=== PATIENT | female | born 1985 | race Caucasian/White ===

== ENCOUNTER 2023-03-10 07:18 | Emergency (ER) | payer SELFPAY ==
[2023-03-10 07:24] VITALS: BP 109/59; PULSE 81; RESP 18; TEMP 37.2; O2SAT 99; BMI 39.5
--- NOTE | 2023-03-10 07:32 | ED_ITS ---
HPI - Back Pain/Injury General Chief Complaint: Back Pain/Injury Stated Complaint: LOWER BACK PAIN Time Seen by Provider: 03/10/23 07:32 Source: patient and family Mode of arrival: walk-in Limitations: no limitations History of Present Illness HPI Narrative: Patient presents to emergency department complaining of low back pain. Patient states 3 days ago she woke up with lumbar Sacral pain. She denies any trauma. She states the pain radiates to bilateral hips. She denies any paresthesias.She denies any urinary, bowel incontinence, retention. He denies any lower extremity weakness. She has taken bmru-fhd-[id number] medications without any relief. She denies any fever, chills.She states she had imaging done years ago. Patient denies any flank pain, hematuria, dysuria. She denies any abdominal pain. She denies any lower extremity edema. She denies any chest pain, shortness of breath. Pain is worse when she tries to move, get off the commode could out of bed and even when she coughs. Pertinent past history: Denies IV drug use or incontinence Related Data Previous Rx's Medication Instructions Recorded hydrocodone 5 mg-acetaminophen 325 1 tab PO Q8H PRN pain 5 days #14 03/10/23 mg tablet tabs methylprednisolone 4 mg tablets in 4 mg PO DAILY #21 ea 03/10/23 a dose pack (Medrol (Tanner)) Allergies Allergy/AdvReac Type Severity Reaction Status Date / Time buspirone [From BuSpar] Allergy Severe Migraine Verified 03/10/23 07:23 sulfamethoxazole Allergy Severe Anaphylaxis Verified 03/10/23 07:23 [From Bactrim] trimethoprim [From Bactrim] Allergy Severe Anaphylaxis Verified 03/10/23 07:23 venlafaxine [From Effexor] Allergy Severe syncope Verified 03/10/23 07:23 acetaminophen [From Percocet] AdvReac Severe Anxiety Verified 03/10/23 07:23 oxycodone [From Percocet] AdvReac Severe Anxiety Verified 03/10/23 07:23 Review of Systems ROS Status of ROS 10 or more systems reviewed and unremarkable except as noted in history and below PFSH PFSH Social History Smoking status: Current every day smoker Exam Narrative Exam Narrative: Nurses notes and vital signs reviewed and patient is not hypoxic. General: Nontoxic, Well-appearing and in no apparent distress. Skin: Warm, dry, no pallor noted. No Rash Head: Normocephalic, atraumatic. Neck: Supple, non-tender. Eye: Pupils are equal, round and EOMI. No scleral icterus. Ears, Nose, Mouth, and Throat: TM clear, no posterior oropharynx erythema or nasal mucosal hypertrophy, uvula is mid-line Oral mucosa is moist Cardiovascular: Regular Rate and Rhythm without murmur, gallop or rub. Respiratory: No accessory muscle use or respiratory distress. Lungs are clear to auscultation, no wheezing, rales or rhonchi Chest Wall: no tenderness Back: No midline thoracic. Tenderness to palpation to the lumbosacral. No CVA tenderness Musculoskeletal: normal ROM, no calf or popliteal tenderness, no lower extremity edema/swelling GI: Abdomen is soft, non-distended. Normal bowel sounds. No masses appreciated. No tenderness to palpation. No rebound, guarding, or rigidity noted. Neurological: A&O x4. No cranial nerve dysfunction observed. No truncal ataxia. Moves all extremities. Sensation intact. Psychiatric: Cooperative and interactive. Normal mood and affect. Constitutional Vital Signs, click to edit/add: Last Vital Signs Temp 99.0 F 03/10/23 07:24 Pulse 81 03/10/23 07:24 Resp 18 03/10/23 07:24 BP 109/59 L 03/10/23 07:24 Pulse Ox 99 03/10/23 07:24 O2 Del Method Room Air 03/10/23 07:24 Course Vital Signs Vital signs: Vital Signs Temperature 99.0 F 03/10/23 07:24 Pulse Rate 81 03/10/23 07:24 Respiratory Rate 18 03/10/23 07:24 Blood Pressure 109/59 L 03/10/23 07:24 Pulse Oximetry 99 03/10/23 07:24 Oxygen Delivery Method Room Air 03/10/23 07:24 Temperature 99.0 F 03/10/23 07:24 Pulse Rate 81 03/10/23 07:24 Respiratory Rate 18 03/10/23 07:24 Blood Pressure 109/59 L 03/10/23 07:24 Pulse Oximetry 99 03/10/23 07:24 Oxygen Delivery Method Room Air 03/10/23 07:24 MDM - Back Pain/Injury MDM Narrative Medical decision making narrative: Patient given An injection of Toradol and Norflex. Helped her symptoms a little bit when she is still in significant amount of pain. CT scan results were discussed with the patient. Patient will be given a prescription for a steroid and [place]. She was given an injection of morphine prior to leaving the emergency department which helped her pain completely. At this time the patient is without objective evidence of an acute process requiring hospitalization or inpatient management. The patient has remained hemodynamically stable. No additional indication for emergent studies at this time. I answered all questions. Discussed discharge instructions including standard anticipatory guidance and what should prompt a return to the emergency department, including if they get worse are not getting better or develops any new or concerning symptoms. I've given them specific time frame in which to follow-up, and who to follow-up with. The patient demonstrates understanding. Patient is nontoxic and stable for discharge with outpatient follow-up. This note was created with the assistance of a speech recognition program. Although the intention is to generate documents that actually reflects the content of the visit, no guarantees can be provided that every mistake has been identified and corrected by editing. Medical Records Attestation: I reviewed the patient's medical records. Lab Data Attestation: I reviewed the patient's lab results. Discharge Plan Discharge Chief Complaint: Back Pain/Injury Clinical Impression: Lumbar radiculopathy Patient Disposition: Home, Self-Care Time of Disposition Decision: 09:12 Condition: Good Mode of Transportation: Private Vehicle Prescriptions / Home Meds: New hydrocodone-acetaminophen 5-325 mg tablet 1 tab PO Q8H PRN (Reason: pain) 5 Days Qty: 14 0RF methylprednisolone [Medrol (Tanner)] 4 mg tablets,dose pack 4 mg PO DAILY Qty: 21 0RF Instructions: Lumbar Radiculopathy (ED) Stand Alone Forms: Portal Instructions Referrals: LEN RAMIREZ APRN [Physician] - 1 week MARIE HENRY [Primary Care Provider] - 1 week Discharge Date/Time: 03/10/23 09:30
--- NOTE | 2023-03-10 07:57 | CT_ITS ---
The [address] [address] Patient Name: SILVER ANDUJAR MRN: [id number] date: 1985 Sex: F Assigned Patient Location: ER Current Patient Location: ER Accession/Order Number: [id number] Exam Date: 03/10/2023 08:13 Report Date: 03/10/2023 08:45 At the request of: JOSHUA BAILEY Procedure: CT lumbar spine wo con EXAM: CT lumbar spine wo con HISTORY: pain COMPARISON: None. TECHNIQUE: Axial CT images were obtained of the lumbar spine without intravenous contrast. Multiplanar reconstructions were performed. FINDINGS: No acute fracture or malalignment. A left paracentral broad-based disc bulge is present at the L4-L5 level causing moderate to severe stenosis on the left lateral recess. There is a central disc protrusion at the L5-S1 level causing mild to moderate stenosis of the spinal canal. Otherwise multilevel mild degenerative changes are present in the visualized spine. Unremarkable appearance of the paraspinal soft tissues. CT/CT lumbar spine wo con IMPRESSION: 1. No acute fracture. 2. Disc bulge and protrusion at the L4-L5 and L5-S1 levels respectively which have the potential to be contributing to radicular pain. An MRI of the lumbar spine is more sensitive for characterization of soft tissue abnormalities of the spine. Electronically authenticated by: YUE TRAYLOR Date: 03/10/2023 08:45
[2023-03-10] MEDS: ORPHENADRINE 60 MG/ 2 ML VIAL IM (08:22)
[2023-03-10] MEDS: KETOROLAC TROMETHAMINE 60 MG/2 ML VIAL IM (08:23)
[2023-03-10] MEDS: HYDROCODONE/ACETAMINOPHEN 5-325 MG TABLET 1 TAB PO (09:23)
== END 2023-03-10 09:30 | disposition home or self-care (01) ==
PROVIDERS: Emergency Provider Emergency Medicine; PCP Nurse Practitioner Family
DX: M54.16 Radiculopathy, lumbar region (principal); F17.210 Nicotine dependence, cigarettes, uncomplicated
CPT/HCPCS: 72131; 96372; 99285

== ENCOUNTER 2023-06-16 12:39 | Outpatient (OUT) | payer OTHER, SELFPAY ==
[2023-06-16 13:27] LABS: Bilirubin Urine NEGATIVE (NEGATIVE); Blood Urine NEGATIVE (NEGATIVE); Clarity Urine CLEAR (CLEAR); Color Urine YELLOW (YELLOW); Glucose Urine UA NEGATIVE (NEGATIVE); Ketones Urine TRACE mg/dL (NEGATIVE); Leukocyte Esterase Urine NEGATIVE (NEGATIVE); Nitrite Urine NEGATIVE (NEGATIVE); Protein Urine NEGATIVE (NEG/TRACE); Specific Gravity Urine >=1.030 (1.005-1.025); Urobilinogen Urine 0.2 EU/dL (0.2-1.0); pH Urine 5.5 (5.0-9.0)
[2023-06-16 13:47] LABS: WBC Urine 0-2 #/HPF (NONE SEEN)
[2023-06-16 13:48] LABS: Bacteria Urine TRACE #/HPF (NONE SEEN); Calcium Oxalate Crystals Urine RARE; Crystals Seen? Seen #/HPF (None Seen); Mucus Urine TRACE (NONE SEEN); Squamous Epithelial Cell Urine FEW #/LPF (NONE/RARE)
[2023-06-16 13:49] LABS: Cast Seen? NONE SEEN #/LPF (NONE SEEN); Urine Culture Indicated ALREADY ORDERED
== END 2023-06-16 12:40 | disposition home or self-care (01) ==
LOC: LAB 12:42
PROVIDERS: PCP Nurse Practitioner Family; Visit Provider Nurse Practitioner Family
DX: R30.0 Dysuria (principal)
CPT/HCPCS: 81001; 87086

== ENCOUNTER 2023-06-16 21:18 | Emergency (ER) | payer OTHER, SELFPAY ==
[2023-06-16 21:21] VITALS: BP 160/87; PULSE 73; RESP 18; TEMP 36.6; O2SAT 99; BMI 35.0
--- NOTE | 2023-06-16 21:30 | ED_ITS ---
HPI - Female Genitourinary General Chief complaint: Urogenital-Female Stated complaint: UTI Time Seen by Provider: 06/16/23 21:26 Source: patient Mode of arrival: walk-in Limitations: no limitations History of Present Illness HPI Narrative: presents complaining of recurrent UTI for past couple of months. States she was prescribed 2 separate courses of Cipro and it help but symptoms returned last week. Was prescribed Macrobid but symptoms continue. Today Cefdinir was prescribed. She now presents with suprapubic pain and hematuria. No fever , chills or nausea Related Data Home Medications Medication Instructions Recorded Confirmed alprazolam 0.5 mg tablet mg 06/16/23 cariprazine 1.5 mg capsule mg 06/16/23 (Vraylar) citalopram 40 mg tablet mg 06/16/23 gabapentin 300 mg capsule mg 06/16/23 hydrochlorothiazide 25 mg tablet mg 06/16/23 lisinopril 20 mg tablet mg 06/16/23 metoprolol succinate 25 mg mg PO 06/16/23 tablet,extended release 24 hr omeprazole 40 mg capsule,delayed mg 06/16/23 release tizanidine 4 mg tablet mg 06/16/23 Previous Rx's Medication Instructions Recorded hydrocodone 5 mg-acetaminophen 325 1 tab PO Q8H PRN pain 5 days #14 03/10/23 mg tablet tabs methylprednisolone 4 mg tablets in 4 mg PO DAILY #21 ea 03/10/23 a dose pack (Medrol (Tanner)) Allergies Allergy/AdvReac Type Severity Reaction Status Date / Time buspirone [From BuSpar] Allergy Severe Migraine Verified 03/10/23 07:23 sulfamethoxazole Allergy Severe Anaphylaxis Verified 03/10/23 07:23 [From Bactrim] trimethoprim [From Bactrim] Allergy Severe Anaphylaxis Verified 03/10/23 07:23 venlafaxine [From Effexor] Allergy Severe syncope Verified 03/10/23 07:23 oxycodone [From Percocet] AdvReac Severe Anxiety Verified 03/10/23 07:23 Review of Systems ROS Status of ROS 10 or more systems reviewed and unremarkable except as noted in history and below PFSH PFSH Social History Smoking status: Current every day smoker Exam Constitutional Vital Signs, click to edit/add: Last Vital Signs Temp 98 F 06/16/23 21:21 Pulse 73 06/16/23 21:21 Resp 18 06/16/23 21:21 BP 160/87 H 06/16/23 21:21 Pulse Ox 99 06/16/23 21:21 O2 Del Method Room Air 06/16/23 21:21 Common normals: no apparent distress, oriented x3, healthy appearing, alert and well nourished [facility] Common normals: normocephalic Eye Common normals: PERRL and EOMs intact bilaterally Respiratory Common normals: normal respiratory effort, no retractions, no use of accessory muscles and clear to auscultation bilaterally Cardio Common normals: regular rate, regular rhythm, S1 normal heart sound and S2 normal heart sound GI Other: mild suprapubic tenderness Extremity Common normals: normal to inspection and full ROM Neuro Common normals: oriented x3, CN's II-XII intact bilaterally, moves all extremities, no focal motor deficits and no sensory deficits noted Psych Appearance: grossly normal Course Vital Signs Vital signs: Vital Signs Temperature 98 F 06/16/23 21:21 Pulse Rate 73 06/16/23 21:21 Respiratory Rate 18 06/16/23 21:21 Blood Pressure 160/87 H 06/16/23 21:21 Pulse Oximetry 99 06/16/23 21:21 Oxygen Delivery Method Room Air 06/16/23 21:21 Temperature 98 F 06/16/23 21:21 Pulse Rate 73 06/16/23 21:21 Respiratory Rate 18 06/16/23 21:21 Blood Pressure 160/87 H 06/16/23 21:21 Pulse Oximetry 99 06/16/23 21:21 Oxygen Delivery Method Room Air 06/16/23 21:21 MDM - Female Genitourinary MDM Narrative Medical decision making narrative: patient presents with history of recurrent UTI. complains of hematuria and increased pain tonight. CT with evidence of cystitis and also rupture adnexa cyst with free fluid that is most likely the cause of the increased pain. Patient is resting comfortably at this time. Patient given dose of Rocephin and discharged to continue antibiotics prescribed by her PCP Lab Data Labs: Lab Results 06/16/23 Range/Units 21:52 WBC 9.6 (4.0-11.0) 10^3/uL RBC 4.20 (4.20-5.40) 10^6/uL Hgb 13.1 (12.0-16.0) g/dL Hct 39.3 (36.0-48.0) % MCV 93.6 (81.0-99.0) fL MCH 31.2 (26.7-34.0) pg MCHC 33.3 (29.9-35.2) g/dL RDW 12.9 (11.0-15.0) % Plt Count 189 (150-450) 10^3/uL MPV 10.7 (9.5-13.5) fL Neut % (Auto) 57.5 (43.0-75.0) % Lymph % (Auto) 29.8 (20.5-60.0) % [place] % (Auto) 8.4 (1.7-12.0) % Eos % (Auto) 3.6 (0.9-7.0) % Baso % (Auto) 0.4 (0.2-2.0) % Neut # (Auto) 5.5 (1.4-6.5) 10^3/uL Lymph # (Auto) 2.9 (1.2-3.8) 10^3/uL [place] # (Auto) 0.8 (0.3-0.8) 10^3/uL Eos # (Auto) 0.4 (0.0-0.7) 10^3/uL Baso # (Auto) 0.0 (0.0-0.1) 10^3/uL Abs Immat Gran (auto) 0.03 (0.00-0.03) 10^3/uL Imm/Tot Granulo (auto) 0.3 (0.0-0.5) % Sodium 135 L (136-145) mmol/L Potassium 3.4 L (3.5-5.1) mmol/L Chloride 101 (98-107) mmol/L Carbon Dioxide 27.7 (21.0-32.0) mmol/L Anion Gap 9.7 BUN 18.0 (7.0-18.0) mg/dL Creatinine 1.00 (0.55-1.02) mg/dL Est GFR ( Amer) >60 (>=60) Est GFR (Non-Af Amer) >60 (>=60) BUN/Creatinine Ratio 18.0 Glucose 97 (74-106) mg/dL Lactate 0.9 (0.4-2.0) mmol/L Calcium 8.6 (8.5-10.1) mg/dL Discharge Plan Discharge Chief Complaint: Urogenital-Female Clinical Impression: Ruptured ovarian cyst, Cystitis Patient Disposition: Home, Self-Care Prescriptions / Home Meds: No Action hydrocodone-acetaminophen 5-325 mg tablet 1 tab PO Q8H PRN (Reason: pain) 5 Days Qty: 14 0RF methylprednisolone [Medrol (Tanner)] 4 mg tablets,dose pack 4 mg PO DAILY Qty: 21 0RF citalopram 40 mg tablet tizanidine 4 mg tablet lisinopril 20 mg tablet omeprazole 40 mg capsule,delayed release(DR/EC) alprazolam 0.5 mg tablet gabapentin 300 mg capsule hydrochlorothiazide 25 mg tablet metoprolol succinate 25 mg tablet extended release 24 hr PO Vraylar 1.5 mg capsule Instructions: Ovarian Cyst (ED), Acute Urinary Retention in Women (ED) Stand Alone Forms: Portal Instructions Referrals: MARIE HENRY [Primary Care Provider] - 1 week Discharge Date/Time: 06/17/23 00:20
--- NOTE | 2023-06-16 21:34 | CT_ITS ---
The [address] [address] Patient Name: SILVER ANDUJAR MRN: [id number] date: 1985 Sex: F Assigned Patient Location: ER Current Patient Location: ER Accession/Order Number: [id number] Exam Date: 06/16/2023 22:20 Report Date: 06/16/2023 22:57 At the request of: DC HATFIELD Procedure: CT abdomen pelvis w con EXAMINATION: CT abdomen pelvis w con, 06/16/2023 7:20 PM PDT HISTORY: cystitis COMPARISON: CT lumbar spine 09/27/2021. CT abdomen and pelvis 02/07/2021. TECHNIQUE: CT scan of the abdomen and pelvis was performed with IV contrast. CT dose reduction technique was used, including Automated Exposure Control. FINDINGS: Lung: No significant finding. Liver: No significant finding. Gallbladder: Absent. Spleen: No significant finding. Pancreas: No significant finding. Adrenal glands: No significant finding. Kidneys, ureters and bladder: Mild circumferential bladder wall thickening. Delayed urographic imaging performed, no suspicious urothelial filling defect. No renal/urinary tract calculi are identified. No hydronephrosis. Bowel: Normal appendix. No evidence of bowel obstruction. Peritoneum/retroperitoneum: No significant finding. Lymph nodes: No significant finding. Vessels: No significant finding. Body wall: No significant finding. Reproductive: 5.5 cm right adnexal cyst with evidence of adjacent rupture/free fluid in the pelvis. Bones: L4-L5 disc extrusion. L5-S1 disc protrusion. L2-L3 disc extrusion. Grossly similar prior exam. CT/CT abdomen pelvis w con IMPRESSION: Mild bladder wall thickening, likely cystitis. No renal/urinary tract calculi. No hydronephrosis. No suspicious urothelial filling defect. 5.5 cm right adnexal cyst with evidence of rupture/trace free fluid. Follow-up pelvic ultrasound in 6 weeks recommended. Electronically authenticated by: BRIAN CARMICHAEL Date: 06/16/2023 22:57
--- NOTE | 2023-06-16 21:43 | PC.NURSE ---
Pt presents to ER for a UTI that she has been battling for approximately 2 months Pt has been on numerous different antibiotics for this infection and has worked closely with her PCP Pt came in today to give a new urine sample but had not heard from her PCP Bassem pt began experiencing pain into her lower back Pt is currently on Cefdinir, she began that one today and stopped the Macrobid
[2023-06-16 21:59] LABS: Basophils Percent Auto 0.4 % (0.2-2.0); Eosinophils Absolute Auto 0.4 10^3/uL (0.0-0.7); Eosinophils Percent Auto 3.6 % (0.9-7.0); Hematocrit 39.3 % (36.0-48.0); Hemoglobin 13.1 g/dL (12.0-16.0); Immature Granulocytes Abs Auto 0.03 10^3/uL (0.00-0.03); Immature Granulocytes Pct Auto 0.3 % (0.0-0.5); Lymphocytes Absolute Auto 2.9 10^3/uL (1.2-3.8); Lymphocytes Percent Auto 29.8 % (20.5-60.0); Mean Corpuscular HGB Conc 33.3 g/dL (29.9-35.2); Mean Corpuscular Hemoglobin 31.2 pg (26.7-34.0); Mean Corpuscular Volume 93.6 fL (81.0-99.0); Mean Platelet Volume 10.7 fL (9.5-13.5); Monocytes Absolute Auto 0.8 10^3/uL (0.3-0.8); Monocytes Percent Auto 8.4 % (1.7-12.0); Neutrophils Absolute Auto 5.5 10^3/uL (1.4-6.5); Neutrophils Percent Auto 57.5 % (43.0-75.0); Platelet Count 189 10^3/uL (150-450); Red Cell Distribution Width 12.9 % (11.0-15.0); White Blood Count 9.6 10^3/uL (4.0-11.0)
[2023-06-16 22:11] LABS: Anion Gap 9.7; Calcium 8.6 mg/dL (8.5-10.1); Carbon Dioxide 27.7 mmol/L (21.0-32.0); Chloride 101 mmol/L (98-107); Estimated GFR (African America >60 (>=60); Estimated GFR (Non-African Ame >60 (>=60); Glucose 97 mg/dL (74-106); Potassium 3.4 mmol/L (3.5-5.1); Sodium 135 mmol/L (136-145)
[2023-06-16 22:20] LABS: Lactate/Lactic Acid 0.9 mmol/L (0.4-2.0)
[2023-06-16] MEDS: 0.9 % SODIUM CHLORIDE 1,000 ML 999 ML IV (22:38)
[2023-06-16] MEDS: CEFTRIAXONE 1,000 MG in 0.9 % SODIUM CHLORIDE 50 ML 100 MG IV (23:44)
== END 2023-06-17 00:20 | disposition home or self-care (01) ==
PROVIDERS: Emergency Provider Internal Medicine; PCP Nurse Practitioner Family
DX: N30.91 Cystitis, unspecified with hematuria (principal); N83.201 Unspecified ovarian cyst, right side; R30.0 Dysuria; Z79.899 Other long term (current) drug therapy; F17.210 Nicotine dependence, cigarettes, uncomplicated
CPT/HCPCS: 36415; 74177; 80048; 81001; 83605; 85025; 87086; 96365; 99285; Q9967

== ENCOUNTER 2023-07-18 13:39 | Outpatient (OUT) | payer BC, SELFPAY ==
--- NOTE | 2023-07-18 15:39 | PM.CN ---
Consult Note: HPI Data of Consult Patient: new to practice Consult date: 07/18/23 Requesting Physician: Rony Daniels MD Primary Care Provider: MARIE HENRY Consult Narrative Reason for consult: Low back pain, bilateral lower extremity pain Narrative: 37yof who presents for evaluation. worsening low back pain with radiation into lower extremities. continues in provider directed home exercise program >6 weeks >3x/week, has engaged in chiropractice therapy. no relief. imaging reviewed, which shows disc bulging with resultant stenosis at l4-5, l5-s1. has trialed gabapentin, mobic, robaxin, with limited benefit. denies adverse med side effects. cc:: CC: Rony Daniels MD Review of Systems ROS Status of ROS 10 or more systems reviewed and unremarkable except as noted in history and below PFSH PFSH Social History Smoking status: Current every day smoker Meds Home Medications and Allergies Home Medications Medication Instructions Recorded Confirmed Type alprazolam 0.5 mg tablet 0.5 mg PO DAILY PRN sleep 06/16/23 07/18/23 History cariprazine 1.5 mg capsule 1.5 mg PO Q24H 06/16/23 07/18/23 History (Vraylar) citalopram 40 mg tablet 40 mg PO DAILY 06/16/23 07/18/23 History gabapentin 300 mg capsule 300 mg PO DAILY 06/16/23 07/18/23 History hydrochlorothiazide 25 mg tablet 25 mg PO DAILY 06/16/23 07/18/23 History lisinopril 20 mg tablet 20 mg PO DAILY 06/16/23 07/18/23 History metoprolol succinate 25 mg 25 mg PO DAILY 06/16/23 07/18/23 History tablet,extended release 24 hr acetaminophen 500 mg tablet 1,000 mg PO DAILY PRN pain 07/18/23 07/18/23 History (Acetaminophen Pain Relief) biotin 10,000 mcg capsule 10,000 mcg PO DAILY 07/18/23 07/18/23 History meloxicam 15 mg tablet 15 mg PO DAILY 07/18/23 07/18/23 History Allergies Allergy/AdvReac Type Severity Reaction Status Date / Time buspirone [From BuSpar] Allergy Severe Migraine Verified 03/10/23 07:23 sulfamethoxazole Allergy Severe Anaphylaxis Verified 03/10/23 07:23 [From Bactrim] trimethoprim [From Bactrim] Allergy Severe Anaphylaxis Verified 03/10/23 07:23 venlafaxine [From Effexor] Allergy Severe syncope Verified 03/10/23 07:23 oxycodone [From Percocet] AdvReac Severe Anxiety Verified 03/10/23 07:23 Exam Narrative Exam Narrative: Psych-alert and oriented x 3. Attentive and appropriate, constitutionally normal, displays normal mood and affect per situation. There are no obvious deficits in memory, reasoning, or intellect.? Skin-no obvious rashes, bruising, erythema noted to the patient's area of pain.? Extremities- extremities are warm with minimal edema and palpable pulses. Lumbar-tenderness to palpation noted in the lumbar spine and paraspinal musculature. Pain is elicited with flexion, extension, and lateral rotation of the lumbar spine. Range of motion is diminished with these motions. Facet loading maneuvers are positive.? Strength-noted to be unremarkable with the exception of decreased strength rated at 4 out of 5 in bilateral quadriceps femoris, anterior tibialis. Sensory-no notable sensory deficits in the bilateral lower extremities to touch or pinprick in all dermatomal distributions with the exception to decreased sensation to the bilateral L4, 5 dermatomal distribution Coordination remains intact.? Gait remains non-antalgic. Assessment and Plan Assessment and Plan (1) Lumbar radiculopathy: (2) Lumbar disc displacement without myelopathy: (3) Lumbar stenosis with neurogenic claudication: Plan 37yof who presents for evaluation. failed conservative measures, as noted. imaging reviewed, as noted. given symptoms and imaging, prudent to attempt bilateral l4-5 tfesi under fluoroscopic guidance. depending on response, she may also benefit from bilateral l5-s1 tfesi. she is in agreement. medications and PDMP reviewed. UDS obtained. will trial T#3 bid prn. follow up after procedure.
== END 2023-07-18 13:40 | disposition home or self-care (01) ==
PROVIDERS: PCP Nurse Practitioner Family; Visit Provider Anesthesiology
DX: M54.16 Radiculopathy, lumbar region (principal); M51.26 Other intervertebral disc displacement, lumbar region; M48.062 Spinal stenosis, lumbar region with neurogenic claudication
CPT/HCPCS: G0463

== ENCOUNTER 2023-08-01 10:36 | Day surgery (SDC) | payer BC, SELFPAY ==
[2023-08-01 11:04] VITALS: BP 117/76; PULSE 76; RESP 16; TEMP 36.3; O2SAT 98
[2023-08-01 11:39] VITALS: BP 125/64; PULSE 66; RESP 18; O2SAT 99
[2023-08-01 11:43] VITALS: BP 123/71; PULSE 68; RESP 18; O2SAT 98
[2023-08-01] MEDS: 0.9 % SODIUM CHLORIDE 10 ML INJ (11:48)
[2023-08-01] MEDS: IOHEXOL 240 MG/ML - 10 ML VIAL 24 MG INJ (11:49)
[2023-08-01] MEDS: BUPIVACAINE HCL 0.25% PF 25 MG/10 ML VIAL INJ (11:49)
[2023-08-01] MEDS: LIDOCAINE HCL 2% PF 100 MG/5 ML VIAL 3 ML INJ (11:49)
[2023-08-01] MEDS: TRIAMCINOLONE ACETONIDE 40 MG/ML VIAL 80 MG INJ (11:50)
--- NOTE | 2023-08-22 07:49 | W.PM.PROCNOT ---
Date of procedure: 08/01/23 Pre-op diagnosis: Lumbar stenosis with neurogenic claudication Post-op diagnosis: same as pre-op Procedure: Procedure: Bilateral L4-5 transforaminal epidural steroid injection Medications: Bupivacaine 0.25% 3cc, kenalog 80mg The patient was seen and examined in the preoperative holding area.? Informed consent was obtained and placed on the chart.? Patient was brought to the medical procedure unit and placed in the prone position where a timeout was completed verifying the correct patient, procedure site, position, and planned special equipment using sterile aseptic technique.? Under direct fluoroscopic visualization a 25-gauge Quincke tipped spinal needle was advanced at level left L4-5 to the designated neural foramen where contrast dye was injected to show adequate spread.? There was no evidence of vascular or adverse uptake.? Epidural spread was appreciated.? The above-mentioned injectate was then placed in a 1.5 mL aliquot preceded by negative aspiration.? The needle was removed. The same procedure, at the same level, was completed on the opposite side. ? Patient was taken to the postprocedural recovery area and monitored for an appropriate length of time before found suitable for discharge in the accompaniment of a responsible adult. Anesthesia: Local Surgeon: Rony Daniels Pathology: none sent Condition: stable Disposition: no change
== END 2023-08-01 11:46 | disposition home or self-care (01) ==
PROVIDERS: PCP Nurse Practitioner Family; Visit Provider Anesthesiology
DX: M48.062 Spinal stenosis, lumbar region with neurogenic claudication (principal)
CPT/HCPCS: 64483; Q9966

== ENCOUNTER 2023-08-22 08:55 | Day surgery (SDC) | payer BC, SELFPAY ==
--- OUTSIDE RECORDS SUMMARY | 2023-08-22 08:59 | XMS_ITS | CCD ---
Author Name Unknown Address [address] [place] [address] Organization [facility] Care Team Providers Care Candle Making Supervisor Name Role Phone Unavailable Primary Care Provider UnavailRAHEEL Yadav Attending Unavailable BESSIE MOSES Referring Unavailable Kera, Physician Primary Care Provider UnavailMARIE Jorge Admitting Unavailable MARIE HENRY Attending Unavailable MARIE HENRY Primary Care Unavailable JOSHUA BAILEY Admitting Unavailable JOSHUA BAILEY Attending Unavailable MARIE HENRY Primary Care Unavailable JON, DR RICARDO Mcdermott Consulting Unavailable JOSHUA BAILEY Consulting Unavailable MARIE HENRY Primary Care Unavailable CATHERINE BAEZ Consulting Unavailable JOSHUA BAILEY Admitting Unavailable JOSHUA BAILEY Attending Unavailable UMBERTO SO Consulting Unavailable MARIE HENRY Primary Care Unavailable KEEGAN, DR TERRANCE Workman Admitting Unavailgianna ALLISON, DR TERRANCE Workman Attending UnavailDR RICARDO Abdi V Consulting Unavailable CATHERINE CARUSO Consulting Unavailable DR MARJAN HAILE Primary Care Unavailable DEAN LOBO Consulting Unavailable DEAN LOBO Admitting Unavailable DEAN LOBO Attending Unavailable CARISSA BRADFORD Attending Unavailable Henrry Vargas DO Primary Care Provider HENRRY VARGAS Primary Care Unavailab Laurel Dixon Attending Unavailable Frances BARROW, Rony Clifford Attending Unavailable Frances BARROW, Rony Clifford Attending Unavailable Allergies Allergy Classification Reported Allergen(s) Allergy Type Date of Onset Reaction(s) Facility (3 sources) Acetaminophen / oxyCODONE Drug Allergy 04-21-20 18 Itching [facility]- [place], [place] (3 sources) busPIRone Drug Allergy 04-21-20 18 Other: See Comments [place], [place] (3 sources) Sulfamethoxazole / Trimethoprim Drug Allergy 04-21-20 18 Anaphylaxis [place], [place] (2 sources) Acetaminophen / oxyCODONE; 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: [Percocet] Drug Allergy 08-15-19 15 [facility] (2 sources) Adhesive agent Drug allergy (disorder) 11-28-19 15 [facility] (3 sources) busPIRone; 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: [BuSpar] Drug Allergy 08-07-20 16 [facility] (2 sources) Latex; 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: [Latex] Drug allergy (disorder) [facility] (1 source) Sulfamethoxazole / Trimethoprim Drug Allergy [facility] (1 source) venlafaxine Drug Allergy [facility] (1 source) Adhesive bandage; 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: [Adhesive Bandage] Propensity to adverse reactions (disorder) [facility] Repository (1 source) Sulfamethoxazole / Trimethoprim; 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: [Bactrim] Drug Allergy [facility] Repository Medications Current Medications Medication Drug Class(es) Dates Sig (Normalized) Sig (Original) citalopram 40 mg oral tablet (2 sources) Serotonin Reuptake Inhibitor citalopram (CELEXA) 40 MG tablet Take 60 mg by mouth daily 0 Active Completed/Discontinued Medications Medication Drug Class(es) Dates Sig (Normalized) Sig (Original) hydroCHLOROthiazide 25 mg oral tablet (3 sources) Thiazide Diuretic take 1 tablet by mouth once daily hydroCHLOROthiazide 25 mg tablet Take 25 mg by mouth once daily. 0 Active Comment on above: Take 25 mg by mouth once daily. lisinopril 20 mg oral tablet (3 sources) Angiotensin Converting Enzyme Inhibitor take 1 tablet by mouth once daily lisinopril (ZESTRIL) 20 mg tablet Take 20 mg by mouth once daily. 0 Active Comment on above: Take 20 mg by mouth once daily. 24 hr metoprolol succinate 25 mg extended release oral tablet (3 sources) beta-Adrenergic Margo take 1 tablet by mouth once daily metoprolol succinate ER (TOPROL XL) 25 mg 24 hr tablet Take 25 mg by mouth once daily. 0 Active take 1 tablet by mouth once blanca y metoprolol succinate (TOPROL XL) 50 MG extended release tablet Take 50 mg by mouth daily 0 Active Comment on above: Take 25 mg by mouth once daily. Problems Active Problems Problem Classification Problem Date Documented Date Episodic/Chronic Anxiety disorders (1 source) Anxiety disorder, unspecified; 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: [ANXIETY DISORDER UNSPECIFIED] Onset: 06-30-2022 Chronic Essential hypertension (1 source) Essential hypertension; 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: [Essential (primary) hypertension] 07-15-2023 Chronic External cause codes: Natural/environment (1 source) Exposure to other specified factors, initial encounter; 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: [Exposure to needle, initial encounter] Headache; including migraine (5 sources) Headache; including migraine; 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: [HEADACHE UNSPECIFIED] Onset: 08-11-2021 Osteoarthritis (1 source) Unspecified osteoarthritis, unspecified site; 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: [UNSPECIFIED OSTEOARTHRITIS UNS SITE] Onset: 06-30-2022 Chronic Other aftercare (1 source) Other alf (current) drug therapy; 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: [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] Onset: 06-30-2022 Episodic Other connective tissue disease (1 source) Synovial cyst of popliteal space [[place]der], right knee; 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: [Synovial cyst of popliteal space ([place]), right knee] Onset: 08-26-2022 Episodic Other connective tissue disease (1 source) Pain in right lower leg; 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: [Pain in right lower leg] Onset: 08-26-2022 Episodic Other nervous system disorders (1 source) Other chronic pain; 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: [OTHER CHRONIC PAIN] Onset: 06-30-2022 Chronic Residual codes; unclassified (1 source) Acquired absence of other specified parts of digestive tract; 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: [ACQ ABSENCE OTH PART DIGESTV TRACT] Onset: 06-30-2022 Episodic Residual codes; unclassified (1 source) Acquired absence of both cervix and uterus; 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: [ACQUIRED ABSENCE BOTH CERVIX AND UTERUS] Onset: 06-30-2022 Episodic Spondylosis; intervertebral disc disorders; other back problems (1 source) Other intervertebral disc displacement, lumbar region; 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: [OTH IV DISC DISPLACEMENT LUMBAR RGN] Onset: 10-02-2021 Chronic Substance-related disorders (1 source) Nicotine dependence, cigarettes, uncomplicated; 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: [NICOTINE DEPEND CIGARETTES UNCOMP] Onset: 06-30-2022 Chronic Unclassified (4 sources) LOW BACK PAIN, UNSPECIFIED; 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: [LOW BACK PAIN, UNSPECIFIED] Onset: 10-02-2021 Past or Other Problems Problem Classification Problem Date Documented Da te Episodic/Chronic Conditions associated with dizziness or vertigo (3 sources) Dizziness and giddiness; 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: [DIZZINESS AND GIDDINESS] Onset: 12-21-2021 Episodic Other injuries and conditions due to external causes (1 source) History of falling; 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: [HISTORY OF FALLING] Onset: 10-02-2021 Episodic Syncope (1 source) Syncope and collapse; 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: [SYNCOPE AND COLLAPSE] Onset: 12-23-2021 Episodic Unclassified (1 source) LOW BACK PAIN, UNSPECIFIED; 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: [LOW BACK PAIN, UNSPECIFIED] Onset: 06-28-2022 Results Test Name Value Interpretation Reference Range Facility [facility] 07-21-2023 Consent [id number] [facility] In office Testingon 07-21-20 23 In office Testing [id number] FF [facility] Registrationon 07-21-2023 Registration [id number] F [facility] CNOVon 07-15-2023 CNOV Office Visit (WALKMN ) -------- SILVER ANDUJAR ([id number]) 1985 F Date Time Provider Department 07/15/23 1:45 PM PRISCILLA ALBERT During your visit today, we recorded the following information about you: Temperature Pulse Blood pressure 98 degrees 89/minute 131/81 Priscilla Albert APRN.[facility] 07/15/2023 4:34 PM Signed CC: Headache and high BP HPI: Silver Andujar is a 37 year old female who presents to the [facility] walk in clinic for the above chief complaint. Lives over an hr away, drove to work this AM and realized she forgot to take BP meds 0900 headache started - BP on floor 144/80, HR 89 Usual SBP 110s-120s, HR 50s After headache, then noted blurry vision, feels like objects are not in focus At 1000 took Tylenol 1000mg - no relief Coughing can make pain worse Mild shortness of breath, notices this when HR is higher than her normal Mild lightheadedness/dizzines s with position changes, not worse than her usual States she rarely misses taking her BP meds 2018 - dx with HTN Daily meds - 25mg HCTZ, 25mg Metoprolol Succinate, 20mg Lisinopril Denies changes in strength, chest pain, palpitations, numbness/tingling Past Medical History: No past medical history on file. There is no problem list on file for this patient. Past Surgical History: No past surgical history on file. Medications: No current outpatient medications on file prior to visit. No current facility-administered medications on file prior to visit. PE: BP 131/81 Pulse 89 Temp 36.7 ?C (98 ?F) (Oral) General: Alert, calm, cooperative, pleasant. Speech clear and coherent Eyes: Conjunctiva clear without injection or drainage Ears: External ear normal. Heart: Regular rate and rhythm. No murmurs, gallops, or rubs Lungs: Breathing unlabored. Clear to auscultation bilaterally without wheezes, rales or rhonchi Neuro: CN III-XII grossly intact. PERRL, EOMI. motor 5+ and equal bilateral upper/lower extremity. Gait steady. Assessment and Plan 1. Primary hypertension - ICD9: 401.9, ICD10: I10 - Symptoms likely related to missing medications this morning - Continue current medications, will take as soon as get home - Will have her spouse come pick her up instead of driving home - Recommend home blood pressure monitoring - Discussed red flag symptoms and when to seek emergency care Gayatri Tony, MSN, RN-BC WHEEL INSPECTOR Student Gayatri Toyn, student nurse practitioner, and myself have interviewed the patient. I re-performed the HPI and physical exam. Assessment and plan was developed together. I spent a total of 30 minutes on the date of the service which included preparing to see the patient, [id number] patient care, completing clinical documentation, obtaining and/or reviewing separately obtained history, performing a medically appropriate examination, counseling and educating the patient/family/caregiver , and ordering medications, tests, or procedures. Priscilla Albert APRN.MOBILITY ENGINEER Referring Provider: SELF [200] Allergies As of Date: 07/15/2023 Noted Allergy Reaction BUSPIRONE 04/21/2018 14 - Other: See Comments OXYCODONE-ACETAMINOPHEN 04/21/2018 9 - Itching SULFAMETHOXAZOLE-TRIMETH OPRIM 04/21/2018 10 - Anaphylaxis Date Reviewed: 07/15/2023 Reviewed by: Priscilla Albert APRN.MOBILITY ENGINEER - Fully Assessed Reason for Visit: Headache [52] Cmt: Pt is here for a headache and high blood pressure that started a couple days ago Primary Visit Diagnosis:Primary hypertension [I10] Prescriptions as of 07/15/2023 - metoprolol succinate ER (TOPROL XL) 25 mg 24 hr tablet Take 25 mg by mouth once daily. - lisinopril (ZESTRIL) 20 mg tablet Take 20 mg by mouth once daily. - hydroCHLOROthiazide 25 mg tablet Take 25 mg by mouth once daily. Problem List As Of Date: 07/15/2023 (None) Letter Text Encounter Status:Closed by PRISCILLA ALBERT on 07/15/23 Normal [facility] US DUP LOWER EXTREMITY RIGHT VENon 08-26-2022 DUP LOWER EXTREMITY RIGHT SUNNY EXAMINATION: DUPLEX VENOUS ULTRASOUND OF THE RIGHT LOWER EXTREMITY 08/26/2022 8:17 am TECHNIQUE: Duplex ultrasound using B-mode/gustafson scaled imaging and Doppler spectral analysis and color flow was obtained of the deep venous structures of the right lower extremity. COMPARISON: None. HISTORY: ORDERING SYSTEM PROVIDED HISTORY: pain TECHNOLOGIST PROVIDED HISTORY: Reason for exam:->pain What reading provider will be dictating this exam?->CRC FINDINGS: The visualized veins of the right lower extremity are patent and free of echogenic thrombus. The veins demonstrate good compressibility with normal color flow study and spectral analysis. Incidental note is made of a 2.7 x 0.7 x 1.2 cm popliteal cyst. IMPRESSION: No evidence of DVT in the right lower extremity. Small popliteal cyst. Interpreted by: Henrry Sweeney MD Signed by: Henrry Sweeney MD 08/26/22 Final result Normal [facility] Comment on above: Order Comment: Reaso n for exam:->pain What reading provider will be dictating this exam?->CRC XR KNEE RIGHT (3 VIEWS)on XR KNEE RIGHT (3 VIEWS) EXAMINATION: THREE XRAY VIEWS OF THE RIGHT KNEE 08/26/2022 8:35 am COMPARISON: None. HISTORY: ORDERING SYSTEM PROVIDED HISTORY: pain TECHNOLOGIST PROVIDED HISTORY: Reason for exam:->pain FINDINGS: No acute fracture or dislocation is identified. Mild degenerative changes are seen, greatest in the lateral femorotibial compartment. There is no suprapatellar effusion. IMPRESSION: Mild degenerative changes. No acute bony abnormality or effusion. Interpreted by: Henrry Sweeney MD Signed by: Henrry Sweeney MD 08/26/22 Final result Normal [facility] Comment on above: Order Comment: Reaso n for exam:->pain XR LSPINE 2_3 VIEWSon 2021 XR LSPINE 2_3 VIEWS EXAMINATION: XR LSPI NE 2_3 VIEWS HISTORY: Low back pain COMPARISON: No relevant comparison available. FINDINGS: BONES: No acute fracture or dislocation. Mild degenerative spondylosis and facet osteoarthropathy DISC SPACES: Normal. No significant disc height narrowing, subluxation, or endplate abnormality. PARASPINOUS: Negative. No paraspinous abnormality is seen. OTHER: Negative. IMPRESSION: Mild degenerative changes Electronically authenticated by: RICARDO WEBB Date: 2022-06-28 14:32 Normal [facility] CULTURE URINEon 12-22-2021 CULTURE URINE Culture Observations : MODERATE GROWTH OF MIXED SKIN CHARLY. NO POTENTIAL PATHOGENS SEEN. Normal [facility] Comment on above: Performed By: #### U RCX #### [facility] [address] [address] [address] Reba Swain CBC W MANUAL DIFFon 12-22-19 22 ATYPICAL LYMPH # Normal [facility] Comment on above: Performed By: #### C BCMAN #### [facility] [address] [address] [address] Reba Swain ATYPICAL LYMPH % Normal [facility] Comment on above: Performed By: #### C BCMAN #### [facility] [address] [address] [address] Reba Swain BAND # Normal 0.0-0.3 [facility] Comment on above: Performed By: #### C BCMAN #### [facility] [address] [place] [address] Dr. Reba Swain BAND % Normal 0-5 [facility] Comment on above: Performed By: #### C BCMAN #### [facility] [address] [place] [address] Dr. Reba Swain BASOM # 0.08 103/ul Normal 0.00-0.10 [facility] Comment on above: Performed By: #### C BCMAN #### [facility] [address] [place] [address] Dr. Reba Swain BASOM % 1.0 % Normal 0.2-2.0 [facility] Comment on above: Performed By: #### C BCMAN #### [facility] [address] [place] [address] Dr. Reba Swain BLAST # Normal [facility] Comment on above: Performed By: #### C BCNIKI #### [facility] [address] [place] [address] Dr. Reba Swain BLAST % Normal [facility] Comment on above: Performed By: #### C BCNIKI #### [facility] [address] [place] [address] Dr. Reba Swain CORRECTED WBC Normal 4.0-11.0 [facility] Comment on above: Performed By: #### C BCNIKI #### [facility] [address] [place] [address] Dr. Reba Swain EOS # 0.08 103/ul Normal 0.00-0.70 [facility] Comment on above: Performed By: #### C BCMAN #### [facility] [address] [place] [address] Dr. Reba Swain EOS% 1.0 % Normal 0.9-7.0 [facility] Comment on above: Performed By: #### C BCNIKI #### [facility] [address] [place] [address] Dr. Reba Swain HCT 42.3 % Normal 36.0-48.0 [facility] Comment on above: Performed By: #### C TRAMAINE #### [facility] [address] [address] [address] Reba Swain HGB 14.0 g/dl Normal 12.0-16.0 [facility] Comment on above: Performed By: #### C TRAMAINE #### [facility] [address] [address] [address] Reba Swain LYMPHM # 0.83 103/ul Critically low 1.20-3.80 [facility] Comment on above: Performed By: #### C TRAMAINE #### [facility] [address] [address] [address] Reba Swain LYMPHM% 10.0 % Critically low 20.5-60.0 [facility] Comment on above: Performed By: #### C TRAMAINE #### [facility] [address] [place] [address] Dr. Reba Swain MCH 30.6 pg Normal 26.7-34.0 [facility] Comment on above: Performed By: #### C TRAMAINE #### [facility] [address] [place] [address] Dr. Reba Swain MCHC 33.1 g/dl Normal 29.9-35.2 [facility] Comment on above: Performed By: #### C TRAMAINE #### [facility] [address] [address] [address] Reba Swain MCV 92.4 fL Normal 81.0-99.0 [facility] Comment on above: Performed By: #### C TRAMAINE #### [facility] [address] [place] [address] Dr. Reba Swain METAMYELOCYTE # Normal [facility] Comment on above: Performed By: #### C TRAMAINE #### [facility] [address] [place] [address] Dr. Reba Swain METAMYELOCYTE % Normal [facility] Comment on above: Performed By: #### C TRAMAINE #### [facility] [address] [address] [address] Reba Swain MONOM# 0.25 103/ul Critically low 0.30-0.80 [facility] Comment on above: Performed By: #### C TRAMAINE #### [facility] [address] [place] [address] Dr. Reba Swain MONOM% 3.0 % Normal 1.7-12.0 [facility] Comment on above: Performed By: #### C TRAMAINE #### [facility] [address] [place] [address] Dr. Reba Swain MPV 10.3 fL Normal 9.5-13.5 [facility] Comment on above: Performed By: #### C BCMAN #### [facility] [address] [place] [address] Dr. Reba Swain MYELOCYTE # Normal [facility] Comment on above: Performed By: #### C TRAMAINE #### [facility] [address] [place] [address] Dr. Reba Swain MYELOCYTE % Normal [facility] Comment on above: Performed By: #### C TRAMAINE #### [facility] [address] [place] [address] Dr. Reba Swain NRBC Normal [facility] Comment on above: Performed By: #### C TRAMAINE #### [facility] [address] [place] [address] Dr. Reba Swain PLT 190 103/ul Normal 150-450 [facility] Comment on above: Performed By: #### C TRAMAINE #### [facility] [address] [place] [address] Dr. Reba Swain RBC 4.58 106/ul Normal 4.20-5.40 [facility] Comment on above: Performed By: #### C TRAMAINE #### [facility] [address] [place] [address] Dr. Reba Swain RDW 13.3 % Normal 11.0-15.0 [facility] Comment on above: Performed By: #### C TRAMAINE #### [facility] [address] [place] [address] Dr. Reba Swain SEG # 7.06 103/ul Critically high 1.40-6.50 [facility] Comment on above: Performed By: #### C TRAMAINE #### [facility] [address] [address] [address] Reba Swain SEG % 85.0 % Critically high 43.0-75.0 [facility] Comment on above: Performed By: #### C TRAMAINE #### [facility] [address] [address] [address] Reba Swain WBC 8.3 103/ul Normal 4.0-11.0 [facility] Comment on above: Performed By: #### C TRAMAINE #### [facility] [address] [address] [address] HEAD WO CONon 12-21-2021 CT HEAD WO CON HEAD CT WITHOUT CONTRAST, 12/21/2021 6:23 PM EDT: COMPARISON: CT scan of the head, 09/10/2017 CLINICAL HISTORY: HEADACHE acute for a week and not getting better. History of hypertension. TECHNIQUE: 3 mm axial images performed through the head without contrast. 3 mm sagittal and coronal MPR reconstructions performed. Dose reduction techniques were achieved by using automated exposure control and/or adjustment of mA and/or kV according to patient size and/or use of iterative reconstruction technique. FINDINGS: No acute hemorrhage, mass effect, or midline shift. The ventricles are normal in size, shape, and position. Visualized paranasal sinuses, mastoid air cells and bony structures are unremarkable. IMPRESSION: No acute intracranial abnormality identified. Electronically authenticated by: Joe SO Date: 2021-12-21 19:59 Normal [facility] ER URINE PROFILEon 2 Bilirubin Ql (U) Negative Normal NEGATIVE [facility] Comment on above: Performed By: #### ESTEPHANIA HUTCHISON #### [facility] [address] [place] [address] Dr. Reba Swain Clarity (U) CLEAR Normal CLEAR [facility] Comment on above: Performed By: #### ESTEPHANIA HUTCHISON #### [facility] [address] [id number] [address] Reba Swain Color (U) YELLOW Normal YELLOW [facility] Comment on above: Performed By: #### Amy CONTRERAS UMICRO #### [facility] [address] [address] [address] Reba CHAUDHRY A micrscopic examina tion will be performed if indicated. Normal [facility] Comment on above: Performed By: #### Amy CONTRERAS UMICRO #### [facility] [address] [address] [address] Reba Swain Glucose Ql (U) Negative Normal NEGATIVE [facility] Comment on above: Performed By: #### Amy CONTRERAS UMICRO #### [facility] [address] [place] [address] Dr. Reba Swain Hemoglobin Ql (U) Negative Normal NEGATIVE [facility] Comment on above: Performed By: #### Amy CONTRERAS UMICRO #### [facility] [address] [place] [address] Dr. Reba Swain Ketones Ql (U) Negative Normal NEGATIVE [facility] Comment on above: Performed By: #### Amy CONTRERAS UMICRO #### [facility] [address] [place] [address] Dr. Reba Swain LEUKOCYTES Negative Normal NEGATIVE [facility] Comment on above: Performed By: #### Amy CONTRERAS UMICRO #### [facility] [address] [place] [address] Dr. Reba Swain Nitrite Ql (U) Negative Normal NEGATIVE [facility] Comment on above: Performed By: #### Amy CONTRERAS UMICRO #### [facility] [address] [place] [address] Dr. Reba Swain pH (U) 7.0 [pH] Normal 5-9 [facility] Comment on above: Performed By: #### Amy CONTRERAS UMICRO #### [facility] [address] [place] [address] Dr. Reba Swain Protein (U) [Mass/Vol] 100 mg/dL Abnormal NEGATIVE/ TRACE [facility] Comment on above: Performed By: #### Amy CONTRERAS UMICRO #### [facility] [address] [place] [address] Dr. Reba Swain SPEC GRAVITY 1.025 Normal 1.005-<=1.025 [facility] Comment on above: Performed By: #### ESTEPHANIA HUTCHISON #### [facility] [address] [place] [address] Dr. Reba Swain UR MICRO IND INDICATED Normal [facility] Comment on above: Performed By: #### ESTEPHANIA HUTCHISON #### [facility] [address] [place] [address] Dr. Reba Swain Urobilinogen Qn (U) 0.2 {Tamia'U}/dL Normal 0.2 - 1. 0 [facility] Comment on above: Performed By: #### ESTEPHANIA HUTCHISON #### [facility] [address] [place] [address] Dr. Reba Swain PROF CHEM 8 (BAS METB)on Anion gap [Moles/Vol] 14.8 mmol/L Normal [facility] Comment on above: Performed By: #### B MP #### [facility] [address] [place] [address] Dr. Reba Swain Calcium [Mass/Vol] 8.5 mg/dL Normal 8.5-10.1 [facility] Comment on above: Performed By: #### B MP #### [facility] [address] [place] [address] Dr. Reba Swain Chloride [Moles/Vol] 100 mmol/L Normal 98-107 [facility] Comment on above: Performed By: #### B MP #### [facility] [address] [place] [address] Dr. Reba Swain CO2 [Moles/Vol] 23.7 mmol/L Normal 21.0-32.0 [facility] Comment on above: Performed By: #### B MP #### [facility] [address] [place] [address] Dr. Reba Swain Creatinine [Mass/Vol] 0.79 mg/dL Normal 0.55-1.02 [facility] Comment on above: Performed By: #### B MP #### [facility] [address] [address] [address] Reba Swain EGFR-AF WELSH >60 Normal >=60 [facility] Comment on above: Performed By: #### B MP #### [facility] [address] [address] [address] Reba Swain EGFR-NON AF WELSH >60 Normal >=60 [facility] Comment on above: Performed By: #### B MP #### [facility] [address] [address] [address] Reba Swain Glucose [Mass/Vol] 107 mg/dL Critically high 74-106 T [facility] Comment on above: Performed By: #### B MP #### [facility] [address] [address] [address] Reba Swain Potassium [Moles/Vol] 3.5 mmol/L Normal 3.5-5.1 [facility] Comment on above: Performed By: #### B MP #### [facility] [address] [address] [address] Reba Swain Sodium [Moles/Vol] 135 mmol/L Critically low 136-145 Th [place] Comment on above: Performed By: #### B MP #### [facility] [address] [address] [address] Reba Swain Urea nitrogen [Mass/Vol] 9.0 mg/dL Normal 7.0-18.0 [facility] Comment on above: Performed By: #### B MP #### [facility] [address] [address] [address] Reba Swain Urea nitrogen/Creatinine [Mass ratio] 11.4 mg/mg Normal [facility] Comment on above: Performed By: #### B MP #### [facility] [address] [place] [address] Dr. Reba Swain TROPONIN, HIGH SENSITIVITYon 12-21-2021 HSTROP 4.3 pg/mL Normal 4.0-51.3 [facility] Comment on above: Result Comment: CUT- OFF POINTS HAVE BEEN ESTABLISHED BASED ON THE FOURTH UNIVERSAL DEFINITIONS OF MYOCARDIAL INFARCTION. THE UPPER REFERENCE LIMIT (URL) OF TROPONIN, DEFINED THE 99TH PERCENTILE OF cTnI DISTRIBUTION IN A REFERENCE POPULATION, HAS BEEN CONFIRMED THE DECISION THRESHOLD FOR NH DIAGNOSIS. Performed By: #### H STROPN #### [facility] [address] [place] [address] Dr. Reba Swain URINE MICROSCOPIC ONLYon BACTERIA SMALL Abnormal NONE SEEN [facility] Comment on above: Performed By: #### E RUR UMICRO #### [facility] [address] [place] [address] Dr. Reba Swain Bacteria identified Cx Nom (U) INDICATED Normal [facility] Comment on above: Performed By: #### E RUR UMICRO #### [facility] [address] [place] [address] Dr. Reba Swain CAST SEEN Abnormal NONE SEEN [facility] Comment on above: Performed By: #### E DIANE UMICRO #### [facility] [address] [place] [address] Dr. Reba Swain Crystals LM Nom (Urine sed) NONE SEEN Normal NONE SEEN [facility] Comment on above: Performed By: #### E RUR UMICRO #### [facility] [address] [place] [address] Dr. Reba Swain Epithelial cells LM Ql (Urine sed) FEW Abnormal NONE SEEN /RARE [facility] Comment on above: Performed By: #### E DIANE UMICRO #### [facility] [address] [place] [address] Dr. Reba Swain MUCOUS TRACE Abnormal NONE SEEN [facility] Comment on above: Performed By: #### E RUR, UMICRO #### [facility] [address] [place] [address] Dr. Reba Swain RBC 0-2 Normal 0-2 [facility] Comment on above: Performed By: #### E RUR, UMICRO #### [facility] [address] [place] [address] Dr. Reba Swain WBC 2-5 Abnormal NONE SEEN [facility] Comment on above: Performed By: #### E RUR, UMICRO #### [facility] [address] [address] [address] Reba Swain XR lumbar spine min 4V*on XR lumbar spine min 4V* [facility] [place] [address] [place] [id number] XRay Report Signed Patient: Silver Andujar MR#: [id number] : 1985 Acct:[id number] Age/Sex: 35 / F ADM Date: 01/14/21 Loc: [place] Room: Type: [facility] CLI Attending Dr: Madonna Torrez NP Ordering Provider: Madonna Torrez NP Date of Service: 01/14/21 XR/XR lumbar spine min 4V*: Acute bilateral low back pain with left-sided sciatica Copies to: Madonna Torrez NP Lumbar spine 01/14/2021. CLINICAL DATA: Low back pain after lifting injury. FINDINGS: 6 views of the lumbar spine were obtained and are compared with a prior study 09/23/2016. Vertebral alignment is normal. There is mild disc space narrowing at L3-L4 and L4-L5. Mild discovertebral degenerative changes are also noted at L3-L4. There is early facet arthritis in the lower lumbar spine. No acute vertebral fracture is identified. No spondylolysis is seen on the right or left. The sacroiliac joints are intact. XR/XR lumbar spine min 4V* IMPRESSION: Mild disc space narrowing and degenerative changes. No acute bony abnormality. Impression dictated by: Henrry Sweeney Jr., M.D.01/14/2021 6:46 PM Dictation Location: [place] [address] Transcribed By: [facility] 01/14/211845 Dictated By: Henrry Sweeney Jr, MD 01/14/211840 Signed By: 01/14/211845 Normal [facility] [id number] 02-16-2020 SARS-CoV-2 Not Detected Normal Not Detected [facility] Comment on above: Result Comment: (NOT E) Testing was performed using the Aptima SARS-CoV-2 assay. This test was developed and its performance characteristics determined by [employer]. This test has not been FDA cleared or approved. This test has been authorized by FDA under an Emergency Use Authorization (EUA). This test is only authorized for the duration of time the declaration that circumstances exist justifying the authorization of the emergency use of in vitro diagnostic tests for detection of SARS-CoV-2 virus and/or diagnosis of COVID-19 infection under section 564(b)(1) of the Act, 21 U.S.C. 360bbb-3(b)(1), unless the authorization is terminated or revoked sooner. When diagnostic testing is negative, the possibility of a false negative result should be considered in the context of a patient's recent exposures and the presence of clinical signs and symptoms consistent with COVID-19. An individual without symptoms of COVID-19 and who is not shedding SARS-CoV-2 virus would expect to have a negative (not detected) result in this assay. Performed At: = [facility] [id number] Macy Ortega MD Ph:[phone] Performed By: #### A COV #### [facility] [address] [place] [address] Meeting Manager: Bronson Webster MD Vital Signs Date Time Vital Sign Value Performing Clinician Facility 07-15-2023 13:44-0500 Body temperature 98.01 [degF] Priscilla Albert APRN.CNP Work Phone: [facility] 07-15-2023 13:44-0500 Diastolic blood pressure 81 mm[Hg] Priscilla Albert APRN.MOBILITY ENGINEER Work Phone: [facility] 07-15-2023 13:44-0500 Heart rate 89 /min Priscilla Albert APRN.MOBILITY ENGINEER Work Phone: [facility] 07-15-2023 13:44-0500 Systolic blood pressure 131 mm[Hg] Priscilla Albert APRN.MOBILITY ENGINEER Work Phone: [facility] 12-29-2019 05:16-0400 BMI (Body Mass Index) 37.24 kg/m2 Raheel Kaminski [facility] [place] [place] 12-29-2019 05:16-0400 Body Temperature 97.3 [degF] [facility] [place] 12-29-2019 05:16-0400 Body weight 121.11 kg Raheel [place], [place] 12-29-2019 05:16-0400 BP Diastolic 65 mm[Hg] Raheel Ruchi [place], [place] 12-29-2019 05:16-0400 BP Systolic 114 mm[Hg] Raheel Ruchi [place], [place] 12-29-2019 05:16-0400 Height 180.3 cm Raheel [place] 12-29-2019 05:16-0400 Pulse (Heart Rate) 60 /min Raheel Jackson [place], [place] 12-29-2019 05:16-0400 Pulse Oximetry 97 % Raheel Ruchi [place], [place] 12-29-2019 05:16-0400 Respiratory Rate 18 /min [facility] [place] Encounters Encounter Date Encounter Type Care Provider Facility Start: 08-01-2023 End: 08-02-2023 ambulatory Rony Daniels MD Facility:[facility] Start: 07-21-2023 End: 07-22-2023 ambulatory Laurel Parrish CATHERINE Facility:[facility] Start: 07-18-2023 End: 07-19-2023 ambulatory Rony Daniels MD Facility:[facility] Start: 07-15-2023 End: 07-15-2023 ambulatory HENRRY VARGAS Facility:[facility] Start: 07-15-2023 End: 07-15-2023 Patient encounter procedure Priscilla Albert APRN.MOBILITY ENGINEER Work Phone: [facility] Comment on above: Primary hypertension (Primary Dx) Start: 08-26-2022 End: 08-26-2022 Emergency department patient visit CARISSA Crespo [facility] Start: 06-28-2022 End: 06-28-2022 ambulatory MARIE HENRY Facility:[facility] Start: 12-21-2021 End: 12-21-2021 ambulatory MARIE HNERY Facility:[facility] Start: 12-11-2021 ambulatory MARIE HENRY Facility: [facility] Start: 09-27-2021 End: 09-27-2021 ambulatory JOSHUA BAILEY Facility:[facility] Start: 08-11-2021 End: 08-11-[address] MARJAN HAILE Facility: Start: 09-22-2020 End: 09-22-2020 Patient encounter procedure Jaz Iglesias Work Phone: [facility] Start: 08-25-2020 End: 08-25-2020 Patient encounter procedure Jean-Claude Redmond [facility] Start: 02-12-2020 End: 02-13-2020 Patient encounter procedure BESSIE MOSES [facility] Start: 02-12-2020 End: 02-12-2020 Subsequent hospital visit by physician [facility] Start: 12-29-2019 End: 12-29-2019 Emergency department patient visit RAHEEL JACKSON [facility] Start: 12-29-2019 End: 12-29-2019 Emergency department patient visit Raheel Boss Phone: [facility] ED Comment on above: Exposure to needle, initial encounter (Primary Dx) Procedures Date Procedure Procedure Detail Performing Clinician Start: [facility] CARISSA BRADFORD Start: 08-26-2022 APPLY DEAN WRAP CARISSA LIZ Start: 08-26-2022 Radiologic examinati on knee 3 views CARISSA BRADFORD Start: 08-26-2022 Dup-scan xtr veins unilateral/limited study CARISSA BRADFORD Start: 02-12-2020 COVID-19 AMBULATORY JAMES JACKSON Plan of Treatment Date Care Activity Detail Author Start: 08-17-2026 Tetanus vaccination Tetanus: Every 1 0yrs [facility] Start: 08-17-2026 Urine microalbumin profile DTaP,Tdap,Td Vaccine (2 - Td or Tdap) [facility] Start: 04-15-2023 Covid-19 Vaccine ( season) Covid-19 Vaccine ( season) [facility] Start: 04-15-2023 Influenza vaccination Influenza Vacc ine (#1) [facility] Start: 08-15-2022 Depression Assessment Depression Ass essment [facility] Start: 09-22-2020 COVID-19 Vaccine (Moderna) (#2) COVID-19 Vaccine (Moderna) (#2) [facility] Start: 09-22-2020 End: 09-22-2020 Immunization 09/22/2020 Immunization Primary Care Jaz Iglesias MD [address] [facility] [address] [place] [address] [phone] [facility] [employer] [facility] Start: 04-15-2020 Influenza vaccination M [facility] [place] Start: 04-15-2020 Influenza vaccinatio n given Sequential Influenza Vaccine (#1) [facility] Start: 2013 HPV Testing HPV Testing [facility] Start: 2004 Pap Testing Pap Testing [facility] Start: 2001 Hepatitis C antibody , confirmatory test Hepatitis C Screening [facility] Start: 2001 Hepatitis C Screening Hepatitis C Sc reening [facility] Start: 2001 HIV Screening [facility] Screening [facility] Start: 1998 HIV screening HIV Screening [facility] Start: 1995 Adolescent depressio n screening assessment Depression Screening (PHQ9) [facility] Start: 1989 Pneumococcal vaccination Pneumococcal Vaccine (1 - PCV) [facility] Start: 1986 History and physical examination, annual for health maintenance Wellness Visit [facility] Start: 1983 Creatinine measurement Creatinine mo nitoring [place], [place] Start: 1983 Hepatitis B Vaccine (1 of 3 - 3-dose series) Hepatitis B Vaccine (1 of 3 - 3-dose series) [facility] Start: 1983 Potassium monitoring Potassium monit oring [place], [place] Start: 1983 Screening for malign ant neoplasm of cervix Pap Smear [facility] Start: 1983 Tetanus vaccination Tetanus: Every 1 0yrs [facility] End: 02-12-2020 Covid-19 Ambulatory Covid-19 Ambulatory Lab Routine Once for 1 Occurrences starting 02/12/2020 until 02/12/2020 [place], [place] Comment on above: Once for 1 Occurrenc es starting 02/12/2020 until 02/12/2020 Covid-19 Ambulatory Covid-19 Amb ulatory Lab Routine 02/12/2020 7:08 AM EDT [place] Immunizations Immunization Date Immunization Notes Care Provider Fa cility 06-04-2022 influenza virus vacc ine, unspecified formulation Priscilla Albert SULEMA.MOBILITY ENGINEER Work Phone: [facility] 09-22-2020 Moderna SARS-CoV-2 Vaccination Lizbeth Mcclendon [facility] 08-25-2020 Moderna SARS-CoV-2 Vaccination Jean-Claude Redmond [facility] Payers Date Payer Category Payer Unknown [id number] 2019 Unknown 1985 Unknown [id number] [id number] 1985 Unknown [id number] 2.16.84 [id number] 1985 Unknown [id number] 2.16.84 [id number] 1985 Unknown [id number] 2.16.84 [id number] 1985 Unknown [id number] 2.16.84 [id number] 1983 Unknown [id number] 2.16.84 [id number] 1985 Unknown [id number] [id number]. [id number] 1985 Unknown [id number] [id number]. [id number] 1961 Self-pay [id number] Social History Date Type Detail Facility Start: 12-29-2019 End: 07-15-2023 Tobacco smoking status NHIS Current every day smoker [facility] Start: 12-29-2019 End: 07-15-2023 Cigarettes smoked current (pack per day) - Reported [place], [place] Start: 12-29-2019 Alcohol intake Lifetime non-d giovanny (finding) [place] Start: 12-29-2019 History SDOH Alcohol Frequency 1 [place], [place] Start: 1985 Sex Assigned At Not on file M [place], [place] Exposure to SARS-CoV -2 (event) Unable to assess [place], [place] Exposure to SARS-CoV -2 (event) Not sure [facility] History of tobacco use Cigarette Smoker C [facility] Start: 07-15-2023 Tobacco use and exposure User of smokeless tobacco [facility] Start: 07-15-2023 Tobacco use panel [facility] Progress note 07-15-2023 Note Date & Type Note Facility 07-15-2023 Note HNO ID: [id number] Author: Priscilla Albert APRN.MOBILITY ENGINEER Service: ? Author Type: Nurse Practitioner Type: Progress Notes Filed: 07/15/2023 4:34 PM Note Text: CC: Headache and high BP HPI: Silver Andujar is a 37 year old female who presents to the 8 walk in clinic for the above chief complaint. Lives over [place] hr away, drove to work this AM and realized she forgot to take BP meds 0900 headache started - BP on floor 144/80, HR 89 Usual SBP 110s-120s, HR 50s After headache, then noted blurry vision, feels like objects are not in focus At 1000 took Tylenol 1000mg - no relief Coughing can make pain worse Mild shortness of breath, notices this when HR is higher than her normal Mild lightheadedness/dizziness with position changes, not worse than her usual States she rarely misses taking her BP meds 2018 - dx with HTN Daily meds - 25mg HCTZ, 25mg Metoprolol Succinate, 20mg Lisinopril Denies changes in strength, chest pain, palpitations, numbness/tingling Past Medical History: No past medical history on file. There is no problem list on file for this patient. Past Surgical History: No past surgical history on file. Medications: No current outpatient medications on file prior to visit. No current facility-administered medications on file prior to visit. PE: BP 131/81 Pulse 89 Temp 36.7 ?C (98 ?F) (Oral) General: Alert, calm, cooperative, pleasant. Speech clear and coherent Eyes: Conjunctiva clear without injection or drainage Ears: External ear normal. Heart: Regular rate and rhythm. No murmurs, gallops, or rubs Lungs: Breathing unlabored. Clear to auscultation bilaterally without wheezes, rales or rhonchi Neuro: CN III-XII grossly intact. PERRL, EOMI. motor 5+ and equal bilateral upper/lower extremity. Gait steady. Assessment and Plan 1. Primary hypertension - ICD9: 401.9, ICD10: I10 - Symptoms likely related to missing medications this morning - Continue current medications, will take as soon as get home - Will have her spouse come pick her up instead of driving home - Recommend home blood pressure monitoring - Discussed red flag symptoms and when to seek emergency care Gayatri Tony, MSN, RN- WHEEL INSPECTOR Student Gayatri Tony, student nurse practitioner, and myself have interviewed the patient. I re-performed the HPI and physical exam. Assessment and plan was developed together. I spent a total of 30 minutes on the date of the service which included preparing to see the patient, [id number] patient care, completing clinical documentation, obtaining and/or reviewing separately obtained history, performing a medically appropriate examination, counseling and educating the patient/family/caregiver, and ordering medications, tests, or procedures. Priscilla Albert APRN.[facility] History of Present illness Narrative 07-15-2023 Priscilla Albert APRN.[facility] - 07/15/2023 1:49 PM EST Note Date & Type Note Facility 07-15-2023 History of Presen t illness Narrative CC: Headache and high BP HPI: Silver Andujar is a 37 year old female who presents to the 8 walk in clinic for the above chief complaint. Lives over [place] away, drove to work this AM and realized she forgot to take BP meds 0900 headache started - BP on floor 144/80, HR 89 Usual SBP 110s-120s, HR 50s After headache, then noted blurry vision, feels like objects are not in focus At 1000 took Tylenol 1000mg - no relief Coughing can make pain worse Mild shortness of breath, notices this when HR is higher than her normal Mild lightheadedness/dizziness with position changes, not worse than her usual States she rarely misses taking her BP meds 2018 - dx with HTN Daily meds - 25mg HCTZ, 25mg Metoprolol Succinate, 20mg Lisinopril Denies changes in strength, chest pain, palpitations, numbness/tingling Past Medical History: No past medical history on file. There is no problem list on file for this patient. Past Surgical History: No past surgical history on file. Medications: No current outpatient medications on file prior to visit. No current facility-administered medications on file prior to visit. PE: BP 131/81 Pulse 89 Temp 36.7 C (98 F) (Oral) General: Alert, calm, cooperative, pleasant. Speech clear and coherent Eyes: Conjunctiva clear without injection or drainage Ears: External ear normal. Heart: Regular rate and rhythm. No murmurs, gallops, or rubs Lungs: Breathing unlabored. Clear to auscultation bilaterally without wheezes, rales or rhonchi Neuro: CN III-XII grossly intact. PERRL, EOMI. motor 5+ and equal bilateral upper/lower extremity. Gait steady. Assessment and Plan 1. Primary hypertension - ICD9: 401.9, ICD10: I10 - Symptoms likely related to missing medications this morning - Continue current medications, will take as soon as get home - Will have her spouse come pick her up instead of driving home - Recommend home blood pressure monitoring - Discussed red flag symptoms and when to seek emergency care Gayatri Tony, MSN, RN-BC WHEEL INSPECTOR Student Gayatri Tony, student nurse practitioner, and myself have interviewed the patient. I re-performed the HPI and physical exam. Assessment and plan was developed together. I spent a total of 30 minutes on the date of the service which included preparing to see the patient, [id number] patient care, completing clinical documentation, obtaining and/or reviewing separately obtained history, performing a medically appropriate examination, counseling and educating the patient/family/caregiver, and ordering medications, tests, or procedures. Priscilla Albert APRN.MOBILITY ENGINEER documented in this encounter [facility] Clinical Note 09-27-2021 Note Date & Type Note Facility 09-27-2021 Note PROCEDURE: CT LSPINE WO CON COMPARISON: None. HISTORY: DORSALGIA, UNSPECIFIED TECHNIQUE: Axial, Coronal, and Sagittal CT images obtained without IV contrast. Dose reduction techniques were achieved by using automated exposure control and/or adjustment of mA and/or kV according to patient size and/or use of iterative reconstruction technique. FINDINGS: PARASPINAL AREA: Normal with no visible mass. DISCS: L4-L5: Moderate disc space narrowing. Suspected posterior disc herniation of the protrusion type best seen on sagittal image #19, axial image 62. extends posteriorly up to 8.5 mm on axial image. No definite foraminal stenosis. L5-S1: Posterior central broad-based disc herniation the protrusion type best seen on axial image 71 extending posteriorly 4 mm. BONES: Normal alignment with no acute fracture or spondylolisthesis. Mild degenerative spondylosis OTHER: Negative. IMPRESSION: Likely disc herniations at L4-L5 and L5-S1 as detailed above. MRI recommended for further evaluation Electronically authenticated by: RICARDO WEBB Date: 2021-09-27 13:13 [facility] Evaluation note Note Date & Type Note Facility Evaluation note Diagnosis Primary hypertension- Primary Unspecified essential hypertension documented in this encounter [facility] Discharge Instructions * Instructions* Crystal Little MD - 12/29/2019 Thank you for visiting [facility] Emergency Department. You need to call No primary care provider on file. to make an appointment as directed for follow up. Should you have any questions regarding your care or further treatment, please call [facility] Emergency Department at [phone]. Take any medications as prescribed, if given any, otherwise for pain Use ibuprofen or Tylenol (unless prescribed medications that have Tylenol in it). You can take over the counter Ibuprofen (advil) tablets (4 tablets every 8 hours or 3 tablets every 6 hours or 2 tablets every 4 hours) If given narcotics during this ED visit, please do not drive or operate heavy machinery for at least 4-6 hours. PLEASE RETURN TO THE ED IMMEDIATELY for worsening symptoms, or if you develop any concerning symptoms such as: high fever not relieved by tylenol and/or motrin, chills, shortness of breath, chest pain, persistent nausea and/or vomiting, numbness, weakness or tingling in the arms or legs or change in color of the extremities, changes in mental status, persistent headache, blurry vision, inability to urinate, unable to follow up with your physician, or other any other Care or concern. documented in this encounter Assessments Diagnosis Exposure to needle, initial encounter Advance Directives No Advanced Directives Records FoundDocuments on File Type Date Recorded Patient Janitor Supervisor Expl anation Advance Directives and Living Will Power of Apparatus Lineman Documents on File Type Date Recorded Patient Janitor Supervisor Expl anation Advance Directives and Living Will Summary Purpose Family History No Family History Records FoundNo Family History Records FoundNo Family History Records FoundNo Family History Records FoundNo Family History Records FoundNo Family History Records FoundNo Family History Records Found Additional Source Comments Reason for Visit (unrecogniz ed section and content) Reason Comments Body Fluid Exposure Reason Comments Headache Pt is here for a hea dache and high blood pressure that started a couple days ago INFORMATION SOURCE (unrecogn ized section and content) DATE CREATED AUTHOR 03/06/[address] [facility] DATE CREATED AUTHOR AUTHOR'S ORGANIZ ATION 01/30/2021 [facility] DATE CREATED AUTHOR AUTHOR'S ORGANIZ ATION 06/30/2022 [facility] DATE CREATED AUTHOR AUTHOR'S ORGANIZ ATION 08/26/2022 [facility] DATE CREATED AUTHOR AUTHOR'S ORGANIZ ATION 07/18/2023 [facility] DATE CREATED AUTHOR AUTHOR'S ORGANIZ ATION 07/23/2023 [facility] DATE CREATED AUTHOR AUTHOR'S ORGANIZ ATION 08/05/2023 [facility] Source Comments (unrecognize d section and content) In the event this informatio n is protected by the Federal Confidentiality of Alcohol and Drug Abuse Patient Records regulations: The Federal rules restrict any use of the information to criminally investigate or prosecute any alcohol or drug abuse patient.[facility] Care Teams (unrecognized sec tion and content) Candle Making Supervisor Relationship Specialty Start Date End Date Henrry Vargas DO PCP - General Family Medicine 10/21/16 FOR RECORDS PERTAINING TO PATIENTS WHO ARE OR HAVE BEEN ENROLLED IN A CHEMICAL DEPENDENCY/SUBSTANCEABUSE PROGRAM, SOME INFORMATION MAY BE OMITTED. This clinical summary was aggregated from multiple sources. Caution should be exercised in using it in the provision of clinical care. This summary normalizes information from multiple sources, and as a consequence, information in this document may materially change the coding, format and clinical context of patient data. In addition, data may be omitted in some cases. CLINICAL DECISIONS SHOULD BE BASED ON THE PRIMARY CLINICAL RECORDS. [facility]. provides no warranty or guarantee of the accuracy or completeness of information in this document.
[2023-08-22 09:04] VITALS: BP 120/76; PULSE 69; RESP 16; TEMP 36.3; O2SAT 100
[2023-08-22 09:33] VITALS: BP 118/69; PULSE 68; RESP 18; O2SAT 97
[2023-08-22] MEDS: 0.9 % SODIUM CHLORIDE 10 ML 100 ML INJ (09:34)
[2023-08-22] MEDS: BUPIVACAINE HCL 0.25% PF 25 MG/10 ML VIAL INJ (09:34)
[2023-08-22 09:37] VITALS: BP 125/76; PULSE 70; RESP 18; O2SAT 96
--- NOTE | 2023-08-22 09:38 | W.PM.PROCNOT ---
Date of procedure: 08/22/23 Pre-op diagnosis: Lumbar stenosis with neurogenic claudication Post-op diagnosis: same as pre-op Procedure: Procedure: Bilateral L5-S1 transforaminal epidural steroid injection Medications: Bupivacaine 0.25% 2cc, kenalog 80mg The patient was seen and examined in the preoperative holding area.? Informed consent was obtained and placed on the chart.? Patient was brought to the medical procedure unit and placed in the prone position where a timeout was completed verifying the correct patient, procedure site, position, and planned special equipment using sterile aseptic technique.? Under direct fluoroscopic visualization a 25-gauge Quincke tipped spinal needle was advanced at level left L5-S1 to the designated neural foramen where contrast dye was injected to show adequate spread.? There was no evidence of vascular or adverse uptake.? Epidural spread was appreciated.? The above-mentioned injectate was then placed in a 1.5 mL aliquot preceded by negative aspiration.? The needle was removed. The same procedure, at the same level, was completed on the opposite side. ? Patient was taken to the postprocedural recovery area and monitored for an appropriate length of time before found suitable for discharge in the accompaniment of a responsible adult. Anesthesia: Local Surgeon: Rony Daniels Pathology: none sent Condition: stable Disposition: no change
[2023-08-22] MEDS: IOHEXOL 240 MG/ML - 10 ML VIAL INJ (09:44)
[2023-08-22] MEDS: TRIAMCINOLONE ACETONIDE 40 MG/ML VIAL INJ (09:44)
[2023-08-22] MEDS: LIDOCAINE HCL 2% PF 100 MG/5 ML VIAL INJ (09:44)
== END 2023-08-22 09:43 | disposition home or self-care (01) ==
LOC: SURGOUT 08:56
PROVIDERS: PCP Nurse Practitioner Family; Visit Provider Anesthesiology
DX: M48.062 Spinal stenosis, lumbar region with neurogenic claudication (principal)
CPT/HCPCS: 64483; J0665; J3301; Q9966

== ENCOUNTER 2023-09-01 13:07 | Outpatient (OUT) | payer BC, SELFPAY ==
--- OUTSIDE RECORDS SUMMARY | 2023-09-01 13:10 | XMS_ITS | CCD ---
Author Name Unknown Address [address] [place] [address] Organization [facility] Care Team Providers Care Chassis Inspector Name Role Phone Unavailable Primary Care Provider [...] / oxyCODONE Drug Allergy 04-21-20 18 Itching [facility] [place] [place] (3 sources) busPIRone Drug Allergy 04-21-20 18 Other: See Comments [place], [place] (3 sources) Sulfamethoxazole / Trimethoprim Drug Allergy 04-21-20 18 Anaphylaxis [place], [place] (2 sources) Acetaminophen / oxyCODONE; 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: [Percocet] Drug Allergy 08-15-19 15 [facility] Repository (2 sources) Adhesive agent Drug allergy (disorder) 11-28-19 15 [facility] Repository (3 sources) busPIRone; 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: [BuSpar] Drug Allergy 08-07-20 16 [facility] Repository (2 sources) Latex; 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: [Latex] Drug allergy (disorder) [facility] Repository (1 source) Sulfamethoxazole / Trimethoprim Drug Allergy [facility] Repository (1 source) venlafaxine Drug Allergy [facility] Rep[facility] (1 source) Adhesive bandage; 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: [Adhesive Bandage] Propensity to adverse reactions (disorder) [facility] Repository (1 source) Sulfamethoxazole / Trimethoprim; 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: [Bactrim] Drug Allergy [facility] Repository Medications Current Medications Medication Drug Class(es) [...] 06-30-2022 Chronic Other aftercare (1 source) Other intermediate (current) drug therapy; 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: [OTH BATCH OPERATOR CURRENT DRUG THERAPY] Onset: 06-30-2022 Episodic [...] Interpretation Reference Range Facility [facility] 07-21-2023 Consent [id number] [facility] In office Testingon 07-21-20 23 In office Testing [id number] FF [facility] Registrationon 07-21-2023 Registration [id number] F [facility] CNOVon 07-15-2023 CNOV Office Visit (WALKMN ) -------- SILVER ANDUJAR ([id number]) 1985 F Date Time Provider Department 07/15/23 1:45 PM PRISCILLA ALBERT During your visit today, we recorded the following information about you: Temperature Pulse Blood pressure 98 degrees 89/minute 131/81 Priscilla Albert APRN.[facility] 07/15/2023 4:34 PM Signed CC: Headache and high BP HPI: Silver Andujar is a 37 year old female who presents to the [facility] walk in clinic for the above chief [...] seek emergency care Gayatri Tony, MSN, RN-BC POWDER ROOM ATTENDANT Student Gayatri Tony, student nurse practitioner, and myself have interviewed the patient. I re-performed the HPI and physical exam. Assessment and plan was developed together. I spent a total of 30 minutes on the date of the service which included preparing to see the patient, jiky-pl-eexp patient care, completing clinical documentation, obtaining and/or reviewing separately obtained history, performing a medically appropriate examination, counseling and educating the patient/family/caregiver , and ordering medications, tests, or procedures. Priscilla Albert APRN.FOLDER STITCHER OPERATOR Referring Provider: SELF [[id number]] Allergies As of Date: 07/15/2023 Noted Allergy Reaction BUSPIRONE 04/21/2018 14 - Other: See Comments OXYCODONE-ACETAMINOPHEN 04/21/2018 9 - Itching SULFAMETHOXAZOLE-TRIMETH OPRIM 04/21/2018 10 - Anaphylaxis Date Reviewed: 07/15/2023 Reviewed by: Priscilla Ablert APRN.FOLDER STITCHER OPERATOR - Fully Assessed Reason for Visit: Headache [...] Status:Closed by PRISCILLA ALBERT on 07/15/23 Normal [facility] US DUP LOWER EXTREMITY RIGHT VENon 08-26-2022 [...] Henrry Sweeney MD 08/26/22 Final result Normal [facility] Comment on above: Order Comment: Reaso n [...] by: Henrry Sweeney MD Signed by: Henrry Seweney MD 08/26/22 Final result Normal [facility] Comment on above: Order Comment: Reaso n [...] RICARDO WEBB Date: 2022-06-28 14:32 Normal [facility] CULTURE URINEon 12-22-2021 CULTURE URINE Culture Observations : MODERATE GROWTH OF MIXED SKIN CHARLY. NO POTENTIAL PATHOGENS SEEN. Normal [facility] Comment on above: Performed By: #### U RCX #### [facility] [address] [address] [address] Reba Swain CBC W MANUAL DIFFon 12-22-19 22 ATYPICAL LYMPH # Normal [facility] Comment on above: Performed By: #### C BCMAN #### [facility] [address] [address] [address] Reba Swain ATYPICAL LYMPH % Normal [facility] Comment on above: Performed By: #### C BCMAN #### [facility] [address] [address] [address] Reba Swain BAND # Normal 0.0-0.3 [facility] Comment on above: Performed By: #### C BCMAN #### [facility] [address] [place] [address] Dr. Reba Swain BAND % Normal 0-5 [facility] Comment on above: Performed By: #### C BCMAN #### [facility] [address] [place] [address] Dr. Reba Swain BASOM # 0.08 103/ul Normal 0.00-0.10 [facility] Comment on above: Performed By: #### C BCMAN #### [facility] [address] [place] [address] Dr. Reba Swain BASOM % 1.0 % Normal 0.2-2.0 [facility] Comment on above: Performed By: #### C BCMAN #### [facility] [address] [place] [address] Dr. Reba Swain BLAST # Normal [facility] Comment on above: Performed By: #### C BCNIKI #### [facility] [address] [place] [address] Dr. Reba Swain BLAST % Normal [facility] Comment on above: Performed By: #### C BCNIKI #### [facility] [address] [place] [address] Dr. Reba Swain CORRECTED WBC Normal 4.0-11.0 [facility] Comment on above: Performed By: #### C BCNIKI #### [facility] [address] [place] [address] Dr. Reba Swain EOS # 0.08 103/ul Normal 0.00-0.70 [facility] Comment on above: Performed By: #### C BCMAN #### [facility] [address] [place] [address] Dr. Reba Swain EOS% 1.0 % Normal 0.9-7.0 [facility] Comment on above: Performed By: #### C BCNIKI #### [facility] [address] [place] [address] Dr. Reba Swain HCT 42.3 % Normal 36.0-48.0 [facility] Comment on above: Performed By: #### C TRAMAINE #### [facility] [address] [address] [address] Reba Swain HGB 14.0 g/dl Normal 12.0-16.0 [facility] Comment on above: Performed By: #### C TRAMAINE #### [facility] [address] [address] [address] Reba Swain LYMPHM # 0.83 103/ul Critically low 1.20-3.80 [facility] Comment on above: Performed By: #### C TRAMAINE #### [facility] [address] [address] [address] Reba Swain LYMPHM% 10.0 % Critically low 20.5-60.0 [facility] Comment on above: Performed By: #### C TRAMAINE #### [facility] [address] [place] [address] Dr. Reba Swain MCH 30.6 pg Normal 26.7-34.0 [facility] Comment on above: Performed By: #### C TRAMAINE #### [facility] [address] [place] [address] Dr. Reba Swain MCHC 33.1 g/dl Normal 29.9-35.2 [facility] Comment on above: Performed By: #### C TRAMAINE #### [facility] [address] [address] [address] Reba Swain MCV 92.4 fL Normal 81.0-99.0 [facility] Comment on above: Performed By: #### C TRAAMINE #### [facility] [address] [place] [address] Dr. Reba Swain METAMYELOCYTE # Normal [facility] Comment on above: Performed By: #### C TRAMAINE #### [facility] [address] [place] [address] Dr. Reba Swain METAMYELOCYTE % Normal [facility] Comment on above: Performed By: #### C TRAMAINE #### [facility] [address] [address] [address] Reba Swain MONOM# 0.25 103/ul Critically low 0.30-0.80 [facility] Comment on above: Performed By: #### C TRAMAINE #### [facility] [address] [place] [address] Dr. Reba Swain MONOM% 3.0 % Normal 1.7-12.0 [facility] Comment on above: Performed By: #### C TRAMAINE #### [facility] [address] [place] [address] Dr. Reba Swain MPV 10.3 fL Normal 9.5-13.5 [facility] Comment on above: Performed By: #### C BCMAN #### [facility] [address] [place] [address] Dr. Reba Swain MYELOCYTE # Normal [facility] Comment on above: Performed By: #### C TRAMAINE #### [facility] [address] [place] [address] Dr. Reba Swain MYELOCYTE % Normal [facility] Comment on above: Performed By: #### C TRAMAINE #### [facility] [address] [place] [address] Dr. Reba Swain NRBC Normal [facility] Comment on above: Performed By: #### C TRAMAINE #### [facility] [address] [place] [address] Dr. Reba Swain PLT 190 103/ul Normal 150-450 [facility] Comment on above: Performed By: #### C TRAMAINE #### [facility] [address] [place] [address] Dr. Reba Swain RBC 4.58 106/ul Normal 4.20-5.40 [facility] Comment on above: Performed By: #### C TRAMAINE #### [facility] [address] [place] [address] Dr. Reba Swain RDW 13.3 % Normal 11.0-15.0 [facility] Comment on above: Performed By: #### C TRAMAINE #### [facility] [address] [place] [address] Dr. Reba Swain SEG # 7.06 103/ul Critically high 1.40-6.50 [facility] Comment on above: Performed By: #### C TRAMAINE #### [facility] [address] [address] [address] Reba Swain SEG % 85.0 % Critically high 43.0-75.0 [facility] Comment on above: Performed By: #### C TRAMAINE #### [facility] [address] [address] [address] Reba Swain WBC 8.3 103/ul Normal 4.0-11.0 [facility] Comment on above: Performed By: #### C TRAMAINE #### [facility] [address] [address] [address] HEAD WO CONon [...] Joe SO Date: 2021-12-21 19:59 Normal [facility] ER URINE PROFILEon 2 Bilirubin Ql (U) Negative Normal NEGATIVE [facility] Comment on above: Performed By: #### ESTEPHANIA HUTCHISON #### [facility] [address] [place] [address] Dr. Reba Swain Clarity (U) CLEAR Normal CLEAR [facility] Comment on above: Performed By: #### ESTEPHANIA HUTCHISON #### [facility] [id number] Reba Swain Color (U) YELLOW Normal YELLOW [facility] Comment on above: Performed By: #### Amy CONTRERAS UMICRO #### [facility] [address] [address] [address] Reba CHAUDHRY A micrscopic examina tion will be performed if indicated. Normal [facility] Comment on above: Performed By: #### Amy CONTRERAS UMICRO #### [facility] [address] [address] [address] Reba Swain Glucose Ql (U) Negative Normal NEGATIVE [facility] Comment on above: Performed By: #### Amy CONTRERAS UMICRO #### [facility] [address] [place] [address] Dr. Reba Swain Hemoglobin Ql (U) Negative Normal NEGATIVE [facility] Comment on above: Performed By: #### Amy CONTRERAS UMICRO #### [facility] [address] [place] [address] Dr. Reba Swain Ketones Ql (U) Negative Normal NEGATIVE [facility] Comment on above: Performed By: #### Amy CONTRERAS UMICRO #### [facility] [address] [place] [address] Dr. Reba Swain LEUKOCYTES Negative Normal NEGATIVE [facility] Comment on above: Performed By: #### Amy CONTRERAS UMICRO #### [facility] [address] [place] [address] Dr. Reba Swain Nitrite Ql (U) Negative Normal NEGATIVE [facility] Comment on above: Performed By: #### Amy CONTRERAS UMICRO #### [facility] [address] [place] [address] Dr. Reba Swain pH (U) 7.0 [pH] Normal 5-9 [facility] Comment on above: Performed By: #### Amy CONTRERAS UMICRO #### [facility] [address] [place] [address] Dr. Reba Swain Protein (U) [Mass/Vol] 100 mg/dL Abnormal NEGATIVE/ TRACE [facility] Comment on above: Performed By: #### Amy CONTRERAS UMICRO #### [facility] [address] [place] [address] Dr. Reba Swain SPEC GRAVITY 1.025 Normal 1.005-<=1.025 [facility] Comment on above: Performed By: #### ESTEPHANIA HUTCHISON #### [facility] [address] [place] [address] Dr. Reba Swain UR MICRO IND INDICATED Normal [facility] Comment on above: Performed By: #### ESTEPHANIA HUTCHISON #### [facility] [address] [place] [address] Dr. Reba Swain Urobilinogen Qn (U) 0.2 {Tamia'U}/dL Normal 0.2 - 1. 0 [facility] Comment on above: Performed By: #### ESTEPHANIA HUTCHISON #### [facility] [address] [place] [address] Dr. Reba Swain PROF CHEM 8 (BAS METB)on Anion gap [Moles/Vol] 14.8 mmol/L Normal [facility] Comment on above: Performed By: #### B MP #### [facility] [address] [place] [address] Dr. Reba Swain Calcium [Mass/Vol] 8.5 mg/dL Normal 8.5-10.1 [facility] Comment on above: Performed By: #### B MP #### [facility] [address] [place] [address] Dr. Reba Swain Chloride [Moles/Vol] 100 mmol/L Normal 98-107 [facility] Comment on above: Performed By: #### B MP #### [facility] [address] [place] [address] Dr. Reba Swain CO2 [Moles/Vol] 23.7 mmol/L Normal 21.0-32.0 [facility] Comment on above: Performed By: #### B MP #### [facility] [address] [place] [address] Dr. Reba Swain Creatinine [Mass/Vol] 0.79 mg/dL Normal 0.55-1.02 [facility] Comment on above: Performed By: #### B MP #### [facility] [address] [address] [address] Reba Swain EGFR-AF UGANDAN >60 Normal >=60 [facility] Comment on above: Performed By: #### B MP #### [facility] [address] [address] [address] Reba Swain EGFR-NON AF UGANDAN >60 Normal >=60 [facility] Comment on above: Performed By: #### B MP #### [facility] [address] [address] [address] Reba Swain Glucose [Mass/Vol] 107 mg/dL Critically high 74-106 [facility] Comment on above: Performed By: #### B MP #### [facility] [address] [address] [address] Reba Swain Potassium [Moles/Vol] 3.5 mmol/L Normal 3.5-5.1 [facility] Comment on above: Performed By: #### B MP #### [facility] [address] [address] [address] Reba Swain Sodium [Moles/Vol] 135 mmol/L Critically low 136-145 [facility] Comment on above: Performed By: #### B MP #### [facility] [address] [address] [address] Reba Swain Urea nitrogen [Mass/Vol] 9.0 mg/dL Normal 7.0-18.0 [facility] Comment on above: Performed By: #### B MP #### [facility] [address] [address] [address] Reba Swain Urea nitrogen/Creatinine [Mass ratio] 11.4 mg/mg Normal [facility] Comment on above: Performed By: #### B MP #### [facility] [address] [place] [address] Dr. Reba Swain TROPONIN, HIGH SENSITIVITYon 12-21-2021 HSTROP 4.3 pg/mL Normal 4.0-51.3 [facility] Comment on above: Result Comment: CUT- OFF POINTS HAVE BEEN ESTABLISHED BASED ON THE FOURTH UNIVERSAL DEFINITIONS OF MYOCARDIAL INFARCTION. THE UPPER REFERENCE LIMIT (URL) OF TROPONIN, DEFINED THE 99TH PERCENTILE OF cTnI DISTRIBUTION IN A REFERENCE POPULATION, HAS BEEN CONFIRMED THE DECISION THRESHOLD FOR SC DIAGNOSIS. Performed By: #### H STROPN #### [facility] [address] [place] [address] Dr. Reba Swain URINE MICROSCOPIC ONLYon BACTERIA SMALL Abnormal NONE SEEN [facility] Comment on above: Performed By: #### E RUR UMICRO #### [facility] [address] [place] [address] Dr. Reba Swain Bacteria identified Cx Nom (U) INDICATED Normal [facility] Comment on above: Performed By: #### E RUR UMICRO #### [facility] [address] [place] [address] Dr. Reba Swain CAST SEEN Abnormal NONE SEEN [facility] Comment on above: Performed By: #### E DIANE UMICRO #### [facility] [address] [place] [address] Dr. Reba Swain Crystals LM Nom (Urine sed) NONE SEEN Normal NONE SEEN [facility] Comment on above: Performed By: #### E RUR UMICRO #### [facility] [address] [place] [address] Dr. Reba Swain Epithelial cells LM Ql (Urine sed) FEW Abnormal NONE SEEN /RARE [facility] Comment on above: Performed By: #### E DIANE UMICRO #### [facility] [address] [place] [address] Dr. Reba Swain MUCOUS TRACE Abnormal NONE SEEN [facility] Comment on above: Performed By: #### E RUR, UMICRO #### [facility] [address] [place] [address] Dr. Reba Swain RBC 0-2 Normal 0-2 [facility] Comment on above: Performed By: #### E RUR, UMICRO #### [facility] [address] [place] [address] Dr. Reba Swain WBC 2-5 Abnormal NONE SEEN [facility] Comment on above: Performed By: #### E RUR, UMICRO #### [facility] [address] [address] [address] Reba Swain XR lumbar spine min 4V*on XR lumbar spine min 4V* [facility] Main [place] [address] [place] [id number] XRay Report Signed Patient: Silver Andujar MR#: [id number] : 1985 Acct:[id number] Age/Sex: 35 / F ADM Date: 01/14/21 Loc: [place] Room: Type: [facility] CLI Attending Dr: Madonna Torrez NP Ordering [...] Sweeney Jr., M.D.01/14/2021 6:46 PM Dictation Location: [place] [address] Transcribed By: [facility] 01/14/211845 Dictated By: Henrry Sweeney Jr, MD 01/14/211840 Signed By: 01/14/211845 Normal [facility] AVWG-CeU-0gr 02-16-2020 SARS-CoV-2 Not Detected Normal Not Detected [facility] Comment on above: Result Comment: (NOT E) Testing was performed using the Aptima SARS-CoV-2 assay. This test was developed and its performance characteristics determined by [employer]. This test has not been FDA cleared [...] result in this assay. Performed At: = [facility] [id number] Macy Ortega MD Ph:[phone] Performed By: #### A COV #### [facility] [address] [place] [address] Rocket Motor Tester: Bronson Webster MD Vital Signs Date Time Vital Sign Value Performing Clinician Facility 07-15-2023 13:44-0500 Body temperature 98.01 [degF] Priscilla Albert APRN.CNP Work Phone: [facility] 07-15-2023 13:44-0500 Diastolic blood pressure 81 mm[Hg] Priscilla Albert APRN.FOLDER STITCHER OPERATOR Work Phone: [facility] 07-15-2023 13:44-0500 Heart rate 89 /min Priscilla Albert APRN.FOLDER STITCHER OPERATOR Work Phone: [facility] 07-15-2023 13:44-0500 Systolic blood pressure 131 mm[Hg] Priscilla Albert APRN.FOLDER STITCHER OPERATOR Work Phone: [facility] 12-29-2019 05:16-0400 BMI (Body Mass Index) 37.24 kg/m2 Raheel Kaminski [facility] [place], [place] 12-29-2019 05:16-0400 Body Temperature 97.3 [degF] [facility] [place] 12-29-2019 05:16-0400 Body weight 121.11 kg Raheel Jackson [place], [place] 12-29-2019 05:16-0400 BP Diastolic 65 mm[Hg] Raheel Ruchi [place] 12-29-2019 05:16-0400 BP Systolic 114 mm[Hg] Raheel Ruchi [place] 12-29-2019 05:16-0400 Height 180.3 cm Raheel [place], [place] 12-29-2019 05:16-0400 Pulse (Heart Rate) 60 /min Raheel Jackson [place], [place] 12-29-2019 05:16-0400 Pulse Oximetry 97 % Raheel Ruchi [place] 12-29-2019 05:16-0400 Respiratory Rate 18 /min Ra[facility]el [facility]LEY Encounters Encounter Date Encounter Type Care Provider Facility Start: 08-01-2023 End: 08-02-2023 ambulatory Rony Daniels MD Facility:[facility] Start: 07-21-2023 End: 07-22-2023 ambulatory Laurel Parrish CATHERINE Facility:[facility] Start: 07-18-2023 End: 07-19-2023 ambulatory Rony Daniels MD Facility:[facility] Start: 07-15-2023 End: 07-15-2023 ambulatory HENRRY VARGAS Facility:[facility] Start: 07-15-2023 End: 07-15-2023 Patient encounter procedure Priscilla Albert APRN.FOLDER STITCHER OPERATOR Work Phone: [facility] Comment on above: Primary hypertension (Primary Dx) Start: 08-26-2022 End: 08-26-2022 Emergency department patient visit CARISSA Crespo [facility] Start: 06-28-2022 End: 06-28-2022 ambulatory MARIE HENRY Facility:[facility] Start: 12-21-2021 End: 12-21-2021 ambulatory MARIE HENRY Facility:[facility] Start: 12-11-2021 ambulatory MARIE HENRY Facility: [facility] Start: 09-27-2021 End: 09-27-2021 ambulatory JOSHUA BAILEY Facility:[facility] Start: 08-11-2021 End: 08-11-[address] MARJAN HAILE Facility: Start: 09-22-2020 End: 09-22-2020 Patient encounter procedure Jaz Iglesias Work Phone: [facility] Start: 08-25-2020 End: 08-25-2020 Patient encounter procedure Jean-Claude Redmond [facility] Start: 02-12-2020 End: 02-13-2020 Patient encounter procedure BESSIE MOSES [facility] Start: 02-12-2020 End: 02-12-2020 Subsequent hospital visit by physician [facility] Start: 12-29-2019 End: 12-29-2019 Emergency department patient visit RAHEEL JACKSON [facility] Start: 12-29-2019 End: 12-29-2019 Emergency department patient visit Raheel Boss Phone: [facility] ED Comment on above: Exposure to needle, initial encounter (Primary Dx) Procedures Date Procedure Procedure Detail Performing Clinician Start: [facility] CARISSA BRADFORD Start: 08-26-2022 APPLY DEAN WRAP CARISSA LIZ Start: 08-26-2022 Radiologic examinati on knee 3 views CARISSA BRADFORD Start: 08-26-2022 Dup-scan xtr veins unilateral/limited study CARISSA BRADFORD Start: 02-12-2020 COVID-19 AMBULATORY JAMES JACKSON Plan of Treatment Date Care Activity Detail Author Start: 08-17-2026 Tetanus vaccination Tetanus: Every 1 0yrs [facility] Start: 08-17-2026 Urine microalbumin profile DTaP,Tdap,Td Vaccine (2 - Td or Tdap) [facility] Start: 04-15-2023 Covid-19 Vaccine ( season) Covid-19 Vaccine ( season) [facility] Start: 04-15-2023 Influenza vaccination Influenza Vacc ine (#1) [facility] Start: 08-15-2022 Depression Assessment Depression Ass essment [facility] Start: 09-22-2020 COVID-19 Vaccine (Moderna) (#2) COVID-19 Vaccine (Moderna) (#2) [facility] Start: 09-22-2020 End: 09-22-2020 Immunization 09/22/2020 Immunization Primary Care Jaz Iglesias MD [address] [facility] [address] [place] [address] [phone] [facility] [employer] [facility] Start: 04-15-2020 Influenza vaccination M [facility] [place] Start: 04-15-2020 Influenza vaccinatio n given Sequential Influenza Vaccine (#1) [facility] Start: 2013 HPV Testing HPV Testing [facility] Start: 2004 Pap Testing Pap Testing [facility] Start: 2001 Hepatitis C antibody , confirmatory test Hepatitis C Screening [facility] Start: 2001 Hepatitis C Screening Hepatitis C Sc reening [facility] Start: 2001 HIV Screening HIV Screening [facility] Start: 1998 HIV screening HIV Screening [facility] Start: 1995 Adolescent depressio n screening assessment Depression Screening (PHQ9) [facility] Start: 1989 Pneumococcal vaccination Pneumococcal Vaccine (1 - PCV) [facility] Start: 1986 History and physical examination, annual for health maintenance Wellness Visit [facility] Start: 1983 Creatinine measurement Creatinine mo nitoring [place], [place] Start: 1983 Hepatitis B Vaccine (1 of 3 - 3-dose series) Hepatitis B Vaccine (1 of 3 - 3-dose series) [facility] Start: 1983 Potassium monitoring Potassium monit oring [place], [place] Start: 1983 Screening for malign ant neoplasm of cervix Pap Smear [facility] Start: 1983 Tetanus vaccination Tetanus: Every 1 0yrs [facility] End: 02-12-2020 Covid-19 Ambulatory Covid-19 Ambulatory Lab Routine Once for 1 Occurrences starting 02/12/2020 until 02/12/2020 [place], [place] Comment on above: Once for 1 Occurrenc es starting 02/12/2020 until 02/12/2020 Covid-19 Ambulatory Covid-19 Amb ulatory Lab Routine 02/12/2020 7:08 AM EDT [place], [place] Immunizations Immunization Date Immunization Notes Care Provider Fa cility 06-04-2022 influenza virus vacc ine, unspecified formulation Priscilla Albert SULEMA.FOLDER STITCHER OPERATOR Work Phone: [facility] 09-22-2020 Moderna SARS-CoV-2 Vaccination Lizbeth Mcclendon [facility] 08-25-2020 Moderna SARS-CoV-2 Vaccination Jean-Claude Redmond [facility] Payers Date Payer Category Payer Unknown [id number] 2019 Unknown 1985 Unknown [id number] 1983 Unknown [id number] 2.16.84 [id number] 1983 Unknown [id number] 2.16.84 [id number] 1983 Unknown [id number] 2.16.84 [id number] 1983 Unknown [id number] 2.16.84 [id number] 1983 Unknown [id number] 2.16.84 [id number] 1983 Unknown [id number] [id number]. [id number] 1983 Unknown [id number] [id number] 1961 Self-pay [id number] Social History Date Type Detail Facility Start: 12-29-2019 End: 07-15-2023 Tobacco smoking status NHIS Current every day smoker [facility] Start: 12-29-2019 End: 07-15-2023 Cigarettes smoked current (pack per day) - Reported [place], [place] Start: 12-29-2019 Alcohol intake Lifetime non-d giovanny (finding) [place] Start: 12-29-2019 History SDOH Alcohol Frequency 1 [place], [place] Start: 1985 Sex Assigned At Not on file [place] Exposure to SARS-CoV -2 (event) Unable to assess [place] Exposure to SARS-CoV -2 (event) Not sure [facility] History of tobacco use Cigarette Smoker [facility] Start: 07-15-2023 Tobacco use and exposure User of smokeless tobacco [facility] Start: 07-15-2023 Tobacco use panel [facility] Progress note 07-15-2023 Note Date & Type Note Facility 07-15-2023 Note HNO ID: [id number] Author: Priscilla Albert APRN.FOLDER STITCHER OPERATOR Service: ? Author Type: Nurse Practitioner Type: [...] seek emergency care Gayatri Tony, MSN, RN- POWDER ROOM ATTENDANT Student Gayatri Tony, student nurse practitioner, and myself have interviewed the patient. I re-performed the HPI and physical exam. Assessment and plan was developed together. I spent a total of 30 minutes on the date of the service which included preparing to see the patient, [id number] patient care, completing clinical documentation, obtaining and/or reviewing separately obtained history, performing a medically appropriate examination, counseling and educating the patient/family/caregiver, and ordering medications, tests, or procedures. Priscilla Albert APRN.[facility] History of Present illness Narrative 07-15-2023 Priscilla Albert APRN.[facility] - 07/15/2023 1:49 PM EST Note [...] seek emergency care Gayatri Tony, MSN, RN-BC POWDER ROOM ATTENDANT Student Gayatri Tony, student nurse practitioner, and myself have interviewed the patient. I re-performed the HPI and physical exam. Assessment and plan was developed together. I spent a total of 30 minutes on the date of the service which included preparing to see the patient, [id number] patient care, completing clinical documentation, obtaining and/or reviewing separately obtained history, performing a medically appropriate examination, counseling and educating the patient/family/caregiver, and ordering medications, tests, or procedures. 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 You need to call No primary care provider on file. to make an appointment as directed for follow up. Should you have any questions regarding your care or further treatment, please call [facility] Emergency Department at [phone]. 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 Advance Directives and Living Will [...] section and content) DATE CREATED AUTHOR 03/06/2020 [facility] DATE CREATED AUTHOR AUTHOR'S ORGANIZ ATION 01/30/2021 [facility] DATE CREATED AUTHOR AUTHOR'S ORGANIZ ATION 06/30/2022 [facility] DATE CREATED AUTHOR AUTHOR'S ORGANIZ ATION 08/26/2022 [facility] DATE CREATED AUTHOR AUTHOR'S ORGANIZ ATION 07/18/2023 [facility] DATE CREATED AUTHOR AUTHOR'S ORGANIZ ATION 07/23/2023 [facility] DATE CREATED AUTHOR AUTHOR'S ORGANIZ ATION 08/05/2023 [facility] Source Comments (unrecognize d section and content) In the event this informatio n is protected by the Federal Confidentiality of Alcohol and Drug Abuse Patient Records regulations: The Federal rules restrict any use of the information to criminally investigate or prosecute any alcohol or drug abuse patient.[facility] Care Teams (unrecognized sec tion and content) 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 [employer] [facility]. provides no warranty or guarantee of the accuracy or completeness of information in this document.
--- NOTE | 2023-09-01 13:36 | P.CN_ITS ---
Consult Note: HPI Data of Consult Patient: new to practice Consult date: 07/18/23 Requesting Physician: Lorna Herring NP Primary Care Provider: MARIE HENRY Consult Narrative Reason for consult: Low back pain, bilateral lower extremity pain Narrative: 37yof who presents for evaluation. worsening low back pain with radiation into lower extremities. continues in provider directed home exercise program >6 weeks >3x/week, has engaged in chiropractice therapy. no relief. imaging reviewed, which shows disc bulging with resultant stenosis at l4-5, l5-s1. has trialed gabapentin, mobic, robaxin, with limited benefit. denies adverse med side effects. Patient has reported improvement in pain and functional ability with tylenol #3 BID PRN, without side effects. Patient continues to take gapabentin 300mg BID, mobic 15mg daily. Patient reporting 75% improvement in pain since bilateral L4 TFESI and bilateral L5 TFESI. Pain today 5/10 sharp constant pain, worse with sitting and activity. cc:: CC: Lorna Herring NP Review of Systems ROS Status of ROS 10 or more systems reviewed and unremark able except as noted in history and below PFSH PFSH Social History Smoking status: Current every day smoker Meds Home Medications and Allergies Home Medications Medication Instructions Recorded Confirmed Type alprazolam 0.5 mg tablet 0.5 mg PO DAILY PRN sleep 06/16/23 08/22/23 History cariprazine 1.5 mg capsule 1.5 mg PO Q24H 06/16/23 08/22/23 History (Sofiya) citalopram 40 mg tablet 40 mg PO DAILY 06/16/23 08/22/23 History gabapentin 300 mg capsule 300 mg PO DAILY 06/16/23 08/22/23 History hydrochlorothiazide 25 mg tablet 25 mg PO DAILY 06/16/23 08/22/23 History lisinopril 20 mg tablet 20 mg PO DAILY 06/16/23 08/22/23 History metoprolol succinate 25 mg 25 mg PO DAILY 06/16/23 08/22/23 History tablet,extended release 24 hr acetaminophen 500 mg tablet 1,000 mg PO DAILY PRN pain 07/18/23 08/22/23 History (Acetaminophen Pain Relief) biotin 10,000 mcg capsule 10,000 mcg PO DAILY 07/18/23 08/22/23 History meloxicam 15 mg tablet 15 mg PO DAILY 07/18/23 08/22/23 History topiramate 50 mg tablet (Topamax) 50 mg PO BID 08/22/23 08/22/23 History Allergies Allergy/AdvReac Type Severity Reaction Status Date / Time buspirone [From BuSpar] Allergy Severe Migraine Verified 08/22/23 09:02 sulfamethoxazole Allergy Severe Anaphylaxis Verified 08/22/23 09:02 [From Bactrim] trimethoprim [From Bactrim] Allergy Severe Anaphylaxis Verified 08/22/23 09:02 venlafaxine [From Effexor] Allergy Severe syncope Verified 08/22/23 09:02 oxycodone [From Percocet] AdvReac Severe Anxiety Verified 08/22/23 09:02 Exam Narrative Exam Narrative: Psych-alert and oriented x 3. Attentive and appropriate, constitutionally normal, displays normal mood and affect per situation. There are no obvious deficits in memory, reasoning, or intellect.? Skin-no obvious rashes, bruising, erythema noted to the patient's area of pain.? Extremities- extremities are warm with minimal edema and palpable pulses. Lumbar-tenderness to palpation noted in the lumbar spine and paraspinal musculature. Pain is elicited with flexion, extension, and lateral rotation of the lumbar spine. Range of motion is diminished with these motions. Facet loading maneuvers are positive.? Strength-noted to be unremarkable with the exception of decreased strength rated at 5 out of 5 in bilateral quadriceps femoris, anterior tibialis. Sensory-no notable sensory deficits in the bilateral lower extremities to touch or pinprick in all dermatomal distributions with the exception to decreased sensation to the left L4, 5 dermatomal distribution Coordination remains intact.? Gait remains non-antalgic. Back & Pelvis Sacroiliac joints: SI joint(s) abnormal Other: pain over left PSIS, pain with FABIRS/FADIRS/ thigh thrust and gaenslens. Assessment and Plan Assessment and Plan (1) Lumbar stenosis with neurogenic claudication: (2) Lumbar disc displacement without myelopathy: (3) Bilateral sacroiliitis: Plan continue current medications, discussed decreasing mobic to 7.5mg daily patient will trial this. Hx of heartburn and on prilosec. continue tylenol #3 BID PRN #45 tablets per month for moderate to severe pain pain in left SIJ, consider left nerve block of nerve innervating SIJ in the future f/u 10 weeks, sooner if needed
== END 2023-09-01 13:08 | disposition home or self-care (01) ==
PROVIDERS: PCP Nurse Practitioner Family; Visit Provider Nurse Practitioner
DX: M48.062 Spinal stenosis, lumbar region with neurogenic claudication (principal); M51.26 Other intervertebral disc displacement, lumbar region; M46.1 Sacroiliitis, not elsewhere classified
CPT/HCPCS: G0463

== ENCOUNTER 2023-10-13 03:20 | Emergency (ER) | payer SELFPAY ==
[2023-10-13] VITALS (11 sets, daily range): BP systolic 109–136; BP diastolic 51–74; PULSE 68–80; RESP 9–25; TEMP 36.6; O2SAT 95–99; BMI 34.9
--- OUTSIDE RECORDS SUMMARY | 2023-10-13 03:26 | XMS_ITS | CCD ---
Author Name Unknown Address [address] [place] [address] Organization [facility] Care Team Providers Care External Grinder Tool Name Role Phone Unavailable Primary Care Provider UnavailRAHEEL Yadav Attending Unavailable BESSIE MOSES Referring Unavailable No, Physician Primary Care Provider UnavailMARIE Jorge Admitting Unavailable MARIE HENRY Attending Unavailable MARIE HENRY Primary Care Unavailable JOSHUA BAILEY Admitting Unavailable JOSHUA BAILEY Attending Unavailable MARIE HENRY Primary Care Unavailable DR RICARDO WEBB V Consulting Unavailable JOSHUA BAILEY Consulting Unavailable MARIE HENRY Primary Care Unavailable CATHERINE BAEZ Consulting Unavailable JOSHUA BAILEY Admitting Unavailable JOSHUA BAILEY Attending Unavailable UMBERTO SO Consulting Unavailable MARIE HENRY Primary Care Unavailable DR TERRANCE ALLISON Admitting UnavailDR TERRANCE Foster Attending UnavailDR RICARDO Abdi V Consulting Unavailable [...] / oxyCODONE Drug Allergy 04-21-20 18 Itching [place], [place] (3 sources) busPIRone Drug Allergy 04-21-20 18 Other: See Comments [place] (3 sources) Sulfamethoxazole / Trimethoprim Drug Allergy 04-21-20 18 Anaphylaxis [place] (2 sources) Acetaminophen / oxyCODONE; 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: [Percocet] Drug Allergy 08-15-19 15 [facility] Repository (2 sources) Adhesive agent Drug allergy (disorder) 11-28-19 15 [facility] (3 sources) busPIRone; 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: [BuSpar] Drug Allergy 08-07-20 16 [facility] (2 sources) Latex; 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: [Latex] Drug allergy (disorder) [facility] (1 source) Sulfamethoxazole / Trimethoprim Drug Allergy [facility] (1 source) venlafaxine Drug Allergy [facility] (1 source) Adhesive bandage; 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: [Adhesive Bandage] Propensity to adverse reactions (disorder) [facility] Repository (1 source) Sulfamethoxazole / Trimethoprim; 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: [Bactrim] Drug Allergy [facility] Medications Current Medications Medication Drug [...] 06-30-2022 Chronic Other aftercare (1 source) 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; 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] Onset: 06-30-2022 Episodic Other [...] Interpretation Reference Range Facility [facility] 07-21-2023 Consent [id number] In office Testingon 07-21-20 In office Testing [id number] [facility] Registrationon 07-21-2023 Registration [id number] [facility] CNOVon 07-15-2023 CNOV Office Visit (RUFINA ) -------- SILVER ANDUJAR ([id number]) 1985 F Date Time Provider Department 07/15/23 1:45 PM PRISCILLA ALBERT During your visit today, we recorded the following information about you: Temperature Pulse Blood pressure 98 degrees 89/minute 131/81 Priscilla Albert APRN.ALARM SERVICE TECHNICIAN 07/15/2023 4:34 PM Signed CC: Headache and high BP HPI: Silver Andujar is a 37 year old female who presents to the [facility] walk [facility] clinic for the above [...] seek emergency care Gayatri Tony, MSN, RN-BC ELECTRONICS ASSEMBLER AND TESTER Student Gayatri Tony, student nurse practitioner, and myself have interviewed the patient. I re-performed the HPI and physical exam. Assessment and plan was developed together. I spent a total of 30 minutes on the date of the service which included preparing to see the patient, [id number] patient care, completing clinical documentation, obtaining and/or reviewing separately obtained history, performing a medically appropriate examination, counseling and educating the patient/family/caregiver , and ordering medications, tests, or procedures. Priscilla Albert APRN.ALARM SERVICE TECHNICIAN Referring Provider: SELF [[id number]] Allergies As of Date: 07/15/2023 Noted Allergy Reaction BUSPIRONE 04/21/2018 14 - Other: See Comments OXYCODONE-ACETAMINOPHEN 04/21/2018 9 - Itching SULFAMETHOXAZOLE-TRIMETH OPRIM 04/21/2018 10 - Anaphylaxis Date Reviewed: 07/15/2023 Reviewed by: Priscilla Albert APRN.ALARM SERVICE TECHNICIAN - Fully Assessed Reason for Visit: Headache [...] Status:Closed by PRISCILLA ALBERT on 07/15/23 Normal [facility] US DUP LOWER EXTREMITY RIGHT VENon 08-26-2022 [...] Henrry Sweeney MD 08/26/22 Final result Normal [facility] Comment on above: Order Comment: Reaso n [...] Henrry Sweeney MD 08/26/22 Final result Normal [facility] Comment on above: Order Comment: Reaso n [...] RICARDO WEBB Date: 2022-06-28 14:32 Normal [facility] CULTURE URINEon 12-22-2021 CULTURE URINE Culture Observations : MODERATE GROWTH OF MIXED SKIN CHARLY. NO POTENTIAL PATHOGENS SEEN. Normal [facility] Comment on above: Performed By: #### U RCX #### [facility] [address] [address] [address] Reba Swain CBC W MANUAL DIFFon 12-22-19 22 ATYPICAL LYMPH # Normal [facility] Comment on above: Performed By: #### C BCMAN #### [facility] [address] [place], [place] [address] Dr. Reba Swain ATYPICAL LYMPH % Normal [facility] Comment on above: Performed By: #### C BCMAN #### [facility] [address] [place] [address] Dr. Reba Swain BAND # Normal 0.0-0.3 [facility] Comment on above: Performed By: #### C BCMAN #### [facility] [address] [place] [address] Dr. Reba Swain BAND % Normal 0-5 [facility] Comment on above: Performed By: #### C BCMAN #### [facility] [address] [place] [address] Dr. Reba Swain BASOM # 0.08 103/ul Normal 0.00-0.10 [facility] Comment on above: Performed By: #### C BCNIKI #### [facility] [address] [place] [address] Dr. Reba Swain BASOM % 1.0 % Normal 0.2-2.0 [facility] Comment on above: Performed By: #### C TRAMAINE #### [facility] [address] [place] [address] Dr. Reba Swain BLAST # Normal [facility] Comment on above: Performed By: #### C TRAMAINE #### [facility] [address] [place] [address] Dr. Reba Swain BLAST % Normal [facility] Comment on above: Performed By: #### C BCNIKI #### [facility] [address] [place] [address] Dr. Reba Swain CORRECTED WBC Normal 4.0-11.0 [facility] Comment on above: Performed By: #### C BCNIKI #### [facility] [address] [place] [address] Dr. Reba Swain EOS # 0.08 103/ul Normal 0.00-0.70 [facility] Comment on above: Performed By: #### C BCMAN #### [facility] [address] [place] [address] Dr. Reba Swain EOS% 1.0 % Normal 0.9-7.0 [facility] Comment on above: Performed By: #### C TRAMAINE #### [facility] [address] [place] [address] Dr. Reba Swain HCT 42.3 % Normal 36.0-48.0 [facility] Comment on above: Performed By: #### C TRAMAINE #### [facility] [address] [place] [address] Dr. Reba Swain HGB 14.0 g/dl Normal 12.0-16.0 [facility] Comment on above: Performed By: #### C TRAMAINE #### [facility] [address] [place] [address] Dr. Reba Swain LYMPHM # 0.83 103/ul Critically low 1.20-3.80 [facility] Comment on above: Performed By: #### C TRAMAINE #### [facility] [address] [place] [address] Dr. Reba Swain LYMPHM% 10.0 % Critically low 20.5-60.0 [facility] Comment on above: Performed By: #### C TRAMAINE #### [facility] [address] [place] [address] Dr. Reba Swain MCH 30.6 pg Normal 26.7-34.0 [facility] Comment on above: Performed By: #### C TRAMAINE #### [facility] [address] [place] [address] Dr. Reba Swain MCHC 33.1 g/dl Normal 29.9-35.2 [facility] Comment on above: Performed By: #### C TRAMAINE #### [facility] [address] [place] [address] Dr. Reba Swain MCV 92.4 fL Normal 81.0-99.0 [facility] Comment on above: Performed By: #### C TRAMAINE #### [facility] [address] [place] [address] Dr. Reba Swain METAMYELOCYTE # Normal [facility] Comment on above: Performed By: #### C TRAMAINE #### [facility] [address] [place] [address] Dr. Reba Swain METAMYELOCYTE % Normal [facility] Comment on above: Performed By: #### C TRAMAINE #### [facility] [id number] Reba Swain MONOM# 0.25 103/ul Critically low 0.30-0.80 [facility] Comment on above: Performed By: #### C TRAMAINE #### [facility] [address] [address] [address] Reba Swain MONOM% 3.0 % Normal 1.7-12.0 [facility] Comment on above: Performed By: #### C TRAMAINE #### [facility] [address] [place] [address] Dr. Reba Swain MPV 10.3 fL Normal 9.5-13.5 [facility] Comment on above: Performed By: #### C TRAMAINE #### [facility] [address] [place] [address] Dr. Reba Swain MYELOCYTE # Normal [facility] Comment on above: Performed By: #### C TRAMAINE #### [facility] [address] [address] [address] Reba Swain MYELOCYTE % Normal [facility] Comment on above: Performed By: #### C TRAMAINE #### [facility] [address] [place] [address] Dr. Reba Swain NRBC Normal [facility] Comment on above: Performed By: #### C TRAMAINE #### [facility] [address] [place] [address] Dr. Reba Swain PLT 190 103/ul Normal 150-450 [facility] Comment on above: Performed By: #### C TRAMAINE #### [facility] [address] [place] [address] Dr. Reba Swain RBC 4.58 106/ul Normal 4.20-5.40 [facility] Comment on above: Performed By: #### C TRAMAINE #### [facility] [address] [place] [address] Dr. Reba Swain RDW 13.3 % Normal 11.0-15.0 [facility] Comment on above: Performed By: #### C TRAMAINE #### [facility] [address] [address] [address] Reba Swain SEG # 7.06 103/ul Critically high 1.40-6.[address] [facility] Comment on above: Performed By: #### Lexie REDD #### [facility] [address] [address] [address] Reba Swain SEG % 85.0 % Critically high 43.0-75.0 [facility] Comment on above: Performed By: #### Lexie REDD #### [facility] [address] [address] [address] Reba Swain WBC 8.3 103/ul Normal 4.0-11.0 [facility] Comment on above: Performed By: #### Lexie REDD #### [facility] [address] [place] [address] HEAD WO CONon [...] Joe SO Date: 2021-12-21 19:59 Normal [facility] ER URINE PROFILEon 2 Bilirubin Ql (U) Negative Normal NEGATIVE [facility] Comment on above: Performed By: #### ESTEPHANIA HUTCHISON #### [facility] [address] [place] [address] Dr. Reba Swain Clarity (U) CLEAR Normal CLEAR [facility] Comment on above: Performed By: #### ESTEPHANIA HUTCHISON #### [facility] [address] [place] [address] Dr. Reba Swain Color (U) YELLOW Normal YELLOW [facility] Comment on above: Performed By: #### Amy CONTRERAS UMICRO #### [facility] [address] [place] [address] Dr. Reba CHAUDHRY A micrscopic examina tion will be performed if indicated. Normal [facility] Comment on above: Performed By: #### Amy CONTRERAS UMICRO #### [facility] [address] [place] [address] Dr. Reba Swain Glucose Ql (U) Negative Normal NEGATIVE [facility] Comment on above: Performed By: #### Amy CONTRERAS UMICRO #### [facility] [address] [place] [address] Dr. Reba Swain Hemoglobin Ql (U) Negative Normal NEGATIVE [facility] Comment on above: Performed By: #### Amy CONTRERAS UMICRO #### [facility] [address] [place] [address] Dr. Reba Swain Ketones Ql (U) Negative Normal NEGATIVE [facility] Comment on above: Performed By: #### Amy CONTRERAS UMICRO #### [facility] [address] [place] [address] Dr. Reba Swain LEUKOCYTES Negative Normal NEGATIVE [facility] Comment on above: Performed By: #### Amy CONTRERAS UMICRO #### [facility] [address] [place] [address] Dr. Reba Swain Nitrite Ql (U) Negative Normal NEGATIVE [facility] Comment on above: Performed By: #### Amy CONTRERAS UMICRO #### [facility] [address] [place] [address] Dr. Reba Swain pH (U) 7.0 [pH] Normal 5-9 [facility] Comment on above: Performed By: #### Amy CONTRERAS UMICRO #### [facility] [address] [place] [address] Dr. Reba Swain Protein (U) [Mass/Vol] 100 mg/dL Abnormal NEGATIVE/ TRACE [facility] Comment on above: Performed By: #### Amy CONTRERAS, WESLEYRO #### [facility] [address] [place] [address] Dr. Reba Swain SPEC GRAVITY 1.025 Normal 1.005-<=1.025 [facility] Comment on above: Performed By: #### Amy CONTRERAS, WESLEYRO #### [facility] [address] [place] [address] Dr. Reba Swain UR MICRO IND INDICATED Normal [facility] Comment on above: Performed By: #### Amy CONTRERAS, WESLEYRO #### [facility] [address] [place] [address] Dr. Reba Swain Urobilinogen Qn (U) 0.2 {Tamia'U}/dL Normal 0.2 - 1. 0 [facility] Comment on above: Performed By: #### WESLEY HUTCHISONRO #### [facility] [address] [place] [address] Dr. Reba Swain PROF CHEM 8 (BAS METB)on Anion gap [Moles/Vol] 14.8 mmol/L Normal [facility] Comment on above: Performed By: #### B MP #### [facility] [address] [place] [address] Dr. Reba Swain Calcium [Mass/Vol] 8.5 mg/dL Normal 8.5-10.1 [facility] Comment on above: Performed By: #### B MP #### [facility] [address] [place] [address] Dr. Reba Swain Chloride [Moles/Vol] 100 mmol/L Normal 98-107 [facility] Comment on above: Performed By: #### B MP #### [facility] [address] [place] [address] Dr. Reba Swain CO2 [Moles/Vol] 23.7 mmol/L Normal 21.0-32.[address] [facility] Comment on above: Performed By: #### B MP #### [facility] [address] [place] [address] Dr. Reba Swain Creatinine [Mass/Vol] 0.79 mg/dL Normal 0.55-1.02 [facility] Comment on above: Performed By: #### B MP #### [facility] [address] [address] [address] Reba Swain EGFR-AF FILIPINO >60 Normal >=60 [facility] Comment on above: Performed By: #### B MP #### [facility] [address] [address] [address] Reba Swain EGFR-NON AF FILIPINO >60 Normal >=60 [facility] Comment on above: Performed By: #### B MP #### [facility] [address] [address] [address] Reba Swain Glucose [Mass/Vol] 107 mg/dL Critically high 74-[address] [facility] Comment on above: Performed By: #### B MP #### [facility] [address] [place] [address] Dr. Reba Swain Potassium [Moles/Vol] 3.5 mmol/L Normal 3.5-5.1 [facility] Comment on above: Performed By: #### B MP #### [facility] [address] [address] [address] Reba Swain Sodium [Moles/Vol] 135 mmol/L Critically low 136-[address] [facility] Comment on above: Performed By: #### B MP #### [facility] [address] [address] [address] Reba Swain Urea nitrogen [Mass/Vol] 9.0 mg/dL Normal 7.0-18.0 [facility] Comment on above: Performed By: #### B MP #### [facility] [address] [address] [address] Reba Swain Urea nitrogen/Creatinine [Mass ratio] 11.4 mg/mg Normal [facility] Comment on above: Performed By: #### B MP #### [facility] [address] [address] [address] Reba Swain TROPONIN, HIGH SENSITIVITYon 12-21-2021 HSTROP 4.3 pg/mL Normal 4.0-51.3 [facility] Comment on above: Result Comment: CUT- OFF POINTS HAVE BEEN ESTABLISHED BASED ON THE FOURTH UNIVERSAL DEFINITIONS OF MYOCARDIAL INFARCTION. THE UPPER REFERENCE LIMIT (URL) OF TROPONIN, DEFINED THE 99TH PERCENTILE OF cTnI DISTRIBUTION IN A REFERENCE POPULATION, HAS BEEN CONFIRMED THE DECISION THRESHOLD FOR CT DIAGNOSIS. Performed By: #### H STROPN #### [facility] [address] [place] [address] Dr. Reba Swain URINE MICROSCOPIC ONLYon BACTERIA SMALL Abnormal NONE SEEN [facility] Comment on above: Performed By: #### E RUR, UMICRO #### [facility] [address] [place] [address] Dr. Reba Swain Bacteria identified Cx Nom (U) INDICATED Normal [facility] Comment on above: Performed By: #### E BESTR, UMICRO #### [facility] [address] [place] [address] Dr. Reba Swain CAST SEEN Abnormal NONE SEEN [facility] Comment on above: Performed By: #### E DIANE UMICRO #### [facility] [address] [place] [address] Dr. Reba Swain Crystals LM Nom (Urine sed) NONE SEEN Normal NONE SEEN [facility] Comment on above: Performed By: #### E DIANE UMICRO #### [facility] [address] [place] [address] Dr. Reba Swain Epithelial cells LM Ql (Urine sed) FEW Abnormal NONE SEEN /RARE [facility] Comment on above: Performed By: #### E DIANE, UMICRO #### [facility] [address] [place] [address] Dr. Reba Swain MUCOUS TRACE Abnormal NONE SEEN [facility] Comment on above: Performed By: #### E DIANE UMICRO #### [facility] [address] [place] [address] Dr. Reba Swain RBC 0-2 Normal 0-2 [facility] Comment on above: Performed By: #### E RUR, UMICRO #### [facility] [address] [place] [address] Dr. Reba Swain WBC 2-5 Abnormal NONE SEEN [facility] Comment on above: Performed By: #### E LEANNA CONTRERASPINE [facility] #### [facility] [address] [address] [address] Reba Swain XR lumbar spine min 4V*on XR lumbar spine min 4V* [facility] [employer] [address] [place] [address] XRay Report Signed Patient: Silver Andujar MR#: [id number] : 1985 Acct:[id number] Age/Sex: 35 / F ADM Date: 01/14/21 Loc: [place] Room: Type: [facility] CLI Attending Dr: Madonna Torrez NP [...] Sweeney Jr., M.D.01/14/2021 6:46 PM Dictation Location: [place] [address] Transcribed By: [facility] 01/14/211845 Dictated By: Henrry Sweeney Jr, MD 01/14/211840 Signed By: 01/14/211845 Normal [facility] [id number] 02-16-2020 SARS-CoV-2 Not Detected Normal Not Detected [facility] Comment on above: Result Comment: (NOT E) Testing was performed using the Aptima SARS-CoV-2 assay. This test was developed and its performance characteristics determined by [facility]. This test has not been FDA cleared [...] result in this assay. Performed At: = [facility] [address] [id number] Macy Ortega MD Ph:[phone] Performed By: #### A COV #### [facility] [address] [place] [address] Pricing Analyst: Bronson Webster MD Vital Signs Date Time Vital Sign Value Performing Clinician Facility 07-15-2023 13:44-0500 Body temperature 98.01 [degF] Priscilla Albret APRN.ALARM SERVICE TECHNICIAN Work Phone: [facility] 07-15-2023 13:44-0500 Diastolic blood pressure 81 mm[Hg] Priscilla Albert APRN.ALARM SERVICE TECHNICIAN Work Phone: [facility] 07-15-2023 13:44-0500 Heart rate 89 /min Priscilla Albert APRN.ALARM SERVICE TECHNICIAN Work Phone: [facility] 07-15-2023 13:44-0500 Systolic blood pressure 131 mm[Hg] Priscilla Albert APRN.ALARM SERVICE TECHNICIAN Work Phone: [facility] 12-29-2019 05:16-0400 BMI (Body Mass Index) 37.24 kg/m2 Raheel Ruchi [place]uf[place] 12-29-2019 05:16-0400 Body Temperature 97.3 [degF] [facility]heel [place] [facility] 12-29-2019 05:16-0400 Body weight 121.11 kg Raheel [place] [employer] [facility] [place] 12-29-2019 05:16-0400 BP Diastolic 65 mm[Hg] Raheel [place] [employer] [place], [place] 12-29-2019 05:16-0400 BP Systolic 114 mm[Hg] Raheel [place] [employer] [facility] [place] 12-29-2019 05:16-0400 Height 180.3 cm Raheel [place] [employer] [place] 12-29-2019 05:16-0400 Pulse (Heart Rate) 60 /min Raheel [place] [employer] [facility] [place] 12-29-2019 05:16-0400 Pulse Oximetry 97 % [facility] [place] 12-29-2019 05:16-0400 Respiratory Rate 18 /min Raheel [place] [facility] Encounters Encounter Date Encounter Type Care Provider Facility Start: 08-22-2023 End: 08-23-2023 ambulatory Rony Daniels MD Facility: [facility] Start: 08-01-2023 End: 08-02-2023 ambulatory Rony Daniels MD Facility: [facility] Start: 07-21-2023 End: 07-22-2023 ambulatory Laurel ALEXANDER Facility:[facility] Start: 07-18-2023 End: 07-19-2023 ambulatory Rony Daniels MD Facility: [facility] Start: 07-15-2023 End: 07-15-2023 ambulatory HENRRY VARGAS Facility:[facility] Start: 07-15-2023 End: 07-15-2023 Patient encounter procedure Priscilla Albert APRN.ALARM SERVICE TECHNICIAN Work Phone: [facility] Comment on above: Primary hypertension (Primary Dx) Start: 08-26-2022 End: 08-26-2022 Emergency department patient visit CARISSA Crespo [facility] Start: 06-28-2022 End: 06-28-2022 ambulatory MARIE HENRY Facility: Start: 12-21-2021 End: 12-21-2021 ambulatory MARIE HENRY Facility:[facility] Start: 12-11-2021 ambulatory MARIE HENRY Facility: [facility] Start: 09-27-2021 End: 09-27-2021 ambulatory JOSHUA BAILEY Facility:[facility] Start: 08-11-2021 End: 08-11-[address] MARJAN HAILE Facility:[facility] Start: 09-22-2020 End: 09-22-2020 Patient encounter procedure Jaz Iglesias Work Phone: [facility] Start: 08-25-2020 End: 08-25-2020 Patient encounter procedure Jean-Claude Redmond [facility] Start: 02-12-2020 End: 02-13-2020 Patient encounter procedure DUKECherie AURELIA [facility] Start: 02-12-2020 End: 02-12-2020 Subsequent hospital visit by physician [facility] Start: 12-29-2019 End: 12-29-2019 Emergency department patient visit RAHEEL JACKSON [facility] Start: 12-29-2019 End: 12-29-2019 Emergency department patient visit Raheel Jackson Work Phone: [facility] ED Comment on above: Exposure to needle, initial encounter (Primary Dx) Procedures Date Procedure Procedure Detail Performing Clinician Start: 08-26-2022 [facility] SUPPLIES CARISSA BRADFORD Start: 08-26-2022 APPLY DEAN WRAP CARISSA LIZ Start: 08-26-2022 Radiologic examinati on knee 3 views CARISSA BRADFORD Start: 08-26-2022 Dup-scan xtr veins unilateral/limited study CARISSA BRADFORD Start: 02-12-2020 COVID-19 AMBULATORY JAMES JACKSON Plan of Treatment Date Care Activity Detail Author Start: 08-17-2026 Tetanus vaccination Tetanus: Every 1 0yrs [facility] Start: 08-17-2026 Urine microalbumin profile DTaP,Tdap,Td Vaccine (2 - Td or Tdap) [facility] Start: 04-15-2023 Covid-19 Vaccine ( season) Covid-19 Vaccine () [facility] Start: 04-15-2023 Influenza vaccination Influenza Vacc ine (#1) [facility] Start: 08-15-2022 Depression Assessment Depression Ass essment [facility] Start: 09-22-2020 COVID-19 Vaccine (Moderna) (#2) COVID-19 Vaccine (Moderna) (#2) [facility] Start: 09-22-2020 End: 09-22-2020 Immunization 09/22/2020 Immunization Primary Care Jaz Iglesias MD [address] [facility] [address] [place], [place] [id number] [facility] [employer] [facility] Start: 04-15-2020 Influenza vaccination M [facility] [place] Start: 04-15-2020 Influenza vaccinatio n given Sequential Influenza Vaccine (#1) [facility] Start: 2013 HPV Testing HPV Testing [facility] Start: 2004 Pap Testing Pap Testing [facility] Start: 2001 Hepatitis C antibody , confirmatory test Hepatitis C Screening [facility] Start: 2001 Hepatitis C Screening Hepatitis C Sc reening [facility] Start: 2001 HIV Screening HIV Screening [facility] Start: 1998 HIV screening HIV Screening [facility] Start: 1995 Adolescent depressio n screening assessment Depression Screening (PHQ9) [facility] Start: 1989 Pneumococcal vaccination Pneumococcal Vaccine (1 - PCV) [facility] Start: 1986 History and physical examination, annual for health maintenance Wellness Visit [facility] Start: 1983 Creatinine measurement Creatinine mo nitoring [facility] [place] Start: 1983 Hepatitis B Vaccine (1 of 3 - 3-dose series) Hepatitis B Vaccine (1 of 3 - 3-dose series) [facility] Start: 1983 Potassium monitoring Potassium monit oring [place], [place] Start: 1983 Screening for malign ant neoplasm of cervix Pap Smear [facility] Start: 1983 Tetanus vaccination Tetanus: Every 1 0yrs [facility] End: 02-12-2020 Covid-19 Ambulatory Covid-19 Ambulatory Lab Routine Once for 1 Occurrences starting 02/12/2020 until 02/12/2020 [place], [place] Comment on above: Once for 1 Occurrenc es starting 02/12/2020 until 02/12/2020 Covid-19 Ambulatory Covid-19 Amb ulatory Lab Routine 02/12/2020 7:08 AM EDT [facility], [place] Immunizations Immunization Date Immunization Notes Care Provider Olamide chapa 06-04-2022 influenza virus vacc ine, unspecified formulation Priscilla Albert APRN.ALARM SERVICE TECHNICIAN Work Phone: [facility] 09-22-2020 Moderna SARS-CoV-2 Vaccination Lizbeth Mcclendon [facility] 08-25-2020 Moderna SARS-CoV-2 Vaccination Jean-Claude Redmond [facility] Payers Date Payer Category Payer Unknown [id number] 2019 Unknown 1985 Unknown [id number] 1985 Unknown [id number] 2.16.84 [id number] 1985 Unknown [id number] 2.16.84 [id number] 1983 Unknown [id number] 2.16.84 [id number] 1983 Unknown [id number] 2.16.84 [id number] 1983 Unknown [id number] 2.16.84 [id number] 1983 Unknown [id number] 2.16. [id number] 1983 Unknown [id number] 2.16. [id number] 1985 Unknown [id number] [id number]. [id number] 1961 Self-pay [id number] Social History Date Type Detail Facility Start: 12-29-2019 End: 07-15-2023 Tobacco smoking status NHIS Current every day smoker [facility] Start: 12-29-2019 End: 07-15-2023 Cigarettes smoked current (pack per day) - [facility] Start: 12-29-2019 Alcohol intake Lifetime non-d giovanny (finding) [facility] Start: 12-29-2019 History SDOH Alcohol Frequency 1 [facility] Start: 1985 Sex Assigned At [facility] on file [facility] Exposure to SARS-CoV -2 (event) [facility] Exposure to SARS-CoV -2 (event) Not sure [facility] History of tobacco use Cigarette Smoker [facility] Start: 07-15-2023 Tobacco use and exposure User of smokeless tobacco [facility] Start: 07-15-2023 Tobacco use panel [facility] Progress note 07-15-2023 Note Date & Type Note Facility 07-15-2023 Note HNO ID: [id number] Author: Priscilla Albert APRN.ALARM SERVICE TECHNICIAN Service: ? Author Type: Nurse Practitioner Type: [...] seek emergency care Gayatri Tony, MSN, RN-BC [employer] Student Gayatri Tony, student nurse practitioner, and myself have interviewed the patient. I re-performed the HPI and physical exam. Assessment and plan was developed together. I spent a total of 30 minutes on the date of the service which included preparing to see the patient, [id number] patient care, completing clinical documentation, obtaining and/or reviewing separately obtained history, performing a medically appropriate examination, counseling and educating the patient/family/caregiver, and ordering medications, tests, or procedures. Priscilla Albert APRN.[facility] History of Present illness Narrative 07-15-2023 Priscilla Albert APRN.ALARM SERVICE TECHNICIAN - 07/15/2023 1:49 PM EST Note Date [...] seek emergency care Gayatri Tony, MSN, RN- [employer] Student Gayatri Tony, student nurse practitioner, and myself have interviewed the patient. I re-performed the HPI and physical exam. Assessment and plan was developed together. I spent a total of 30 minutes on the date of the service which included preparing to see the patient, [id number] patient care, completing clinical documentation, obtaining and/or reviewing separately obtained history, performing a medically appropriate examination, counseling and educating the patient/family/caregiver, and ordering medications, tests, or procedures. Priscilla Albert APRN.ALARM SERVICE TECHNICIAN documented in this encounter [facility] Clinical Note 09-27-2021 Note Date & [...] authenticated by: RICARDO WEBB Date: 2021-09-27 13:13 [facility] Evaluation note Note Date & Type Note Facility Evaluation note Diagnosis Primary hypertension- Primary Unspecified essential hypertension documented in this encounter [facility] Discharge Instructions * Instructions* Crystal Little MD - 12/29/2019 Thank you for visiting [facility] Emergency Department. You need to call No primary care provider on file. to make an appointment as directed for follow up. Should you have any questions regarding your care or further treatment, please call [facility] Emergency Department at [phone]. Take any medications as prescribed, if given [...] FoundDocuments on File Type Date Recorded Patient Report Clerk Expl anation Advance Directives and Living Will Power of Camp Director Documents on File Type Date Recorded Patient Report Clerk Expl anation Advance Directives and Living Will [...] section and content) DATE CREATED AUTHOR 03/06/2020 [facility] DATE CREATED AUTHOR AUTHOR'S ORGANIZ ATION 01/30/2021 [facility] DATE CREATED AUTHOR AUTHOR'S ORGANIZ ATION 06/30/2022 [facility] DATE CREATED AUTHOR AUTHOR'S ORGANIZ ATION 08/26/2022 [facility] DATE CREATED AUTHOR AUTHOR'S ORGANIZ ATION 07/18/2023 [facility] DATE CREATED AUTHOR AUTHOR'S ORGANIZ ATION 07/23/2023 [facility] DATE CREATED AUTHOR AUTHOR'S ORGANIZ ATION 09/06/2023 [facility] Source Comments (unrecognize d section and content) In the event this informatio n is protected by the Federal Confidentiality of Alcohol and Drug Abuse Patient Records regulations: The Federal rules restrict any use of the information to criminally investigate or prosecute any alcohol or drug abuse patient.[facility] Care Teams (unrecognized sec tion and content) External Grinder Tool Relationship Specialty Start Date End Date Henrry Vargas PCP - General Family Medicine 10/21/16 FOR [...] BE BASED ON THE PRIMARY CLINICAL RECORDS. [employer] [facility]. provides no warranty or guarantee of the accuracy or completeness of information in this document.
--- NOTE | 2023-10-13 03:35 | CT_ITS ---
The [address] [address] Patient Name: SILVER ANDUJAR MRN: [id number] date: 1985 Sex: F Assigned Patient Location: ER Current Patient Location: ER Accession/Order Number: [id number] Exam Date: 10/13/2023 03:45 Report Date: 10/13/2023 04:22 At the request of: MARIO ALBERTO RAE Procedure: CT abdomen pelvis wo con EXAM: CT abdomen pelvis wo con HISTORY: Left lower abdominal pain. COMPARISON: CT abdomen/pelvis dated 06/16/2023. TECHNIQUE: Routine CT abdomen/pelvis without intravenous contrast. FINDINGS: Lower chest: Unremarkable. Liver: The liver is unremarkable. Gallbladder/biliary tree: Cholecystectomy without biliary dilatation. Pancreas: Unremarkable. Spleen: Unremarkable. Adrenal glands: Stable mild bilateral adrenal hypertrophy. Kidneys: Both kidneys and both ureters are unremarkable. Bowel: Nonobstructive bowel gas pattern with a large amount of stool within the colon. Sigmoid diverticula without diverticulitis. The appendix, distal esophagus, stomach and small bowel are unremarkable. Vasculature: Atheromatous calcification at the aortic bifurcation and at the origin of both common iliac arteries. The IVC is unremarkable. Inflammation: There is no free air, free fluid or inflammatory reaction. Lymphadenopathy: There are no pathologically enlarged lymph nodes within the abdomen/pelvis. Pelvis: Stable mild circumferential thickening of the wall the urinary bladder. The patient has had a prior hysterectomy. There is a 3.2 cm follicular cyst within the right ovary measuring 9 Hounsfield units and a 3.4 cm follicular cyst within the left ovary measuring 19 Hounsfield units. There are a few pelvic phleboliths. Osseous: Mild discogenic degenerative changes at T10-11 and L4-5. CT/CT abdomen pelvis wo con IMPRESSION: Both kidneys and both ureters are unremarkable. Stable mild circumferential thickening of the wall the urinary bladder. Nonobstructive bowel gas pattern with a large amount of stool within the colon. Sigmoid diverticula without diverticulitis. Follicular cysts within both ovaries measuring 3.2 cm on the right and 3.4 cm on the left. Electronically authenticated by: ILANA CHICAS Date: 10/13/2023 04:22
--- NOTE | 2023-10-13 03:41 | ED.ABDPAIN1 ---
HPI - Abdominal Pain General Chief Complaint: Abdominal Pain Stated Complaint: LOWER ABD PAIN Time Seen by Provider: 10/13/23 03:25 History of Present Illness HPI narrative: Left lower abdominal pain - began 2 days ago. Patient previously diagnosed with ovarian cyst and also with kidney stone. She admits to some nausea and vomiting but no diarrhea. Last night around 2am a bath made the pain go away. Pain returned a few hours later. Nimesh said that this morning the pain returned and the bath did not help, so she decided to come to the ED for evaluation. No relief with OTC meds including tylenol and NSAID. Related Data Home Medications Medication Instructions Recorded Confirmed alprazolam 0.5 mg tablet 0.5 mg PO DAILY PRN sleep 06/16/23 08/22/23 cariprazine 1.5 mg capsule 1.5 mg PO Q24H 06/16/23 08/22/23 (Vraylar) citalopram 40 mg tablet 40 mg PO DAILY 06/16/23 08/22/23 gabapentin 300 mg capsule 300 mg PO DAILY 06/16/23 08/22/23 hydrochlorothiazide 25 mg tablet 25 mg PO DAILY 06/16/23 08/22/23 lisinopril 20 mg tablet 20 mg PO DAILY 06/16/23 08/22/23 metoprolol succinate 25 mg 25 mg PO DAILY 06/16/23 08/22/23 tablet,extended release 24 hr acetaminophen 500 mg tablet 1,000 mg PO DAILY PRN pain 07/18/23 08/22/23 (Acetaminophen Pain Relief) biotin 10,000 mcg capsule 10,000 mcg PO DAILY 07/18/23 08/22/23 meloxicam 15 mg tablet 15 mg PO DAILY 07/18/23 08/22/23 topiramate 50 mg tablet (Topamax) 50 mg PO BID 08/22/23 08/22/23 Previous Rx's Medication Instructions Recorded acetaminophen 300 mg-codeine 30 mg 1 tab PO BID PRN pain #45 tabs 09/27/23 tablet acetaminophen 300 mg-codeine 30 mg 1 tab PO BID PRN pain #45 tabs 09/28/23 tablet nabumetone 750 mg tablet 750 mg PO BID PRN pain #14 tabs 10/13/23 polyethylene glycol 3350 17 17 g PO DAILY 4 days #68 grams 10/13/23 gram/dose oral powder (Miralax) Allergies Allergy/AdvReac Type Severity Reaction Status Date / Time buspirone [From BuSpar] Allergy Severe Migraine Verified 10/13/23 03:28 sulfamethoxazole Allergy Severe Anaphylaxis Verified 10/13/23 03:28 [From Bactrim] trimethoprim [From Bactrim] Allergy Severe Anaphylaxis Verified 10/13/23 03:28 venlafaxine [From Effexor] Allergy Severe syncope Verified 10/13/23 03:28 oxycodone [From Percocet] AdvReac Severe Anxiety Verified 10/13/23 03:28 [facility] Social History Smoking status: Current every day smoker Exam Narrative Exam Narrative: Nurses notes and vital signs reviewed and patient is not hypoxic. afebrile General: Well-appearing and in no apparent distress. Skin: Warm, dry, no pallor noted. No rash. Eye: Pupils are equal, round and EOMI. No scleral icterus. Ears, Nose, Mouth, and Throat: Oral mucosa is moist Cardiovascular: Regular Rate and Rhythm without murmur, gallop or rub. Respiratory: No accessory muscle use or respiratory distress. Lungs are clear to auscultation, no wheezing, rales or rhonchi Back: No CVA tenderness Musculoskeletal: normal ROM, no lower extremity edema/swelling GI: Abdomen is soft, non-distended. Normal bowel sounds. No masses appreciated. LLQ tenderness to palpation. No rebound, guarding, or rigidity noted. Neurological: A&O x4. No cranial nerve dysfunction observed. No truncal ataxia. Moves all extremities. Sensation intact. Psychiatric: Cooperative and interactive. Normal mood and affect. Constitutional Vital Signs, click to edit/add: Last Vital Signs Temp 97.9 F 10/13/23 03:23 Pulse 68 10/13/23 04:51 Resp 18 10/13/23 04:51 BP 114/55 10/13/23 04:30 Pulse Ox 96 10/13/23 04:51 O2 Del Method Room Air 10/13/23 03:23 Course Vital Signs Vital signs: Vital Signs Temperature 97.9 F 10/13/23 03:23 Pulse Rate 76 10/13/23 03:23 Respiratory Rate 16 10/13/23 03:23 Blood Pressure 136/74 10/13/23 03:23 Pulse Oximetry 98 10/13/23 03:23 Oxygen Delivery Method Room Air 10/13/23 03:23 Temperature 97.9 F 10/13/23 03:23 Pulse Rate 68 10/13/23 04:51 Respiratory Rate 18 10/13/23 04:51 Blood Pressure 114/55 10/13/23 04:30 Pulse Oximetry 96 10/13/23 04:51 Oxygen Delivery Method Room Air 10/13/23 03:23 MDM - Abdominal Pain MDM Narrative Medical decision making narrative: Peripheral IV established blood drawn and sent for testing. Urine also was ordered to be obtained and sent for testing. The patient was ordered to receive normal saline IV fluid, IV Zofran and IV Toradol for symptoms. Additionally she was ordered to undergo CT scanning of the abdomen and pelvis without contrast. WBC minimally elevated at 12.2k, no left shift. Unremarkable CMP. Negative lipase. Negative UA. CT did not identify any ureteral stones. Bilateral follicular cysts measuring around 3.2cm identified by the radiologist. Large stool burden without obstruction. Patient informed of results. Discharged home with prescription for Miralax and Nabumeton. Lab Data Attestation: I reviewed the patient's lab results. Labs: Lab Results 10/13/23 10/13/23 Range/Units 03:30 05:00 WBC 12.2 H (4.0-11.0) 10^3/uL RBC 4.72 (4.20-5.40) 10^6/uL Hgb 14.6 (12.0-16.0) g/dL Hct 45.1 (36.0-48.0) % MCV 95.6 (81.0-99.0) fL MCH 30.9 (26.7-34.0) pg MCHC 32.4 (29.9-35.2) g/dL RDW 14.1 (11.0-15.0) % Plt Count 207 (150-450) 10^3/uL MPV 10.7 (9.5-13.5) fL Neut % (Auto) 66.1 (43.0-75.0) % Lymph % (Auto) 21.1 (20.5-60.0) % Pope % (Auto) 7.8 (1.7-12.0) % Eos % (Auto) 2.7 (0.9-7.0) % Baso % (Auto) 0.4 (0.2-2.0) % Neut # (Auto) 8.1 H (1.4-6.5) 10^3/uL Lymph # (Auto) 2.6 (1.2-3.8) 10^3/uL Pope # (Auto) 1.0 H (0.3-0.8) 10^3/uL Eos # (Auto) 0.3 (0.0-0.7) 10^3/uL Baso # (Auto) 0.1 (0.0-0.1) 10^3/uL Abs Immat Gran (auto) 0.23 H (0.00-0.03) 10^3/uL Imm/Tot Granulo (auto) 1.9 H (0.0-0.5) % Sodium 139 (136-145) mmol/L Potassium 3.3 L (3.5-5.1) mmol/L Chloride 105 (98-107) mmol/L Carbon Dioxide 27.5 (21.0-32.0) mmol/L Anion Gap 9.8 BUN 18.0 (7.0-18.0) mg/dL Creatinine 0.94 (0.55-1.02) mg/dL Est GFR ( Amer) >60 (>=60) Est GFR (Non-Af Amer) >60 (>=60) BUN/Creatinine Ratio 19.1 Glucose 112 H (74-106) mg/dL Calcium 8.7 (8.5-10.1) mg/dL Total Bilirubin 0.3 (0.2-1.0) mg/dL AST 11 L (15-37) U/L ALT 22 (14-59) U/L Alkaline Phosphatase 60 (46-116) U/L Total Protein 7.5 (6.4-8.2) g/dL Albumin 3.3 L (3.4-5.0) g/dL Globulin 4.2 g/dL Albumin/Globulin Ratio 0.8 Lipase 36.0 (16.0-77.0) U/L Urine Color Yellow (YELLOW) Urine Clarity Clear (CLEAR) Urine pH 7.0 (5.0-9.0) Ur Specific [place] 1.020 (1.005-1.025) Urine Protein Negative (NEG/TRACE) mg/dL Urine Glucose (UA) Negative (NEGATIVE) mg/dL Urine Ketones Negative (NEGATIVE) mg/dL Urine Occult Blood Negative (NEGATIVE) Urine Nitrite Negative (NEGATIVE) Urine Bilirubin Negative (NEGATIVE) Urine Urobilinogen 0.2 (0.2-1.0) EU/dL Ur Leukocyte Esterase Negative (NEGATIVE) Imaging Data CT scan - abdomen: Radiologist's impression: ITS Impressions Abdomen/Pelvis CT 10/13/23 03:35 IMPRESSION: Both kidneys and both ureters are unremarkable. Stable mild circumferential thickening of the wall the urinary bladder. Nonobstructive bowel gas pattern with a large amount of stool within the colon. Sigmoid diverticula without diverticulitis. Follicular cysts within both ovaries measuring 3.2 cm on the right and 3.4 cm on the left. Electronically authenticated by: ILANA CHICAS Date: 10/13/2023 04:22 Discharge Plan Discharge Chief Complaint: Abdominal Pain Clinical Impression: Abdominal pain, Constipation, Bilateral ovarian cysts Patient Disposition: Home, Self-Care Time of Disposition Decision: 05:42 Prescriptions / Home Meds: New nabumetone 750 mg tablet 750 mg PO BID PRN (Reason: pain) Qty: 14 0RF polyethylene glycol 3350 [Miralax] 17 gram/dose powder 17 g PO DAILY 4 Days Qty: 68 0RF No Action citalopram 40 mg tablet 40 mg PO DAILY lisinopril 20 mg tablet 20 mg PO DAILY alprazolam 0.5 mg tablet 0.5 mg PO DAILY PRN (Reason: sleep) gabapentin 300 mg capsule 300 mg PO DAILY hydrochlorothiazide 25 mg tablet 25 mg PO DAILY metoprolol succinate 25 mg tablet extended release 24 hr 25 mg PO DAILY Vraylar 1.5 mg capsule 1.5 mg PO Q24H topiramate [Topamax] 50 mg tablet 50 mg PO BID meloxicam 15 mg tablet 15 mg PO DAILY biotin 10,000 mcg capsule 10,000 mcg PO DAILY acetaminophen [Acetaminophen Pain Relief] 500 mg tablet 1,000 mg PO DAILY PRN (Reason: pain) acetaminophen-codeine 300-30 mg tablet 1 tab PO BID PRN (Reason: pain) Qty: 45 0RF acetaminophen-codeine 300-30 mg tablet 1 tab PO BID PRN (Reason: pain) Qty: 45 0RF Instructions: Ovarian Cyst (ED), Constipation (ED), Abdominal Pain (ED) Stand Alone Forms: Portal Instructions Referrals: MARIE HENRY [Primary Care Provider] - 1 week
[2023-10-13] MEDS: KETOROLAC TROMETHAMINE 30 MG/ML VIAL IVP (03:48)
[2023-10-13] MEDS: ONDANSETRON PF 4 MG/2 ML VIAL IV (03:48)
[2023-10-13] MEDS: 0.9 % SODIUM CHLORIDE 1,000 ML 999 ML IV (03:48)
[2023-10-13 04:03] LABS: Basophils Absolute Auto 0.1 10^3/uL (0.0-0.1); Basophils Percent Auto 0.4 % (0.2-2.0); Eosinophils Absolute Auto 0.3 10^3/uL (0.0-0.7); Eosinophils Percent Auto 2.7 % (0.9-7.0); Hematocrit 45.1 % (36.0-48.0); Hemoglobin 14.6 g/dL (12.0-16.0); Immature Granulocytes Abs Auto 0.23 10^3/uL (0.00-0.03); Immature Granulocytes Pct Auto 1.9 % (0.0-0.5); Lymphocytes Absolute Auto 2.6 10^3/uL (1.2-3.8); Lymphocytes Percent Auto 21.1 % (20.5-60.0); Mean Corpuscular HGB Conc 32.4 g/dL (29.9-35.2); Mean Corpuscular Hemoglobin 30.9 pg (26.7-34.0); Mean Corpuscular Volume 95.6 fL (81.0-99.0); Mean Platelet Volume 10.7 fL (9.5-13.5); Monocytes Percent Auto 7.8 % (1.7-12.0); Neutrophils Absolute Auto 8.1 10^3/uL (1.4-6.5); Neutrophils Percent Auto 66.1 % (43.0-75.0); Platelet Count 207 10^3/uL (150-450); Red Blood Count 4.72 10^6/uL (4.20-5.40); Red Cell Distribution Width 14.1 % (11.0-15.0); White Blood Count 12.2 10^3/uL (4.0-11.0)
[2023-10-13 04:06] LABS: Alanine Aminotransferase 22 U/L (14-59); Albumin Globulin Ratio 0.8; Albumin Level 3.3 g/dL (3.4-5.0); Alkaline Phosphatase 60 U/L (46-116); Anion Gap 9.8; Aspartate Amino Transferase 11 U/L (15-37); BUN Creatinine Ratio 19.1; Bilirubin Total 0.3 mg/dL (0.2-1.0); Calcium 8.7 mg/dL (8.5-10.1); Carbon Dioxide 27.5 mmol/L (21.0-32.0); Chloride 105 mmol/L (98-107); Estimated GFR (African America >60 (>=60); Estimated GFR (Non-African Ame >60 (>=60); Globulin 4.2 g/dL; Glucose 112 mg/dL (74-106); Potassium 3.3 mmol/L (3.5-5.1); Sodium 139 mmol/L (136-145); Total Protein 7.5 g/dL (6.4-8.2)
[2023-10-13 05:13] LABS: Bilirubin Urine NEGATIVE (NEGATIVE); Blood Urine NEGATIVE (NEGATIVE); Clarity Urine CLEAR (CLEAR); Color Urine YELLOW (YELLOW); Glucose Urine UA NEGATIVE (NEGATIVE); Ketones Urine NEGATIVE (NEGATIVE); Leukocyte Esterase Urine NEGATIVE (NEGATIVE); Nitrite Urine NEGATIVE (NEGATIVE); Protein Urine NEGATIVE (NEG/TRACE); Urobilinogen Urine 0.2 EU/dL (0.2-1.0)
[2023-10-13 05:14] LABS: Urine Microscopic Indicated NO
== END 2023-10-13 05:55 | disposition home or self-care (01) ==
PROVIDERS: Emergency Provider Emergency Medicine; PCP Nurse Practitioner Family
DX: N83.202 Unspecified ovarian cyst, left side (principal); N83.201 Unspecified ovarian cyst, right side; R10.9 Unspecified abdominal pain; K59.00 Constipation, unspecified; Z87.442 Personal history of urinary calculi; Z79.899 Other long term (current) drug therapy; F17.210 Nicotine dependence, cigarettes, uncomplicated
CPT/HCPCS: 36415; 74176; 80053; 81003; 83690; 85025; 96361; 96374; 96375; 99284

== ENCOUNTER 2023-12-01 13:08 | Outpatient (OUT) | payer BC, SELFPAY ==
--- OUTSIDE RECORDS SUMMARY | 2023-12-01 13:19 | XMS_ITS | CCD ---
Author Organization [facility] Care Team Providers Care Merchandising Specialist Name Role Phone Unavailable Primary Care Provider [...] Primary Care Unavailable DR TERRANCE ALLISON Admitting Unavailgianna ALLISON, DR TERRANCE Workman Attending UnavailDR RICARDO Abdi V Consulting Unavailable CATHERINE CARUSO Consulting Unavailable DR MARJAN HAILE Primary Care Unavailable DEAN LOOB Consulting Unavailable DEAN LOBO Admitting Unavailable DEAN [...] / oxyCODONE Drug Allergy 04-21-20 18 Itching [facility]- [place], [place] (3 sources) busPIRone Drug Allergy 04-21-20 18 Other: See Comments [place], [place] (3 sources) Sulfamethoxazole / Trimethoprim Drug Allergy 04-21-20 18 Anaphylaxis [place], [place] (2 sources) Acetaminophen / oxyCODONE; 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: [Percocet] Drug Allergy 08-15-19 15 [facility] Repository (2 sources) Adhesive agent Drug allergy (disorder) 11-28-19 15 [facility] (3 sources) busPIRone; 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: [BuSpar] Drug Allergy 08-07-20 16 [facility] Rep[facility] (2 sources) Latex; 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: [Latex] Drug allergy (disorder) [facility] Rep[facility] (1 source) Sulfamethoxazole / Trimethoprim Drug Allergy [facility] (1 source) venlafaxine Drug Allergy [facility] (1 source) Adhesive bandage; 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: [Adhesive Bandage] Propensity to adverse reactions (disorder) [facility] Repository (1 source) Sulfamethoxazole / Trimethoprim; 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: [Bactrim] Drug Allergy [facility] Repository Medications Current Medications Medication Drug Class(es) [...] 06-30-2022 Chronic Other aftercare (1 source) Other assisted (current) drug therapy; 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: [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 THERAPY] Onset: 06-30-2022 Episodic Other [...] Interpretation Reference Range Facility [facility] 07-21-2023 Consent [id number] F [facility] In office Testingon 07-21-20 23 In office Testing [id number] FF [facility] Registrationon 07-21-2023 Registration [id number] F [facility] CNOVon 07-15-2023 CNOV Office Visit (WALKMN ) -------- SILVER ANDUJAR ([id number]) 1985 F Date Time Provider Department 07/15/23 1:45 PM PRISCILLA ALBERT During your visit today, we recorded the following information about you: Temperature Pulse Blood pressure 98 degrees 89/minute 131/81 Priscilla Albert APRN.[facility] 07/15/2023 4:34 PM Signed CC: Headache and high BP HPI: Silver Andujar is a 37 year old female who presents to the [facility] walk in clinic for the above [...] seek emergency care Gayatri Tony, MSN, RN-BC AUTOMOTIVE SERVICE PROFESSIONAL Student Gayatri Tony, student nurse practitioner, and myself have interviewed the patient. I re-performed the HPI and physical exam. Assessment and plan was developed together. I spent a total of 30 minutes on the date of the service which included preparing to see the patient, [id number] patient care, completing clinical documentation, obtaining and/or reviewing separately obtained history, performing a medically appropriate examination, counseling and educating the patient/family/caregiver , and ordering medications, tests, or procedures. Priscilla Albert APRN.DATA ANALYTICS ANALYST Referring Provider: SELF [[id number]] Allergies As of Date: 07/15/2023 Noted Allergy Reaction BUSPIRONE 04/21/2018 14 - Other: See Comments OXYCODONE-ACETAMINOPHEN 04/21/2018 9 - Itching SULFAMETHOXAZOLE-TRIMETH OPRIM 04/21/2018 10 - Anaphylaxis Date Reviewed: 07/15/2023 Reviewed by: Priscilla Albert APRN.DATA ANALYTICS ANALYST - Fully Assessed Reason for Visit: Headache [...] Status:Closed by PRISCILLA ALBERT on 07/15/23 Normal [facility] US DUP LOWER EXTREMITY RIGHT VENon [...] Henrry Sweeney MD 08/26/22 Final result Normal [facility] Comment on above: Order Comment: Reaso [...] Henrry Sweeney MD 08/26/22 Final result Normal [facility] Comment on above: Order Comment: Reaso [...] RICARDO WEBB Date: 2022-06-28 14:32 Normal [facility] CULTURE URINEon 12-22-2021 CULTURE URINE Culture Observations : MODERATE GROWTH OF MIXED SKIN CHARLY. NO POTENTIAL PATHOGENS SEEN. Normal [facility] Comment on above: Performed By: #### U RCX #### [facility] [address] [address] [address] Reba Swain CBC W MANUAL DIFFon 12-22-19 22 ATYPICAL LYMPH # Normal [facility] Comment on above: Performed By: #### C BCMAN #### [facility] [address] [address] [address] Reba Swain ATYPICAL LYMPH % Normal [facility] Comment on above: Performed By: #### C BCMAN #### [facility] [address] [address] [address] Reba Swain BAND # Normal 0.0-0.3 [facility] Comment on above: Performed By: #### C BCMAN #### [facility] [address] [place] [address] Dr. Reba Swain BAND % Normal 0-5 [facility] Comment on above: Performed By: #### C BCMAN #### [facility] [address] [place] [address] Dr. Reba Swain BASOM # 0.08 103/ul Normal 0.00-0.10 [facility] Comment on above: Performed By: #### C BCMAN #### [facility] [address] [place] [address] Dr. Reba Swain BASOM % 1.0 % Normal 0.2-2.0 [facility] Comment on above: Performed By: #### C BCMAN #### [facility] [address] [place] [address] Dr. Reba Swain BLAST # Normal [facility] Comment on above: Performed By: #### C BCNIKI #### [facility] [address] [place] [address] Dr. Reba Swain BLAST % Normal [facility] Comment on above: Performed By: #### C BCNIKI #### [facility] [address] [place] [address] Dr. Reba Swain CORRECTED WBC Normal 4.0-11.0 [facility] Comment on above: Performed By: #### C BCNIKI #### [facility] [address] [place] [address] Dr. Reba Swain EOS # 0.08 103/ul Normal 0.00-0.70 [facility] Comment on above: Performed By: #### C BCMAN #### [facility] [address] [place] [address] Dr. Reba Swain EOS% 1.0 % Normal 0.9-7.0 [facility] Comment on above: Performed By: #### C BCNIKI #### [facility] [address] [place] [address] Dr. Reba Swain HCT 42.3 % Normal 36.0-48.0 [facility] Comment on above: Performed By: #### C TRAMAINE #### [facility] [address] [address] [address] Reba Swain HGB 14.0 g/dl Normal 12.0-16.0 [facility] Comment on above: Performed By: #### C TRAMAINE #### [facility] [address] [address] [address] Reba Swain LYMPHM # 0.83 103/ul Critically low 1.20-3.80 [facility] Comment on above: Performed By: #### C TRAMAINE #### [facility] [address] [address] [address] Reba Swain LYMPHM% 10.0 % Critically low 20.5-60.0 [facility] Comment on above: Performed By: #### C TRAMAINE #### [facility] [address] [place] [address] Dr. Reba Swain MCH 30.6 pg Normal 26.7-34.0 [facility] Comment on above: Performed By: #### C TRAMAINE #### [facility] [address] [place] [address] Dr. Reba Swain MCHC 33.1 g/dl Normal 29.9-35.2 [facility] Comment on above: Performed By: #### C TRAMAINE #### [facility] [address] [address] [address] Reba Swain MCV 92.4 fL Normal 81.0-99.0 [facility] Comment on above: Performed By: #### C TRAMAINE #### [facility] [address] [place] [address] Dr. Reba Swain METAMYELOCYTE # Normal [facility] Comment on above: Performed By: #### C TRAMAINE #### [facility] [address] [place] [address] Dr. Reba Swain METAMYELOCYTE % Normal [facility] Comment on above: Performed By: #### C TRAMAINE #### [facility] [address] [address] [address] Reba Swain MONOM# 0.25 103/ul Critically low 0.30-0.80 [facility] Comment on above: Performed By: #### C TRAMAINE #### [facility] [address] [place] [address] Dr. Reba Swain MONOM% 3.0 % Normal 1.7-12.0 [facility] Comment on above: Performed By: #### C TRAMAINE #### [facility] [address] [place] [address] Dr. Reba Swain MPV 10.3 fL Normal 9.5-13.5 [facility] Comment on above: Performed By: #### C BCMAN #### [facility] [address] [place] [address] Dr. Reba Swain MYELOCYTE # Normal [facility] Comment on above: Performed By: #### C TRAMAINE #### [facility] [address] [place] [address] Dr. Reba Swain MYELOCYTE % Normal [facility] Comment on above: Performed By: #### C TRAMAINE #### [facility] [address] [place] [address] Dr. Reba Swain NRBC Normal [facility] Comment on above: Performed By: #### C TRAMAINE #### [facility] [address] [place] [address] Dr. Reba Swain PLT 190 103/ul Normal 150-450 [facility] Comment on above: Performed By: #### C TRAMAINE #### [facility] [address] [place] [address] Dr. Reba Swain RBC 4.58 106/ul Normal 4.20-5.40 [facility] Comment on above: Performed By: #### C TRAMAINE #### [facility] [address] [place] [address] Dr. Reba Swain RDW 13.3 % Normal 11.0-15.0 [facility] Comment on above: Performed By: #### C TRAMAINE #### [facility] [address] [place] [address] Dr. Reba Swain SEG # 7.06 103/ul Critically high 1.40-6.50 [facility] Comment on above: Performed By: #### C TRAMAINE #### [facility] [address] [address] [address] Reba Swain SEG % 85.0 % Critically high 43.0-75.0 [facility] Comment on above: Performed By: #### C TRAMAINE #### [facility] [address] [address] [address] Reba Swain WBC 8.3 103/ul Normal 4.0-11.0 [facility] Comment on above: Performed By: #### C TRAMAINE #### [facility] [address] [address] [address] HEAD WO CONon [...] Joe SO Date: 2021-12-21 19:59 Normal [facility] ER URINE PROFILEon 2 Bilirubin Ql (U) Negative Normal NEGATIVE [facility] Comment on above: Performed By: #### ESTEPHANIA HUTCHISON #### [facility] [address] [place] [address] Dr. Reba Swain Clarity (U) CLEAR Normal CLEAR [facility] Comment on above: Performed By: #### ESTEPHANIA HUTCHISON #### [facility] [id number] Reba Swain Color (U) YELLOW Normal YELLOW [facility] Comment on above: Performed By: #### Amy CONTRERAS UMICRO #### [facility] [address] [address] [address] Reba CHAUDHRY A micrscopic examina tion will be performed if indicated. Normal [facility] Comment on above: Performed By: #### Amy CONTRERAS UMICRO #### [facility] [address] [address] [address] Reba Swain Glucose Ql (U) Negative Normal NEGATIVE [facility] Comment on above: Performed By: #### Amy CONTRERAS UMICRO #### [facility] [address] [place] [address] Dr. Reba Swain Hemoglobin Ql (U) Negative Normal NEGATIVE [facility] Comment on above: Performed By: #### Amy CONTRERAS UMICRO #### [facility] [address] [place] [address] Dr. Reba Swain Ketones Ql (U) Negative Normal NEGATIVE [facility] Comment on above: Performed By: #### Amy CONTRERAS UMICRO #### [facility] [address] [place] [address] Dr. Reba Swain LEUKOCYTES Negative Normal NEGATIVE [facility] Comment on above: Performed By: #### Amy CONTRERAS UMICRO #### [facility] [address] [place] [address] Dr. Reba Swain Nitrite Ql (U) Negative Normal NEGATIVE [facility] Comment on above: Performed By: #### Amy CONTRERAS UMICRO #### [facility] [address] [place] [address] Dr. Reba Swain pH (U) 7.0 [pH] Normal 5-9 [facility] Comment on above: Performed By: #### Amy CONTRERAS UMICRO #### [facility] [address] [place] [address] Dr. Reba Swain Protein (U) [Mass/Vol] 100 mg/dL Abnormal NEGATIVE/ TRACE [facility] Comment on above: Performed By: #### Amy CONTRERAS UMICRO #### [facility] [address] [place] [address] Dr. Reba Swain SPEC GRAVITY 1.025 Normal 1.005-<=1.025 [facility] Comment on above: Performed By: #### ESTEPHANIA HUTCHISON #### [facility] [address] [place] [address] Dr. Reba Swain UR MICRO IND INDICATED Normal [facility] Comment on above: Performed By: #### ESTEPHANIA HUTCHISON #### [facility] [address] [place] [address] Dr. Reba Swain Urobilinogen Qn (U) 0.2 {Tamia'U}/dL Normal 0.2 - 1. 0 [facility] Comment on above: Performed By: #### ESTEPHANIA HUTCHISON #### [facility] [address] [place] [address] Dr. Reba Swain PROF CHEM 8 (BAS METB)on Anion gap [Moles/Vol] 14.8 mmol/L Normal [facility] Comment on above: Performed By: #### B MP #### [facility] [address] [place] [address] Dr. Reba Swain Calcium [Mass/Vol] 8.5 mg/dL Normal 8.5-10.1 [facility] Comment on above: Performed By: #### B MP #### [facility] [address] [place] [address] Dr. Reba Swain Chloride [Moles/Vol] 100 mmol/L Normal 98-107 [facility] Comment on above: Performed By: #### B MP #### [facility] [address] [place] [address] Dr. Reba Swain CO2 [Moles/Vol] 23.7 mmol/L Normal 21.0-32.0 [facility] Comment on above: Performed By: #### B MP #### [facility] [address] [place] [address] Dr. Reba Swain Creatinine [Mass/Vol] 0.79 mg/dL Normal 0.55-1.02 [facility] Comment on above: Performed By: #### B MP #### [facility] [address] [address] [address] Reba Swain EGFR-AF KAZAKH >60 Normal >=60 [facility] Comment on above: Performed By: #### B MP #### [facility] [address] [address] [address] Reba Swain EGFR-NON AF KAZAKH >60 Normal >=60 [facility] Comment on above: Performed By: #### B MP #### [facility] [address] [address] [address] Reba Swain Glucose [Mass/Vol] 107 mg/dL Critically high 74-106 [facility] Comment on above: Performed By: #### B MP #### [facility] [address] [address] [address] Reba Swain Potassium [Moles/Vol] 3.5 mmol/L Normal 3.5-5.1 [facility] Comment on above: Performed By: #### B MP #### [facility] [address] [address] [address] Reba Swain Sodium [Moles/Vol] 135 mmol/L Critically low 136-[address] [facility] Comment on above: Performed By: #### B MP #### [facility] [address] [address] [address] Reba Swain Urea nitrogen [Mass/Vol] 9.0 mg/dL Normal 7.0-18.0 [facility] Comment on above: Performed By: #### B MP #### [facility] [address] [address] [address] Reba Swain Urea nitrogen/Creatinine [Mass ratio] 11.4 mg/mg Normal [facility] Comment on above: Performed By: #### B MP #### [facility] [address] [place] [address] Dr. Reba Swain TROPONIN, HIGH SENSITIVITYon 12-21-2021 HSTROP 4.3 pg/mL Normal 4.0-51.3 [facility] Comment on above: Result Comment: CUT- OFF POINTS HAVE BEEN ESTABLISHED BASED ON THE FOURTH UNIVERSAL DEFINITIONS OF MYOCARDIAL INFARCTION. THE UPPER REFERENCE LIMIT (URL) OF TROPONIN, DEFINED THE 99TH PERCENTILE OF cTnI DISTRIBUTION IN A REFERENCE POPULATION, HAS BEEN CONFIRMED THE DECISION THRESHOLD FOR NC DIAGNOSIS. Performed By: #### H STROPN #### [facility] [address] [place] [address] Dr. Reba Swain URINE MICROSCOPIC ONLYon BACTERIA SMALL Abnormal NONE SEEN [facility] Comment on above: Performed By: #### E RUR UMICRO #### [facility] [address] [place] [address] Dr. Reba Swain Bacteria identified Cx Nom (U) INDICATED Normal [facility] Comment on above: Performed By: #### E RUR UMICRO #### [facility] [address] [place] [address] Dr. Reba Swain CAST SEEN Abnormal NONE SEEN [facility] Comment on above: Performed By: #### E DIANE UMICRO #### [facility] [address] [place] [address] Dr. Reba Swain Crystals LM Nom (Urine sed) NONE SEEN Normal NONE SEEN [facility] Comment on above: Performed By: #### E RUR UMICRO #### [facility] [address] [place] [address] Dr. Reba Swain Epithelial cells LM Ql (Urine sed) FEW Abnormal NONE SEEN /RARE [facility] Comment on above: Performed By: #### E DIANE UMICRO #### [facility] [address] [place] [address] Dr. Reba Swain MUCOUS TRACE Abnormal NONE SEEN [facility] Comment on above: Performed By: #### E RUR, UMICRO #### [facility] [address] [place] [address] Dr. Reba Swain RBC 0-2 Normal 0-2 [facility] Comment on above: Performed By: #### E RUR, UMICRO #### [facility] [address] [place] [address] Dr. Reba Swain WBC 2-5 Abnormal NONE SEEN [facility] Comment on above: Performed By: #### E RUR, UMICRO #### [facility] [address] [address] [address] Reba Swain XR lumbar spine min 4V*on XR lumbar spine min 4V* [facility] Main [place] [address] [place] [id number] XRay Report Signed Patient: Silver Andujar MR#: [id number] : 1985 Acct:[id number] Age/Sex: 35 / F ADM Date: 01/14/21 Loc: [place] Room: Type: [facility] CLI Attending Dr: Madonna Torrez [...] Sweeney Jr., M.D.01/14/2021 6:46 PM Dictation Location: [address] [address] Transcribed By: [facility] 01/14/211845 Dictated By: Henrry Sweeney Jr, MD 01/14/211840 Signed By: 01/14/211845 Normal [facility] [id number] 02-16-2020 SARS-CoV-2 Not Detected Normal Not Detected [facility] Comment on above: Result Comment: (NOT E) Testing was performed using the Aptima SARS-CoV-2 assay. This test was developed and its performance characteristics determined by [employer]. This test has not been FDA cleared [...] result in this assay. Performed At: = [facility] [id number] Macy Ortega MD Ph:[phone] Performed By: #### A COV #### [facility] [address] [place] [address] Cash Register Balancer: Bronson Webster MD Vital Signs Date Time Vital Sign Value Performing Clinician Facility 07-15-2023 13:44-0500 Body temperature 98.01 [degF] Priscilla Albert APRN.CNP Work Phone: [facility] 07-15-2023 13:44-0500 Diastolic blood pressure 81 mm[Hg] Priscilla Albert APRN.DATA ANALYTICS ANALYST Work Phone: [facility] 07-15-2023 13:44-0500 Heart rate 89 /min Priscilla Albert APRN.DATA ANALYTICS ANALYST Work Phone: [facility] 07-15-2023 13:44-0500 Systolic blood pressure 131 mm[Hg] Priscilla Albert APRN.DATA ANALYTICS ANALYST Work Phone: [facility] 12-29-2019 05:16-0400 BMI (Body Mass Index) 37.24 kg/m2 Raheel Kaminski [facility] [place], [place] 12-29-2019 05:16-0400 Body Temperature 97.3 [degF] [facility] [place] 12-29-2019 05:16-0400 Body weight 121.11 kg Raheel Jackson [facility] [place] 12-29-2019 05:16-0400 BP Diastolic 65 mm[Hg] Raheel Jackson [place], [place] 12-29-2019 05:16-0400 BP Systolic 114 mm[Hg] Raheel Ruchi [place] 12-29-2019 05:16-0400 Height 180.3 cm Raheel Ruchi [place], [place] 12-29-2019 05:16-0400 Pulse (Heart Rate) 60 /min Raheel Jackson [place] 12-29-2019 05:16-0400 Pulse Oximetry 97 % Raheel Jackson [place] 12-29-2019 05:16-0400 Respiratory Rate 18 /min [facility] [place] [facility] Encounters Encounter Date Encounter Type Care Provider Facility Start: 08-22-2023 End: 08-23-2023 ambulatory Rony Daniels MD Facility: [place] Start: 08-01-2023 End: 08-02-2023 ambulatory Rony Daniels MD Facility: [place] Start: 07-21-2023 End: 07-22-2023 ambulatory Laurel ALEXANDER Facility:[facility] Start: 07-18-2023 End: 07-19-2023 ambulatory Rony Daniels MD Facility: [place] Start: 07-15-2023 End: 07-15-2023 ambulatory HENRRY VARGAS Facility:[facility] Start: 07-15-2023 End: 07-15-2023 Patient encounter procedure Priscilla Albert APRN.DATA ANALYTICS ANALYST Work Phone: [facility] Comment on above: Primary hypertension (Primary Dx) Start: 08-26-2022 End: 08-26-2022 Emergency department patient visit CARISSA Crespo [facility] Start: 06-28-2022 End: 06-28-2022 ambulatory MARIE HENRY Facility:[facility] Start: 12-21-2021 End: 12-21-2021 ambulatory MARIE HENRY Facility:[facility] Start: 12-11-2021 ambulatory MARIE HENRY Facility: [facility] Start: 09-27-2021 End: 09-27-2021 ambulatory JOSHUA BAILEY Facility:[facility] Start: 08-11-2021 End: 08-11-[address] MARJAN HAILE Facility:[facility] Start: 09-22-2020 End: 09-22-2020 Patient encounter procedure Jaz Iglesias Work Phone: [facility] Start: 08-25-2020 End: 08-25-2020 Patient encounter procedure Jean-Claude Redmond [facility] Start: 02-12-2020 End: 02-13-2020 Patient encounter procedure BESSIE MOSES [facility] Start: 02-12-2020 End: 02-12-2020 Subsequent hospital visit by physician ARIADNA Kerr Start: 12-29-2019 End: 12-29-2019 Emergency department patient visit RAHEEL JACKSON [facility] Start: 12-29-2019 End: 12-29-2019 Emergency department patient visit Raheel Jackson Work Phone: [facility] Comment on above: Exposure to needle, [...] 08-17-2026 Tetanus vaccination Tetanus: Every 1 0yrs [facility] Start: 08-17-2026 Urine microalbumin profile DTaP,Tdap,Td Vaccine (2 - Td or Tdap) [facility] Start: 04-15-2023 Covid-19 Vaccine ( season) Covid-19 Vaccine ( season) [facility] Start: 04-15-2023 Influenza vaccination Influenza Vacc ine (#1) [facility] Start: 08-15-2022 Depression Assessment Depression Ass essment [facility] Start: 09-22-2020 COVID-19 Vaccine (Moderna) (#2) COVID-19 Vaccine (Moderna) (#2) [facility] Start: 09-22-2020 End: 09-22-2020 Immunization 09/22/2020 Immunization Primary Care Jaz Iglesias MD [address] [facility] [address] [place] [address] [phone] [facility] [employer] [facility] Start: 04-15-2020 Influenza vaccination M [place], [place] Start: 04-15-2020 Influenza vaccinatio n given Sequential Influenza Vaccine (#1) [facility] Start: 2013 HPV Testing HPV Testing [facility] Start: 2004 Pap Testing Pap Testing [facility] Start: 2001 Hepatitis C antibody , confirmatory test Hepatitis C Screening [facility] Start: 2001 Hepatitis C Screening Hepatitis C Sc reening [facility] Start: 2001 HIV Screening HIV Screening [facility] Start: 1998 HIV screening HIV Screening [facility] Start: 1995 Adolescent depressio n screening assessment Depression Screening (PHQ9) [facility] Start: 1989 Pneumococcal vaccination Pneumococcal Vaccine (1 - PCV) [facility] Start: 1986 History and physical examination, annual for health maintenance Wellness Visit [facility] Start: 1983 Creatinine measurement Creatinine mo nitoring [place], [place] Start: 1983 Hepatitis B Vaccine (1 of 3 - 3-dose series) Hepatitis B Vaccine (1 of 3 - 3-dose series) [facility] Start: 1983 Potassium monitoring Potassium monit oring [place], [place] Start: 1983 Screening for malign ant neoplasm of cervix Pap Smear [facility] Start: 1983 Tetanus vaccination Tetanus: Every 1 0yrs [facility] End: 02-12-2020 Covid-19 Ambulatory Covid-19 Ambulatory Lab Routine Once for 1 Occurrences starting 02/12/2020 until 02/12/2020 [place], [place] Comment on above: Once for 1 Occurrenc es starting 02/12/2020 until 02/12/2020 Covid-19 Ambulatory Covid-19 Amb ulatory Lab Routine 02/12/2020 7:08 AM EDT [place], [place] Immunizations Immunization Date Immunization Notes Care Provider Olamide chapa 06-04-2022 influenza virus vacc ine, unspecified formulation Priscilla Albert APRN.DATA ANALYTICS ANALYST Work Phone: [facility] 09-22-2020 Moderna SARS-CoV-2 Vaccination Lizbeth Mcclendon [facility] 08-25-2020 Moderna SARS-CoV-2 Vaccination Jean-Claude Redmond [facility] Payers Date Payer Category Payer Unknown [id number] 2019 Unknown 1985 Unknown [id number] [id number] 1983 Unknown [id number] 2.16.84 [id number] 1983 Unknown [id number] 2.16.84 [id number] 1983 Unknown [id number] 2.16.84 [id number] 1983 Unknown [id number] 2.16.84 [id number] 1983 Unknown [id number] 2.16.84 [id number] 1983 Unknown [id number] 2.16. [id number] 1983 Unknown [id number] 2.16. [id number] 1983 Unknown [id number] [id number]. [id number] 1961 Self-pay [id number] Social History Date Type Detail Facility Start: 12-29-2019 End: 07-15-2023 Tobacco smoking status NHIS Current every day smoker [facility] Start: 12-29-2019 End: 07-15-2023 Cigarettes smoked current (pack per day) - Reported [place], [place] Start: 12-29-2019 Alcohol intake Lifetime [facility]-d giovanny (finding[facility] Start: 12-29-2019 History SDOH Alcohol Frequency 1 [facility] Start: 1985 Sex Assigned At Not on file M [facility]ela [facility] Exposure to SARS-CoV -2 (event) Unable to assess [facility] Exposure to SARS-CoV -2 (event) Not sure [facility] History of tobacco use Cigarette Smoker [facility] Start: 07-15-2023 Tobacco use and exposure User of smokeless tobacco [facility] Start: 07-15-2023 Tobacco use panel [facility] Progress note 07-15-2023 Note Date & Type Note Facility 07-15-2023 Note HNO ID: [id number] Author: Priscilla Albert APRN.DATA ANALYTICS ANALYST Service: ? Author Type: Nurse Practitioner Type: [...] seek emergency care Gayatri Tony, MSN, RN- AUTOMOTIVE SERVICE PROFESSIONAL Student Gayatri Tony, student nurse practitioner, and myself have interviewed the patient. I re-performed the HPI and physical exam. Assessment and plan was developed together. I spent a total of 30 minutes on the date of the service which included preparing to see the patient, [id number] patient care, completing clinical documentation, obtaining and/or reviewing separately obtained history, performing a medically appropriate examination, counseling and educating the patient/family/caregiver, and ordering medications, tests, or procedures. Priscilla Albert APRN.[facility] History of Present illness Narrative 07-15-2023 Priscilla Albert APRN.DATA ANALYTICS ANALYST - 07/15/2023 1:49 PM EST Note Date [...] seek emergency care Gayatri Tony, MSN, RN-BC AUTOMOTIVE SERVICE PROFESSIONAL Student Gayatri Tony, student nurse practitioner, and myself have interviewed the patient. I re-performed the HPI and physical exam. Assessment and plan was developed together. I spent a total of 30 minutes on the date of the service which included preparing to see the patient, [id number] patient care, completing clinical documentation, obtaining and/or reviewing separately obtained history, performing a medically appropriate examination, counseling and educating the patient/family/caregiver, and ordering medications, tests, or procedures. Priscilla Albert APRN.DATA ANALYTICS ANALYST documented in this encounter [facility] Clinical Note 09-27-2021 Note Date & [...] by: RICARDO WEBB Date: 2021-09-27 13:13 [facility] Evaluation note Note Date & Type Note Facility Evaluation note Diagnosis Primary hypertension- Primary Unspecified essential hypertension documented in this encounter [facility] Discharge Instructions * Instructions* Crystal Little MD - 12/29/2019 Thank you for visiting [facility] Emergency Department. You need to call No primary care provider on file. to make an appointment as directed for follow up. Should you have any questions regarding your care or further treatment, please call [facility] Emergency Department at [phone]. 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 Advance Directives and Living Will [...] section and content) DATE CREATED AUTHOR 03/06/2020 [facility] DATE CREATED AUTHOR AUTHOR'S ORGANIZ ATION 01/30/2021 [facility] DATE CREATED AUTHOR AUTHOR'S ORGANIZ ATION 06/30/2022 [facility] DATE CREATED AUTHOR AUTHOR'S ORGANIZ ATION 08/26/2022 [facility] DATE CREATED AUTHOR AUTHOR'S ORGANIZ ATION 07/18/2023 [facility] DATE CREATED AUTHOR AUTHOR'S ORGANIZ ATION 07/23/2023 [facility] DATE CREATED AUTHOR AUTHOR'S ORGANIZ ATION 09/06/2023 [facility] Source Comments (unrecognize d section and content) In the event this informatio n is protected by the Federal Confidentiality of Alcohol and Drug Abuse Patient Records regulations: The Federal rules restrict any use of the information to criminally investigate or prosecute any alcohol or drug abuse patient.[facility] Care Teams (unrecognized sec tion and content) Merchandising Specialist 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 [facility]. provides no warranty or guarantee of the accuracy or completeness of information in this document.
--- NOTE | 2023-12-01 13:46 | PM.CN ---
Consult Note: HPI Data of Consult Patient: new to practice Consult date: 07/18/23 Requesting Physician: Lorna Herring NP Primary Care Provider: MARIE HENRY Consult Narrative Reason for consult: Low back pain, bilateral lower extremity pain Narrative: 38yof who presents for evaluation. worsening low back pain with radiation into lower extremities. continues in provider directed home exercise program >6 weeks >3x/week, has engaged in chiropractice therapy. no relief. imaging reviewed, which shows disc bulging with resultant stenosis at l4-5, l5-s1. has trialed gabapentin, mobic, robaxin, with limited benefit. denies adverse med side effects. Patient has reported improvement in pain and functional ability with tylenol #3 BID PRN, without side effects. Patient continues to take gabapentin 300mg BID, mobic 15mg daily. Patient reporting 50% improvement in pain since bilateral L4 TFESI and bilateral L5 TFESI. Pain today 4/10 aching constant pain, worse with sitting and activity. cc:: CC: Lorna Herring NP Review of Systems ROS Status of ROS 10 or more systems reviewed and unremarkable except as noted in history and below Musculoskeletal Reports: back pain and joint pain PFSH PFSH Social History Smoking status: Current every day smoker Meds Home Medications and Allergies Home Medications ?Medication ?Instructions ?Recorded ?Confirmed ?Type alprazolam 0.5 mg tablet 0.5 mg PO DAILY PRN sleep 06/16/23 08/22/23 History cariprazine 1.5 mg capsule 1.5 mg PO Q24H 06/16/23 08/22/23 History (Vraylar) citalopram 40 mg tablet 40 mg PO DAILY 06/16/23 08/22/23 History gabapentin 300 mg capsule 300 mg PO DAILY 06/16/23 08/22/23 History hydrochlorothiazide 25 mg tablet 25 mg PO DAILY 06/16/23 08/22/23 History lisinopril 20 mg tablet 20 mg PO DAILY 06/16/23 08/22/23 History metoprolol succinate 25 mg 25 mg PO DAILY 06/16/23 08/22/23 History tablet,extended release 24 hr acetaminophen 500 mg tablet 1,000 mg PO DAILY PRN pain 07/18/23 08/22/23 History (Acetaminophen Pain Relief) biotin 10,000 mcg capsule 10,000 mcg PO DAILY 07/18/23 08/22/23 History meloxicam 15 mg tablet 15 mg PO DAILY 07/18/23 08/22/23 History topiramate 50 mg tablet (Topamax) 50 mg PO BID 08/22/23 08/22/23 History acetaminophen 300 mg-codeine 30 mg 1 tab PO BID PRN pain #45 tabs 09/27/23 Rx tablet acetaminophen 300 mg-codeine 30 mg 1 tab PO BID PRN pain #45 tabs 09/28/23 Rx tablet nabumetone 750 mg tablet 750 mg PO BID PRN pain #14 tabs 10/13/23 Rx polyethylene glycol 3350 17 17 g PO DAILY 4 days #68 grams 10/13/23 Rx gram/dose oral powder (Miralax) acetaminophen 300 mg-codeine 30 mg 1 tab PO BID PRN pain #45 tabs 11/03/23 Rx tablet Allergies Allergy/AdvReac Type Severity Reaction Status Date / Time buspirone [From BuSpar] Allergy Severe Migraine Verified 10/13/23 03:28 sulfamethoxazole Allergy Severe Anaphylaxis Verified 10/13/23 03:28 [From Bactrim] trimethoprim [From Bactrim] Allergy Severe Anaphylaxis Verified 10/13/23 03:28 venlafaxine [From Effexor] Allergy Severe syncope Verified 10/13/23 03:28 oxycodone [From Percocet] AdvReac Severe Anxiety Verified 10/13/23 03:28 Exam Narrative Exam Narrative: Psych-alert and oriented x 3. Attentive and appropriate, constitutionally normal, displays normal mood and affect per situation. There are no obvious deficits in memory, reasoning, or intellect.? Skin-no obvious rashes, bruising, erythema noted to the patient's area of pain.? Extremities- extremities are warm with minimal edema and palpable pulses. Lumbar-tenderness to palpation noted in the lumbar spine and paraspinal musculature. Pain is elicited with flexion, extension, and lateral rotation of the lumbar spine. Range of motion is diminished with these motions. Facet loading maneuvers are positive.? Strength-noted to be unremarkable with the exception of decreased strength rated at 5 out of 5 in bilateral quadriceps femoris, anterior tibialis. Sensory-no notable sensory deficits in the bilateral lower extremities to touch or pinprick in all dermatomal distributions with the exception to decreased sensation to the left L4, 5 dermatomal distribution Coordination remains intact.? Gait remains non-antalgic. Back & Pelvis Sacroiliac joints: SI joint(s) abnormal Other: pain over left PSIS, pain with FABIRS/FADIRS/ thigh thrust and gaenslens. Assessment and Plan Assessment and Plan (1) Sacroiliitis: (2) Lumbar stenosis with neurogenic claudication: (3) Lumbar disc displacement without myelopathy: (4) Chronic prescription opiate use: Assessment and Plan: I feel these medications are improving the patient's quality of life and allow them to tolerate activities of daily living as well as participate in recreational activity.? The patient does not report intolerable side effects. The patient is NOT opioid naive and non-pharmacologic and non-opioid treatment has failed to significantly relieve the patient's pain and improve functionality. The patient has a diagnosis that is related to a somatic or visceral pain etiology. ? ?? I reviewed with the patient the potential risks and side effects with the use of? opioid medications including but not limited to respiratory depression,? sedation, and even . I verified the patient has access to naloxone should? these effects occur. I advised the patient to avoid the use of any other? sedation substances including alcohol, THC, and benzodiazepines while? taking opioid medications due to the risk of compounding side effects and? detrimental outcomes. I reviewed the CHIEF PORT DIRECTOR, pain treatment agreement, urine? drug screen, and opioid start talking forms. The patient was advised to let? their family know they had Naloxone in case they would need to administer? the medication.? ?? A drug screen was completed within the last year, and no aberrancies were noted regarding their use of controlled substances. The patient understands they are subject to the terms and conditions of the pain contract that they have signed. ? ?? I have checked an [place] report on this patient today and there are no aberrancies noted in the prescribing history.? Plan left SIJ injection under fluoroscopy, pt to call to schedule discussed xanax, patient agreeable to stopping xanax and continuing tylenol #3 BID PRN moderate to severe pain 45 tabs/month f/u after SIJ injection or 3 months for medication management
== END 2023-12-01 13:09 | disposition home or self-care (01) ==
LOC: PM 13:09
PROVIDERS: PCP Nurse Practitioner Family; Visit Provider Nurse Practitioner
DX: M46.1 Sacroiliitis, not elsewhere classified (principal); Z79.899 Other long term (current) drug therapy; M51.26 Other intervertebral disc displacement, lumbar region; M48.062 Spinal stenosis, lumbar region with neurogenic claudication
CPT/HCPCS: G0463

== ENCOUNTER 2024-02-23 13:20 | Outpatient (OUT) | payer OTHER, SELFPAY ==
--- NOTE | 2024-02-23 14:06 | P.CN_ITS ---
Consult Note: HPI Data of Consult Patient: known to practice within the last 3 years Consult date: 07/18/23 Requesting Physician: Lorna Herring NP Primary Care Provider: MARIE HENRY Consult Narrative Reason for consult: Low back pain, bilateral lower extremity pain Narrative: 38yof who presents for evaluation. worsening low back pain with radiation into lower extremities. continues in provider directed home exercise program >6 weeks >3x/week, has engaged in chiropractice therapy. no relief. imaging reviewed, [facility] shows disc bulging with resultant stenosis at l4-5, l5-s1. has trialed gabapentin, mobic, robaxin, gabapentin, tylenol with limited benefit. denies adverse med side effects. Patient has reported improvement in pain and functional ability with tylenol #3 BID PRN, without side effects. Patient reporting >50% improvement in pain since bilateral L4 TFESI and bilateral L5 TFESI greater than 3 months but has since worn off. Patient rating pain 10/10 in low back radiating down bilateral legs, left greater than right. Reports heaviness/weakness in BLE. Pain increased with all activity and improved with lying down and heat. cc:: CC: Lorna Herring NP Review of Systems ROS Status of ROS 10 or more systems reviewed and unremark able except as noted in history and below Musculoskeletal Reports: back pain and extremity pain PFSH PFSH Social History Smoking status: Current every day smoker Meds Home Medications and Allergies Home Medications ?Medication ?Instructions ?Recorded ?Confirmed ?Type alprazolam 0.5 mg tablet 0.5 mg PO DAILY PRN sleep 06/16/23 08/22/23 History cariprazine 1.5 mg capsule 1.5 mg PO Q24H 06/16/23 08/22/23 History (Vraylar) citalopram 40 mg tablet 40 mg PO DAILY 06/16/23 08/22/23 History gabapentin 300 mg capsule 300 mg PO DAILY 06/16/23 08/22/23 History hydrochlorothiazide 25 mg tablet 25 mg PO DAILY 06/16/23 08/22/23 History lisinopril 20 mg tablet 20 mg PO DAILY 06/16/23 08/22/23 History metoprolol succinate 25 mg 25 mg PO DAILY 06/16/23 08/22/23 History tablet,extended release 24 hr acetaminophen 500 mg tablet 1,000 mg PO DAILY PRN pain 07/18/23 08/22/23 History (Acetaminophen Pain Relief) biotin 10,000 mcg capsule 10,000 mcg PO DAILY 07/18/23 08/22/23 History meloxicam 15 mg tablet 15 mg PO DAILY 07/18/23 08/22/23 History topiramate 50 mg tablet (Topamax) 50 mg PO BID 08/22/23 08/22/23 History acetaminophen 300 mg-codeine 30 mg 1 tab PO BID PRN pain #45 tabs 09/27/23 Rx tablet acetaminophen 300 mg-codeine 30 mg 1 tab PO BID PRN pain #45 tabs 09/28/23 Rx tablet nabumetone 750 mg tablet 750 mg PO BID PRN pain #14 tabs 10/13/23 Rx polyethylene glycol 3350 17 17 g PO DAILY 4 days #68 grams 10/13/23 Rx gram/dose oral powder (Miralax) acetaminophen 300 mg-codeine 30 mg 1 tab PO BID PRN pain #45 tabs 11/03/23 Rx tablet acetaminophen 300 mg-codeine 30 mg 1 tab PO BID PRN pain #45 tabs 01/06/24 Rx tablet acetaminophen 300 mg-codeine 30 mg 1 tab PO BID PRN pain #45 tabs 02/10/24 Rx tablet Allergies Allergy/AdvReac Type Severity Reaction Status Date / Time buspirone [From BuSpar] Allergy Severe Migraine Verified 10/13/23 03:28 sulfamethoxazole Allergy Severe Anaphylaxis Verified 10/13/23 03:28 [From Bactrim] trimethoprim [From Bactrim] Allergy Severe Anaphylaxis Verified 10/13/23 03:28 venlafaxine [From Effexor] Allergy Severe syncope Verified 10/13/23 03:28 oxycodone [From Percocet] AdvReac Severe Anxiety Verified 10/13/23 03:28 Exam Narrative Exam Narrative: Psych-alert and oriented x 3. Attentive and appropriate, constitutionally normal, displays normal mood and affect per situation. There are no obvious deficits in memory, reasoning, or intellect.? Skin-no obvious rashes, bruising, erythema noted to the patient's area of pain.? Extremities- extremities are warm with minimal edema and palpable pulses. Lumbar-tenderness to palpation noted in the lumbar spine and paraspinal musculature. Pain is elicited with flexion, extension, and lateral rotation of the lumbar spine. Range of motion is diminished with these motions. Facet loading maneuvers are positive.? Sacroiliac- bialteral positive klaus(patricks), gaenslens, thigh thrust, compression test Strength-noted to be unremarkable with the exception of decreased strength rated at 5 out of 5 in bilateral quadriceps femoris, anterior tibialis. Sensory-no notable sensory deficits in the bilateral lower extremities to touch or pinprick in all dermatomal distributions with the exception to decreased sensation to the left and right L4, 5 dermatomal distribution Coordination remains intact.? Gait remains non-antalgic. Constitutional Documenting provider has reviewed patient's vital signs: yes Common normals: no apparent distress, oriented x3, healthy appearing, alert and well nourished General appearance: cooperative HENMT Common normals: normocephalic, hearing grossly normal bilaterally and moist oral mucous membranes Head and scalp: normocephalic Eye Common normals: PERRL Pupil: PERRL Neck & C-Spine Common normals: full ROM General: normal visual inspection Chest Common normals: inspection of chest normal Respiratory Common normals: normal respiratory effort, no retractions and no use of accessory muscles Back & Pelvis Sacroiliac joints: SI joint(s) abnormal Other: pain over left PSIS, pain with FABIRS/FADIRS/ thigh thrust and gaenslens. Neuro Common normals: oriented x3, CN's II-XII intact bilaterally, moves all extremities, no focal motor deficits, no sensory deficits noted and deep tendon reflexes 2+ bilaterally Sensorium/orientation: alert Motor exam: strength 5/5 throughout and no movement abnormalities noted Psych Common normals: mental status grossly normal, thought process normal, cooperative, affect normal, speech normal and activity/motor behavior normal Speech: normal speech Thought process: normal thought process Results Additional Findings Additional findings: If on a controlled substance or opioids, I have checked an [place] report on this patient and there are no aberrancies noted in the prescribing history.??If on a controlled substance or opioid a drug screen was completed and reviewed within the last year, and if there has not been a drug screen completed we ordered one today to monitor higher risk, state monitored pain medication use. As part of providing excellent, safe, comprehensive care, the following was completed at our patient's visit: 1. A medication reconciliation and review to ensure accurate knowledge of current/active medications, including asking our patients to inform us about any [id number] medications or herbal remedies/nutritional supplements/alternative remedies. 2. A review to specifically ensure our patients have had annual screening for screening for depression, screening for tobacco use, and screening for unhealthy alcohol use. For concerning screenings had a discussion with the patient, provided patient education, and recommended follow-up with primary care provider when appropriate. If patient noted with a risk of falling, they received education on strength, gait, and balance training to prevent future risk of falling. Assessment and Plan Assessment and Plan (1) Lumbar stenosis with neurogenic claudication: (2) Lumbar disc displacement without myelopathy: (3) Chronic prescription opiate use: Assessment and Plan: I feel these medications are improving the patient's quality of life and allow them to tolerate activities of daily living as well as participate in recreational activity.? The patient does not report intolerable side effects. The patient is NOT opioid naive and non-pharmacologic and non-opioid treatment has failed to significantly relieve the patient's pain and improve functionality. The patient has a diagnosis that is related to a somatic or visceral pain etiology. ? ?? I reviewed with the patient the potential risks and side effects with the use of? opioid medications including but not limited to respiratory depression,? sedation, and even . I verified the patient has access to naloxone should? these effects occur. I advised the patient to avoid the use of any other? sedation substances including alcohol, THC, and benzodiazepines while? taking opioid medications due to the risk of compounding side effects and? detrimental outcomes. I reviewed the [employer], pain treatment agreement, urine? drug screen, and opioid start talking forms. The patient was advised to let? their family know they had Naloxone in case they would need to administer? the medication.? ?? A drug screen was completed within the last year, and no aberrancies were noted regarding their use of controlled substances. The patient understands they are subject to the terms and conditions of the pain contract that they have signed. ? ?? I have checked an [place] report on this patient today and there are no aberrancies noted in the prescribing history.? (4) Sacroiliitis: Plan repeat bilateral L4-5 TFESI under fluoroscopy followed by bilateral L5-S1 TFESI under fluoroscopy. risks vs benefits reviewed. pt notes >50% improvement in pain and functional ability for 3 months from prior injections increase gabapentin 600mg BID continue tylenol #3 BID PRN moderate to severe pain #45 tabs/month continue mobic/tylenol PRN f/u after procedures complete
== END 2024-02-23 13:21 | disposition home or self-care (01) ==
LOC: PM 13:22
PROVIDERS: PCP Nurse Practitioner Family; Visit Provider Nurse Practitioner
DX: M48.062 Spinal stenosis, lumbar region with neurogenic claudication (principal); M51.26 Other intervertebral disc displacement, lumbar region; Z79.899 Other long term (current) drug therapy
CPT/HCPCS: G0463

== ENCOUNTER 2024-03-01 11:00 | Outpatient (OUT) | payer OTHER, SELFPAY ==
--- OUTSIDE RECORDS SUMMARY | 2024-03-01 10:07 | XMS_ITS | CCD ---
Author Organization [facility] Care Team Providers Care Supervisor Mechanic Boilermaking Name Role Phone Unavailable Primary Care Provider [...] / oxyCODONE Drug Allergy 04-21-20 18 Itching [place], [place] (3 sources) busPIRone Drug Allergy 04-21-20 18 Other: See Comments [place], [place] (3 sources) Sulfamethoxazole / Trimethoprim Drug Allergy 04-21-20 18 Anaphylaxis [place] (2 sources) Acetaminophen / oxyCODONE; 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: [Percocet] Drug Allergy 08-15-[address] [facility] (2 sources) Adhesive agent Drug allergy (disorder) 11-28-[address] [facility] (3 sources) busPIRone; 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: [BuSpar] Drug Allergy 08-07-[address] [facility] (2 sources) Latex; 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: [Latex] Drug allergy (disorder) [facility] (1 source) Sulfamethoxazole / Trimethoprim Drug Allergy [facility] (1 source) venlafaxine Drug Allergy 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] Onset: 06-30-2022 Episodic [...] Interpretation Reference Range Facility [facility] 07-21-2023 Consent [id number] F [facility] In office Testingon 07-21-20 In office Testing [id number] FF [facility] Registrationon 07-21-2023 Registration [id number] F [facility] CNOVon 07-15-2023 CNOV Office Visit (WALKMN ) -------- SILVER ANDUJAR ([id number]) 1985 F Date Time Provider Department 07/15/23 1:45 PM PRISCILLA ALBERT WALKMD During your visit today, we recorded the following information about you: Temperature Pulse Blood pressure 98 degrees 89/minute 131/81 Priscilla Albert APRN.PREPLEATER 07/15/2023 4:34 PM Signed CC: Headache and high BP HPI: Silver Andujar is a 37 year old female who presents to the [facility] walk in clinic for the above chief [...] seek emergency care Gayatri Tony, MSN, RN- COMBINATION OPERATOR Student Gayatri Tony, student nurse practitioner, and myself have interviewed the patient. I re-performed the HPI and physical exam. Assessment and plan was developed together. I spent a total of 30 minutes on the date of the service which included preparing to see the patient, [id number] patient care, completing clinical documentation, obtaining and/or reviewing separately obtained history, performing a medically appropriate examination, counseling and educating the patient/family/caregiver , and ordering medications, tests, or procedures. Priscilla Albert APRN.PREPLEATER Referring Provider: SELF [[id number]] Allergies As of Date: 07/15/2023 Noted Allergy Reaction BUSPIRONE 04/21/2018 14 - Other: See Comments OXYCODONE-ACETAMINOPHEN 04/21/2018 9 - Itching SULFAMETHOXAZOLE-TRIMETH OPRIM 04/21/2018 10 - Anaphylaxis Date Reviewed: 07/15/2023 Reviewed by: Prisiclla Albert APRN.PREPLEATER - Fully Assessed Reason for Visit: Headache [...] Status:Closed by PRISCILLA ALBERT on 07/15/23 Normal [facility] DUP LOWER EXTREMITY RIGHT VENon 08-26-2022 DUP [...] Henrry Sweeney MD 08/26/[address] [facility] Comment on above: Order Comment: Reaso [...] Henrry Sweeney MD 08/26/[address] [facility] Comment on above: Order Comment: Reaso [...] RICARDO WEBB Date: 2022-06-28 14:[address] [facility] CULTURE URINEon 12-22-2021 CULTURE URINE Culture Observations : MODERATE GROWTH OF MIXED SKIN CHARLY. NO POTENTIAL PATHOGENS SEEN. Normal [facility] Comment on above: Performed By: #### U RCX #### [facility] [address] [place] [address] Dr. Reba Swain CBC W MANUAL DIFFon 12-22-19 22 ATYPICAL LYMPH # Normal [facility] Comment on above: Performed By: #### C BCMAN #### [facility] [address] [address] [address] Reba Swain ATYPICAL LYMPH % Normal [facility] Comment on above: Performed By: #### C BCMAN #### [facility] [address] [address] [address] Reba Swain BAND # Normal 0.0-0.3 [facility] Comment on above: Performed By: #### C BCMAN #### [facility] [address] [place] [address] Dr. Reba Swain BAND % Normal 0-5 [facility] Comment on above: Performed By: #### C BCNIKI #### [facility] [address] [place] [address] Dr. Reba Swain BASOM # 0.08 103/ul Normal 0.00-0.10 [facility] Comment on above: Performed By: #### C BCNIKI #### [facility] [address] [place] [address] Dr. Reba Swain BASOM % 1.0 % Normal 0.2-2.0 [facility] Comment on above: Performed By: #### C TRAMAINE #### [facility] [address] [place] [address] Dr. Reba Swain BLAST # Normal [facility] Comment on above: Performed By: #### C TRAMAINE #### [facility] [address] [place] [address] Dr. Reba Swain BLAST % Normal [facility] Comment on above: Performed By: #### C TRAMAINE #### [facility] [address] [place] [address] Dr. Reba Swain CORRECTED WBC Normal 4.0-11.0 The [facility] Comment on above: Performed By: #### C TRAMAINE #### [facility] [address] [place] [address] Dr. Reba Swain EOS # 0.08 103/ul Normal 0.00-0.70 [facility] Comment on above: Performed By: #### C BCNIKI #### [facility] [address] [place] [address] Dr. Reba Swain EOS% 1.0 % Normal 0.9-7.0 [facility] Comment on above: Performed By: #### C TRAMAINE #### [facility] [address] [place] [address] Dr. eRba Swain HCT 42.3 % Normal 36.0-48.[address] [facility] Comment on above: Performed By: #### C BCNIKI #### [facility] [address] [address] [address] Reba Swain HGB 14.0 g/dl Normal 12.0-16.0 [facility] Comment on above: Performed By: #### C TRAMAINE #### [facility] [address] [address] [address] Reba Swain LYMPHM # 0.83 103/ul Critically low 1.20-3.80 [facility] Comment on above: Performed By: #### C TRAMAINE #### [facility] [address] [address] [address] Reba Swain LYMPHM% 10.0 % Critically low 20.5-60.0 [facility] Comment on above: Performed By: #### C TRAMAINE #### [facility] [address] [place] [address] Dr. Reba Swain MCH 30.6 pg Normal 26.7-34.0 [facility] Comment on above: Performed By: #### C TRAMAINE #### [facility] [address] [place] [address] Dr. Reba Swain MCHC 33.1 g/dl Normal 29.9-35.2 [facility] Comment on above: Performed By: #### C TRAMAINE #### [facility] [address] [place] [address] Dr. Reba Swain MCV 92.4 fL Normal 81.0-99.0 [facility] Comment on above: Performed By: #### C BCNIKI #### [facility] [address] [place] [address] Dr. Reba Swain METAMYELOCYTE # Normal [facility] Comment on above: Performed By: #### C BCNIKI #### [facility] [address] [place] [address] Dr. Reba Swain METAMYELOCYTE % Normal [facility] Comment on above: Performed By: #### C TRAMAINE #### [facility] [address] [place] [address] Dr. Reba Swain MONOM# 0.25 103/ul Critically low 0.30-0.80 [facility] Comment on above: Performed By: #### C TRAMAINE #### [facility] [address] [place] [address] Dr. Reba Swain MONOM% 3.0 % Normal 1.7-12.0 [facility] Comment on above: Performed By: #### C TRAMAINE #### [facility] [address] [place] [address] Dr. Reba Swain MPV 10.3 fL Normal 9.5-13.5 [facility] Comment on above: Performed By: #### C TRAMAINE #### [facility] [address] [place] [address] Dr. Reba Swain MYELOCYTE # Normal [facility] Comment on above: Performed By: #### C TRAMAINE #### [facility] [address] [place] [address] Dr. Reba Swain MYELOCYTE % Normal [facility] Comment on above: Performed By: #### C TRAMAINE #### [facility] [address] [place] [address] Dr. Reba Swain NRBC Normal [facility] Comment on above: Performed By: #### C TRAMAINE #### [facility] [address] [place] [address] Dr. Reba Swain PLT 190 103/ul Normal 150-450 [facility] Comment on above: Performed By: #### C TRAMAINE #### [facility] [address] [place] [address] Dr. Reba Swain RBC 4.58 106/ul Normal 4.20-5.40 [facility] Comment on above: Performed By: #### C TRAMAINE #### [facility] [address] [place] [address] Dr. Reba Swain RDW 13.3 % Normal 11.0-15.0 [facility] Comment on above: Performed By: #### C TRAMAINE #### [facility] [address] [place] [address] Dr. Reba Swain SEG # 7.06 103/ul Critically high 1.40-6.50 [facility] Comment on above: Performed By: #### Lexie REDD #### [facility] [address] [place] [address] Dr. Reba Swain SEG % 85.0 % Critically high 43.0-75.0 [facility] Comment on above: Performed By: #### Lexie REDD #### [facility] [address] [place] [address] Dr. Reba Swain WBC 8.3 103/ul Normal 4.0-11.0 [facility] Comment on above: Performed By: #### Lexie REDD #### [facility] [address] [place] [address] HEAD WO CONon [...] Joe SO Date: 2021-12-21 19:[address] [facility] ER URINE PROFILEon 2 Bilirubin Ql (U) Negative Normal NEGATIVE [facility] Comment on above: Performed By: #### ESTEPHANIA HUTCHISON #### [facility] [address] [place] [address] Dr. Reba Swain Clarity (U) CLEAR Normal CLEAR [facility] Comment on above: Performed By: #### ESTEPHANIA HUTCHISON #### [facility] [address] [place], [place] [id number] Dr. Reba Swain Color (U) YELLOW Normal YELLOW [facility] Comment on above: Performed By: #### Amy CONTRERAS UMICRO #### [facility] [address] [address] [address] Reba CHAUDHRY A micrscopic examina tion will be performed if indicated. Normal [facility] Comment on above: Performed By: #### Amy CONTRERAS UMICRO #### [facility] [address] [address] [address] Reba Swain Glucose Ql (U) Negative Normal NEGATIVE [facility] Comment on above: Performed By: #### Amy CONTRERAS UMICRO #### [facility] [address] [address] [address] Reba Swain Hemoglobin Ql (U) Negative Normal NEGATIVE [facility] Comment on above: Performed By: #### Amy CONTRERAS UMICRO #### [facility] [address] [place] [address] Dr. Reba Swain Ketones Ql (U) Negative Normal NEGATIVE [facility] Comment on above: Performed By: #### Amy CONTRERAS UMICRO #### [facility] [address] [place] [address] Dr. Reba Swain LEUKOCYTES Negative Normal NEGATIVE [facility] Comment on above: Performed By: #### Amy CONTRERAS UMICRO #### [facility] [address] [place] [address] Dr. Reba Swain Nitrite Ql (U) Negative Normal NEGATIVE [facility] Comment on above: Performed By: #### Amy CONTRERAS UMICRO #### [facility] [address] [place] [address] Dr. Reba Swain pH (U) 7.0 [pH] Normal 5-[address] [facility] Comment on above: Performed By: #### Amy CONTRERAS UMICRO #### [facility] [address] [place] [address] Dr. Reba Swain Protein (U) [Mass/Vol] 100 mg/dL Abnormal NEGATIVE/ TRACE [facility] Comment on above: Performed By: #### Amy CONTRERAS UMICRO #### [facility] [address] [place] [address] Dr. Reba Swain SPEC GRAVITY 1.025 Normal 1.005-<=1.025 [facility] Comment on above: Performed By: #### ESTEPHANIA HUTCHISON #### [facility] [address] [place] [address] Dr. Reba Swain UR MICRO IND INDICATED Normal [facility] Comment on above: Performed By: #### ESTEPHANIA HUTCHISON #### [facility] [address] [place] [address] Dr. Reba Swain Urobilinogen Qn (U) 0.2 {Tamia'U}/dL Normal 0.2 - 1. [address] [facility] Comment on above: Performed By: #### ESTEPHANIA HUTCHISON #### [facility] [address] [place] [address] Dr. Reba Swain PROF CHEM 8 (BAS METB)on Anion gap [Moles/Vol] 14.8 mmol/L Normal [facility] Comment on above: Performed By: #### B MP #### [facility] [address] [place] [address] Dr. Reba Swain Calcium [Mass/Vol] 8.5 mg/dL Normal 8.5-10.1 [facility] Comment on above: Performed By: #### B MP #### [facility] [address] [place] [address] Dr. Reba Swain Chloride [Moles/Vol] 100 mmol/L Normal 98-[address] [facility] Comment on above: Performed By: #### B MP #### [facility] [address] [place] [address] Dr. Reba Swain CO2 [Moles/Vol] 23.7 mmol/L Normal 21.0-32.0 [facility] Comment on above: Performed By: #### B MP #### [facility] [address] [place] [address] Dr. Reba Swain Creatinine [Mass/Vol] 0.79 mg/dL Normal 0.55-1.02 [facility] Comment on above: Performed By: #### B MP #### [facility] [address] [address] [address] Reba Swain EGFR-AF NIGERIAN >60 Normal >=60 [facility] Comment on above: Performed By: #### B MP #### [facility] [address] [address] [address] Reba Swain EGFR-NON AF NIGERIAN >60 Normal >=60 [facility] Comment on above: Performed By: #### B MP #### [facility] [address] [address] [address] Reba Swain Glucose [Mass/Vol] 107 mg/dL Critically high 74-106 [facility] Comment on above: Performed By: #### B MP #### [facility] [address] [address] [address] Reba Swain Potassium [Moles/Vol] 3.5 mmol/L Normal 3.5-5.1 [facility] Comment on above: Performed By: #### B MP #### [facility] [address] [address] [address] Reba Swain Sodium [Moles/Vol] 135 mmol/L Critically low 136-145 Th [facility] Comment on above: Performed By: #### B MP #### [facility] [address] [address] [address] Reba Swain Urea nitrogen [Mass/Vol] 9.0 mg/dL Normal 7.0-18.0 [facility] Comment on above: Performed By: #### B MP #### [facility] [address] [address] [address] Reba Swain Urea nitrogen/Creatinine [Mass ratio] 11.4 mg/mg Normal [facility] Comment on above: Performed By: #### B MP #### [facility] [address] [address] [address] Reba Swain TROPONIN, HIGH SENSITIVITYon 12-21-2021 HSTROP 4.3 pg/mL Normal 4.0-51.3 [facility] Comment on above: Result Comment: CUT- OFF POINTS HAVE BEEN ESTABLISHED BASED ON THE FOURTH UNIVERSAL DEFINITIONS OF MYOCARDIAL INFARCTION. THE UPPER REFERENCE LIMIT (URL) OF TROPONIN, DEFINED THE 99TH PERCENTILE OF cTnI DISTRIBUTION IN A REFERENCE POPULATION, HAS BEEN CONFIRMED THE DECISION THRESHOLD FOR LA DIAGNOSIS. Performed By: #### H STROPN #### [facility] [address] [place] [address] Dr. Reba Swain URINE MICROSCOPIC ONLYon BACTERIA SMALL Abnormal NONE SEEN [facility] Comment on above: Performed By: #### E RUR, UMICRO #### [facility] [address] [place] [address] Dr. Reba Swain Bacteria identified Cx Nom (U) INDICATED Normal [facility] Comment on above: Performed By: #### E BESTR, UMICRO #### [facility] [address] [place] [address] Dr. Reba Swain CAST SEEN Abnormal NONE SEEN [facility] Comment on above: Performed By: #### E DIANE UMICRO #### [facility] [address] [place] [address] Dr. Reba Swain Crystals LM Nom (Urine sed) NONE SEEN Normal NONE SEEN [facility] Comment on above: Performed By: #### Amy CONTRERAS UMICRO #### [facility] [address] [place] [address] Dr. Reba Swain Epithelial cells LM Ql (Urine sed) FEW Abnormal NONE SEEN /RARE [facility] Comment on above: Performed By: #### Amy CONTRERAS UMICRO #### [facility] [address] [place] [address] Dr. Reba Swain MUCOUS TRACE Abnormal NONE SEEN [facility] Comment on above: Performed By: #### E RUR, UMICRO #### [facility] [address] [place] [address] Dr. Reba Swain RBC 0-2 Normal 0-[address] [facility] Comment on above: Performed By: #### E RUR, UMICRO #### [facility] [address] [place] [address] Dr. Reba Swain WBC 2-5 Abnormal NONE SEEN [facility] Comment on above: Performed By: #### E RUR, UMANANDABELARDO #### [facility] [address] [address] [address] Reba Swain XR lumbar spine min 4V*on XR lumbar spine min 4V* [facility] [place] [address] [place] [id number] XRay Report Signed Patient: Silver Andujar MR#: [id number] : 1985 Acct:[id number] Age/Sex: 35 / F ADM Date: 01/14/21 Loc: [place] Room: Type: REG CLI Attending Dr: Madonna Torrez NP Ordering [...] Sweeney Jr., M.D.01/14/2021 6:46 PM Dictation Location: [place] [address] Transcribed By: [place] 01/14/211845 Dictated By: Henrry Sweeney Jr, MD 01/14/211840 Signed By: 01/14/211845 Normal [facility] [id number] 02-16-2020 SARS-CoV-2 Not Detected Normal Not Detected [facility] Comment on above: Result Comment: (NOT E) Testing was performed using the Aptima SARS-CoV-2 assay. This test was developed and its performance characteristics determined by [facility]. This test has not been FDA cleared [...] result in this assay. Performed At: = [facility] [id number] Macy Ortega MD Ph:[phone] Performed By: #### A COV #### [facility] [address] [place] [id number] Mathematical Engineer: Bronson Webster MD Vital Signs Date Time Vital Sign Value Performing Clinician Facility 07-15-2023 13:44-0500 Body temperature 98.01 [degF] Priscilla Albert APRN.CNP Work Phone: [facility] 07-15-2023 13:44-0500 Diastolic blood pressure 81 mm[Hg] Priscilla Albert APRN.PREPLEATER Work Phone: [facility] 07-15-2023 13:44-0500 Heart rate 89 /min Priscilla Albert APRN.PREPLEATER Work Phone: [facility] 07-15-2023 13:44-0500 Systolic blood pressure 131 mm[Hg] Priscilla Albert APRN.PREPLEATER Work Phone: [facility] 12-29-2019 05:16-0400 BMI (Body Mass Index) 37.24 kg/m2 Raheel Ruchi [facility] [place], [place] 12-29-2019 05:16-0400 Body Temperature 97.3 [degF] [facility] [place] 12-29-2019 05:16-0400 Body weight 121.11 kg Raheel Jackson [employer] [place], [place] 12-29-2019 05:16-0400 BP Diastolic 65 mm[Hg] [facility] [place] [place] 12-29-2019 05:16-0400 BP Systolic 114 mm[Hg] Raheel Jackson [employer] [place] 12-29-2019 05:16-0400 Height 180.3 cm [facility] [place] 12-29-2019 05:16-0400 Pulse (Heart Rate) 60 /min [facility] [place] 12-29-2019 05:16-0400 Pulse Oximetry 97 % [facility] [place] 12-29-2019 05:16-0400 Respiratory Rate 18 /min [facility] [place] Encounters Encounter Date Encounter Type Care Provider Facility Start: 08-22-2023 End: 08-23-2023 ambulatory Rony Daniels MD Facility: [place] Start: 08-01-2023 End: 08-02-2023 ambulatory Rony Daniels MD Facility: [place] Start: 07-21-2023 End: 07-22-2023 ambulatory Laurel ALEXANDER Facility:[facility] Start: 07-18-2023 End: 07-19-2023 ambulatory Rony Daniels MD Facility: [place] Start: 07-15-2023 End: 07-15-2023 ambulatory HENRRY VARGAS Facility:[facility] Start: 07-15-2023 End: 07-15-2023 Patient encounter procedure Priscilla Albert APRN.PREPLEATER Work Phone: [facility] Comment on above: Primary hypertension (Primary Dx) Start: 08-26-2022 End: 08-26-2022 [facility]: 06-28-2022 End: 06-28-2022 ambulatory MARIE HENRY Facility: Start: 12-21-2021 End: 12-21-2021 ambulatory MARIE HENRY Facility: Start: 12-11-2021 ambulatory MARIE HENRY Facility: [facility] Start: 09-27-2021 End: 09-27-2021 ambulatory JOSHUA BAILEY Facility:[facility] Start: 08-11-2021 End: 08-11-[address] MARJAN HAILE Facility:[facility] Start: 09-22-2020 End: 09-22-2020 Patient encounter procedure Jaz Iglesias Work Phone: [facility] Start: 08-25-2020 End: 08-25-2020 Patient encounter procedure Jean-Claude Redmond [facility] Start: 02-12-2020 End: 02-13-2020 Patient encounter procedure DUKECherie AURELIA [facility] Start: 02-12-2020 End: 02-12-2020 Subsequent hospital visit by physician ARIADNA Kerr Start: 12-29-2019 End: 12-29-2019 Emergency department patient visit RAHEEL JACKSON [facility] Start: 12-29-2019 End: 12-29-2019 Emergency department patient visit Raheel Jackson Work Phone: [facility] Comment on above: Exposure to needle, [...] 08-17-2026 Tetanus vaccination Tetanus: Every 1 0yrs [facility] Start: 08-17-2026 Urine microalbumin profile DTaP,Tdap,Td Vaccine (2 - Td or Tdap) [facility] Start: 04-15-2023 Covid-19 Vaccine (2022- season) Covid-19 Vaccine ( season) [facility] Start: 04-15-2023 Influenza vaccination Influenza Vacc ine (#1) [facility] Start: 01-01-2023 Depression Assessment Depression Ass essment [facility] Start: 09-22-2020 COVID-19 Vaccine (Moderna) (#2) COVID-19 Vaccine (Moderna) (#2) [facility] Start: 09-22-2020 End: 09-22-2020 Immunization 09/22/2020 Immunization Primary Care Jaz Iglesias MD [address] [facility] [address] [place] [address] [phone] [facility] [employer] [facility] Start: 04-15-2020 Influenza vaccination [place] Start: 04-15-2020 Influenza vaccinatio n given Sequential Influenza Vaccine (#1) [facility] Start: 2013 HPV Testing HPV Testing [facility] Start: 2004 Pap Testing Pap Testing [facility] Start: 2001 Hepatitis C antibody , confirmatory test Hepatitis C Screening [facility] Start: 2001 Hepatitis C Screening Hepatitis C Sc reening [facility] Start: 2001 HIV Screening HIV Screening [facility] Start: 1998 HIV screening HIV Screening [facility] Start: 1995 Adolescent depressio n screening assessment Depression Screening (PHQ9) [facility] Start: 1989 Pneumococcal vaccination Pneumococcal Vaccine (1 - PCV) [facility] Start: 1986 History and physical examination, annual for health maintenance Wellness Visit [facility] Start: 1983 Creatinine measurement Creatinine mo nitoring [place], [place] Start: 1983 Hepatitis B Vaccine (1 of 3 - 3-dose series) Hepatitis B Vaccine (1 of 3 - 3-dose series) [facility] Start: 1983 Potassium monitoring Potassium monit oring [place], [place] Start: 1983 Screening for malign ant neoplasm of cervix Pap Smear [facility] Start: 1983 Tetanus vaccination Tetanus: Every 1 0yrs [facility] End: 02-12-2020 Covid-19 Ambulatory Covid-19 Ambulatory Lab Routine Once for 1 Occurrences starting 02/12/2020 until 02/12/2020 [place], [place] Comment on above: Once for 1 Occurrenc es starting 02/12/2020 until 02/12/2020 Covid-19 Ambulatory Covid-19 Amb ulatory Lab Routine 02/12/2020 7:08 AM EDT [place], [place] Immunizations Immunization Date Immunization Notes Care Provider Olamide chapa 06-04-2022 influenza virus vacc ine, unspecified formulation Priscilla Albert APRN.PREPLEATER Work Phone: [facility] 09-22-2020 Moderna SARS-CoV-2 Vaccination Lizbeth Mcclendon [facility] 08-25-2020 Moderna SARS-CoV-2 Vaccination Jean-Claude Redmond [facility] Payers Date Payer Category Payer Unknown [id number] 2019 Unknown 1985 Unknown [id number] 2.16.8 [id number] 1983 Unknown [id number] 2.16.84 [id number] 1983 Unknown [id number] 2.16.84 [id number] 1983 Unknown [id number] 2.16.84 [id number] 1983 Unknown [id number] 2.16.84 [id number] 1983 Unknown [id number] 2.16.84 [id number] 1983 Unknown [id number] 2.16. [id number] 1983 Unknown [id number] 2.16. [id number] 1983 Unknown [id number] 2.16. [id number] 1961 Self-pay [id number] Social History Date Type Detail Facility Start: 12-29-2019 End: 07-15-2023 Tobacco smoking status NHIS Current every day smoker [facility] Start: 12-29-2019 End: 07-15-2023 Cigarettes smoked current (pack per day) - [facility] Start: 12-29-2019 Alcohol intake Lifetime [facility]-d giovanny (finding[facility]: 12-29[facility]2019 History SDOH Alcohol Frequency 1 [facility] Start: 1983 [facility] Exposure to SARS-CoV -2 (event) [facility] Exposure to SARS-CoV -2 (event) Not sure [facility] History of tobacco use Cigarette Smoker [facility] Start: 07-15-2023 Tobacco use and exposure User of smokeless tobacco [facility] Start: 07-15-2023 Tobacco use panel [facility] Progress note 07-15-2023 Note Date & Type Note Facility 07-15-2023 Note HNO ID: [id number] Author: Priscilla Albert APRN.PREPLEATER Service: ? Author Type: Nurse Practitioner Type: [...] seek emergency care Gayatri Tony, MSN, RN- COMBINATION OPERATOR Student Gayatri Tony, student nurse practitioner, and myself have interviewed the patient. I re-performed the HPI and physical exam. Assessment and plan was developed together. I spent a total of 30 minutes on the date of the service which included preparing to see the patient, [id number] patient care, completing clinical documentation, obtaining and/or reviewing separately obtained history, performing a medically appropriate examination, counseling and educating the patient/family/caregiver, and ordering medications, tests, or procedures. Priscilla Albert APRN.[facility] History of Present illness Narrative 07-15-2023 Priscilla Albert APRN.PREPLEATER - 07/15/2023 1:49 PM EST Note Date [...] seek emergency care Gayatri Tony, MSN, RN- COMBINATION OPERATOR Student Gayatri Tony, student nurse practitioner, and myself have interviewed the patient. I re-performed the HPI and physical exam. Assessment and plan was developed together. I spent a total of 30 minutes on the date of the service which included preparing to see the patient, [id number] patient care, completing clinical documentation, obtaining and/or reviewing separately obtained history, performing a medically appropriate examination, counseling and educating the patient/family/caregiver, and ordering medications, tests, or procedures. Priscilla Albert APRN.PREPLEATER documented in this encounter [facility] Clinical Note 09-27-2021 Note Date & [...] authenticated by: RICARDO WEBB Date: 2021-09-27 13:13 [facility] Evaluation note Note Date & Type Note Facility Evaluation note Diagnosis Primary hypertension- Primary Unspecified essential hypertension documented in this encounter [facility] Discharge Instructions * Instructions* Crystal Little MD - 12/29/2019 Thank you for visiting [facility] Emergency Department. You need to call No primary care provider on file. to make an appointment as directed for follow up. Should you have any questions regarding your care or further treatment, please call [facility] Emergency Department at [phone]. 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 Documents on File Type Date Recorded Patient Clinical Counselor Expl anation Advance Directives and Living Will [...] section and content) DATE CREATED AUTHOR 03/06/2020 [facility] DATE CREATED AUTHOR AUTHOR'S ORGANIZ ATION 01/30/2021 [facility] DATE CREATED AUTHOR AUTHOR'S ORGANIZ ATION 06/30/2022 [facility] DATE CREATED AUTHOR AUTHOR'S ORGANIZ ATION 08/26/2022 [facility] DATE CREATED AUTHOR AUTHOR'S ORGANIZ ATION 07/18/2023 [facility] DATE CREATED AUTHOR AUTHOR'S ORGANIZ ATION 07/23/2023 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 [facility] Social [employer] [facility]. provides no warranty or guarantee of the accuracy or completeness of information in this document.
--- OUTSIDE RECORDS SUMMARY | 2024-03-01 11:18 | XMS_ITS | CCD ---
Author Organization [place] [facility] Care Team Providers Care Building Dismantler Name Role Phone Unavailable Primary Care Provider [...] / oxyCODONE Drug Allergy 04-21-20 18 Itching [place], [place] (3 sources) busPIRone Drug Allergy 04-21-20 18 Other: See Comments [place] (3 sources) Sulfamethoxazole / Trimethoprim Drug Allergy 04-21-20 18 Anaphylaxis [place] (2 sources) Acetaminophen / oxyCODONE; 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: [Percocet] Drug Allergy 08-15-19 15 [facility] Repository (2 sources) Adhesive agent Drug allergy (disorder) 11-28-19 15 [facility] Repository (3 sources) busPIRone; 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: [BuSpar] Drug Allergy 08-07-20 16 [facility] Repository (2 sources) Latex; 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: [Latex] Drug allergy (disorder) [facility] Repository (1 source) Sulfamethoxazole / Trimethoprim Drug Allergy [facility] Repository (1 source) venlafaxine Drug Allergy [facility] Repository (1 source) Adhesive bandage; 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: [Adhesive Bandage] Propensity to adverse reactions (disorder) [facility] Repository (1 source) Sulfamethoxazole / Trimethoprim; 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: [Bactrim] Drug Allergy [facility] Repository Medications Current Medications Medication Drug Class(es) [...] 06-30-2022 Chronic Other aftercare (1 source) Other half-way (current) drug therapy; 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: [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 CURRENT DRUG THERAPY] Onset: 06-30-2022 Episodic Other [...] Interpretation Reference Range Facility [facility] 07-21-2023 Consent [id number] F [facility] In office Testingon 07-21-20 In office Testing [id number]#[id number] FF [facility] Registrationon 07-21-2023 Registration [id number]#[id number] F [facility] CNOVon 07-15-2023 CNOV Office Visit (WALKMN ) -------- SILVER ANDUJAR ([id number]) 1985 F Date Time Provider Department 07/15/23 1:45 PM PRISCILLA ALBERT WALKNV During your visit today, we recorded the following information about you: Temperature Pulse Blood pressure 98 degrees 89/minute 131/81 Priscilla Albert APRN.ROOFING APPLICATOR 07/15/2023 4:34 PM Signed CC: Headache and high BP HPI: Silver Andujar is a 37 year old female who presents to the [facility] walk in clinic for the [...] seek emergency care Gayatri Tony, MSN, RN- DIRECTOR EXPORT Student Gayatri Tony, student nurse practitioner, and myself have interviewed the patient. I re-performed the HPI and physical exam. Assessment and plan was developed together. I spent a total of 30 minutes on the date of the service which included preparing to see the patient, [id number] patient care, completing clinical documentation, obtaining and/or reviewing separately obtained history, performing a medically appropriate examination, counseling and educating the patient/family/caregiver , and ordering medications, tests, or procedures. Priscilla Albert APRN.ROOFING APPLICATOR Referring Provider: SELF [[id number]] Allergies As of Date: 07/15/2023 Noted Allergy Reaction BUSPIRONE 04/21/2018 14 - Other: See Comments OXYCODONE-ACETAMINOPHEN 04/21/2018 9 - Itching SULFAMETHOXAZOLE-TRIMETH OPRIM 04/21/2018 10 - Anaphylaxis Date Reviewed: 07/15/2023 Reviewed by: Priscilla Albert APRN.ROOFING APPLICATOR - Fully Assessed Reason for Visit: Headache [...] Status:Closed by PRISCILLA ALBERT on 07/15/23 Normal [facility] DUP LOWER EXTREMITY RIGHT VENon 08-26-2022 DUP [...] Henrry Sweeney MD 08/26/22 Final result Normal [facility] Comment on above: Order Comment: Reaso n [...] Henrry Sweeney MD 08/26/22 Final result Normal [facility] Comment on above: Order Comment: Reaso n [...] RICARDO WEBB Date: 2022-06-28 14:32 Normal [facility] CULTURE URINEon 12-22-2021 CULTURE URINE Culture Observations : MODERATE GROWTH OF MIXED SKIN CHARLY. NO POTENTIAL PATHOGENS SEEN. Normal [facility] Comment on above: Performed By: #### U RCX #### [facility] [address] [place] [address] Dr. Reba Swain CBC W MANUAL DIFFon 12-22-19 22 ATYPICAL LYMPH # Normal [facility] Comment on above: Performed By: #### C BCMAN #### [facility] [address] [address] [address] Reba Swain ATYPICAL LYMPH % Normal [facility] Comment on above: Performed By: #### C BCMAN #### [facility] [address] [address] [address] Reba Swain BAND # Normal 0.0-0.3 [facility] Comment on above: Performed By: #### C BCMAN #### [facility] [address] [place] [address] Dr. Reba Swain BAND % Normal 0-5 [facility] Comment on above: Performed By: #### C BCNIKI #### [facility] [address] [place] [address] Dr. Reba Swain BASOM # 0.08 103/ul Normal 0.00-0.10 [facility] Comment on above: Performed By: #### C BCNIKI #### [facility] [address] [place] [address] Dr. Reba Swain BASOM % 1.0 % Normal 0.2-2.0 [facility] Comment on above: Performed By: #### C TRAMAINE #### [facility] [address] [place] [address] Dr. Reba Swain BLAST # Normal [facility] Comment on above: Performed By: #### C TRAMAINE #### [facility] [address] [place] [address] Dr. Reba Swain BLAST % Normal [facility] Comment on above: Performed By: #### C TRAMAINE #### [facility] [address] [place] [address] Dr. Reba Swain CORRECTED WBC Normal 4.0-11.0 [facility] Comment on above: Performed By: #### C TRAMAINE #### [facility] [address] [place] [address] Dr. Reba Swain EOS # 0.08 103/ul Normal 0.00-0.70 [facility] Comment on above: Performed By: #### C BCNIKI #### [facility] [address] [place] [address] Dr. Reba Swain EOS% 1.0 % Normal 0.9-7.0 [facility] Comment on above: Performed By: #### C TRAMAINE #### [facility] [address] [place] [address] Dr. Reba Swain HCT 42.3 % Normal 36.0-48.0 [facility] Comment on above: Performed By: #### C BCNIKI #### [facility] [address] [address] [address] Reba Swain HGB 14.0 g/dl Normal 12.0-16.0 [facility] Comment on above: Performed By: #### C TRAMAINE #### [facility] [address] [address] [address] Reba Swain LYMPHM # 0.83 103/ul Critically low 1.20-3.80 [facility] Comment on above: Performed By: #### C TRAMAINE #### [facility] [address] [address] [address] Reba Swain LYMPHM% 10.0 % Critically low 20.5-60.0 [facility] Comment on above: Performed By: #### C TRAMAINE #### [facility] [address] [place] [address] Dr. Reba Swain MCH 30.6 pg Normal 26.7-34.0 [facility] Comment on above: Performed By: #### C TRAMAINE #### [facility] [address] [place] [address] Dr. Reba Swain MCHC 33.1 g/dl Normal 29.9-35.2 [facility] Comment on above: Performed By: #### C TRAMAINE #### [facility] [address] [place] [address] Dr. Reba Swain MCV 92.4 fL Normal 81.0-99.0 [facility] Comment on above: Performed By: #### C BCNIKI #### [facility] [address] [place] [address] Dr. Reba Swain METAMYELOCYTE # Normal [facility] Comment on above: Performed By: #### C BCNIKI #### [facility] [address] [place] [address] Dr. Reba Swain METAMYELOCYTE % Normal [facility] Comment on above: Performed By: #### C TRAMAINE #### [facility] [address] [place] [address] Dr. Reba Swain MONOM# 0.25 103/ul Critically low 0.30-0.80 [facility] Comment on above: Performed By: #### C TRAMAINE #### [facility] [address] [place] [address] Dr. Reba Swain MONOM% 3.0 % Normal 1.7-12.0 [facility] Comment on above: Performed By: #### C TRAMAINE #### [facility] [address] [place] [address] Dr. Reba Swain MPV 10.3 fL Normal 9.5-13.5 [facility] Comment on above: Performed By: #### C TRAMAINE #### [facility] [address] [place] [address] Dr. Reba Swain MYELOCYTE # Normal [facility] Comment on above: Performed By: #### C TRAMAINE #### [facility] [address] [place] [address] Dr. Reba Swain MYELOCYTE % Normal [facility] Comment on above: Performed By: #### C TRAMAINE #### [facility] [address] [place] [address] Dr. Reba Swain NRBC Normal [facility] Comment on above: Performed By: #### C TRAMAINE #### [facility] [address] [place] [address] Dr. Reba Swain PLT 190 103/ul Normal 150-450 [facility] Comment on above: Performed By: #### C TRAMAINE #### [facility] [address] [place] [address] Dr. Reba Swain RBC 4.58 106/ul Normal 4.20-5.40 [facility] Comment on above: Performed By: #### C TRAMAINE #### [facility] [address] [place] [address] Dr. Reba Swain RDW 13.3 % Normal 11.0-15.0 [facility] Comment on above: Performed By: #### C TRAMAINE #### [facility] [address] [place] [address] Dr. Reba Swain SEG # 7.06 103/ul Critically high 1.40-6.50 [facility] Comment on above: Performed By: #### Lexie REDD #### [facility] [address] [place] [address] Dr. Reba Swain SEG % 85.0 % Critically high 43.0-75.0 [facility] Comment on above: Performed By: #### Lexie REDD #### [facility] [address] [place] [address] Dr. Reba Swain WBC 8.3 103/ul Normal 4.0-11.0 [facility] Comment on above: Performed By: #### Lexie REDD #### [facility] [address] [place] [address] HEAD WO CONon [...] Joe SO Date: 2021-12-21 19:59 Normal [facility] ER URINE PROFILEon 2 Bilirubin Ql (U) Negative Normal NEGATIVE [facility] Comment on above: Performed By: #### ESTEPHANIA HUTCHISON #### [facility] [address] [place] [address] Dr. Reba Swain Clarity (U) CLEAR Normal CLEAR [facility] Comment on above: Performed By: #### ESTEPHANIA HUTCHISON #### [facility] [address] [place], [place] [id number] Dr. Reba Swain Color (U) YELLOW Normal YELLOW [facility] Comment on above: Performed By: #### Amy CONTRERAS UMICRO #### [facility] [address] [address] [address] Reba CHAUDHRY A micrscopic examina tion will be performed if indicated. Normal [facility] Comment on above: Performed By: #### Amy CONTRERAS UMICRO #### [facility] [address] [address] [address] Reba Swain Glucose Ql (U) Negative Normal NEGATIVE [facility] Comment on above: Performed By: #### Amy CONTRERAS UMICRO #### [facility] [address] [address] [address] Reba Swain Hemoglobin Ql (U) Negative Normal NEGATIVE [facility] Comment on above: Performed By: #### Amy CONTRERAS UMICRO #### [facility] [address] [place] [address] Dr. Reba Swain Ketones Ql (U) Negative Normal NEGATIVE [facility] Comment on above: Performed By: #### Amy CONTRERAS UMICRO #### [facility] [address] [place] [address] Dr. Reba Swain LEUKOCYTES Negative Normal NEGATIVE [facility] Comment on above: Performed By: #### Amy CONTRERAS UMICRO #### [facility] [address] [place] [address] Dr. Reba Swain Nitrite Ql (U) Negative Normal NEGATIVE [facility] Comment on above: Performed By: #### Amy CONTRERAS UMICRO #### [facility] [address] [place] [address] Dr. Reba Swain pH (U) 7.0 [pH] Normal 5-9 [facility] Comment on above: Performed By: #### Amy CONTRERAS UMICRO #### [facility] [address] [place] [address] Dr. Reba Swain Protein (U) [Mass/Vol] 100 mg/dL Abnormal NEGATIVE/ TRACE [facility] Comment on above: Performed By: #### Amy CONTRERAS UMICRO #### [facility] [address] [place] [address] Dr. Reba Swain SPEC GRAVITY 1.025 Normal 1.005-<=1.025 [facility] Comment on above: Performed By: #### ESTEPHANIA HUTCHISON #### [facility] [address] [place] [address] Dr. Reba Swain UR MICRO IND INDICATED Normal [facility] Comment on above: Performed By: #### ESTEPHANIA HUTCHISON #### [facility] [address] [place] [address] Dr. Reba Swain Urobilinogen Qn (U) 0.2 {Tamia'U}/dL Normal 0.2 - 1. 0 [facility] Comment on above: Performed By: #### ESTEPHANIA HUTCHISON #### [facility] [address] [place] [address] Dr. Reba Swain PROF CHEM 8 (BAS METB)on Anion gap [Moles/Vol] 14.8 mmol/L Normal [facility] Comment on above: Performed By: #### B MP #### [facility] [address] [place] [address] Dr. Reba Swain Calcium [Mass/Vol] 8.5 mg/dL Normal 8.5-10.1 [facility] Comment on above: Performed By: #### B MP #### [facility] [address] [place] [address] Dr. Reba Swain Chloride [Moles/Vol] 100 mmol/L Normal 98-107 [facility] Comment on above: Performed By: #### B MP #### [facility] [address] [place] [address] Dr. Reba Swain CO2 [Moles/Vol] 23.7 mmol/L Normal 21.0-32.0 [facility] Comment on above: Performed By: #### B MP #### [facility] [address] [place] [address] Dr. Reba Swain Creatinine [Mass/Vol] 0.79 mg/dL Normal 0.55-1.02 [facility] Comment on above: Performed By: #### B MP #### [facility] [address] [address] [address] Reba Swain EGFR-AF MARSHALLESE >60 Normal >=60 [facility] Comment on above: Performed By: #### B MP #### [facility] [address] [address] [address] Reba Swain EGFR-NON AF MARSHALLESE >60 Normal >=60 [facility] Comment on above: Performed By: #### B MP #### [facility] [address] [address] [address] Reba Swain Glucose [Mass/Vol] 107 mg/dL Critically high 74-106 [facility] Comment on above: Performed By: #### B MP #### [facility] [address] [address] [address] Reba Swain Potassium [Moles/Vol] 3.5 mmol/L Normal 3.5-5.1 [facility] Comment on above: Performed By: #### B MP #### [facility] [address] [address] [address] Reba Swain Sodium [Moles/Vol] 135 mmol/L Critically low 136-145 [facility] Comment on above: Performed By: #### B MP #### [facility] [address] [address] [address] Reba Swain Urea nitrogen [Mass/Vol] 9.0 mg/dL Normal 7.0-18.0 [facility] Comment on above: Performed By: #### B MP #### [facility] [address] [address] [address] Reba Swain Urea nitrogen/Creatinine [Mass ratio] 11.4 mg/mg Normal [facility] Comment on above: Performed By: #### B MP #### [facility] [address] [address] [address] Reba Swain TROPONIN, HIGH SENSITIVITYon 12-21-2021 HSTROP 4.3 pg/mL Normal 4.0-51.3 [facility] Comment on above: Result Comment: CUT- OFF POINTS HAVE BEEN ESTABLISHED BASED ON THE FOURTH UNIVERSAL DEFINITIONS OF MYOCARDIAL INFARCTION. THE UPPER REFERENCE LIMIT (URL) OF TROPONIN, DEFINED THE 99TH PERCENTILE OF cTnI DISTRIBUTION IN A REFERENCE POPULATION, HAS BEEN CONFIRMED THE DECISION THRESHOLD FOR LA DIAGNOSIS. Performed By: #### H STROPN #### [facility] [address] [place] [address] Dr. Reba Swain URINE MICROSCOPIC ONLYon BACTERIA SMALL Abnormal NONE SEEN [facility] Comment on above: Performed By: #### E RUR, UMICRO #### [facility] [address] [place] [address] Dr. Reba Swain Bacteria identified Cx Nom (U) INDICATED Normal [facility] Comment on above: Performed By: #### E BESTR, UMICRO #### [facility] [address] [place] [address] Dr. Reba Swain CAST SEEN Abnormal NONE SEEN [facility] Comment on above: Performed By: #### E DIANE UMICRO #### [facility] [address] [place] [address] Dr. Reba Swain Crystals LM Nom (Urine sed) NONE SEEN Normal NONE SEEN [facility] Comment on above: Performed By: #### Amy CONTRERAS UMICRO #### [facility] [address] [place] [address] Dr. Reba Swain Epithelial cells LM Ql (Urine sed) FEW Abnormal NONE SEEN /RARE [facility] Comment on above: Performed By: #### Amy CONTRERAS UMICRO #### [facility] [address] [place] [address] Dr. Reba Swain MUCOUS TRACE Abnormal NONE SEEN [facility] Comment on above: Performed By: #### E RUR, UMICRO #### [facility] [address] [place] [address] Dr. Reba Swain RBC 0-2 Normal 0-2 [facility] Comment on above: Performed By: #### E RUR, UMICRO #### [facility] [address] [place] [address] Dr. Reba Swain WBC 2-5 Abnormal NONE SEEN [facility] Comment on above: Performed By: #### E RUR, UMANANDABELARDO #### [facility] [address] [address] [address] Reba Swain XR lumbar spine min 4V*on XR lumbar spine min 4V* [facility] [address] [place] [id number] XRay Report Signed Patient: Silver Andujar MR#: [id number] : 1985 Acct:[id number] Age/Sex: 35 / F ADM Date: 01/14/21 [...] Sweeney Jr., M.D.01/14/2021 6:46 PM Dictation Location: [place] [address] Transcribed By: [facility] 01/14/211845 Dictated By: Henrry Sweeney Jr, MD 01/14/211840 Signed By: 01/14/211845 Normal [facility] [id number] 02-16-2020 SARS-CoV-2 Not Detected Normal Not Detected [facility] Comment on above: Result Comment: (NOT E) Testing was performed using the Aptima SARS-CoV-2 assay. This test was developed and its performance characteristics determined by [employer]. This test has not been FDA cleared [...] result in this assay. Performed At: = [facility] [id number] Macy Ortega MD Ph:[phone] Performed By: #### A COV #### [facility] [address] [place] [id number] Hat Sprayer: Bronson Webster MD Vital Signs Date Time Vital Sign Value Performing Clinician Facility 07-15-2023 13:44-0500 Body temperature 98.01 [degF] Priscilla Albert APRN.CNP Work Phone: [facility] 07-15-2023 13:44-0500 Diastolic blood pressure 81 mm[Hg] Priscilla Albert APRN.ROOFING APPLICATOR Work Phone: [facility] 07-15-2023 13:44-0500 Heart rate 89 /min Priscilla Albert APRN.ROOFING APPLICATOR Work Phone: [facility] 07-15-2023 13:44-0500 Systolic blood pressure 131 mm[Hg] Priscilla Albert APRN.ROOFING APPLICATOR Work Phone: [facility] 12-29-2019 05:16-0400 BMI (Body Mass Index) 37.24 kg/m2 Raheel Ruchi [facility] [place] [place] 12-29-2019 05:16-0400 Body Temperature 97.3 [degF] [facility] [place] 12-29-2019 05:16-0400 Body weight 121.11 kg Raheel Jackson [facility] [place] 12-29-2019 05:16-0400 BP Diastolic 65 mm[Hg] [facility] [place] [place] 12-29-2019 05:16-0400 BP Systolic 114 mm[Hg] Raheel Jackson [facility] [place] 12-29-2019 05:16-0400 Height 180.3 cm [facility] [place] 12-29-2019 05:16-0400 Pulse (Heart Rate) 60 /min [facility] [place] 12-29-2019 05:16-0400 Pulse Oximetry 97 % [facility] [place] 12-29-2019 05:16-0400 Respiratory Rate 18 /min [facility] [place] Encounters Encounter Date Encounter Type Care Provider Facility Start: 08-22-2023 End: 08-23-2023 ambulatory Rony Dainels MD Facility: [facility] Start: 08-01-2023 End: 08-02-2023 ambulatory Rony Daniels MD Facility: [facility] Start: 07-21-2023 End: 07-22-2023 ambulatory Laurel ALEXANDER Facility:[facility] Start: 07-18-2023 End: 07-19-2023 ambulatory Rony Daniels MD Facility: [facility] Start: 07-15-2023 End: 07-15-2023 ambulatory HENRRY VARGAS Facility:[facility] Start: 07-15-2023 End: 07-15-2023 Patient encounter procedure Priscilla Albert APRN.ROOFING APPLICATOR Work Phone: [facility] Comment on above: Primary hypertension (Primary Dx) Start: 08-26-2022 End: 08-26-2022 [facility]: 06-28-[facility]22 End: 06-28-2022 ambulatory MARIE HENRY Facility: Start: 12-21-2021 End: 12-21-2021 ambulatory MARIE HENRY Facility: Start: 12-11-2021 ambulatory MARIE HENRY Facility: [facility] Start: 09-27-2021 End: 09-27-2021 ambulatory JOSHUA BAILEY Facility:[facility] Start: 08-11-2021 End: 08-11-[address] MARJAN HAILE Facility:[facility] Start: 09-22-2020 End: 09-22-2020 Patient encounter procedure Jaz Iglesias Work Phone: [facility] Start: 08-25-2020 End: 08-25-2020 Patient encounter procedure Jean-Claude Redmond [facility] Start: 02-12-2020 End: 02-13-2020 Patient encounter procedure DUKECherie AURELIA [facility] Start: 02-12-2020 End: 02-12-2020 Subsequent hospital visit by physician ARIADNA Kerr Start: 12-29-2019 End: 12-29-2019 Emergency department patient visit RAHEEL JACKSON [facility] Start: 12-29-2019 End: 12-29-2019 Emergency department patient visit Raheel Jackson Work Phone: [facility] Comment on above: [...] 08-17-2026 Tetanus vaccination Tetanus: Every 1 0yrs [facility] Start: 08-17-2026 Urine microalbumin profile DTaP,Tdap,Td Vaccine (2 - Td or Tdap) [facility] Start: 04-15-2023 Covid-19 Vaccine (2022- season) Covid-19 Vaccine ( season) [facility] Start: 04-15-2023 Influenza vaccination Influenza Vacc ine (#1) [facility] Start: 01-01-2023 Depression Assessment Depression Ass essment [facility] Start: 09-22-2020 COVID-19 Vaccine (Moderna) (#2) COVID-19 Vaccine (Moderna) (#2) [facility] Start: 09-22-2020 End: 09-22-2020 Immunization 09/22/2020 Immunization Primary Care Jaz Iglesias MD [address] [facility] [address] [place] [address] [phone] [facility] [employer] [facility] Start: 04-15-2020 Influenza vaccination [place] Start: 04-15-2020 Influenza vaccinatio n given Sequential Influenza Vaccine (#1) [facility] Start: 2013 HPV Testing HPV Testing [facility] Start: 2004 Pap Testing Pap Testing [facility] Start: 2001 Hepatitis C antibody , confirmatory test Hepatitis C Screening [facility] Start: 2001 Hepatitis C Screening Hepatitis C Sc reening [facility] Start: 2001 HIV Screening HIV Screening [facility] Start: 1998 HIV screening HIV Screening [facility] Start: 1995 Adolescent depressio n screening assessment Depression Screening (PHQ9) [facility] Start: 1989 Pneumococcal vaccination Pneumococcal Vaccine (1 - PCV) [facility] Start: 1986 History and physical examination, annual for health maintenance Wellness Visit [facility] Start: 1983 Creatinine measurement Creatinine mo nitoring [place], [place] Start: 1983 Hepatitis B Vaccine (1 of 3 - 3-dose series) Hepatitis B Vaccine (1 of 3 - 3-dose series) [facility] Start: 1983 Potassium monitoring Potassium monit oring [place], [place] Start: 1983 Screening for malign ant neoplasm of cervix Pap Smear [facility] Start: 1983 Tetanus vaccination Tetanus: Every 1 0yrs [facility] End: 02-12-2020 Covid-19 Ambulatory Covid-19 Ambulatory Lab Routine Once for 1 Occurrences starting 02/12/2020 until 02/12/2020 [place], [place] Comment on above: Once for 1 Occurrenc es starting 02/12/2020 until 02/12/2020 Covid-19 Ambulatory Covid-19 Amb ulatory Lab Routine 02/12/2020 7:08 AM EDT [place], [place] Immunizations Immunization Date Immunization Notes Care Provider Olamide chapa 06-04-2022 influenza virus vacc ine, unspecified formulation Priscilla Albert APRN.ROOFING APPLICATOR Work Phone: [facility] 09-22-2020 Moderna SARS-CoV-2 Vaccination Lizbeth Mcclendon [facility] 08-25-2020 Moderna SARS-CoV-2 Vaccination Jean-Claude Redmond [facility] Payers Date Payer Category Payer Unknown [id number] 2019 Unknown 1985 Unknown [id number] [id number] 1983 Unknown [id number] 2.16.84 [id number] 1983 Unknown [id number] 2.16.84 [id number] 1983 Unknown [id number] 2.16.84 [id number] 1983 Unknown [id number] 2.16.84 [id number] 1983 Unknown [id number] 2.16.84 [id number] 1983 Unknown [id number] 2.16. [id number] 1983 Unknown [id number] 2.16. [id number] 1983 Unknown [id number] 2.16. [id number] 1961 Self-pay [id number] Social History Date Type Detail Facility Start: 12-29-2019 End: 07-15-2023 Tobacco smoking status NHIS Current every day smoker [facility] Start: 12-29-2019 End: 07-15-2023 Cigarettes smoked current (pack per day) [facility]: 12-[facility]2019 Alcohol intake Lifetime non-d giovanny (finding) [facility] Start: 12-29-2019 History SDOH Alcohol Frequency 1 [facility] Start: 1985 [facility] Exposure to SARS-CoV -2 (event) [facility] Exposure to SARS-CoV -2 (event) Not sure [facility] History of tobacco use Cigarette Smoker [facility] Start: 07-15-2023 Tobacco use and exposure User of smokeless tobacco [facility] Start: 07-15-2023 Tobacco use panel [facility] Progress note 07-15-2023 Note Date & Type Note Facility 07-15-2023 Note HNO ID: [id number] Author: Priscilla Albert APRN.ROOFING APPLICATOR Service: ? Author Type: Nurse Practitioner Type: [...] seek emergency care Gayatri Tony, MSN, RN- DIRECTOR EXPORT Student Gayatri Tony, student nurse practitioner, and myself have interviewed the patient. I re-performed the HPI and physical exam. Assessment and plan was developed together. I spent a total of 30 minutes on the date of the service which included preparing to see the patient, [id number] patient care, completing clinical documentation, obtaining and/or reviewing separately obtained history, performing a medically appropriate examination, counseling and educating the patient/family/caregiver, and ordering medications, tests, or procedures. Priscilla Albert APRN.[facility] History of Present illness Narrative 07-15-2023 Priscilla Albert APRN.ROOFING APPLICATOR - 07/15/2023 1:49 PM EST Note Date [...] seek emergency care Gayatri Tony, MSN, RN- DIRECTOR EXPORT Student Gayatri Tony, student nurse practitioner, and myself have interviewed the patient. I re-performed the HPI and physical exam. Assessment and plan was developed together. I spent a total of 30 minutes on the date of the service which included preparing to see the patient, [id number] patient care, completing clinical documentation, obtaining and/or reviewing separately obtained history, performing a medically appropriate examination, counseling and educating the patient/family/caregiver, and ordering medications, tests, or procedures. Priscilla Albert APRN.ROOFING APPLICATOR documented in this encounter [facility] Clinical Note 09-27-2021 Note Date & [...] authenticated by: RICARDO WEBB Date: 2021-09-27 13:13 [facility] Evaluation note Note Date & Type Note Facility Evaluation note Diagnosis Primary hypertension- Primary Unspecified essential hypertension documented in this encounter [facility] Discharge Instructions * Instructions* Crystal Little MD - 12/29/2019 Thank you for visiting [facility] Emergency Department. You need to call No primary care provider on file. to make an appointment as directed for follow up. Should you have any questions regarding your care or further treatment, please call [facility] Emergency Department at [phone]. 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 DATE CREATED AUTHOR AUTHOR'S ORGANIZ ATION 07/23/2023 [facility] DATE CREATED AUTHOR AUTHOR'S ORGANIZ ATION 09/06/2023 [facility] Source Comments (unrecognize d section and content) In the event this informatio n is protected by the Federal Confidentiality of Alcohol and Drug Abuse Patient Records regulations: The Federal rules restrict any use of the information to criminally investigate or prosecute any alcohol or drug abuse patient.[facility] Care Teams (unrecognized sec tion and content) Building Dismantler 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 [facility] [employer] [facility]. provides no warranty or guarantee of the accuracy or completeness of information in this document.
[2024-03-01 14:13] LABS: C. Difficile PCR NEGATIVE (NEGATIVE)
== END 2024-03-01 11:01 | disposition home or self-care (01) ==
PROVIDERS: PCP Nurse Practitioner Family; Visit Provider Nurse Practitioner Family
DX: R19.7 Diarrhea, unspecified (principal)
CPT/HCPCS: 87045; 87046; 87427; 87493

== ENCOUNTER 2024-03-12 09:43 | Day surgery (SDC) | payer OTHER, SELFPAY ==
--- OUTSIDE RECORDS SUMMARY | 2024-03-12 09:49 | XMS_ITS | CCD ---
Author Organization [place] [email or web address] Care Team Providers Care [employer] Name Role Phone Unavailable Primary Care Provider [...] ALLISON, DR TERRANCE Workman Attending UnavailDR RICARDO bAdi V Consulting Unavailable CATHERINE CARUSO Consulting Unavailable [...] / oxyCODONE Drug Allergy 04-21-20 18 Itching [place], [place] (3 sources) busPIRone Drug Allergy 04-21-20 18 Other: See Comments [place], [place] (3 sources) Sulfamethoxazole / Trimethoprim Drug Allergy 04-21-20 18 Anaphylaxis [place] (2 sources) Acetaminophen / oxyCODONE; 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: [Percocet] Drug Allergy 08-15-19 15 [facility] Repository (2 sources) Adhesive agent Drug allergy (disorder) 11-28-19 15 [facility] (3 sources) busPIRone; 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: [BuSpar] Drug Allergy 08-07-20 16 [facility] (2 sources) Latex; 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: [Latex] Drug allergy (disorder) [facility] (1 source) Sulfamethoxazole / Trimethoprim Drug Allergy [facility] (1 source) venlafaxine Drug Allergy [facility] (1 source) Adhesive bandage; 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: [Adhesive Bandage] Propensity to adverse reactions (disorder) [facility] Repository (1 source) Sulfamethoxazole / Trimethoprim; 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: [Bactrim] Drug Allergy [facility] Repository Medications Current Medications Medication Drug [...] Active take 1 tablet by mouth once blnaca y metoprolol succinate (TOPROL XL) 50 MG [...] 06-30-2022 Chronic Other aftercare (1 source) Other skilled nursing (current) drug therapy; 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: [OTH HAIR DRYER CURRENT DRUG THERAPY] Onset: 06-30-2022 Episodic Other [...] Interpretation Reference Range Facility [facility] 07-21-2023 Consent [id number]#[id number] F [facility] In office Testingon 07-21-20 In office Testing [id number]#[id number] FF [facility] Registrationon 07-21-2023 Registration [id number]#[id number] F [facility] CNOVon 07-15-2023 CNOV Office Visit (WALKMN ) -------- SILVER ANDUJAR ([id number]) 1985 F Date Time Provider Department 07/15/23 1:45 PM PRISCILLA ALBERT WALKVA During your visit today, we recorded the following information about you: Temperature Pulse Blood pressure 98 degrees 89/minute 131/81 Priscilla Albert APRN.SENIOR SUSTAINABILITY CONSULTANT 07/15/2023 4:34 PM Signed CC: Headache and high BP HPI: Silver Andujar is a 37 year old female who presents to the [facility] walk in clinic for the above chief [...] seek emergency care Gayatri Tony, MSN, RN- PRESS OFFICER Student Gayatri Tony, student nurse practitioner, and myself have interviewed the patient. I re-performed the HPI and physical exam. Assessment and plan was developed together. I spent a total of 30 minutes on the date of the service which included preparing to see the patient, [id number] patient care, completing clinical documentation, obtaining and/or reviewing separately obtained history, performing a medically appropriate examination, counseling and educating the patient/family/caregiver , and ordering medications, tests, or procedures. Priscilla Albert APRN.SENIOR SUSTAINABILITY CONSULTANT Referring Provider: SELF [[id number]] Allergies As of Date: 07/15/2023 Noted Allergy Reaction BUSPIRONE 04/21/2018 14 - Other: See Comments OXYCODONE-ACETAMINOPHEN 04/21/2018 9 - Itching SULFAMETHOXAZOLE-TRIMETH OPRIM 04/21/2018 10 - Anaphylaxis Date Reviewed: 07/15/2023 Reviewed by: Priscilla Albert APRN.SENIOR SUSTAINABILITY CONSULTANT - Fully Assessed Reason for Visit: Headache [...] Status:Closed by PRISCILLA ALBERT on 07/15/[address] [facility] DUP LOWER EXTREMITY RIGHT VENon 08-26-2022 [...] Henrry Sweeney MD 08/26/22 Final result Normal [facility] Comment on above: Order Comment: Reaso n [...] Henrry Sweeney MD 08/26/22 Final result Normal [facility] Comment on above: Order Comment: Reaso n [...] RICARDO WEBB Date: 2022-06-28 14:32 Normal [facility] CULTURE URINEon 12-22-2021 CULTURE URINE Culture Observations : MODERATE GROWTH OF MIXED SKIN CHARLY. NO POTENTIAL PATHOGENS SEEN. Normal [facility] Comment on above: Performed By: #### U RCX #### [facility] [address] [place] [address] Dr. Reba Swain CBC W MANUAL DIFFon 12-22-19 22 ATYPICAL LYMPH # Normal [facility] Comment on above: Performed By: #### C BCMAN #### [facility] [address] [address] [address] Reba Swain ATYPICAL LYMPH % Normal [facility] Comment on above: Performed By: #### C BCMAN #### [facility] [address] [address] [address] Reba Swain BAND # Normal 0.0-0.3 [facility] Comment on above: Performed By: #### C BCMAN #### [facility] [address] [place] [address] Dr. Reba Swain BAND % Normal 0-5 [facility] Comment on above: Performed By: #### C BCNIKI #### [facility] [address] [place] [address] Dr. Reba Swain BASOM # 0.08 103/ul Normal 0.00-0.10 [facility] Comment on above: Performed By: #### C BCNIKI #### [facility] [address] [place] [address] Dr. Reba Swain BASOM % 1.0 % Normal 0.2-2.0 [facility] Comment on above: Performed By: #### C TRAMAINE #### [facility] [address] [place] [address] Dr. Reba Swain BLAST # Normal [facility] Comment on above: Performed By: #### C TRAMAINE #### [facility] [address] [place] [address] Dr. Reba Swain BLAST % Normal [facility] Comment on above: Performed By: #### C TRAMAINE #### [facility] [address] [place] [address] Dr. Reba Swain CORRECTED WBC Normal 4.0-11.[address] [facility] Comment on above: Performed By: #### C TRAMAINE #### [facility] [address] [place] [address] Dr. Reba Swain EOS # 0.08 103/ul Normal 0.00-0.70 [facility] Comment on above: Performed By: #### C BCNIKI #### [facility] [address] [place] [address] Dr. Reba Swain EOS% 1.0 % Normal 0.9-7.0 [facility] Comment on above: Performed By: #### C TRAMAINE #### [facility] [address] [place] [address] Dr. Reba Swain HCT 42.3 % Normal 36.0-48.0 [facility] Comment on above: Performed By: #### C BCNIKI #### [facility] [address] [address] [address] Reba Swain HGB 14.0 g/dl Normal 12.0-16.0 [facility] Comment on above: Performed By: #### C TRAMAINE #### [facility] [address] [address] [address] Reba Swain LYMPHM # 0.83 103/ul Critically low 1.20-3.80 [facility] Comment on above: Performed By: #### C TRAMAINE #### [facility] [address] [address] [address] Reba Swain LYMPHM% 10.0 % Critically low 20.5-60.0 [facility] Comment on above: Performed By: #### C TRAMAINE #### [facility] [address] [place] [address] Dr. Reba Swain MCH 30.6 pg Normal 26.7-34.0 [facility] Comment on above: Performed By: #### C TRAMAINE #### [facility] [address] [place] [address] Dr. Reba Swain MCHC 33.1 g/dl Normal 29.9-35.2 [facility] Comment on above: Performed By: #### C TRAMAINE #### [facility] [address] [place] [address] Dr. Reba Swain MCV 92.4 fL Normal 81.0-99.0 [facility] Comment on above: Performed By: #### C BCNIKI #### [facility] [address] [place] [address] Dr. Reba Swain METAMYELOCYTE # Normal [facility] Comment on above: Performed By: #### C BCNIKI #### [facility] [address] [place] [address] Dr. Reba Swain METAMYELOCYTE % Normal [facility] Comment on above: Performed By: #### C TRAMAINE #### [facility] [address] [place] [address] Dr. Reba Swain MONOM# 0.25 103/ul Critically low 0.30-0.80 [facility] Comment on above: Performed By: #### C TRAMAINE #### [facility] [address] [place] [address] Dr. Reba Swain MONOM% 3.0 % Normal 1.7-12.0 [facility] Comment on above: Performed By: #### C TRAMAINE #### [facility] [address] [place] [address] Dr. Reba Swain MPV 10.3 fL Normal 9.5-13.5 [facility] Comment on above: Performed By: #### C TRAMAINE #### [facility] [address] [place] [address] Dr. Reba Swain MYELOCYTE # Normal [facility] Comment on above: Performed By: #### C TRAMAINE #### [facility] [address] [place] [address] Dr. Reba Swain MYELOCYTE % Normal [facility] Comment on above: Performed By: #### C TRAMAINE #### [facility] [address] [place] [address] Dr. Reba Swain NRBC Normal [facility] Comment on above: Performed By: #### C TRAMAINE #### [facility] [address] [place] [address] Dr. Reba Swain PLT 190 103/ul Normal 150-450 [facility] Comment on above: Performed By: #### C TRAMAINE #### [facility] [address] [place] [address] Dr. Reba Swain RBC 4.58 106/ul Normal 4.20-5.40 [facility] Comment on above: Performed By: #### C TRAMAINE #### [facility] [address] [place] [address] Dr. Reba Swain RDW 13.3 % Normal 11.0-15.0 [facility] Comment on above: Performed By: #### C TRAMAINE #### [facility] [address] [place] [address] Dr. Reba Swain SEG # 7.06 103/ul Critically high 1.40-6.50 [facility] Comment on above: Performed By: #### Lexie REDD #### [facility] [address] [place] [address] Dr. Reba Swain SEG % 85.0 % Critically high 43.0-75.0 [facility] Comment on above: Performed By: #### Lexie REDD #### [facility] [address] [place] [address] Dr. Reba Swain WBC 8.3 103/ul Normal 4.0-11.0 [facility] Comment on above: Performed By: #### Lexie REDD #### [facility] [address] [place] [address] HEAD WO CONon [...] Joe SO Date: 2021-12-21 19:59 Normal [facility] ER URINE PROFILEon 2 Bilirubin Ql (U) Negative Normal NEGATIVE [facility] Comment on above: Performed By: #### ESTEPHANIA HUTCHISON #### [facility] [address] [place] [address] Dr. Reba Swain Clarity (U) CLEAR Normal CLEAR [facility] Comment on above: Performed By: #### ESTEPHANIA HUTCHISON #### [facility] [address] [place], [place] [id number] Dr. Reba Swain Color (U) YELLOW Normal YELLOW [facility] Comment on above: Performed By: #### Amy CONTRERAS UMICRO #### [facility] [address] [address] [address] Reba CHAUDHRY A micrscopic examina tion will be performed if indicated. Normal [facility] Comment on above: Performed By: #### Amy CONTRERAS UMICRO #### [facility] [address] [address] [address] Reba Swain Glucose Ql (U) Negative Normal NEGATIVE [facility] Comment on above: Performed By: #### Amy CONTRERAS UMICRO #### [facility] [address] [address] [address] Reba Swain Hemoglobin Ql (U) Negative Normal NEGATIVE [facility] Comment on above: Performed By: #### Amy CONTRERAS UMICRO #### [facility] [address] [place] [address] Dr. Reba Swain Ketones Ql (U) Negative Normal NEGATIVE [facility] Comment on above: Performed By: #### Amy CONTRERAS UMICRO #### [facility] [address] [place] [address] Dr. Reba Swain LEUKOCYTES Negative Normal NEGATIVE [facility] Comment on above: Performed By: #### Amy CONTRERAS UMICRO #### [facility] [address] [place] [address] Dr. Reba Swain Nitrite Ql (U) Negative Normal NEGATIVE [facility] Comment on above: Performed By: #### Amy CONTRERAS UMICRO #### [facility] [address] [place] [address] Dr. Reba Swain pH (U) 7.0 [pH] Normal 5-9 [facility] Comment on above: Performed By: #### Amy CONTRERAS UMICRO #### [facility] [address] [place] [address] Dr. Reba Swain Protein (U) [Mass/Vol] 100 mg/dL Abnormal NEGATIVE/ TRACE [facility] Comment on above: Performed By: #### Amy CONTRERAS UMICRO #### [facility] [address] [place] [address] Dr. Reba Swain SPEC GRAVITY 1.025 Normal 1.005-<=1.025 [facility] Comment on above: Performed By: #### ESTEPHANIA HUTCHISON #### [facility] [address] [place] [address] Dr. Reba Swain UR MICRO IND INDICATED Normal [facility] Comment on above: Performed By: #### ESTEPHANIA HUTCHISON #### [facility] [address] [place] [address] Dr. Reba Swain Urobilinogen Qn (U) 0.2 {Tamia'U}/dL Normal 0.2 - 1. 0 [facility] Comment on above: Performed By: #### ESTEPHANIA HUTCHISON #### [facility] [address] [place] [address] Dr. Reba Swain PROF CHEM 8 (BAS METB)on Anion gap [Moles/Vol] 14.8 mmol/L Normal [facility] Comment on above: Performed By: #### B MP #### [facility] [address] [place] [address] Dr. Reba Swain Calcium [Mass/Vol] 8.5 mg/dL Normal 8.5-10.1 [facility] Comment on above: Performed By: #### B MP #### [facility] [address] [place] [address] Dr. Reba Swain Chloride [Moles/Vol] 100 mmol/L Normal 98-107 [facility] Comment on above: Performed By: #### B MP #### [facility] [address] [place] [address] Dr. Reba Swain CO2 [Moles/Vol] 23.7 mmol/L Normal 21.0-32.0 [facility] Comment on above: Performed By: #### B MP #### [facility] [address] [place] [address] Dr. Reba Swain Creatinine [Mass/Vol] 0.79 mg/dL Normal 0.55-1.02 [facility] Comment on above: Performed By: #### B MP #### [facility] [address] [address] [address] Reba Swain EGFR-AF MICRONESIAN >60 Normal >=60 [facility] Comment on above: Performed By: #### B MP #### [facility] [address] [address] [address] Reba Swain EGFR-NON AF MICRONESIAN >60 Normal >=60 [facility] Comment on above: Performed By: #### B MP #### [facility] [address] [address] [address] Reba Swain Glucose [Mass/Vol] 107 mg/dL Critically high 74-106 [facility] Comment on above: Performed By: #### B MP #### [facility] [address] [address] [address] Reba Swain Potassium [Moles/Vol] 3.5 mmol/L Normal 3.5-5.1 [facility] Comment on above: Performed By: #### B MP #### [facility] [address] [address] [address] Reba Swain Sodium [Moles/Vol] 135 mmol/L Critically low 136-145 [facility] Comment on above: Performed By: #### B MP #### [facility] [address] [address] [address] Reba Swain Urea nitrogen [Mass/Vol] 9.0 mg/dL Normal 7.0-18.0 [facility] Comment on above: Performed By: #### B MP #### [facility] [address] [address] [address] Reba Swain Urea nitrogen/Creatinine [Mass ratio] 11.4 mg/mg Normal [facility] Comment on above: Performed By: #### B MP #### [facility] [address] [address] [address] Reba Swain TROPONIN, HIGH SENSITIVITYon 12-21-2021 HSTROP 4.3 pg/mL Normal 4.0-51.3 [facility] Comment on above: Result Comment: CUT- OFF POINTS HAVE BEEN ESTABLISHED BASED ON THE FOURTH UNIVERSAL DEFINITIONS OF MYOCARDIAL INFARCTION. THE UPPER REFERENCE LIMIT (URL) OF TROPONIN, DEFINED THE 99TH PERCENTILE OF cTnI DISTRIBUTION IN A REFERENCE POPULATION, HAS BEEN CONFIRMED THE DECISION THRESHOLD FOR PR DIAGNOSIS. Performed By: #### H STROPN #### [facility] [address] [place] [address] Dr. Reba Swain URINE MICROSCOPIC ONLYon BACTERIA SMALL Abnormal NONE SEEN [facility] Comment on above: Performed By: #### E RUR, UMICRO #### [facility] [address] [place] [address] Dr. Reba Swain Bacteria identified Cx Nom (U) INDICATED Normal [facility] Comment on above: Performed By: #### E BESTR, UMICRO #### [facility] [address] [place] [address] Dr. Reba Swain CAST SEEN Abnormal NONE SEEN [facility] Comment on above: Performed By: #### E DIANE UMICRO #### [facility] [address] [place] [address] Dr. Reba Swain Crystals LM Nom (Urine sed) NONE SEEN Normal NONE SEEN [facility] Comment on above: Performed By: #### Amy CONTRERAS UMICRO #### [facility] [address] [place] [address] Dr. Reba Swain Epithelial cells LM Ql (Urine sed) FEW Abnormal NONE SEEN /RARE [facility] Comment on above: Performed By: #### Amy CONTRERAS UMICRO #### [facility] [address] [place] [address] Dr. Reba Swain MUCOUS TRACE Abnormal NONE SEEN [facility] Comment on above: Performed By: #### E RUR, UMICRO #### [facility] [address] [place] [address] Dr. Reba Swain RBC 0-2 Normal 0-2 [facility] Comment on above: Performed By: #### E RUR, UMICRO #### [facility] [address] [place] [address] Dr. Reba Swain WBC 2-5 Abnormal NONE SEEN [facility] Comment on above: Performed By: #### E RUR, UMANANDABELARDO #### [facility] [address] [address] [address] Reba Swain XR lumbar spine min 4V*on XR lumbar spine min 4V* [facility] [employer] [address] [place] [id number] XRay Report Signed Patient: Silver Andujar MR#: [id number] : 1985 Acct:[id number] Age/Sex: 35 / F ADM Date: 01/14/21 [...] Sweeney Jr., M.D.01/14/2021 6:46 PM Dictation Location: [place] [address] Transcribed By: [facility] 01/14/211845 Dictated By: Henrry Sweeney Jr, MD 01/14/211840 Signed By: 01/14/211845 Normal [facility] [id number] 02-16-2020 SARS-CoV-2 Not Detected Normal Not Detected [facility] [place] [facility] Comment on above: Result Comment: (NOT E) Testing was performed using the Aptima SARS-CoV-2 assay. This test was developed and its performance characteristics determined by [employer]. This test has not been FDA cleared [...] result in this assay. Performed At: = [facility] [id number] Macy Ortega MD Ph:[phone] Performed By: #### A COV #### [facility] [address] [place] [id number] Manager Of Selection And Assessment: Bronson Webster MD Vital Signs Date Time Vital Sign Value Performing Clinician Facility 07-15-2023 13:44-0500 Body temperature 98.01 [degF] Priscilla Albert APRN.CNP Work Phone: [facility] [place] [facility] 07-15-2023 13:44-0500 Diastolic blood pressure 81 mm[Hg] Priscilla Albert APRN.SENIOR SUSTAINABILITY CONSULTANT Work Phone: [facility] [place] [facility] 07-15-2023 13:44-0500 Heart rate 89 /min Priscilla Albert APRN.SENIOR SUSTAINABILITY CONSULTANT Work Phone: [facility] [place] [facility] 07-15-2023 13:44-0500 Systolic blood pressure 131 mm[Hg] Priscilla Albert APRN.SENIOR SUSTAINABILITY CONSULTANT Work Phone: [facility] [place] [facility] 12-29-2019 05:16-0400 BMI (Body Mass Index) 37.24 kg/m2 Raheel Ruchi [facility] [place], [place] 12-29-2019 05:16-0400 Body Temperature 97.3 [degF] [facility] [place] 12-29-2019 05:16-0400 Body weight 121.11 kg Raheel Jackson [employer] [place], [place] 12-29-2019 05:16-0400 BP Diastolic 65 mm[Hg] [facility] [place] 12-29-2019 05:16-0400 BP Systolic 114 mm[Hg] Raheel Jackson [employer] [place] 12-29-2019 05:16-0400 Height 180.3 cm [facility] [place] 12-29-2019 05:16-0400 Pulse (Heart Rate) 60 /min [facility] [place] 12-29-2019 05:16-0400 Pulse Oximetry 97 % [facility] [place] 12-29-2019 05:16-0400 Respiratory Rate 18 /min [facility]el [facility] [place] Encounters Encounter Date Encounter Type Care Provider Facility Start: 08-22-2023 End: 08-23-2023 ambulatory Rony Daniels MD Facility: [place] Start: 08-01-2023 End: 08-02-2023 ambulatory Rony Daniels MD Facility: [place] Start: 07-21-2023 End: 07-22-2023 ambulatory [place] ALEXANDER Facility:[facility] Start: 07-18-2023 End: 07-19-2023 ambulatory Rony Daniels MD Facility: [place] Start: 07-15-2023 End: 07-15-2023 ambulatory HENRRY VARGAS Facility:[facility] Start: 07-15-2023 End: 07-15-2023 Patient encounter procedure Priscilla Albert APRN.SENIOR SUSTAINABILITY CONSULTANT Work Phone: [facility] Comment on above: Primary hypertension (Primary Dx) Start: 08-26-2022 End: 08-26-2022 [facility] Start: 06-28-2022 End: 06-28-2022 ambulatory MARIE HENRY Facility: Start: 12-21-2021 End: 12-21-2021 ambulatory MARIE HENRY Facility: Start: 12-11-2021 ambulatory MARIE HENRY Facility: [facility] Start: 09-27-2021 End: 09-27-2021 ambulatory JOSHUA BAILEY Facility:[facility] Start: 08-11-2021 End: 08-11-[address] MARJAN HAILE Facility:[facility] Start: 09-22-2020 End: 09-22-2020 Patient encounter procedure Jaz Iglesias Work Phone: [facility] Start: 08-25-2020 End: 08-25-2020 Patient encounter procedure Jean-Claude Redmond [facility] Start: 02-12-2020 End: 02-13-2020 Patient encounter procedure DUKECherie AURELIA [facility] [place] [facility] Start: 02-12-2020 End: 02-12-2020 Subsequent hospital visit by physician ARIADNA Kerr Start: 12-29-2019 End: 12-29-2019 Emergency department patient visit RAHEEL JACKSON [facility] Start: 12-29-2019 End: 12-29-2019 Emergency department patient visit Raheel Jackson Work Phone: [facility] ED Comment on above: Exposure to needle, [...] 08-17-2026 Tetanus vaccination Tetanus: Every 1 0yrs [facility] Start: 08-17-2026 Urine microalbumin profile DTaP,Tdap,Td Vaccine (2 - Td or Tdap) [facility] Start: 04-15-2023 Covid-19 Vaccine (2022- season) Covid-19 Vaccine ( season) [facility] Start: 04-15-2023 Influenza vaccination Influenza Vacc ine (#1) [facility] Start: 01-01-2023 Depression Assessment Depression Ass essment [facility] Start: 09-22-2020 COVID-19 Vaccine (Moderna) (#2) COVID-19 Vaccine (Moderna) (#2) [facility] Start: 09-22-2020 End: 09-22-2020 Immunization 09/22/2020 Immunization Primary Care Jaz Iglesias MD [address] [facility] [address] [place] [address] [phone] [facility] [employer] [facility] Start: 04-15-2020 Influenza vaccination [place] Start: 04-15-2020 Influenza vaccinatio n given Sequential Influenza Vaccine (#1) [facility] Start: 2013 HPV Testing HPV Testing [facility] Start: 2004 Pap Testing Pap Testing [facility] Start: 2001 Hepatitis C antibody , confirmatory test Hepatitis C Screening [facility] Start: 2001 Hepatitis C Screening Hepatitis C Sc reening [facility] Start: 2001 HIV Screening HIV Screening [facility] Start: 1998 HIV screening HIV Screening [facility] Start: 1995 Adolescent depressio n screening assessment Depression Screening (PHQ9) [facility] Start: 1989 Pneumococcal vaccination Pneumococcal Vaccine (1 - PCV) [facility] Start: 1986 History and physical examination, annual for health maintenance Wellness Visit [facility] Start: 1983 Creatinine measurement Creatinine mo nitoring [place], [place] Start: 1983 Hepatitis B Vaccine (1 of 3 - 3-dose series) Hepatitis B Vaccine (1 of 3 - 3-dose series) [facility] Start: 1983 Potassium monitoring Potassium monit oring [place], [place] Start: 1983 Screening for malign ant neoplasm of cervix Pap Smear [facility] Start: 1983 Tetanus vaccination Tetanus: Every 1 0yrs [facility] End: 02-12-2020 Covid-19 Ambulatory Covid-19 Ambulatory Lab Routine Once for 1 Occurrences starting 02/12/2020 until 02/12/2020 [place], [place] Comment on above: Once for 1 Occurrenc es starting 02/12/2020 until 02/12/2020 Covid-19 Ambulatory Covid-19 Amb ulatory Lab Routine 02/12/2020 7:08 AM EDT [place], [place] Immunizations Immunization Date Immunization Notes Care Provider Olamide chapa 06-04-2022 influenza virus vacc ine, unspecified formulation Priscilla Albert APRN.SENIOR SUSTAINABILITY CONSULTANT Work Phone: [facility] 09-22-2020 Moderna SARS-CoV-2 Vaccination Lizbeth Mcclendon [facility] 08-25-2020 Moderna SARS-CoV-2 Vaccination Jean-Claude Redmond [facility] Payers Date Payer Category Payer Unknown [id number] 2019 Unknown 1985 Unknown [id number] [id number] 1983 Unknown [id number] 2.16.84 [id number] 1983 Unknown [id number] 2.16.84 [id number] 1983 Unknown [id number] 2.16.84 [id number] 1983 Unknown [id number] 2.16.84 [id number] 1983 Unknown [id number] 2.16.84 [id number] 1983 Unknown [id number] 2.16. [id number] 1983 Unknown [id number] 2.16. [id number] 1983 Unknown [id number] 2.16. [id number] 1961 Self-pay [id number] Social History Date Type Detail Facility Start: 12-29-2019 End: 07-15-2023 Tobacco smoking status NHIS Current every day smoker [facility] Start: 12-29-2019 End: 07-15-2023 Cigarettes smoked current (pack per day) [facility]: 12-29-2019 Alcohol intake Lifetime non-d giovanny (finding) [facility] Start: 12-29-2019 History SDOH Alcohol Frequency 1 [facility] Start: 1985 Sex Assigned At [facility] to SARS-CoV -2 (event) [facility] Exposure to SARS-CoV -2 (event) Not sure [facility] History of tobacco use Cigarette Smoker [facility] Start: 07-15-2023 Tobacco use and exposure User of smokeless tobacco [facility] Start: 07-15-2023 Tobacco use panel [facility] Progress note 07-15-2023 Note Date & Type Note Facility 07-15-2023 Note HNO ID: [id number] Author: Priscilla Albert APRN.SENIOR SUSTAINABILITY CONSULTANT Service: ? Author Type: Nurse Practitioner Type: [...] seek emergency care Gayatri Tony, MSN, RN- PRESS OFFICER Student Gayatri Tony, student nurse practitioner, and myself have interviewed the patient. I re-performed the HPI and physical exam. Assessment and plan was developed together. I spent a total of 30 minutes on the date of the service which included preparing to see the patient, [id number] patient care, completing clinical documentation, obtaining and/or reviewing separately obtained history, performing a medically appropriate examination, counseling and educating the patient/family/caregiver, and ordering medications, tests, or procedures. Priscilla lAbert APRN.[facility] History of Present illness Narrative 07-15-2023 Priscilla Albert APRN.SENIOR SUSTAINABILITY CONSULTANT - 07/15/2023 1:49 PM EST Note Date [...] seek emergency care Gayatri Tony, MSN, RN- PRESS OFFICER Student Gayatri Tony, student nurse practitioner, and myself have interviewed the patient. I re-performed the HPI and physical exam. Assessment and plan was developed together. I spent a total of 30 minutes on the date of the service which included preparing to see the patient, [id number] patient care, completing clinical documentation, obtaining and/or reviewing separately obtained history, performing a medically appropriate examination, counseling and educating the patient/family/caregiver, and ordering medications, tests, or procedures. Priscilla Albert APRN.SENIOR SUSTAINABILITY CONSULTANT documented in this encounter [facility] Clinical Note 09-27-2021 Note Date & Type [...] authenticated by: RICARDO WEBB Date: 2021-09-27 13:13 [facility] Evaluation note Note Date & Type Note Facility Evaluation note Diagnosis Primary hypertension- Primary Unspecified essential hypertension documented in this encounter [facility] Discharge Instructions * Instructions* Crystal Little MD - 12/29/2019 Thank you for visiting [facility] Emergency Department. You need to call No primary care provider on file. to make an appointment as directed for follow up. Should you have any questions regarding your care or further treatment, please call [facility] Emergency Department at [phone]. 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 and Living Will [...] section and content) DATE CREATED AUTHOR 03/06/2020 [facility] DATE CREATED AUTHOR AUTHOR'S ORGANIZ ATION 01/30/2021 [facility] DATE CREATED AUTHOR AUTHOR'S ORGANIZ ATION 06/30/2022 [facility] DATE CREATED AUTHOR AUTHOR'S ORGANIZ ATION 08/26/2022 [facility] DATE CREATED AUTHOR AUTHOR'S ORGANIZ ATION 07/18/2023 [facility] DATE CREATED AUTHOR AUTHOR'S ORGANIZ ATION 07/23/2023 [facility] DATE CREATED AUTHOR AUTHOR'S ORGANIZ ATION 09/06/2023 [facility] Source Comments (unrecognize d section and content) In the event this informatio n is protected by the Federal Confidentiality of Alcohol and Drug Abuse Patient Records regulations: The Federal rules restrict any use of the information to criminally investigate or prosecute any alcohol or drug abuse patient.[facility] Care Teams (unrecognized sec tion and content) 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 [facility]. provides no warranty or guarantee of the accuracy or completeness of information in this document.
[2024-03-12 09:56] VITALS: BP 119/79; PULSE 85; TEMP 36.2; O2SAT 95
[2024-03-12 10:53] VITALS: PULSE 67; O2SAT 97
[2024-03-12 10:55] VITALS: BP 129/67
[2024-03-12] MEDS: 0.9 % SODIUM CHLORIDE 10 ML SYRINGE - SALINE FLUSH INJ (10:55)
[2024-03-12] MEDS: BUPIVACAINE HCL 0.25% PF 25 MG/10 ML VIAL INJ (10:56)
[2024-03-12] MEDS: IOHEXOL 240 MG/ML - 10 ML VIAL 24 MG INJ (10:56)
[2024-03-12] MEDS: LIDOCAINE HCL 2% 400 MG/20 ML MDV 4 ML INJ (10:56)
[2024-03-12] MEDS: TRIAMCINOLONE ACETONIDE 40 MG/ML VIAL 80 MG INJ (10:57)
[2024-03-12 10:58] VITALS: BP 120/64; PULSE 65; O2SAT 97
--- NOTE | 2024-03-12 10:58 | W.PM.PROCNOT ---
Date of procedure: 03/12/24 Pre-op diagnosis: Pain due to lumbar stenosis with neurogenic claudication Post-op diagnosis: same as pre-op Procedure: Procedure: Bilateral L4-5 transforaminal epidural steroid injection Medications: Bupivacaine 0.25% 2cc, lidocaine 2% 1cc, kenalog 80mg The patient was seen and examined in the preoperative holding area.? Informed consent was obtained and placed on the chart.? Patient was brought to the medical procedure unit and placed in the prone position where a timeout was completed verifying the correct patient, procedure site, position, and planned special equipment using sterile aseptic technique.? Under direct fluoroscopic visualization a 25-gauge Quincke tipped spinal needle was advanced at level left L4-5 to the designated neural foramen where contrast dye was injected to show adequate spread.? There was no evidence of vascular or adverse uptake.? Epidural spread was appreciated.? The above-mentioned injectate was then placed in a 1.5 mL aliquot preceded by negative aspiration.? The needle was removed. The same procedure, at the same level, was completed on the opposite side. ? Patient was taken to the postprocedural recovery area and monitored for an appropriate length of time before found suitable for discharge in the accompaniment of a responsible adult. Anesthesia: Local Surgeon: Rony Daniels Pathology: none sent Condition: stable Disposition: no change
== END 2024-03-12 11:04 | disposition home or self-care (01) ==
LOC: SURGOUT 09:43
PROVIDERS: PCP Nurse Practitioner Family; Visit Provider Anesthesiology
DX: M48.062 Spinal stenosis, lumbar region with neurogenic claudication (principal)
CPT/HCPCS: 64483; J0665; J3301; Q9966

== ENCOUNTER 2024-03-26 09:26 | Day surgery (SDC) | payer OTHER, SELFPAY ==
[2024-03-26 10:00] VITALS: BP 115/75; PULSE 79; TEMP 36.3; O2SAT 97
[2024-03-26 10:32] VITALS: BP 117/74; PULSE 67; O2SAT 99
[2024-03-26] MEDS: 0.9 % SODIUM CHLORIDE 10 ML SYRINGE - SALINE FLUSH INJ (10:33)
[2024-03-26] MEDS: BUPIVACAINE HCL 0.25% PF 25 MG/10 ML VIAL INJ (10:33)
[2024-03-26] MEDS: IOHEXOL 240 MG/ML - 10 ML VIAL INJ (10:33)
[2024-03-26] MEDS: TRIAMCINOLONE ACETONIDE 40 MG/ML VIAL 80 MG INJ (10:34)
[2024-03-26] MEDS: LIDOCAINE HCL 2% 400 MG/20 ML MDV 5 ML INJ (10:34)
[2024-03-26 10:35] VITALS: BP 118/74; PULSE 70; O2SAT 99
--- NOTE | 2024-03-26 10:37 | W.PM.PROCNOT ---
Date of procedure: 03/26/24 Pre-op diagnosis: Pain due to lumbar stenosis with neurogenic claudication Post-op diagnosis: same as pre-op Procedure: Procedure: Bilateral L5-S1 transforaminal epidural steroid injection Medications: Bupivacaine 0.25% 2cc, lidocaine 2% 1cc, kenalog 80mg The patient was seen and examined in the preoperative holding area.? Informed consent was obtained and placed on the chart.? Patient was brought to the medical procedure unit and placed in the prone position where a timeout was completed verifying the correct patient, procedure site, position, and planned special equipment using sterile aseptic technique.? Under direct fluoroscopic visualization a 25-gauge Quincke tipped spinal needle was advanced at level left L5-S1 to the designated neural foramen where contrast dye was injected to show adequate spread.? There was no evidence of vascular or adverse uptake.? Epidural spread was appreciated.? The above-mentioned injectate was then placed in a 1.5 mL aliquot preceded by negative aspiration.? The needle was removed. The same procedure, at the same level, was completed on the opposite side. ? Patient was taken to the postprocedural recovery area and monitored for an appropriate length of time before found suitable for discharge in the accompaniment of a responsible adult. Anesthesia: Local Surgeon: Rony Daniels Pathology: none sent Condition: stable Disposition: no change
== END 2024-03-26 10:47 | disposition home or self-care (01) ==
LOC: SURGOUT 09:26
PROVIDERS: PCP Nurse Practitioner Family; Visit Provider Anesthesiology
DX: M48.062 Spinal stenosis, lumbar region with neurogenic claudication (principal)
CPT/HCPCS: 64483; J0665; J3301; Q9966

== ENCOUNTER 2024-04-04 09:30 | Outpatient (OUT) | payer OTHER, SELFPAY ==
--- OUTSIDE RECORDS SUMMARY | 2024-04-04 09:44 | XMS_ITS | CCD ---
Author Organization [facility] Care Team Providers Care Net Sql Developer Name Role Phone Unavailable Primary Care Provider [...] Unavailable Frances BARROW, Rony Clifford Attending Unavailable Fracnes BARROW, Rony Clifford Attending Unavailable Frances BARROW, Rony Clifford Attending Unavailable Frances BARROW, Rony Clifford Attending Unavailable Allergies Allergy Classification Reported Allergen(s) Allergy Type Date of Onset Reaction(s) Facility (3 sources) Acetaminophen / oxyCODONE Drug Allergy 04-21-20 18 Itching [place], [place] (3 sources) busPIRone Drug Allergy 04-21-20 18 Other: See Comments [place] (3 sources) Sulfamethoxazole / Trimethoprim Drug Allergy 04-21-20 18 Anaphylaxis [place] (2 sources) Acetaminophen / oxyCODONE; 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: [Percocet] Drug Allergy 08-15-19 15 [facility] (2 sources) Adhesive agent Drug allergy (disorder) 11-28-19 15 [facility] (3 sources) busPIRone; 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: [BuSpar] Drug Allergy 08-07-20 16 [facility] (2 sources) Latex; 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: [Latex] Drug allergy (disorder) [facility] (1 source) Sulfamethoxazole / Trimethoprim Drug Allergy [facility] (1 source) venlafaxine Drug Allergy [facility] (1 source) Adhesive bandage; 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: [Adhesive Bandage] Propensity to adverse reactions (disorder) [facility] Repository (1 source) Sulfamethoxazole / Trimethoprim; 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: [Bactrim] Drug Allergy [facility] Medications Current Medications Medication Drug [...] 06-30-2022 Chronic Other aftercare (1 source) Other pulley worker (current) drug therapy; 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: [OTH DETENTION CURRENT DRUG THERAPY] Onset: 06-30-2022 Episodic Other [...] Interpretation Reference Range Facility [facility] 07-21-2023 Consent [id number] F [facility] In office Testingon 07-21-20 In office Testing [id number] FF [facility] Registrationon 07-21-2023 Registration [id number] F [facility] CNOVon 07-15-2023 CNOV Office Visit (WALKMN ) -------- SILVER ANDUJAR ([id number]) 1985 F Date Time Provider Department 07/15/23 1:45 PM PRISCILLA ALBERT During your visit today, we recorded the following information about you: Temperature Pulse Blood pressure 98 degrees 89/minute 131/81 Priscilla Albert APRN.INSULATION POWER UNIT TENDER 07/15/2023 4:34 PM Signed CC: Headache and high BP HPI: Silver Andujar is a 37 year old female who presents to the [facility] walk in clinic for the above [...] seek emergency care Gayatri Tony, MSN, RN-BC MANAGER RETENTION Student Gayatri Tony, student nurse practitioner, and myself have interviewed the patient. I re-performed the HPI and physical exam. Assessment and plan was developed together. I spent a total of 30 minutes on the date of the service which included preparing to see the patient, [id number] patient care, completing clinical documentation, obtaining and/or reviewing separately obtained history, performing a medically appropriate examination, counseling and educating the patient/family/caregiver , and ordering medications, tests, or procedures. Priscilla Albert APRN.INSULATION POWER UNIT TENDER Referring Provider: SELF [[id number]] Allergies As of Date: 07/15/2023 Noted Allergy Reaction BUSPIRONE 04/21/2018 14 - Other: See Comments OXYCODONE-ACETAMINOPHEN 04/21/2018 9 - Itching SULFAMETHOXAZOLE-TRIMETH OPRIM 04/21/2018 10 - Anaphylaxis Date Reviewed: 07/15/2023 Reviewed by: Priscilla Albert APRN.INSULATION POWER UNIT TENDER - Fully Assessed Reason for Visit: Headache [...] Status:Closed by PRISCILLA ALBERT on 07/15/23 Normal [facility] US DUP LOWER EXTREMITY RIGHT VENon 08-26-2022 [...] Sweeney MD 08/26/22 Final result Normal [facility] Comment on above: Order Comment: Reaso [...] Sweeney MD 08/26/22 Final result Normal [facility] Comment on above: Order Comment: Reaso [...] RICARDO WEBB Date: 2022-06-28 14:32 Normal [facility] CULTURE URINEon 12-22-2021 CULTURE URINE Culture Observations : MODERATE GROWTH OF MIXED SKIN CHARLY. NO POTENTIAL PATHOGENS SEEN. Normal [facility] Comment on above: Performed By: #### U RCX #### [facility] [address] [address] [address] Reba Swain CBC W MANUAL DIFFon 12-22-19 22 ATYPICAL LYMPH # Normal [facility] Comment on above: Performed By: #### C BCMAN #### [facility] [address] [address] [address] Reba Swain ATYPICAL LYMPH % Normal [facility] Comment on above: Performed By: #### C BCMAN #### [facility] [address] [address] [address] Reba Swain BAND # Normal 0.0-0.3 [facility] Comment on above: Performed By: #### C BCMAN #### [facility] [address] [place] [address] Dr. Reba Swain BAND % Normal 0-5 [facility] Comment on above: Performed By: #### C BCMAN #### [facility] [address] [place] [address] Dr. Reba Swain BASOM # 0.08 103/ul Normal 0.00-0.10 [facility] Comment on above: Performed By: #### C BCMAN #### [facility] [address] [place] [address] Dr. Reba Swain BASOM % 1.0 % Normal 0.2-2.0 [facility] Comment on above: Performed By: #### C BCNIKI #### [facility] [address] [place] [address] Dr. Reba Swain BLAST # Normal [facility] Comment on above: Performed By: #### C TRAMAINE #### [facility] [address] [place] [address] Dr. Reba Swain BLAST % Normal [facility] Comment on above: Performed By: #### C BCNIKI #### [facility] [address] [place] [address] Dr. Reba Swain CORRECTED WBC Normal 4.0-11.0 [facility] Comment on above: Performed By: #### C BCNIKI #### [facility] [address] [place] [address] Dr. Reba Swain EOS # 0.08 103/ul Normal 0.00-0.70 [facility] Comment on above: Performed By: #### C BCMAN #### [facility] [address] [place] [address] Dr. Reba Swain EOS% 1.0 % Normal 0.9-7.0 [facility] Comment on above: Performed By: #### C TRAMAINE #### [facility] [address] [place] [address] Dr. Reba Swain HCT 42.3 % Normal 36.0-48.0 [facility] Comment on above: Performed By: #### C TRAMAINE #### [facility] [address] [place] [address] Dr. Reba Swain HGB 14.0 g/dl Normal 12.0-16.0 [facility] Comment on above: Performed By: #### C TRAMAINE #### [facility] [address] [place] [address] Dr. Reba Swain LYMPHM # 0.83 103/ul Critically low 1.20-3.80 [facility] Comment on above: Performed By: #### C TRAMAINE #### [facility] [address] [place] [address] Dr. Reba Swain LYMPHM% 10.0 % Critically low 20.5-60.0 [facility] Comment on above: Performed By: #### C TRAMAINE #### [facility] [address] [place] [address] Dr. Reba Swain MCH 30.6 pg Normal 26.7-34.0 [facility] Comment on above: Performed By: #### C TRAMAINE #### [facility] [address] [place] [address] Dr. Reba Swain MCHC 33.1 g/dl Normal 29.9-35.2 [facility] Comment on above: Performed By: #### C TRAMAINE #### [facility] [address] [place] [address] Dr. Reba Swain MCV 92.4 fL Normal 81.0-99.0 [facility] Comment on above: Performed By: #### C TRAMAINE #### [facility] [address] [place] [address] Dr. Reba Swain METAMYELOCYTE # Normal [facility] Comment on above: Performed By: #### C TRAMAINE #### [facility] [address] [place] [address] Dr. Reba Swain METAMYELOCYTE % Normal [facility] Comment on above: Performed By: #### C TRAMAINE #### [facility] [address] [address] [address] Reba Swain MONOM# 0.25 103/ul Critically low 0.30-0.80 [facility] Comment on above: Performed By: #### C TRAMAINE #### [facility] [address] [place] [address] Dr. Reba Swain MONOM% 3.0 % Normal 1.7-12.0 [facility] Comment on above: Performed By: #### C TRAMAINE #### [facility] [address] [place] [address] Dr. Reba Swain MPV 10.3 fL Normal 9.5-13.5 [facility] Comment on above: Performed By: #### C TRAMAINE #### [facility] [address] [place] [address] Dr. Reba Swain MYELOCYTE # Normal [facility] Comment on above: Performed By: #### C TRAMAINE #### [facility] [address] [place] [address] Dr. Reba Swain MYELOCYTE % Normal [facility] Comment on above: Performed By: #### C TRAMAINE #### [facility] [address] [place] [address] Dr. Reba Swain NRBC Normal [facility] Comment on above: Performed By: #### C TRAMAINE #### [facility] [address] [place] [address] Dr. Reba Swain PLT 190 103/ul Normal 150-450 [facility] Comment on above: Performed By: #### C TRAMAINE #### [facility] [address] [place] [address] Dr. Reba Swain RBC 4.58 106/ul Normal 4.20-5.40 [facility] Comment on above: Performed By: #### C TRAMAINE #### [facility] [address] [place] [address] Dr. Reba Swain RDW 13.3 % Normal 11.0-15.0 [facility] Comment on above: Performed By: #### C TRAMAINE #### [facility] [address] [place] [address] Dr. Reba Swain SEG # 7.06 103/ul Critically high 1.40-6.50 [facility] Comment on above: Performed By: #### Lexie REDD #### [facility] [address] [address] [address] Reba Swain SEG % 85.0 % Critically high 43.0-75.0 [facility] Comment on above: Performed By: #### Lexie REDD #### [facility] [address] [address] [address] Reba Swain WBC 8.3 103/ul Normal 4.0-11.0 [facility] Comment on above: Performed By: #### Lexie REDD #### [facility] [address] [place] [address] HEAD WO CONon [...] Joe SO Date: 2021-12-21 19:59 Normal [facility] ER URINE PROFILEon 2 Bilirubin Ql (U) Negative Normal NEGATIVE [facility] Comment on above: Performed By: #### ESTEPHANIA HUTCHISON #### [facility] [address] [place] [address] Dr. Reba Swain Clarity (U) CLEAR Normal CLEAR [facility] Comment on above: Performed By: #### ESTEPHANIA HUTCHISON #### [facility] [address] [place] [address] Dr. Reba Swain Color (U) YELLOW Normal YELLOW [facility] Comment on above: Performed By: #### E DIANE UMICRO #### [facility] [address] [place] [address] Dr. Reba CHAUDHRY A micrscopic examina tion will be performed if indicated. Normal [facility] Comment on above: Performed By: #### E RUR, UMICRO #### [facility] [address] [place] [address] Dr. Reba Swain Glucose Ql (U) Negative Normal NEGATIVE [facility] Comment on above: Performed By: #### E RUR UMICRO #### [facility] [address] [place] [address] Dr. Reba Swain Hemoglobin Ql (U) Negative Normal NEGATIVE [facility] Comment on above: Performed By: #### E RUR UMICRO #### [facility] [address] [place] [address] Dr. Reba Swain Ketones Ql (U) Negative Normal NEGATIVE [facility] Comment on above: Performed By: #### E RUR UMICRO #### [facility] [address] [place] [address] Dr. Reba Swain LEUKOCYTES Negative Normal NEGATIVE [facility] Comment on above: Performed By: #### E RUR UMICRO #### [facility] [address] [place] [address] Dr. Reba Swain Nitrite Ql (U) Negative Normal NEGATIVE [facility] Comment on above: Performed By: #### E RUR, UMICRO #### [facility] [address] [place] [address] Dr. Reba Swain pH (U) 7.0 [pH] Normal 5-9 [facility] Comment on above: Performed By: #### E RUR, UMICRO #### [facility] [address] [place] [address] Dr. Reba Swain Protein (U) [Mass/Vol] 100 mg/dL Abnormal NEGATIVE/ TRACE [facility] Comment on above: Performed By: #### E RUR, UMICRO #### [facility] [address] [place] [address] Dr. Reba Swain SPEC GRAVITY 1.025 Normal 1.005-<=1.025 [facility] Comment on above: Performed By: #### WESLEY HUTCHISONRO #### [facility] [address] [place] [address] Dr. Reba Swain UR MICRO IND INDICATED Normal [facility] Comment on above: Performed By: #### WESLEY HUTCHISONRO #### [facility] [address] [place] [address] Dr. Reba Swain Urobilinogen Qn (U) 0.2 {Tamia'U}/dL Normal 0.2 - 1. 0 [facility] Comment on above: Performed By: #### ESTEPHANIA HUTCHISON #### [facility] [address] [place] [address] Dr. Reba Swain PROF CHEM 8 (BAS METB)on Anion gap [Moles/Vol] 14.8 mmol/L Normal [facility] Comment on above: Performed By: #### B MP #### [facility] [address] [place] [address] Dr. Reba Swain Calcium [Mass/Vol] 8.5 mg/dL Normal 8.5-10.1 [facility] Comment on above: Performed By: #### B MP #### [facility] [address] [place] [address] Dr. Reba Swain Chloride [Moles/Vol] 100 mmol/L Normal 98-107 [facility] Comment on above: Performed By: #### B MP #### [facility] [address] [place] [address] Dr. Reba Swain CO2 [Moles/Vol] 23.7 mmol/L Normal 21.0-32.0 [facility] Comment on above: Performed By: #### B MP #### [facility] [address] [place] [address] Dr. Reba Swain Creatinine [Mass/Vol] 0.79 mg/dL Normal 0.55-1.02 [facility] Comment on above: Performed By: #### B MP #### [facility] [address] [address] [address] Reba Swain EGFR-AF UZBEK >60 Normal >=60 [facility] Comment on above: Performed By: #### B MP #### [facility] [address] [address] [address] Reba Swain EGFR-NON AF UZBEK >60 Normal >=60 [facility] Comment on above: Performed By: #### B MP #### [facility] [address] [address] [address] Reba Swain Glucose [Mass/Vol] 107 mg/dL Critically high 74-106 [facility] Comment on above: Performed By: #### B MP #### [facility] [address] [place] [address] Dr. Reba Swain Potassium [Moles/Vol] 3.5 mmol/L Normal 3.5-5.1 [facility] Comment on above: Performed By: #### B MP #### [facility] [address] [address] [address] Reba Swain Sodium [Moles/Vol] 135 mmol/L Critically low 136-145 [facility] Comment on above: Performed By: #### B MP #### [facility] [address] [place] [address] Dr. Reba Swain Urea nitrogen [Mass/Vol] 9.0 mg/dL Normal 7.0-18.0 [facility] Comment on above: Performed By: #### B MP #### [facility] [address] [address] [address] Reba Swain Urea nitrogen/Creatinine [Mass ratio] 11.4 mg/mg Normal [facility] Comment on above: Performed By: #### B MP #### [facility] [address] [place] [address] Dr. Reba Swain TROPONIN, HIGH SENSITIVITYon 12-21-2021 HSTROP 4.3 pg/mL Normal 4.0-51.3 [facility] Comment on above: Result Comment: CUT- OFF POINTS HAVE BEEN ESTABLISHED BASED ON THE FOURTH UNIVERSAL DEFINITIONS OF MYOCARDIAL INFARCTION. THE UPPER REFERENCE LIMIT (URL) OF TROPONIN, DEFINED THE 99TH PERCENTILE OF cTnI DISTRIBUTION IN A REFERENCE POPULATION, HAS BEEN CONFIRMED THE DECISION THRESHOLD FOR [place] DIAGNOSIS. Performed By: #### H STROPN #### [facility] [address] [place] [address] Dr. Reba Swain URINE MICROSCOPIC ONLYon BACTERIA SMALL Abnormal NONE SEEN [facility] Comment on above: Performed By: #### E BESTR, UMICRO #### [facility] [address] [place] [address] Dr. Reba Swain Bacteria identified Cx Nom (U) INDICATED Normal [facility] Comment on above: Performed By: #### E DIANE, UMICRO #### [facility] [address] [place] [address] Dr. Reba Swain CAST SEEN Abnormal NONE SEEN [facility] Comment on above: Performed By: #### E DIANE UMICRO #### [facility] [address] [place] [address] Dr. Reba Swain Crystals LM Nom (Urine sed) NONE SEEN Normal NONE SEEN [facility] Comment on above: Performed By: #### Amy CONTRERAS UMICRO #### [facility] [address] [place] [address] Dr. Reba Swain Epithelial cells LM Ql (Urine sed) FEW Abnormal NONE SEEN /RARE [facility] Comment on above: Performed By: #### Amy CONTRERAS UMICRO #### [facility] [address] [place] [address] Dr. Reba Swain MUCOUS TRACE Abnormal NONE SEEN [facility] Comment on above: Performed By: #### E DIANE UMICRO #### [facility] [address] [place] [address] Dr. Reba Swain RBC 0-2 Normal 0-2 [facility] Comment on above: Performed By: #### Amy CONTRERAS, UMICRO #### [facility] [address] [place] [address] Dr. Reba Swain WBC 2-5 Abnormal NONE SEEN [facility] Comment on above: Performed By: #### E ESTEPHANIA CONTRERAS #### [facility] [address] [address] [address] Reba Swain XR lumbar spine min 4V*on XR lumbar spine min 4V* [facility] Main [place] [address] [place] [id number] XRay Report Signed Patient: Silver Andujar MR#: [id number] : 1985 Acct:[id number] Age/Sex: 35 / F ADM Date: 01/14/21 Loc: [place] Room: Type: [facility] CLI Attending Dr: Madonna Torrez [...] Sweeney Jr., M.D.01/14/2021 6:46 PM Dictation Location: [place] [address] Transcribed By: [facility] 01/14/211845 Dictated By: Henrry Sweeney Jr, MD 01/14/211840 Signed By: 01/14/211845 Normal [facility] [id number] 02-16-2020 SARS-CoV-2 Not Detected Normal Not Detected [facility] Comment on above: Result Comment: (NOT E) Testing was performed using the Aptima SARS-CoV-2 assay. This test was developed and its performance characteristics determined by [employer]. This test has not been FDA cleared [...] result in this assay. Performed At: = [facility] [id number] Macy Ortega MD Ph:[phone] Performed By: #### A COV #### [facility] [address] [place] [address] [employer] Supervisor: Bronson Webster MD Vital Signs Date Time Vital Sign Value Performing Clinician Facility 07-15-2023 13:44-0500 Body temperature 98.01 [degF] Priscilla Albert APRN.INSULATION POWER UNIT TENDER Work Phone: [facility] 07-15-2023 13:44-0500 Diastolic blood pressure 81 mm[Hg] Priscilla Albert APRN.INSULATION POWER UNIT TENDER Work Phone: [facility] 07-15-2023 13:44-0500 Heart rate 89 /min Priscilla Albert APRN.INSULATION POWER UNIT TENDER Work Phone: [facility] 07-15-2023 13:44-0500 Systolic blood pressure 131 mm[Hg] Priscilla Albert APRN.INSULATION POWER UNIT TENDER Work Phone: [facility] 12-29-2019 05:16-0400 BMI (Body Mass Index) 37.24 kg/m2 Raheel Ruchi [place], [place] 12-29-2019 05:16-0400 Body Temperature 97.3 [degF] [facility] 12-29-2019 05:16-0400 Body weight 121.11 kg [facility] [place] [place] 12-29-2019 05:16-0400 BP Diastolic 65 mm[Hg] [facility] [place] 12-29-2019 05:16-0400 BP Systolic 114 mm[Hg] [facility] [place] 12-29-2019 05:16-0400 Height 180.3 cm [facility] [place] 12-29-2019 05:16-0400 Pulse (Heart Rate) 60 /min [facility] [place] 12-29-2019 05:16-0400 Pulse Oximetry 97 % [facility] [place] 12-29-2019 05:16-0400 Respiratory Rate 18 /min [facility] Encounters Encounter Date Encounter Type Care Provider Facility Start: 03-12-2024 End: 03-12-2024 ambulatory Rony Daniels MD Facility: [facility] Start: 08-22-2023 End: 08-22-2023 ambulatory Rony Daniels MD Facility: [facility] Start: 08-01-2023 End: 08-01-2023 ambulatory Rony Daniels MD Facility: [facility] Start: 07-21-2023 End: 07-22-2023 ambulatory Laurel ALEXANDER Facility:[facility] Start: 07-18-2023 End: 07-18-2023 ambulatory Rony Daniels MD Facility: [facility] Start: 07-15-2023 End: 07-15-2023 ambulatory HENRRY VARGAS Facility:[facility] Start: 07-15-2023 End: 07-15-2023 Patient encounter procedure Priscilla Albert APRN.INSULATION POWER UNIT TENDER Work Phone: [facility] Comment on above: Primary hypertension (Primary Dx) Start: 08-26-2022 End: 08-26-2022 Emergency department patient visit CARISSA Crespo [facility] Start: 06-28-2022 End: 06-28-2022 ambulatory MARIE HENRY Facility:[facility] Start: 12-21-2021 End: 12-21-2021 ambulatory MARIE HENRY Facility:[facility] Start: 12-11-2021 ambulatory MARIE HENRY Facility: [facility] Start: 09-27-2021 End: 09-27-2021 ambulatory JOSHUA LEO Facility:[facility] Start: 08-11-2021 End: 08-11-[address] MARJAN HAILE Facility:[facility] Start: 09-22-2020 End: 09-22-2020 Patient encounter procedure Jaz Iglesias Work Phone: [facility] Start: 08-25-2020 End: 08-25-2020 Patient encounter procedure Jean-Claude Kendrickjenni [facility] Start: 02-12-2020 End: 02-13-2020 Patient encounter procedure BESSIE MOSES [facility] Start: 02-12-2020 End: 02-12-2020 Subsequent hospital visit by physician [facility] Start: 12-29-2019 End: 12-29-2019 Emergency department patient visit RAHEEL JACKSON [facility] Start: 12-29-2019 End: 12-29-2019 Emergency department patient visit Raheel Jackson Work Phone: [facility] Comment on above: Exposure [...] 08-17-2026 Tetanus vaccination Tetanus: Every 1 0yrs [facility] Start: 08-17-2026 Urine microalbumin profile DTaP,Tdap,Td Vaccine (2 - Td or Tdap) [facility] Start: 04-15-2023 Covid-19 Vaccine (2022- season) Covid-19 Vaccine ( - season) [facility] Start: 04-15-2023 Influenza vaccination Influenza Vacc ine (#1) [facility] Start: 08-15-2022 Depression Assessment Depression Ass essment [facility] Start: 09-22-2020 COVID-19 Vaccine (Moderna) (#2) COVID-19 Vaccine (Moderna) (#2) [facility] Start: 09-22-2020 End: 09-22-2020 Immunization 09/22/2020 Immunization Primary Care Jaz Iglesias MD [address] [facility] [address] [place] [address] [phone] [facility] Start: 04-15-2020 Influenza vaccination [place], [place] Start: 04-15-2020 Influenza vaccinatio n given Sequential Influenza Vaccine (#1) [facility] Start: 2013 HPV Testing HPV Testing [facility] Start: 2004 Pap Testing Pap Testing [facility] Start: 2001 Hepatitis C antibody , confirmatory test Hepatitis C Screening [facility] Start: 2001 Hepatitis C Screening Hepatitis C Sc reening [facility] Start: 2001 HIV Screening HIV Screening [facility] Start: 1998 HIV screening HIV Screening [facility] Start: 1995 Adolescent depressio n screening assessment Depression Screening (PHQ9) [facility] Start: 1989 Pneumococcal vaccination Pneumococcal Vaccine (1 - PCV) [facility] Start: 1986 History and physical examination, annual for health maintenance Wellness Visit [facility] Start: 1983 [place] Hepatitis B Vaccine (1 of 3 - 3-dose series) Hepatitis B Vaccine (1 of 3 - 3-dose series) [facility] Start: 1983 Potassium monitoring Potassium monit [place], [place] Start: 1983 Screening for malign ant neoplasm of cervix Pap Smear [facility] Start: 1983 Tetanus vaccination Tetanus: Every 1 0yrs [facility] End: 02-12-2020 Covid-19 Ambulatory Covid-19 Ambulatory Lab Routine Once for 1 Occurrences starting 02/12/2020 until 02/12/2020 [place], [place] Comment on above: Once for 1 Occurrenc es starting 02/12/2020 until 02/12/2020 Covid-19 Ambulatory Covid-19 Amb ulatory Lab Routine 02/12/2020 7:08 AM EDT [place], [place] Immunizations Immunization Date Immunization Notes Care Provider Fa carmen 06-04-2022 influenza virus vacc ine, unspecified formulation Priscilla Albert APRN.INSULATION POWER UNIT TENDER Work Phone: [facility] 09-22-2020 Moderna SARS-CoV-2 Vaccination [facility] 08-25-2020 Moderna SARS-CoV-2 Vaccination Jean-Claudelucretia Kendrickjenni [facility] Payers Date Payer Category Payer Unknown [id number] 2019 Unknown 1985 Unknown [id number] [id number] 1985 Unknown [id number] 2.16.84 [id number] 1983 Unknown [id number] 2.16.84 [id number] 1983 Unknown [id number] 2.16.84 [id number] 1983 Unknown [id number] 2.16.84 [id number] 1983 Unknown [id number] 2.16.84 [id number] 1983 Unknown [id number] 2.16. [id number] 1983 Unknown [id number] 2.16. [id number] 1983 Unknown [id number] 2.16. [id number] 1983 Unknown [id number] 2.16. [id number] 1961 Self-pay [id number] Self-pay Social History Date Type Detail Facility Start: 12-29-2019 End: 07-15-2023 Tobacco smoking status NHIS Current every day smoker [facility] Start: 12-29-2019 End: 07-15-2023 Cigarettes smoked current (pack per day) - Reported [place] [facility] Start: 12-29-2019 Alcohol intake Lifetime non-d giovanny (finding) [place], [place] Start: 12-29-2019 History SDOH Alcohol Frequency 1 [place], [place] Start: 1985 Sex Assigned At Not on file [place] Exposure to SARS-CoV -2 (event) Unable to assess [place], [place] Exposure to SARS-CoV -2 (event) Not sure [facility] History of tobacco use Cigarette Smoker [facility] Start: 07-15-2023 Tobacco use and exposure User of smokeless tobacco [facility] Start: 07-15-2023 Tobacco use panel [facility] Progress note 07-15-2023 Note Date & Type Note Facility 07-15-2023 Note HNO ID: [id number] Author: Priscilla Albert APRN.INSULATION POWER UNIT TENDER Service: ? Author Type: Nurse Practitioner Type: Progress Notes Filed: 07/15/2023 4:34 PM Note Text: CC: Headache and high BP HPI: Silver Andujar is a 37 year old female who presents to the [facility] walk in clinic for the above [...] seek emergency care Gayatri Tony, MSN, RN-BC MANAGER RETENTION Student Gayatri Tony, student nurse practitioner, and myself have interviewed the patient. I re-performed the HPI and physical exam. Assessment and plan was developed together. I spent a total of 30 minutes on the date of the service which included preparing to see the patient, [id number] patient care, completing clinical documentation, obtaining and/or reviewing separately obtained history, performing a medically appropriate examination, counseling and educating the patient/family/caregiver, and ordering medications, tests, or procedures. Priscilla Albert APRN.INSULATION POWER UNIT TENDER [facility] History of Present illness Narrative 07-15-2023 Priscilla Albert APRN.PABLO - 07/15/2023 1:49 PM EST Note Date & Type Note Facility 07-15-2023 History of Presen t illness Narrative CC: Headache and high BP HPI: Silver Andujar is a 37 year old female who presents to the [facility] walk in clinic for the above [...] seek emergency care Gayatri Tony, MSN, RN-BC MANAGER RETENTION Student Gayatri Tony, student nurse practitioner, and myself have interviewed the patient. I re-performed the HPI and physical exam. Assessment and plan was developed together. I spent a total of 30 minutes on the date of the service which included preparing to see the patient, [id number] patient care, completing clinical documentation, obtaining and/or reviewing separately obtained history, performing a medically appropriate examination, counseling and educating the patient/family/caregiver, and ordering medications, tests, or procedures. Priscilla Albert APRN.INSULATION POWER UNIT TENDER documented in this encounter [facility] Clinical Note 09-27-2021 Note Date & Type [...] authenticated by: RICARDO WEBB Date: 2021-09-27 13:13 [facility] Evaluation note Note Date & Type Note Facility Evaluation note Diagnosis Primary hypertension- Primary Unspecified essential hypertension documented in this encounter [facility] Discharge Instructions * Instructions* Crystal Little MD - 12/29/2019 Thank you for visiting [facility] Emergency Department. You need to call No primary care provider on file. to make an appointment as directed for follow up. Should you have any questions regarding your care or further treatment, please call [facility] Emergency Department at [phone]. 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 Living Will [...] section and content) DATE CREATED AUTHOR 03/06/2020 [facility] DATE CREATED AUTHOR AUTHOR'S ORGANIZ ATION 01/30/2021 [facility] DATE CREATED AUTHOR AUTHOR'S ORGANIZ ATION 06/30/2022 [facility] DATE CREATED AUTHOR AUTHOR'S ORGANIZ ATION 08/26/2022 [facility] DATE CREATED AUTHOR AUTHOR'S ORGANIZ ATION 07/18/2023 [facility] DATE CREATED AUTHOR AUTHOR'S ORGANIZ ATION 07/23/2023 [facility] DATE CREATED AUTHOR AUTHOR'S ORGANIZ ATION 04/03/2024 [facility] Source Comments (unrecognize d section and content) In the event this informatio n is protected by the Federal Confidentiality of Alcohol and Drug Abuse Patient Records regulations: The Federal rules restrict any use of the information to criminally investigate or prosecute any alcohol or drug abuse patient.[facility] Care Teams (unrecognized sec tion and content) Net Sql Developer Relationship Specialty Start Date End Date ZiaHenrry DO PCP - General Family Medicine 10/21/16 [...] BE BASED ON THE PRIMARY CLINICAL RECORDS. [facility]. provides no warranty or guarantee of the accuracy or completeness of information in this document.
--- NOTE | 2024-04-04 09:53 | P.CN_ITS ---
Consult Note: HPI Data of Consult Patient: known to practice within the last 3 years Consult date: 07/18/23 Requesting Physician: Lorna Herring NP Primary Care Provider: MARIE HENRY Consult Narrative Reason for consult: Low back pain, bilateral lower extremity pain Narrative: 38yof who presents for evaluation. worsening low back pain with radiation into lower extremities. continues in provider directed home exercise program >6 weeks >3x/week, has engaged in chiropractice therapy. no relief. imaging reviewed, [facility] shows disc bulging with resultant stenosis at l4-5, l5-s1. has trialed gabapentin, mobic, robaxin, gabapentin, tylenol with limited benefit. denies adverse med side effects. Patient has reported improvement in pain and functional ability with tylenol #3 BID PRN, without side effects. Patient reporting >50% improvement in pain since bilateral L4 TFESI and bilateral L5 TFESI. Patient rating pain 4/10 in low back increasing to 8/10 at its worst. Reports heaviness/weakness in BLE. Pain increased with all activity and improved with lying down and heat. Continues to have moderate to severe axial low back pain with standing, activity, twisting, bending. cc:: CC: Lorna Herring NP Review of Systems ROS Status of ROS 10 or more systems reviewed and unremark able except as noted in history and below Musculoskeletal Reports: back pain and extremity pain PFSH PFSH Social History Smoking status: Current every day smoker Meds Home Medications and Allergies Home Medications ?Medication ?Instructions ?Recorded ?Confirmed ?Type citalopram 40 mg tablet 40 mg PO DAILY 06/16/23 03/26/24 History hydrochlorothiazide 25 mg tablet 25 mg PO DAILY 06/16/23 03/26/24 History lisinopril 20 mg tablet 20 mg PO DAILY 06/16/23 03/26/24 History metoprolol succinate 25 mg 25 mg PO DAILY 06/16/23 03/26/24 History tablet,extended release 24 hr acetaminophen 500 mg tablet 1,000 mg PO DAILY PRN pain 07/18/23 03/26/24 History (Acetaminophen Pain Relief) biotin 10,000 mcg capsule 10,000 mcg PO DAILY 07/18/23 03/26/24 History meloxicam 15 mg tablet 15 mg PO DAILY 07/18/23 03/26/24 History topiramate 50 mg tablet (Topamax) 50 mg PO BID 08/22/23 03/12/24 History acetaminophen 300 mg-codeine 30 mg 1 tab PO BID PRN pain #45 tabs 11/03/2303/15 Rx tablet doxepin 10 mg capsule mg 03/26/24 History acetaminophen 300 mg-codeine 30 mg 1 tab PO BID PRN pain #45 tabs 03/28/24 Rx tablet gabapentin 600 mg tablet 600 mg PO BID 04/04/24 04/04/24 History gabapentin 600 mg tablet 600 mg PO BID #60 tabs 04/04/24 Rx hydroxyzine HCl 25 mg tablet 25 mg PO TID PRN anxiety 04/04/24 04/04/24 History Allergies Allergy/AdvReac Type Severity Reaction Status Date / Time buspirone [From BuSpar] Allergy Severe Migraine Verified 03/26/24 10:02 sulfamethoxazole Allergy Severe Anaphylaxis Verified 03/26/24 10:02 [From Bactrim] trimethoprim [From Bactrim] Allergy Severe Anaphylaxis Verified 03/26/24 10:02 venlafaxine [From Effexor] Allergy Severe syncope Verified 03/26/24 10:02 oxycodone [From Percocet] AdvReac Severe Anxiety Verified 03/26/24 10:02 Exam Constitutional Documenting provider has reviewed patient's vital signs: yes Common normals: no apparent distress, oriented x3, healthy appearing, alert and well nourished General appearance: cooperative [facility] Common normals: normocephalic, hearing grossly normal bilaterally and moist oral mucous membranes Head and scalp: normocephalic Eye Common normals: PERRL Pupil: PERRL Neck & C-Spine Common normals: full ROM General: normal visual inspection Chest Common normals: inspection of chest normal Respiratory Common normals: normal respiratory effort, no retractions and no use of accessory muscles Back & Pelvis Lumbar spine/lower back: ROM limited, pain with ROM and straight leg raise positive left Sacroiliac joints: SI joint(s) abnormal Other: bilateral sij positive klaus(patricks), gaenslens, thigh thrust, compression test bilateral facet loading positive tenderness over L3-S1 facets improved radicular symptoms on exam, sensation intact BLE strength 5/5 in BLE Extremity Common normals: normal to inspection and full ROM Neuro Common normals: oriented x3, CN's II-XII intact bilaterally, moves all extremities, no focal motor deficits, no sensory deficits noted, deep tendon reflexes 2+ bilaterally and gait normal Sensorium/orientation: alert Motor exam: strength 5/5 throughout and no movement abnormalities noted Psych Common normals: mental status grossly normal, thought process normal, cooperative, affect normal, speech normal and activity/motor behavior normal Speech: normal speech Thought process: normal thought process Results Additional Findings Additional findings: If on a controlled substance or opioids, I have checked an [place] report on this patient and there are no aberrancies noted in the prescribing history.??If on a controlled substance or opioid a drug screen was completed and reviewed within t he last year, and if there has not been a drug screen completed we ordered one today to monitor higher risk, state monitored pain medication use. As part of providing excellent, safe, comprehensive care, the following was completed at our patient's visit: 1. A medication reconciliation and review to ensure accurate knowledge of current/active medications, including asking our patients to inform us about any [id number]-[id number] medications or herbal remedies/nutritional supplements/alternative remedies. 2. A review to specifically ensure our patients have had annual screening for screening for depression, screening for tobacco use, and screening for unhealthy alcohol use. For concerning screenings had a discussion with the patient, provided patient education, and recommended follow-up with primary care provider when appropriate. If patient noted with a risk of falling, they received education on strength, gait, and balance training to prevent future risk of falling. Assessment and Plan Assessment and Plan (1) Lumbar stenosis with neurogenic claudication: (2) Lumbar spondylosis: Assessment and Plan: The patient has had over 3 months of moderate to severe low back pain with functional impairment and inadequate response to conservative care including NSAIDS (unless there are contraindication such as concurrent blood thinners), multiple oral or topical pain medications, and home exercise program/physical therapy.? Patient has completed >6 weeks of guided home exercise program and/or formal physical therapy program without relief of their symptoms.? We discussed the risks and benefits of the procedure with the patient, and we are NOT planning on using sedation as outlined in the guidelines from Medicare unless there is a documented reason that sedation would be strongly recommended.?? ?The procedure will be completed with fluoroscopic guidance.? (3) Chronic prescription opiate use: Assessment and Plan: I feel these medications are improving the patient's quality of life and allow them to tolerate activities of daily living as well as participate in recreational activity.? The patient does not report intolerable side effects. The patient is NOT opioid naive and non-pharmacologic and non-opioid treatment has failed to significantly relieve the patient's pain and improve functionality. The patient has a diagnosis that is related to a somatic or visceral pain etiology. ? ?? I reviewed with the patient the potential risks and side effects with the use of? opioid medications including but not limited to respiratory depression,? sedation, and even . I verified the patient has access to naloxone should? these effects occur. I advised the patient to avoid the use of any other? sedation substances including alcohol, THC, and benzodiazepines while? taking opioid medications due to the risk of compounding side effects and? detrimental outcomes. I reviewed the [employer], pain treatment agreement, urine? drug screen, and opioid start talking forms. The patient was advised to let? their family know they had Naloxone in case they would need to administer? the medication.? ?? A drug screen was completed within the last year, and no aberrancies were noted regarding their use of controlled substances. The patient understands they are subject to the terms and conditions of the pain contract that they have signed. ? ?? I have checked an [place]AR[place] report on this patient today and there are no aberrancies noted in the prescribing history.? (4) Sacroiliitis: Plan bilateral L4-5 L5-S1 MBB X2 working towards RFA for chronic axial low back pain unresponsive to above listed medications, HEP greater than 6 weeks, NSAIDs, heat/ice continue current medications, tolerating well without side effects. noticing functional improvement for 6 hours after each dose update lumbar xray with flexion f/u after each injection
== END 2024-04-04 09:31 | disposition home or self-care (01) ==
PROVIDERS: PCP Nurse Practitioner Family; Visit Provider Nurse Practitioner
DX: M48.062 Spinal stenosis, lumbar region with neurogenic claudication (principal); M47.816 Spondylosis without myelopathy or radiculopathy, lumbar region; Z79.891 Long term (current) use of opiate analgesic
CPT/HCPCS: G0463

== ENCOUNTER 2024-04-04 09:59 | Outpatient (OUT) | payer OTHER, SELFPAY ==
--- NOTE | 2024-04-04 10:09 | XR_ITS ---
The [address] [address] Patient Name: SILVER ANDUJAR MRN: [id number] date: 1985 Sex: F Assigned Patient Location: [facility] Current Patient Location: Accession/Order Number: [id number] Exam Date: 04/04/2024 10:15 Report Date: 04/05/2024 06:41 At the request of: ADAN VALDEZ Procedure: XR lumbar spine 6V w bending EXAMINATION: XR lumbar spine 6V w bending HISTORY: Lumbar Stenosis ; chronic left leg numbness COMPARISON: CT abdomen pelvis 10/13/2023 FINDINGS: BONES: No significant spondylosis, scoliosis, fracture, or visible bony lesion. No change in alignment during flexion and extension. DISC SPACES: Mild narrowing L3-L4, L5-S1. Moderate to marked narrowing L4-L5. PARASPINOUS: Negative. No paraspinous abnormality is seen. OTHER: Negative. XR/XR lumbar spine 6V w bending IMPRESSION: 1. Stable degenerative disc disease of lower lumbar spine, greatest at L4-L5. Consider MRI for further evaluation if symptoms persist. Electronically authenticated by: ISABELLE BLANKENSHIP Date: 04/05/2024 06:41
--- OUTSIDE RECORDS SUMMARY | 2024-04-04 10:16 | XMS_ITS | CCD ---
Author Organization [facility] Care Team Providers Care Pole Framer Name Role Phone Unavailable Primary Care Provider [...] Attending Unavailable UMBERTO SO Consulting Unavailable MARIE HERNY Primary Care Unavailable DR TERRANCE ALLISON Admitting [...] / oxyCODONE Drug Allergy 04-21-20 18 Itching [place], [place] (3 sources) busPIRone Drug Allergy 04-21-20 18 Other: See Comments [place], [place] (3 sources) Sulfamethoxazole / Trimethoprim Drug Allergy 04-21-20 18 Anaphylaxis [place], [place] (2 sources) Acetaminophen / oxyCODONE; 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: [Percocet] Drug Allergy 08-15-19 15 [facility] Repository (2 sources) Adhesive agent Drug allergy (disorder) 11-28-19 15 [facility] Rep[facility] (3 sources) busPIRone; 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: [BuSpar] Drug Allergy 08-07-20 16 [facility] Rep[facility] (2 sources) Latex; 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: [Latex] Drug allergy (disorder) [facility] Rep[facility] (1 source) Sulfamethoxazole / Trimethoprim Drug Allergy [facility] Rep[facility] (1 source) venlafaxine Drug Allergy [facility] (1 source) Adhesive bandage; 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: [Adhesive Bandage] Propensity to adverse reactions (disorder) [facility] Repository (1 source) Sulfamethoxazole / Trimethoprim; 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: [Bactrim] Drug Allergy [facility] Repository Medications Current Medications Medication Drug Class(es) [...] 06-30-2022 Chronic Other aftercare (1 source) Other remote computer terminal operator (current) drug therapy; 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: [OTH SENIOR CARE CURRENT DRUG THERAPY] Onset: 06-30-2022 Episodic Other [...] Interpretation Reference Range Facility [facility] 07-21-2023 Consent [id number] F [facility] In office Testingon 07-21-20 In office Testing [id number] FF [facility] Registrationon 07-21-2023 Registration [id number] F [facility] CNOVon 07-15-2023 CNOV Office Visit (WALKMN ) -------- SILVER ANDUJAR ([id number]) 1985 F Date Time Provider Department 07/15/23 1:45 PM PRISCILLA ALBERT During your visit today, we recorded the following information about you: Temperature Pulse Blood pressure 98 degrees 89/minute 131/81 Priscilla Albert APRN.GAS LOAD DISPATCHER 07/15/2023 4:34 PM Signed CC: Headache and high BP HPI: Silver Andujar is a 37 year old female who presents to the [facility] walk in clinic for the above [...] seek emergency care Gayatri Tony, MSN, RN-BC LAND COMMISSIONER Student Gayatri Tony, student nurse practitioner, and myself have interviewed the patient. I re-performed the HPI and physical exam. Assessment and plan was developed together. I spent a total of 30 minutes on the date of the service which included preparing to see the patient, [id number] patient care, completing clinical documentation, obtaining and/or reviewing separately obtained history, performing a medically appropriate examination, counseling and educating the patient/family/caregiver , and ordering medications, tests, or procedures. Priscilla Albert APRN.GAS LOAD DISPATCHER Referring Provider: SELF [[id number]] Allergies As of Date: 07/15/2023 Noted Allergy Reaction BUSPIRONE 04/21/2018 14 - Other: See Comments OXYCODONE-ACETAMINOPHEN 04/21/2018 9 - Itching SULFAMETHOXAZOLE-TRIMETH OPRIM 04/21/2018 10 - Anaphylaxis Date Reviewed: 07/15/2023 Reviewed by: Priscilla Albert APRN.GAS LOAD DISPATCHER - Fully Assessed Reason for Visit: Headache [...] by PRISCILLA ALBERT on 07/15/23 Normal [facility] US DUP LOWER EXTREMITY RIGHT VENon [...] RICARDO WEBB Date: 2022-06-28 14:32 Normal [facility] CULTURE URINEon 12-22-2021 CULTURE URINE Culture Observations : MODERATE GROWTH OF MIXED SKIN CHARLY. NO POTENTIAL PATHOGENS SEEN. Normal [facility] Comment on above: Performed By: #### U RCX #### [facility] [address] [address] [address] Reba Swain CBC W MANUAL DIFFon 12-22-19 22 ATYPICAL LYMPH # Normal [facility] Comment on above: Performed By: #### C BCMAN #### [facility] [address] [address] [address] Reba Swain ATYPICAL LYMPH % Normal [facility] Comment on above: Performed By: #### C BCMAN #### [facility] [address] [address] [address] Reba Swain BAND # Normal 0.0-0.3 [facility] Comment on above: Performed By: #### C BCMAN #### [facility] [address] [place] [address] Dr. Reba Swain BAND % Normal 0-5 [facility] Comment on above: Performed By: #### C BCMAN #### [facility] [address] [place] [address] Dr. Reba Swain BASOM # 0.08 103/ul Normal 0.00-0.10 [facility] Comment on above: Performed By: #### C BCMAN #### [facility] [address] [place] [address] Dr. Reba Swain BASOM % 1.0 % Normal 0.2-2.0 [facility] Comment on above: Performed By: #### C BCNIKI #### [facility] [address] [place] [address] Dr. Reba Swain BLAST # Normal [facility] Comment on above: Performed By: #### C TRAMAINE #### [facility] [address] [place] [address] Dr. Reba Swain BLAST % Normal [facility] Comment on above: Performed By: #### C BCNIKI #### [facility] [address] [place] [address] Dr. Reba Swain CORRECTED WBC Normal 4.0-11.0 [facility] Comment on above: Performed By: #### C BCNIKI #### [facility] [address] [place] [address] Dr. Reba Swain EOS # 0.08 103/ul Normal 0.00-0.70 [facility] Comment on above: Performed By: #### C BCMAN #### [facility] [address] [place] [address] Dr. Reba Swain EOS% 1.0 % Normal 0.9-7.0 [facility] Comment on above: Performed By: #### C TRAMAINE #### [facility] [address] [place] [address] Dr. Reba Swain HCT 42.3 % Normal 36.0-48.0 [facility] Comment on above: Performed By: #### C TRAMAINE #### [facility] [address] [place] [address] Dr. Reba Swain HGB 14.0 g/dl Normal 12.0-16.0 [facility] Comment on above: Performed By: #### C TRAMAINE #### [facility] [address] [place] [address] Dr. Reba Swain LYMPHM # 0.83 103/ul Critically low 1.20-3.80 [facility] Comment on above: Performed By: #### C TRAMAINE #### [facility] [address] [place] [address] Dr. Reba Swain LYMPHM% 10.0 % Critically low 20.5-60.0 [facility] Comment on above: Performed By: #### C TRAMAINE #### [facility] [address] [place] [address] Dr. Reba Swain MCH 30.6 pg Normal 26.7-34.0 [facility] Comment on above: Performed By: #### C TRAMAINE #### [facility] [address] [place] [address] Dr. Reba Swain MCHC 33.1 g/dl Normal 29.9-35.2 [facility] Comment on above: Performed By: #### C TRAMAINE #### [facility] [address] [place] [address] Dr. Reba Swain MCV 92.4 fL Normal 81.0-99.0 [facility] Comment on above: Performed By: #### C TRAMAINE #### [facility] [address] [place] [address] Dr. Reba Swain METAMYELOCYTE # Normal [facility] Comment on above: Performed By: #### C TRAMAINE #### [facility] [address] [place] [address] Dr. Reba Swain METAMYELOCYTE % Normal [facility] Comment on above: Performed By: #### C TRAMAINE #### [facility] [address] [address] [address] Reba Swain MONOM# 0.25 103/ul Critically low 0.30-0.80 [facility] Comment on above: Performed By: #### C TRAMAINE #### [facility] [address] [place] [address] Dr. Reba Swain MONOM% 3.0 % Normal 1.7-12.0 [facility] Comment on above: Performed By: #### C TRAMAINE #### [facility] [address] [place] [address] Dr. Reba Swain MPV 10.3 fL Normal 9.5-13.5 [facility] Comment on above: Performed By: #### C TRAMAINE #### [facility] [address] [place] [address] Dr. Reba Swain MYELOCYTE # Normal [facility] Comment on above: Performed By: #### C TRAMAINE #### [facility] [address] [place] [address] Dr. Reba Swain MYELOCYTE % Normal [facility] Comment on above: Performed By: #### C TRAMAINE #### [facility] [address] [place] [address] Dr. Reba Swain NRBC Normal [facility] Comment on above: Performed By: #### C TRAMAINE #### [facility] [address] [place] [address] Dr. Reba Swain PLT 190 103/ul Normal 150-450 [facility] Comment on above: Performed By: #### C TRAMAINE #### [facility] [address] [place] [address] Dr. Reba Swain RBC 4.58 106/ul Normal 4.20-5.40 [facility] Comment on above: Performed By: #### C TRAMAINE #### [facility] [address] [place] [address] Dr. Reba Swain RDW 13.3 % Normal 11.0-15.0 [facility] Comment on above: Performed By: #### C TRAMAINE #### [facility] [address] [place] [address] Dr. Reba Swain SEG # 7.06 103/ul Critically high 1.40-6.50 [facility] Comment on above: Performed By: #### Lexie REDD #### [facility] [address] [address] [address] Reba Swain SEG % 85.0 % Critically high 43.0-75.0 [facility] Comment on above: Performed By: #### Lexie REDD #### [facility] [address] [address] [address] Reba Swain WBC 8.3 103/ul Normal 4.0-11.0 [facility] Comment on above: Performed By: #### Lexie REDD #### [facility] [address] [place] [address] HEAD WO CONon [...] Joe SO Date: 2021-12-21 19:59 Normal [facility] ER URINE PROFILEon 2 Bilirubin Ql (U) Negative Normal NEGATIVE [facility] Comment on above: Performed By: #### ESTEPHANIA HUTCHISON #### [facility] [address] [place] [address] Dr. Reba Swain Clarity (U) CLEAR Normal CLEAR [facility] Comment on above: Performed By: #### ESTEPHANIA HUTCHISON #### [facility] [address] [place] [address] Dr. Reba Swain Color (U) YELLOW Normal YELLOW [facility] Comment on above: Performed By: #### E DIANE UMICRO #### [facility] [address] [place] [address] Dr. Reba CHAUDHRY A micrscopic examina tion will be performed if indicated. Normal [facility] Comment on above: Performed By: #### E RUR, UMICRO #### [facility] [address] [place] [address] Dr. Reba Swain Glucose Ql (U) Negative Normal NEGATIVE [facility] Comment on above: Performed By: #### E RUR UMICRO #### [facility] [address] [place] [address] Dr. Reba Swain Hemoglobin Ql (U) Negative Normal NEGATIVE [facility] Comment on above: Performed By: #### E RUR UMICRO #### [facility] [address] [place] [address] Dr. Reba Swain Ketones Ql (U) Negative Normal NEGATIVE [facility] Comment on above: Performed By: #### E RUR UMICRO #### [facility] [address] [place] [address] Dr. Reba Swain LEUKOCYTES Negative Normal NEGATIVE [facility] Comment on above: Performed By: #### E RUR UMICRO #### [facility] [address] [place] [address] Dr. Reba Swain Nitrite Ql (U) Negative Normal NEGATIVE [facility] Comment on above: Performed By: #### E RUR, UMICRO #### [facility] [address] [place] [address] Dr. Reba Swain pH (U) 7.0 [pH] Normal 5-9 [facility] Comment on above: Performed By: #### E RUR, UMICRO #### [facility] [address] [place] [address] Dr. Reba Swain Protein (U) [Mass/Vol] 100 mg/dL Abnormal NEGATIVE/ TRACE [facility] Comment on above: Performed By: #### E RUR, UMICRO #### [facility] [address] [place] [address] Dr. Reba Swain SPEC GRAVITY 1.025 Normal 1.005-<=1.025 [facility] Comment on above: Performed By: #### WESLEY HUTCHISONRO #### [facility] [address] [place] [address] Dr. Reba Swain UR MICRO IND INDICATED Normal [facility] Comment on above: Performed By: #### WESLEY HUTCHISONRO #### [facility] [address] [place] [address] Dr. Reba Swain Urobilinogen Qn (U) 0.2 {Tamia'U}/dL Normal 0.2 - 1. 0 [facility] Comment on above: Performed By: #### ESTEPHANIA HUTCHISON #### [facility] [address] [place] [address] Dr. Reba Swain PROF CHEM 8 (BAS METB)on Anion gap [Moles/Vol] 14.8 mmol/L Normal [facility] Comment on above: Performed By: #### B MP #### [facility] [address] [place] [address] Dr. Reba Swain Calcium [Mass/Vol] 8.5 mg/dL Normal 8.5-10.1 [facility] Comment on above: Performed By: #### B MP #### [facility] [address] [place] [address] Dr. Reba Swain Chloride [Moles/Vol] 100 mmol/L Normal 98-107 [facility] Comment on above: Performed By: #### B MP #### [facility] [address] [place] [address] Dr. Reba Swain CO2 [Moles/Vol] 23.7 mmol/L Normal 21.0-32.0 [facility] Comment on above: Performed By: #### B MP #### [facility] [address] [place] [address] Dr. Reba Swain Creatinine [Mass/Vol] 0.79 mg/dL Normal 0.55-1.02 [facility] Comment on above: Performed By: #### B MP #### [facility] [address] [address] [address] Reba Swain EGFR-AF MOROCCAN >60 Normal >=60 [facility] Comment on above: Performed By: #### B MP #### [facility] [address] [address] [address] Reba Swain EGFR-NON AF MOROCCAN >60 Normal >=60 [facility] Comment on above: Performed By: #### B MP #### [facility] [address] [address] [address] Reba Swain Glucose [Mass/Vol] 107 mg/dL Critically high 74-106 [facility] Comment on above: Performed By: #### B MP #### [facility] [address] [place] [address] Dr. Reba Swain Potassium [Moles/Vol] 3.5 mmol/L Normal 3.5-5.1 [facility] Comment on above: Performed By: #### B MP #### [facility] [address] [address] [address] Reba Swain Sodium [Moles/Vol] 135 mmol/L Critically low 136-145 [facility] Comment on above: Performed By: #### B MP #### [facility] [address] [place] [address] Dr. Reba Swain Urea nitrogen [Mass/Vol] 9.0 mg/dL Normal 7.0-18.0 [facility] Comment on above: Performed By: #### B MP #### [facility] [address] [address] [address] Reba Swain Urea nitrogen/Creatinine [Mass ratio] 11.4 mg/mg Normal [facility] Comment on above: Performed By: #### B MP #### [facility] [address] [place] [address] Dr. Reba Swain TROPONIN, HIGH SENSITIVITYon 12-21-2021 HSTROP 4.3 pg/mL Normal 4.0-51.3 [facility] Comment on above: Result Comment: CUT- OFF POINTS HAVE BEEN ESTABLISHED BASED ON THE FOURTH UNIVERSAL DEFINITIONS OF MYOCARDIAL INFARCTION. THE UPPER REFERENCE LIMIT (URL) OF TROPONIN, DEFINED THE 99TH PERCENTILE OF cTnI DISTRIBUTION IN A REFERENCE POPULATION, HAS BEEN CONFIRMED THE DECISION THRESHOLD FOR DC DIAGNOSIS. Performed By: #### H STROPN #### [facility] [address] [place] [address] Dr. Reba Swain URINE MICROSCOPIC ONLYon BACTERIA SMALL Abnormal NONE SEEN [facility] Comment on above: Performed By: #### E BESTR, UMICRO #### [facility] [address] [place] [address] Dr. Reba Swain Bacteria identified Cx Nom (U) INDICATED Normal [facility] Comment on above: Performed By: #### E DIANE, UMICRO #### [facility] [address] [place] [address] Dr. Reba Swain CAST SEEN Abnormal NONE SEEN [facility] Comment on above: Performed By: #### E DIANE UMICRO #### [facility] [address] [place] [address] Dr. Reba Swain Crystals LM Nom (Urine sed) NONE SEEN Normal NONE SEEN [facility] Comment on above: Performed By: #### Amy CONTRERAS UMICRO #### [facility] [address] [place] [address] Dr. Reba Swain Epithelial cells LM Ql (Urine sed) FEW Abnormal NONE SEEN /RARE [facility] Comment on above: Performed By: #### Amy CONTRERAS UMICRO #### [facility] [address] [place] [address] Dr. Reba Swain MUCOUS TRACE Abnormal NONE SEEN [facility] Comment on above: Performed By: #### E DIANE UMICRO #### [facility] [address] [place] [address] Dr. Reba Swain RBC 0-2 Normal 0-2 [facility] Comment on above: Performed By: #### Amy CONTRERAS, UMICRO #### [facility] [address] [place] [address] Dr. Reba Swain WBC 2-5 Abnormal NONE SEEN [facility] Comment on above: Performed By: #### E ESTEPHANIA CONTRERAS #### [facility] [address] [address] [address] Reba Swain XR lumbar spine min 4V*on XR lumbar spine min 4V* [facility] [address] [place] [id number] XRay Report Signed Patient: Silver Andujar MR#: [id number] : 1985 Acct:[id number] Age/Sex: 35 / F ADM Date: 01/14/21 Loc: [place] Room: Type: [facility] CLI Attending Dr: Madonna Torrez NP [...] Sweeney Jr., M.D.01/14/2021 6:46 PM Dictation Location: [address] [address] Transcribed By: [facility] 01/14/211845 Dictated By: Henrry Sweeney Jr, MD 01/14/211840 Signed By: 01/14/211845 Normal [facility] [id number] 02-16-2020 SARS-CoV-2 Not Detected Normal Not Detected [facility] Comment on above: Result Comment: (NOT E) Testing was performed using the Aptima SARS-CoV-2 assay. This test was developed and its performance characteristics determined by [employer]. This test has not been FDA cleared [...] result in this assay. Performed At: = [address] [id number] Macy Ortega MD Ph:[phone] Performed By: #### A COV #### [facility] [address] [place] [address] Registered Nurse Step Down: Bronson Webster MD Vital Signs Date Time Vital Sign Value Performing Clinician Facility 07-15-2023 13:44-0500 Body temperature 98.01 [degF] Priscilla Albert APRN.GAS LOAD DISPATCHER Work Phone: [facility] 07-15-2023 13:44-0500 Diastolic blood pressure 81 mm[Hg] Priscilla Albert APRN.GAS LOAD DISPATCHER Work Phone: [facility] 07-15-2023 13:44-0500 Heart rate 89 /min Priscilla Albert APRN.GAS LOAD DISPATCHER Work Phone: [facility] 07-15-2023 13:44-0500 Systolic blood pressure 131 mm[Hg] Priscilla Albert APRN.GAS LOAD DISPATCHER Work Phone: [facility] 12-29-2019 05:16-0400 BMI (Body Mass Index) 37.24 kg/m2 Raheel Ruchi [place] 12-29-2019 05:16-0400 Body Temperature 97.3 [degF] Raheel Jackson [facility] 12-29-2019 05:16-0400 Body weight 121.11 kg [facility] [place] [place] 12-29-2019 05:16-0400 BP Diastolic 65 mm[Hg] [facility] [place] 12-29-2019 05:16-0400 BP Systolic 114 mm[Hg] [facility] [place] 12-29-2019 05:16-0400 Height 180.3 cm [facility] [place] 12-29-2019 05:16-0400 Pulse (Heart Rate) 60 /min [facility] [place] 12-29-2019 05:16-0400 Pulse Oximetry 97 % [facility] [place] 12-29-2019 05:16-0400 Respiratory Rate 18 /min [facility] Encounters Encounter Date Encounter Type Care Provider Facility Start: 03-12-2024 End: 03-12-2024 ambulatory Rony Daniels MD Facility: [facility] Start: 08-22-2023 End: 08-22-2023 ambulatory Rony Daniels MD Facility: [facility] Start: 08-01-2023 End: 08-01-2023 ambulatory Rony Daniels MD Facility: [facility] Start: 07-21-2023 End: 07-22-2023 ambulatory Laurel ALEXANDER Facility:[facility] Start: 07-18-2023 End: 07-18-2023 ambulatory Rony Daniels MD Facility: [facility] Start: 07-15-2023 End: 07-15-2023 ambulatory HENRRY VARGAS Facility:[facility] Start: 07-15-2023 End: 07-15-2023 Patient encounter procedure Priscilla Albert APRN.GAS LOAD DISPATCHER Work Phone: [facility] Comment on above: Primary hypertension (Primary Dx) Start: 08-26-2022 End: 08-26-2022 Emergency department patient visit CARISSA Crespo [facility] Start: 06-28-2022 End: 06-28-2022 ambulatory MARIE HENRY Facility:[facility] Start: 12-21-2021 End: 12-21-2021 ambulatory MARIE HENRY Facility:[facility] Start: 12-11-2021 ambulatory MARIE HENRY Facility: [facility] Start: 09-27-2021 End: 09-27-2021 ambulatory JOSHUA LEO Facility:[facility] Start: 08-11-2021 End: 08-11-[address] MARJAN HAILE Facility:[facility] Start: 09-22-2020 End: 09-22-2020 Patient encounter procedure Jaz Iglesias Work Phone: [facility] Start: 08-25-2020 End: 08-25-2020 Patient encounter procedure Jean-Claude Kendrickjenni [facility] Start: 02-12-2020 End: 02-13-2020 Patient encounter procedure [facility]IE [facility] Start: 02-12-2020 End: 02-12-2020 Subsequent hospital visit by physician [facility] Start: 12-29-2019 End: 12-29-2019 Emergency department patient visit [facility]EL [facility] Start: 12-29-2019 End: 12-29-2019 Emergency department patient visit Raheel Jackson Work Phone: [facility] ED Comment on above: Exposure to [...] 08-17-2026 Tetanus vaccination Tetanus: Every 1 0yrs [facility] Start: 08-17-2026 Urine microalbumin profile DTaP,Tdap,Td Vaccine (2 - Td or Tdap) [facility] Start: 04-15-2023 Covid-19 Vaccine (2022- season) Covid-19 Vaccine ( - season) [facility] Start: 04-15-2023 Influenza vaccination Influenza Vacc ine (#1) [facility] Start: 08-15-2022 Depression Assessment Depression Ass essment [facility] Start: 09-22-2020 COVID-19 Vaccine (Moderna) (#2) COVID-19 Vaccine (Moderna) (#2) [facility] Start: 09-22-2020 End: 09-22-2020 Immunization 09/22/2020 Immunization Primary Care Jaz Iglesias MD [address] [facility] [address] [place] [address] [phone] [facility] Start: 04-15-2020 Influenza vaccination [place], [place] Start: 04-15-2020 Influenza vaccinatio n given Sequential Influenza Vaccine (#1) [facility] Start: 2013 HPV Testing HPV Testing [facility] Start: 2004 Pap Testing Pap Testing [facility] Start: 2001 Hepatitis C antibody , confirmatory test Hepatitis C Screening [facility] Start: 2001 Hepatitis C Screening Hepatitis C Sc reening [facility] Start: 2001 HIV Screening HIV Screening [facility] Start: 1998 HIV screening HIV Screening [facility] Start: 1995 Adolescent depressio n screening assessment Depression Screening (PHQ9) [facility] Start: 1989 Pneumococcal vaccination Pneumococcal Vaccine (1 - PCV) [facility] Start: 1986 History and physical examination, annual for health maintenance Wellness Visit [facility] Start: 1983 [place] Hepatitis B Vaccine (1 of 3 - 3-dose series) Hepatitis B Vaccine (1 of 3 - 3-dose series) [facility] Start: 1983 Potassium monitoring Potassium monit [place], [place] Start: 1983 Screening for malign ant neoplasm of cervix Pap Smear [facility] Start: 1983 Tetanus vaccination Tetanus: Every 1 0yrs [facility] End: 02-12-2020 Covid-19 Ambulatory Covid-19 Ambulatory Lab Routine Once for 1 Occurrences starting 02/12/2020 until 02/12/2020 [place], [place] Comment on above: Once for 1 Occurrenc es starting 02/12/2020 until 02/12/2020 Covid-19 Ambulatory Covid-19 Amb ulatory Lab Routine 02/12/2020 7:08 AM EDT [place] Immunizations Immunization Date Immunization Notes Care Provider Fa carmen 06-04-2022 influenza virus vacc ine, unspecified formulation Priscilla Albert APRN.GAS LOAD DISPATCHER Work Phone: [facility] 09-22-2020 Moderna SARS-CoV-2 Vaccination [facility] 08-25-2020 Moderna SARS-CoV-2 Vaccination Jean-Claudelucretia Kendrickjenni [facility] Payers Date Payer Category Payer Unknown [id number] 2019 Unknown 1985 Unknown [id number] 2.16.8 [id number] 1983 Unknown [id number] 2.16.84 [id number] 1983 Unknown [id number] 2.16.84 [id number] 1983 Unknown [id number] 2.16.84 [id number] 1983 Unknown [id number] 2.16.84 [id number] 1983 Unknown [id number] 2.16.84 [id number] 1983 Unknown [id number] 2.16. [id number] 1983 Unknown [id number] 2.16. [id number] 1983 Unknown [id number] 2.16. [id number] 1983 Unknown [id number] 2.16. [id number] 1961 Self-pay [id number] Self-pay Social History Date Type Detail Facility Start: 12-29-2019 End: 07-15-2023 Tobacco smoking status NHIS Current every day smoker [facility] Start: 12-29-2019 End: 07-15-2023 Cigarettes smoked current (pack per day) - Reported [facility] Start: 12-29-2019 Alcohol intake Lifetime non-d giovanny (finding) [place], [place] Start: 12-29-2019 History SDOH Alcohol Frequency 1 [place], [place] Start: 1985 Sex Assigned At Not on file M [place], [place] Exposure to SARS-CoV -2 (event) Unable to assess [place], [place] Exposure to SARS-CoV -2 (event) Not sure [facility] History of tobacco use Cigarette Smoker [facility] Start: 07-15-2023 Tobacco use and exposure User of smokeless tobacco [facility] Start: 07-15-2023 Tobacco use panel [facility] Progress note 07-15-2023 Note Date & Type Note Facility 07-15-2023 Note HNO ID: [id number] Author: Priscilla Albert APRN.GAS LOAD DISPATCHER Service: ? Author Type: Nurse Practitioner Type: Progress Notes Filed: 07/15/2023 4:34 PM Note Text: CC: Headache and high BP HPI: Silver Andujar is a 37 year old female who presents to the [facility] walk in clinic for the above [...] seek emergency care Gayatri Tony, MSN, RN-BC [employer] Student Gayatri Tony, student nurse practitioner, and myself have interviewed the patient. I re-performed the HPI and physical exam. Assessment and plan was developed together. I spent a total of 30 minutes on the date of the service which included preparing to see the patient, [id number] patient care, completing clinical documentation, obtaining and/or reviewing separately obtained history, performing a medically appropriate examination, counseling and educating the patient/family/caregiver, and ordering medications, tests, or procedures. Priscilla Albert APRN.GAS LOAD DISPATCHER [facility] History of Present illness Narrative 07-15-2023 Priscilla Albert APRN.PABLO - 07/15/2023 1:49 PM EST Note Date & Type Note Facility 07-15-2023 History of Presen t illness Narrative CC: Headache and high BP HPI: Silver Andujar is a 37 year old female who presents to the [facility] walk in clinic for the above [...] seek emergency care Gayatri Tony, MSN, RN-BC [employer] Student Gayatri Tony, student nurse practitioner, and myself have interviewed the patient. I re-performed the HPI and physical exam. Assessment and plan was developed together. I spent a total of 30 minutes on the date of the service which included preparing to see the patient, [id number] patient care, completing clinical documentation, obtaining and/or reviewing separately obtained history, performing a medically appropriate examination, counseling and educating the patient/family/caregiver, and ordering medications, tests, or procedures. Priscilla Albert APRN.GAS LOAD DISPATCHER documented in this encounter [facility] Clinical Note 09-27-2021 Note Date & [...] RICARDO WEBB Date: 2021-09-27 13:13 [facility] Evaluation note Note Date & Type Note Facility Evaluation note Diagnosis Primary hypertension- Primary Unspecified essential hypertension documented in this encounter [facility] Discharge Instructions * Instructions* Crystal Little MD - 12/29/2019 Thank you for visiting [facility] Emergency Department. You need to call No primary care provider on file. to make an appointment as directed for follow up. Should you have any questions regarding your care or further treatment, please call [facility] Emergency Department at [phone]. 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 Advance Directives and Living Will [...] section and content) DATE CREATED AUTHOR 03/06/2020 [facility] DATE CREATED AUTHOR AUTHOR'S ORGANIZ ATION 01/30/2021 [facility] DATE CREATED AUTHOR AUTHOR'S ORGANIZ ATION 06/30/2022 [facility] DATE CREATED AUTHOR AUTHOR'S ORGANIZ ATION 08/26/2022 [facility] DATE CREATED AUTHOR AUTHOR'S ORGANIZ ATION 07/18/2023 [facility] DATE CREATED AUTHOR AUTHOR'S ORGANIZ ATION 07/23/2023 [facility] DATE CREATED AUTHOR AUTHOR'S ORGANIZ ATION 04/03/2024 [facility] Source Comments (unrecognize d section and content) In the event this informatio n is protected by the Federal Confidentiality of Alcohol and Drug Abuse Patient Records regulations: The Federal rules restrict any use of the information to criminally investigate or prosecute any alcohol or drug abuse patient.[facility] Care Teams (unrecognized sec tion and content) Pole Framer Relationship Specialty Start Date End Date ZiaHenrry [...] BE BASED ON THE PRIMARY CLINICAL RECORDS. [facility] [employer] [facility]. provides no warranty or guarantee of the accuracy or completeness of information in this document.
== END 2024-04-04 10:00 | disposition home or self-care (01) ==
PROVIDERS: PCP Nurse Practitioner Family; Visit Provider Nurse Practitioner
DX: M48.061 Spinal stenosis, lumbar region without neurogenic claudication (principal)
CPT/HCPCS: 72114

== ENCOUNTER 2024-04-30 07:55 | Day surgery (SDC) | payer OTHER, SELFPAY ==
--- OUTSIDE RECORDS SUMMARY | 2024-04-30 08:01 | XMS_ITS | CCD ---
Author Organization [facility] RVE[employer]SOL [facility] [employer] [facility] Care Team Providers Care Mining Analyst Name Role Phone Unavailable Primary Care Provider UnavailRAHEEL Yadav Attending Unavailable BESSEI MOSES Referring Unavailable Kera, Physician Primary Care [...] Admitting Unavailable DEAN LOBO Attending Unavailable CARISSA BRAFDORD Attending Unavailable Henrry Vargas DO Primary Care [...] / oxyCODONE Drug Allergy 04-21-20 18 Itching [place] (3 sources) busPIRone Drug Allergy 04-21-20 18 Other: See Comments [place] (3 sources) Sulfamethoxazole / Trimethoprim Drug Allergy 04-21-20 18 Anaphylaxis [place] (2 sources) Acetaminophen / oxyCODONE; 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: [Percocet] Drug Allergy 08-15-19 15 [facility] (2 sources) Adhesive agent Drug allergy (disorder) 11-28-19 15 [facility] (3 sources) busPIRone; 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: [BuSpar] Drug Allergy 08-07-20 16 [facility] (2 sources) Latex; 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: [Latex] Drug allergy (disorder) [facility] (1 source) Sulfamethoxazole / Trimethoprim Drug Allergy [facility] (1 source) venlafaxine Drug Allergy [facility] (1 source) Adhesive bandage; 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: [Adhesive Bandage] Propensity to adverse reactions (disorder) [facility] Rep[facility] (1 source) Sulfamethoxazole / Trimethoprim; 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: [Bactrim] Drug Allergy [facility] Medications Current Medications Medication Drug [...] 06-30-2022 Chronic Other aftercare (1 source) Other jail (current) drug therapy; 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: [OTH [facility] CURRENT DRUG THERAPY] Onset: 06-30-2022 Episodic Other [...] Interpretation Reference Range Facility [place] 07-21-2023 Consent [id number]#[id number] F [facility] In office Testingon 07-21-20 In office Testing [id number]#[id number] FF [facility] Registrationon 07-21-2023 Registration [id number]#[id number] F [facility] CNOVon 07-15-2023 CNOV Office Visit (WALKMN ) -------- SILVER ANDUJAR ([id number]) 1985 F Date Time Provider Department 07/15/23 1:45 PM PRISCILLA ALBERT During your visit today, we recorded the following information about you: Temperature Pulse Blood pressure 98 degrees 89/minute 131/81 Priscilla Albert APRN.[facility] 07/15/2023 4:34 PM Signed CC: Headache [...] seek emergency care Gayatri Tony, MSN, RN-BC TOWER DIRECTOR Student Gayatri Tony, student nurse practitioner, and myself have interviewed the patient. I re-performed the HPI and physical exam. Assessment and plan was developed together. I spent a total of 30 minutes on the date of the service which included preparing to see the patient, [id number] patient care, completing clinical documentation, obtaining and/or reviewing separately obtained history, performing a medically appropriate examination, counseling and educating the patient/family/caregiver , and ordering medications, tests, or procedures. Priscilla Albert APRN.MOTOR TRANSPORT INSPECTOR Referring Provider: SELF [200] Allergies As of Date: 07/15/2023 Noted Allergy Reaction BUSPIRONE 04/21/2018 14 - Other: See Comments OXYCODONE-ACETAMINOPHEN 04/21/2018 9 - Itching SULFAMETHOXAZOLE-TRIMETH OPRIM 04/21/2018 10 - Anaphylaxis Date Reviewed: 07/15/2023 Reviewed by: Priscilla Albert APRN.MOTOR TRANSPORT INSPECTOR - Fully Assessed Reason for Visit: Headache [...] Status:Closed by PRISCILLA ALBERT on 07/15/23 Normal [facility] DUP LOWER EXTREMITY RIGHT VENon 08-26-2022 DUP [...] Henrry Sweeney MD 08/26/22 Final result Normal [facility] Comment on above: Order Comment: Reaso n [...] Henrry Sweeney MD 08/26/22 Final result Normal [facility] Comment on above: Order Comment: Reaso n [...] RICARDO WEBB Date: 2022-06-28 14:32 Normal [facility] CULTURE URINEon 12-22-2021 CULTURE URINE Culture Observations : MODERATE GROWTH OF MIXED SKIN CHARLY. NO POTENTIAL PATHOGENS SEEN. Normal [facility] Comment on above: Performed By: #### U RCX #### [facility] [address] [place], [place] [address] Dr. Reba Swain CBC W MANUAL DIFFon 12-22-19 22 ATYPICAL LYMPH # Normal [facility] Comment on above: Performed By: #### C BCNIKI #### [facility] [address] [place], [place] [address] Dr. Reba Swain ATYPICAL LYMPH % Normal [facility] Comment on above: Performed By: #### C BCMAN #### [facility] [address] [place] [address] Dr. Reba Swain BAND # Normal 0.0-0.3 [facility] Comment on above: Performed By: #### C TRAMAINE #### [facility] [address] [place] [address] Dr. Reba Swain BAND % Normal 0-5 [facility] Comment on above: Performed By: #### C TRAMAINE #### [facility] [address] [place] [address] Dr. Reba Swain BASOM # 0.08 103/ul Normal 0.00-0.10 [facility] Comment on above: Performed By: #### C TRAMAINE #### [facility] [address] [place] [address] Dr. Reba Swain BASOM % 1.0 % Normal 0.2-2.0 [facility] Comment on above: Performed By: #### C TRAMAINE #### [facility] [address] [place] [address] Dr. Reba Swain BLAST # Normal [facility] Comment on above: Performed By: #### C TRAMAINE #### [facility] [address] [place] [address] Dr. Reba Swain BLAST % Normal [facility] Comment on above: Performed By: #### C TRAMAINE #### [facility] [address] [place] [address] Dr. Reba Swain CORRECTED WBC Normal 4.0-11.0 [facility] Comment on above: Performed By: #### C TRAMAINE #### [facility] [address] [place] [address] Dr. Reba Swain EOS # 0.08 103/ul Normal 0.00-0.70 [facility] Comment on above: Performed By: #### C TRAMAINE #### [facility] [address] [place] [address] Dr. Reba Swain EOS% 1.0 % Normal 0.9-7.0 [facility] Comment on above: Performed By: #### C TRAMAINE #### [facility] [address] [place] [address] Dr. Reba Swain HCT 42.3 % Normal 36.0-48.0 [facility] Comment on above: Performed By: #### C TRAMAINE #### [facility] [address] [place] [address] Dr. Reba Swain HGB 14.0 g/dl Normal 12.0-16.0 [facility] Comment on above: Performed By: #### C TRAMAINE #### [facility] [address] [place] [address] Dr. Reba Swain LYMPHM # 0.83 103/ul Critically low 1.20-3.80 [facility] Comment on above: Performed By: #### C TRAMAINE #### [facility] [address] [place] [address] Dr. Reba Swain LYMPHM% 10.0 % Critically low 20.5-60.0 [facility] Comment on above: Performed By: #### C TRAMAINE #### [facility] [address] [place] [address] Dr. Reba Swain MCH 30.6 pg Normal 26.7-34.0 [facility] Comment on above: Performed By: #### C TRAMAINE #### [facility] [address] [place] [address] Dr. Reba Swain MCHC 33.1 g/dl Normal 29.9-35.2 [facility] Comment on above: Performed By: #### C TRAMAINE #### [facility] [address] [place] [address] Dr. Reba Swain MCV 92.4 fL Normal 81.0-99.0 [facility] Comment on above: Performed By: #### C TRAMAINE #### [facility] [address] [place] [address] Dr. Reba Swain METAMYELOCYTE # Normal [facility] Comment on above: Performed By: #### Lexie REDD #### [facility] [address] [place] [address] Dr. Reba Swain METAMYELOCYTE % Normal [facility] Comment on above: Performed By: #### C TRAMAINE #### [facility] [address] [place] [address] [address] Reba Swain MONOM# 0.25 103/ul Critically low 0.30-0.80 [facility] Comment on above: Performed By: #### C TRAMAINE #### [facility] [address] [place] [address] [address] Reba Swain MONOM% 3.0 % Normal 1.7-12.0 [facility] Comment on above: Performed By: #### C TRAMAINE #### [facility] [address] [place] [address] [address] Reba Swain MPV 10.3 fL Normal 9.5-13.5 [facility] Comment on above: Performed By: #### C TRAMAINE #### [facility] [address] [place] [address] Dr. Reba Swain MYELOCYTE # Normal [facility] Comment on above: Performed By: #### Lexie REDD #### [facility] [address] [place] [address] Dr. Reba Swain MYELOCYTE % Normal [facility] Comment on above: Performed By: #### Lexie REDD #### [facility] [address] [place] [address] Dr. Reba Swain NRBC Normal [facility] Comment on above: Performed By: #### C TRAMAINE #### [facility] [address] [place] [address] Dr. Reba Swain PLT 190 103/ul Normal 150-450 [facility] Comment on above: Performed By: #### C TRAMAINE #### [facility] [address] [place] [address] Dr. Reba Swain RBC 4.58 106/ul Normal 4.20-5.40 [facility] Comment on above: Performed By: #### C TRAMAINE #### [facility] [address] [place] [address] Dr. Reba Swain RDW 13.3 % Normal 11.0-15.0 [facility] Comment on above: Performed By: #### C TRAMAINE #### [facility] [address] [place] [address] [address] Reba Swain SEG # 7.06 103/ul Critically high 1.40-6.50 [facility] Comment on above: Performed By: #### Lexie REDD #### [facility] [address] [place], [place] [address] Dr. Reba Swain SEG % 85.0 % Critically high 43.0-75.0 [facility] Comment on above: Performed By: #### Lexie REDD #### [facility] [address] [place], [place] [address] Dr. Reba Swain WBC 8.3 103/ul Normal 4.0-11.0 [facility] Comment on above: Performed By: #### Lexie REDD #### [facility] [address] [place] [id number] Reba Swain CT HEAD WO CONon [...] Joe SO Date: 2021-12-21 19:59 Normal [facility] ER URINE PROFILEon 2 Bilirubin Ql (U) Negative Normal NEGATIVE [facility] Comment on above: Performed By: #### ESTEPHANIA HUTCHISON #### [facility] [address] [place] [id number] Reba Swain Clarity (U) CLEAR Normal CLEAR [facility] Comment on above: Performed By: #### ESTEPHANIA HUTCHISON #### [facility] [address] [place] [address] Dr. Reba Swain Color (U) YELLOW Normal YELLOW [facility] Comment on above: Performed By: #### WESLEY HUTCHISONRO #### [facility] [address] [place] [address] Dr. Reba CHAUDHRY A micrscopic examina tion will be performed if indicated. Normal [facility] Comment on above: Performed By: #### WESLEY HUTCHISONRO #### [facility] [address] [place] [address] Dr. Reba Swain Glucose Ql (U) Negative Normal NEGATIVE [facility] Comment on above: Performed By: #### WESLEY HUTCHISONRO #### [facility] [address] [place] [address] Dr. Reba Swain Hemoglobin Ql (U) Negative Normal NEGATIVE [facility] Comment on above: Performed By: #### LEANNA HUTCHISONICRO #### [facility] [address] [place] [address] Dr. Reba Swain Ketones Ql (U) Negative Normal NEGATIVE [facility] Comment on above: Performed By: #### WESLEY HUTCHISONRO #### [facility] [address] [place] [address] Dr. Reba Swain LEUKOCYTES Negative Normal NEGATIVE [facility] Comment on above: Performed By: #### LEANNA HUTCHISONICRO #### [facility] [address] [place] [address] Dr. Reba Swain Nitrite Ql (U) Negative Normal NEGATIVE [facility] Comment on above: Performed By: #### Tyra CONTRERAS UMICRO #### [facility] [address] [place] [address] Dr. Reba Swain pH (U) 7.0 [pH] Normal 5-9 [facility] Comment on above: Performed By: #### Tyra CONTRERAS UMICRO #### [facility] [address] [place] [address] Dr. Reba Swain Protein (U) [Mass/Vol] 100 mg/dL Abnormal NEGATIVE/ TRACE [facility] Comment on above: Performed By: #### E WESLEY CONTRERASRO #### [facility] [address] [place] [address] Dr. Reba Swain SPEC GRAVITY 1.025 Normal 1.005-<=1.025 [facility] Comment on above: Performed By: #### LEANNA HUTCHISONICRO #### [facility] [address] [place] [address] Dr. Reba Swain UR MICRO IND INDICATED Normal [facility] Comment on above: Performed By: #### E WESLEY CONTRERASRO #### [facility] [address] [place] [address] Dr. Reba Swain Urobilinogen Qn (U) 0.2 {Tamia'U}/dL Normal 0.2 - 1. 0 [facility] Comment on above: Performed By: #### WESLEY HUTCHISONRO #### [facility] [address] [place] [address] Dr. Reba Swain PROF CHEM 8 (BAS METB)on Anion gap [Moles/Vol] 14.8 mmol/L Normal [facility] Comment on above: Performed By: #### B MP #### [facility] [address] [place] [address] Dr. Reba Swain Calcium [Mass/Vol] 8.5 mg/dL Normal 8.5-10.1 [facility] Comment on above: Performed By: #### B MP #### [facility] [address] [place] [address] Dr. Reba Swain Chloride [Moles/Vol] 100 mmol/L Normal 98-107 [facility] Comment on above: Performed By: #### B MP #### [facility] [address] [place] [address] Dr. Reba Swain CO2 [Moles/Vol] 23.7 mmol/L Normal 21.0-32.0 [facility] Comment on above: Performed By: #### B MP #### [facility] [address] [place] [address] Dr. Reba Swain Creatinine [Mass/Vol] 0.79 mg/dL Normal 0.55-1.02 [facility] Comment on above: Performed By: #### B MP #### [facility] [address] [place] [address] [address] Reba wSain EGFR-AF AFGHAN >60 Normal >=60 [facility] Comment on above: Performed By: #### B MP #### [facility] [address] [place] [address] [address] Reba Swain EGFR-NON AF AFGHAN >60 Normal >=60 [facility] Comment on above: Performed By: #### B MP #### [facility] [address] [place] [place] [address] [address] Reba Swain Glucose [Mass/Vol] 107 mg/dL Critically high 74-106 [facility] Comment on above: Performed By: #### B MP #### [facility] [address] [place] [address] [address] Reba Swain Potassium [Moles/Vol] 3.5 mmol/L Normal 3.5-5.1 [facility] Comment on above: Performed By: #### B MP #### [facility] [address] [place] [address] [address] Reba Swain Sodium [Moles/Vol] 135 mmol/L Critically low 136-145 [facility] Comment on above: Performed By: #### B MP #### [facility] [address] [place] [address] [address] Reba Swain Urea nitrogen [Mass/Vol] 9.0 mg/dL Normal 7.0-18.0 [facility] Comment on above: Performed By: #### B MP #### [facility] [address] [place] [address] [address] Reba Swain Urea nitrogen/Creatinine [Mass ratio] 11.4 mg/mg Normal [facility] Comment on above: Performed By: #### B MP #### [facility] [address] [place] [address] Dr. Reba Swain TROPONIN, HIGH SENSITIVITYon 12-21-2021 HSTROP 4.3 pg/mL Normal 4.0-51.3 [facility] Comment on above: Result Comment: CUT- OFF POINTS HAVE BEEN ESTABLISHED BASED ON THE FOURTH UNIVERSAL DEFINITIONS OF MYOCARDIAL INFARCTION. THE UPPER REFERENCE LIMIT (URL) OF TROPONIN, DEFINED THE 99TH PERCENTILE OF cTnI DISTRIBUTION IN A REFERENCE POPULATION, HAS BEEN CONFIRMED THE DECISION THRESHOLD FOR SD DIAGNOSIS. Performed By: #### H STROPN #### [facility] [address] [place] [address] Dr. Reba Swain URINE MICROSCOPIC ONLYon BACTERIA SMALL Abnormal NONE SEEN [facility] Comment on above: Performed By: #### E RUR, UMICRO #### [facility] [address] [place] [address] Dr. Reba Swain Bacteria identified Cx Nom (U) INDICATED Normal [facility] Comment on above: Performed By: #### E RUR, UMICRO #### [facility] [address] [place] [address] Dr. Reba Swain CAST SEEN Abnormal NONE SEEN [facility] Comment on above: Performed By: #### E RUR, UMICRO #### [facility] [address] [place] [address] Dr. Reba Swain Crystals LM Nom (Urine sed) NONE SEEN Normal NONE SEEN [facility] Comment on above: Performed By: #### E RUR, UMICRO #### [facility] [address] [place] [address] Dr. Reba Swain Epithelial cells LM Ql (Urine sed) FEW Abnormal NONE SEEN /RARE [facility] Comment on above: Performed By: #### E RUR, UMICRO #### [facility] [address] [place] [address] Dr. Reba Swain MUCOUS TRACE Abnormal NONE SEEN [facility] Comment on above: Performed By: #### E RUR, UMICRO #### [facility] [address] [place] [address] Dr. Reba Swain RBC 0-2 Normal 0-2 [facility] Comment on above: Performed By: #### E RUR, UMICRO #### [facility] [address] [place] [address] Dr. Reba Swain WBC 2-5 Abnormal NONE SEEN [facility] Comment on above: Performed By: #### E ESTEPHANIA CONTRERAS #### [facility] [address] [place] [address] [address] Reba Swain XR lumbar spine min 4V*on XR lumbar spine min 4V* [facility] [place] [address] [place] [address] XRay Report Signed Patient: Silver Andujar MR#: [id number] : 1985 Acct:[id number] Age/Sex: 35 / F ADM Date: 01/14/21 Loc: [place] Room: Type: [facility] Attending Dr: Madonna Torrez NP Ordering Provider: [...] Sweeney Jr., M.D.01/14/2021 6:46 PM Dictation Location: [place] [address] Transcribed By: [facility] 01/14/211845 Dictated By: Henrry Sweeney Jr, MD 01/14/211840 Signed By: 01/14/211845 Normal [facility] [id number] 02-16-2020 SARS-CoV-2 Not Detected Normal Not Detected [facility] Comment on above: Result Comment: (NOT E) Testing was performed using the Aptima SARS-CoV-2 assay. This test was developed and its performance characteristics determined by [employer]. This test has not been FDA cleared [...] result in this assay. Performed At: = [employer] [place]wina [place] [id number] Macy Ortega MD Ph:[phone] Performed By: #### A COV #### [facility] [address] [place] [address] Budget Clerk: Bronson Webster MD Vital Signs Date Time Vital Sign Value Performing Clinician Facility 07-15-2023 13:44-0500 Body temperature 98.01 [degF] Priscilla Albert APRN.MOTOR TRANSPORT INSPECTOR Work Phone: [facility] 07-15-2023 13:44-0500 Diastolic blood pressure 81 mm[Hg] Priscilla Albert APRN.MOTOR TRANSPORT INSPECTOR Work Phone: [facility] 07-15-2023 13:44-0500 Heart rate 89 /min Priscilla Albert APRN.MOTOR TRANSPORT INSPECTOR Work Phone: [facility] 07-15-2023 13:44-0500 Systolic blood pressure 131 mm[Hg] Priscilla Albert APRN.MOTOR TRANSPORT INSPECTOR Work Phone: [facility] 12-29-2019 05:16-0400 BMI (Body Mass Index) 37.24 kg/m2 Raheel Kaminski [facility] [place] 12-29-2019 05:16-0400 Body Temperature 97.3 [degF] [facility] [place] [place] 12-29-2019 05:16-0400 Body weight 121.11 kg [facility]el [facility] [place], [place] 12-29-2019 05:16-0400 BP Diastolic 65 mm[Hg] [place] 12-29-2019 05:16-0400 BP Systolic 114 mm[Hg] [place] 12-29-2019 05:16-0400 Height 180.3 cm [place] 12-29-2019 05:16-0400 Pulse (Heart Rate) 60 /min Raheel [place] 12-29-2019 05:16-0400 Pulse Oximetry 97 % Raheel Jackson [place], [place] 12-29-2019 05:16-0400 Respiratory Rate 18 /min Raheel Jackson [place], [place] Encounters Encounter Date Encounter Type Care Provider Facility Start: 03-26-2024 End: 03-26-2024 ambulatory Rony Daniels MD Facility: [place] Start: 03-12-2024 End: 03-12-2024 ambulatory [facility] Start: 08-22-2023 End: 08-22-2023 ambulatory Rony Daniels MD Facility: [place] Start: 08-01-2023 End: 08-01-2023 ambulatory Rony Daniels MD Facility: [place] Start: 07-21-2023 End: 07-22-2023 ambulatory Laurel Parrish CATHERINE Facility:[facility] Start: 07-18-2023 End: 07-18-2023 ambulatory [facility] Start: 07-15-2023 End: 07-15-2023 ambulatory HENRRY VARGAS Facility:[facility] Start: 07-15-2023 End: 07-15-2023 Patient encounter procedure Priscilla Albert APRN.MOTOR TRANSPORT INSPECTOR Work Phone: [facility] Comment on above: Primary hypertension (Primary Dx) Start: 08-26-2022 End: 08-26-2022 Emergency department patient visit CARISSA BRADFORD [facility] Start: 06-28-2022 End: 06-28-2022 ambulatory MARIE HENRY Facility:[facility] Start: 12-21-2021 End: 12-21-2021 ambulatory MARIE CARL Facility:[facility] Start: 12-11-2021 ambulatory MARIE HENRY Facility: [facility] Start: 09-27-2021 End: 09-27-2021 ambulatory JOSHUA BAILEY Facility:[facility] Start: 08-11-2021 End: 08-11-[address] MARJAN HAILE Facility:[facility] Start: 09-22-2020 End: 09-22-2020 Patient encounter procedure Jaz Adrityra Iglesias Work Phone: [facility] Start: 08-25-2020 End: 08-25-2020 Patient encounter procedure Jean-Claude Redmond [facility] Start: 02-12-2020 End: 02-13-2020 Patient encounter procedure BESSIE MOSES [facility] Start: 02-12-2020 End: 02-12-2020 Subsequent hospital visit by physician ARIADNA Kerr Start: 12-29-2019 End: 12-29-2019 Emergency department patient visit RAHEEL JACKSON [facility] Start: 12-29-2019 End: 12-29-2019 Emergency department patient visit Raheel Ruchimaxime Boss Phone: [facility] ED Comment on above: Exposure to [...] 08-17-2026 Tetanus vaccination Tetanus: Every 1 0yrs [facility] Start: 08-17-2026 Urine microalbumin profile DTaP,Tdap,Td Vaccine (2 - Td or Tdap) [facility] Start: 04-15-2023 Covid-19 Vaccine ( season) Covid-19 Vaccine ( season) [facility] Start: 04-15-2023 Influenza vaccination Influenza Vacc ine (#1) [facility] Start: 08-15-2022 Depression Assessment Depression Ass essment [facility] Start: 09-22-2020 COVID-19 Vaccine (Moderna) (#2) COVID-19 Vaccine (Moderna) (#2) [facility] Start: 09-22-2020 End: 09-22-2020 Immunization 09/22/2020 Immunization Primary Care Jaz Iglesias MD [address] [facility] [address] [place], [place] [id number] [facility] [employer] [facility] Start: 04-15-2020 Influenza vaccination [place] Start: 04-15-2020 Influenza vaccinatio n given Sequential Influenza Vaccine (#1) [facility] Start: 2013 HPV Testing HPV Testing [facility] Start: 2004 Pap Testing Pap Testing [facility] Start: 2001 Hepatitis C antibody , confirmatory test Hepatitis C Screening [facility] Start: 2001 Hepatitis C Screening Hepatitis C Sc reening [facility] Start: 2001 HIV Screening [facility] Screening [facility] Start: 1998 HIV screening HIV Screening [facility] Start: 1995 Adolescent depressio n screening assessment Depression Screening (PHQ9) [facility] Start: 1989 Pneumococcal vaccination Pneumococcal Vaccine (1 - PCV) [facility] Start: 1986 History and physical examination, annual for health maintenance Wellness Visit [facility] Start: 1983 Creatinine measurement Creatinine mo [place], [place] Start: 1983 Hepatitis B Vaccine (1 of 3 - 3-dose series) Hepatitis B Vaccine (1 of 3 - 3-dose series) [facility] Start: 1983 Potassium monitoring Potassium monit [place], [place] Start: 1983 Screening for malign ant neoplasm of cervix Pap Smear [facility] Start: 1983 Tetanus vaccination Tetanus: Every 1 0yrs [facility] End: 02-12-2020 Covid-19 Ambulatory Covid-19 Ambulatory Lab Routine Once for 1 Occurrences starting 02/12/2020 until 02/12/2020 [place] Comment on above: Once for 1 Occurrenc es starting 02/12/2020 until 02/12/2020 Covid-19 Ambulatory Covid-19 Amb ulatory Lab Routine 02/12/2020 7:08 AM EDT [place] Immunizations Immunization Date Immunization Notes Care Provider Fa carmen 06-04-2022 influenza virus vacc ine, unspecified formulation Priscilla Albert APRN.MOTOR TRANSPORT INSPECTOR Work Phone: [facility] 09-22-2020 Moderna SARS-CoV-2 Vaccination Lizbeth Mcclendon [facility] 08-25-2020 Moderna SARS-CoV-2 Vaccination Jean-Claude Nyla [facility] Payers Date Payer Category Payer Unknown [id number] 2019 Unknown 1985 Unknown [id number] [id number] 1983 Unknown [id number] 2.16.84 [id number] 1983 Unknown [id number] 2.16.84 [id number] 1983 Unknown [id number] 2.16.84 [id number] 1983 Unknown [id number] 2.16.84 [id number] 1983 Unknown [id number] 2.16.84 [id number] 1983 Unknown [id number] 2.16. [id number] 1983 Unknown [id number] 2.16. [id number] 1983 Unknown [id number] 2.16. [id number] 1983 Unknown [id number] 2.16. [id number] 1983 Unknown [id number] 2.16. [id number] 1961 Self-pay [id number] Self-pay Social History Date Type Detail Facility Start: 12-29-2019 End: 07-15-2023 Tobacco smoking status NHIS Current every day smoker [facility] Start: 12-29-2019 End: 07-15-2023 Cigarettes smoked current (pack per day) - Reported [place], [place] Start: 12-29-2019 Alcohol intake Lifetime non-d giovanny (finding) [place] Start: 12-29-2019 History SDOH Alcohol Frequency 1 [place], [place] Start: 1985 Sex Assigned At Not on file M [place], [place] Exposure to SARS-CoV -2 (event) Unable to assess [place] Exposure to SARS-CoV -2 (event) Not sure [facility] History of tobacco use Cigarette Smoker C [facility] Start: 07-15-2023 Tobacco use and exposure User of smokeless tobacco [facility] Start: 07-15-2023 Tobacco use panel [facility] Progress note 07-15-2023 Note Date & Type Note Facility 07-15-2023 Note HNO ID: [id number] Author: Priscilla Albert APRN.MOTOR TRANSPORT INSPECTOR Service: ? Author Type: Nurse Practitioner Type: Progress Notes Filed: 07/15/2023 4:34 PM Note Text: CC: Headache and high BP HPI: Silver Andujar is a 37 year old female who presents to the [facility] walk in clinic for the [...] seek emergency care Gayatri Tony, MSN, RN-BC TOWER DIRECTOR Student Gayatri Tony, student nurse practitioner, and myself have interviewed the patient. I re-performed the HPI and physical exam. Assessment and plan was developed together. I spent a total of 30 minutes on the date of the service which included preparing to see the patient, [id number] patient care, completing clinical documentation, obtaining and/or reviewing separately obtained history, performing a medically appropriate examination, counseling and educating the patient/family/caregiver, and ordering medications, tests, or procedures. Priscilla Albert APRN.PABLO [facility] History of Present illness Narrative 07-15-2023 Priscilla [...] seek emergency care Gayatri Tony, MSN, RN-BC TOWER DIRECTOR Student Gayatri Tony, student nurse practitioner, and myself have interviewed the patient. I re-performed the HPI and physical exam. Assessment and plan was developed together. I spent a total of 30 minutes on the date of the service which included preparing to see the patient, [id number] patient care, completing clinical documentation, obtaining and/or reviewing separately obtained history, performing a medically appropriate examination, counseling and educating the patient/family/caregiver, and ordering medications, tests, or procedures. Priscilla Albert APRN.MOTOR TRANSPORT INSPECTOR documented in this encounter [facility] Clinical Note 09-27-2021 Note Date & Type [...] by: RICARDO WEBB Date: 2021-09-27 13:13 [facility] Evaluation note Note Date & Type Note Facility Evaluation note Diagnosis Primary hypertension- Primary Unspecified essential hypertension documented in this encounter [facility] Discharge Instructions * Instructions* Crystal Little MD - 12/29/2019 Thank you for visiting [facility] Emergency Department. You need to call No primary care provider on file. to make an appointment as directed for follow up. Should you have any questions regarding your care or further treatment, please call [facility] Emergency Department at [phone]. 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 Advance Directives and Living Will [...] section and content) DATE CREATED AUTHOR 03/06/2020 [facility] DATE CREATED AUTHOR AUTHOR'S ORGANIZ ATION 01/30/2021 [facility] DATE CREATED AUTHOR AUTHOR'S ORGANIZ ATION 06/30/2022 [facility] DATE CREATED AUTHOR AUTHOR'S ORGANIZ ATION 08/26/2022 [facility] DATE CREATED AUTHOR AUTHOR'S ORGANIZ ATION 07/18/2023 [facility] DATE CREATED AUTHOR AUTHOR'S ORGANIZ ATION 07/23/2023 [facility] DATE CREATED AUTHOR AUTHOR'S ORGANIZ ATION 04/11/2024 [facility] Source Comments (unrecognize d section and content) In the event this informatio n is protected by the Federal Confidentiality of Alcohol and Drug Abuse Patient Records regulations: The Federal rules restrict any use of the information to criminally investigate or prosecute any alcohol or drug abuse patient.[facility] Care Teams (unrecognized sec tion and content) Mining Analyst 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 [employer] [facility]. provides no warranty or guarantee of the accuracy or completeness of information in this document.
[2024-04-30 08:14] VITALS: BP 138/86; PULSE 71; TEMP 36.3; O2SAT 98
[2024-04-30 09:09] VITALS: BP 141/69; PULSE 71; O2SAT 97
[2024-04-30 09:11] VITALS: BP 135/69; PULSE 66; O2SAT 97
[2024-04-30] MEDS: BUPIVACAINE HCL 0.25% PF 25 MG/10 ML VIAL INJ (09:11)
--- NOTE | 2024-04-30 09:11 | W.PM.PROCNOT ---
Date of procedure: 04/30/24 Pre-op diagnosis: Pain due to lumbar spondylosis without myelopathy Post-op diagnosis: same as pre-op Procedure: Procedure: Bilateral L4-5, L5-S1 medial branch block Medications: Bupivacaine 0.25% 6cc The patient was seen and examined in the preoperative holding area.? An informed consent was obtained and placed on the chart.? The patient was brought to the medical procedure unit and placed in the prone position.? A timeout was completed verifying correct patient, procedure site, positioning, plan, and special equipment.? Using aseptic technique, the needle was placed at left L4. Under direct fluoroscopic visualization a Quincke-tipped spinal needle was advanced to the junction of the superior articulating process with the transverse process at the designated medial branch segment.? Preceded by negative aspiration, the above-mentioned injectate was placed in 1 mL aliquots.? The procedure was repeated at left L5, S1.? The needle was removed and insertion site was covered. The same procedure, at the same levels, was completed on the right side. The patient was taken to the postprocedural recovery area and monitored for an appropriate length of time before found suitable for discharge in the company of a responsible adult. Anesthesia: Local Surgeon: Rony Daniels Pathology: none sent Condition: stable Disposition: no change
[2024-04-30] MEDS: LIDOCAINE HCL 2% 400 MG/20 ML MDV 15 ML INJ (09:12)
== END 2024-04-30 09:15 | disposition home or self-care (01) ==
LOC: SURGOUT 07:55
PROVIDERS: PCP Nurse Practitioner Family; Visit Provider Anesthesiology
DX: M47.816 Spondylosis without myelopathy or radiculopathy, lumbar region (principal)
CPT/HCPCS: 64493; 64494; J0665

== ENCOUNTER 2024-05-09 15:28 | Outpatient (OUT) | payer OTHER, SELFPAY ==
--- NOTE | 2024-05-09 15:37 | P.CN_ITS ---
Consult Note: HPI Data of Consult Patient: known to practice within the last 3 years Consult date: 07/18/23 Requesting Physician: Lorna Herring NP Primary Care Provider: MARIE HENRY Consult Narrative Reason for consult: Low back pain, bilateral lower extremity pain Narrative: 38yof who presents for evaluation. worsening low back pain with radiation into lower extremities. continues in provider directed home exercise program >6 weeks >3x/week, has engaged in chiropractice therapy. no relief. imaging reviewed, [facility] shows disc bulging with resultant stenosis at l4-5, l5-s1. has trialed gabapentin, mobic, robaxin, gabapentin, tylenol with limited benefit. denies adverse med side effects. Patient has reported improvement in pain and functional ability with tylenol #3 BID PRN, without side effects. Patient reporting >50% improvement in pain since bilateral L4 TFESI and bilateral L5 TFESI. Patient rating pain 4/10 in low back increasing to 8/10 at its worst. Reports heaviness/weakness in BLE. Pain increased with all activity and improved with lying down and heat. Continues to have moderate to severe axial low back pain with standing, activity, twisting, bending. recently underwent bilateral L4-5 L5-S1 MBB #1 with 100% improvement in pain and functional ability immediately following and 1 day following. patient has not felt that good in years. cc:: CC: Lorna Herring NP Review of Systems ROS Status of ROS 10 or more systems reviewed and unremark able except as noted in history and below Musculoskeletal Reports: back pain PFSH PFSH Social History Smoking status: Current every day smoker Meds Home Medications and Allergies Home Medications ?Medication ?Instructions ?Recorded ?Confirmed ?Type citalopram 40 mg tablet 40 mg PO DAILY 06/16/23 04/30/24 History hydrochlorothiazide 25 mg tablet 25 mg PO DAILY 06/16/23 04/30/24 History lisinopril 20 mg tablet 20 mg PO DAILY 06/16/23 04/30/24 History metoprolol succinate 25 mg 25 mg PO DAILY 06/16/23 04/30/24 History tablet,extended release 24 hr acetaminophen 500 mg tablet 1,000 mg PO DAILY PRN pain 07/18/23 04/30/24 History (Acetaminophen Pain Relief) biotin 10,000 mcg capsule 10,000 mcg PO DAILY 07/18/23 04/30/24 History meloxicam 15 mg tablet 15 mg PO DAILY 07/18/23 04/30/24 History topiramate 50 mg tablet (Topamax) 50 mg PO BID 08/22/23 04/30/24 History doxepin 10 mg capsule mg 03/26/24 History acetaminophen 300 mg-codeine 30 mg 1 tab PO BID PRN pain #45 tabs 03/28/24 04/30/24 Rx tablet gabapentin 600 mg tablet 600 mg PO BID 04/04/24 04/30/24 History gabapentin 600 mg tablet 600 mg PO BID #60 tabs 04/04/24 04/30/24 Rx hydroxyzine HCl 25 mg tablet 25 mg PO TID PRN anxiety 04/04/24 04/30/24 History Allergies Allergy/AdvReac Type Severity Reaction Status Date / Time buspirone [From BuSpar] Allergy Severe Migraine Verified 03/26/24 10:02 sulfamethoxazole Allergy Severe Anaphylaxis Verified 03/26/24 10:02 [From Bactrim] trimethoprim [From Bactrim] Allergy Severe Anaphylaxis Verified 03/26/24 10:02 venlafaxine [From Effexor] Allergy Severe syncope Verified 03/26/24 10:02 oxycodone [From Percocet] AdvReac Severe Anxiety Verified 03/26/24 10:02 Exam Constitutional Documenting provider has reviewed patient's vital signs: yes Common normals: no apparent distress, oriented x3, healthy appearing, alert and well nourished General appearance: cooperative [facility] Common normals: normocephalic, hearing grossly normal bilaterally and moist oral mucous membranes Head and scalp: normocephalic Eye Common normals: PERRL Pupil: PERRL Neck & C-Spine Common normals: full ROM General: normal visual inspection Chest Common normals: inspection of chest normal Respiratory Common normals: normal respiratory effort, no retractions and no use of accessory muscles Back & Pelvis Lumbar spine/lower back: ROM limited, pain with ROM and straight leg raise positive left Sacroiliac joints: SI joint(s) abnormal Other: bilateral sij positive klaus(patricks), gaenslens, thigh thrust, compression test bilateral facet loading positive tenderness over L3-S1 facets improved radicular symptoms on exam, sensation intact BLE strength 5/5 in BLE Extremity Common normals: normal to inspection and full ROM Neuro Common normals: oriented x3, CN's II-XII intact bilaterally, moves all extremities, no focal motor deficits, no sensory deficits noted and deep tendon reflexes 2+ bilaterally Sensorium/orientation: alert Motor exam: strength 5/5 throughout and no movement abnormalities noted Psych Common normals: mental status grossly normal, thought process normal, cooperative, affect normal, speech normal and activity/motor behavior normal Speech: normal speech Thought process: normal thought process Results Additional Findings Additional findings: If on a controlled substance or opioids, I have checked an [place]AR[place] report on this patient and there are no aberrancies noted in the prescribing history.??If on a controlled substance or opioid a drug screen was completed and reviewed within the last year, and if there has not been a drug screen completed we ordered one today to monitor higher risk, state monitored pain medication use. As part of providing excellent, safe, comprehensive care, the following was completed at our patient's visit: 1. A medication reconciliation and review to ensure accurate knowledge of c urrent/active medications, including asking our patients to inform us about any [id number] medications or herbal remedies/nutritional supplements/alternative remedies. 2. A review to specifically ensure our patients have had annual screening for screening for depression, screening for tobacco use, and screening for unhealthy alcohol use. For concerning screenings had a discussion with the patient, provided patient education, and recommended follow-up with primary care provider when appropriate. If patient noted with a risk of falling, they received education on strength, gait, and balance training to prevent future risk of falling. Assessment and Plan Assessment and Plan (1) Lumbar spondylosis: Assessment and Plan: The patient has had over 3 months of moderate to severe low back pain with functional impairment and inadequate response to conservative care including NSAIDS (unless there are contraindication such as concurrent blood thinners), multiple oral or topical pain medications, and home exercise program/physical therapy.? Patient has completed >6 weeks of guided home exercise program and/or formal physical therapy program without relief of their symptoms.? We discussed the risks and benefits of the procedure with the patient, and we are NOT planning on using sedation as outlined in the guidelines from Medicare unless there is a documented reason that sedation would be strongly recommended.?? ?The procedure will be completed with fluoroscopic guidance.? (2) Lumbar stenosis with neurogenic claudication: (3) Chronic prescription opiate use: Assessment and Plan: I feel these medications are improving the patient's quality of life and allow them to tolerate activities of daily living as well as participate in recreational activity.? The patient does not report intolerable side effects. The patient is NOT opioid naive and non-pharmacologic and non-opioid treatment has failed to significantly relieve the patient's pain and improve functionality. The patient has a diagnosis that is related to a somatic or visceral pain etiology. ? ?? I reviewed with the patient the potential risks and side effects with the use of? opioid medications including but not limited to respiratory depression,? sedation, and even . I verified the patient has access to naloxone should? these effects occur. I advised the patient to avoid the use of any other? sedation substances including alcohol, THC, and benzodiazepines while? taking opioid medications due to the risk of compounding side effects and? detrimental outcomes. I reviewed the LOTUS NOTES DEVELOPER, pain treatment agreement, urine? drug screen, and opioid start talking forms. The patient was advised to let? their family know they had Naloxone in case they would need to administer? the medication.? ?? A drug screen was completed within the last year, and no aberrancies were noted regarding their use of controlled substances. The patient understands they are subject to the terms and conditions of the pain contract that they have signed. ? ?? I have checked an OARRS report on this patient today and there are no aberrancies noted in the prescribing history.? (4) Sacroiliitis: Plan bilateral L4-5 L5-S1 MBB X2 working towards RFA for chronic axial low back pain unresponsive to above listed medications, HEP greater than 6 weeks, NSAIDs, heat/ice continue current medications, tolerating well without side effects. noticing functional improvement for 6 hours after each dose f/u after each injection
--- OUTSIDE RECORDS SUMMARY | 2024-05-09 15:37 | XMS_ITS | CCD ---
Author Organization [facility] Care Team Providers Care Analysis Manager Name Role Phone Unavailable Primary Care Provider [...] / oxyCODONE Drug Allergy 04-21-20 18 Itching [place], [place] (3 sources) busPIRone Drug Allergy 04-21-20 18 Other: See Comments [place], [place] (3 sources) Sulfamethoxazole / Trimethoprim Drug Allergy 04-21-20 18 Anaphylaxis [place] (2 sources) Acetaminophen / oxyCODONE; 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: [Percocet] Drug Allergy 08-15-19 15 [facility] (2 sources) Adhesive agent Drug allergy (disorder) 11-28-19 15 [facility] (3 sources) busPIRone; 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: [BuSpar] Drug Allergy 08-07-20 16 [facility] (2 sources) Latex; 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: [Latex] Drug allergy (disorder) [facility] (1 source) Sulfamethoxazole / Trimethoprim Drug Allergy [facility] (1 source) venlafaxine Drug Allergy [facility] (1 source) Adhesive bandage; 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: [Adhesive Bandage] Propensity to adverse reactions (disorder) [facility] Repository (1 source) Sulfamethoxazole / Trimethoprim; 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: [Bactrim] Drug Allergy [facility] Medications Current Medications Medication Drug [...] Other intermediate (current) drug therapy; 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: [OTH GROUP HOME CURRENT DRUG THERAPY] Onset: 06-30-2022 Episodic Other [...] Interpretation Reference Range Facility [facility] 07-21-2023 Consent [id number] F [facility] In office Testingon 07-21-20 In office Testing [id number] FF [facility] Registrationon 07-21-2023 Registration [id number] F [facility] CNOVon 07-15-2023 CNOV Office Visit (WALKMN ) -------- SILVER ANDUJAR ([id number]) 1985 F Date Time Provider Department 07/15/23 1:45 PM PRISCILLA ALBERT During your visit today, we recorded the following information about you: Temperature Pulse Blood pressure 98 degrees 89/minute 131/81 Priscilla Albert APRN.[facility] 07/15/2023 4:34 PM Signed CC: Headache [...] seek emergency care Gayatri Tony, MSN, RN-BC [employer] OPERATOR Student Gayatri Tony, student nurse practitioner, and myself have interviewed the patient. I re-performed the HPI and physical exam. Assessment and plan was developed together. I spent a total of 30 minutes on the date of the service which included preparing to see the patient, [id number] patient care, completing clinical documentation, obtaining and/or reviewing separately obtained history, performing a medically appropriate examination, counseling and educating the patient/family/caregiver , and ordering medications, tests, or procedures. Priscilla Albert APRN.INDUSTRIAL ECONOMICS PROFESSOR Referring Provider: SELF [[id number]] Allergies As of Date: 07/15/2023 Noted Allergy Reaction BUSPIRONE 04/21/2018 14 - Other: See Comments OXYCODONE-ACETAMINOPHEN 04/21/2018 9 - Itching SULFAMETHOXAZOLE-TRIMETH OPRIM 04/21/2018 10 - Anaphylaxis Date Reviewed: 07/15/2023 Reviewed by: Priscilla Albert APRN.INDUSTRIAL ECONOMICS PROFESSOR - Fully Assessed Reason for Visit: Headache [...] Status:Closed by PRISCILLA ALBERT on 07/15/23 Normal [facility] DUP LOWER EXTREMITY RIGHT VENon 08-26-2022 [...] Henrry Sweeney MD 08/26/22 Final result Normal [facility] Comment on above: Order Comment: [...] Henrry Sweeney MD 08/26/22 Final result Normal [facility] Comment on above: Order Comment: [...] RICARDO WEBB Date: 2022-06-28 14:32 Normal [facility] CULTURE URINEon 12-22-2021 CULTURE URINE Culture Observations : MODERATE GROWTH OF MIXED SKIN CHARLY. NO POTENTIAL PATHOGENS SEEN. Normal [facility] Comment on above: Performed By: #### U RCX #### [facility] [address], [place] [address] Dr. Reba wSain CBC W MANUAL DIFFon 12-22-19 22 ATYPICAL LYMPH # Normal [facility] Comment on above: Performed By: #### C BCNIKI #### [facility] [address], [place] [address] Dr. Reba Swain ATYPICAL LYMPH % Normal [facility] Comment on above: Performed By: #### C BCMAN #### [facility] [address] [place] [address] Dr. Reba Swain BAND # Normal 0.0-0.3 [facility] Comment on above: Performed By: #### C TRAMAINE #### [facility] [address] [place] [address] Dr. Reba Swain BAND % Normal 0-5 [facility] Comment on above: Performed By: #### C TRAMAINE #### [facility] [address] [place] [address] Dr. Reba Swain BASOM # 0.08 103/ul Normal 0.00-0.10 [facility] Comment on above: Performed By: #### C TRAMAINE #### [facility] [address] [place] [address] Dr. Reba Swain BASOM % 1.0 % Normal 0.2-2.0 [facility] Comment on above: Performed By: #### C TRAMAINE #### [facility] [address] [place] [address] Dr. Reba Swain BLAST # Normal [facility] Comment on above: Performed By: #### C TRAMAINE #### [facility] [address] [place] [address] Dr. Reba Swain BLAST % Normal [facility] Comment on above: Performed By: #### C TRAMAINE #### [facility] [address] [place] [address] Dr. Reba Swain CORRECTED WBC Normal 4.0-11.0 [facility] Comment on above: Performed By: #### C TRAMAINE #### [facility] [address] [place] [address] Dr. Reba Swain EOS # 0.08 103/ul Normal 0.00-0.70 [facility] Comment on above: Performed By: #### C TRAMAINE #### [facility] [address] [place] [address] Dr. Reba Swain EOS% 1.0 % Normal 0.9-7.0 [facility] Comment on above: Performed By: #### C TRAMAINE #### [facility] [address] [place] [address] Dr. Reba Swain HCT 42.3 % Normal 36.0-48.0 [facility] Comment on above: Performed By: #### C TRAMAINE #### [facility] [address] [place] [address] Dr. Reba Swain HGB 14.0 g/dl Normal 12.0-16.0 [facility] Comment on above: Performed By: #### C TRAMAINE #### [facility] [address] [place] [address] Dr. Reba Swain LYMPHM # 0.83 103/ul Critically low 1.20-3.80 [facility] Comment on above: Performed By: #### C TRAMAINE #### [facility] [address] [place] [address] Dr. Reba Swain LYMPHM% 10.0 % Critically low 20.5-60.0 [facility] Comment on above: Performed By: #### C TRAMAINE #### [facility] [address] [place] [address] Dr. Reba Swain MCH 30.6 pg Normal 26.7-34.0 [facility] Comment on above: Performed By: #### C TRAMAINE #### [facility] [address] [place] [address] Dr. Reba Swain MCHC 33.1 g/dl Normal 29.9-35.2 [facility] Comment on above: Performed By: #### C TRAMAINE #### [facility] [address] [place] [address] Dr. Reba Swain MCV 92.4 fL Normal 81.0-99.0 [facility] Comment on above: Performed By: #### C TRAMAINE #### [facility] [address] [place] [address] Dr. Reba Swain METAMYELOCYTE # Normal [facility] Comment on above: Performed By: #### Lexie REDD #### [facility] [address] [place] [address] Dr. Reba Swain METAMYELOCYTE % Normal [facility] Comment on above: Performed By: #### C TRAMAINE #### [facility] [address] [place] [address] [address] Reba Swain MONOM# 0.25 103/ul Critically low 0.30-0.80 [facility] Comment on above: Performed By: #### C TRAMAINE #### [facility] [address] [address] [address] Reba Swain MONOM% 3.0 % Normal 1.7-12.0 [facility] Comment on above: Performed By: #### C TRAMAINE #### [facility] [address] [address] [address] Reba Swain MPV 10.3 fL Normal 9.5-13.5 [facility] Comment on above: Performed By: #### C TRAMAINE #### [facility] [address] [place] [address] Dr. Reba Swain MYELOCYTE # Normal [facility] Comment on above: Performed By: #### Lexie REDD #### [facility] [address] [place] [address] Dr. Reba Swain MYELOCYTE % Normal [facility] Comment on above: Performed By: #### Lexie REDD #### [facility] [address] [place] [address] Dr. Reba Swain NRBC Normal [facility] Comment on above: Performed By: #### C TRAMAINE #### [facility] [address] [place] [address] Dr. Reba Swain PLT 190 103/ul Normal 150-450 [facility] Comment on above: Performed By: #### C TRAMAINE #### [facility] [address] [place] [address] Dr. Reba Swain RBC 4.58 106/ul Normal 4.20-5.40 [facility] Comment on above: Performed By: #### C TRAMAINE #### [facility] [address] [place] [address] Dr. Reba Swain RDW 13.3 % Normal 11.0-15.0 [facility] Comment on above: Performed By: #### C TRAMAINE #### [facility] [address] [address] [address] Reba Swain SEG # 7.06 103/ul Critically high 1.40-6.50 [facility] Comment on above: Performed By: #### Lexie REDD #### [facility] [address], [place] [address] Dr. Reba Swain SEG % 85.0 % Critically high 43.0-75.0 [facility] Comment on above: Performed By: #### Lexei REDD #### [facility] [address], [place] [address] Dr. Reba Swain WBC 8.3 103/ul Normal 4.0-11.0 [facility] Comment on above: Performed By: #### Lexie REDD #### [facility] [id number] Reba Swain CT HEAD WO CONon [...] Joe SO Date: 2021-12-21 19:59 Normal [facility] ER URINE PROFILEon 2 Bilirubin Ql (U) Negative Normal NEGATIVE [facility] Comment on above: Performed By: #### ESTEPHANIA HUTCHISON #### [facility] [address] [id number] [address] Reba Swain Clarity (U) CLEAR Normal CLEAR [facility] Comment on above: Performed By: #### ESTEPHANIA HUTCHISON #### [facility] [address] [place] [address] Dr. Reba Swain Color (U) YELLOW Normal YELLOW [facility] Comment on above: Performed By: #### WESLEY HUTCHISONRO #### [facility] [address] [place] [address] Dr. Reba CHAUDHRY A micrscopic examina tion will be performed if indicated. Normal [facility] Comment on above: Performed By: #### WESLEY HUTCHISONRO #### [facility] [address] [place] [address] Dr. Reba Swain Glucose Ql (U) Negative Normal NEGATIVE [facility] Comment on above: Performed By: #### WESLEY HUTCHISONRO #### [facility] [address] [place] [address] Dr. Reba Swain Hemoglobin Ql (U) Negative Normal NEGATIVE [facility] Comment on above: Performed By: #### LEANNA HUTCHISONICRO #### [facility] [address] [place] [address] Dr. Reba Swain Ketones Ql (U) Negative Normal NEGATIVE [facility] Comment on above: Performed By: #### WESLEY HUTCHISONRO #### [facility] [address] [place] [address] Dr. Reba Swain LEUKOCYTES Negative Normal NEGATIVE [facility] Comment on above: Performed By: #### LEANNA HUTCHISONICRO #### [facility] [address] [place] [address] Dr. Reba Swain Nitrite Ql (U) Negative Normal NEGATIVE [facility] Comment on above: Performed By: #### Tyra CONTRERAS UMICRO #### [facility] [address] [place] [address] Dr. Reba Swain pH (U) 7.0 [pH] Normal 5-9 [facility] Comment on above: Performed By: #### Tyra CONTRERAS UMICRO #### [facility] [address] [place] [address] Dr. Reba Swain Protein (U) [Mass/Vol] 100 mg/dL Abnormal NEGATIVE/ TRACE [facility] Comment on above: Performed By: #### E WESLEY CONTRERASRO #### [facility] [address] [place] [address] Dr. Reba Swain SPEC GRAVITY 1.025 Normal 1.005-<=1.025 [facility] Comment on above: Performed By: #### LEANNA HUTCHISONICRO #### [facility] [address] [place] [address] Dr. Reba Swain UR MICRO IND INDICATED Normal [facility] Comment on above: Performed By: #### E WESLEY CONTRERASRO #### [facility] [address] [place] [address] Dr. Reba Swain Urobilinogen Qn (U) 0.2 {Tamia'U}/dL Normal 0.2 - 1. 0 [facility] Comment on above: Performed By: #### WESLEY HUTCHISONRO #### [facility] [address] [place] [address] Dr. Reba Swain PROF CHEM 8 (BAS METB)on Anion gap [Moles/Vol] 14.8 mmol/L Normal [facility] Comment on above: Performed By: #### B MP #### [facility] [address] [place] [address] Dr. Reba Swain Calcium [Mass/Vol] 8.5 mg/dL Normal 8.5-10.1 [facility] Comment on above: Performed By: #### B MP #### [facility] [address] [place] [address] Dr. Reba Swain Chloride [Moles/Vol] 100 mmol/L Normal 98-107 [facility] Comment on above: Performed By: #### B MP #### [facility] [address] [place] [address] Dr. Reba Swain CO2 [Moles/Vol] 23.7 mmol/L Normal 21.0-32.0 [facility] Comment on above: Performed By: #### B MP #### [facility] [address] [place] [address] Dr. Reba Swain Creatinine [Mass/Vol] 0.79 mg/dL Normal 0.55-1.02 [facility] Comment on above: Performed By: #### B MP #### [facility] [address] [place] [address] [address] Reba Swain EGFR-AF FAROESE >60 Normal >=60 [facility] Comment on above: Performed By: #### B MP #### [facility] [address] [address] [address] Reba Swain EGFR-NON AF FAROESE >60 Normal >=60 [facility] Comment on above: Performed By: #### B MP #### [facility] [address] [address] [address] Reba Swain Glucose [Mass/Vol] 107 mg/dL Critically high 74-106 [facility] Comment on above: Performed By: #### B MP #### [facility] [address] [address] [address] Reba Swain Potassium [Moles/Vol] 3.5 mmol/L Normal 3.5-5.1 [facility] Comment on above: Performed By: #### B MP #### [facility] [address] [address] [address] Reba Swain Sodium [Moles/Vol] 135 mmol/L Critically low 136-145 [facility] Comment on above: Performed By: #### B MP #### [facility] [address] [address] [address] Reba Swain Urea nitrogen [Mass/Vol] 9.0 mg/dL Normal 7.0-18.0 [facility] Comment on above: Performed By: #### B MP #### [facility] [address] [address] [address] Reba Swain Urea nitrogen/Creatinine [Mass ratio] 11.4 mg/mg Normal [facility] Comment on above: Performed By: #### B MP #### [facility] [address] [place] [address] Dr. Reba Swain TROPONIN, HIGH SENSITIVITYon 12-21-2021 HSTROP 4.3 pg/mL Normal 4.0-51.3 [facility] Comment on above: Result Comment: CUT- OFF POINTS HAVE BEEN ESTABLISHED BASED ON THE FOURTH UNIVERSAL DEFINITIONS OF MYOCARDIAL INFARCTION. THE UPPER REFERENCE LIMIT (URL) OF TROPONIN, DEFINED THE 99TH PERCENTILE OF cTnI DISTRIBUTION IN A REFERENCE POPULATION, HAS BEEN CONFIRMED THE DECISION THRESHOLD FOR NM DIAGNOSIS. Performed By: #### H STROPN #### [facility] [address] [place] [address] Dr. Reba Swain URINE MICROSCOPIC ONLYon BACTERIA SMALL Abnormal NONE SEEN [facility] Comment on above: Performed By: #### E RUR, UMICRO #### [facility] [address] [place] [address] Dr. Reba Swain Bacteria identified Cx Nom (U) INDICATED Normal [facility] Comment on above: Performed By: #### E RUR, UMICRO #### [facility] [address] [place] [address] Dr. Reba Swain CAST SEEN Abnormal NONE SEEN [facility] Comment on above: Performed By: #### E RUR, UMICRO #### [facility] [address] [place] [address] Dr. Reba Swain Crystals LM Nom (Urine sed) NONE SEEN Normal NONE SEEN [facility] Comment on above: Performed By: #### E RUR, UMICRO #### [facility] [address] [place] [address] Dr. Reba Swain Epithelial cells LM Ql (Urine sed) FEW Abnormal NONE SEEN /RARE [facility] Comment on above: Performed By: #### E RUR, UMICRO #### [facility] [address] [place] [address] Dr. Reba Swain MUCOUS TRACE Abnormal NONE SEEN [facility] Comment on above: Performed By: #### E RUR, UMICRO #### [facility] [address] [place] [address] Dr. Reba Swain RBC 0-2 Normal 0-2 [facility] Comment on above: Performed By: #### E RUR, UMICRO #### [facility] [address] [place] [address] Dr. Reba Swain WBC 2-5 Abnormal NONE SEEN [facility] Comment on above: Performed By: #### E ESTEPHANIA CONTRERAS #### [facility] [address] [address] [address] Reba Swain XR lumbar spine min 4V*on XR lumbar spine min 4V* [facility] [place] [address] [place] [address] XRay Report Signed Patient: Silver Andujar MR#: [id number] : 1985 Acct:[id number] Age/Sex: 35 / F ADM Date: 01/14/21 Loc: [place] Room: Type: [facility] Attending Dr: Madonna Torrez NP Ordering [...] Sweeney Jr., M.D.01/14/2021 6:46 PM Dictation Location: [place] [address] Transcribed By: [facility] 01/14/211845 Dictated By: Henrry Sweeney Jr, MD 01/14/211840 Signed By: 01/14/211845 Normal [facility] [id number] 02-16-2020 SARS-CoV-2 Not Detected Normal Not Detected [facility] Comment on above: Result Comment: (NOT E) Testing was performed using the Aptima SARS-CoV-2 assay. This test was developed and its performance characteristics determined by [employer]. This test has not been FDA cleared [...] result in this assay. Performed At: = [facility] [address] Edwina Lutz [id number] Macy Ortega MD Ph:[phone] Performed By: #### A COV #### [facility] [address] [place] [address] Senior Engineering Technician: Bronson Webster MD Vital Signs Date Time Vital Sign Value Performing Clinician Facility 07-15-2023 13:44-0500 Body temperature 98.01 [degF] Priscilla Albert APRN.INDUSTRIAL ECONOMICS PROFESSOR Work Phone: [facility] 07-15-2023 13:44-0500 Diastolic blood pressure 81 mm[Hg] Priscilla Albert APRN.INDUSTRIAL ECONOMICS PROFESSOR Work Phone: [facility] 07-15-2023 13:44-0500 Heart rate 89 /min Priscilla Ablert APRN.INDUSTRIAL ECONOMICS PROFESSOR Work Phone: [facility] 07-15-2023 13:44-0500 Systolic blood pressure 131 mm[Hg] Priscilla Albert APRN.INDUSTRIAL ECONOMICS PROFESSOR Work Phone: [facility] 12-29-2019 05:16-0400 BMI (Body Mass Index) 37.24 kg/m2 Raheel Kaminski [facility], [place] 12-29-2019 05:16-0400 Body Temperature 97.3 [degF] [facility] [place] [place] 12-29-2019 05:16-0400 Body weight 121.11 kg [facility] [place], [place] 12-29-2019 05:16-0400 BP Diastolic 65 mm[Hg] Raheel [place], [place] 12-29-2019 05:16-0400 BP Systolic 114 mm[Hg] Raheel [place], [place] 12-29-2019 05:16-0400 Height 180.3 cm Raheel [place] 12-29-2019 05:16-0400 Pulse (Heart Rate) 60 /min Raheel Ruchi [place], [place] 12-29-2019 05:16-0400 Pulse Oximetry 97 % Raehel Jackson [place], [place] 12-29-2019 05:16-0400 Respiratory Rate 18 /min Raheel Jackson [place], [place] Encounters Encounter Date Encounter Type Care Provider Facility Start: 03-26-2024 End: 03-26-2024 ambulatory Rony Daniels MD [facility] Start: 03-12-2024 End: 03-12-2024 ambulatory [facility] Start: 08-22-2023 End: 08-22-2023 ambulatory Rony Daniels MD [facility] Start: 08-01-2023 End: 08-01-2023 ambulatory Rony Daniels MD [facility] Start: 07-21-2023 End: 07-22-2023 ambulatory Laurel Parrish CATHERINE Facility:[facility] Start: 07-18-2023 End: 07-18-2023 ambulatory [facility] Start: 07-15-2023 End: 07-15-2023 ambulatory HENRRY VARGAS Facility:[facility] Start: 07-15-2023 End: 07-15-2023 Patient encounter procedure Priscilla Albert APRN.INDUSTRIAL ECONOMICS PROFESSOR Work Phone: [facility] Comment on above: Primary hypertension (Primary Dx) Start: 08-26-2022 End: 08-26-2022 Emergency department patient visit CARISSA BRADFORD [facility] Start: 06-28-2022 End: 06-28-2022 ambulatory MARIE HENRY Facility:[facility] Start: 12-21-2021 End: 12-21-2021 ambulatory MARIE CARL Facility:[facility] Start: 12-11-2021 ambulatory MARIE HENRY Facility: [facility] Start: 09-27-2021 End: 09-27-2021 ambulatory JOSHUA BAILEY Facility:[facility] Start: 08-11-2021 End: 08-11-[address] MARJAN HAILE Facility:[facility] Start: 09-22-2020 End: 09-22-2020 Patient encounter procedure Jaz Adrityra Iglesias Work Phone: [facility] Start: 08-25-2020 End: 08-25-2020 Patient encounter procedure Jean-Claude Redmond [facility] Start: 02-12-2020 End: 02-13-2020 Patient encounter procedure BESSIE MOSES [facility] Start: 02-12-2020 End: 02-12-2020 Subsequent hospital visit by physician ARIADNA Kerr Start: 12-29-2019 End: 12-29-2019 Emergency department patient visit RAHEEL JACKSON [facility] Start: 12-29-2019 End: 12-29-2019 Emergency department patient visit Raheel Ruchimaxime Boss Phone: [facility] ED Comment on above: Exposure [...] 08-17-2026 Tetanus vaccination Tetanus: Every 1 0yrs [facility] Start: 08-17-2026 Urine microalbumin profile DTaP,Tdap,Td Vaccine (2 - Td or Tdap) [facility] Start: 04-15-2023 Covid-19 Vaccine ( season) Covid-19 Vaccine ( season) [facility] Start: 04-15-2023 Influenza vaccination Influenza Vacc ine (#1) [facility] Start: 08-15-2022 Depression Assessment Depression Ass essment [facility] Start: 09-22-2020 COVID-19 Vaccine (Moderna) (#2) COVID-19 Vaccine (Moderna) (#2) [facility] Start: 09-22-2020 End: 09-22-2020 Immunization 09/22/2020 Immunization Primary Care Jaz Iglesias MD [id number] [facility] [address] [place], [place] [id number] [facility] [employer] [facility] Start: 04-15-2020 Influenza vaccination [place] Start: 04-15-2020 Influenza vaccinatio n given Sequential Influenza Vaccine (#1) [facility] Start: 2013 HPV Testing HPV Testing [facility] Start: 2004 Pap Testing Pap Testing [facility] Start: 2001 Hepatitis C antibody , confirmatory test Hepatitis C Screening [facility] Start: 2001 Hepatitis C Screening Hepatitis C Sc reening [facility] Start: 2001 HIV Screening HIV Screening [facility] Start: 1998 HIV screening HIV Screening [facility] Start: 1995 Adolescent depressio n screening assessment Depression Screening (PHQ9) [facility] Start: 1989 Pneumococcal vaccination Pneumococcal Vaccine (1 - PCV) [facility] Start: 1986 History and physical examination, annual for health maintenance Wellness Visit [facility] Start: 1983 Creatinine measurement Creatinine mo [place], [place] Start: 1983 Hepatitis B Vaccine (1 of 3 - 3-dose series) Hepatitis B Vaccine (1 of 3 - 3-dose series) [facility] Start: 1983 Potassium monitoring Potassium monit [place], [place] Start: 1983 Screening for malign ant neoplasm of cervix Pap Smear [facility] Start: 1983 Tetanus vaccination Tetanus: Every 1 0yrs [facility] End: 02-12-2020 Covid-19 Ambulatory Covid-19 Ambulatory Lab Routine Once for 1 Occurrences starting 02/12/2020 until 02/12/2020 [place], [place] Comment on above: Once for 1 Occurrenc es starting 02/12/2020 until 02/12/2020 Covid-19 Ambulatory Covid-19 Amb ulatory Lab Routine 02/12/2020 7:08 AM EDT [place], [place] Immunizations Immunization Date Immunization Notes Care Provider Fa carmen 06-04-2022 influenza virus vacc ine, unspecified formulation Priscilla Albert APRN.INDUSTRIAL ECONOMICS PROFESSOR Work Phone: [facility] 09-22-2020 Moderna SARS-CoV-2 Vaccination Lizbeth Mcclendon [facility] 08-25-2020 Moderna SARS-CoV-2 Vaccination Jean-Claude Nyla [facility] Payers Date Payer Category Payer Unknown [id number] 2019 Unknown 1985 Unknown [id number] 2.16.8 [id number] 1983 Unknown [id number] 2.16.84 [id number] 1983 Unknown [id number] 2.16.84 [id number] 1983 Unknown [id number] 2.16.84 [id number] 1983 Unknown [id number] 2.16.84 [id number] 1983 Unknown [id number] 2.16.84 [id number] 1983 Unknown [id number] 2.16. [id number] 1983 Unknown [id number] 2.16. [id number] 1983 Unknown [id number] 2.16. [id number] 1983 Unknown [id number] 2.16. [id number] 1983 Unknown [id number] 2.16. [id number] 1961 Self-pay [id number] Self-pay Social History Date Type Detail Facility Start: 12-29-2019 End: 07-15-2023 Tobacco smoking status NHIS Current every day smoker [facility] Start: 12-29-2019 End: 07-15-2023 Cigarettes smoked current (pack per day) - Reported [place], [place] Start: 12-29-2019 Alcohol intake Lifetime non-d giovanny (finding) [place], [place] Start: 12-29-2019 History SDOH Alcohol Frequency 1 [place], [place] Start: 1985 Sex Assigned At Not on file [place] Exposure to SARS-CoV -2 (event) Unable to assess [place], [place] Exposure to SARS-CoV -2 (event) Not sure [facility] History of tobacco use Cigarette Smoker [facility] Start: 07-15-2023 Tobacco use and exposure User of smokeless tobacco [facility] Start: 07-15-2023 Tobacco use panel [facility] Progress note 07-15-2023 Note Date & Type Note Facility 07-15-2023 Note HNO ID: [id number] Author: Priscilla Albert APRN.INDUSTRIAL ECONOMICS PROFESSOR Service: ? Author Type: Nurse Practitioner Type: Progress Notes Filed: 07/15/2023 4:34 PM Note Text: CC: Headache and high BP HPI: Silver Andujar is a 37 year old female who presents to the [facility] walk in clinic for the above [...] seek emergency care Gayatri Tony, MSN, RN-BC [employer] OPERATOR Student Gayatri Tony, student nurse practitioner, and myself have interviewed the patient. I re-performed the HPI and physical exam. Assessment and plan was developed together. I spent a total of 30 minutes on the date of the service which included preparing to see the patient, [id number] patient care, completing clinical documentation, obtaining and/or reviewing separately obtained history, performing a medically appropriate examination, counseling and educating the patient/family/caregiver, and ordering medications, tests, or procedures. Priscilla Albert APRN.PABLO [facility] History of Present illness Narrative [...] seek emergency care Gayatri Tony, MSN, RN-BC [employer] OPERATOR Student Gayatri Tony, student nurse practitioner, and myself have interviewed the patient. I re-performed the HPI and physical exam. Assessment and plan was developed together. I spent a total of 30 minutes on the date of the service which included preparing to see the patient, [id number] patient care, completing clinical documentation, obtaining and/or reviewing separately obtained history, performing a medically appropriate examination, counseling and educating the patient/family/caregiver, and ordering medications, tests, or procedures. Priscilla Albert APRN.INDUSTRIAL ECONOMICS PROFESSOR documented in this encounter [facility] Clinical Note 09-27-2021 Note Date & [...] by: RICARDO WEBB Date: 2021-09-27 13:13 [facility] Evaluation note Note Date & Type Note Facility Evaluation note Diagnosis Primary hypertension- Primary Unspecified essential hypertension documented in this encounter [facility] Discharge Instructions * Instructions* Crystal Little MD - 12/29/2019 Thank you for visiting [facility] Emergency Department. You need to call No primary care provider on file. to make an appointment as directed for follow up. Should you have any questions regarding your care or further treatment, please call [facility] Emergency Department at [phone]. Take any medications as prescribed, if given [...] FoundDocuments on File Type Date Recorded Patient Donor Relations Associate Expl anation Advance Directives and Living Will Power of Commercial Lines Underwriter Documents on File Type Date Recorded Patient Donor Relations Associate Expl anation Advance Directives and Living Will [...] section and content) DATE CREATED AUTHOR 03/06/2020 [facility] DATE CREATED AUTHOR AUTHOR'S ORGANIZ ATION 01/30/2021 [facility] DATE CREATED AUTHOR AUTHOR'S ORGANIZ ATION 06/30/2022 [facility] DATE CREATED AUTHOR AUTHOR'S ORGANIZ ATION 08/26/2022 [facility] DATE CREATED AUTHOR AUTHOR'S ORGANIZ ATION 07/18/2023 [facility] DATE CREATED AUTHOR AUTHOR'S ORGANIZ ATION 07/23/2023 [facility] DATE CREATED AUTHOR AUTHOR'S ORGANIZ ATION 04/11/2024 [facility] Source Comments (unrecognize d section and content) In the event this informatio n is protected by the Federal Confidentiality of Alcohol and Drug Abuse Patient Records regulations: The Federal rules restrict any use of the information to criminally investigate or prosecute any alcohol or drug abuse patient.[facility] Care Teams (unrecognized sec tion and content) Analysis Manager 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 [employer] [facility]. provides no warranty or guarantee of the accuracy or completeness of information in this document.
== END 2024-05-09 15:29 | disposition home or self-care (01) ==
LOC: PM 15:31
PROVIDERS: PCP Nurse Practitioner Family; Visit Provider Nurse Practitioner
DX: M47.816 Spondylosis without myelopathy or radiculopathy, lumbar region (principal); M48.062 Spinal stenosis, lumbar region with neurogenic claudication; Z79.891 Long term (current) use of opiate analgesic; M46.1 Sacroiliitis, not elsewhere classified
CPT/HCPCS: G0463

== ENCOUNTER 2024-05-28 08:25 | Day surgery (SDC) | payer OTHER, SELFPAY ==
--- OUTSIDE RECORDS SUMMARY | 2024-05-28 08:31 | XMS_ITS | CCD ---
Author Organization [facility] Care Team Providers Care Traffic Director Name Role Phone Unavailable Primary Care Provider [...] Primary Care Unavailab Laurel Dixon Attending Unavailable Giashleyitis , Rony Clifford Attending Unavailable Giashleyitis , Rony Clifford Attending Unavailable Frances BARROW, Rony Clifford Attending Unavailable Frances BARROW, Andrius Clifford Attending Unavailable Frances BARROW, Andrius Venessa Attending Unavailable Gironal BARROW, Rony Clifford Attending Unavailable Allergies Allergy Classification Reported Allergen(s) Allergy Type Date of Onset Reaction(s) Facility (3 sources) Acetaminophen / oxyCODONE Drug Allergy 04-21-20 18 Itching [place], [place] (3 sources) busPIRone Drug Allergy 04-21-20 18 Other: See Comments [place], [place] (3 sources) Sulfamethoxazole / Trimethoprim Drug Allergy 04-21-20 18 Anaphylaxis [place], [place] (2 sources) Acetaminophen / oxyCODONE; 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: [Percocet] Drug Allergy 08-15-19 15 [facility] Repository (2 sources) Adhesive agent Drug allergy (disorder) 11-28-19 15 [facility] Repository (3 sources) busPIRone; 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: [BuSpar] Drug Allergy 08-07-20 16 [facility] Repository (2 sources) Latex; 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: [Latex] Drug allergy (disorder) [facility] Repository (1 source) Sulfamethoxazole / Trimethoprim Drug Allergy [facility] Repository (1 source) venlafaxine Drug Allergy [facility] Repository (1 source) Adhesive bandage; 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: [Adhesive Bandage] Propensity to adverse reactions (disorder) [facility] Repository (1 source) Sulfamethoxazole / Trimethoprim; 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: [Bactrim] Drug Allergy [facility] Repository Medications Current Medications Medication [...] 06-30-2022 Chronic Other aftercare (1 source) Other usp (current) drug therapy; 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: [OTH JAIL CURRENT DRUG THERAPY] Onset: 06-30-2022 Episodic Other [...] Interpretation Reference Range Facility [place] 07-21-2023 Consent [id number] [facility] [id number]#[id number] F [facility] In office Testingon 07-21-20 23 In office Testing [id number] FF [facility] Registrationon 07-21-2023 Registration [id number] F [facility] CNOVon 07-15-2023 CNOV Office Visit (RUFINA ) -------- SILVER ANDUJAR ([id number]) 1985 F Date Time Provider Department 07/15/23 1:45 PM PRISCILLA ALBERT During your visit today, we recorded the following information about you: Temperature Pulse Blood pressure 98 degrees 89/minute 131/81 Priscilla Albert APRN.SUMMER CLERK 07/15/2023 4:34 PM Signed CC: Headache and [...] seek emergency care Gayatri Tony, MSN, RN-BC PATTERN MECHANIC Student Gayatri Tony, student nurse practitioner, and myself have interviewed the patient. I re-performed the HPI and physical exam. Assessment and plan was developed together. I spent a total of 30 minutes on the date of the service which included preparing to see the patient, [id number] patient care, completing clinical documentation, obtaining and/or reviewing separately obtained history, performing a medically appropriate examination, counseling and educating the patient/family/caregiver , and ordering medications, tests, or procedures. Priscilla Albert APRN.SUMMER CLERK Referring Provider: SELF [[id number]] Allergies As of Date: 07/15/2023 Noted Allergy Reaction BUSPIRONE 04/21/2018 14 - Other: See Comments OXYCODONE-ACETAMINOPHEN 04/21/2018 9 - Itching SULFAMETHOXAZOLE-TRIMETH OPRIM 04/21/2018 10 - Anaphylaxis Date Reviewed: 07/15/2023 Reviewed by: Priscilla Albert APRN.SUMMER CLERK - Fully Assessed Reason for Visit: Headache [...] Sweeney MD 08/26/22 Final result Normal [facility] Comment on above: Order Comment: Reaso n [...] Sweeney MD 08/26/22 Final result Normal [facility] Comment on above: Order Comment: Reaso n [...] RICARDO WEBB Date: 2022-06-28 14:32 Normal [facility] CULTURE URINEon 12-22-2021 CULTURE URINE Culture Observations : MODERATE GROWTH OF MIXED SKIN CHARLY. NO POTENTIAL PATHOGENS SEEN. Normal [facility] Comment on above: Performed By: #### U RCX #### [facility] [address] [address] [address] Reba Swain CBC W MANUAL DIFFon 12-22-19 22 ATYPICAL LYMPH # Normal [facility] Comment on above: Performed By: #### C BCMAN #### [facility] [address] [address] [address] Reba Swain ATYPICAL LYMPH % Normal [facility] Comment on above: Performed By: #### C TRAMAINE #### [facility] [address] [place] [address] Dr. Reba Swain BAND # Normal 0.0-0.3 [facility] Comment on above: Performed By: #### C TRAMAINE #### [facility] [address] [place] [address] Dr. Reba Swain BAND % Normal 0-5 [facility] Comment on above: Performed By: #### C TRAMAINE #### [facility] [address] [place] [address] Dr. Reba Swain BASOM # 0.08 103/ul Normal 0.00-0.10 [facility] Comment on above: Performed By: #### C TRAMAINE #### [facility] [address] [place] [address] Dr. Reba Swain BASOM % 1.0 % Normal 0.2-2.0 [facility] Comment on above: Performed By: #### C TRAMAINE #### [facility] [address] [place] [address] Dr. Reba Swain BLAST # Normal [facility] Comment on above: Performed By: #### C TRAMAINE #### [facility] [address] [place] [address] Dr. Reba Swain BLAST % Normal [facility] Comment on above: Performed By: #### C TRMAAINE #### [facility] [address] [place] [address] Dr. Reba Swain CORRECTED WBC Normal 4.0-11.0 [facility] Comment on above: Performed By: #### C TRAMAINE #### [facility] [address] [place] [address] Dr. Reba Swain EOS # 0.08 103/ul Normal 0.00-0.70 [facility] Comment on above: Performed By: #### C TRAMAINE #### [facility] [address] [place] [address] Dr. Reba Swain EOS% 1.0 % Normal 0.9-7.0 [facility] Comment on above: Performed By: #### C TRAMAINE #### [facility] [address] [place] [address] Dr. Reba Swain HCT 42.3 % Normal 36.0-48.0 [facility] Comment on above: Performed By: #### C TRAMAINE #### [facility] [address] [address] [address] Reba Swain HGB 14.0 g/dl Normal 12.0-16.0 [facility] Comment on above: Performed By: #### C TRAMAINE #### [facility] [address] [place] [address] Dr. Reba Swain LYMPHM # 0.83 103/ul Critically low 1.20-3.80 [facility] Comment on above: Performed By: #### C TRAMAINE #### [facility] [address] [place] [address] Dr. Reba Swain LYMPHM% 10.0 % Critically low 20.5-60.[address] [facility] Comment on above: Performed By: #### C TRAMAINE #### [facility] [address] [place] [address] Dr. Reba Swain MCH 30.6 pg Normal 26.7-34.0 [facility] Comment on above: Performed By: #### C TRAMAINE #### [facility] [address] [place] [address] Dr. Reba Swain MCHC 33.1 g/dl Normal 29.9-35.2 [facility] Comment on above: Performed By: #### C TRAMAINE #### [facility] [address] [place] [address] Dr. Reba Swain MCV 92.4 fL Normal 81.0-99.0 [facility] Comment on above: Performed By: #### C TRAMAINE #### [facility] [address] [place] [address] Dr. Reba Swain METAMYELOCYTE # Normal [facility] Comment on above: Performed By: #### C TRAMAINE #### [facility] [address] [place] [address] Dr. Reba Swain METAMYELOCYTE % Normal [facility] Comment on above: Performed By: #### C BCMAN #### [facility] [address] [address] [address] Reba Swain MONOM# 0.25 103/ul Critically low 0.30-0.80 [facility] Comment on above: Performed By: #### C BCMAN #### [facility] [address] [address] [address] Reba Swain MONOM% 3.0 % Normal 1.7-12.0 [facility] Comment on above: Performed By: #### C BCMAN #### [facility] [address] [address] [address] Reba Swain MPV 10.3 fL Normal 9.5-13.5 [facility] Comment on above: Performed By: #### C BCNIKI #### [facility] [address] [place] [address] Dr. Reba Swain MYELOCYTE # Normal [facility] Comment on above: Performed By: #### C BCNIKI #### [facility] [address] [place] [address] Dr. Reba Swain MYELOCYTE % Normal [facility] Comment on above: Performed By: #### C BCNIKI #### [facility] [address] [place] [address] Dr. Reba Swain NRBC Normal [facility] Comment on above: Performed By: #### C TRAMAINE #### [facility] [address] [place] [address] Dr. Reba Swain PLT 190 103/ul Normal 150-450 [facility] Comment on above: Performed By: #### C BCMAN #### [facility] [address] [place] [address] Dr. Reba Swain RBC 4.58 106/ul Normal 4.20-5.40 [facility] Comment on above: Performed By: #### C BCNIKI #### [facility] [address] [place] [address] Dr. Reba Swain RDW 13.3 % Normal 11.0-15.0 [facility] Comment on above: Performed By: #### Lexie REDD #### [facility] [address] [place], [place] [address] Dr. Reba Swain SEG # 7.06 103/ul Critically high 1.40-6.50 [facility] Comment on above: Performed By: #### Lexie REDD #### [facility] [address] [place], [place] [address] Dr. Reba Swain SEG % 85.0 % Critically high 43.0-75.0 [facility] Comment on above: Performed By: #### Lexie REDD #### [facility] [address] [place], [place] [address] Dr. Reba Swain WBC 8.3 103/ul Normal 4.0-11.0 [facility] Comment on above: Performed By: #### Lexie REDD #### [facility] [address] [address] HEAD WO CONon 12-21-2021 CT HEAD WO [facility] HEAD CT WITHOUT CONTRAST, 12/21/2021 6:23 PM [...] Joe SO Date: 2021-12-21 19:59 Normal [facility] ER URINE PROFILEon 2 Bilirubin Ql (U) Negative Normal NEGATIVE [facility] Comment on above: Performed By: #### E ESTEPHANIA CONTRERAS #### [facility] [address] [address] [address] Reba Swain Clarity (U) CLEAR Normal CLEAR [facility] Comment on above: Performed By: #### E RUR, UMICRO #### [facility] [address] [place] [address] Dr. Reba Swain Color (U) YELLOW Normal YELLOW [facility] Comment on above: Performed By: #### Amy CONTRERAS UMICRO #### [facility] [address] [place] [address] Dr. Reba Swain ERUAHD A micrscopic examina tion will be performed if indicated. Normal [facility] Comment on above: Performed By: #### Amy CONTRERAS UMICRO #### [facility] [address] [place] [address] Dr. Reba wSain Glucose Ql (U) Negative Normal NEGATIVE [facility] Comment on above: Performed By: #### Amy CONTRERAS UMICRO #### [facility] [address] [place] [address] Dr. Reba Swain Hemoglobin Ql (U) Negative Normal NEGATIVE [facility] Comment on above: Performed By: #### Amy CONTRERAS UMICRO #### [facility] [address] [place] [address] Dr. Reba Swain Ketones Ql (U) Negative Normal NEGATIVE [facility] Comment on above: Performed By: #### Amy CONTRERAS UMICRO #### [facility] [address] [place] [address] Dr. Reba Swain LEUKOCYTES Negative Normal NEGATIVE [facility] Comment on above: Performed By: #### Aym CONTRERAS UMICRO #### [facility] [address] [place] [address] Dr. Reba Swain Nitrite Ql (U) Negative Normal NEGATIVE [facility] Comment on above: Performed By: #### Amy CONTRERAS UMICRO #### [facility] [address] [place] [address] Dr. Reba Swain pH (U) 7.0 [pH] Normal 5-9 [facility] Comment on above: Performed By: #### Amy CONTRERAS UMICRO #### [facility] [address] [place] [address] Dr. Reba Swain Protein (U) [Mass/Vol] 100 mg/dL Abnormal NEGATIVE/ TRACE [facility] Comment on above: Performed By: #### ESTEPHANIA HUTCHISON #### [facility] [address] [place] [address] Dr. Reba Swain SPEC GRAVITY 1.025 Normal 1.005-<=1.025 [facility] Comment on above: Performed By: #### ESTEPHANIA HUTCHISON #### [facility] [address] [place] [address] Dr. Reba Swain UR MICRO IND INDICATED Normal [facility] Comment on above: Performed By: #### ESTEPHANIA HUTCHISON #### [facility] [address] [place] [address] Dr. Reba Swain Urobilinogen Qn (U) 0.2 {Tamia'U}/dL Normal 0.2 - 1. 0 [facility] Comment on above: Performed By: #### ESTEPHANIA HUTCHISON #### [facility] [address] [place] [address] Dr. Reba Swain PROF CHEM 8 (BAS METB)on Anion gap [Moles/Vol] 14.8 mmol/L Normal [facility] Comment on above: Performed By: #### B MP #### [facility] [address] [place] [address] Dr. Reba Swain Calcium [Mass/Vol] 8.5 mg/dL Normal 8.5-10.1 [facility] Comment on above: Performed By: #### B MP #### [facility] [address] [place] [address] Dr. Reba Swain Chloride [Moles/Vol] 100 mmol/L Normal 98-107 [facility] Comment on above: Performed By: #### B MP #### [facility] [address] [place] [address] Dr. Reba Swain CO2 [Moles/Vol] 23.7 mmol/L Normal 21.0-32.0 [facility] Comment on above: Performed By: #### B MP #### [facility] [address] [place] [address] Dr. Reba Swain Creatinine [Mass/Vol] 0.79 mg/dL Normal 0.55-1.02 [facility] Comment on above: Performed By: #### B MP #### [facility] [address] [address] [address] Reba Swain EGFR-AF EQUATORIAL GUINEAN >60 Normal >=60 [facility] Comment on above: Performed By: #### B MP #### [facility] [address] [address] [address] Reba Swain EGFR-NON AF EQUATORIAL GUINEAN >60 Normal >=60 [facility] Comment on above: Performed By: #### B MP #### [facility] [address] [place] [address] Dr. Reba Swain Glucose [Mass/Vol] 107 mg/dL Critically high 74-106 [facility] Comment on above: Performed By: #### B MP #### [facility] [address] [address] [address] Reba Swain Potassium [Moles/Vol] 3.5 mmol/L Normal 3.5-5.1 [facility] Comment on above: Performed By: #### B MP #### [facility] [address] [place] [address] Dr. Reba Swain Sodium [Moles/Vol] 135 mmol/L Critically low 136-145 [facility] Comment on above: Performed By: #### B MP #### [facility] [address] [place] [address] Dr. Reba Swain Urea nitrogen [Mass/Vol] 9.0 mg/dL Normal 7.0-18.0 [facility] Comment on above: Performed By: #### B MP #### [facility] [address] [place] [address] Dr. Reba Swain Urea nitrogen/Creatinine [Mass ratio] 11.4 mg/mg Normal [facility] Comment on above: Performed By: #### B MP #### [facility] [address] [place] [address] Dr. Reba Swain TROPONIN, HIGH SENSITIVITYon 12-21-2021 HSTROP 4.3 pg/mL Normal 4.0-51.3 [facility] Comment on above: Result Comment: CUT- OFF POINTS HAVE BEEN ESTABLISHED BASED ON THE FOURTH UNIVERSAL DEFINITIONS OF MYOCARDIAL INFARCTION. THE UPPER REFERENCE LIMIT (URL) OF TROPONIN, DEFINED THE 99TH PERCENTILE OF cTnI DISTRIBUTION IN A REFERENCE POPULATION, HAS BEEN CONFIRMED THE DECISION THRESHOLD FOR PR DIAGNOSIS. Performed By: #### H STROPN #### [facility] [address] [place] [address] Dr. Reba Swain URINE MICROSCOPIC ONLYon BACTERIA SMALL Abnormal NONE SEEN [facility] Comment on above: Performed By: #### E RUR, UMICRO #### [facility] [address] [place] [address] Dr. Reba Swain Bacteria identified Cx Nom (U) INDICATED Normal [facility] Comment on above: Performed By: #### E RUR, UMICRO #### [facility] [address] [place] [address] Dr. Reba Swain CAST SEEN Abnormal NONE SEEN [facility] Comment on above: Performed By: #### E RUR, UMICRO #### [facility] [address] [place] [address] Dr. Reba Swain Crystals LM Nom (Urine sed) NONE SEEN Normal NONE SEEN [facility] Comment on above: Performed By: #### E RUR, UMICRO #### [facility] [address] [place] [address] Dr. Reba Swain Epithelial cells LM Ql (Urine sed) FEW Abnormal NONE SEEN /RARE [facility] Comment on above: Performed By: #### E RUR, UMICRO #### [facility] [address] [place] [address] Dr. Reba Swain MUCOUS TRACE Abnormal NONE SEEN [facility] Comment on above: Performed By: #### E RUR, UMICRO #### [facility] [address] [place] [address] Dr. Reba Swain RBC 0-2 Normal 0-2 [facility] Comment on above: Performed By: #### E RUR, UMICRO #### [facility] [address] [address] [address] Reba Swain WBC 2-5 Abnormal NONE SEEN [facility] Comment on above: Performed By: #### ESTEPHANIA HUTCHISON #### [facility] [id number] Reba Swain XR lumbar spine min 4V*on XR lumbar spine min 4V* [facility] [place] [address] [place] [address] XRay Report Signed Patient: Silver Andujar MR#: [id number] : 1985 Acct:[id number] Age/Sex: 35 / F ADM Date: 01/14/21 Loc: [place] Room: Type: [facility] Attending Dr: Madonna Torrez NP Ordering [...] Sweeney Jr., M.D.01/14/2021 6:46 PM Dictation Location: [place] [address] Transcribed By: [facility] 01/14/211845 Dictated By: Henrry Sweeney Jr, MD 01/14/211840 Signed By: 01/14/211845 Normal [facility] [id number] 02-16-2020 SARS-CoV-2 Not Detected Normal Not Detected [facility] Comment on above: Result Comment: (NOT E) Testing was performed using the Aptima SARS-CoV-2 assay. This test was developed and its performance characteristics determined by [employer]. This test has not been FDA cleared [...] detected) result in this assay. Performed At: [employer] [facility] [id number] Macy Ortega MD Ph:[phone] Performed By: #### A COV #### [facility] [address] [place] [address] Seed Specialist: Bronson Webster MD Vital Signs Date Time Vital Sign Value Performing Clinician Facility 07-15-2023 13:44-0500 Body temperature 98.01 [degF] Priscilla Albert APRN.SUMMER CLERK Work Phone: [facility] 07-15-2023 13:44-0500 Diastolic blood pressure 81 mm[Hg] Priscilla Albert APRN.SUMMER CLERK Work Phone: [facility] 07-15-2023 13:44-0500 Heart rate 89 /min Priscilla Albert APRN.SUMMER CLERK Work Phone: [facility] 07-15-2023 13:44-0500 Systolic blood pressure 131 mm[Hg] Priscilla Albert APRN.SUMMER CLERK Work Phone: [facility] 12-29-2019 05:16-0400 BMI (Body Mass Index) 37.24 kg/m2 Raheel Kaminski [place], [place] 12-29-2019 05:16-0400 Body Temperature 97.3 [degF] Raheel Jackson [place], [place] 12-29-2019 05:16-0400 Body weight 121.11 kg Raheel Jackson [place], [place] 12-29-2019 05:16-0400 BP Diastolic 65 mm[Hg] Raheel [place], [place] 12-29-2019 05:16-0400 BP Systolic 114 mm[Hg] Raheel [place] 12-29-2019 05:160400 Height 180.3 cm Raheel [place] 12-29-2019 05:16-0400 Pulse (Heart Rate) 60 /min Raheel Jackson [place], [place] 12-29-2019 05:16-0400 Pulse Oximetry 97 % Raheel [place], [place] 12-29-2019 05:16-0400 Respiratory Rate 18 /min [place] Encounters Encounter Date Encounter Type Care Provider Facility Start: 04-30-2024 End: 04-30-2024 ambulatory Rony Daniels MD Facility: [place] Start: 03-26-2024 End: 03-26-2024 ambulatory Rony Daniels MD Facility: [place] Start: 03-12-2024 End: 03-12-2024 ambulatory Rony Daniels MD Facility: [place] Start: 08-22-2023 End: 08-22-2023 ambulatory Rony Daniels MD Facility: [place] Start: 08-01-2023 End: 08-01-2023 ambulatory Rony Daniels MD Facility: [place] Start: 07-21-2023 End: 07-22-2023 ambulatory Laurel ALEXANDER Facility:[facility] Start: 07-18-2023 End: 07-18-2023 ambulatory Rony Daniels MD Facility: [place] Start: 07-15-2023 End: 07-15-2023 ambulatory HENRRY RAYEY Facility:[facility] Start: 07-15-2023 End: 07-15-2023 Patient encounter procedure Priscilla Albert APRFosterSUMMER CLERK Work Phone: [facility] Comment on above: Primary hypertension (Primary Dx) Start: 08-26-2022 End: 08-26-2022 Emergency department patient visit CARISSA Crespo [facility] Start: 06-28-2022 End: 06-28-2022 ambulatory MARIE HENRY Facility:[facility] Start: 12-21-2021 End: 12-21-2021 ambulatory MARIE HENRY Facility:[facility] Start: 12-11-2021 ambulatory MARIE HENRY Facility: [facility] Start: 09-27-2021 End: 09-27-2021 ambulatory JOSHUA BAILEY Facility:[facility] Start: 08-11-2021 End: 08-11-[address] MARJAN HAILE Facility:[facility] Start: 09-22-2020 End: 09-22-2020 Patient encounter procedure Jaz Adri Iglesias Work Phone: [facility] Start: 08-25-2020 End: 08-25-2020 Patient encounter procedure Jean-Claude Redmond [facility] Start: 02-12-2020 End: 02-13-2020 Patient encounter procedure BESSIE MOSES [facility] Start: 02-12-2020 End: 02-12-2020 Subsequent hospital visit by physician [facility] Start: 12-29-2019 End: 12-29-2019 Emergency department patient visit RAHEEL JACKSON [facility] Start: 12-29-2019 End: 12-29-2019 Emergency department patient visit Raheel Jackson Work Phone: [facility] Comment on above: Exposure to needle, initial encounter (Primary Dx) Procedures Date Procedure Procedure Detail Performing Clinician Start: 08-26-2022 [facility] IC SUPPLIES CARISSA BRADFORD Start: 08-26-2022 APPLY DEAN WRAP CARISSA LIZ Start: 08-26-2022 Radiologic examinati on knee 3 views CARISSA BRADFORD Start: 08-26-2022 Dup-scan xtr veins unilateral/limited study CARISSA BRADFORD Start: 02-12-2020 COVID-19 AMBULATORY KARENA HALEY JACKSON Plan of Treatment Date Care Activity Detail Author Start: 08-17-2026 Tetanus vaccination Tetanus: Every 1 0yrs [facility] Start: 08-17-2026 Urine microalbumin profile DTaP,Tdap,Td Vaccine (2 - Td or Tdap) [facility] Start: 04-15-2023 Covid-19 Vaccine ( season) Covid-19 Vaccine () [facility] Start: 04-15-2023 Influenza vaccination Influenza Vacc ine (#1) [facility] Start: 08-15-2022 Depression Assessment Depression Ass essment [facility] Start: 09-22-2020 COVID-19 Vaccine (Moderna) (#2) COVID-19 Vaccine (Moderna) (#2) [facility] Start: 09-22-2020 End: 09-22-2020 Immunization 09/22/2020 Immunization Primary Care Jaz Iglesias MD [address] [facility] [address] [place] [address] [phone] [facility] Employer [facility] Start: 04-15-2020 Influenza vaccination [facility] [place] Start: 04-15-2020 Influenza vaccinatio n given Sequential Influenza Vaccine (#1) [facility] Start: 2013 HPV Testing HPV Testing [facility] Start: 2004 Pap Testing Pap Testing [facility] Start: 2001 Hepatitis C antibody , confirmatory test Hepatitis C Screening [facility] Start: 2001 Hepatitis C Screening Hepatitis C Sc dedra [facility] Start: 2001 HIV Screening HIV Screening [facility] Start: 1998 HIV screening HIV Screening [facility] Start: 1995 Adolescent depressio n screening assessment Depression Screening (PHQ9) [facility] Start: 1989 Pneumococcal vaccination Pneumococcal Vaccine (1 - PCV) [facility] Start: 1986 History and physical examination, annual for health maintenance Wellness Visit [facility] Start: 1983 Creatinine measurement Creatinine mo nitsamara [place], [place] Start: 1983 Hepatitis B Vaccine (1 of 3 - 3-dose series) Hepatitis B Vaccine (1 of 3 - 3-dose series) [facility] Start: 1983 Potassium monitoring Potassium monit oring [place], [place] Start: 1983 Screening for malign ant neoplasm of cervix Pap Smear [facility] Start: 1983 Tetanus vaccination Tetanus: Every 1 0yrs [facility] End: 02-12-2020 Covid-19 Ambulatory Covid-19 Ambulatory Lab Routine Once for 1 Occurrences starting 02/12/2020 until 02/12/2020 [place], [place] Comment on above: Once for 1 Occurrenc es starting 02/12/2020 until 02/12/2020 Covid-19 Ambulatory Covid-19 Amb ulatory Lab Routine 02/12/2020 7:08 AM EDT [place], [place] Immunizations Immunization Date Immunization Notes Care Provider Olamide chapa 06-04-2022 influenza virus vacc ine, unspecified formulation Priscilla Albert APRN.SUMMER CLERK Work Phone: [facility] 09-22-2020 Moderna SARS-CoV-2 Vaccination Lizbeth Mcclendon [facility] 08-25-2020 Moderna SARS-CoV-2 Vaccination Jean-Claude Redmond [facility] Payers Date Payer Category Payer Unknown [id number] 2019 Unknown 1985 Unknown [id number] 2.16.8 [id number] 1983 Unknown [id number] 2.16.84 [id number] 1983 Unknown [id number] 2.16.84 [id number] 1983 Unknown [id number] 2.16.84 [id number] 1983 Unknown [id number] 2.16.84 [id number] 1983 Unknown [id number] 2.16.84 [id number] 1983 Unknown [id number] 2.16. [id number] 1983 Unknown [id number] 2.16. [id number] 1983 Unknown [id number] 2.16. [id number] 1983 Unknown [id number] 2.16. [id number] 1983 Unknown [id number] 2.16. [id number] 1983 Unknown [id number] 2.16. [id number] 1961 Self-pay [id number] Self-pay Social History Date Type Detail Facility Start: 12-29-2019 End: 07-15-2023 Tobacco smoking status NHIS Current every day smoker [facility] Start: 12-29-2019 End: 07-15-2023 Cigarettes smoked current (pack per day) - Reported [place], [place] Start: 12-29-2019 Alcohol intake Lifetime non-d giovanny (finding) [place], [place] Start: 12-29-2019 History SDOH Alcohol Frequency 1 [place], [place] Start: 1985 Sex Assigned At Not on file [place] Exposure to SARS-CoV -2 (event) Unable to assess [place], [place] Exposure to SARS-CoV -2 (event) Not sure [facility] History of tobacco use [facility] Start: 07-15-2023 Tobacco use and exposure User of smokeless tobacco [facility] Start: 07-15-2023 Tobacco use panel [facility] Progress note 07-15-2023 Note Date & Type Note Facility 07-15-2023 Note HNO ID: [id number] Author: Priscilla Albert APRN.SUMMER CLERK Service: ? Author Type: Nurse Practitioner Type: Progress Notes Filed: 07/15/2023 4:34 PM Note Text: CC: Headache and high BP HPI: Silver Andujar is a 37 year old female who presents to the [facility] walk in clinic for the above chief [...] seek emergency care Gayatri Tony, MSN, RN-BC PATTERN MECHANIC Student Gayatri Tony, student nurse practitioner, and myself have interviewed the patient. I re-performed the HPI and physical exam. Assessment and plan was developed together. I spent a total of 30 minutes on the date of the service which included preparing to see the patient, [id number] patient care, completing clinical documentation, obtaining and/or reviewing separately obtained history, performing a medically appropriate examination, counseling and educating the patient/family/caregiver, and ordering medications, tests, or procedures. Priscilla Albert APRN.PABLO [facility] History of Present illness Narrative [...] seek emergency care Gayatri Tony, MSN, RN- PATTERN MECHANIC Student Gayatri Tony, student nurse practitioner, and myself have interviewed the patient. I re-performed the HPI and physical exam. Assessment and plan was developed together. I spent a total of 30 minutes on the date of the service which included preparing to see the patient, [id number] patient care, completing clinical documentation, obtaining and/or reviewing separately obtained history, performing a medically appropriate examination, counseling and educating the patient/family/caregiver, and ordering medications, tests, or procedures. Priscilla Albert APRN.SUMMER CLERK documented in this encounter [facility] Clinical Note 09-27-2021 Note Date [...] by: RICARDO WEBB Date: 2021-09-27 13:13 [facility] Evaluation note Note Date & Type Note Facility Evaluation note Diagnosis Primary hypertension- Primary Unspecified essential hypertension documented in this encounter [facility] Discharge Instructions * Instructions* Crystal Little MD - 12/29/2019 Thank you for visiting [facility] Emergency Department. You need to call No primary care provider on file. to make an appointment as directed for follow up. Should you have any questions regarding your care or further treatment, please call [facility] Emergency Department at [phone]. 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 Advance Directives and Living Will [...] section and content) DATE CREATED AUTHOR 03/06/2020 [facility] DATE CREATED AUTHOR AUTHOR'S ORGANIZ ATION 01/30/2021 [facility] DATE CREATED AUTHOR AUTHOR'S ORGANIZ ATION 06/30/2022 [facility] DATE CREATED AUTHOR AUTHOR'S ORGANIZ ATION 08/26/2022 [facility] DATE CREATED AUTHOR AUTHOR'S ORGANIZ ATION 07/18/2023 [facility] DATE CREATED AUTHOR AUTHOR'S ORGANIZ ATION 07/23/2023 [facility] DATE CREATED AUTHOR AUTHOR'S ORGANIZ ATION 05/20/2024 [facility] Source Comments (unrecognize d section and content) In the event this informatio n is protected by the Federal Confidentiality of Alcohol and Drug Abuse Patient Records regulations: The Federal rules restrict any use of the information to criminally investigate or prosecute any alcohol or drug abuse patient.[facility] Care Teams (unrecognized sec tion and content) Traffic Director 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 [employer] [facility]. provides no warranty or guarantee of the accuracy or completeness of information in this document.
[2024-05-28 08:40] VITALS: BP 144/87; PULSE 71; TEMP 36.2; O2SAT 97
[2024-05-28 09:35] VITALS: BP 135/90; BP 145/89; PULSE 68; PULSE 78; O2SAT 97; O2SAT 98
[2024-05-28] MEDS: BUPIVACAINE HCL 0.25% PF 25 MG/10 ML VIAL 8 ML INJ (09:37)
[2024-05-28] MEDS: LIDOCAINE HCL 2% 400 MG/20 ML MDV INJ (09:38)
--- NOTE | 2024-05-28 09:42 | W.PM.PROCNOT ---
Date of procedure: 05/28/24 Pre-op diagnosis: Pain due to lumbar spondylosis without myelopathy Post-op diagnosis: same as pre-op Procedure: Procedure: Bilateral L4-5, L5-S1 medial branch block Medications: Bupivacaine 0.25% 6cc The patient was seen and examined in the preoperative holding area.? An informed consent was obtained and placed on the chart.? The patient was brought to the medical procedure unit and placed in the prone position.? A timeout was completed verifying correct patient, procedure site, positioning, plan, and special equipment.? Using aseptic technique, the needle was placed at left L4. Under direct fluoroscopic visualization a Quincke-tipped spinal needle was advanced to the junction of the superior articulating process with the transverse process at the designated medial branch segment.? Preceded by negative aspiration, the above-mentioned injectate was placed in 1 mL aliquots.? The procedure was repeated at left L5, S1.? The needle was removed and insertion site was covered. The same procedure, at the same levels, was completed on the right side. The patient was taken to the postprocedural recovery area and monitored for an appropriate length of time before found suitable for discharge in the company of a responsible adult. Anesthesia: Local Surgeon: Rony Daniels Pathology: none sent Condition: stable Disposition: no change
== END 2024-05-28 09:45 | disposition home or self-care (01) ==
LOC: SURGOUT 08:26
PROVIDERS: PCP Nurse Practitioner Family; Visit Provider Anesthesiology
DX: M47.816 Spondylosis without myelopathy or radiculopathy, lumbar region (principal)
CPT/HCPCS: 64493; 64494; J0665

== ENCOUNTER 2024-06-05 14:15 | Outpatient (OUT) | payer OTHER, SELFPAY ==
--- NOTE | 2024-06-05 | CONS_ITS ---
CONSULTATION DATE: 06/05/2024 TO: Milana Tripp CNP CHIEF COMPLAINT: Includes bilateral lower back pain. HISTORY: She reports being in 6-7/10 pain, sharp in character, increased with activities such as standing, walking and performing transitioning maneuvers. Flexion is also quite painful for the patient. She denies any change in bowel and bladder habits or new sensorimotor changes in the lower extremities. CURRENT MEDICATION: Includes Tylenol #3 one pill daily p.r.n., gabapentin 600 b.i.d. EXAMINATION: Notable for patient having no clinical radiculopathy or myelopathy involving the lower extremities. Patient did have severe pain with lumbar facet joint loading maneuvers occurring bilaterally at L4-5, L5-S1 with associated myofascial spasm and myalgia of the lumbar paravertebral muscles, worse on the right than the left side. IMPRESSION: 1. Our impression is patient appears to have chronic pain secondary to lumbosacral spondylosis. 2. Myalgia with myofascial spasm of the erector spinae muscles occurring bilaterally, worse on the right side. She has undergone two diagnostic medial branch blocks at L4-5, L5-S1 and patient received at least 80% reduction in pain symptoms starting in the immediate post procedural period, lasting for several hours, with recurrence of pain back to her baseline. RECOMMENDATIONS: I have recommended she proceed with a rhizotomy using radiofrequency ablation, denervating the L4-5 and the L5-S1 facet joint bilaterally under anesthesia per patient request. I have also restarted her Mobic 15 mg daily in attempts to reduce her use of Tylenol #3. I have also added baclofen to her regimen, 10 mg pills, 1-2 at h.s. as tolerated. Lastly, I have given her a script for aquatic therapy and Narcan. As part of providing excellent, safe, comprehensive care, the following was completed at our patient's visit: 1. A medication reconciliation and review to ensure accurate knowledge of current/active medications, including asking our patients to inform us about any [id number] medications or herbal remedies/nutritional supplements/alternative remedies. 2. A review to specifically ensure our patients have had annual screening for: elevated body mass index (BMI, see intake chart for exact total), tobacco use, screening for depression, and screening for unhealthy alcohol use. When screening is concerning, patients are provided with education and the specific recommendation to discuss the concerning health issue and treatment options with their primary care provider. INOCENCIO
== END 2024-06-05 14:16 | disposition home or self-care (01) ==
PROVIDERS: PCP Nurse Practitioner Family; Visit Provider Anesthesiology Pain Medicine
DX: M47.816 Spondylosis without myelopathy or radiculopathy, lumbar region (principal); M62.838 Other muscle spasm
CPT/HCPCS: G0463

== ENCOUNTER 2024-06-25 07:53 | Day surgery (SDC) | payer OTHER, SELFPAY ==
[2024-06-25 08:05] VITALS: BP 136/83; PULSE 83; TEMP 36.1; O2SAT 100
[2024-06-25] MEDS: 0.9 % SODIUM CHLORIDE 500 ML IV (08:12)
--- OUTSIDE RECORDS SUMMARY | 2024-06-25 08:15 | XMS_ITS | CCD ---
Author Organization [facility] Care Team Providers Care Manager Java Name Role Phone Unavailable Primary Care Provider [...] Consulting Unavailable DEAN LOBO Admitting Unavailable DEAN LOOB Attending Unavailable CARISSA BRADFORD Attending Unavailable Henrry Vargas DO Primary Care Provider HENRRY VARGAS Primary Care Unavailab Laurel Dixon Attending Unavailable Gieditis , Rony Clifford Attending Unavailable Giedraitis , Rony Clifford Attending Unavailable Gieditis , Rony Clifford Attending Unavailable Giashleyitis , Andemely Clifford Attending Unavailable Giedraitis , Andrius Clifford Attending Unavailable Giedraitis , Andrius Clifford Attending Unavailable Giedraitis , Rony Clifford Attending Unavailable Giedraitis MD, Rony Clifford Attending Unavailable Allergies Allergy Classification Reported Allergen(s) Allergy Type Date of Onset Reaction(s) Facility (3 sources) Acetaminophen / oxyCODONE Drug Allergy 04-21-20 18 Itching [place] (3 sources) busPIRone Drug Allergy 04-21-20 18 Other: See Comments [place] (3 sources) Sulfamethoxazole / Trimethoprim Drug Allergy 04-21-20 18 Anaphylaxis [place] (2 sources) Acetaminophen / oxyCODONE; 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: [...] [Adhesive Bandage] Propensity to adverse reactions (disorder) [facility] (1 source) Sulfamethoxazole / Trimethoprim; 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: [Bactrim] Drug Allergy [facility] Medications Current Medications Medication Drug [...] 06-30-2022 Chronic Other aftercare (1 source) Other residential (current) drug therapy; 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: [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 THERAPY] Onset: 06-30-2022 Episodic [...] Interpretation Reference Range Facility [facility] 07-21-2023 Consent [id number] F [facility] In office Testingon 07-21-20 In office Testing [id number] FF [facility] Registrationon 07-21-2023 Registration [id number] F [facility] CNOVon 07-15-2023 CNOV Office Visit (WALKMN ) -------- SILVER ANDUJAR ([id number]) 1985 F Date Time Provider Department 07/15/23 1:45 PM PRISCILLA ALBERT During your visit today, we recorded the following information about you: Temperature Pulse Blood pressure 98 degrees 89/minute 131/81 Priscilla Albert APRN.TURKEY ROLL MAKER 07/15/2023 4:34 PM Signed CC: Headache and [...] seek emergency care Gayatri Tony, MSN, RN-BC CONCRETE RUBBER Student Gayatri Tony, student nurse practitioner, and myself have interviewed the patient. I re-performed the HPI and physical exam. Assessment and plan was developed together. I spent a total of 30 minutes on the date of the service which included preparing to see the patient, [id number] patient care, completing clinical documentation, obtaining and/or reviewing separately obtained history, performing a medically appropriate examination, counseling and educating the patient/family/caregiver , and ordering medications, tests, or procedures. Priscilla Albert APRN.TURKEY ROLL MAKER Referring Provider: SELF [[id number]] Allergies As of Date: 07/15/2023 Noted Allergy Reaction BUSPIRONE 04/21/2018 14 - Other: See Comments OXYCODONE-ACETAMINOPHEN 04/21/2018 9 - Itching SULFAMETHOXAZOLE-TRIMETH OPRIM 04/21/2018 10 - Anaphylaxis Date Reviewed: 07/15/2023 Reviewed by: Priscilla Albert APRN.TURKEY ROLL MAKER - Fully Assessed Reason for Visit: Headache [...] by PRISCILLA ALBERT on 07/15/23 Normal [facility] DUP LOWER EXTREMITY RIGHT VENon 08-26-2022 US DUP LOWER EXTREMITY RIGHT SUNNY EXAMINATION: DUPLEX [...] RCX #### [facility] [address] [place], [place] [address] Dr. Reba Swain CBC W MANUAL DIFFon 12-22-19 22 ATYPICAL LYMPH # Normal [facility] Comment on above: Performed By: #### C BCMAN #### [facility] [address] [place] [address] Dr. Reba Swain ATYPICAL LYMPH % Normal [facility] Comment on above: Performed By: #### C BCMAN #### [facility] [address] [place] [address] Dr. Reba Swain BAND # Normal 0.0-0.3 [facility] Comment on above: Performed By: #### C BCMAN #### [facility] [address] [place] [address] Dr. Reba Swain BAND % Normal 0-5 [facility] Comment on above: Performed By: #### C BCMAN #### [facility] [address] [place] [address] Dr. Reba Swain BASOM # 0.08 103/ul Normal 0.00-0.10 [facility] Comment on above: Performed By: #### C BCMAN #### [facility] [address] [place] [address] Dr. Reba Swain BASOM % 1.0 % Normal 0.2-2.0 [facility] Comment on above: Performed By: #### C BCNIKI #### [facility] [address] [place] [address] Dr. Reba Swain BLAST # Normal [facility] Comment on above: Performed By: #### C TRAMAINE #### [facility] [address] [place] [address] Dr. Reba Swain BLAST % Normal [facility] Comment on above: Performed By: #### C BCNIKI #### [facility] [address] [place] [address] Dr. Reba Swain CORRECTED WBC Normal 4.0-11.0 [facility] Comment on above: Performed By: #### C BCMAN #### [facility] [address] [place] [address] Dr. Reba Swain EOS # 0.08 103/ul Normal 0.00-0.70 [facility] Comment on above: Performed By: #### C TRAMAINE #### [facility] [address] [place] [address] Dr. Reba Swain EOS% 1.0 % Normal 0.9-7.0 [facility] Comment on above: Performed By: #### C TRAMAINE #### [facility] [address] [place] [address] Dr. Reba Swain HCT 42.3 % Normal 36.0-48.0 [facility] Comment on above: Performed By: #### C TRAMAINE #### [facility] [address] [place] [address] Dr. Reba Swain HGB 14.0 g/dl Normal 12.0-16.0 [facility] Comment on above: Performed By: #### C TRAMAINE #### [facility] [address] [place] [address] Dr. Reba Swain LYMPHM # 0.83 103/ul Critically low 1.20-3.80 [facility] Comment on above: Performed By: #### C TRAMAINE #### [facility] [address] [place] [address] Dr. Reba Swain LYMPHM% 10.0 % Critically low 20.5-60.0 [facility] Comment on above: Performed By: #### C TRAMAINE #### [facility] [address] [place] [address] Dr. Reba Swain MCH 30.6 pg Normal 26.7-34.0 [facility] Comment on above: Performed By: #### C TRAMAINE #### [facility] [address] [place] [address] Dr. Reba Swain MCHC 33.1 g/dl Normal 29.9-35.2 [facility] Comment on above: Performed By: #### C TRAMAINE #### [facility] [address] [place] [address] Dr. Reba Swain MCV 92.4 fL Normal 81.0-99.0 [facility] Comment on above: Performed By: #### C TRAMAINE #### [facility] [address] [place] [address] Dr. Reba Swain METAMYELOCYTE # Normal [facility] Comment on above: Performed By: #### C TRAMAINE #### [facility] [address] [place] [address] Dr. Reba Swain METAMYELOCYTE % Normal [facility] Comment on above: Performed By: #### C TRAMAINE #### [facility] [address] [place] [address] Dr. Reba Swain MONOM# 0.25 103/ul Critically low 0.30-0.80 [facility] Comment on above: Performed By: #### C TRAMAINE #### [facility] [address] [place] [address] Dr. Reba Swain MONOM% 3.0 % Normal 1.7-12.0 [facility] Comment on above: Performed By: #### C TRAMAINE #### [facility] [address] [place] [address] Dr. Reba Swain MPV 10.3 fL Normal 9.5-13.5 [facility] Comment on above: Performed By: #### C TRAMAINE #### [facility] [address] [place] [address] Dr. Reba Swain MYELOCYTE # Normal [facility] Comment on above: Performed By: #### Lexie REDD #### [facility] [address] [place] [address] Dr. Reba Swain MYELOCYTE % Normal [facility] Comment on above: Performed By: #### C TRAMAINE #### [facility] [address] [place] [address] Dr. Reba Swain NRBC Normal [facility] Comment on above: Performed By: #### C TRAMAINE #### [facility] [address] [place] [address] Dr. Reba Swain PLT 190 103/ul Normal 150-450 [facility] Comment on above: Performed By: #### C TRAMAINE #### [facility] [address] [place] [address] Dr. Reba Swain RBC 4.58 106/ul Normal 4.20-5.40 [facility] Comment on above: Performed By: #### Lexie REDD #### [facility] [address] [place], [place] [id number] Dr. Reba Swain RDW 13.3 % Normal 11.0-15.0 [facility] Comment on above: Performed By: #### Lexie REDD #### [facility] [address] [place] [address] [address] eRba Swain SEG # 7.06 103/ul Critically high 1.40-6.50 [facility] Comment on above: Performed By: #### Lexie REDD #### [facility] [address] [place] [address] [address] Reba Swain SEG % 85.0 % Critically high 43.0-75.0 [facility] Comment on above: Performed By: #### Lexie REDD #### [facility] [address] [place] [address] [address] Reba Swain WBC 8.3 103/ul Normal 4.0-11.0 [facility] Comment on above: Performed By: #### Lexie REDD #### [facility] [address] [place] [address] HEAD WO CONon [...] Bilirubin Ql (U) Negative Normal NEGATIVE [facility] Comment on above: Performed By: #### ESTEPHANIA HUTCHISON #### [facility] [address] [place] [address] [address] Reba Swain Clarity (U) CLEAR Normal CLEAR [facility] Comment on above: Performed By: #### Amy CONTRERAS UMICRO #### [facility] [address] [place] [address] Dr. Reba Swain Color (U) YELLOW Normal YELLOW [facility] Comment on above: Performed By: #### Amy CONTRERAS UMICRO #### [facility] [address] [place] [address] Dr. Reba Swain ERUAHD A micrscopic examina tion will be performed if indicated. Normal [facility] Comment on above: Performed By: #### Amy CONTRERAS UMICRO #### [facility] [address] [place] [address] Dr. Reba Swain Glucose Ql (U) Negative Normal NEGATIVE [facility] Comment on above: Performed By: #### Amy CONTRERAS UMICRO #### [facility] [address] [place] [address] Dr. Reba Swain Hemoglobin Ql (U) Negative Normal NEGATIVE [facility] Comment on above: Performed By: #### Amy CONTRERAS UMICRO #### [facility] [address] [place] [address] Dr. Reba Swain Ketones Ql (U) Negative Normal NEGATIVE [facility] Comment on above: Performed By: #### Amy CONTRERAS UMICRO #### [facility] [address] [place] [address] Dr. Reba Swain LEUKOCYTES Negative Normal NEGATIVE [facility] Comment on above: Performed By: #### Amy CONTRERAS UMICRO #### [facility] [address] [place] [address] Dr. Reba Swain Nitrite Ql (U) Negative Normal NEGATIVE [facility] Comment on above: Performed By: #### Amy CONTRERAS UMICRO #### [facility] [address] [place] [address] Dr. Reba Swain pH (U) 7.0 [pH] Normal 5-9 [facility] Comment on above: Performed By: #### E RUR, UMICRO #### [facility] [address] [place] [address] Dr. Reba Swain Protein (U) [Mass/Vol] 100 mg/dL Abnormal NEGATIVE/ TRACE [facility] Comment on above: Performed By: #### Amy CONTRERAS, UMICRO #### [facility] [address] [place] [address] Dr. Reba Swain SPEC GRAVITY 1.025 Normal 1.005-<=1.025 [facility] Comment on above: Performed By: #### Amy CONTRERAS, UMICRO #### [facility] [address] [place] [address] Dr. Reba Swain UR MICRO IND INDICATED Normal [facility] Comment on above: Performed By: #### Amy CONTRERAS UMICRO #### [facility] [address] [place] [address] Dr. Reba Swain Urobilinogen Qn (U) 0.2 {Tamia'U}/dL Normal 0.2 - 1. 0 [facility] Comment on above: Performed By: #### mAy CONTRERAS ICRO #### [facility] [address] [place] [address] Dr. Reba Swain PROF CHEM 8 (BAS METB)on Anion gap [Moles/Vol] 14.8 mmol/L Normal [facility] Comment on above: Performed By: #### B MP #### [facility] [address] [place] [address] Dr. Reba Swain Calcium [Mass/Vol] 8.5 mg/dL Normal 8.5-10.1 [facility] Comment on above: Performed By: #### B MP #### [facility] [address] [place] [address] Dr. Reba Swain Chloride [Moles/Vol] 100 mmol/L Normal 98-107 [facility] Comment on above: Performed By: #### B MP #### [facility] [address] [place] [address] Dr. Reba Swain CO2 [Moles/Vol] 23.7 mmol/L Normal 21.0-32.0 [facility] Comment on above: Performed By: #### B MP #### [facility] [address] [place] [address] [address] Reba Swain Creatinine [Mass/Vol] 0.79 mg/dL Normal 0.55-1.02 [facility] Comment on above: Performed By: #### B MP #### [facility] [address] [place] [address] [address] Reba Swain EGFR-AF GUINEAN >60 Normal >=60 [facility] Comment on above: Performed By: #### B MP #### [facility] [address] [place] [address] [address] Reba Swain EGFR-NON AF GUINEAN >60 Normal >=60 [facility] Comment on above: Performed By: #### B MP #### [facility] [address] [place] [address] [address] Reba Swain Glucose [Mass/Vol] 107 mg/dL Critically high 74-106 [facility] Comment on above: Performed By: #### B MP #### [facility] [address] [place] [address] [address] Reba Swain Potassium [Moles/Vol] 3.5 mmol/L Normal 3.5-5.1 [facility] Comment on above: Performed By: #### B MP #### [facility] [address] [place] [address] Dr. Reba Swain Sodium [Moles/Vol] 135 mmol/L Critically low 136-[address] [facility] Comment on above: Performed By: #### B MP #### [facility] [address] [place] [address] Dr. Reba Swain Urea nitrogen [Mass/Vol] 9.0 mg/dL Normal 7.0-18.0 [facility] Comment on above: Performed By: #### B MP #### [facility] [address] [place] [address] Dr. Reba Swain Urea nitrogen/Creatinine [Mass ratio] 11.4 mg/mg Normal [facility] Comment on above: Performed By: #### B MP #### [facility] [address] [place] [address] Dr. Reba Swain TROPONIN, HIGH SENSITIVITYon 12-21-2021 HSTROP 4.3 pg/mL Normal 4.0-51.3 [facility] Comment on above: Result Comment: CUT- OFF POINTS HAVE BEEN ESTABLISHED BASED ON THE FOURTH UNIVERSAL DEFINITIONS OF MYOCARDIAL INFARCTION. THE UPPER REFERENCE LIMIT (URL) OF TROPONIN, DEFINED THE 99TH PERCENTILE OF cTnI DISTRIBUTION IN A REFERENCE POPULATION, HAS BEEN CONFIRMED THE DECISION THRESHOLD FOR OK DIAGNOSIS. Performed By: #### H STROPN #### [facility] [address] [place] [address] Dr. Reba Swain URINE MICROSCOPIC ONLYon BACTERIA SMALL Abnormal NONE SEEN [facility] Comment on above: Performed By: #### Amy CONTRERAS UMICRO #### [facility] [address] [place] [address] Dr. Reba Swain Bacteria identified Cx Nom (U) INDICATED Normal [facility] Comment on above: Performed By: #### Amy CONTRERAS UMICRO #### [facility] [address] [place] [address] Dr. Reba Swain CAST SEEN Abnormal NONE SEEN [facility] Comment on above: Performed By: #### Amy CONTRERAS UMICRO #### [facility] [address] [place] [address] Dr. Reba Swain Crystals LM Nom (Urine sed) NONE SEEN Normal NONE SEEN [facility] Comment on above: Performed By: #### Amy CONTRERAS UMICRO #### [facility] [address] [place] [address] Dr. Reba Swain Epithelial cells LM Ql (Urine sed) FEW Abnormal NONE SEEN /RARE [facility] Comment on above: Performed By: #### Amy CONTRERAS UMICRO #### [facility] [address] [place] [address] Dr. Reba Swain MUCOUS TRACE Abnormal NONE SEEN [facility] Comment on above: Performed By: #### E DIANE UMICRO #### [facility] [address] [place] [address] Dr. Reba Swain RBC 0-2 Normal 0-2 [facility] Comment on above: Performed By: #### E ESTEPHANIA CONTRERAS #### [facility] [address] [place] [address] [address] Reba Swain WBC 2-5 Abnormal NONE SEEN [facility] Comment on above: Performed By: #### E ESTEPHANIA CONTRERAS #### [facility] [address] [place], [place] [address] Dr. Reba Swain XR lumbar spine min 4V*on XR lumbar spine min 4V* [facility] [place] [address] [place] [address] XRay Report Signed Patient: Silver Andujar MR#: [id number] : 1985 Acct:[id number] Age/Sex: 35 / F ADM Date: 01/14/21 Loc: [place] Room: Type: [facility] Attending Dr: Madonna Torrez NP Ordering Provider: [...] Sweeney Jr., M.D.01/14/2021 6:46 PM Dictation Location: [place] [address] Transcribed By: [facility] 01/14/211845 Dictated By: Henrry Sweeney Jr, MD 01/14/211840 Signed By: 01/14/211845 [facility] [id number] 02-16-2020 SARS-CoV-2 Not Detected Normal Not Detected [facility] Comment on above: Result Comment: (NOT E) Testing was performed using the Aptima SARS-CoV-2 assay. This test was developed and its performance characteristics determined by [employer]. This test has not been FDA cleared [...] result in this assay. Performed At: = [employer] [id number] Macy Ortega MD Ph:[phone] Performed By: #### A COV #### [facility] [address] [place] [address] Instructor Weaving: Bronson Webster MD Vital Signs Date Time Vital Sign Value Performing Clinician Facility 07-15-2023 13:44-0500 Body temperature 98.01 [degF] Priscilla Albert APRN.CNP Work Phone: [facility] 07-15-2023 13:44-0500 Diastolic blood pressure 81 mm[Hg] Priscilla Albert APRN.CNP Work Phone: [facility] 07-15-2023 13:44-0500 Heart rate 89 /min Priscilla Albert APRN.CNP Work Phone: [facility] 07-15-2023 13:44-0500 Systolic blood pressure 131 mm[Hg] Priscilla Albert APRN.CNP Work Phone: [facility] 12-29-2019 05:16-0400 BMI (Body Mass Index) 37.24 kg/m2 Raheel Kaminski [place], [place] 12-29-2019 05:16-0400 Body Temperature 97.3 [degF] [facility] [place] [place] 12-29-2019 05:16-0400 Body weight 121.11 kg Raheel [place], [place] 12-29-2019 05:16-0400 BP Diastolic 65 mm[Hg] [place], [place] 12-29-2019 05:16-0400 BP Systolic 114 mm[Hg] [place] 12-29-2019 05:16-0400 Height 180.3 cm [place] 12-29-2019 05:16-0400 Pulse (Heart Rate) 60 /min Raheel [place], [place] 12-29-2019 05:16-0400 Pulse Oximetry 97 % [place], [place] 12-29-2019 05:16-0400 Respiratory Rate 18 /min Raheel [place], [place] Encounters Encounter Date Encounter Type Care Provider Facility Start: 05-28-2024 End: 05-28-2024 ambulatory Rony Daniels MD Facility: [place] Start: 04-30-2024 End: 04-30-2024 ambulatory Rony Daniels MD Facility: [place] Start: 03-26-2024 End: 03-26-2024 ambulatory Rony Daniels MD Facility: [place] Start: 03-12-2024 End: 03-12-2024 ambulatory Rony Daniels MD Facility: [place] Start: 08-22-2023 End: 08-22-2023 ambulatory Rony Daniels MD Facility: [place] Start: 08-01-2023 End: 08-01-2023 ambulatory Rony Daniels MD Facility: [place] Start: 07-21-2023 End: 07-22-2023 ambulatory Laurel ALEXANDER Facility:[facility] Start: 07-18-2023 End: 07-18-2023 ambulatory Rony Daniels MD Facility:[facility] Start: 07-15-2023 End: 07-15-2023 ambulatory HENRRY RAYEY Facility:[facility] Start: 07-15-2023 End: 07-15-2023 Patient encounter procedure Priscilla Albert APRN.CNP Work Phone: [facility] Comment on above: Primary hypertension (Primary Dx) Start: 08-26-2022 End: 08-26-2022 Emergency department patient visit CARISSA Cherie [facility] Start: 06-28-2022 End: 06-28-2022 ambulatory MARIE HENRY Facility:[facility] Start: 12-21-2021 End: 12-21-2021 ambulatory MARIE HENRY Facility:[facility] Start: 12-11-2021 ambulatory MARIE HENRY Facility: [facility] Start: 09-27-2021 End: 09-27-2021 ambulatory JOSHUA BAILEY Facility:[facility] Start: 08-11-2021 End: 08-11-[address] MARJAN HAILE Facility:[facility] Start: 09-22-2020 End: 09-22-2020 Patient encounter procedure Jaz Adri Iglesias Work Phone: [facility] Start: 08-25-2020 End: 08-25-2020 Patient encounter procedure Jean-Claude Redmond [facility] Start: 02-12-2020 End: 02-13-2020 Patient encounter procedure BESSIE MOSES [facility] Start: 02-12-2020 End: 02-12-2020 Subsequent hospital visit by physician [facility] Start: 12-29-2019 End: 12-29-2019 Emergency department patient visit RAHEEL JACKSON [facility] Start: 12-29-2019 End: 12-29-2019 Emergency department patient visit Raheel Jackson Work Phone: [facility] Comment on above: Exposure to needle, initial encounter (Primary Dx) Procedures Date Procedure Procedure Detail Performing Clinician Start: 08-26-2022 [facility] CARISSA BRADFORD Start: 08-26-2022 APPLY DEAN WRAP CARISSA LIZ Start: 08-26-2022 Radiologic examinati on knee 3 views CARISSA BRADFORD Start: 08-26-2022 Dup-scan xtr veins unilateral/limited study CARISSA BRADFORD Start: 02-12-2020 COVID-19 AMBULATORY KARENA JACKSON Plan of Treatment Date Care Activity Detail Author Start: 08-17-2026 Tetanus vaccination Tetanus: Every [address] [facility] Start: 08-17-2026 Urine microalbumin profile DTaP,Tdap,Td Vaccine (2 - Td or Tdap) [facility] Start: 04-15-2023 Covid-19 Vaccine () Covid-19 Vaccine () [facility] Start: 04-15-2023 Influenza vaccination Influenza Vacc ine (#1) [facility] Start: 08-15-2022 Depression Assessment Depression Ass essment [facility] Start: 09-22-2020 COVID-19 Vaccine (Moderna) (#2) COVID-19 Vaccine (Moderna) (#2) [facility] Start: 09-22-2020 End: 09-22-2020 Immunization 09/22/2020 Immunization Primary Care Jaz Iglesias MD [address] [facility] [address] [place] [address] [phone] [facility] Employ[employer] [facility] Start: 04-15-2020 Influenza vaccination [facility], [place] Start: 04-15-2020 Influenza vaccinatio n given Sequential Influenza Vaccine (#1) [facility] Start: 2013 HPV Testing HPV Testing [facility] Start: 2004 Pap Testing Pap Testing [facility] Start: 2001 Hepatitis C antibody , confirmatory test Hepatitis C Screening [facility] Start: 2001 Hepatitis C Screening Hepatitis C Sc dedra [facility] Start: 2001 HIV Screening HIV Screening [facility] Start: 1998 HIV screening HIV Screening [facility] Start: 1995 Adolescent depressio n screening assessment Depression Screening (PHQ9) [facility] Start: 1989 Pneumococcal vaccination Pneumococcal Vaccine (1 - PCV) [facility] Start: 1986 History and physical examination, annual for health maintenance Wellness Visit [facility] Start: 1983 Creatinine measurement Creatinine mo nitoring [place] Start: 1983 Hepatitis B Vaccine (1 of 3 - 3-dose series) Hepatitis B Vaccine (1 of 3 - 3-dose series) [facility] Start: 1983 Potassium monitoring Potassium monit oring [place] Start: 1983 Screening for malign ant neoplasm of cervix Pap Smear [facility] Start: 1983 Tetanus vaccination Tetanus: Every [address] [facility] End: 02-12-2020 Covid-19 Ambulatory Covid-19 Ambulatory Lab Routine Once for 1 Occurrences starting 02/12/2020 until 02/12/2020 [place] Comment on above: Once for 1 Occurrenc es starting 02/12/2020 until 02/12/2020 Covid-19 Ambulatory Covid-19 Amb ulatory Lab Routine 02/12/2020 7:08 AM EDT [place] Immunizations Immunization Date Immunization Notes Care Provider [facility] 06-04-2022 influenza virus vacc ine, unspecified formulation Priscilla Albert APRN.[employer] Work Phone: [facility] 09-22-2020 Moderna SARS-CoV-2 Vaccination Lizbeth Mcclendon [facility] 08-25-2020 Moderna SARS-CoV-2 Vaccination Jean-Claude Nyla [facility] Payers Date Payer Category Payer Unknown [id number] 2019 Unknown 1985 Unknown [id number] 2.16.8 [id number] 1983 Unknown [id number] 2.16.84 [id number] 1983 Unknown [id number] 2.16.84 [id number] 1983 Unknown [id number] 2.16.84 [id number] 1983 Unknown [id number] 2.16.84 [id number] 1983 Unknown [id number] 2.16.84 [id number] 1983 Unknown [id number] 2.16. [id number] 1983 Unknown [id number] 2.16. [id number] 1983 Unknown [id number] 2.16. [id number] 1983 Unknown [id number] 2.16. [id number] 1983 Unknown [id number] 2.16. [id number] 1983 Unknown [id number] 2.16. [id number] 1983 Unknown [id number] 2.16. [id number] 1983 Unknown [id number] 2.16. [id number] 1961 Self-pay [id number] Self-pay Social History Date Type Detail Facility Start: 12-29-2019 End: 07-15-2023 Tobacco smoking status NHIS Current every day smoker [facility] Start: 12-29-2019 End: 07-15-2023 Cigarettes smoked current (pack per day) - Reported [place] Start: 12-29-2019 Alcohol intake Lifetime non-d giovanny (finding) [place] Start: 12-29-2019 History SDOH Alcohol Frequency 1 [place] Start: 1983 Sex Assigned At Not on file M [place], [place] Exposure to SARS-CoV -2 (event) Unable to assess [place] Exposure to SARS-CoV -2 (event) Not sure [facility] History of tobacco use Cigarette Smoker C [facility] Start: 07-15-2023 Tobacco use and exposure User of smokeless tobacco [facility] Start: 07-15-2023 Tobacco use panel [facility] Progress note 07-15-2023 Note Date & Type Note Facility 07-15-2023 Note HNO ID: [id number] Author: Priscilla Albert APRN.[employer] Service: ? Author Type: Nurse Practitioner Type: [...] seek emergency care Gayatri Tony, MSN, RN- CONCRETE RUBBER Student Gayatri Tony, student nurse practitioner, and myself have interviewed the patient. I re-performed the HPI and physical exam. Assessment and plan was developed together. I spent a total of 30 minutes on the date of the service which included preparing to see the patient, [id number] patient care, completing clinical documentation, obtaining and/or reviewing separately obtained history, performing a medically appropriate examination, counseling and educating the patient/family/caregiver, and ordering medications, tests, or procedures. Priscilla Albert APRN.[employer] [facility] History of Present illness Narrative 07-15-2023 [...] seek emergency care Gayatri Tony, MSN, RN-BC [employer]ER Student Gayatri Tony, student nurse practitioner, and myself have interviewed the patient. I re-performed the HPI and physical exam. Assessment and plan was developed together. I spent a total of 30 minutes on the date of the service which included preparing to see the patient, [id number] patient care, completing clinical documentation, obtaining and/or reviewing separately obtained history, performing a medically appropriate examination, counseling and educating the patient/family/caregiver, and ordering medications, tests, or procedures. Priscilla Albert APRN.[employer] documented in this encounter [facility] Clinical Note 09-27-2021 Note Date & [...] Unspecified essential hypertension documented in this encounter [facility] Discharge Instructions * Instructions* Crystal Little MD - 12/29/2019 Thank you for visiting [facility] Emergency Department. You need to call No primary care provider on file. to make an appointment as directed for follow up. Should you have any questions regarding your care or further treatment, please call [facility] Emergency Department at [phone]. 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 DATE CREATED AUTHOR AUTHOR'S ORGANIZ ATION 08/26/2022 [facility] DATE CREATED AUTHOR AUTHOR'S ORGANIZ ATION 07/18/2023 [facility] DATE CREATED AUTHOR AUTHOR'S ORGANIZ ATION 07/23/2023 [facility] DATE CREATED AUTHOR AUTHOR'S ORGANIZ ATION 06/13/2024 [facility] Source Comments (unrecognize d section and content) In the event this informatio n is protected by the Federal Confidentiality of Alcohol and Drug Abuse Patient Records regulations: The Federal rules restrict any use of the information to criminally investigate or prosecute any alcohol or drug abuse patient.[facility] Care Teams (unrecognized sec tion and content) Manager Java 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 [facility], [facility]. provides no warranty or guarantee of the accuracy or completeness of information in this document.
[2024-06-25] MEDS: TRIAMCINOLONE ACETONIDE 40 MG/ML VIAL 80 MG INJ (08:54)
[2024-06-25] MEDS: LIDOCAINE HCL 2% 400 MG/20 ML MDV INJ (08:54)
--- NOTE | 2024-06-25 09:04 | P.ON_ITS ---
Date of procedure: 06/25/24 Pre-op diagnosis: Pain due to lumbar spondylosis without myelopathy Post-op diagnosis: same as pre-op Procedure: Procedure: Bilateral L4-5, l5-S1 radiofrequency ablation Medications: Bupivacaine 0.25% 6cc, lidocaine 2% 6cc, kenalog 80mg The patient was seen and examined in the preoperative holding area.? The site was marked.? Written informed consent was obtained and placed on the chart.? The patient was brought to the medical procedure unit and placed in the prone position.? A timeout was completed verifying correct patient, procedure, positioning, and special requirements.? The skin overlying the target points, the designated medial branch, were prepped and draped in the usual sterile fashion.? The target point was achieved with a 20-gauge 15 cm with a 10 mm curved active tip radiofrequency cannula under direct fluoroscopic visualization.? The needle was inserted at level L4 on the right side. Needle tip position was confirmed with lateral fluoroscopic position.? Motor stimulation was carried out at 2 Hz up to 5 volts with the absence of extremity activity.? This was repeated at level L5, S1 on right side.?? Sensory stimulation was carried out.? Concordant pain was realized at the above- mentioned sites.? Then radiofrequency lesioning was carried out times 90 seconds at 80 degrees times 2 lesions at each level.? The radiofrequency probe was removed prior to cannula removal.? The above-mentioned injectate was placed in 1 mL increments.? The needle was removed. The same procedure, with the same steps, was then completed on the left side at the same levels. Insertion sites were covered.? The patient was taken to the postoperative recovery area and monitored for an appropriate length of time before being found suitable for discharge in the company of a responsible adult. Anesthesia: MAC Surgeon: Rony Daniels Pathology: none sent Condition: stable Disposition: no change
[2024-06-25 09:07] VITALS: BP 132/80; PULSE 67; TEMP 36.6; O2SAT 99
[2024-06-25 09:10] VITALS: BP 130/76; PULSE 76; TEMP 36.7; O2SAT 97
[2024-06-25] MEDS: BUPIVACAINE HCL 0.25% PF 25 MG/10 ML VIAL 4 ML INJ (09:10)
== END 2024-06-25 09:33 | disposition home or self-care (01) ==
LOC: SURGOUT 07:54
PROVIDERS: PCP Nurse Practitioner Family; Visit Provider Anesthesiology
DX: M47.816 Spondylosis without myelopathy or radiculopathy, lumbar region (principal)
CPT/HCPCS: 64635; 64636; J0665; J2704; J3301

== ENCOUNTER 2024-07-26 14:43 | Outpatient (OUT) | payer OTHER, SELFPAY ==
--- NOTE | 2024-07-26 15:11 | P.CN_ITS ---
Consult Note: HPI Data of Consult Patient: known to practice within the last 3 years Consult date: 07/18/23 Requesting Physician: Lorna Herring NP Primary Care Provider: MARIE HENRY Consult Narrative Reason for consult: Low back pain, bilateral lower extremity pain Narrative: 38yof who presents for evaluation. worsening low back pain with radiation into lower extremities. continues in provider directed home exercise program >6 weeks >3x/week, has engaged in chiropractice therapy. no relief. imaging reviewed, [facility] shows disc bulging with resultant stenosis at l4-5, l5-s1. has trialed mobic, robaxin, gabapentin, tylenol with limited benefit. denies adverse med side effects. Patient has reported improvement in pain and functional ability with tylenol #3 BID PRN, without side effects. Patient reporting >50% improvement in pain since bilateral L4 TFESI and bilateral L5 TFESI. Patient rating pain 4/10 in low back increasing to 8/10 at its worst. Reports heaviness/weakness in BLE. Pain increased with all activity and improved with lying down and heat. bilateral L4/5 L5/S1 facet RFA providing 75% improvement axial low back pain. cc:: CC: Lorna Herring NP Review of Systems ROS0 Status of ROS 10 or more systems reviewed and unremark able except as noted in history and below Musculoskeletal Reports: back pain PFSH PFSH Medical History (Updated 06/15/24 @ 10:33 by Faina Mcgill RN) Osteoarthritis ?M19.90 - Unspecified osteoarthritis, unspecified site (ICD-10) Acid reflux ?K21.9 - Gastro-esophageal reflux disease without esophagitis (ICD-10) Sleep apnea ?G47.30 - Sleep apnea, unspecified (ICD-10) HTN (hypertension) ?I10 - Essential (primary) hypertension (ICD-10) Surgical History Hx of cholecystectomy ?Z90.49 - Acquired absence of other specified parts of digestive tract (ICD- 10) H/O section ?Z98.891 - History of uterine scar from previous surgery (ICD-10) History of hysterectomy ?Z90.710 - Acquired absence of both cervix and uterus (ICD-10) Social History Smoking status: Current every day smoker Meds Home Medications and Allergies Home Medications ?Medication ?Instructions ?Recorded ?Confirmed ?Type hydrochlorothiazide 25 mg tablet 25 mg PO DAILY 06/16/23 06/25/24 History lisinopril 20 mg tablet 20 mg PO DAILY 06/16/23 06/25/24 History metoprolol succinate 25 mg 25 mg PO DAILY 06/16/23 06/25/24 History tablet,extended release 24 hr acetaminophen 500 mg tablet 1,000 mg PO DAILY PRN pain 07/18/23 06/25/24 History (Acetaminophen Pain Relief) biotin 10,000 mcg capsule 10,000 mcg PO DAILY 07/18/23 06/25/24 History topiramate 50 mg tablet (Topamax) 50 mg PO BID 08/22/23 06/25/24 History acetaminophen 300 mg-codeine 30 mg 1 tab PO BID PRN pain #45 tabs 03/28/24 06/25/24 Rx tablet gabapentin 600 mg tablet 600 mg PO BID #60 tabs 04/04/24 06/25/24 Rx hydroxyzine HCl 25 mg tablet 25 mg PO TID PRN anxiety 04/04/24 06/25/24 History phentermine 37.5 mg tablet 37.5 mg PO DAILY 05/28/24 06/25/24 History (Adipex-P) baclofen 10 mg tablet See Rx Instructions .Route 06/05/24 06/25/24 Rx .COMPLEX #60 tabs meloxicam 15 mg tablet 15 mg PO DAILY #30 tabs 06/05/24 06/25/24 Rx bupropion HCl 150 mg 24 hr tablet, 150 mg PO DAILY 06/25/24 06/25/24 History extended release (Wellbutrin XL) escitalopram oxalate 10 mg tablet 10 mg PO DAILY 06/25/24 06/25/24 History (Lexapro) Allergies Allergy/AdvReac Type Severity Reaction Status Date / Time buspirone (From BuSpar) Allergy Severe Migraine Verified 06/25/24 08:09 sulfamethoxazole (From Allergy Severe Anaphylaxis Verified 06/25/24 08:09 Bactrim) trimethoprim (From Bactrim) Allergy Severe Anaphylaxis Verified 06/25/24 08:09 venlafaxine (From Effexor) Allergy Severe syncope Verified 06/25/24 08:09 oxycodone (From Percocet) AdvReac Severe Anxiety Verified 06/25/24 08:09 Exam Constitutional Documenting provider has reviewed patient's vital signs: yes Common normals: no apparent distress, oriented x3, healthy appearing, alert and well nourished General appearance: cooperative HENMT Common normals: normocephalic, hearing grossly normal bilaterally and moist oral mucous membranes Head and scalp: normocephalic Eye Common normals: PERRL Pupil: PERRL Neck & C-Spine Common normals: full ROM General: normal visual inspection Chest Common normals: inspection of chest normal Respiratory Common normals: normal respiratory effort, no retractions and no use of accessory muscles Back & Pelvis Lumbar spine/lower back: ROM limited, pain with ROM and straight leg raise positive left Sacroiliac joints: SI joint(s) abnormal Other: bilateral sij positive klaus(patricks), gaenslens, thigh thrust, compression test bilateral facet loading positive tenderness over L3-S1 facets improved radicular symptoms on exam, sensation intact BLE strength 5/5 in BLE Extremity Common normals: normal to inspection and full ROM Neuro Common normals: oriented x3, CN's II-XII intact bilaterally, moves all extremities, no focal motor deficits, no sensory deficits noted and deep tendon reflexes 2+ bilaterally Sensorium/orientation: alert Motor exam: strength 5/5 throughout and no movement abnormalities noted Psych Common normals: mental status grossly normal, thought process normal, cooperative, affect normal, speech normal and activity/motor behavior normal Speech: normal speech Thought process: normal thought process Results Additional Findings Additional findings: If on a controlled substance or opioids, I have checked an [place] report on this patient and there are no aberrancies noted in the prescribing history.??If on a controlled substance or opioid a drug screen was completed and reviewed within the last year, and if there has not been a drug screen completed we ordered one today to monitor higher risk, state monitored pain medication use. As part of providing excellent, safe, comprehensive care, the following was completed at our patient's visit: 1. A medication reconciliation and review to ensure accurate knowledge of current/active medications, including asking our patients to inform us about any [id number] medications or herbal remedies/nutritional supplements/alternative remedies. 2. A review to specifically ensure our patients have had annual screening for screening for depression, screening for tobacco use, and screening for unhealthy alcohol use. For concerning screenings had a discussion with the patient, provided patient education, and recommended follow-up with primary care provider when appropriate. If patient noted with a risk of falling, they received education on strength, gait, and balance training to prevent future risk of falling. Assessment and Plan Assessment and Plan (1) Lumbar spondylosis: Assessment and Plan: The patient has had over 3 months of moderate to severe low back pain with functional impairment and inadequate response to conservative care including NSAIDS (unless there are contraindication such as concurrent blood thinners), multiple oral or topical pain medications, and home exercise program/physical therapy.? Patient has completed >6 weeks of guided home exercise program and/or formal physical therapy program without relief of their symptoms.? We discussed the risks and benefits of the procedure with the patient, and we are NOT planning on using sedation as outlined in the guidelines from Medicare unless there is a documented reason that sedation would be strongly recommended.?? ?The procedure will be completed with fluoroscopic guidance.? (2) Bilateral sacroiliitis: (3) Lumbar stenosis with neurogenic claudication: (4) Chronic prescription opiate use: Assessment and Plan: I feel these medications are improving the patient's quality of life and allow them to tolerate activities of daily living as well as participate in recreational activity.? The patient does not report intolerable side effects. The patient is NOT opioid naive and non-pharmacologic and non-opioid treatment has failed to significantly relieve the patient's pain and improve functionality. The patient has a diagnosis that is related to a somatic or visceral pain etiology. ? ?? I reviewed with the patient the potential risks and side effects with the use of? opioid medications including but not limited to respiratory depression,? sedation, and even . I verified the patient has access to naloxone should? these effects occur. I advised the patient to avoid the use of any other? sedation substances including alcohol, THC, and benzodiazepines while? taking opioid medications due to the risk of compounding side effects and? detrimental outcomes. I reviewed the [employer]CHANDISING, pain treatment agreement, urine? drug screen, and opioid start talking forms. The patient was advised to let? their family know they had Naloxone in case they would need to administer? the medication.? ?? A drug screen was completed within the last year, and no aberrancies were noted regarding their use of controlled substances. The patient understands they are subject to the terms and conditions of the pain contract that they have signed. ? ?? I have checked an [place] report on this patient today and there are no aberrancies noted in the prescribing history.? (5) Sacroiliitis: Plan defer lumbar ESIs or SIJ injection at this time change gabapentin 300mg BID, pharmacy supplied pt with 100mg BID last fill. pt was previously on 600mg BID continue baclofen 10mg daily PRN pain/spasms decrease tylenol #3 once daily PRN moderate to severe pain 20 tabs/month risks vs benefits of current medication regimen reviewed f/u 3 months sooner if needed
== END 2024-07-26 14:44 | disposition home or self-care (01) ==
LOC: PM 14:43
PROVIDERS: PCP Nurse Practitioner Family; Visit Provider Nurse Practitioner
DX: M47.816 Spondylosis without myelopathy or radiculopathy, lumbar region (principal); M46.1 Sacroiliitis, not elsewhere classified; M48.062 Spinal stenosis, lumbar region with neurogenic claudication; Z79.891 Long term (current) use of opiate analgesic
CPT/HCPCS: G0463

== ENCOUNTER 2024-08-07 14:41 | Emergency (ER) | payer OTHER, SELFPAY ==
[2024-08-07 14:44] VITALS: BP 126/62; PULSE 81; TEMP 36.6; O2SAT 99; BMI 38.7
--- OUTSIDE RECORDS SUMMARY | 2024-08-07 14:46 | XMS_ITS | CCD ---
Author Organization [facility] Pic[facility]Formerly [facility] Care Team Providers Care Trapper Animal Name Role Phone Unavailable Primary Care Provider [...] Unavailable Gieditis , Rony Clifford Attending Unavailable Gironal BARROW, Andemely Clifford Attending Unavailable Giedraitis , Andrius Clifford Attending Unavailable Giedraitis , Andrius Clifford Attending Unavailable Giedraitis , Rony Clifford Attending Unavailable Giedraitis MD, Rony Clifford Attending Unavailable Frances BARROW, Rony Clifford Attending Unavailable Allergies Allergy Classification Reported Allergen(s) Allergy Type Date of Onset Reaction(s) Facility (3 sources) Acetaminophen / oxyCODONE Drug Allergy 04-21-20 18 Itching [place] (3 sources) busPIRone Drug Allergy 04-21-20 18 Other: See Comments [place] (3 sources) Sulfamethoxazole / Trimethoprim Drug Allergy 04-21-20 18 Anaphylaxis [place] (2 sources) Acetaminophen / oxyCODONE; 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: [Percocet] Drug Allergy 08-15-19 15 [facility] (2 sources) Adhesive agent Drug allergy (disorder) 11-28-19 15 [facility] (3 sources) busPIRone; 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: [BuSpar] Drug Allergy 08-07-20 16 [facility] (2 sources) Latex; 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: [Latex] Drug allergy (disorder) [facility] (1 source) Sulfamethoxazole / Trimethoprim Drug Allergy [facility] (1 source) venlafaxine Drug Allergy [facility] (1 source) Adhesive bandage; 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: [Adhesive Bandage] Propensity to adverse reactions (disorder) [facility] Repository (1 source) Sulfamethoxazole / Trimethoprim; 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: [Bactrim] Drug Allergy [facility] Medications Current Medications Medication [...] 06-30-2022 Chronic Other aftercare (1 source) Other snf (current) drug therapy; 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: [OTH GROUP HOME [...] Interpretation Reference Range Facility [place] 07-21-2023 Consent [id number] F [facility] In office Testingon 07-21-20 23 In office Testing [id number] FF [facility] Registrationon 07-21-2023 Registration [id number] F [facility] CNOVon 07-15-2023 CNOV Office Visit (WALKMN ) -------- SILVER ANDUJAR ([id number]) 1985 F Date Time Provider Department 12/1/23 1:45 PM PRISCILLA ALBERTMN During your visit today, we recorded the following information about you: Temperature Pulse Blood pressure 98 degrees 89/minute 131/81 SunithaPriscilla, PAROLE SUPERVISOR.SUPERVISOR HOME ENERGY CONSULTANT 07/15/2023 4:34 PM Signed CC: Headache [...] seek emergency care Gayatri Tony, MSN, RN- PAROLE SUPERVISOR Student Gayatri Tony, student nurse practitioner, and myself have interviewed the patient. I re-performed the HPI and physical exam. Assessment and plan was developed together. I spent a total of 30 minutes on the date of the service which included preparing to see the patient, [id number] patient care, completing clinical documentation, obtaining and/or reviewing separately obtained history, performing a medically appropriate examination, counseling and educating the patient/family/caregiver , and ordering medications, tests, or procedures. Priscilla Albert APRN.SUPERVISOR HOME ENERGY CONSULTANT Referring Provider: SELF [[id number]] Allergies As of Date: 07/15/2023 Noted Allergy Reaction BUSPIRONE 04/21/2018 14 - Other: See Comments OXYCODONE-ACETAMINOPHEN 04/21/2018 9 - Itching SULFAMETHOXAZOLE-TRIMETH OPRIM 04/21/2018 10 - Anaphylaxis Date Reviewed: 07/15/2023 Reviewed by: Priscilla Albert APRN.SUPERVISOR HOME ENERGY CONSULTANT - Fully Assessed Reason for Visit: [...] Status:Closed by PRISCILLA ALBERT on 07/15/23 Normal [facility] US DUP LOWER EXTREMITY RIGHT VENon 08-26-2022 US [...] Henrry Sweeney MD 08/26/22 Final result Normal [facility] Comment on above: Order Comment: Reaso [...] Henrry Sweeney MD 08/26/22 Final result Normal [facility] Comment on above: Order Comment: Reaso [...] Date: 2022-06-28 14:32 Normal [facility] CULTURE URINEon 12-22-2021 CULTURE URINE Culture Observations : MODERATE GROWTH OF MIXED SKIN CHARLY. NO POTENTIAL PATHOGENS SEEN. Normal [facility] Comment on above: Performed By: #### U RCX #### [facility] [address] [address] [address] Reba Swain CBC W MANUAL DIFFon 12-22-19 22 ATYPICAL LYMPH # Normal [facility] Comment on above: Performed By: #### C BCNIKI #### [facility] [address] [place] [address] Dr. Reba Swain ATYPICAL LYMPH % Normal [facility] Comment on above: Performed By: #### C BCNIKI #### [facility] [address] [place] [address] Dr. Reba Swain BAND # Normal 0.0-0.3 [facility] Comment on above: Performed By: #### C BCNIKI #### [facility] [address] [place] [address] Dr. Reba Swain BAND % Normal 0-5 [facility] Comment on above: Performed By: #### C TRAMAINE #### [facility] [address] [place] [address] Dr. Reba Swain BASOM # 0.08 103/ul Normal 0.00-0.10 [facility] Comment on above: Performed By: #### C TRAMAINE #### [facility] [address] [place] [address] Dr. Reba Swain BASOM % 1.0 % Normal 0.2-2.0 [facility] Comment on above: Performed By: #### C TRAMAINE #### [facility] [address] [place] [address] Dr. Reba Swain BLAST # Normal [facility] Comment on above: Performed By: #### C TRAMAINE #### [facility] [address] [place] [address] Dr. Reba Swain BLAST % Normal [facility] Comment on above: Performed By: #### C TRAMAINE #### [facility] [address] [place] [address] Dr. Reba Swain CORRECTED WBC Normal 4.0-11.[address] [facility] Comment on above: Performed By: #### C TRAMAINE #### [facility] [address] [place] [address] Dr. Reba Swain EOS # 0.08 103/ul Normal 0.00-0.70 [facility] Comment on above: Performed By: #### C TRAMAINE #### [facility] [address] [address] [address] Reba Swain EOS% 1.0 % Normal 0.9-7.0 [facility] Comment on above: Performed By: #### C TRAMAINE #### [facility] [address] [place] [address] Dr. Reba Swain HCT 42.3 % Normal 36.0-48.0 [facility] Comment on above: Performed By: #### C TRAMAINE #### [facility] [address] [place] [address] Dr. Reba Swain HGB 14.0 g/dl Normal 12.0-16.0 [facility] Comment on above: Performed By: #### C TRAMAINE #### [facility] [address] [place] [address] Dr. Reba Swain LYMPHM # 0.83 103/ul Critically low 1.20-3.80 [place] Comment on above: Performed By: #### C TRAMAINE #### [facility] [address] [place] [address] Dr. Reba Swain LYMPHM% 10.0 % Critically low 20.5-60.0 [facility] Comment on above: Performed By: #### C TRAMAINE #### [facility] [address] [place] [address] Dr. Reba Swain MCH 30.6 pg Normal 26.7-34.0 [facility] Comment on above: Performed By: #### C TRAMAINE #### [facility] [address] [place] [address] Dr. Reba Swain MCHC 33.1 g/dl Normal 29.9-35.2 [facility] Comment on above: Performed By: #### C TRAMAINE #### [facility] [address] [place] [address] Dr. Reba Swain MCV 92.4 fL Normal 81.0-99.0 [facility] Comment on above: Performed By: #### C TRAMAINE #### [facility] [address] [place] [address] Dr. Reba Swain METAMYELOCYTE # Normal [facility] Comment on above: Performed By: #### C TRAMAINE #### [facility] [address] [address] [address] Reba Swain METAMYELOCYTE % Normal [place] Comment on above: Performed By: #### C TRAMAINE #### [facility] [address] [address] [address] Reba Swain MONOM# 0.25 103/ul Critically low 0.30-0.80 [place] Comment on above: Performed By: #### C TRAMAINE #### [facility] [address] [address] [address] Reba Swain MONOM% 3.0 % Normal 1.7-12.0 [facility] Comment on above: Performed By: #### C TRAMAINE #### [facility] [address] [place] [address] Dr. Reba Swain MPV 10.3 fL Normal 9.5-13.5 [facility] Comment on above: Performed By: #### C TRAMAINE #### [facility] [address] [place] [address] Dr. Reba Swain MYELOCYTE # Normal [facility] Comment on above: Performed By: #### C TRAMAINE #### [facility] [address] [place] [address] Dr. Reba Swain MYELOCYTE % Normal [facility] Comment on above: Performed By: #### C TRAMIANE #### [facility] [address] [place] [address] Dr. Reba Swain NRBC Normal [facility] Comment on above: Performed By: #### C TRAMAINE #### [facility] [address] [address] [address] Reba Swain PLT 190 103/ul Normal 150-450 [facility] Comment on above: Performed By: #### C TRAMAINE #### [facility] [address] [address] [address] Reba Swain RBC 4.58 106/ul Normal 4.20-5.40 [facility] Comment on above: Performed By: #### C TRAMAINE #### [facility] [address] [place], [place] [address] Dr. Reba Swain RDW 13.3 % Normal 11.0-15.0 [facility] Comment on above: Performed By: #### C TRAMAINE #### [facility] [address] [place], [place] [address] Dr. Reba Swain SEG # 7.06 103/ul Critically high 1.40-6.50 [facility] Comment on above: Performed By: #### C TRAMAINE #### [facility] [address] [place], [place] [address] Dr[address] Reba Swain SEG % 85.0 % Critically high 43.0-75.0 [facility] [place] [facility] Comment on above: Performed By: #### C TRAMAINE #### [facility] [address] [place], [place] [address] Dr. Reba Swain WBC 8.3 103/ul Normal 4.0-11.0 [facility] Comment on above: Performed By: #### Lexie REDD #### [facility] [address] [place], [place] [address] HEAD WO CONon [...] Date: 2021-12-21 19:59 Normal [facility] ER URINE PROFILEon 2 Bilirubin Ql (U) Negative Normal NEGATIVE [facility] Comment on above: Performed By: #### ESTEPHANIA HUTCHISON #### [facility] [address] [address] [address] Reba Swain Clarity (U) CLEAR Normal CLEAR [facility] Comment on above: Performed By: #### WESLEY HUTCHISONRO #### [facility] [address] [address] [address] Reba Swain Color (U) YELLOW Normal YELLOW [facility] Comment on above: Performed By: #### WESLEY HUTCHISONRO #### [facility] [address] [place] [address] Dr. Reba Swain ERUAHCherie A micrscopic examina tion will be performed if indicated. Normal [facility] Comment on above: Performed By: #### WESLEY HUTCHISONRO #### [facility] [address] [place] [address] Dr. Reba Swain Glucose Ql (U) Negative Normal NEGATIVE [facility] Comment on above: Performed By: #### WESLEY HUTCHISONRO #### [facility] [address] [place] [address] Dr. Reba Swain Hemoglobin Ql (U) Negative Normal NEGATIVE [facility] Comment on above: Performed By: #### WESLEY HUTCHISONRO #### [facility] [address] [place] [address] Dr. Reba Swain Ketones Ql (U) Negative Normal NEGATIVE [facility] Comment on above: Performed By: #### WESLEY HUTCHISONRO #### [facility] [address] [address] [address] Reba Swain LEUKOCYTES Negative Normal NEGATIVE [facility] Comment on above: Performed By: #### WESLEY HUTCHISONRO #### [facility] [address] [place] [address] Dr. Reba Swain Nitrite Ql (U) Negative Normal NEGATIVE [facility] Comment on above: Performed By: #### WESLEY HUTCHISONRO #### [facility] [address] [place] [address] Dr. Reba Swain pH (U) 7.0 [pH] Normal 5-9 [facility] Comment on above: Performed By: #### WESLEY HUTCHISONRO #### [facility] [address] [place] [address] Dr. Reba Swain Protein (U) [Mass/Vol] 100 mg/dL Abnormal NEGATIVE/ TRACE [facility] Comment on above: Performed By: #### Amy CONTRERAS UMICRO #### [facility] [address] [place] [address] Dr. Reba Swain SPEC GRAVITY 1.025 Normal 1.005-<=1.025 [facility] [place] [facility] Comment on above: Performed By: #### WESLEY HUTCHISONRO #### [facility] [address] [place] [address] Dr. Reba Swain UR MICRO IND INDICATED Normal [facility] Comment on above: Performed By: #### WESLEY HUTCHISONRO #### [facility] [address] [place] [address] Dr. Reba Swain Urobilinogen Qn (U) 0.2 {Tamia'U}/dL Normal 0.2 - 1. 0 [facility] Comment on above: Performed By: #### WESLEY HUTCHISONRO #### [facility] [address] [place] [address] Dr. Reba Swain PROF CHEM 8 (BAS METB)on Anion gap [Moles/Vol] 14.8 mmol/L Normal [facility] Comment on above: Performed By: #### B MP #### [facility] [address] [place] [address] Dr. Reba Swain Calcium [Mass/Vol] 8.5 mg/dL Normal 8.5-10.1 [facility] Comment on above: Performed By: #### B MP #### [facility] [address] [place] [address] Dr. Reba Swain Chloride [Moles/Vol] 100 mmol/L Normal 98-107 [facility] Comment on above: Performed By: #### B MP #### [facility] [address] [place] [address] Dr. Reba Swain CO2 [Moles/Vol] 23.7 mmol/L Normal 21.0-32.0 [facility] Comment on above: Performed By: #### B MP #### [facility] [address] [address] [address] Reba Swain Creatinine [Mass/Vol] 0.79 mg/dL Normal 0.55-1.02 [facility] Comment on above: Performed By: #### B MP #### [facility] [address] [address] [address] Reba Swain EGFR-AF BRITISH >60 Normal >=60 [facility] Comment on above: Performed By: #### B MP #### [facility] [address] [address] [address] Reba Swain EGFR-NON AF BRITISH >60 Normal >=60 [facility] Comment on above: Performed By: #### B MP #### [facility] [address] [address] [address] Reba Swain Glucose [Mass/Vol] 107 mg/dL Critically high 74-[address] [facility] Comment on above: Performed By: #### B MP #### [facility] [address] [address] [address] Reba Swain Potassium [Moles/Vol] 3.5 mmol/L Normal 3.5-5.1 [facility] Comment on above: Performed By: #### B MP #### [facility] [address] [address] [address] Reba Swain Sodium [Moles/Vol] 135 mmol/L Critically low 136-145 Th [facility] Comment on above: Performed By: #### B MP #### [facility] [address] [address] [address] Reba Swain Urea nitrogen [Mass/Vol] 9.0 mg/dL Normal 7.0-18.0 [facility] Comment on above: Performed By: #### B MP #### [facility] [address] [place] [address] Dr. Reba Swain Urea nitrogen/Creatinine [Mass ratio] 11.4 mg/mg Normal [facility] Comment on above: Performed By: #### B MP #### [facility] [address] [place] [address] Dr. Reba Swain TROPONIN, HIGH SENSITIVITYon 12-21-2021 HSTROP 4.3 pg/mL Normal 4.0-51.3 [facility] Comment on above: Result Comment: CUT- OFF POINTS HAVE BEEN ESTABLISHED BASED ON THE FOURTH UNIVERSAL DEFINITIONS OF MYOCARDIAL INFARCTION. THE UPPER REFERENCE LIMIT (URL) OF TROPONIN, DEFINED THE 99TH PERCENTILE OF cTnI DISTRIBUTION IN A REFERENCE POPULATION, HAS BEEN CONFIRMED THE DECISION THRESHOLD FOR NE DIAGNOSIS. Performed By: #### H STROPN #### [facility] [address] [place] [address] Dr. Reba Swain URINE MICROSCOPIC ONLYon BACTERIA SMALL Abnormal NONE SEEN [facility] Comment on above: Performed By: #### E BESTR, UMICRO #### [facility] [address] [place] [address] Dr. Reba Swain Bacteria identified Cx Nom (U) INDICATED Normal [facility] Comment on above: Performed By: #### E RUR, UMICRO #### [facility] [address] [place] [address] Dr. Reba Swain CAST SEEN Abnormal NONE SEEN [facility] Comment on above: Performed By: #### E RUR, UMICRO #### [facility] [address] [place] [address] Dr. Reba Swain Crystals LM Nom (Urine sed) NONE SEEN Normal NONE SEEN [facility] Comment on above: Performed By: #### E RUR, UMICRO #### [facility] [address] [place] [address] Dr. Reba Swain Epithelial cells LM Ql (Urine sed) FEW Abnormal NONE SEEN /RARE [facility] Comment on above: Performed By: #### E RUR, UMICRO #### [facility] [address] [place] [address] Dr. Reba Swain MUCOUS TRACE Abnormal NONE SEEN [facility] Comment on above: Performed By: #### E RUR, UMICRO #### [facility] [address] [address] [address] Reba Swain RBC 0-2 Normal 0-2 [facility] Comment on above: Performed By: #### ESTEPHANIA HUTCHISON #### [facility] [address] [address] [address] Reba Swain WBC 2-5 Abnormal NONE SEEN [facility] Comment on above: Performed By: #### E ESTEPHANIA CONTRERAS #### [facility] [address] [address] [address] Reba Swain XR lumbar spine min 4V*on XR lumbar spine min 4V* [facility] [place] [address] [place] [address] XRay Report Signed Patient: Silver Andujar MR#: [id number] : 1985 Acct:[id number] Age/Sex: 35 / F ADM Date: 01/14/21 Loc: [place] Room: Type: [facility] Attending Dr: Madonna Torrez NP Ordering Provider: [...] Sweeney Jr., M.D.01/14/2021 6:46 PM Dictation Location: [address] [address] Transcribed By: [facility] 01/14/211845 Dictated By: Henrry Sweeney Jr, MD 01/14/211840 Signed By: 01/14/21 1846 [facility] [id number] 02-16-2020 SARS-CoV-2 Not Detected Normal Not Detected [facility] Comment on above: Result Comment: (NOT E) Testing was performed using the Aptima SARS-CoV-2 assay. This test was developed and its performance characteristics determined by [employer]. This test has not been FDA cleared [...] detected) result in this assay. Performed At: [address] [place] [id number] Macy Ortega MD Ph:[phone] Performed By: #### A COV #### [facility] [address] [place] [address] Human Projectile: Bronson Webster MD Vital Signs Date Time Vital Sign Value Performing Clinician Facility 07-15-2023 13:44-0500 Body temperature 98.01 [degF] Priscilla Albert APRN.CNP Work Phone: [facility] 07-15-2023 13:44-0500 Diastolic blood pressure 81 mm[Hg] Priscilla Albert APRN.CNP Work Phone: [facility] 07-15-2023 13:44-0500 Heart rate 89 /min Priscilla Albert APRN.CNP Work Phone: [facility] 07-15-2023 13:44-0500 Systolic blood pressure 131 mm[Hg] Priscilla Albert SUPERVISOR HOME ENERGY CONSULTANT Work Phone: [facility] 12-29-2019 05:16-0400 BMI (Body Mass Index) 37.24 kg/m2 Raheel Kaminski [place], [place] 12-29-2019 05:16-0400 Body Temperature 97.3 [degF] Raheel [place], [place] 12-29-2019 05:16-0400 Body weight 121.11 kg Raheel [place] 12-29-2019 05:16-0400 BP Diastolic 65 mm[Hg] [place], [place] 12-29-2019 05:16-0400 BP Systolic 114 mm[Hg] [place] 12-29-2019 05:16-0400 Height 180.3 cm [place], [place] 12-29-2019 05:16-0400 Pulse (Heart Rate) 60 /min [place]el [place] 12-29-2019 05:16-0400 Pulse Oximetry 97 % [place], [place] 12-29-2019 05:16-0400 Respiratory Rate 18 /min Raheel [place] Encounters Encounter Date Encounter Type Care Provider Facility Start: 06-25-2024 End: 06-25-2024 ambulatory Rony Daniels MD Facility: [place] Start: 05-28-2024 End: 05-28-2024 ambulatory Rony Daniels MD Facility: [place] Start: 04-30-2024 End: 04-30-2024 ambulatory Rony Daniels MD Facility: [place] Start: 03-26-2024 End: 03-26-2024 ambulatory Rony Daniels MD Facility: [place] Start: 03-12-2024 End: 03-12-2024 ambulatory Rony Daniels MD Facility: [place] Start: 08-22-2023 End: 08-22-2023 ambulatory Rony Daniels MD Facility:[facility] [place] Start: 08-01-2023 End: 08-01-2023 ambulatory Rony Daniles MD Facility:[facility] [place] Start: 07-21-2023 End: 07-22-2023 ambulatory Laurel ALEXANDER Facility:[facility] Start: 07-18-2023 End: 07-18-2023 ambulatory Rony Daniels MD Facility:[facility] [place] Start: 07-15-2023 End: 07-15-2023 ambulatory HENRRY VARGAS Facility:[facility] Start: 07-15-2023 End: 07-15-2023 Patient encounter procedure Priscilla Albert APRN.CNP Work Phone: [facility] Comment on above: Primary hypertension (Primary Dx) Start: 08-26-2022 End: 08-26-2022 Emergency department patient visit CARISSA Crespo [facility] Start: 06-28-2022 End: 06-28-2022 ambulatory MARIE HENRY Facility:[facility] Start: 12-21-2021 End: 12-21-2021 ambulatory MARIE HENRY Facility:[facility] Start: 12-11-2021 ambulatory MARIE HENRY Facility: [facility] Start: 09-27-2021 End: 09-27-2021 ambulatory JOSHUA BAILEY Facility:[facility] Start: 08-11-2021 End: 08-11-[address] MARJAN HAILE Facility:[facility] Start: 09-22-2020 End: 09-22-2020 Patient encounter procedure Jaz Iglesias Work Phone: [facility] Start: 08-25-2020 End: 08-25-2020 Patient encounter procedure Jean-Claude [facility] Start: 02-12-2020 End: 02-13-2020 Patient encounter procedure BESSIE MOSES [facility] Start: 02-12-2020 End: 02-12-2020 Subsequent hospital visit by physician ARIADNA Kerr Start: 12-29-2019 End: 12-29-2019 Emergency department patient visit RAHEEL JACKSON [facility] Start: 12-29-2019 End: 12-29-2019 Emergency department patient visit Raheel Jackson Work Phone: [facility] ED Comment on above: Exposure to needle, initial encounter (Primary Dx) Procedures Date Procedure Procedure Detail Performing Clinician Start: 08-26[facility]2022 [facility] CARISSA BRADFORD Start: 08-26-2022 APPLY DEAN WRAP CARISSA Ji SHALONDA Start: 08-26-2022 Radiologic examinati on knee 3 views CARISSA BRADFORD Start: 08-26-2022 Dup-scan xtr veins unilateral/limited study CARISSA BRADFORD Start: 02-12-2020 COVID-19 AMBULATORY KARENA JACKSON Plan of Treatment Date Care Activity Detail Author Start: 08-17-2026 Tetanus vaccination Tetanus: Every 1 0yrs [facility] Start: 08-17-2026 Urine microalbumin profile DTaP,Tdap,Td Vaccine (2 - Td or Tdap) [facility] Start: 04-15-2023 Covid-19 Vaccine ( season) Covid-19 Vaccine ( season) [facility] Start: 04-15-2023 Influenza vaccination Influenza Vacc ine (#1) [facility] Start: 08-15-2022 Depression Assessment Depression Ass essment [facility] Start: 09-22-2020 COVID-19 Vaccine (Moderna) (#2) COVID-19 Vaccine (Moderna) (#2) [facility] Start: 09-22-2020 End: 09-22-2020 Immunization 09/22/2020 Immunization Primary Care Jaz Iglesias MD [facility] [address] [place] [address] [phone] [facility] [employer] [facility] Start: 04-15-2020 Influenza vaccination [facility] [place] Start: 04-15-2020 Influenza vaccinatio n given Sequential Influenza Vaccine (#1) [facility] Start: 2013 HPV Testing HPV Testing [facility] Start: 2004 Pap Testing Pap Testing [facility] Start: 2001 Hepatitis C antibody , confirmatory test Hepatitis C Screening [facility] Start: 2001 Hepatitis C Screening Hepatitis C Sc dedra [facility] Start: 2001 HIV Screening HIV Screening [facility] Start: 1998 HIV screening HIV Screening [facility] Start: 1995 Adolescent depressio n screening assessment Depression Screening (PHQ9) [facility] Start: 1989 Pneumococcal vaccination Pneumococcal Vaccine (1 - PCV) [facility] Start: 1986 History and physical examination, annual for health maintenance Wellness Visit [facility] Start: 1983 Creatinine measurement Creatinine mo nitoring [place], [place] Start: 1983 Hepatitis B Vaccine (1 of 3 - 3-dose series) Hepatitis B Vaccine (1 of 3 - 3-dose series) [facility] Start: 1983 Potassium monitoring Potassium monit oring [place], [place] Start: 1983 Screening for malign ant neoplasm of cervix Pap Smear [facility] Start: 1983 Tetanus vaccination Tetanus: Every 1 0yrs [facility] End: 02-12-2020 Covid-19 Ambulatory Covid-19 Ambulatory Lab Routine Once for 1 Occurrences starting 02/12/2020 until 02/12/2020 [place] Comment on above: Once for 1 Occurrenc es starting 02/12/2020 until 02/12/2020 Covid-19 Ambulatory Covid-19 Amb ulatory Lab Routine 02/12/2020 7:08 AM EDT [place] Immunizations Immunization Date Immunization Notes Care Provider Olamide chapa 06-04-2022 influenza virus vacc ine, unspecified formulation Priscilla Albert APRN.SUPERVISOR HOME ENERGY CONSULTANT Work Phone: [facility] 09-22-2020 Moderna SARS-CoV-2 Vaccination Lizbeth Hakan [facility] 08-25-2020 Moderna SARS-CoV-2 Vaccination Jean-Claude Redmond [facility] Payers Date Payer Category Payer Unknown [id number] 2019 Unknown 1985 Unknown [id number] 2.16.8 [id number] 1985 Unknown [id number] 2.16.84 [id number] 1983 Unknown [id number] 2.16.84 0.1.785452.3.579.2.593 1983 Unknown [id number] 2.16.84 0.1.851325.3.579.2.593 1983 Unknown [id number] 2.16.84 0.1.102439.3.579.2.593 1983 Unknown [id number] 2.16.84 0.1.917433.3.579.2.593 1983 Unknown [id number] 2.16. 840.1.871677.3.579.2.196 1983 Unknown [id number] 2.16. 840.1.477723.3.579.2.196 1983 Unknown [id number] 2.16. 840.1.361289.3.579.2.196 1983 Unknown [id number] 2.16. 840.1.080282.3.579.2.196 1983 Unknown [id number] 2.16. 840.1.197721.3.579.2.196 1983 Unknown [id number] 2.16. 840.1.046001.3.579.2.196 1983 Unknown [id number] 2.16. 840.1.150320.3.579.2.196 1983 Unknown [id number] 2.16. 840.1.336262.3.579.2.196 1983 Unknown [id number] 2.16. 840.1.355631.3.579.2.196 1961 Self-pay [id number] Self-pay Social History Date Type Detail Facility Start: 12-29-2019 End: 07-15-2023 Tobacco smoking status CAIS Current every day smoker [facility] Start: 12-29-2019 End: 07-15-2023 Cigarettes smoked current (pack per day) - Reported [place], [place] Start: 12-29-2019 Alcohol intake Lifetime non-d giovanny (finding) [place] Start: 12-29-2019 History SDOH Alcohol Frequency 1 [place], [place] Start: 1985 Sex Assigned At Not on file Ara miller [place], [place] Exposure to SARS-CoV -2 (event) Unable to assess Yamilex [place] Exposure to SARS-CoV -2 (event) Not sure [facility] History of tobacco use Cigarette Smoker [facility] Start: 07-15-2023 Tobacco use and exposure User of smokeless tobacco [facility] Start: 07-15-2023 Tobacco use panel [facility] Progress note 07-15-2023 Note Date & Type Note Facility 07-15-2023 Note HNO ID: [id number] Author: Priscilla Albert APRN.SUPERVISOR HOME ENERGY CONSULTANT Service: ? Author Type: Nurse Practitioner Type: Progress Notes Filed: 07/15/2023 4:34 PM Note Text: CC: Headache and high BP HPI: Silver Andujar is a 37 year old female who presents to the [facility] walk in clinic for the above [...] seek emergency care Gayatri Tony, MSN, RN-BC PAROLE SUPERVISOR Student Gayatri Tony, student nurse practitioner, and myself have interviewed the patient. I re-performed the HPI and physical exam. Assessment and plan was developed together. I spent a total of 30 minutes on the date of the service which included preparing to see the patient, [id number] patient care, completing clinical documentation, obtaining and/or reviewing separately obtained history, performing a medically appropriate examination, counseling and educating the patient/family/caregiver, and ordering medications, tests, or procedures. Priscilla Albert APRN.[facility] History of Present illness Narrative 07-15-2023 Priscilla Albert APRN.SUPERVISOR HOME ENERGY CONSULTANT - 07/15/2023 1:49 PM EST Note [...] seek emergency care Gayatri Tony, MSN, RN-BC PAROLE SUPERVISOR Student Gayatri Tony, student nurse practitioner, and myself have interviewed the patient. I re-performed the HPI and physical exam. Assessment and plan was developed together. I spent a total of 30 minutes on the date of the service which included preparing to see the patient, [id number] patient care, completing clinical documentation, obtaining and/or reviewing separately obtained history, performing a medically appropriate examination, counseling and educating the patient/family/caregiver, and ordering medications, tests, or procedures. Priscilla Albert APRN.PABLO documented in this encounter [facility] Clinical Note 09-27-2021 Note Date [...] authenticated by: RICARDO WEBB Date: 2021-09-27 13:13 [facility] Evaluation note Note Date & Type Note Facility Evaluation note Diagnosis Primary hypertension- Primary Unspecified essential hypertension documented in this encounter [facility] Discharge Instructions * Instructions* Crystal Little MD - 12/29/2019 Thank you for visiting [facility] Emergency Department. You need to call No primary care provider on file. to make an appointment as directed for follow up. Should you have any questions regarding your care or further treatment, please call [facility] Emergency Department at [phone]. 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 Documents on File Type Date Recorded Patient Mustanger Expl anation Advance Directives and Living Will [...] section and content) DATE CREATED AUTHOR 03/06/2020 [facility] DATE CREATED AUTHOR AUTHOR'S ORGANIZ ATION 01/30/2021 [facility] DATE CREATED AUTHOR AUTHOR'S ORGANIZ ATION 06/30/2022 [facility] DATE CREATED AUTHOR AUTHOR'S ORGANIZ ATION 08/26/2022 [facility] DATE CREATED AUTHOR AUTHOR'S ORGANIZ ATION 07/18/2023 [facility] DATE CREATED AUTHOR AUTHOR'S ORGANIZ ATION 07/23/2023 [facility] DATE CREATED AUTHOR AUTHOR'S ORGANIZ ATION 07/03/2024 [facility] Source Comments (unrecognize d section and content) In the event this informatio n is protected by the Federal Confidentiality of Alcohol and Drug Abuse Patient Records regulations: The Federal rules restrict any use of the information to criminally investigate or prosecute any alcohol or drug abuse patient.[facility] Care Teams (unrecognized sec tion and content) Trapper Animal 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 [facility]. provides no warranty or guarantee of the accuracy or completeness of information in this document.
--- NOTE | 2024-08-07 14:53 | CT_ITS ---
The [address] [address] Patient Name: SILVER ANDUJAR MRN: [id number] date: 1985 Sex: F Assigned Patient Location: ER Current Patient Location: ER Accession/Order Number: [id number] Exam Date: 08/07/2024 11:51 Report Date: 08/07/2024 15:35 At the request of: ARMAND CARUSO Procedure: CT head/brain wo con EXAM: CT head/brain wo con HISTORY: Headache COMPARISON: 12/21/2021 TECHNIQUE: Multiple thin computed tomograms of the head were obtained, with sagittal and coronal reconstructions. Radiation reduction technique and algorithms were utilized during the study. FINDINGS: The ventricles are not enlarged, the lateral ventricles are mildly asymmetric but within normal variation, and the third ventricles in the midline. The sylvian fissures and cortical sulci are unremarkable. There is no evidence of an intracranial hemorrhage, mass lesion or apparent acute infarct. No focal abnormality is identified in the deep white matter. Frontal hyperostosis is noted with a small amount of calcification the falx. The cerebellum and visualized brainstem are intact. The visualized paranasal sinuses are clear. The middle ears are aerated. The mastoid sinuses are clear. There is no apparent acute skull fracture. CT/CT head/brain wo con IMPRESSION: There is no evidence of an intracranial hemorrhage, mass lesion or apparent acute infarct. The paranasal sinuses are clear as visualized. There is no apparent acute skull fracture. The overall appearance is essentially unchanged since 12/21/2021. Electronically authenticated by: ILANA RESENDIZ Date: 08/07/2024 15:35
--- NOTE | 2024-08-07 14:56 | ED_ITS ---
HPI HPI - General Adult General Chief complaint: Headache Stated complaint: MIGRAINE Time Seen by Provider: 08/07/24 14:42 Source: patient Mode of arrival: walk-in Limitations: no limitations History of Present Illness HPI narrative: Patient is a 38-year-old female with a history of chronic pain in the spine who presents to the ER for a migraine that began today. She states this headache is different from her typical migraines because it is located globally over the entire head where her typical migraines are typically localized to 1 side or the other. She states she gets several headaches a year that are more severe. She denies fevers, vomiting. She has had significant nausea today. She took her Topamax prophylactically and her triptan prior to arrival without improvement. She is not concerned for . She denies any falls or injuries. She has not had any peripheral paresthesias. Related Data Home Medications ?Medication ?Instructions ?Recorded ?Confirmed hydrochlorothiazide 25 mg tablet 25 mg PO DAILY 06/16/23 07/26/24 lisinopril 20 mg tablet 20 mg PO DAILY 06/16/23 07/26/24 metoprolol succinate 25 mg 25 mg PO DAILY 06/16/23 07/26/24 tablet,extended release 24 hr biotin 10,000 mcg capsule 10,000 mcg PO DAILY 07/18/23 07/26/24 topiramate 50 mg tablet (Topamax) 50 mg PO BID 08/22/23 07/26/24 hydroxyzine HCl 25 mg tablet 25 mg PO TID PRN anxiety 04/04/24 07/26/24 phentermine 37.5 mg tablet 37.5 mg PO DAILY 05/28/24 07/26/24 (Adipex-P) bupropion HCl 150 mg 24 hr tablet, 150 mg PO DAILY 06/25/24 07/26/24 extended release (Wellbutrin XL) escitalopram oxalate 10 mg tablet 10 mg PO DAILY 06/25/24 07/26/24 (Lexapro) gabapentin 600 mg tablet 300 mg PO BID 07/26/24 07/26/24 Previous Rx's ?Medication ?Instructions ?Recorded acetaminophen 300 mg-codeine 30 mg 1 tab PO BID PRN pain #45 tabs 03/28/24 tablet baclofen 10 mg tablet See Rx Instructions .Route 06/05/24 .COMPLEX #60 tabs meloxicam 15 mg tablet 15 mg PO DAILY #30 tabs 06/05/24 ondansetron 4 mg disintegrating 4 mg PO Q6H PRN nausea and 08/07/24 tablet vomiting #12 tabs Allergies Allergy/AdvReac Type Severity Reaction Status Date / Time buspirone (From BuSpar) Allergy Severe Migraine Verified 08/07/24 14:48 sulfamethoxazole (From Allergy Severe Anaphylaxis Verified 08/07/24 14:48 Bactrim) trimethoprim (From Bactrim) Allergy Severe Anaphylaxis Verified 08/07/24 14:48 venlafaxine (From Effexor) Allergy Severe syncope Verified 08/07/24 14:48 oxycodone (From Percocet) AdvReac Severe Anxiety Verified 08/07/24 14:48 Opioid HPI Opioid Management Most Recent Opioid Data: Last Pain Scale 10 08/07/24 16:39 08/07/24 Last MAR Pain Assessment 08/07/24 16:39 Review of Systems ROS Constitutional Denies: fever or chills Eyes Denies: change in vision Ears, nose, mouth, and throat Denies: throat pain Cardiovascular Denies: chest pain Respiratory Denies: shortness of breath or cough Gastrointestinal Reports: nausea; Denies: vomiting Musculoskeletal Denies: back pain or neck pain Integumentary/Breast Denies: rash Neurological Reports: headache; Denies: numbness in extremities or weakness in extremities Hematologic/Lymphatic Denies: easy bruising or easy bleeding PFSH PFSH Medical History (Updated 08/07/24 @ 17:07 by CATHREINE Chapa) Osteoarthritis ?M19.90 - Unspecified osteoarthritis, unspecified site (ICD-10) Acid reflux ?K21.9 - Gastro-esophageal reflux disease without esophagitis (ICD-10) Sleep apnea ?G47.30 - Sleep apnea, unspecified (ICD-10) HTN (hypertension) ?I10 - Essential (primary) hypertension (ICD-10) Surgical History Hx of cholecystectomy ?Z90.49 - Acquired absence of other specified parts of digestive tract (ICD- 10) H/O section ?Z98.891 - History of uterine scar from previous surgery (ICD-10) History of hysterectomy ?Z90.710 - Acquired absence of both cervix and uterus (ICD-10) Social History Smoking status: Current every day smoker Little interest or pleasure in doing things: not at all Feeling down, depressed, or hopeless: not at all Exam Narrative Exam Narrative: Gen.: Awake, alert, in no distress Head: Normocephalic, atraumatic ENT: Moist mucous membranes, photophobic, no nuchal rigidity or meningismus Respiratory: No respiratory distress Extremities: Moves extremities equally Psych: Normal mood and affect Neuro: No focal neuro deficit, clear speech, 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 No facial drooping Skin: Warm, dry, intact Constitutional Vital Signs, click to edit/add: Last Vital Signs Temp 97.9 F 08/07/24 14:44 Pulse 65 08/07/24 16:45 Resp 18 08/07/24 16:45 BP 109/54 08/07/24 16:45 Pulse Ox 98 08/07/24 16:45 O2 Del Method Room Air 08/07/24 14:44 Course Vital Signs Vital signs: Vital Signs Temperature 97.9 F 08/07/24 14:44 Pulse Rate 81 08/07/24 14:44 Respiratory Rate 16 08/07/24 14:44 Blood Pressure 126/62 08/07/24 14:44 Pulse Oximetry 99 08/07/24 14:44 Oxygen Delivery Method Room Air 08/07/24 14:44 Temperature 97.9 F 08/07/24 14:44 Pulse Rate 65 08/07/24 16:45 Respiratory Rate 18 08/07/24 16:45 Blood Pressure 109/54 08/07/24 16:45 Pulse Oximetry 98 08/07/24 16:45 Oxygen Delivery Method Room Air 08/07/24 14:44 Medical Decision Making MDM Narrative Medical decision making narrative: Patient initially medicated with IV fluids, Reglan, Benadryl, Decadron with improvement of nausea. CT of the brain is unremarkable and she was remedicated with Toradol and Norflex. Pain is 1/10 and patient is eager for discharge home. Follow-up with PCP and return to the ER if symptoms change or worsen SUPERVISED APC VISIT, PHYSICIAN ATTESTATION: Based on the medical record the care appears appropriate. ? Medical Records Medical records reviewed: Yes I reviewed the patient's medical records Imaging Data CT scan - head: Attestation: I have reviewed the pertinent imaging results. Radiologist's impression: ITS Impressions Head CT 08/07/24 14:53 IMPRESSION: There is no evidence of an intracranial hemorrhage, mass lesion or apparent acute infarct. The paranasal sinuses are clear as visualized. There is no apparent acute skull fracture. The overall appearance is essentially unchanged since 12/21/2021. Electronically authenticated by: ILANA RESENDIZ Date: 08/07/2024 15:35 Discharge Plan Discharge Chief Complaint: Headache Clinical Impression: Headache Patient Disposition: Home, Self-Care Time of Disposition Decision: 17:07 Condition: Good Prescriptions / Home Meds: New ondansetron 4 mg tablet,disintegrating 4 mg PO Q6H PRN (Reason: nausea and vomiting) Qty: 12 0RF No Action lisinopril 20 mg tablet 20 mg PO DAILY hydrochlorothiazide 25 mg tablet 25 mg PO DAILY metoprolol succinate 25 mg tablet extended release 24 hr 25 mg PO DAILY topiramate [Topamax] 50 mg tablet 50 mg PO BID hydroxyzine HCl 25 mg tablet 25 mg PO TID PRN (Reason: anxiety) baclofen 10 mg tablet See Rx Instructions .ROUTE .COMPLEX Qty: 60 2RF Rx Instructions: 1-2 tabs daily meloxicam 15 mg tablet 15 mg PO DAILY Qty: 30 2RF bupropion HCl [Wellbutrin XL] 150 mg tablet extended release 24 hr 150 mg PO DAILY escitalopram oxalate [Lexapro] 10 mg tablet 10 mg PO DAILY gabapentin 600 mg tablet 300 mg PO BID biotin 10,000 mcg capsule 10,000 mcg PO DAILY acetaminophen-codeine 300-30 mg tablet 1 tab PO BID PRN (Reason: pain) Qty: 45 0RF Rx Instructions: 1 tab po bid #45 phentermine [Adipex-P] 37.5 mg tablet 37.5 mg PO DAILY Rx Instructions: must administer 30 minutes before or 1-2 hours after breakfast Print Language: Macedonian Instructions: Acute Headache (ED) Referrals: MARIE HENRY [Primary Care Provider] - 1 week
[2024-08-07] MEDS: DIPHENHYDRAMINE HCL 50 MG/ML VIAL 25 MG IV (15:18)
[2024-08-07] MEDS: DEXAMETHASONE SOD PHOS 10 MG/ML VIAL IV (15:18)
[2024-08-07] MEDS: METOCLOPRAMIDE HCL 10 MG/2 ML VIAL IVP (15:18)
[2024-08-07] MEDS: ORPHENADRINE 60 MG/ 2 ML VIAL IV (16:39)
[2024-08-07] MEDS: KETOROLAC TROMETHAMINE 30 MG/ML VIAL IVP (16:39)
[2024-08-07 16:45] VITALS: BP 109/54; PULSE 65; O2SAT 98
== END 2024-08-07 17:16 | disposition home or self-care (01) ==
PROVIDERS: Emergency Provider Emergency Medicine Emergency Medical Services; PCP Nurse Practitioner Family
DX: R51.9 Headache, unspecified (principal); Z90.49 Acquired absence of other specified parts of digestive tract; Z90.710 Acquired absence of both cervix and uterus; F17.200 Nicotine dependence, unspecified, uncomplicated
CPT/HCPCS: 70450; 96374; 96375; 99285; J1100; J1200; J1885; J2360; J2765

== ENCOUNTER 2024-10-01 13:25 | Outpatient (OUT) | payer OTHER, SELFPAY ==
--- OUTSIDE RECORDS SUMMARY | 2024-10-01 13:42 | XMS_ITS | CCD ---
Author Organization [facility] Informat ion Partnership [facility] Care Team Providers Care Matrix Plater Name Role Phone Unavailable Primary Care Provider [...] Care Provider HENRRY VARGAS Primary Care Unavailab bobby Daniels MD, Andrius Clifford Attending Unavailable Giashleyitis , Andrius Venessa Attending Unavailable Frances BARROW, Andrius Venessa Attending Unavailable Frances BARROW, Andrius Venessa Attending Unavailable Frances BARROW, Andrius Vytsharda Attending Unavailable Frances BARROW, Andrius Vytsharda Attending Unavailable Frances BARROW, Andrius Vytsharda Attending Unavailable Gironal BARROW, Royn Clifford Attending Unavailable Frances BARROW, Rony Clifford Attending Unavailable Laurel ALEXANDER Attending Unavailable Allergies Allergy Classification Reported Allergen(s) Allergy Type Date of Onset Reaction(s) Facility (3 sources) Acetaminophen / oxyCODONE Drug Allergy 04-21-20 18 Itching [place], [place] (3 sources) busPIRone Drug Allergy 04-21-20 18 Other: See Comments [place] (3 sources) Sulfamethoxazole / Trimethoprim Drug Allergy 04-21-20 18 Anaphylaxis [place] (2 sources) Acetaminophen / oxyCODONE; 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: [Percocet] Drug Allergy 08-15-19 15 [facility] (2 sources) Adhesive agent Drug allergy (disorder) 11-28-19 15 [facility] (3 sources) busPIRone; 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: [BuSpar] Drug Allergy 08-07-20 16 [facility] (2 sources) Latex; 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: [Latex] Drug allergy (disorder) [facility] (1 source) Sulfamethoxazole / Trimethoprim Drug Allergy [facility] (1 source) venlafaxine Drug Allergy [facility] (1 source) Adhesive bandage; 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: [Adhesive Bandage] Propensity to adverse reactions (disorder) [facility] Repository (1 source) Sulfamethoxazole / Trimethoprim; 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: [Bactrim] Drug Allergy [facility] Repository Medications Current Medications Medication Drug Class(es) [...] 06-30-2022 Chronic Other aftercare (1 source) 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 07-15-2023 CNOV Office Visit (WALKMN ) -------- SLIVER ANDUJAR ([id number]) 1985 F Date Time Provider Department 07/15/23 1:45 PM PRISCILLA ALBERT WALKCT During your visit today, we recorded the following information about you: Temperature Pulse Blood pressure 98 degrees 89/minute 131/81 Priscilla Albert APRN.VICE PRESIDENT QUALITY 07/15/2023 4:34 PM Signed CC: Headache and [...] seek emergency care Gayatri Tony, MSN, RN-BC GLUE SIZE MACHINE OPERATOR Student Gayatri Tony, student nurse practitioner, and myself have interviewed the patient. I re-performed the HPI and physical exam. Assessment and plan was developed together. I spent a total of 30 minutes on the date of the service which included preparing to see the patient, [id number] patient care, completing clinical documentation, obtaining and/or reviewing separately obtained history, performing a medically appropriate examination, counseling and educating the patient/family/caregiver , and ordering medications, tests, or procedures. Priscilla Albert APRN.VICE PRESIDENT QUALITY Referring Provider: SELF [[id number]] Allergies As of Date: 07/15/2023 Noted Allergy Reaction BUSPIRONE 04/21/2018 14 - Other: See Comments OXYCODONE-ACETAMINOPHEN 04/21/2018 9 - Itching SULFAMETHOXAZOLE-TRIMETH OPRIM 04/21/2018 10 - Anaphylaxis Date Reviewed: 07/15/2023 Reviewed by: Priscilla Albert APRN.VICE PRESIDENT QUALITY - Fully Assessed Reason for Visit: Headache [...] Status:Closed by PRISCILLA ALBERT on 07/15/23 Normal [facility] US DUP LOWER EXTREMITY RIGHT VENon [...] Henrry Sweeney MD 08/26/22 Final result Normal [facility] Comment on above: Order Comment: Reaso [...] Henrry Sweeney MD 08/26/22 Final result Normal [facility] Comment on above: Order Comment: Reaso n for exam:->pain XR LSPINE 2_3 VIEWSon 2021 XR LSPINE 2_3 VIEWS EXAMINATION: XR LSPINE 2_3 VIEWS HISTORY: Low back pain COMPARISON: No relevant comparison available. FINDINGS: BONES: No acute fracture or dislocation. Mild degenerative spondylosis and facet osteoarthropathy DISC SPACES: Normal. No significant disc height narrowing, subluxation, or endplate abnormality. PARASPINOUS: Negative. No paraspinous abnormality is seen. OTHER: Negative. IMPRESSION: Mild degenerative changes Electronically authenticated by: RICARDO WEBB Date: 2022-06-28 14:32 Normal [facility] CULTURE URINEon 12-22-2021 CULTURE URINE Culture Observations : MODERATE GROWTH OF MIXED SKIN CHARLY. NO POTENTIAL PATHOGENS SEEN. Normal [facility] Comment on above: Performed By: #### U RCX #### [facility] [address] [place] [address] Dr. Reba Swain CBC W MANUAL DIFFon 12-22-19 22 ATYPICAL LYMPH # Normal [facility] Comment on above: Performed By: #### C BCMAN #### [facility] [address] [address] [address] Reba Swain ATYPICAL LYMPH % Normal [facility] Comment on above: Performed By: #### C BCMAN #### [facility] [address] [place] [address] Dr. Reba Swain BAND # Normal 0.0-0.3 [facility] Comment on above: Performed By: #### C BCMAN #### [facility] [address] [address] [address] Reba Swain BAND % Normal 0-5 [facility] Comment on above: Performed By: #### C BCMAN #### [facility] [address] [place] [address] Dr. Reba Swain BASOM # 0.08 103/ul Normal 0.00-0.10 [facility] Comment on above: Performed By: #### C BCMAN #### [facility] [address] [place] [address] Dr. Reba Swain BASOM % 1.0 % Normal 0.2-2.0 [facility] Comment on above: Performed By: #### C BCNIKI #### [facility] [address] [place] [address] Dr. Reba Swain BLAST # Normal [facility] Comment on above: Performed By: #### C TRAMAINE #### [facility] [address] [place] [address] Dr. Reba Swain BLAST % Normal [facility] Comment on above: Performed By: #### C BCNIKI #### [facility] [address] [place] [address] Dr. Reba Swain CORRECTED WBC Normal 4.0-11.0 The [facility] Comment on above: Performed By: #### C BCNIKI #### [facility] [address] [place] [address] Dr. Reba Swain EOS # 0.08 103/ul Normal 0.00-0.70 [facility] Comment on above: Performed By: #### C BCNIKI #### [facility] [address] [place] [address] Dr. Reba Swain EOS% 1.0 % Normal 0.9-7.0 [facility] Comment on above: Performed By: #### C BCMAN #### [facility] [address] [place] [address] Dr. Reba Swain HCT 42.3 % Normal 36.0-48.0 [facility] Comment on above: Performed By: #### C TRAMAINE #### [facility] [address] [place] [address] Dr. Reba Swain HGB 14.0 g/dl Normal 12.0-16.0 [facility] Comment on above: Performed By: #### C TRAMAINE #### [facility] [address] [place] [address] Dr. Reba Swain LYMPHM # 0.83 103/ul Critically low 1.20-3.80 [facility] Comment on above: Performed By: #### C TRAMAINE #### [facility] [address] [place] [address] Dr. Reba Swain LYMPHM% 10.0 % Critically low 20.5-60.0 [facility] Comment on above: Performed By: #### Lexie REDD #### [facility] [address] [place] [address] Dr. Reba Swain MCH 30.6 pg Normal 26.7-34.0 [facility] Comment on above: Performed By: #### Lexie REDD #### [facility] [address] [place] [address] Dr. Reba Swain MCHC 33.1 g/dl Normal 29.9-35.2 [facility] Comment on above: Performed By: #### Lexie REDD #### [facility] [address] [place] [address] Dr. Reba Swain MCV 92.4 fL Normal 81.0-99.0 [facility] Comment on above: Performed By: #### Lexie REDD #### [facility] [address] [place] [address] Dr. Reba Swain METAMYELOCYTE # Normal [facility] Comment on above: Performed By: #### Lexie REDD #### [facility] [address] [place] [address] Dr. Reba Swain METAMYELOCYTE % Normal [facility] Comment on above: Performed By: #### C TRAMAINE #### [facility] [address] [place] [address] Dr. Reba Swain MONOM# 0.25 103/ul Critically low 0.30-0.80 [facility] Comment on above: Performed By: #### C TRAMAINE #### [facility] [address] [address] [address] Reba Swain MONOM% 3.0 % Normal 1.7-12.0 [facility] Comment on above: Performed By: #### C TRAMAINE #### [facility] [address] [place] [address] Dr. Reba Swain MPV 10.3 fL Normal 9.5-13.5 [facility] Comment on above: Performed By: #### C TRAMAINE #### [facility] [address] [place] [address] Dr. Reba Swain MYELOCYTE # Normal [facility] Comment on above: Performed By: #### C TRAMAINE #### [facility] [address] [place] [address] Dr. Reba Swain MYELOCYTE % Normal [facility] Comment on above: Performed By: #### Lexie REDD #### [facility] [address] [place] [address] Dr. Reba Swain NRBC Normal [facility] Comment on above: Performed By: #### C TRAMAINE #### [facility] [address] [place] [address] Dr. Reba Swain PLT 190 103/ul Normal 150-450 [facility] Comment on above: Performed By: #### C TRAMAINE #### [facility] [address] [place] [address] Dr. Reba Swain RBC 4.58 106/ul Normal 4.20-5.40 [facility] Comment on above: Performed By: #### C TRAMAINE #### [facility] [address] [place] [address] Dr. Reba Swain RDW 13.3 % Normal 11.0-15.0 [facility] Comment on above: Performed By: #### C TRAMAINE #### [facility] [address] [place] [address] Dr. Reba Swain SEG # 7.06 103/ul Critically high 1.40-6.50 [facility] Comment on above: Performed By: #### C TRAMAINE #### [facility] [address] [place] [address] Dr. Reba Swain SEG % 85.0 % Critically high 43.0-75.0 [facility] Comment on above: Performed By: #### Lexie REDD #### [facility] [address] [place] [address] Dr. Reba Swain WBC 8.3 103/ul Normal 4.0-11.0 [facility] Comment on above: Performed By: #### Lexie REDD #### [facility] [address] [place] [address] HEAD WO CONon [...] Joe SO Date: 2021-12-21 19:59 Normal [facility] ER URINE PROFILEon 2 Bilirubin Ql (U) Negative Normal NEGATIVE [facility] Comment on above: Performed By: #### ESTEPHANIA HUTCHISON #### [facility] [address] [place] [address] Dr. Reba Swain Clarity (U) CLEAR Normal CLEAR [facility] Comment on above: Performed By: #### ESTEPHANIA HUTCHISON #### [facility] [address] [place] [address] Dr. Reba Swain Color (U) YELLOW Normal YELLOW [facility] Comment on above: Performed By: #### ESTEPHANIA HUTCHISON #### [facility] [address] [place] [address] Dr. Reba CHAUDHRY A micrscopic examina tion will be performed if indicated. Normal [facility] Comment on above: Performed By: #### Amy CONTRERAS UMICRO #### [facility] [address] [place] [address] Dr. Reba Swain Glucose Ql (U) Negative Normal NEGATIVE [facility] Comment on above: Performed By: #### Amy CONTRERAS UMICRO #### [facility] [address] [address] [address] Reba Swain Hemoglobin Ql (U) Negative Normal NEGATIVE [facility] Comment on above: Performed By: #### Amy CONTRERAS UMICRO #### [facility] [address] [place] [address] Dr. Reba Swain Ketones Ql (U) Negative Normal NEGATIVE [facility] Comment on above: Performed By: #### Amy CONTRERAS UMICRO #### [facility] [address] [place] [address] Dr. Reba Swain LEUKOCYTES Negative Normal NEGATIVE [facility] Comment on above: Performed By: #### Amy CONTRERAS UMICRO #### [facility] [address] [place] [address] Dr. Reba Swain Nitrite Ql (U) Negative Normal NEGATIVE [facility] Comment on above: Performed By: #### Amy CONTRERAS UMICRO #### [facility] [address] [place] [address] Dr. Reba Swain pH (U) 7.0 [pH] Normal 5-9 [facility] Comment on above: Performed By: #### Amy CONTRERAS UMICRO #### [facility] [address] [address] [address] Reba Swain Protein (U) [Mass/Vol] 100 mg/dL Abnormal NEGATIVE/ TRACE [facility] Comment on above: Performed By: #### Amy CONTRERAS UMICRO #### [facility] [address] [place] [address] Dr. Reba Swain SPEC GRAVITY 1.025 Normal 1.005-<=1.025 [facility] Comment on above: Performed By: #### ESTEPHANIA HUTCHISON #### [facility] [address] [address] [address] Reba Swain UR MICRO IND INDICATED Normal [facility] Comment on above: Performed By: #### E WESLEY CONTRERASRO #### [facility] [address] [place] [address] Dr. Reba Swain Urobilinogen Qn (U) 0.2 {Tamia'U}/dL Normal 0.2 - 1.0 [facility] Comment on above: Performed By: #### WESLEY HUTCHISONRO #### [facility] [address] [address] [address] Reba Swani PROF CHEM 8 (BAS METB)on Anion gap [Moles/Vol] 14.8 mmol/L Normal [facility] Comment on above: Performed By: #### B MP #### [facility] [address] [place] [address] Dr. Reba Swain Calcium [Mass/Vol] 8.5 mg/dL Normal 8.5-10.1 [facility] Comment on above: Performed By: #### B MP #### [facility] [address] [place] [address] Dr. Reba Swain Chloride [Moles/Vol] 100 mmol/L Normal 98-107 [facility] Comment on above: Performed By: #### B MP #### [facility] [address] [place] [address] Dr. Reba Swain CO2 [Moles/Vol] 23.7 mmol/L Normal 21.0-32.0 [facility] Comment on above: Performed By: #### B MP #### [facility] [address] [place] [address] Dr. Reba Swain Creatinine [Mass/Vol] 0.79 mg/dL Normal 0.55-1.02 [facility] Comment on above: Performed By: #### B MP #### [facility] [address] [place] [address] Dr. Reba Swain EGFR-AF TUNISIAN >60 Normal >=60 [facility] Comment on above: Performed By: #### B MP #### [facility] [address] [address] [address] Reba Swain EGFR-NON AF TUNISIAN >60 Normal >=60 [facility] Comment on above: Performed By: #### B MP #### [facility] [address] [address] [address] Reba Swain Glucose [Mass/Vol] 107 mg/dL Critically high 74-106 T [facility] Comment on above: Performed By: #### B MP #### [facility] [address] [address] [address] Reba Swain Potassium [Moles/Vol] 3.5 mmol/L Normal 3.5-5.1 [facility] Comment on above: Performed By: #### B MP #### [facility] [address] [address] [address] Reba Swain Sodium [Moles/Vol] 135 mmol/L Critically low 136-145 Th [facility] Comment on above: Performed By: #### B MP #### [facility] [address] [address] [address] Rbea Swain Urea nitrogen [Mass/Vol] 9.0 mg/dL Normal 7.0-18.0 [facility] Comment on above: Performed By: #### B MP #### [facility] [address] [address] [address] Reba Swain Urea nitrogen/Creatinin e [Mass ratio] 11.4 mg/mg Normal [facility] Comment on above: Performed By: #### B MP #### [facility] [address] [address] [address] Reba Swain TROPONIN, HIGH SENSITIVITYon 12-21-2021 HSTROP 4.3 pg/mL Normal 4.0-51.3 [facility] Comment on above: Result Comment: CUT- OFF POINTS HAVE BEEN ESTABLISHED BASED ON THE FOURTH UNIVERSAL DEFINITIONS OF MYOCARDIAL INFARCTION. THE UPPER REFERENCE LIMIT (URL) OF TROPONIN, DEFINED THE 99TH PERCENTILE OF cTnI DISTRIBUTION IN A REFERENCE POPULATION, HAS BEEN CONFIRMED THE DECISION THRESHOLD FOR UT DIAGNOSIS. Performed By: #### H STROPN #### [facility] [address] [place] [address] Dr. Reba Swain URINE MICROSCOPIC ONLYon BACTERIA SMALL Abnormal NONE SEEN [facility] Comment on above: Performed By: #### Amy CONTRERAS UMICRO #### [facility] [address] [place] [address] Dr. Reba Swain Bacteria identified Cx Nom (U) INDICATED Normal [facility] Comment on above: Performed By: #### Amy CONTRERAS, UMICRO #### [facility] [address] [place] [address] Dr. Reba Swain CAST SEEN Abnormal NONE SEEN [facility] Comment on above: Performed By: #### E DIANE UMICRO #### [facility] [address] [place] [address] Dr. Reba Swain Crystals LM Nom (Urine sed) NONE SEEN Normal NONE SEEN [facility] Comment on above: Performed By: #### Amy CONTRERAS UMICRO #### [facility] [address] [place] [address] Dr. Reba Swain Epithelial cells LM Ql (Urine sed) FEW Abnormal NONE SEEN /RARE [facility] Comment on above: Performed By: #### Amy CONTRERAS UMICRO #### [facility] [address] [place] [address] Dr. Reba Swain MUCOUS TRACE Abnormal NONE SEEN [facility] Comment on above: Performed By: #### Amy CONTRERAS UMICRO #### [facility] [address] [place] [address] Dr. Reba Swain RBC 0-2 Normal 0-2 [facility] Comment on above: Performed By: #### Amy CONTRERAS UMICRO #### [facility] [address] [place] [address] Dr. Reba Swain WBC 2-5 Abnormal NONE SEEN [facility] Comment on above: Performed By: #### Amy CONTRERAS UMICRO #### [facility] [address] [place] [address] Dr. Reba Swain XR lumbar spine min 4V*on XR lumbar spine min 4V* [facility] [place] [address] [place] [address] XRay Report Signed Patient: Silver Andujar MR#: [id number] : 1985 Acct:[id number] Age/Sex: 35 / F ADM Date: 01/14/21 Loc: [place] Room: Type: [facility] CLI Attending Dr: Madnona Torrez NP Ordering Provider: Madonna Torrez NP [...] Sweeney Jr., M.D.01/14/2021 6:46 PM Dictation Location: [place] [address] Transcribed By: [facility] 01/14/211845 Dictated By: Henrry Sweeney Jr, MD 01/14/211840 Signed By: 01/14/211845 Normal [facility] [id number] 02-16-2020 SARS-CoV-2 Not Detected Normal Not Detected [facility] Comment on above: Result Comment: (NOT E) Testing was performed using the Aptima SARS-CoV-2 assay. This test was developed and its performance characteristics determined by [employer]. This test has not been FDA cleared [...] result in this assay. Performed At: = [facility] [place] [id number] Macy Ortega MD Ph:[phone] Performed By: #### A COV #### [facility] [address] [place] [address] Salesperson Art Objects: Bronson Webster MD Vital Signs Date Time Vital Sign Value Performing Clinician Facility 07-15-2023 13:44-0500 Body temperature 98.01 [degF] Priscilla Albert APRN.VICE PRESIDENT QUALITY Work Phone: [facility] 07-15-2023 13:44-0500 Diastolic blood pressure 81 mm[Hg] Priscilla Albert APRN.VICE PRESIDENT QUALITY Work Phone: [facility] 07-15-2023 13:44-0500 Heart rate 89 /min Priscilla Albert APRN.VICE PRESIDENT QUALITY Work Phone: [facility] 07-15-2023 13:44-0500 Systolic blood pressure 131 mm[Hg] Priscilla Albert APRN.VICE PRESIDENT QUALITY Work Phone: [facility] 12-29-2019 05:16-0400 BMI (Body Mass Index) 37.24 kg/m2 Raheel Renetta Kam[place], [place] 12-29-2019 05:16-0400 Body Temperature 97.3 [degF] Raheel Renetta [facility] [place] 12-29-2019 05:16-0400 Body weight 121.11 kg [place], [place] 12-29-2019 05:16-0400 BP Diastolic 65 mm[Hg] Raheel Hopper [facility] , [place] 12-29-2019 05:16-0400 BP Systolic 114 mm[Hg] Raheel Hopper [facility] , [place] 12-29-2019 05:16-0400 Height 180.3 cm [facility] [place] [place] 12-29-2019 05:16-0400 Pulse (Heart Rate) 60 /min Raheel Hopper [facility] [place] 12-29-2019 05:16-0400 Pulse Oximetry 97 % Raheel [place], [place] 12-29-2019 05:16-0400 Respiratory Rate 18 /min Raheel [facility], [place] Encounters Encounter Date Encounter Type Care Provider Facility Start: 08-16-2024 End: 08-16-2024 ambulatory Laurel ALEXANDER Facility:[facility] Start: 06-25-2024 End: 06-25-2024 ambulatory Rony Daniels [...] ambulatory Rony Daniels MD Facility: [facility] Start: 07-18-2023 End: 07-18-2023 ambulatory Rony Daniels MD Facility: [facility] Start: 07-15-2023 End: 07-15-2023 ambulatory HENRRY VARGAS Facility:[facility] Start: 07-15-2023 End: 07-15-2023 Patient encounter procedure Priscilla Albert VICE PRESIDENT QUALITY Work Phone: [facility] Comment on above: Primary hypertension (Primary Dx) Start: 08-26-2022 End: 08-26-2022 Emergency department patient visit CARISSA BRADFORD [facility] Start: 06-28-2022 End: 06-28-2022 ambulatory MARIE HENRY Facility:[facility] Start: 12-21-2021 End: 12-21-2021 ambulatory MARIE HENRY Facility:[facility] Start: 12-11-2021 ambulatory MARIE HENRY Facility: [facility] Start: 09-27-2021 End: 09-27-2021 ambulatory JOSHUA BAILEY Facility:[facility] Start: 08-11-2021 End: 08-11-[address] MARJAN HAILE Facility:[facility] Start: 09-22-2020 End: 09-22-2020 Patient encounter procedure Jaz Adri Iglesias Work Phone: [facility] Start: 08-25-2020 End: 08-25-2020 Patient encounter procedure Jean-Claude Kendrickjenni [facility] Start: 02-12-2020 End: 02-13-2020 Patient encounter procedure BESSIE MOSES [facility] Start: 02-12-2020 End: 02-12-2020 Subsequent hospital visit by physician [facility] Start: 12-29-2019 End: 12-29-2019 Emergency department patient visit RAHEEL RENETTA [facility] Start: 12-29-2019 End: 12-29-2019 Emergency department patient visit Raheel Hopper Work Phone: [facility] Comment on above: Exposure to needle, initial encounter (Primary Dx) Procedures Date Procedure Procedure Detail Performing Clinician Start: 08-26-2022 [facility] CARISSA BRADFORD Start: 08-26-2022 APPLY DEAN WRAP CARISSA LIZ Start: 08-26-2022 Radiologic examinati on knee 3 views CARISSA BRADFORD Start: 08-26-2022 Dup-scan xtr veins unilateral/limited study CARISSA BRADFORD Start: 02-12-2020 COVID-19 AMBULATORY KARENA WART RENETTA Plan of Treatment Date Care Activity Detail Author Start: 08-17-2026 Tetanus vaccination Tetanus: Every 1 0yrs [facility] Start: 08-17-2026 Urine microalbumin profile DTaP,Tdap,Td Vaccine (2 - Td or Tdap) [facility] Start: 04-15-2023 Covid-19 Vaccine ( season) Covid-19 Vaccine ( season) [facility] Start: 04-15-2023 Influenza vaccination Influenza Vacc ine (#1) [facility] Start: 08-15-2022 Depression Assessment Depression Ass essment [facility] Start: 09-22-2020 COVID-19 Vaccine (Moderna) (#2) COVID-19 Vaccine (Moderna) (#2) [facility] Start: 09-22-2020 End: 09-22-2020 Immunization 09/22/2020 Immunization Primary Care Jaz Iglesias MD [address] [facility] [address] [place] [address] [facility] [employer] [facility] Start: 04-15-2020 Influenza vaccination [place], [place] Start: 04-15-2020 Influenza vaccinatio n given Sequential Influenza Vaccine (#1) [facility] Start: 2013 HPV Testing HPV Testing [facility] Start: 2004 Pap Testing Pap Testing [facility] Start: 2001 Hepatitis C antibody , confirmatory test Hepatitis C Screening [facility] Start: 2001 Hepatitis C Screening Hepatitis C Sc dedra [facility] Start: 2001 HIV Screening HIV Screening [facility] Start: 1998 HIV screening HIV Screening [facility] Start: 1995 Adolescent depressio n screening assessment Depression Screening (PHQ9) [facility] Start: 1989 Pneumococcal vaccination Pneumococcal Vaccine (1 - PCV) [facility] Start: 1986 History and physical examination, annual for health maintenance Wellness Visit [facility] Start: 1983 Creatinine measurement Creatinine mo [place], [place] Start: 1983 Hepatitis B Vaccine (1 of 3 - 3-dose series) Hepatitis B Vaccine (1 of 3 - 3-dose series) [facility] Start: 1983 Potassium monitoring Potassium monit oring [place], [place] Start: 1983 Screening for malign ant neoplasm of cervix Pap Smear [facility] Start: 1983 Tetanus vaccination Tetanus: Every 1 0yrs [facility] End: 02-12-2020 Covid-19 Ambulatory Covid-19 Ambulatory Lab Routine Once for 1 Occurrences starting 02/12/2020 until 02/12/2020 [place], [place] Comment on above: Once for 1 Occurrenc es starting 02/12/2020 until 02/12/2020 Covid-19 Ambulatory Covid-19 Amb ulatory Lab Routine 02/12/2020 7:08 AM EDT [place], [place] Immunizations Immunization Date Immunization Notes Care Provider Olamide chapa 06-04-2022 influenza virus vacc ine, unspecified formulation Priscilla Albert APRN.VICE PRESIDENT QUALITY Work Phone: [facility] 09-22-2020 Moderna SARS-CoV-2 Vaccination Lizbeth Mcclendon [facility] 08-25-2020 Moderna SARS-CoV-2 Vaccination Jean-Claude Kendrickjenni [facility] Payers Date Payer Category Payer Unknown [id number] 2019 Unknown 1985 Unknown [id number] 2.16.8 [id number] 1983 Unknown [id number] 2.16.84 [id number] 1983 Unknown [id number] 2.16.84 [id number] 1983 Unknown [id number] 2.16.84 [id number] 1983 Unknown [id number] 2.16.84 [id number] 1983 Unknown [id number] 2.16.84 [id number] 1983 Unknown [id number] 2.16. 840.1.800170.3.579.2.196 1983 Unknown [id number] 2.16. 840.1.293961.3.579.2.196 1983 Unknown [id number] 2.16. 840.1.196194.3.579.2.196 1983 Unknown [id number] 2.16. 840.1.345096.3.579.2.196 1983 Unknown [id number] 2.16. 840.1.446282.3.579.2.196 1983 Unknown [id number] 2.16. 840.1.428777.3.579.2.196 1983 Unknown [id number] 2.16. 840.1.537606.3.579.2.196 1983 Unknown [id number] 2.16. [id number] 1983 Unknown [id number] 2.16. [id number] 1961 Self-pay [id number] Self-pay Social History Date Type Detail Facility Start: 12-29-2019 End: 07-15-2023 Tobacco smoking status NHIS Current every day smoker [facility] Start: 12-29-2019 End: 07-15-2023 Cigarettes smoked current (pack per day) - Reported [place], [place] Start: 12-29-2019 Alcohol intake Lifetime non-d giovanny (finding) [place] Start: 12-29-2019 History SDOH Alcohol Frequency 1 [place], [place] Start: 1985 Sex Assigned At Not on file [place] Exposure to SARS-CoV -2 (event) Unable to assess [place] Exposure to SARS-CoV -2 (event) Not sure [facility] History of tobacco use Cigarette Smoker [facility] Start: 07-15-2023 Tobacco use and exposure User of smokeless tobacco [facility] Start: 07-15-2023 Tobacco use panel [facility] Progress note 07-15-2023 Note Date & Type Note Facility 07-15-2023 Note HNO ID: [id number] Author: Priscilla Albert APRN.VICE PRESIDENT QUALITY Service: ? Author Type: Nurse Practitioner Type: [...] seek emergency care Gayatri Tony, MSN, RN- GLUE SIZE MACHINE OPERATOR Student Gayatri Tony, student nurse practitioner, and myself have interviewed the patient. I re-performed the HPI and physical exam. Assessment and plan was developed together. I spent a total of 30 minutes on the date of the service which included preparing to see the patient, [id number] patient care, completing clinical documentation, obtaining and/or reviewing separately obtained history, performing a medically appropriate examination, counseling and educating the patient/family/caregiver, and ordering medications, tests, or procedures. Priscilla Albert APRN.PABLO [facility] History of Present illness Narrative 07-15-2023 Priscilla Albert APRN.VICE PRESIDENT QUALITY - 07/15/2023 1:49 PM EST Note Date [...] seek emergency care Gayatri Tony, MSN, RN-BC GLUE SIZE MACHINE OPERATOR Student Gayatri Tony, student nurse practitioner, and myself have interviewed the patient. I re-performed the HPI and physical exam. Assessment and plan was developed together. I spent a total of 30 minutes on the date of the service which included preparing to see the patient, [id number] patient care, completing clinical documentation, obtaining and/or reviewing separately obtained history, performing a medically appropriate examination, counseling and educating the patient/family/caregiver, and ordering medications, tests, or procedures. Priscilla Albert APRN.VICE PRESIDENT QUALITY documented in this encounter [facility] Clinical Note 09-27-2021 Note Date & [...] by: RICARDO WEBB Date: 2021-09-27 13:13 [facility] Evaluation note Note Date & Type Note Facility Evaluation note Diagnosis Primary hypertension- Primary Unspecified essential hypertension documented in this encounter [facility] Discharge Instructions * Instructions* Crystal Little MD - 12/29/[address] for visiting [facility] Emergency Department. You need to call No primary care provider on file. to make an appointment as directed for follow up. Should you have any questions regarding your care or further treatment, please call [facility] Emergency Department at [phone]. 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 Advance Directives and Living Will [...] section and content) DATE CREATED AUTHOR 03/06/2020 [facility] DATE CREATED AUTHOR AUTHOR'S ORGANIZ ATION 01/30/2021 [facility] DATE CREATED AUTHOR AUTHOR'S ORGANIZ ATION 06/30/2022 [facility] DATE CREATED AUTHOR AUTHOR'S ORGANIZ ATION 08/26/2022 [facility] DATE CREATED AUTHOR AUTHOR'S ORGANIZ ATION 07/18/2023 [facility] DATE CREATED AUTHOR AUTHOR'S ORGANIZ ATION 07/03/2024 [facility] DATE CREATED AUTHOR AUTHOR'S ORGANIZ ATION 08/17/2024 [facility] Source Comments (unrecognize d section and content) In the event this informatio n is protected by the Federal Confidentiality of Alcohol and Drug Abuse Patient Records regulations: The Federal rules restrict any use of the information to criminally investigate or prosecute any alcohol or drug abuse patient.[facility] Care Teams (unrecognized sec tion and content) Matrix Plater 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 [employer] [facility]. provides no warranty or guarantee of the accuracy or completeness of information in this document.
[2024-10-02 06:07] LABS: Hepatitis B Surf Ab Quant <3.5 mIU/mL (Immunity>10); Mumps Abs, IgG 78.3 AU/mL (Immune >10.9); Rubella Antibodies, IgG 6.57 index (Immune >0.99); Varicella-Zoster V Ab, IgG Reactive (Non Reactive)
[2024-10-03 06:08] LABS: QuantiFERON-TB Gold Plus Negative (Negative)
== END 2024-10-01 13:26 | disposition home or self-care (01) ==
LOC: LAB 13:26
PROVIDERS: PCP Nurse Practitioner Family; Visit Provider Nurse Practitioner Family
DX: Z00.00 Encounter for general adult medical examination without abnormal findings (principal)
CPT/HCPCS: 36415; 86317; 86480; 86735; 86762; 86765; 86787

== ENCOUNTER 2024-10-29 14:00 | Outpatient (OUT) | payer OTHER, SELFPAY ==
--- OUTSIDE RECORDS SUMMARY | 2024-10-29 14:16 | XMS_ITS | CCD ---
Author Organization [facility] In[facility] ion [facility] Care Team Providers Care Game Programmer Name Role Phone Unavailable Primary Care Provider [...] BARROW, Andrius Vytsharda Attending Unavailable Frances BARROW, Rony Clifford Attending Unavailable Frances BARROW, Rony Clifford Attending Unavailable Laurel ALEXANDER Attending Unavailable Allergies Allergy Classification Reported Allergen(s) Allergy Type Date of Onset Reaction(s) Facility (3 sources) Acetaminophen / oxyCODONE Drug Allergy 04-21-20 18 Itching [place], [place] (3 sources) busPIRone Drug Allergy 04-21-20 18 Other: See Comments [place] (3 sources) Sulfamethoxazole / Trimethoprim Drug Allergy 04-21-20 18 Anaphylaxis [place] (2 sources) Acetaminophen / oxyCODONE; 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: [...] Propensity to adverse reactions (disorder) [facility] Repository (1 source) Sulfamethoxazole / Trimethoprim; 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: [Bactrim] Drug Allergy [facility] Repository Medications Current Medications Medication Drug [...] 06-30-2022 Chronic Other aftercare (1 source) Other [facility] (current) drug therapy; 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: [OTH [facility] CURRENT [...] Test Name Value Interpretation Reference Range Facility [facility] 07-15-2023 CNOV Office Visit (WALKMN ) -------- SILVER ANDUJAR ([id number]) 1985 F Date Time Provider Department 07/15/23 1:45 PM PRISCILLA ALBERT WALKWY During your visit today, we recorded the following information about you: Temperature Pulse Blood pressure 98 degrees 89/minute 131/81 Priscilla Albert APRN.LANGUAGE INSTRUCTOR 07/15/2023 4:34 PM Signed CC: Headache and [...] seek emergency care Gayatri Tony, MSN, RN-BC TAMPING MACHINE OPERATOR Student Gayatri Tony, student nurse practitioner, and myself have interviewed the patient. I re-performed the HPI and physical exam. Assessment and plan was developed together. I spent a total of 30 minutes on the date of the service which included preparing to see the patient, wsim-[id number] patient care, completing clinical documentation, obtaining and/or reviewing separately obtained history, performing a medically appropriate examination, counseling and educating the patient/family/caregiver , and ordering medications, tests, or procedures. Priscilla Albert APRN.LANGUAGE INSTRUCTOR Referring Provider: SELF [[id number]] Allergies As of Date: 07/15/2023 Noted Allergy Reaction BUSPIRONE 04/21/2018 14 - Other: See Comments OXYCODONE-ACETAMINOPHEN 04/21/2018 9 - Itching SULFAMETHOXAZOLE-TRIMETH OPRIM 04/21/2018 10 - Anaphylaxis Date Reviewed: 07/15/2023 Reviewed by: Priscilla Albert APRN.LANGUAGE INSTRUCTOR - Fully Assessed Reason for Visit: Headache [...] Status:Closed by PRISCILLA ALBERT on 07/15/23 Normal [facility] US DUP LOWER EXTREMITY RIGHT [...] Henrry Sweeney MD 08/26/22 Final result Normal [facility] Comment on above: Order Comment: [...] Henrry Sweeney MD 08/26/22 Final result Normal [facility] Comment on above: Order Comment: [...] U RCX #### [facility] [address] [place] [address] Dr. Reba Swain CBC W MANUAL DIFFon 12-22-19 22 ATYPICAL LYMPH # Normal [facility] Comment on above: Performed By: #### C BCMAN #### [facility] [address] [address] [address] Reba Swain ATYPICAL LYMPH % Normal [facility] Comment on above: Performed By: #### C BCMAN #### [facility] [address] [place] [address] Dr. Reba Swain BAND # Normal 0.0-0.3 [facility] Comment on above: Performed By: #### C BCMAN #### [facility] [address] [address] [address] Reba Swain BAND % Normal 0-5 [facility] Comment on above: Performed By: #### C BCMAN #### [facility] [address] [place] [address] Dr. Reba Swain BASOM # 0.08 103/ul Normal 0.00-0.10 [facility] Comment on above: Performed By: #### C BCMAN #### [facility] [address] [place] [address] Dr. Reba Swain BASOM % 1.0 % Normal 0.2-2.0 [facility] Comment on above: Performed By: #### C BCNIKI #### [facility] [address] [place] [address] Dr. Reba Swain BLAST # Normal [facility] Comment on above: Performed By: #### C TRAMAINE #### [facility] [address] [place] [address] Dr. Reba Swain BLAST % Normal [facility] Comment on above: Performed By: #### C BCNIKI #### [facility] [address] [place] [address] Dr. Reba Swain CORRECTED WBC Normal 4.0-11.0 [facility] Comment on above: Performed By: #### C BCNIKI #### [facility] [address] [place] [address] Dr. Reba Swain EOS # 0.08 103/ul Normal 0.00-0.70 [facility] Comment on above: Performed By: #### C BCNIKI #### [facility] [address] [place] [address] Dr. Reba Swain EOS% 1.0 % Normal 0.9-7.0 [facility] Comment on above: Performed By: #### C BCMAN #### [facility] [address] [place] [address] Dr. Reba Swain HCT 42.3 % Normal 36.0-48.0 [facility] Comment on above: Performed By: #### C TRAMAINE #### [facility] [address] [place] [address] Dr. Reba Swain HGB 14.0 g/dl Normal 12.0-16.0 [facility] Comment on above: Performed By: #### C TRAMAINE #### [facility] [address] [place] [address] Dr. Reba Swain LYMPHM # 0.83 103/ul Critically low 1.20-3.80 [facility] Comment on above: Performed By: #### C TRAMAINE #### [facility] [address] [place] [address] Dr. Reba Swain LYMPHM% 10.0 % Critically low 20.5-60.0 [facility] Comment on above: Performed By: #### Lexie REDD #### [facility] [address] [place] [address] Dr. Reba Swain MCH 30.6 pg Normal 26.7-34.0 [facility] Comment on above: Performed By: #### Lexie REDD #### [facility] [address] [place] [address] Dr. Reba Swain MCHC 33.1 g/dl Normal 29.9-35.2 [facility] Comment on above: Performed By: #### Lexie REDD #### [facility] [address] [place] [address] Dr. Reba Swain MCV 92.4 fL Normal 81.0-99.0 [facility] Comment on above: Performed By: #### Lexie REDD #### [facility] [address] [place] [address] Dr. Reba Swain METAMYELOCYTE # Normal [facility] Comment on above: Performed By: #### Lexie REDD #### [facility] [address] [place] [address] Dr. Reba Swain METAMYELOCYTE % Normal [facility] Comment on above: Performed By: #### C TRAMAINE #### [facility] [address] [place] [address] Dr. Reba Swain MONOM# 0.25 103/ul Critically low 0.30-0.80 [facility] Comment on above: Performed By: #### C TRAMAINE #### [facility] [address] [address] [address] Reba Swain MONOM% 3.0 % Normal 1.7-12.0 [facility] Comment on above: Performed By: #### C TRAMAINE #### [facility] [address] [place] [address] Dr. Reba Swain MPV 10.3 fL Normal 9.5-13.5 [facility] Comment on above: Performed By: #### C TRAMAINE #### [facility] [address] [place] [address] Dr. Reba Swain MYELOCYTE # Normal [facility] Comment on above: Performed By: #### C TRAMAINE #### [facility] [address] [place] [address] Dr. Reba Swain MYELOCYTE % Normal [facility] Comment on above: Performed By: #### Lexie REDD #### [facility] [address] [place] [address] Dr. Reba Swain NRBC Normal [facility] Comment on above: Performed By: #### C TRAMAINE #### [facility] [address] [place] [address] Dr. Reba Swain PLT 190 103/ul Normal 150-450 [facility] Comment on above: Performed By: #### C TRAMAINE #### [facility] [address] [place] [address] Dr. Reba Swain RBC 4.58 106/ul Normal 4.20-5.40 [facility] Comment on above: Performed By: #### C TRAMAINE #### [facility] [address] [place] [address] Dr. Reba Swain RDW 13.3 % Normal 11.0-15.0 [facility] Comment on above: Performed By: #### C TRAMAINE #### [facility] [address] [place] [address] Dr. Reba Swain SEG # 7.06 103/ul Critically high 1.40-6.50 [facility] Comment on above: Performed By: #### C TRAMAINE #### [facility] [address] [place] [address] Dr. Reba Swain SEG % 85.0 % Critically high 43.0-75.0 [facility] Comment on above: Performed By: #### Lexie REDD #### [facility] [address] [place] [address] Dr. Reba Swain WBC 8.3 103/ul Normal 4.0-11.0 [facility] Comment on above: Performed By: #### Lexie REDD #### [facility] [address] [place] [address] HEAD WO CONon [...] (U) Negative Normal NEGATIVE [facility] Comment on above: Performed By: #### ESTEPHANIA HUTCHISON #### [facility] [address] [place] [address] Dr. Reba Swain Clarity (U) CLEAR Normal CLEAR [facility] Comment on above: Performed By: #### ESTEPHANIA HUTCHISON #### [facility] [address] [place] [address] Dr. Reba Swain Color (U) YELLOW Normal YELLOW [facility] Comment on above: Performed By: #### ESTEPHANIA HUTCHISON #### [facility] [address] [place] [address] Dr. Reba CHAUDHRY A micrscopic examina tion will be performed if indicated. Normal [facility] Comment on above: Performed By: #### Amy CONTRERAS UMICRO #### [facility] [address] [place] [address] Dr. Reba Swain Glucose Ql (U) Negative Normal NEGATIVE [facility] Comment on above: Performed By: #### Amy CONTRERAS UMICRO #### [facility] [address] [address] [address] Reba Swain Hemoglobin Ql (U) Negative Normal NEGATIVE [facility] Comment on above: Performed By: #### Amy CONTRERAS UMICRO #### [facility] [address] [place] [address] Dr. Reba Swain Ketones Ql (U) Negative Normal NEGATIVE [facility] Comment on above: Performed By: #### Amy CONTRERAS UMICRO #### [facility] [address] [place] [address] Dr. Reba Swain LEUKOCYTES Negative Normal NEGATIVE [facility] Comment on above: Performed By: #### Amy CONTRERAS UMICRO #### [facility] [address] [place] [address] Dr. Reba Swain Nitrite Ql (U) Negative Normal NEGATIVE [facility] Comment on above: Performed By: #### Amy CONTRERAS UMICRO #### [facility] [address] [place] [address] Dr. Reba Swain pH (U) 7.0 [pH] Normal 5-9 [facility] Comment on above: Performed By: #### Amy CONTRERAS UMICRO #### [facility] [address] [address] [address] Reba Swain Protein (U) [Mass/Vol] 100 mg/dL Abnormal NEGATIVE/ TRACE [facility] Comment on above: Performed By: #### Amy CONTRERAS UMICRO #### [facility] [address] [place] [address] Dr. Reba Swain SPEC GRAVITY 1.025 Normal 1.005-<=1.025 [facility] Comment on above: Performed By: #### ESTEPHANIA HUTCHISON #### [facility] [address] [address] [address] Reba Swain UR MICRO IND INDICATED Normal [facility] Comment on above: Performed By: #### E WESLEY CONTRERASRO #### [facility] [address] [place] [address] Dr. Reba Swain Urobilinogen Qn (U) 0.2 {Tamia'U}/dL Normal 0.2 - 1.0 [facility] Comment on above: Performed By: #### WESLEY HUTCHISONRO #### [facility] [address] [address] [address] Reba Swain PROF CHEM 8 (BAS METB)on Anion gap [Moles/Vol] 14.8 mmol/L Normal [facility] Comment on above: Performed By: #### B MP #### [facility] [address] [place] [address] Dr. Reba Swain Calcium [Mass/Vol] 8.5 mg/dL Normal 8.5-10.1 [facility] Comment on above: Performed By: #### B MP #### [facility] [address] [place] [address] Dr. Reba Swain Chloride [Moles/Vol] 100 mmol/L Normal 98-107 [facility] Comment on above: Performed By: #### B MP #### [facility] [address] [place] [address] Dr. Reba Swain CO2 [Moles/Vol] 23.7 mmol/L Normal 21.0-32.0 [facility] Comment on above: Performed By: #### B MP #### [facility] [address] [place] [address] Dr. Reba Swain Creatinine [Mass/Vol] 0.79 mg/dL Normal 0.55-1.02 [facility] Comment on above: Performed By: #### B MP #### [facility] [address] [place] [address] Dr. Reba Swain EGFR-AF LEBANESE >60 Normal >=60 [facility] Comment on above: Performed By: #### B MP #### [facility] [address] [address] [address] Reba Swain EGFR-NON AF LEBANESE >60 Normal >=60 [facility] Comment on above: Performed By: #### B MP #### [facility] [address] [address] [address] Reba Swain Glucose [Mass/Vol] 107 mg/dL Critically high 74-106 [facility] Comment on above: Performed By: #### B MP #### [facility] [address] [address] [address] Reba Swain Potassium [Moles/Vol] 3.5 mmol/L Normal 3.5-5.1 [facility] Comment on above: Performed By: #### B MP #### [facility] [address] [address] [address] Reba Swain Sodium [Moles/Vol] 135 mmol/L Critically low 136-145 Th [facility] Comment on above: Performed By: #### B MP #### [facility] [address] [address] [address] Reba Swain Urea nitrogen [Mass/Vol] 9.0 mg/dL Normal 7.0-18.0 [facility] Comment on above: Performed By: #### B MP #### [facility] [address] [address] [address] Reba Swain Urea nitrogen/Creatinin e [Mass ratio] 11.4 mg/mg Normal [facility] Comment on above: Performed By: #### B MP #### [facility] [address] [address] [address] Reba Swain TROPONIN, HIGH SENSITIVITYon 12-21-2021 HSTROP 4.3 pg/mL Normal 4.0-51.3 [facility] Comment on above: Result Comment: CUT- OFF POINTS HAVE BEEN ESTABLISHED BASED ON THE FOURTH UNIVERSAL DEFINITIONS OF MYOCARDIAL INFARCTION. THE UPPER REFERENCE LIMIT (URL) OF TROPONIN, DEFINED THE 99TH PERCENTILE OF cTnI DISTRIBUTION IN A REFERENCE POPULATION, HAS BEEN CONFIRMED THE DECISION THRESHOLD FOR ME DIAGNOSIS. Performed By: #### H STROPN #### [facility] [address] [place] [address] Dr. Reba Swain URINE MICROSCOPIC ONLYon BACTERIA SMALL Abnormal NONE SEEN The [facility] Comment on above: Performed By: #### Amy CONTRERAS UMICRO #### [facility] [address] [place] [address] Dr. Reba Swain Bacteria identified Cx Nom (U) INDICATED Normal [facility] Comment on above: Performed By: #### Amy CONTRERAS, UMICRO #### [facility] [address] [place] [address] Dr. Reba Swain CAST SEEN Abnormal NONE SEEN [facility] Comment on above: Performed By: #### E DIANE UMICRO #### [facility] [address] [place] [address] Dr. Reba Swain Crystals LM Nom (Urine sed) NONE SEEN Normal NONE SEEN [facility] Comment on above: Performed By: #### Amy CONTRERAS UMICRO #### [facility] [address] [place] [address] Dr. Reba Swain Epithelial cells LM Ql (Urine sed) FEW Abnormal NONE SEEN /RARE [facility] Comment on above: Performed By: #### Amy CONTRERAS UMICRO #### [facility] [address] [place] [address] Dr. Reba Swain MUCOUS TRACE Abnormal NONE SEEN [facility] Comment on above: Performed By: #### Amy CONTRERAS UMICRO #### [facility] [address] [place] [address] Dr. Reba Swain RBC 0-2 Normal 0-2 [facility] Comment on above: Performed By: #### Amy CONTRERAS UMICRO #### [facility] [address] [place] [address] Dr. Reba Swain WBC 2-5 Abnormal NONE SEEN [facility] Comment on above: Performed By: #### Amy CONTRERAS UMICRO #### [facility] [address] [place] [address] Dr. Reba Swain XR lumbar spine min 4V*on XR lumbar spine min 4V* [facility] [place] [address] [place] [address] XRay Report Signed Patient: Silver Andujar MR#: [id number] : 1985 Acct:[id number] Age/Sex: 35 / F ADM Date: 01/14/21 Loc: [place] Room: Type: [facility] CLI Attending Dr: Madonna Torrez NP [...] Sweeney Jr., M.D.01/14/2021 6:46 PM Dictation Location: [address] [address] Transcribed By: [facility] 01/14/211845 Dictated By: Henrry Sweeney Jr, MD 01/14/211840 Signed By: 01/14/211845 Normal [facility] [id number] 02-16-2020 SARS-CoV-2 Not Detected Normal Not Detected [facility] Comment on above: Result Comment: (NOT E) Testing was performed using the Aptima SARS-CoV-2 assay. This test was developed and its performance characteristics determined by [employer]. This test has not been FDA cleared [...] result in this assay. Performed At: = [facility] [place] [id number] Macy Ortega MD Ph:[phone] Performed By: #### A COV #### [facility] [address] [place] [address] Administrative Hearing Officer: Bronson Webster MD Vital Signs Date Time Vital Sign Value Performing Clinician Facility 07-15-2023 13:44-0500 Body temperature 98.01 [degF] Priscilla Albert APRN.LANGUAGE INSTRUCTOR Work Phone: [facility] 07-15-2023 13:44-0500 Diastolic blood pressure 81 mm[Hg] Priscilla Albert APRN.LANGUAGE INSTRUCTOR Work Phone: [facility] 07-15-2023 13:44-0500 Heart rate 89 /min Priscilla Albert APRN.LANGUAGE INSTRUCTOR Work Phone: [facility] 07-15-2023 13:44-0500 Systolic blood pressure 131 mm[Hg] Priscilla Albert APRN.LANGUAGE INSTRUCTOR Work Phone: [facility] 12-29-2019 05:16-0400 BMI (Body Mass Index) 37.24 kg/m2 Raheel Renetta Kaminski [place], [place] 12-29-2019 05:16-0400 Body Temperature 97.3 [degF] Raheel Renetta [facility], [place] 12-29-2019 05:16-0400 Body weight 121.11 kg [place], [place] 12-29-2019 05:16-0400 BP Diastolic 65 mm[Hg] Raheel Hopper [facility] , [place] 12-29-2019 05:16-0400 BP Systolic 114 mm[Hg] Raheel Hopper [facility] , [place] 12-29-2019 05:16-0400 Height 180.3 cm [facility] [place] [place] 12-29-2019 05:16-0400 Pulse (Heart Rate) 60 /min Raheel Hopper [facility] [place] 12-29-2019 05:16-0400 Pulse Oximetry 97 % Raheel [place], [place] 12-29-2019 05:16-0400 Respiratory Rate 18 /min Raheel [facility], [place] Encounters Encounter Date Encounter Type Care Provider Facility Start: 08-16-2024 End: 08-16-2024 ambulatory Laurel ALEXANDER Facility:[facility] Start: 06-25-2024 End: 06-25-2024 ambulatory Rony Daniels [...] 07-15-2023 End: 07-15-2023 ambulatory HENRRY VARGAS Facility:[facility] Start: 07-15-2023 End: 07-15-2023 Patient encounter procedure Priscilla Albert LANGUAGE INSTRUCTOR Work Phone: [facility] Comment on above: Primary hypertension (Primary Dx) Start: 08-26-2022 End: 08-26-2022 Emergency department patient visit CARISSA BRADFORD [facility] Start: 06-28-2022 End: 06-28-2022 ambulatory MARIE HENRY Facility:[facility] Start: 12-21-2021 End: 12-21-2021 ambulatory MARIE HENRY Facility:[facility] Start: 12-11-2021 ambulatory MARIE HENRY Facility: [facility] Start: 09-27-2021 End: 09-27-2021 ambulatory JOSHUA BAILEY Facility:[facility] Start: 08-11-2021 End: 08-11-[address] MARJAN HAILE Facility:[facility] Start: 09-22-2020 End: 09-22-2020 Patient encounter procedure Jaz Adri Iglesias Work Phone: [facility] Start: 08-25-2020 End: 08-25-2020 Patient encounter procedure Jean-Claude Kendrickjenni [facility] Start: 02-12-2020 End: 02-13-2020 Patient encounter procedure BESSIE MOSES [facility] Start: 02-12-2020 End: 02-12-2020 Subsequent hospital visit by physician [facility] Start: 12-29-2019 End: 12-29-2019 Emergency department patient visit RAHEEL RENETTA [facility] Start: 12-29-2019 End: 12-29-2019 Emergency department patient visit Raheel Hopper Work Phone: [facility] Comment on above: Exposure to [...] DTaP,Tdap,Td Vaccine (2 - Td or Tdap) [facility] Start: 04-15-2023 Covid-19 Vaccine ( season) Covid-19 Vaccine ( season) [facility] Start: 04-15-2023 Influenza vaccination Influenza Vacc ine (#1) [facility] Start: 08-15-2022 Depression Assessment Depression Ass essment [facility] Start: 09-22-2020 COVID-19 Vaccine (Moderna) (#2) COVID-19 Vaccine (Moderna) (#2) [facility] Start: 09-22-2020 End: 09-22-2020 Immunization 09/22/2020 Immunization Primary Care Jaz Iglesias MD [address] [facility] [address] [place] [address] [facility] [employer] [facility] Start: 04-15-2020 Influenza vaccination [place], [place] Start: 04-15-2020 Influenza vaccinatio n given Sequential Influenza Vaccine (#1) [facility] Start: 2013 HPV Testing HPV Testing [facility] Start: 2004 Pap Testing Pap Testing [facility] Start: 2001 Hepatitis C antibody , confirmatory test Hepatitis C Screening [facility] Start: 2001 Hepatitis C Screening Hepatitis C Sc dedra [facility] Start: 2001 HIV Screening HIV Screening [facility] Start: 1998 HIV screening HIV Screening [facility] Start: 1995 Adolescent depressio n screening assessment Depression Screening (PHQ9) [facility] Start: 1989 Pneumococcal vaccination Pneumococcal Vaccine (1 - PCV) [facility] Start: 1986 History and physical examination, annual for health maintenance Wellness Visit [facility] Start: 1983 Creatinine measurement Creatinine mo [place], [place] Start: 1983 Hepatitis B Vaccine (1 of 3 - 3-dose series) Hepatitis B Vaccine (1 of 3 - 3-dose series) [facility] Start: 1983 Potassium monitoring Potassium monit oring [place], [place] Start: 1983 Screening for malign ant neoplasm of cervix Pap Smear [facility] Start: 1983 Tetanus vaccination Tetanus: Every 1 0yrs [facility] End: 02-12-2020 Covid-19 Ambulatory Covid-19 Ambulatory Lab Routine Once for 1 Occurrences starting 02/12/2020 until 02/12/2020 [place] Comment on above: Once for 1 Occurrenc es starting 02/12/2020 until 02/12/2020 Covid-19 Ambulatory Covid-19 Amb ulatory Lab Routine 02/12/2020 7:08 AM EDT [place] Immunizations Immunization Date Immunization Notes Care Provider Olamide chapa 06-04-2022 influenza virus vacc ine, unspecified formulation Priscilla Albert APRN.LANGUAGE INSTRUCTOR Work Phone: [facility] 09-22-2020 Moderna SARS-CoV-2 Vaccination Lizbeth Mcclendon [facility] 08-25-2020 Moderna SARS-CoV-2 Vaccination Jean-Claude Kendrickjenni [facility] Payers Date Payer Category Payer Unknown [id number] 2019 Unknown 1983 Unknown [id number] 2.16.8 [id number] 1983 Unknown [id number] 2.16.84 [id number] 1983 Unknown [id number] 2.16.84 [id number] 1983 Unknown [id number] 2.16.84 0.1.200028.3.579.2.593 1983 Unknown [id number] 2.16.84 0.1.895471.3.579.2.593 1983 Unknown [id number] 2.16.84 0.1.833053.3.579.2.593 1983 Unknown [id number] 2.16. 840.1.678474.3.579.2.196 1983 Unknown [id number] 2.16. 840.1.733972.3.579.2.196 1983 Unknown [id number] 2.16. 840.1.168258.3.579.2.196 1983 Unknown [id number] 2.16. 840.1.376105.3.579.2.196 1983 Unknown [id number] 2.16. 840.1.696590.3.579.2.196 1983 Unknown [id number] 2.16. 840.1.853650.3.579.2.196 1983 Unknown [id number] 2.16. 840.1.298481.3.579.2.196 1983 Unknown [id number] 2.16. 840.1.734515.3.579.2.196 1983 Unknown [id number] 2.16. [id number] 1961 Self-pay [id number] Self-pay Social History Date Type Detail Facility Start: 12-29-2019 End: 07-15-2023 Tobacco smoking status NHIS Current every day smoker [facility] Start: 12-29-2019 End: 07-15-2023 Cigarettes smoked current (pack per day) - Reported [place] Start: 12-29-2019 Alcohol intake Lifetime non-d giovanny (finding) [place] Start: 12-29-2019 History SDOH Alcohol Frequency 1 [place] Start: 1985 Sex Assigned At Not on file M [place], [place] Exposure to SARS-CoV -2 (event) Unable to assess [place] Exposure to SARS-CoV -2 (event) Not sure [facility] History of tobacco use Cigarette Smoker [facility] Start: 07-15-2023 Tobacco use and exposure User of smokeless tobacco [facility] Start: 07-15-2023 Tobacco use panel [facility] Progress note 07-15-2023 Note Date & Type Note Facility 07-15-2023 Note HNO ID: [id number] Author: Priscilla Albert APRN.LANGUAGE INSTRUCTOR Service: ? Author Type: Nurse Practitioner Type: [...] seek emergency care Gayatri Tony, MSN, RN- TAMPING MACHINE OPERATOR Student Gayatri Tony, student nurse practitioner, and myself have interviewed the patient. I re-performed the HPI and physical exam. Assessment and plan was developed together. I spent a total of 30 minutes on the date of the service which included preparing to see the patient, [id number] patient care, completing clinical documentation, obtaining and/or reviewing separately obtained history, performing a medically appropriate examination, counseling and educating the patient/family/caregiver, and ordering medications, tests, or procedures. Priscilla Albert APRN.PABLO [facility] History of Present illness Narrative 07-15-2023 Priscilla Albert APRN.LANGUAGE INSTRUCTOR - 07/15/2023 1:49 PM EST Note Date [...] seek emergency care Gayatri Tony, MSN, RN-BC TAMPING MACHINE OPERATOR Student Gayatri Tony, student nurse practitioner, and myself have interviewed the patient. I re-performed the HPI and physical exam. Assessment and plan was developed together. I spent a total of 30 minutes on the date of the service which included preparing to see the patient, [id number] patient care, completing clinical documentation, obtaining and/or reviewing separately obtained history, performing a medically appropriate examination, counseling and educating the patient/family/caregiver, and ordering medications, tests, or procedures. Priscilla Albert APRN.LANGUAGE INSTRUCTOR documented in this encounter [facility] Clinical Note 09-27-2021 Note Date & [...] by: RICARDO WEBB Date: 2021-09-27 13:13 [facility] Evaluation note Note Date & Type Note Facility Evaluation note Diagnosis Primary hypertension- Primary Unspecified essential hypertension documented in this encounter [facility] Discharge Instructions * Instructions* Crystal Little MD - 12/29/2019 Thank you for visiting [facility]. You need to call No primary care provider on file. to make an appointment as directed for follow up. Should you have any questions regarding your care or further treatment, please call [facility] Emergency Department at [phone]. Take any medications as prescribed, if given [...] FoundDocuments on File Type Date Recorded Patient Staff Weapons Officer Expl anation Advance Directives and Living Will Power of Batcher Operator Documents on File Type Date Recorded Patient Staff Weapons Officer Expl anation Advance Directives and Living Will [...] section and content) DATE CREATED AUTHOR 03/06/2020 [facility] DATE CREATED AUTHOR AUTHOR'S ORGANIZ ATION 01/30/2021 [facility] DATE CREATED AUTHOR AUTHOR'S ORGANIZ ATION 06/30/2022 [facility] DATE CREATED AUTHOR AUTHOR'S ORGANIZ ATION 08/26/2022 [facility] DATE CREATED AUTHOR AUTHOR'S ORGANIZ ATION 07/18/2023 [facility] DATE CREATED AUTHOR AUTHOR'S ORGANIZ ATION 07/03/2024 [facility] DATE CREATED AUTHOR AUTHOR'S ORGANIZ ATION 08/17/2024 [facility] Source Comments (unrecognize d section and content) In the event this informatio n is protected by the Federal Confidentiality of Alcohol and Drug Abuse Patient Records regulations: The Federal rules restrict any use of the information to criminally investigate or prosecute any alcohol or drug abuse patient.[facility] Care Teams (unrecognized sec tion and content) Game 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 [facility]. provides no warranty or guarantee of the accuracy or completeness of information in this document.
[2024-10-29 14:38] LABS: Estimated Average Glucose 114 mg/dL; Glycohemoglobin A1C 5.6 % (4.5-6.2)
== END 2024-10-29 14:01 | disposition home or self-care (01) ==
LOC: LAB 14:01
PROVIDERS: PCP Nurse Practitioner Family; Visit Provider Nurse Practitioner Family
DX: Z00.00 Encounter for general adult medical examination without abnormal findings (principal)
CPT/HCPCS: 36415; 83036

== ENCOUNTER 2024-11-01 07:50 | Outpatient (OUT) | payer OTHER, SELFPAY ==
--- OUTSIDE RECORDS SUMMARY | 2024-11-01 08:02 | XMS_ITS | CCD ---
Author Organization [facility] Informat ion Partnership [facility] Care Team Providers Care Replenishment Buyer Name Role Phone Unavailable Primary Care Provider [...] BARROW, Andrius Vytsharda Attending Unavailable Gironal BARROW, Rony Clifford Attending Unavailable Frances BARROW, Rony Clifford Attending Unavailable Laurel ALEXANDER Attending Unavailable Allergies Allergy Classification Reported Allergen(s) Allergy Type Date of Onset Reaction(s) Facility (3 sources) Acetaminophen / oxyCODONE Drug Allergy 04-21-20 18 Itching [place] (3 sources) busPIRone Drug Allergy 04-21-20 18 Other: See Comments [place] (3 sources) Sulfamethoxazole / Trimethoprim Drug Allergy 04-21-20 18 Anaphylaxis [place] (2 sources) Acetaminophen / oxyCODONE; 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: [Percocet] Drug Allergy 08-15-19 15 [facility] (2 sources) Adhesive agent Drug allergy (disorder) 11-28-19 15 [facility] (3 sources) busPIRone; 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: [BuSpar] Drug Allergy 08-07-20 16 [facility] (2 sources) Latex; 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: [Latex] Drug allergy (disorder) [facility] (1 source) Sulfamethoxazole / Trimethoprim Drug Allergy [facility] (1 source) venlafaxine Drug Allergy [facility] (1 source) Adhesive bandage; 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: [Adhesive Bandage] Propensity to adverse reactions (disorder) [facility] (1 source) Sulfamethoxazole / Trimethoprim; 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: [Bactrim] Drug Allergy [facility] Medications Current Medications Medication Drug [...] Other alf (current) drug therapy; 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: [OTH INTERMEDIATE CURRENT DRUG THERAPY] Onset: 06-30-2022 Episodic Other [...] Test Name Value Interpretation Reference Range Facility [facility] 07-15-2023 CNOV Office Visit (WALKMN ) -------- SILVER ANDUJAR ([id number]) 1985 F Date Time Provider Department 07/15/23 1:45 PM PRISCILLA ALBERT WALKPA During your visit today, we recorded the following information about you: Temperature Pulse Blood pressure 98 degrees 89/minute 131/81 Priscilla Albert APRN.FOUNDER 07/15/2023 4:34 PM Signed CC: Headache and [...] seek emergency care Gayatri Tony, MSN, RN-BC INTERACTIVE VIDEO TECHNICIAN Student Gayatri Tony, student nurse practitioner, and myself have interviewed the patient. I re-performed the HPI and physical exam. Assessment and plan was developed together. I spent a total of 30 minutes on the date of the service which included preparing to see the patient, [id number] patient care, completing clinical documentation, obtaining and/or reviewing separately obtained history, performing a medically appropriate examination, counseling and educating the patient/family/caregiver , and ordering medications, tests, or procedures. Priscilla Albert APRN.FOUNDER Referring Provider: SELF [[id number]] Allergies As of Date: 07/15/2023 Noted Allergy Reaction BUSPIRONE 04/21/2018 14 - Other: See Comments OXYCODONE-ACETAMINOPHEN 04/21/2018 9 - Itching SULFAMETHOXAZOLE-TRIMETH OPRIM 04/21/2018 10 - Anaphylaxis Date Reviewed: 07/15/2023 Reviewed by: Priscilla Albert APRN.FOUNDER - Fully Assessed Reason for Visit: Headache [...] Status:Closed by PRISCILLA ALBERT on 07/15/23 Normal [facility] US DUP LOWER EXTREMITY RIGHT VENon 08-26-2022 [...] Henrry Sweeney MD 08/26/22 Final result Normal [facility] Comment on above: Order Comment: [...] Henrry Sweeney MD 08/26/22 Final result Normal [facility] Comment on above: Order Comment: [...] RICARDO WEBB Date: 2022-06-28 14:32 Normal [facility] CULTURE URINEon 12-22-2021 CULTURE URINE Culture Observations : MODERATE GROWTH OF MIXED SKIN CHARLY. NO POTENTIAL PATHOGENS SEEN. Normal [facility] Comment on above: Performed By: #### U RCX #### [facility] [address] [place] [address] Dr. Reba Swain CBC W MANUAL DIFFon 12-22-19 22 ATYPICAL LYMPH # Normal [facility] Comment on above: Performed By: #### C BCMAN #### [facility] [address] [address] [address] Reba Swain ATYPICAL LYMPH % Normal [facility] Comment on above: Performed By: #### C BCMAN #### [facility] [address] [place] [address] Dr. Reba Swain BAND # Normal 0.0-0.3 [facility] Comment on above: Performed By: #### C BCMAN #### [facility] [address] [address] [address] Reba Swain BAND % Normal 0-5 [facility] Comment on above: Performed By: #### C BCMAN #### [facility] [address] [place] [address] Dr. Reba Swain BASOM # 0.08 103/ul Normal 0.00-0.10 [facility] Comment on above: Performed By: #### C BCMAN #### [facility] [address] [place] [address] Dr. Reba Swain BASOM % 1.0 % Normal 0.2-2.0 [facility] Comment on above: Performed By: #### C BCNIKI #### [facility] [address] [place] [address] Dr. Reba Swain BLAST # Normal [facility] Comment on above: Performed By: #### C TRAMAINE #### [facility] [address] [place] [address] Dr. Reba Swain BLAST % Normal [facility] Comment on above: Performed By: #### C BCNIKI #### [facility] [address] [place] [address] Dr. Reba Swain CORRECTED WBC Normal 4.0-11.[address] [facility] Comment on above: Performed By: #### C BCNIKI #### [facility] [address] [place] [address] Dr. Reba Swain EOS # 0.08 103/ul Normal 0.00-0.70 [facility] Comment on above: Performed By: #### C BCNIKI #### [facility] [address] [place] [address] Dr. Reba Swain EOS% 1.0 % Normal 0.9-7.0 [facility] Comment on above: Performed By: #### C BCMAN #### [facility] [address] [place] [address] Dr. Reba Swain HCT 42.3 % Normal 36.0-48.0 [facility] Comment on above: Performed By: #### C TRAMAINE #### [facility] [address] [place] [address] Dr. Reba Swain HGB 14.0 g/dl Normal 12.0-16.0 [facility] Comment on above: Performed By: #### C TRAMAINE #### [facility] [address] [place] [address] Dr. Reba Swain LYMPHM # 0.83 103/ul Critically low 1.20-3.80 [facility] Comment on above: Performed By: #### C TRAMAINE #### [facility] [address] [place] [address] Dr. Reba Swain LYMPHM% 10.0 % Critically low 20.5-60.0 [facility] Comment on above: Performed By: #### Lexie REDD #### [facility] [address] [place] [address] Dr. Reba Swain MCH 30.6 pg Normal 26.7-34.0 [facility] Comment on above: Performed By: #### Lexie REDD #### [facility] [address] [place] [address] Dr. Reba Swain MCHC 33.1 g/dl Normal 29.9-35.2 [facility] Comment on above: Performed By: #### Lexie REDD #### [facility] [address] [place] [address] Dr. Reba Swain MCV 92.4 fL Normal 81.0-99.0 [facility] Comment on above: Performed By: #### Lexie REDD #### [facility] [address] [place] [address] Dr. Rbea Swain METAMYELOCYTE # Normal [facility] Comment on above: Performed By: #### Lexie REDD #### [facility] [address] [place] [address] Dr. Reba Swain METAMYELOCYTE % Normal [facility] Comment on above: Performed By: #### C TRAMAINE #### [facility] [address] [place] [address] Dr. Reba Swain MONOM# 0.25 103/ul Critically low 0.30-0.80 [facility] Comment on above: Performed By: #### C TRAMAINE #### [facility] [address] [address] [address] Reba Swain MONOM% 3.0 % Normal 1.7-12.0 [facility] Comment on above: Performed By: #### C TRAMAINE #### [facility] [address] [place] [address] Dr. Reba Swain MPV 10.3 fL Normal 9.5-13.5 [facility] Comment on above: Performed By: #### C TRAMAINE #### [facility] [address] [place] [address] Dr. Reba Swain MYELOCYTE # Normal [facility] Comment on above: Performed By: #### C TRAMAINE #### [facility] [address] [place] [address] Dr. Reba Swain MYELOCYTE % Normal [facility] Comment on above: Performed By: #### Lexie REDD #### [facility] [address] [place] [address] Dr. Reba Swain NRBC Normal [facility] Comment on above: Performed By: #### C TRAMAINE #### [facility] [address] [place] [address] Dr. Reba Swain PLT 190 103/ul Normal 150-450 [facility] Comment on above: Performed By: #### C TRAMAINE #### [facility] [address] [place] [address] Dr. Reba Swain RBC 4.58 106/ul Normal 4.20-5.40 [facility] Comment on above: Performed By: #### C TRAMAINE #### [facility] [address] [place] [address] Dr. Reba Swain RDW 13.3 % Normal 11.0-15.0 [facility] Comment on above: Performed By: #### C TRAMAINE #### [facility] [address] [place] [address] Dr. Reba Swain SEG # 7.06 103/ul Critically high 1.40-6.50 [facility] Comment on above: Performed By: #### C TRAMAINE #### [facility] [address] [place] [address] Dr. Reba Swain SEG % 85.0 % Critically high 43.0-75.0 [facility] Comment on above: Performed By: #### Lexie REDD #### [facility] [address] [place] [address] Dr. Reba Swain WBC 8.3 103/ul Normal 4.0-11.0 [facility] Comment on above: Performed By: #### Lexie REDD #### [facility] [address] [place] [address] HEAD WO CONon [...] Joe SO Date: 2021-12-21 19:59 Normal [facility] ER URINE PROFILEon 2 Bilirubin Ql (U) Negative Normal NEGATIVE [facility] Comment on above: Performed By: #### ESTEPHANIA HUTCHISON #### [facility] [address] [place] [address] Dr. Reba Swain Clarity (U) CLEAR Normal CLEAR [facility] Comment on above: Performed By: #### ESTEPHANIA HUTCHISON #### [facility] [address] [place] [address] Dr. Reba Swain Color (U) YELLOW Normal YELLOW [facility] Comment on above: Performed By: #### ESTEPHANIA HUTCHISON #### [facility] [address] [place] [address] Dr. Reba CHAUDHRY A micrscopic examina tion will be performed if indicated. Normal [facility] Comment on above: Performed By: #### Amy CONTRERAS UMICRO #### [facility] [address] [place] [address] Dr. Reba Swain Glucose Ql (U) Negative Normal NEGATIVE [facility] Comment on above: Performed By: #### Amy CONTRERAS UMICRO #### [facility] [address] [address] [address] Reba Swain Hemoglobin Ql (U) Negative Normal NEGATIVE [facility] Comment on above: Performed By: #### Amy CONTRERAS UMICRO #### [facility] [address] [place] [address] Dr. Reba Swain Ketones Ql (U) Negative Normal NEGATIVE [facility] Comment on above: Performed By: #### Amy CONTRERAS UMICRO #### [facility] [address] [place] [address] Dr. Reba Swain LEUKOCYTES Negative Normal NEGATIVE [facility] Comment on above: Performed By: #### Amy CONTRERAS UMICRO #### [facility] [address] [place] [address] Dr. Reba Swain Nitrite Ql (U) Negative Normal NEGATIVE [facility] Comment on above: Performed By: #### Amy CONTRERAS UMICRO #### [facility] [address] [place] [address] Dr. Reba Swain pH (U) 7.0 [pH] Normal 5-9 [facility] Comment on above: Performed By: #### Amy CONTRERAS UMICRO #### [facility] [address] [address] [address] Reba Swain Protein (U) [Mass/Vol] 100 mg/dL Abnormal NEGATIVE/ TRACE [facility] Comment on above: Performed By: #### Amy CONTRERAS UMICRO #### [facility] [address] [place] [address] Dr. Reba Swain SPEC GRAVITY 1.025 Normal 1.005-<=1.025 [facility] Comment on above: Performed By: #### ESTEPHANIA HUTCHISON #### [facility] [address] [address] [address] Reba Swain UR MICRO IND INDICATED Normal [facility] Comment on above: Performed By: #### E WESLEY CONTRERASRO #### [facility] [address] [place] [address] Dr. Reba Swain Urobilinogen Qn (U) 0.2 {Tamia'U}/dL Normal 0.2 - 1.0 [facility] Comment on above: Performed By: #### WESLEY HUTCHISONRO #### [facility] [address] [address] [address] Reba Swain PROF CHEM 8 (BAS METB)on Anion gap [Moles/Vol] 14.8 mmol/L Normal [facility] Comment on above: Performed By: #### B MP #### [facility] [address] [place] [address] Dr. Reba Swain Calcium [Mass/Vol] 8.5 mg/dL Normal 8.5-10.1 [facility] Comment on above: Performed By: #### B MP #### [facility] [address] [place] [address] Dr. Reba Swain Chloride [Moles/Vol] 100 mmol/L Normal 98-107 [facility] Comment on above: Performed By: #### B MP #### [facility] [address] [place] [address] Dr. Reba Swain CO2 [Moles/Vol] 23.7 mmol/L Normal 21.0-32.0 [facility] Comment on above: Performed By: #### B MP #### [facility] [address] [place] [address] Dr. Reba Swain Creatinine [Mass/Vol] 0.79 mg/dL Normal 0.55-1.02 [facility] Comment on above: Performed By: #### B MP #### [facility] [address] [place] [address] Dr. Reba Swain EGFR-AF UGANDAN >60 Normal >=60 [facility] Comment on above: Performed By: #### B MP #### [facility] [address] [address] [address] Reba Swain EGFR-NON AF UGANDAN >60 Normal >=60 [facility] Comment on above: Performed By: #### B MP #### [facility] [address] [address] [address] Reba Swain Glucose [Mass/Vol] 107 mg/dL Critically high 74-106 [facility] Comment on above: Performed By: #### B MP #### [facility] [address] [address] [address] Reba Swain Potassium [Moles/Vol] 3.5 mmol/L Normal 3.5-5.1 [facility] Comment on above: Performed By: #### B MP #### [facility] [address] [address] [address] Reba Swain Sodium [Moles/Vol] 135 mmol/L Critically low 136-145 [facility] Comment on above: Performed By: #### B MP #### [facility] [address] [address] [address] Reba Swain Urea nitrogen [Mass/Vol] 9.0 mg/dL Normal 7.0-18.0 [facility] Comment on above: Performed By: #### B MP #### [facility] [address] [address] [address] Reba Swain Urea nitrogen/Creatinin e [Mass ratio] 11.4 mg/mg Normal [facility] Comment on above: Performed By: #### B MP #### [facility] [address] [address] [address] Reba Swain TROPONIN, HIGH SENSITIVITYon 12-21-2021 HSTROP 4.3 pg/mL Normal 4.0-51.3 [facility] Comment on above: Result Comment: CUT- OFF POINTS HAVE BEEN ESTABLISHED BASED ON THE FOURTH UNIVERSAL DEFINITIONS OF MYOCARDIAL INFARCTION. THE UPPER REFERENCE LIMIT (URL) OF TROPONIN, DEFINED THE 99TH PERCENTILE OF cTnI DISTRIBUTION IN A REFERENCE POPULATION, HAS BEEN CONFIRMED THE DECISION THRESHOLD FOR [place] DIAGNOSIS. Performed By: #### H STROPN #### [facility] [address] [place] [address] Dr. Reba Swain URINE MICROSCOPIC ONLYon BACTERIA SMALL Abnormal NONE SEEN [facility] Comment on above: Performed By: #### Amy CONTRERAS UMICRO #### [facility] [address] [place] [address] Dr. Reba Swain Bacteria identified Cx Nom (U) INDICATED Normal [facility] Comment on above: Performed By: #### Amy CONTRERAS, UMICRO #### [facility] [address] [place] [address] Dr. Reba Swain CAST SEEN Abnormal NONE SEEN [facility] Comment on above: Performed By: #### E DIANE UMICRO #### [facility] [address] [place] [address] Dr. Reba Swain Crystals LM Nom (Urine sed) NONE SEEN Normal NONE SEEN [facility] Comment on above: Performed By: #### Amy CONTRERAS UMICRO #### [facility] [address] [place] [address] Dr. Reba Swain Epithelial cells LM Ql (Urine sed) FEW Abnormal NONE SEEN /RARE [facility] Comment on above: Performed By: #### Amy CONTRERAS UMICRO #### [facility] [address] [place] [address] Dr. Reba Swain MUCOUS TRACE Abnormal NONE SEEN [facility] Comment on above: Performed By: #### Amy CONTRERAS UMICRO #### [facility] [address] [place] [address] Dr. Reba Swain RBC 0-2 Normal 0-2 [facility] Comment on above: Performed By: #### Amy CONTRERAS UMICRO #### [facility] [address] [place] [address] Dr. Reba Swain WBC 2-5 Abnormal NONE SEEN [facility] Comment on above: Performed By: #### Amy CONTRERAS UMICRO #### [facility] [address] [place] [address] Dr. Reba Swain XR lumbar spine min 4V*on XR lumbar spine min 4V* [facility] Main [place] [address] [place] [address] XRay Report Signed Patient: Silver Andujar MR#: [id number] : 1985 Acct:[id number] Age/Sex: 35 / F ADM Date: 01/14/21 Loc: [place] Room: Type: [facility] CLI Attending Dr: Madonna Torrez NP Ordering [...] M.D.01/14/2021 6:46 PM Dictation Location: [place] [address] Transcribed By: [facility] 01/14/211845 Dictated By: Henrry Sweeney Jr, MD 01/14/211840 Signed By: 01/14/211845 Normal [facility] [id number] 02-16-2020 SARS-CoV-2 Not Detected Normal Not Detected [facility] Comment on above: Result Comment: (NOT E) Testing was performed using the Aptima SARS-CoV-2 assay. This test was developed and its performance characteristics determined by [employer]. This test has not been FDA cleared [...] result in this assay. Performed At: = [facility] [place] [id number] Macy Ortega MD Ph:[phone] Performed By: #### A COV #### [facility] [address] [place] [address] Cupola Mechanic: Bronson Webster MD Vital Signs Date Time Vital Sign Value Performing Clinician Facility 07-15-2023 13:44-0500 Body temperature 98.01 [degF] Priscilla Albert APRN.FOUNDER Work Phone: [facility] 07-15-2023 13:44-0500 Diastolic blood pressure 81 mm[Hg] Priscilla Albert APRN.FOUNDER Work Phone: [facility] 07-15-2023 13:44-0500 Heart rate 89 /min Priscilla Albert APRN.FOUNDER Work Phone: [facility] 07-15-2023 13:44-0500 Systolic blood pressure 131 mm[Hg] Priscilla Albert APRN.FOUNDER Work Phone: [facility] 12-29-2019 05:16-0400 BMI (Body Mass Index) 37.24 kg/m2 Raheel Renetta Kaminski [place], [place] 12-29-2019 05:16-0400 Body Temperature 97.3 [degF] Raheel Renetta [facility], [place] 12-29-2019 05:16-0400 Body weight 121.11 kg [place], [place] 12-29-2019 05:16-0400 BP Diastolic 65 mm[Hg] Raheel Hopper [place] , [place] 12-29-2019 05:16-0400 BP Systolic 114 mm[Hg] Raheel Hopper [place] , [place] 12-29-2019 05:16-0400 Height 180.3 cm [facility] [place] [place] 12-29-2019 05:16-0400 Pulse (Heart Rate) 60 /min Raheel Hopper [facility] [place] 12-29-2019 05:16-0400 Pulse Oximetry 97 % Raheel [place], [place] 12-29-2019 05:16-0400 Respiratory Rate 18 /min Raheel [facility], [place] Encounters Encounter Date Encounter Type Care Provider Facility Start: 08-16-2024 End: 08-16-2024 ambulatory Laurel ALEXANDER Facility:[facility] Start: 06-25-2024 End: 06-25-2024 ambulatory Rony [...] Start: 07-15-2023 End: 07-15-2023 ambulatory HENRRY VARGAS Facility:[facility] Start: 07-15-2023 End: 07-15-2023 Patient encounter procedure Priscilla Albert FOUNDER Work Phone: [facility] Comment on above: Primary hypertension (Primary Dx) Start: 08-26-2022 End: 08-26-2022 Emergency department patient visit CARISSA BRADFORD [facility] Start: 06-28-2022 End: 06-28-2022 ambulatory MARIE HENRY Facility:[facility] Start: 12-21-2021 End: 12-21-2021 ambulatory MARIE HENRY Facility:[facility] Start: 12-11-2021 ambulatory MARIE HENRY Facility: [facility] Start: 09-27-2021 End: 09-27-2021 ambulatory JOSHUA BAILEY Facility:[facility] Start: 08-11-2021 End: 08-11-[address] MARJAN HAILE Facility:[facility] Start: 09-22-2020 End: 09-22-2020 Patient encounter procedure Jaz Adri Iglesias Work Phone: [facility] Start: 08-25-2020 End: 08-25-2020 Patient encounter procedure Jean-Claude Kendrickjenni [facility] Start: 02-12-2020 End: 02-13-2020 Patient encounter procedure BESSIE MOSES [facility] Start: 02-12-2020 End: 02-12-2020 Subsequent hospital visit by physician [facility] Start: 12-29-2019 End: 12-29-2019 Emergency department patient visit RAHEEL RENETTA [facility] Start: 12-29-2019 End: 12-29-2019 Emergency department patient visit Raheel Hopper Work Phone: [facility] ED Comment [...] 08-17-2026 Tetanus vaccination Tetanus: Every 1 0yrs [facility] Start: 08-17-2026 Urine microalbumin profile DTaP,Tdap,Td Vaccine (2 - Td or Tdap) [facility] Start: 04-15-2023 Covid-19 Vaccine ( season) Covid-19 Vaccine ( season) [facility] Start: 04-15-2023 Influenza vaccination Influenza Vacc ine (#1) [facility] Start: 08-15-2022 Depression Assessment Depression Ass essment [facility] Start: 09-22-2020 COVID-19 Vaccine (Moderna) (#2) COVID-19 Vaccine (Moderna) (#2) [facility] Start: 09-22-2020 End: 09-22-2020 Immunization 09/22/2020 Immunization Primary Care Jaz Iglesias MD [address] [facility] [address] [place] [address] [facility] [employer] [facility] Start: 04-15-2020 Influenza vaccination [place], [place] Start: 04-15-2020 Influenza vaccinatio n given Sequential Influenza Vaccine (#1) [facility] Start: 2013 HPV Testing HPV Testing [facility] Start: 2004 Pap Testing Pap Testing [facility] Start: 2001 Hepatitis C antibody , confirmatory test Hepatitis C Screening [facility] Start: 2001 Hepatitis C Screening Hepatitis C Sc dedra [facility] Start: 2001 HIV Screening HIV Screening [facility] Start: 1998 HIV screening HIV Screening [facility] Start: 1995 Adolescent depressio n screening assessment Depression Screening (PHQ9) [facility] Start: 1989 Pneumococcal vaccination Pneumococcal Vaccine (1 - PCV) [facility] Start: 1986 History and physical examination, annual for health maintenance Wellness Visit [facility] Start: 1983 Creatinine measurement Creatinine mo [place], [place] Start: 1983 Hepatitis B Vaccine (1 of 3 - 3-dose series) Hepatitis B Vaccine (1 of 3 - 3-dose series) [facility] Start: 1983 Potassium monitoring Potassium monit oring [place], [place] Start: 1983 Screening for malign ant neoplasm of cervix Pap Smear [facility] Start: 1983 Tetanus vaccination Tetanus: Every 1 0yrs [facility] End: 02-12-2020 Covid-19 Ambulatory Covid-19 Ambulatory Lab Routine Once for 1 Occurrences starting 02/12/2020 until 02/12/2020 [place], [place] Comment on above: Once for 1 Occurrenc es starting 02/12/2020 until 02/12/2020 Covid-19 Ambulatory Covid-19 Amb ulatory Lab Routine 02/12/2020 7:08 AM EDT [place], [place] Immunizations Immunization Date Immunization Notes Care Provider Olamide chapa 06-04-2022 influenza virus vacc ine, unspecified formulation Priscilla Albert APRN.FOUNDER Work Phone: [facility] 09-22-2020 Moderna SARS-CoV-2 Vaccination Lizbeth Mcclendon [facility] 08-25-2020 Moderna SARS-CoV-2 Vaccination Jean-Claude Kendrickjenni [facility] Payers Date Payer Category Payer Unknown [id number] 2019 Unknown 1985 Unknown [id number] 2.16.8 [id number] 1983 Unknown [id number] 2.16.84 [id number] 1983 Unknown [id number] 2.16.84 0.1.299384.3.579.2.593 1983 Unknown [id number] 2.16.84 0.1.741223.3.579.2.593 1983 Unknown [id number] 2.16.84 0.1.958473.3.579.2.593 1983 Unknown [id number] 2.16.84 0.1.130666.3.579.2.593 1983 Unknown [id number] 2.16. 840.1.299287.3.579.2.196 1983 Unknown [id number] 2.16. 840.1.102609.3.579.2.196 1983 Unknown [id number] 2.16. 840.1.741668.3.579.2.196 1983 Unknown [id number] 2.16. 840.1.521371.3.579.2.196 1983 Unknown [id number] 2.16. 840.1.288510.3.579.2.196 1983 Unknown [id number] 2.16. 840.1.364060.3.579.2.196 1983 Unknown [id number] 2.16. 840.1.115977.3.579.2.196 1983 Unknown [id number] 2.16. 840.1.749768.3.579.2.196 1983 Unknown [id number] 2.16. [id number] 1961 Self-pay [id number] Self-pay Social History Date Type Detail Facility Start: 12-29-2019 End: 07-15-2023 Tobacco smoking status NHIS Current every day smoker [facility] Start: 12-29-2019 End: 07-15-2023 Cigarettes smoked current (pack per day) - Reported [place], [place] Start: 12-29-2019 Alcohol intake Lifetime non-d giovanny (finding) [place] Start: 12-29-2019 History SDOH Alcohol Frequency 1 [place], [place] Start: 1985 Sex Assigned At Not on file M [place] Exposure to SARS-CoV -2 (event) Unable to assess [place] Exposure to SARS-CoV -2 (event) Not sure [facility] History of tobacco use Cigarette Smoker [facility] Start: 07-15-2023 Tobacco use and exposure User of smokeless tobacco [facility] Start: 07-15-2023 Tobacco use panel [facility] Progress note 07-15-2023 Note Date & Type Note Facility 07-15-2023 Note HNO ID: [id number] Author: Priscilla Albert APRN.FOUNDER Service: ? Author Type: Nurse Practitioner Type: [...] seek emergency care Gayatri Tony, MSN, RN- INTERACTIVE VIDEO TECHNICIAN Student Gayatri Tony, student nurse practitioner, and myself have interviewed the patient. I re-performed the HPI and physical exam. Assessment and plan was developed together. I spent a total of 30 minutes on the date of the service which included preparing to see the patient, [id number] patient care, completing clinical documentation, obtaining and/or reviewing separately obtained history, performing a medically appropriate examination, counseling and educating the patient/family/caregiver, and ordering medications, tests, or procedures. Priscilla Albert APRN.PABLO [facility] History of Present illness Narrative 07-15-2023 Priscilla Albert APRN.FOUNDER - 07/15/2023 1:49 PM EST Note Date [...] seek emergency care Gayatri Tony, MSN, RN-BC INTERACTIVE VIDEO TECHNICIAN Student Gayatri Tony, student nurse practitioner, and myself have interviewed the patient. I re-performed the HPI and physical exam. Assessment and plan was developed together. I spent a total of 30 minutes on the date of the service which included preparing to see the patient, [id number] patient care, completing clinical documentation, obtaining and/or reviewing separately obtained history, performing a medically appropriate examination, counseling and educating the patient/family/caregiver, and ordering medications, tests, or procedures. Priscilla Albert APRN.FOUNDER documented in this encounter [facility] Clinical Note 09-27-2021 Note Date & [...] by: RICARDO WEBB Date: 2021-09-27 13:13 [facility] Evaluation note Note Date & Type Note Facility Evaluation note Diagnosis Primary hypertension- Primary Unspecified essential hypertension documented in this encounter [facility] Discharge Instructions * Instructions* Crystal Little MD - 12/29/2019 Thank you for visiting [facility] Emergency Department. You need to call No primary care provider on file. to make an appointment as directed for follow up. Should you have any questions regarding your care or further treatment, please call [facility] Emergency Department at [phone]. 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 Living Will [...] section and content) DATE CREATED AUTHOR 03/06/2020 [facility] DATE CREATED AUTHOR AUTHOR'S ORGANIZ ATION 01/30/2021 [facility] DATE CREATED AUTHOR AUTHOR'S ORGANIZ ATION 06/30/2022 [facility] DATE CREATED AUTHOR AUTHOR'S ORGANIZ ATION 08/26/2022 [facility] DATE CREATED AUTHOR AUTHOR'S ORGANIZ ATION 07/18/2023 [facility] DATE CREATED AUTHOR AUTHOR'S ORGANIZ ATION 07/03/2024 [facility] DATE CREATED AUTHOR AUTHOR'S ORGANIZ ATION 08/17/2024 [facility] Source Comments (unrecognize d section and content) In the event this informatio n is protected by the Federal Confidentiality of Alcohol and Drug Abuse Patient Records regulations: The Federal rules restrict any use of the information to criminally investigate or prosecute any alcohol or drug abuse patient.[facility] Care Teams (unrecognized sec tion and content) Replenishment Buyer 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 [employer] [facility]. provides no warranty or guarantee of the accuracy or completeness of information in this document.
--- NOTE | 2024-11-01 08:08 | P.CN_ITS ---
Consult Note: HPI Data of Consult Patient: known to practice within the last 3 years Requesting Physician: Lorna Herring NP Primary Care Provider: MARIE HENRY Consult Narrative cc:: CC: Lorna Herring NP Review of Systems ROS Status of ROS 10 or more systems reviewed and unremark able except as noted in history and below [facility] Medical History (Updated 11/01/24 @ 08:08 by Lorna Herring NP) Osteoarthritis ?M19.90 - Unspecified osteoarthritis, unspecified site (ICD-10) Acid reflux ?K21.9 - Gastro-esophageal reflux disease without esophagitis (ICD-10) Sleep apnea ?G47.30 - Sleep apnea, unspecified (ICD-10) HTN (hypertension) ?I10 - Essential (primary) hypertension (ICD-10) Surgical History Hx of cholecystectomy ?Z90.49 - Acquired absence of other specified parts of digestive tract (ICD- 10) H/O section ?Z98.891 - History of uterine scar from previous surgery (ICD-10) History of hysterectomy ?Z90.710 - Acquired absence of both cervix and uterus (ICD-10) Social History Smoking status: Current every day smoker Little interest or pleasure in doing things: not at all Feeling down, depressed, or hopeless: not at all Meds Home Medications and Allergies Home Medications ?Medication ?Instructions ?Recorded ?Confirmed ?Type hydrochlorothiazide 25 mg tablet 25 mg PO DAILY 06/16/23 07/26/24 History lisinopril 20 mg tablet 20 mg PO DAILY 06/16/23 07/26/24 History metoprolol succinate 25 mg 25 mg PO DAILY 06/16/23 07/26/24 History tablet,extended release 24 hr biotin 10,000 mcg capsule 10,000 mcg PO DAILY 07/18/23 07/26/24 History topiramate 50 mg tablet (Topamax) 50 mg PO BID 08/22/23 07/26/24 History acetaminophen 300 mg-codeine 30 mg 1 tab PO BID PRN pain #45 tabs 03/28/24 07/26/24 Rx tablet hydroxyzine HCl 25 mg tablet 25 mg PO TID PRN anxiety 04/04/24 07/26/24 History phentermine 37.5 mg tablet 37.5 mg PO DAILY 05/28/24 07/26/24 History (Adipex-P) baclofen 10 mg tablet See Rx Instructions .Route 06/05/24 07/26/24 Rx .COMPLEX #60 tabs meloxicam 15 mg tablet 15 mg PO DAILY #30 tabs 06/05/24 07/26/24 Rx bupropion HCl 150 mg 24 hr tablet, 150 mg PO DAILY 06/25/24 07/26/24 History extended release (Wellbutrin XL) escitalopram oxalate 10 mg tablet 10 mg PO DAILY 06/25/24 07/26/24 History (Lexapro) gabapentin 600 mg tablet 300 mg PO BID 07/26/24 History ondansetron 4 mg disintegrating 4 mg PO Q6H PRN nausea and 08/07/24 Rx tablet vomiting #12 tabs acetaminophen 300 mg-codeine 30 mg See Rx Instructions .Route 09/05/24 Rx tablet .COMPLEX PRN pain #20 tabs gabapentin 300 mg capsule 300 mg PO BID #60 caps 09/05/24 Rx acetaminophen 300 mg-codeine 30 mg See Rx Instructions .Route 10/18/24 Rx tablet .COMPLEX PRN pain #20 tabs Allergies Allergy/AdvReac Type Severity Reaction Status Date / Time buspirone (From BuSpar) Allergy Severe Migraine Verified 08/07/24 14:48 sulfamethoxazole (From Allergy Severe Anaphylaxis Verified 08/07/24 14:48 Bactrim) trimethoprim (From Bactrim) Allergy Severe Anaphylaxis Verified 08/07/24 14:48 venlafaxine (From Effexor) Allergy Severe syncope Verified 08/07/24 14:48 oxycodone (From Percocet) AdvReac Severe Anxiety Verified 08/07/24 14:48 Exam Constitutional Documenting provider has reviewed patient's vital signs: yes Common normals: no apparent distress, oriented x3, healthy appearing, alert and well nourished General appearance: cooperative HENMT Common normals: normocephalic, hearing grossly normal bilaterally and moist oral mucous membranes Head and scalp: normocephalic Eye Common normals: PERRL Pupil: PERRL Neck & C-Spine Common normals: full ROM General: normal visual inspection Chest Common normals: inspection of chest normal Respiratory Common normals: normal respiratory effort, no retractions and no use of accessory muscles Neuro Common normals: oriented x3, CN's II-XII intact bilaterally, moves all extremities, no focal motor deficits, no sensory deficits noted and deep tendon reflexes 2+ bilaterally Sensorium/orientation: alert Motor exam: strength 5/5 throughout and no movement abnormalities noted Psych Common normals: mental status grossly normal, thought process normal, c ooperative, affect normal, speech normal and activity/motor behavior normal Speech: normal speech Thought process: normal thought process Results Additional Findings Additional findings: If on a controlled substance or opioids, I have checked an [place]AR[place] report on this patient and there are no aberrancies noted in the prescribing history.??If on a controlled substance or opioid a drug screen was completed and reviewed within the last year, and if there has not been a drug screen completed we ordered one today to monitor higher risk, state monitored pain medication use. As part of providing excellent, safe, comprehensive care, the following was completed at our patient's visit: 1. A medication reconciliation and review to ensure accurate knowledge of current/active medications, including asking our patients to inform us about any [id number] medications or herbal remedies/nutritional supplements/alternative remedies. 2. A review to specifically ensure our patients have had annual screening for screening for depression, screening for tobacco use, and screening for unhealthy alcohol use. For concerning screenings had a discussion with the patient, provided patient education, and recommended follow-up with primary care provider when appropriate. If patient noted with a risk of falling, they received education on strength, gait, and balance training to prevent future risk of falling. Portions of this note may have been carried over from the previous visit and updated as appropriate. Please note this office utilizes paper charting in addition to the electronic medical record. A list of current medications, vitals, and PMH is available there as the clinical staff outside of myself do not have access to [employer] charting during the clinic day operations. As part of providing quality comprehensive care the current medications, vitals, and PMH were reviewed in the paper chart. Assessment and Plan Assessment and Plan (1) Sacroiliitis: Assessment and Plan: longstanding history of left sided low back and SIJ pain. previous imaging does not reveal significant OA changes of SIJ The patient has had over 3 months of moderate to severe low back and SIJ pain with functional impairment and inadequate response to conservative care including NSAIDS (unless there are contraindication such as concurrent blood thinners), multiple oral or topical pain medications, and home exercise program/physical therapy.? Patient has completed >6 weeks of guided home exercise program and/or formal physical therapy program without relief of their symptoms.?? The Oswestry Disability Index was completed, and the patient scored a 32%.? The patient noted the following:?? moderate to severe pain, pain with ADLs, pain with sitting, pain with standing and walking We discussed the risks and benefits of the procedure with the patient, and we are NOT planning on using sedation as outlined in the guidelines from Medicare unless there is a documented reason that sedation would be strongly recommended.?? ?The procedure will be completed with fluoroscopic guidance.? (2) Lumbar stenosis with neurogenic claudication: (3) Lumbar spondylosis: (4) Chronic prescription opiate use: Assessment and Plan: I feel these medications are improving the patient's quality of life and allow them to tolerate activities of daily living as well as participate in recreational activity.? The patient does not report intolerable side effects. The patient is NOT opioid naive and non-pharmacologic and non-opioid treatment has failed to significantly relieve the patient's pain and improve functionality. The patient has a diagnosis that is related to a somatic or visceral pain etiology. ? ?? I reviewed with the patient the potential risks and side effects with the use of? opioid medications including but not limited to respiratory depression,? sedation, and even . Within the last 12 months I have verified the patient has access to naloxone should? these effects occur. The patient was advised to let? their family know they had Naloxone in case they would need to administer? the medication. I advised the patient to avoid the use of any other? sedation substances including alcohol, THC, and benzodiazepines while? taking opioid medications due to the risk of compounding side effects and? detrimental outcomes. within the last 12 months I have reviewed the [employer], pain treatment agreement and urine drug screen.? ?? A drug screen was completed within the last year, and no aberrancies were noted regarding their use of controlled substances. The patient understands they are subject to the terms and conditions of the pain contract that they have signed. ? ?? I have checked an [place]AR[place] report on this patient today and there are no aberrancies noted in the prescribing history.? (5) Myofascial low back pain: (6) Myalgia: Plan left SIJ injection under fluoroscopy continue current medications, risks vs benefits reviewed. continues to find moderate pain relief and improvement in functional ability ongoing. denies side effects update UDS for medication monitoring f/u 2 weeks after injection
== END 2024-11-01 07:51 | disposition home or self-care (01) ==
LOC: PM 07:50
PROVIDERS: PCP Nurse Practitioner Family; Visit Provider Nurse Practitioner
DX: M46.1 Sacroiliitis, not elsewhere classified (principal); M48.062 Spinal stenosis, lumbar region with neurogenic claudication; M47.816 Spondylosis without myelopathy or radiculopathy, lumbar region; Z79.891 Long term (current) use of opiate analgesic; M79.18 Myalgia, other site
CPT/HCPCS: G0463

== ENCOUNTER 2024-11-02 19:52 | Emergency (ER) | payer SELFPAY ==
--- OUTSIDE RECORDS SUMMARY | 2024-11-02 19:57 | XMS_ITS | CCD ---
Author Organization [facility] Informat ion Partnership [facility] Care Team Providers Care Tankage Supervisor Name Role Phone Unavailable Primary Care [...] / oxyCODONE Drug Allergy 04-21-20 18 Itching [place], [place] (3 sources) busPIRone Drug Allergy 04-21-20 18 Other: See Comments [place], [place] (3 sources) Sulfamethoxazole / Trimethoprim Drug Allergy 04-21-20 18 Anaphylaxis [place], [place] (2 sources) Acetaminophen / oxyCODONE; 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: [Percocet] Drug Allergy 08-15-19 15 [facility] (2 sources) Adhesive agent Drug allergy (disorder) 11-28-19 15 [facility] (3 sources) busPIRone; 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: [BuSpar] Drug Allergy 08-07-20 16 [facility] (2 sources) Latex; 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: [Latex] Drug allergy (disorder) [facility] (1 source) Sulfamethoxazole / Trimethoprim Drug Allergy [facility] (1 source) venlafaxine Drug Allergy [facility] (1 source) Adhesive bandage; 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: [Adhesive Bandage] Propensity to adverse reactions (disorder) [facility] (1 source) Sulfamethoxazole / Trimethoprim; 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: [Bactrim] Drug Allergy [facility] Medications Current Medications Medication Drug [...] 06-30-2022 Chronic Other aftercare (1 source) Other mcfp (current) drug therapy; 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: [OTH LONG-TERM CURRENT DRUG THERAPY] Onset: 06-30-2022 Episodic Other [...] Test Name Value Interpretation Reference Range Facility [facility] 07-15-2023 CNOV Office Visit (WALKMN ) -------- SILVER ANDUJAR ([id number]) 1985 F Date Time Provider Department 07/15/23 1:45 PM PRISCILLA ALBERT WALKNM During your visit today, we recorded the following information about you: Temperature Pulse Blood pressure 98 degrees 89/minute 131/81 Priscilla Albert APRN.EDUCATION INTERN 07/15/2023 4:34 PM Signed CC: Headache and [...] seek emergency care Gayatri Tony, MSN, RN-BC EDITOR GREETING CARD Student Gayatri Tony, student nurse practitioner, and myself have interviewed the patient. I re-performed the HPI and physical exam. Assessment and plan was developed together. I spent a total of 30 minutes on the date of the service which included preparing to see the patient, [id number] patient care, completing clinical documentation, obtaining and/or reviewing separately obtained history, performing a medically appropriate examination, counseling and educating the patient/family/caregiver , and ordering medications, tests, or procedures. Priscilla Albert APRN.EDUCATION INTERN Referring Provider: SELF [[id number]] Allergies As of Date: 07/15/2023 Noted Allergy Reaction BUSPIRONE 04/21/2018 14 - Other: See Comments OXYCODONE-ACETAMINOPHEN 04/21/2018 9 - Itching SULFAMETHOXAZOLE-TRIMETH OPRIM 04/21/2018 10 - Anaphylaxis Date Reviewed: 07/15/2023 Reviewed by: Priscilla Albert APRN.EDUCATION INTERN - Fully Assessed Reason for Visit: Headache [...] Status:Closed by PRISCILLA ALBERT on 07/15/23 Normal [facility] US DUP LOWER EXTREMITY RIGHT VENon [...] RICARDO WEBB Date: 2022-06-28 14:32 Normal [facility] CULTURE URINEon 12-22-2021 CULTURE URINE Culture Observations : MODERATE GROWTH OF MIXED SKIN CHARLY. NO POTENTIAL PATHOGENS SEEN. Normal [facility] Comment on above: Performed By: #### U RCX #### [facility] [address] [place] [address] Dr. Reba Swain CBC W MANUAL DIFFon 12-22-19 22 ATYPICAL LYMPH # Normal The [facility] Comment on above: Performed By: #### C BCMAN #### [facility] [address] [address] [address] Reba Swain ATYPICAL LYMPH % Normal The [facility] Comment on above: Performed By: #### C BCMAN #### [facility] [address] [place] [address] Dr. Reba Swain BAND # Normal 0.0-0.3 [facility] Comment on above: Performed By: #### C BCMAN #### [facility] [address] [address] [address] Reba Swain BAND % Normal 0-5 [facility] Comment on above: Performed By: #### C BCMAN #### [facility] [address] [place] [address] Dr. Reba Swain BASOM # 0.08 103/ul Normal 0.00-0.10 [facility] Comment on above: Performed By: #### C BCMAN #### [facility] [address] [place] [address] Dr. Reba Swain BASOM % 1.0 % Normal 0.2-2.0 [facility] Comment on above: Performed By: #### C BCNIKI #### [facility] [address] [place] [address] Dr. Reba Swain BLAST # Normal [facility] Comment on above: Performed By: #### C TRAMAINE #### [facility] [address] [place] [address] Dr. Reba Swain BLAST % Normal [facility] Comment on above: Performed By: #### C BCNIKI #### [facility] [address] [place] [address] Dr. Reba Swain CORRECTED WBC Normal 4.0-11.0 [facility] Comment on above: Performed By: #### C BCNIKI #### [facility] [address] [place] [address] Dr. Reba Swain EOS # 0.08 103/ul Normal 0.00-0.70 [facility] Comment on above: Performed By: #### C BCNIKI #### [facility] [address] [place] [address] Dr. Reba Swain EOS% 1.0 % Normal 0.9-7.0 [facility] Comment on above: Performed By: #### C BCMAN #### [facility] [address] [place] [address] Dr. Reba Swain HCT 42.3 % Normal 36.0-48.0 [facility] Comment on above: Performed By: #### C TRAMAINE #### [facility] [address] [place] [address] Dr. Reba Swain HGB 14.0 g/dl Normal 12.0-16.0 [facility] Comment on above: Performed By: #### C TRAMAINE #### [facility] [address] [place] [address] Dr. Reba Swain LYMPHM # 0.83 103/ul Critically low 1.20-3.80 [facility] Comment on above: Performed By: #### C TRAMAINE #### [facility] [address] [place] [address] Dr. Reba Swain LYMPHM% 10.0 % Critically low 20.5-60.0 [facility] Comment on above: Performed By: #### Lexie REDD #### [facility] [address] [place] [address] Dr. Reba Swain MCH 30.6 pg Normal 26.7-34.0 [facility] Comment on above: Performed By: #### Lexie REDD #### [facility] [address] [place] [address] Dr. Reba Swain MCHC 33.1 g/dl Normal 29.9-35.2 [facility] Comment on above: Performed By: #### Lexie REDD #### [facility] [address] [place] [address] Dr. Reba Swain MCV 92.4 fL Normal 81.0-99.0 [facility] Comment on above: Performed By: #### Lexie REDD #### [facility] [address] [place] [address] Dr. Reba Swain METAMYELOCYTE # Normal [facility] Comment on above: Performed By: #### Lexie REDD #### [facility] [address] [place] [address] Dr. Reba Swain METAMYELOCYTE % Normal [facility] Comment on above: Performed By: #### C TRAMAINE #### [facility] [address] [place] [address] Dr. Reba Swain MONOM# 0.25 103/ul Critically low 0.30-0.80 [facility] Comment on above: Performed By: #### C TRAMAINE #### [facility] [address] [address] [address] Reba Swain MONOM% 3.0 % Normal 1.7-12.0 [facility] Comment on above: Performed By: #### C TRAMAINE #### [facility] [address] [place] [address] Dr. Reba Swain MPV 10.3 fL Normal 9.5-13.5 [facility] Comment on above: Performed By: #### C TRAMAINE #### [facility] [address] [place] [address] Dr. Reba Swain MYELOCYTE # Normal [facility] Comment on above: Performed By: #### C TRAMAINE #### [facility] [address] [place] [address] Dr. Reba Swain MYELOCYTE % Normal [facility] Comment on above: Performed By: #### Lexie REDD #### [facility] [address] [place] [address] Dr. Reba Swain NRBC Normal [facility] Comment on above: Performed By: #### C TRAMAINE #### [facility] [address] [place] [address] Dr. Reba Swain PLT 190 103/ul Normal 150-450 [facility] Comment on above: Performed By: #### C TRAMAINE #### [facility] [address] [place] [address] Dr. Reba Swain RBC 4.58 106/ul Normal 4.20-5.40 [facility] Comment on above: Performed By: #### C TRAMAINE #### [facility] [address] [place] [address] Dr. Reba Swain RDW 13.3 % Normal 11.0-15.0 [facility] Comment on above: Performed By: #### C TRAMAINE #### [facility] [address] [place] [address] Dr. Reba Swain SEG # 7.06 103/ul Critically high 1.40-6.50 [facility] Comment on above: Performed By: #### C TRAMAINE #### [facility] [address] [place] [address] Dr. Reba Swain SEG % 85.0 % Critically high 43.0-75.0 [facility] Comment on above: Performed By: #### Lexie REDD #### [facility] [address] [place] [address] Dr. Reba Swain WBC 8.3 103/ul Normal 4.0-11.0 [facility] Comment on above: Performed By: #### Lexie REDD #### [facility] [address] [place] [address] HEAD WO CONon [...] Joe SO Date: 2021-12-21 19:59 Normal [facility] ER URINE PROFILEon 2 Bilirubin Ql (U) Negative Normal NEGATIVE [facility] Comment on above: Performed By: #### ESTEPHANIA HUTCHISON #### [facility] [address] [place] [address] Dr. Reba Swain Clarity (U) CLEAR Normal CLEAR [facility] Comment on above: Performed By: #### ESTEPHANIA HUTCHISON #### [facility] [address] [place] [address] Dr. Reba Swain Color (U) YELLOW Normal YELLOW [facility] Comment on above: Performed By: #### ESTEPHANIA HUTCHISON #### [facility] [address] [place] [address] Dr. Reba CHAUDHRY A micrscopic examina tion will be performed if indicated. Normal [facility] Comment on above: Performed By: #### Amy CONTRERAS UMICRO #### [facility] [address] [place] [address] Dr. Reba Swain Glucose Ql (U) Negative Normal NEGATIVE [facility] Comment on above: Performed By: #### Amy CONTRERAS UMICRO #### [facility] [address] [address] [address] Reba Swain Hemoglobin Ql (U) Negative Normal NEGATIVE The [facility] Comment on above: Performed By: #### Amy CONTRERAS UMICRO #### [facility] [address] [place] [address] Dr. Reba Swain Ketones Ql (U) Negative Normal NEGATIVE [facility] Comment on above: Performed By: #### Amy CONTRERAS UMICRO #### [facility] [address] [place] [address] Dr. Reba Swain LEUKOCYTES Negative Normal NEGATIVE [facility] Comment on above: Performed By: #### Amy CONTRERAS UMICRO #### [facility] [address] [place] [address] Dr. Reba Swain Nitrite Ql (U) Negative Normal NEGATIVE [facility] Comment on above: Performed By: #### Amy CONTRERAS UMICRO #### [facility] [address] [place] [address] Dr. Reba Swain pH (U) 7.0 [pH] Normal 5-9 [facility] Comment on above: Performed By: #### Amy CONTRERAS UMICRO #### [facility] [address] [address] [address] Reba Swain Protein (U) [Mass/Vol] 100 mg/dL Abnormal NEGATIVE/ TRACE [facility] Comment on above: Performed By: #### Amy CONTRERAS UMICRO #### [facility] [address] [place] [address] Dr. Reba Swain SPEC GRAVITY 1.025 Normal 1.005-<=1.025 [facility] Comment on above: Performed By: #### ESTEPHANIA HUTCHISON #### [facility] [address] [address] [address] Reba Swain UR MICRO IND INDICATED Normal [facility] Comment on above: Performed By: #### E WESLEY CONTRERASRO #### [facility] [address] [place] [address] Dr. Reba Swain Urobilinogen Qn (U) 0.2 {Tamia'U}/dL Normal 0.2 - 1.0 [facility] Comment on above: Performed By: #### WESLEY HUTCHISONRO #### [facility] [address] [address] [address] Reba Swain PROF CHEM 8 (BAS METB)on Anion gap [Moles/Vol] 14.8 mmol/L Normal [facility] Comment on above: Performed By: #### B MP #### [facility] [address] [place] [address] Dr. Reba Swain Calcium [Mass/Vol] 8.5 mg/dL Normal 8.5-10.1 [facility] Comment on above: Performed By: #### B MP #### [facility] [address] [place] [address] Dr. Reba Swain Chloride [Moles/Vol] 100 mmol/L Normal 98-107 [facility] Comment on above: Performed By: #### B MP #### [facility] [address] [place] [address] Dr. Rbea Swain CO2 [Moles/Vol] 23.7 mmol/L Normal 21.0-32.0 [facility] Comment on above: Performed By: #### B MP #### [facility] [address] [place] [address] Dr. Reba Swain Creatinine [Mass/Vol] 0.79 mg/dL Normal 0.55-1.02 [facility] Comment on above: Performed By: #### B MP #### [facility] [address] [place] [address] Dr. Reba Swain EGFR-AF COMORAN >60 Normal >=60 [facility] Comment on above: Performed By: #### B MP #### [facility] [address] [address] [address] Reba Swain EGFR-NON AF COMORAN >60 Normal >=60 [facility] Comment on above: Performed By: #### B MP #### [facility] [address] [address] [address] Reba Swain Glucose [Mass/Vol] 107 mg/dL Critically high 74-106 [facility] Comment on above: Performed By: #### B MP #### [facility] [address] [address] [address] Reba Swain Potassium [Moles/Vol] 3.5 mmol/L Normal 3.5-5.1 [facility] Comment on above: Performed By: #### B MP #### [facility] [address] [address] [address] Reba Swain Sodium [Moles/Vol] 135 mmol/L Critically low 136-145 [facility] Comment on above: Performed By: #### B MP #### [facility] [address] [address] [address] Reba Swain Urea nitrogen [Mass/Vol] 9.0 mg/dL Normal 7.0-18.0 [facility] Comment on above: Performed By: #### B MP #### [facility] [address] [address] [address] Reba Swain Urea nitrogen/Creatinin e [Mass ratio] 11.4 mg/mg Normal [facility] Comment on above: Performed By: #### B MP #### [facility] [address] [address] [address] Reba Swain TROPONIN, HIGH SENSITIVITYon 12-21-2021 HSTROP 4.3 pg/mL Normal 4.0-51.3 [facility] Comment on above: Result Comment: CUT- OFF POINTS HAVE BEEN ESTABLISHED BASED ON THE FOURTH UNIVERSAL DEFINITIONS OF MYOCARDIAL INFARCTION. THE UPPER REFERENCE LIMIT (URL) OF TROPONIN, DEFINED THE 99TH PERCENTILE OF cTnI DISTRIBUTION IN A REFERENCE POPULATION, HAS BEEN CONFIRMED THE DECISION THRESHOLD FOR DC DIAGNOSIS. Performed By: #### H STROPN #### [facility] [address] [place] [address] Dr. Reba Swain URINE MICROSCOPIC ONLYon BACTERIA SMALL Abnormal NONE SEEN [facility] Comment on above: Performed By: #### Amy CONTRERAS UMICRO #### [facility] [address] [place] [address] Dr. Reba Swain Bacteria identified Cx Nom (U) INDICATED Normal [facility] Comment on above: Performed By: #### Amy CONTRERAS, UMICRO #### [facility] [address] [place] [address] Dr. Reba Swain CAST SEEN Abnormal NONE SEEN [facility] Comment on above: Performed By: #### E DIANE UMICRO #### [facility] [address] [place] [address] Dr. Reba Swain Crystals LM Nom (Urine sed) NONE SEEN Normal NONE SEEN [facility] Comment on above: Performed By: #### Amy CONTRERAS UMICRO #### [facility] [address] [place] [address] Dr. Reba Swain Epithelial cells LM Ql (Urine sed) FEW Abnormal NONE SEEN /RARE [facility] Comment on above: Performed By: #### Amy CONTRERAS UMICRO #### [facility] [address] [place] [address] Dr. Reba Swain MUCOUS TRACE Abnormal NONE SEEN [facility] Comment on above: Performed By: #### Amy CONTRERAS UMICRO #### [facility] [address] [place] [address] Dr. Reba Swain RBC 0-2 Normal 0-2 [facility] Comment on above: Performed By: #### Amy CONTRERAS UMICRO #### [facility] [address] [place] [address] Dr. Reba Swain WBC 2-5 Abnormal NONE SEEN [facility] Comment on above: Performed By: #### Amy CONTRERAS UMICRO #### [facility] [address] [place] [address] Dr. Reba Swain XR lumbar spine min 4V*on XR lumbar spine min 4V* [facility] [place] [address] [place] [address] XRay Report Signed Patient: Silver Andujar MR#: [id number] : 1985 Acct:[id number] Age/Sex: 35 / F ADM Date: 01/14/21 Loc: [place] Room: Type: [facility] CLI Attending Dr: Madonna Torrez [...] Sweeney Jr., M.D.01/14/2021 6:46 PM Dictation Location: [place] [address] Transcribed By: [facility] 01/14/211845 Dictated By: Henrry Sweeney Jr, MD 01/14/211840 Signed By: 01/14/211845 Normal [facility] [id number] 02-16-2020 SARS-CoV-2 Not Detected Normal Not Detected [facility] Comment on above: Result Comment: (NOT E) Testing was performed using the Aptima SARS-CoV-2 assay. This test was developed and its performance characteristics determined by [employer]. This test has not been FDA cleared [...] result in this assay. Performed At: = [facility] [place] [id number] Macy Ortega MD Ph:[phone] Performed By: #### A COV #### [facility] [address] [place] [address] Roving Technician: Bronson Webster MD Vital Signs Date Time Vital Sign Value Performing Clinician Facility 07-15-2023 13:44-0500 Body temperature 98.01 [degF] Priscilla Albert APRN.EDUCATION INTERN Work Phone: [facility] 07-15-2023 13:44-0500 Diastolic blood pressure 81 mm[Hg] Priscilla Albert APRN.EDUCATION INTERN Work Phone: [facility] 07-15-2023 13:44-0500 Heart rate 89 /min Priscilla Albert APRN.EDUCATION INTERN Work Phone: [facility] 07-15-2023 13:44-0500 Systolic blood pressure 131 mm[Hg] Priscilla Albert APRN.EDUCATION INTERN Work Phone: [facility] 12-29-2019 05:16-0400 BMI (Body Mass Index) 37.24 kg/m2 Raheel Renetta Kaminski [place], [place] 12-29-2019 05:16-0400 Body Temperature 97.3 [degF] Rhaeel Renetta [facility], [place] 12-29-2019 05:16-0400 Body weight 121.11 kg [place], [place] 12-29-2019 05:16-0400 BP Diastolic 65 mm[Hg] Raheel Hopper [facility] , [place] 12-29-2019 05:16-0400 BP Systolic 114 mm[Hg] Raheel Hopper [facility] , [place] 12-29-2019 05:16-0400 Height 180.3 cm Raheel Hopper [facility] [place], [place] 12-29-2019 05:16-0400 Pulse (Heart Rate) 60 /min Raheel Hopper [facility] [place] 12-29-2019 05:16-0400 Pulse Oximetry 97 % Raheel [place], [place] 12-29-2019 05:16-0400 Respiratory Rate 18 /min Raheel [facility], [place] Encounters Encounter Date Encounter Type Care Provider Facility Start: 08-16-2024 End: 08-16-2024 ambulatory Laurel ALEXANDER Facility:[facility] Start: 06-25-2024 End: 06-25-2024 ambulatory Rony [...] Start: 07-15-2023 End: 07-15-2023 ambulatory HENRRY VARGAS Facility:[facility] Start: 07-15-2023 End: 07-15-2023 Patient encounter procedure Priscilla Albert EDUCATION INTERN Work Phone: [facility] Comment on above: Primary hypertension (Primary Dx) Start: 08-26-2022 End: 08-26-2022 Emergency department patient visit CARISSA BRADFORD [facility] Start: 06-28-2022 End: 06-28-2022 ambulatory MARIE HENRY Facility:[facility] Start: 12-21-2021 End: 12-21-2021 ambulatory MARIE HENRY Facility:[facility] Start: 12-11-2021 ambulatory MARIE HENRY Facility: [facility] Start: 09-27-2021 End: 09-27-2021 ambulatory JOSHUA BAILEY Facility:[facility] Start: 08-11-2021 End: 08-11-[address] MARJAN HAILE Facility:[facility] Start: 09-22-2020 End: 09-22-2020 Patient encounter procedure Jaz Adri Iglesias Work Phone: [facility] Start: 08-25-2020 End: 08-25-2020 Patient encounter procedure Jean-Claude Kendrickjenni [facility] Start: 02-12-2020 End: 02-13-2020 Patient encounter procedure BESSIE MOSES [facility] Start: 02-12-2020 End: 02-12-2020 Subsequent hospital visit by physician [facility] Start: 12-29-2019 End: 12-29-2019 Emergency department patient visit RAHEEL RENETTA [facility] Start: 12-29-2019 End: 12-29-2019 Emergency department patient visit Raheel Hopper Work Phone: [facility] Comment on above: Exposure [...] 08-17-2026 Tetanus vaccination Tetanus: Every 1 0yrs [facility] Start: 08-17-2026 Urine microalbumin profile DTaP,Tdap,Td Vaccine (2 - Td or Tdap) [facility] Start: 04-15-2023 Covid-19 Vaccine ( season) Covid-19 Vaccine ( season) [facility] Start: 04-15-2023 Influenza vaccination Influenza Vacc ine (#1) [facility] Start: 08-15-2022 Depression Assessment Depression Ass essment [facility] Start: 09-22-2020 COVID-19 Vaccine (Moderna) (#2) COVID-19 Vaccine (Moderna) (#2) [facility] Start: 09-22-2020 End: 09-22-2020 Immunization 09/22/2020 Immunization Primary Care Jaz Iglesias MD [address] [facility] [address] [place] [address] [facility] [employer] [facility] Start: 04-15-2020 Influenza vaccination [place], [place] Start: 04-15-2020 Influenza vaccinatio n given Sequential Influenza Vaccine (#1) [facility] Start: 2013 HPV Testing HPV Testing [facility] Start: 2004 Pap Testing Pap Testing [facility] Start: 2001 Hepatitis C antibody , confirmatory test Hepatitis C Screening [facility] Start: 2001 Hepatitis C Screening Hepatitis C Sc dedra [facility] Start: 2001 HIV Screening HIV Screening [place] Start: 1998 HIV screening HIV Screening [facility] Start: 1995 Adolescent depressio n screening assessment Depression Screening (PHQ9) [facility] Start: 1989 Pneumococcal vaccination Pneumococcal Vaccine (1 - PCV) [facility] Start: 1986 History and physical examination, annual for health maintenance Wellness Visit [facility] Start: 1983 Creatinine measurement Creatinine mo [place], [place] Start: 1983 Hepatitis B Vaccine (1 of 3 - 3-dose series) Hepatitis B Vaccine (1 of 3 - 3-dose series) [facility] Start: 1983 Potassium monitoring Potassium monit oring [place], [place] Start: 1983 Screening for malign ant neoplasm of cervix Pap Smear [facility] Start: 1983 Tetanus vaccination Tetanus: Every 1 0yrs [facility] End: 02-12-2020 Covid-19 Ambulatory Covid-19 Ambulatory Lab Routine Once for 1 Occurrences starting 02/12/2020 until 02/12/2020 [place], [place] Comment on above: Once for 1 Occurrenc es starting 02/12/2020 until 02/12/2020 Covid-19 Ambulatory Covid-19 Amb ulatory Lab Routine 02/12/2020 7:08 AM EDT [place], [place] Immunizations Immunization Date Immunization Notes Care Provider Olamide chapa 06-04-2022 influenza virus vacc ine, unspecified formulation Priscilla Albert APRN.EDUCATION INTERN Work Phone: [facility] 09-22-2020 Moderna SARS-CoV-2 Vaccination Lizbeth Mcclendon [facility] 08-25-2020 Moderna SARS-CoV-2 Vaccination Jean-Claude Kendrickjenni [facility] Payers Date Payer Category Payer Unknown [id number] 2019 Unknown 1985 Unknown [id number] 2.16.8 [id number] 1985 Unknown [id number] 2.16.84 0.1.024961.3.579.2.593 1985 Unknown [id number] 2.16.84 0.1.032612.3.579.2.593 1983 Unknown [id number] 2.16.84 0.1.970516.3.579.2.593 1983 Unknown [id number] 2.16.84 0.1.972155.3.579.2.593 1983 Unknown [id number] 2.16.84 0.1.070988.3.579.2.593 1983 Unknown [id number] 2.16. 840.1.574646.3.579.2.196 1983 Unknown [id number] 2.16. 840.1.092861.3.579.2.196 1983 Unknown [id number] 2.16. 840.1.510420.3.579.2.196 1983 Unknown [id number] 2.16. 840.1.420203.3.579.2.196 1983 Unknown [id number] 2.16. 840.1.307563.3.579.2.196 1983 Unknown [id number] 2.16. 840.1.976804.3.579.2.196 1983 Unknown [id number] 2.16. 840.1.895457.3.579.2.196 1983 Unknown [id number] 2.16. 840.1.019368.3.579.2.196 1985 Unknown [id number] 2.16. 840.1.711746.3.579.2.196 1961 Self-pay [id number] Self-pay Social History Date Type Detail Facility Start: 12-29-2019 End: 07-15-2023 Tobacco smoking status NHIS Current every day smoker [facility] Start: 12-29-2019 End: 07-15-2023 Cigarettes smoked current (pack per day) - Reported [place], [place] Start: 12-29-2019 Alcohol intake Lifetime non-d giovanny (finding) [place], [place] Start: 12-29-2019 History SDOH Alcohol Frequency 1 [place], [place] Start: 1985 Sex Assigned At Not on file M [place], [place] Exposure to SARS-CoV -2 (event) Unable to assess [place] Exposure to SARS-CoV -2 (event) Not sure [facility] History of tobacco use Cigarette Smoker [facility] Start: 07-15-2023 Tobacco use and exposure User of smokeless tobacco [facility] Start: 07-15-2023 Tobacco use panel [facility] Progress note 07-15-2023 Note Date & Type Note Facility 07-15-2023 Note HNO ID: [id number] Author: Priscilla Albert APRN.EDUCATION INTERN Service: ? Author Type: Nurse Practitioner Type: [...] seek emergency care Gayatri Tony, MSN, RN- EDITOR GREETING CARD Student Gayatri Tony, student nurse practitioner, and myself have interviewed the patient. I re-performed the HPI and physical exam. Assessment and plan was developed together. I spent a total of 30 minutes on the date of the service which included preparing to see the patient, [id number] patient care, completing clinical documentation, obtaining and/or reviewing separately obtained history, performing a medically appropriate examination, counseling and educating the patient/family/caregiver, and ordering medications, tests, or procedures. Priscilla Albert APRN.PABLO [facility] History of Present illness Narrative 07-15-2023 Priscilla Albert APRN.EDUCATION INTERN - 07/15/2023 1:49 PM EST Note Date [...] seek emergency care Gayatri Tony, MSN, RN-BC EDITOR GREETING CARD Student Gayatri Tony, student nurse practitioner, and myself have interviewed the patient. I re-performed the HPI and physical exam. Assessment and plan was developed together. I spent a total of 30 minutes on the date of the service which included preparing to see the patient, [id number] patient care, completing clinical documentation, obtaining and/or reviewing separately obtained history, performing a medically appropriate examination, counseling and educating the patient/family/caregiver, and ordering medications, tests, or procedures. Priscilla Albert APRN.EDUCATION INTERN documented in this encounter [facility] Clinical Note 09-27-2021 Note Date [...] by: RICARDO WEBB Date: 2021-09-27 13:13 [facility] Evaluation note Note Date & Type Note Facility Evaluation note Diagnosis Primary hypertension- Primary Unspecified essential hypertension documented in this encounter [facility] Discharge Instructions * Instructions* Crystal Little MD - 12/29/2019 Thank you for visiting [facility] Emergency Department. You need to call No primary care provider on file. to make an appointment as directed for follow up. Should you have any questions regarding your care or further treatment, please call [facility] Emergency Department at [phone]. 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 DATE CREATED AUTHOR AUTHOR'S ORGANIZ ATION 07/18/2023 [facility] DATE CREATED AUTHOR AUTHOR'S ORGANIZ ATION 07/03/2024 [facility] DATE CREATED AUTHOR AUTHOR'S ORGANIZ ATION 08/17/2024 [facility] Source Comments (unrecognize d section and content) In the event this informatio n is protected by the Federal Confidentiality of Alcohol and Drug Abuse Patient Records regulations: The Federal rules restrict any use of the information to criminally investigate or prosecute any alcohol or drug abuse patient.[facility] Care Teams (unrecognized sec tion and content) Tankage Supervisor Relationship Specialty Start Date End Date [...] BE BASED ON THE PRIMARY CLINICAL RECORDS. [employer] [facility]. provides no warranty or guarantee of the accuracy or completeness of information in this document.
[2024-11-02 20:00] VITALS: BP 146/70; PULSE 84; TEMP 36.7; O2SAT 96; BMI 38.1
--- NOTE | 2024-11-02 20:05 | ED.GENADUL1 ---
HPI HPI - General Adult General Chief complaint: Extremity Injury, Lower Stated complaint: R ANKLE/HEEL PAIN Time Seen by Provider: 11/02/24 19:59 Source: patient Mode of arrival: Wheelchair History of Present Illness HPI narrative: 39-year-old female presents for right heel pain. She has had it for few days and there was no injury or unusual activity. She points to the posterior aspect of her heel to indicate where it hurts the most. She does not have pain in the rest of the foot or in the calf. She had a heel spur on her other foot in the past but it did not require surgery. Related Data Home Medications ?Medication ?Instructions ?Recorded ?Confirmed hydrochlorothiazide 25 mg tablet 25 mg PO DAILY 06/16/23 07/26/24 lisinopril 20 mg tablet 20 mg PO DAILY 06/16/23 07/26/24 metoprolol succinate 25 mg 25 mg PO DAILY 06/16/23 07/26/24 tablet,extended release 24 hr biotin 10,000 mcg capsule 10,000 mcg PO DAILY 07/18/23 07/26/24 hydroxyzine HCl 25 mg tablet 25 mg PO TID PRN anxiety 04/04/24 07/26/24 bupropion HCl 150 mg 24 hr tablet, 150 mg PO DAILY 06/25/24 07/26/24 extended release (Wellbutrin XL) escitalopram oxalate 10 mg tablet 10 mg PO DAILY 06/25/24 07/26/24 (Lexapro) gabapentin 600 mg tablet 300 mg PO BID 07/26/24 Previous Rx's ?Medication ?Instructions ?Recorded acetaminophen 300 mg-codeine 30 mg 1 tab PO BID PRN pain #45 tabs 03/28/24 tablet baclofen 10 mg tablet See Rx Instructions .Route 06/05/24 .COMPLEX #60 tabs meloxicam 15 mg tablet 15 mg PO DAILY #30 tabs 06/05/24 ondansetron 4 mg disintegrating 4 mg PO Q6H PRN nausea and 08/07/24 tablet vomiting #12 tabs acetaminophen 300 mg-codeine 30 mg See Rx Instructions .Route 09/05/24 tablet .COMPLEX PRN pain #20 tabs gabapentin 300 mg capsule 300 mg PO BID #60 caps 09/05/24 acetaminophen 300 mg-codeine 30 mg See Rx Instructions .Route 10/18/24 tablet .COMPLEX PRN pain #20 tabs hydrocodone 5 mg-acetaminophen 325 1 tab PO Q6H PRN pain 5 days #20 11/02/24 mg tablet tabs Allergies Allergy/AdvReac Type Severity Reaction Status Date / Time buspirone (From BuSpar) Allergy Severe Migraine Verified 08/07/24 14:48 sulfamethoxazole (From Allergy Severe Anaphylaxis Verified 08/07/24 14:48 Bactrim) trimethoprim (From Bactrim) Allergy Severe Anaphylaxis Verified 08/07/24 14:48 venlafaxine (From Effexor) Allergy Severe syncope Verified 08/07/24 14:48 oxycodone (From Percocet) AdvReac Severe Anxiety Verified 08/07/24 14:48 Opioid HPI Opioid Management Most Recent Opioid Data: Last Pain Scale 8 11/02/24 20:14 11/02/24 Last ED Pain Assessment 11/02/24 20:14 Review of Systems ROS Narrative A ten point review of systems is negative except as noted above. [facility] Medical History (Updated 11/02/24 @ 21:06 by Warren Savage MD) Osteoarthritis ?M19.90 - Unspecified osteoarthritis, unspecified site (ICD-10) Acid reflux ?K21.9 - Gastro-esophageal reflux disease without esophagitis (ICD-10) Sleep apnea ?G47.30 - Sleep apnea, unspecified (ICD-10) HTN (hypertension) ?I10 - Essential (primary) hypertension (ICD-10) Surgical History Hx of cholecystectomy ?Z90.49 - Acquired absence of other specified parts of digestive tract (ICD-10) H/O section ?Z98.891 - History of uterine scar from previous surgery (ICD-10) History of hysterectomy ?Z90.710 - Acquired absence of both cervix and uterus (ICD-10) Social History Smoking status: Current every day smoker Little interest or pleasure in doing things: several days Feeling down, depressed, or hopeless: not at all Exam Narrative Exam Narrative: Nurses note and vital signs reviewed and patient is not hypoxic. General: The patient appears well and in no apparent distress. Patient is resting comfortably on cart. Skin: Warm, dry, no pallor noted. There is no rash noted. Head: Normocephalic, atraumatic Eye: Normal conjunctiva, no drainage Ears, Nose, Mouth, and Throat: oral mucosa is moist. Nares patent. Cardiovascular: Regular Rate and Rhythm Respiratory: Patient is in no distress, no accessory muscle use Back: non-tender GI: Soft and nontender Musculoskeletal: The right foot is examined. She has tenderness in the posterior heel area but there is no erythema or rash or abrasions. The ankle is not swollen or tender. The rest of her foot is nontender and dorsalis pedis pulse is 2+. Neurological: A&O, normal speech Psychiatric: Cooperative Constitutional Vital Signs, click to edit/add: Last Vital Signs Temp 98.0 F 11/02/24 20:00 Pulse 84 11/02/24 20:00 Resp 16 11/02/24 20:00 BP 146/70 H 11/02/24 20:00 Pulse Ox 96 11/02/24 20:00 O2 Del Method Room Air 11/02/24 20:00 Course Vital Signs Vital signs: Vital Signs Temperature 98.0 F 11/02/24 20:00 Pulse Rate 84 11/02/24 20:00 Respiratory Rate 16 11/02/24 20:00 Blood Pressure 146/70 H 11/02/24 20:00 Pulse Oximetry 96 11/02/24 20:00 Oxygen Delivery Method Room Air 11/02/24 20:00 Temperature 98.0 F 11/02/24 20:00 Pulse Rate 84 11/02/24 20:00 Respiratory Rate 16 11/02/24 20:00 Blood Pressure 146/70 H 11/02/24 20:00 Pulse Oximetry 96 11/02/24 20:00 Oxygen Delivery Method Room Air 11/02/24 20:00 Medical Decision Making MDM Narrative Medical decision making narrative: X-ray of her foot on my interpretation shows a moderate-sized heel spur. She will be treated symptomatically with [place] and was referred to Dr. Mcclure. Treatment diagnosis and follow-up were discussed with the patient. Imaging Data Right foot x-ray: My impression: Heel spur Discharge Plan Discharge Chief Complaint: Extremity Injury, Lower Clinical Impression: Heel spur Patient Disposition: Home, Self-Care Prescriptions / Home Meds: New hydrocodone-acetaminophen 5-325 mg tablet 1 tab PO Q6H PRN (Reason: pain) 5 Days Qty: 20 0RF No Action lisinopril 20 mg tablet 20 mg PO DAILY hydrochlorothiazide 25 mg tablet 25 mg PO DAILY metoprolol succinate 25 mg tablet extended release 24 hr 25 mg PO DAILY hydroxyzine HCl 25 mg tablet 25 mg PO TID PRN (Reason: anxiety) baclofen 10 mg tablet See Rx Instructions .ROUTE .COMPLEX Qty: 60 2RF Rx Instructions: 1-2 tabs daily meloxicam 15 mg tablet 15 mg PO DAILY Qty: 30 2RF gabapentin 300 mg capsule 300 mg PO BID Qty: 60 0RF acetaminophen-codeine 300-30 mg tablet See Rx Instructions .ROUTE .COMPLEX PRN (Reason: pain) Qty: 20 0RF Rx Instructions: 1 TABLET PO EVERYDAY PRN #20 TO LAST 30 DAYS bupropion HCl [Wellbutrin XL] 150 mg tablet extended release 24 hr 150 mg PO DAILY escitalopram oxalate [Lexapro] 10 mg tablet 10 mg PO DAILY acetaminophen-codeine 300-30 mg tablet See Rx Instructions .ROUTE .COMPLEX PRN (Reason: pain) Qty: 20 0RF Rx Instructions: 1 TABLET PO EVERYDAY PRN #20 MUST LAST 30 DAYS biotin 10,000 mcg capsule 10,000 mcg PO DAILY acetaminophen-codeine 300-30 mg tablet 1 tab PO BID PRN (Reason: pain) Qty: 45 0RF Rx Instructions: 1 tab po bid #45 ondansetron 4 mg tablet,disintegrating 4 mg PO Q6H PRN (Reason: nausea and vomiting) Qty: 12 0RF gabapentin 600 mg tablet 300 mg PO BID Print Language: Marshallese Instructions: Heel Spur (ED) Referrals: MARIE HENRY [Primary Care Provider] - 1 week Bryan Mcclure DPM [Physician] - 1 week
[2024-11-02] MEDS: HYDROCODONE/ACET 5-325 MG TABLET 1 TAB PO (21:24)
[2024-11-02 21:30] VITALS: BP 119/68; PULSE 79; O2SAT 97
== END 2024-11-02 21:33 | disposition home or self-care (01) ==
PROVIDERS: Emergency Provider Emergency Medicine; PCP Nurse Practitioner Family
DX: M77.31 Calcaneal spur, right foot (principal); Z90.49 Acquired absence of other specified parts of digestive tract; F17.200 Nicotine dependence, unspecified, uncomplicated
CPT/HCPCS: 73630; 99283

== ENCOUNTER 2025-02-18 18:38 | Emergency (ER) | payer OTHER, BC, SELFPAY ==
--- OUTSIDE RECORDS SUMMARY | 2024-08-16 09:56 | XMS_ITS ---
Author Name Auto Generated Organization [facility] Care Team Providers Care Fitness And Wellness Manager Name Role Phone Giashleyitis , Andemely Clifford Attending Unavailable Giedraitis , Andrius Venessa Attending Unavailable Giedraitis , Andrius Vamanda Attending Unavailable Giedraitis , Andrius Venessa Attending Unavailable Giedraitis , Andrius Venessa Attending Unavailable Giedraitis , Nitarius Sharronytsharda Attending Unavailable Laurel ALEXANDER Attending Unavailable PROBLEMS No Problem Records Found PROCEDURES No Procedure Records Found RESULTS No Result Records Found ALLERGIES DATE TYPE / CODE NAME / CODE REACTION SEVERITY SOURCE YASEMIN(SN OMED CT) Percocet [id number] Mild (Qualifier Value) [facility] YASEMIN(SN OMED CT) Latex Unknown [facility] YASEMIN(SN OMED CT) BuSpar [id number] [facility] YASEMIN(SN OMED CT) Bactrim [id number] Severe (Severity Modifier) (Qualifier Value) [facility] YASEMIN(SN OMED CT) No Known Allergies [facility] YASEMIN(SN OMED CT) Adhesive Bandage Unknown [facility] ENCOUNTERS ADMIT/DISCHARGE ACCOUNT NUMBER ADMITTING ENCOUNTER CLASS LOCATION SOURCE 08/16/2024/ 5 [id number] Ambulatory [facility] 06/25/2024/ 4 [id number] [facility]28[facility]2024/ 4 [id number] [facility] [place] [facility] 05/28/2024 [id number] [facility] [place] 04/30/2024/ 4 [id number] [facility]/26[facility]/ 4 [id number] [facility] [place] 03/12/2024/ 4 [id number] [facility] PAYERS ENCOUNTER GUARANTOR PAYER SUBSCRIBER SOURCE 06/25/2024 Silver Bautista: Tyson [place] [address] Primary Insurance:Medical MutualPolicy Number: Effective Date:[id number] Name:[facility] Tomas Nichole [address] [place], [place] [address]WP: Silver Bautista: [id number] Tyson [place] [id number] [facility] 05/28/2024 Silver Bautista: Tyson [place] [id number] Primary Insurance:Medical MutualPolicy Number: Effective Date:[id number] Name:[facility] Tomas Nichole [address] [place] [address]PO: Silver Bautista: [id number] Tyson [place]AH [place], [facility] [facility] 05/28/2024 Silver Bautista: Tyson [place] [id number] Primary Insurance:Medical MutualPolicy Number: Effective Date:[id number] Name:[address] [address]CN: Silver Bautista: [id number] [place] [address] [facility] 04/30/2024 Silver Bautista: [place] [address] Primary Insurance:Self PayPolicy Number: Effective Date:[id number] Name:SP Silver Bautista: [id number] [place] [address] [facility] 03/26/2024 Silver Bautista: [place] [address] Primary Insurance:Medical MutualPolicy Number: Effective Date:[id number] Name:HIGINIO Nichole [address] [place] [id number]: Silver Bautista: [id number] [place] [address] [facility] 03/12/2024 Silver Bautista: [place] [address] Primary Insurance:Self PayPolicy Number: Effective Date:[id number] Name:ALICE Bautista: [id number] [place] [address] [facility]
[2025-02-18 18:42] VITALS: BP 125/70; PULSE 75; TEMP 36.6; O2SAT 97; BMI 37.7
--- NOTE | 2025-02-18 18:59 | XR_ITS ---
[facility] [place] [id number] Patient Name: SILVER ANDUJAR MRN: [id number] date: 1985 Sex: F Assigned Patient Location: ER Current Patient Location: ED.MAIN Accession/Order Number: [id number] Exam Date: 02/18/2025 19:25 Report Date: 02/18/2025 19:26 At the request of: ANGEL ALEXANDER Procedure: XR ankle RT min 3V RIGHT ANKLE - 3 views CLINICAL HISTORY: pain, injury COMPARISON: Right foot x-ray 11/02/2024 FINDINGS: Negative acute fracture or dislocation.. Moderate posterior calcaneal enthesophyte formation. Minimal plantar enthesophyte formation. XR/XR ankle RT min 3V IMPRESSION: NO ACUTE OSSEOUS FINDINGS. Impression dictated by: Trevor Hernandez M.D. 02/18/2025 7:26 PM Dictation Location: [place] [address] Electronically authenticated by: [id number] Y Date: 02/18/2025 19:26
--- NOTE | 2025-02-18 19:54 | ED.LOWEXI1 ---
HPI HPI - Extremity Injury (Lower) General Chief Complaint: Extremity Injury, Lower Stated Complaint: R ANKLE INJURY Time Seen by Provider: 02/18/25 18:41 Source: patient Mode of arrival: walk-in Limitations: no limitations History of Present Illness HPI Narrative: 39-year-old female presents to the emergency department with complaint of right ankle, heel pain. Acute onset while she was at work on February 15, 2025. 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 She ran to stop the wheelchair when she felt an acute pull to the back of her right heel. Has noted some swelling and tenderness since. Pain worsens with ambulating as well. Denies any motor or sensory changes, paresthesias. Quality:?as above Severity:?Mild Timing:?As above, intermittent Context: Injury occurred at work Modifying factors:?Improves with rest. Worsens with palpation or movement Associated symptoms: as above Related Data Home Medications ?Medication ?Instructions ?Recorded ?Confirmed hydrochlorothiazide 25 mg tablet 25 mg PO DAILY 06/16/23 07/26/24 lisinopril 20 mg tablet 20 mg PO DAILY 06/16/23 07/26/24 metoprolol succinate 25 mg 25 mg PO DAILY 06/16/23 07/26/24 tablet,extended release 24 hr biotin 10,000 mcg capsule 10,000 mcg PO DAILY 07/18/23 07/26/24 hydroxyzine HCl 25 mg tablet 25 mg PO TID PRN anxiety 04/04/24 07/26/24 bupropion HCl 150 mg 24 hr tablet, 150 mg PO DAILY 06/25/24 07/26/24 extended release (Wellbutrin XL) escitalopram oxalate 10 mg tablet 10 mg PO DAILY 06/25/24 07/26/24 (Lexapro) gabapentin 600 mg tablet 300 mg PO BID 07/26/24 Previous Rx's ?Medication ?Instructions ?Recorded acetaminophen 300 mg-codeine 30 mg 1 tab PO BID PRN pain #45 tabs 03/28/24 tablet baclofen 10 mg tablet See Rx Instructions .Route 06/05/24 .COMPLEX #60 tabs meloxicam 15 mg tablet 15 mg PO DAILY #30 tabs 06/05/24 ondansetron 4 mg disintegrating 4 mg PO Q6H PRN nausea and 08/07/24 tablet vomiting #12 tabs acetaminophen 300 mg-codeine 30 mg See Rx Instructions .Route 09/05/24 tablet .COMPLEX PRN pain #20 tabs gabapentin 300 mg capsule 300 mg PO BID #60 caps 09/05/24 acetaminophen 300 mg-codeine 30 mg See Rx Instructions .Route 10/18/24 tablet .COMPLEX PRN pain #20 tabs hydrocodone 5 mg-acetaminophen 325 1 tab PO Q6H PRN pain 5 days #20 11/02/24 mg tablet tabs acetaminophen 300 mg-codeine 30 mg 1 tab PO DAILY PRN pain #20 tabs 12/11/24 tablet gabapentin 300 mg capsule 300 mg PO BID #60 caps 12/11/24 acetaminophen 300 mg-codeine 30 mg See Rx Instructions .Route 01/22/25 tablet .COMPLEX PRN pain #20 tabs gabapentin 300 mg capsule 300 mg PO BID #60 caps 01/22/25 meloxicam 15 mg tablet 15 mg PO DAILY #30 tabs 01/22/25 Allergies Allergy/AdvReac Type Severity Reaction Status Date / Time buspirone (From BuSpar) Allergy Severe Migraine Verified 02/18/25 18:42 sulfamethoxazole (From Allergy Severe Anaphylaxis Verified 02/18/25 18:42 Bactrim) trimethoprim (From Bactrim) Allergy Severe Anaphylaxis Verified 02/18/25 18:42 venlafaxine (From Effexor) Allergy Severe syncope Verified 02/18/25 18:42 oxycodone (From Percocet) AdvReac Severe Anxiety Verified 02/18/25 18:42 Opioid HPI Opioid Management Most Recent Pain and Opioid Data: Last Pain Scale 7 Today, 18:42 Last MAR Pain Assessment Today, 20:10 Review of Systems ROS Narrative CONST: Denies activity change, weakness MS: Denies arthralgias.? + Swelling. Denies myalgias SKIN: Denies color change, wound NEURO: Denies numbness, paresthesias, weakness PFSH PFS Medical History Osteoarthritis ?M19.90 - Unspecified osteoarthritis, unspecified site (ICD-10) Acid reflux ?K21.9 - Gastro-esophageal reflux disease without esophagitis (ICD-10) Sleep apnea ?G47.30 - Sleep apnea, unspecified (ICD-10) HTN (hypertension) ?I10 - Essential (primary) hypertension (ICD-10) Surgical History Hx of cholecystectomy ?Z90.49 - Acquired absence of other specified parts of digestive tract (ICD-10) H/O section ?Z98.891 - History of uterine scar from previous surgery (ICD-10) History of hysterectomy ?Z90.710 - Acquired absence of both cervix and uterus (ICD-10) Social History Smoking status: Current every day smoker Little interest or pleasure in doing things: not at all Feeling down, depressed, or hopeless: not at all Exam Narrative Exam Narrative: Vital signs noted Nurses notes reviewed CONST: Nontoxic, well appearing, well nourished, in no distress.? HENT: normocephalic, atraumatic. CV: 2+ palpable right left DP pulse MS: Right foot and ankle: +tenderness,swelling, to the region where the Achilles meets the calcaneus.? No tenderness to the remainder of the ankle, foot. Birmingham's test was negative.? No palpable defect appreciated to the Achilles tendon. No ecchymosis, discoloration, crepitus, deformity, instability.? Active and Passive ROM is full with dorsiflexion, plantarflexion. Strength 5/5 NEURO: Sensory intact throughout and distal to the injury SKIN: intact, warm, dry.? No wound PSYCHIATRIC: normal mood, affect Constitutional Vital Signs, click to edit/add: Last Vital Signs Temp 98 F 02/18/25 18:42 Pulse 75 02/18/25 18:42 Resp 16 02/18/25 18:42 BP 125/70 02/18/25 18:42 Pulse Ox 97 02/18/25 18:42 O2 Del Method Room Air 02/18/25 18:42 Course Reevaluation(s) Reevaluation #1: Splint applied. Discussed with patient results, plan, and disposition. She is agreeable. Time: 19:54 Vital Signs Vital signs: Vital Signs Temperature 98 F 02/18/25 18:42 Pulse Rate 75 02/18/25 18:42 Respiratory Rate 16 02/18/25 18:42 Blood Pressure 125/70 02/18/25 18:42 Pulse Oximetry 97 02/18/25 18:42 Oxygen Delivery Method Room Air 02/18/25 18:42 Temperature 98 F 02/18/25 18:42 Pulse Rate 75 02/18/25 18:42 Respiratory Rate 16 02/18/25 18:42 Blood Pressure 125/70 02/18/25 18:42 Pulse Oximetry 97 02/18/25 18:42 Oxygen Delivery Method Room Air 02/18/25 18:42 MDM - Extremity Injury (Lower) MDM Narrative Medical decision making narrative: This is a pleasant 39-year-old female who presents to the emergency department for evaluation of injury to her right foot, ankle On arrival, afebrile, vital signs stable. On exam, nontoxic, well appearing patient, in no apparent distress. She has tenderness, swelling in the region of her calcaneus, Achilles tendon. No palpable defect noted to the Achilles. Birmingham's test was negative. Range of motion full with dorsiflexion, plantarflexion. Neurovascularly intact. X-ray imaging right ankle, per radiologist reveals negative acute fracture or dislocation. Moderate posterior calcaneal enthesophyte formation. Favor Achilles tendon strain, tendinitis, likely compounded by bone spur Fx/Dislocation less likely based on imaging Achilles tendon rupture less likely based on imaging, negative Birmingham's test, no palpable defect Management Independent interpretation: Right ankle x-ray: No acute fracture or dislocation. Bone spurring noted to the calcaneus Disposition ? The patient was discharged. Patient placed in splint Patient advised rest, ice, elevation, compression Patient advised Ibuprofen/Tylenol as needed for pain Plan: Patient will be discharged to home. Condition at time of disposition: stable. ? Advised to follow up with referral provider, name and number placed on discharge paperwork. Advised to return for any worsening and/or development of new, concerning signs or symptoms PLEASE NOTE: Portions of the medical record may have been produced using electronic travel counselor and may contain errors with respect to translation of words which may not have been identified prior to finalization of the chart. Medical Records Attestation: I reviewed the patient's medical records. Imaging Data Right ankle x-ray: Radiologist's impression: ITS Impressions Ankle X-Ray 02/18/25 18:59 IMPRESSION: NO ACUTE OSSEOUS FINDINGS. Impression dictated by: Trevor Hernandez M.D. 02/18/2025 7:26 PM Dictation Location: [place] [address] Electronically authenticated by: [id number] Y Date: 02/18/2025 19:26 Discharge Plan Discharge Chief Complaint: Extremity Injury, Lower Clinical Impression: Strain of right Achilles tendon, initial encounter Achilles tendinitis Qualifiers: Laterality: right Qualified Code(s): M76.61 - Achilles tendinitis, right leg Patient Disposition: Home, Self-Care Time of Disposition Decision: 19:50 Condition: Good Mode of Transportation: Private Vehicle Prescriptions / Home Meds: No Action lisinopril 20 mg tablet 20 mg PO DAILY hydrochlorothiazide 25 mg tablet 25 mg PO DAILY metoprolol succinate 25 mg tablet extended release 24 hr 25 mg PO DAILY hydroxyzine HCl 25 mg tablet 25 mg PO TID PRN (Reason: anxiety) baclofen 10 mg tablet See Rx Instructions .ROUTE .COMPLEX Qty: 60 2RF Rx Instructions: 1-2 tabs daily meloxicam 15 mg tablet 15 mg PO DAILY Qty: 30 2RF gabapentin 300 mg capsule 300 mg PO BID Qty: 60 0RF acetaminophen-codeine 300-30 mg tablet See Rx Instructions .ROUTE .COMPLEX PRN (Reason: pain) Qty: 20 0RF Rx Instructions: 1 TABLET PO EVERYDAY PRN #20 TO LAST 30 DAYS bupropion HCl [Wellbutrin XL] 150 mg tablet extended release 24 hr 150 mg PO DAILY escitalopram oxalate [Lexapro] 10 mg tablet 10 mg PO DAILY acetaminophen-codeine 300-30 mg tablet See Rx Instructions .ROUTE .COMPLEX PRN (Reason: pain) Qty: 20 0RF Rx Instructions: 1 TABLET PO EVERYDAY PRN #20 MUST LAST 30 DAYS gabapentin 300 mg capsule 300 mg PO BID Qty: 60 0RF acetaminophen-codeine 300-30 mg tablet 1 tab PO DAILY PRN (Reason: pain) Qty: 20 0RF acetaminophen-codeine 300-30 mg tablet See Rx Instructions .ROUTE .COMPLEX PRN (Reason: pain) Qty: 20 0RF Rx Instructions: 1 TABLET PO EVERYDAY PRN #20 MUST LAST 30 DAYS meloxicam 15 mg tablet 15 mg PO DAILY Qty: 30 2RF gabapentin 300 mg capsule 300 mg PO BID Qty: 60 0RF Rx Instructions: MUST LAST 30 DAYS biotin 10,000 mcg capsule 10,000 mcg PO DAILY acetaminophen-codeine 300-30 mg tablet 1 tab PO BID PRN (Reason: pain) Qty: 45 0RF Rx Instructions: 1 tab po bid #45 ondansetron 4 mg tablet,disintegrating 4 mg PO Q6H PRN (Reason: nausea and vomiting) Qty: 12 0RF hydrocodone-acetaminophen 5-325 mg tablet 1 tab PO Q6H PRN (Reason: pain) 5 Days Qty: 20 0RF gabapentin 600 mg tablet 300 mg PO BID Print Language: Greenlandic Instructions: Achilles Tendinitis (ED), Ankle Strain (ED) Referrals: Bryan Mcclure DPM [Physician, Podiatry] - 02/19/25 Discharge Date/Time: 02/18/25 20:22 Procedures ED Ortho Splinting/Casting Orthopedic Splinting/Casting Ankle: Side: right Splint type: Splint leg short Lower extremity injury location: ankle Lower extremity immobilizer: posterior splint Additional comments: ED PROCEDURE NOTE: SPLINTING/STRAPPING Applied a short leg splint/immobilizer to the right ankle of the patient. The area was examined post application and there was good alignment and good neurovascular function of the splinted/immobilized body part following the procedure. The patient tolerated the procedure well. Electronically verified by Bronson Simmons PA-C
[2025-02-18] MEDS: HYDROCODONE/ACET 5-325 MG TABLET 1 TAB PO (20:10)
== END 2025-02-18 20:22 | disposition home or self-care (01) ==
PROVIDERS: Emergency Provider Emergency Medicine; PCP Nurse Practitioner Family
DX: S86.011A Strain of right Achilles tendon, initial encounter (principal); M76.61 Achilles tendinitis, right leg; F17.200 Nicotine dependence, unspecified, uncomplicated; X50.9XXA Other and unspecified overexertion or strenuous movements or postures, initial encounter
CPT/HCPCS: 29515; 73610; 99283

== ENCOUNTER 2025-08-11 16:42 | Emergency (ER) | payer SELFPAY ==
--- OUTSIDE RECORDS SUMMARY | 2024-12-17 04:30 | XMS_ITS ---
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 Name Role Phone Porfirio Howard Primary Care Provider REASON FOR VISIT 1 month f/u review results Medications Medication SIG (Take, Route, Frequency, Duration) Notes Start Date End Date Status Mobic 15MG DAILYActivehydroCHLOROthiazide 25 MG Tablet1 tablet in the morning Orally Once a dayActiveGabapentin 300 MG Capsule1 capsule Orally Once a day2X A DAY ActiveVitamin [id number] 40 MG Capsule Delayed Release1 capsule 1/2 to 1 hour before morning meal Orally Once a dayActiveBiotinActiveWomens Multivitamin ActiveWellbutrin XL 300 MG Tablet Extended Release 24 Hour1 tablet in the morning Orally Once a dayActiveLisinopril 20 MG Tablet1 tablet Orally Once a day ActiveLexapro 20 MG Tablet1 tablet Orally Once a dayActive Encounters Encounter Location Date Provider Diagnosis [facility] [address] [address] 12/17/2024 Porfirio Howard Plan Of Treatment No Information Progress Notes * SILVER ANDUJARDOB:[birth year] (39 yo F)Acc No.[id number]:12/17/2024 Progress Notes Patient: SILVER YARBROUGH Provider:Michael HowardDOB:1985???Age:39 Y???Sex:FemaleDate:12/17/2024Phone:[phone][address] [facility] Subjective: * Chief Complaints: * 1 month f/u review results * Medications: T akingBiotin Womens Multivitamin Vitamin D3 Omeprazole 40 MG Capsule Delayed Release 1 capsule 1/2 to 1 hour before morning meal Orally Once a day Gabapentin 300 MG Capsule 1 capsule Orally Once a day , Notes to Pharmacist: 2X A DAYMobic , Notes to Pharmacist: 15MG DAILYhydroCHLOROthiazide 25 MG Tablet 1 tablet in the morning Orally Once a day Lisinopril 20 MG Tablet 1 tablet Orally Once a day Lexapro 20 MG Tablet 1 tablet Orally Once a day Wellbutrin XL 300 MG Tablet Extended Release 24 Hour 1 tablet in the morning Orally Once a day Taking Biotin Taking Womens Multivitamin Taking Vitamin D3 Taking Omeprazole 40 MG Capsule Delayed Release 1 capsule 1/2 to 1 hour before morning meal Orally Once a day Taking Gabapentin 300 MG Capsule 1 capsule Orally Once a day , Notes to Pharmacist: 2X A DAYTaking Mobic , Notes to Pharmacist: 15MG DAILYTaking hydroCHLOROthiazide 25 MG Tablet 1 tablet in the morning Orally Once a day Taking Lisinopril 20 MG Tablet 1 tablet Orally Once a day Taking Lexapro 20 MG Tablet 1 tablet Orally Once a day Taking Wellbutrin XL 300 MG Tablet Extended Release 24 Hour 1 tablet in the morning Orally Once a day * Electronic signature of Porfirio Howard DO on 08/11/2025 at 07:00 PM ESTSign off status: Pending * Appointment Provider: Brenda Howard Date: 0 12/17/2024 Generated for Printing/Faxing/eTransmitting on:?08/11/2025 07:00 PM EST
[2025-08-11 17:42] VITALS: BP 106/72; PULSE 69; TEMP 36.7; O2SAT 98; BMI 38.0
[2025-08-11] MEDS: HYDROCODONE/ACET 5-325 MG TABLET 1 TAB PO (18:23)
[2025-08-11] MEDS: KETOROLAC TROMETHAMINE 30 MG/ML VIAL IM (18:24)
[2025-08-11] MEDS: ORPHENADRINE 60 MG/2 ML VIAL IM (18:24)
[2025-08-11] MEDS: LIDOCAINE 5% PATCH 1 PATCH TOPICAL (18:25)
--- NOTE | 2025-08-11 18:37 | ED.GENADUL1 ---
HPI HPI - General Adult General Chief complaint: Back Pain/Injury Stated complaint: LOWER LEFT BACK PAIN GOING DOWN THE LEG Time Seen by Provider: 08/11/25 16:57 Source: patient Mode of arrival: walk-in Limitations: no limitations History of Present Illness HPI narrative: Patient is a 39-year-old female with a past medical history of back pain and left-sided lumbar radiculopathy that presents to the emergency department today with complaints of increasing pain for the past 2 weeks. She denies any trauma. She used to see pain management here in [place] but had an insurance issue and now her pain medications are manage by her PCP. She takes 100 mg twice daily of gabapentin, 15 mg of Mobic, and 1000 mg of Tylenol daily. She did have a lumbar ablation about a year ago with pain management. Today she reports that her low back pain is more on the left and travels down her buttock all the way down to her toes. She notes this is a change as it used to stop around her knee. She notes that the pain is throbbing and shooting. She has not had an MRI in a few years. She denies any saddle anesthesia, bowel or bladder incontinence/retention, or leg numbness/weakness. She does have an appointment with pain management on August 29. Related Data Home Medications ?Medication ?Instructions ?Recorded ?Confirmed hydrochlorothiazide 25 mg tablet 25 mg PO DAILY 06/16/23 07/26/24 lisinopril 20 mg tablet 20 mg PO DAILY 06/16/23 07/26/24 metoprolol succinate 25 mg 25 mg PO DAILY 06/16/23 07/26/24 tablet,extended release 24 hr biotin 10,000 mcg capsule 10,000 mcg PO DAILY 07/18/23 07/26/24 hydroxyzine HCl 25 mg tablet 25 mg PO TID PRN anxiety 04/04/24 07/26/24 bupropion HCl 150 mg 24 hr tablet, 150 mg PO DAILY 06/25/24 07/26/24 extended release (Wellbutrin XL) escitalopram oxalate 10 mg tablet 10 mg PO DAILY 06/25/24 07/26/24 (Lexapro) gabapentin 600 mg tablet 300 mg PO BID 07/26/24 Previous Rx's ?Medication ?Instructions ?Recorded acetaminophen 300 mg-codeine 30 mg 1 tab PO BID PRN pain #45 tabs 03/28/24 tablet baclofen 10 mg tablet See Rx Instructions .Route 06/05/24 .COMPLEX #60 tabs meloxicam 15 mg tablet 15 mg PO DAILY #30 tabs 06/05/24 ondansetron 4 mg disintegrating 4 mg PO Q6H PRN nausea and 08/07/24 tablet vomiting #12 tabs acetaminophen 300 mg-codeine 30 mg See Rx Instructions .Route 09/05/24 tablet .COMPLEX PRN pain #20 tabs gabapentin 300 mg capsule 300 mg PO BID #60 caps 09/05/24 acetaminophen 300 mg-codeine 30 mg See Rx Instructions .Route 10/18/24 tablet .COMPLEX PRN pain #20 tabs hydrocodone 5 mg-acetaminophen 325 1 tab PO Q6H PRN pain 5 days #20 11/02/24 mg tablet tabs acetaminophen 300 mg-codeine 30 mg 1 tab PO DAILY PRN pain #20 tabs 12/11/24 tablet gabapentin 300 mg capsule 300 mg PO BID #60 caps 12/11/24 acetaminophen 300 mg-codeine 30 mg See Rx Instructions .Route 01/22/25 tablet .COMPLEX PRN pain #20 tabs gabapentin 300 mg capsule 300 mg PO BID #60 caps 01/22/25 meloxicam 15 mg tablet 15 mg PO DAILY #30 tabs 01/22/25 hydrocodone 5 mg-acetaminophen 325 1 tab PO Q6H PRN pain #14 tabs 08/11/25 mg tablet Allergies Allergy/AdvReac Type Severity Reaction Status Date / Time buspirone (From BuSpar) Allergy Severe Migraine Verified 08/11/25 17:42 sulfamethoxazole (From Allergy Severe Anaphylaxis Verified 08/11/25 17:42 Bactrim) trimethoprim (From Bactrim) Allergy Severe Anaphylaxis Verified 08/11/25 17:42 venlafaxine (From Effexor) Allergy Severe syncope Verified 08/11/25 17:42 oxycodone (From Percocet) AdvReac Severe Anxiety Verified 08/11/25 17:42 Opioid HPI Opioid Management Most Recent Opioid Data: Last Pain Scale 9 Today, 18:23 Last MAR Pain Assessment Today, 18:24 Review of Systems ROS Status of ROS 10 or more systems reviewed and unremarkable except as noted in history and below [facility] Medical History Osteoarthritis ?M19.90 - Unspecified osteoarthritis, unspecified site (ICD-10) Acid reflux ?K21.9 - Gastro-esophageal reflux disease without esophagitis (ICD-10) Sleep apnea ?G47.30 - Sleep apnea, unspecified (ICD-10) HTN (hypertension) ?I10 - Essential (primary) hypertension (ICD-10) Surgical History Hx of cholecystectomy ?Z90.49 - Acquired absence of other specified parts of digestive tract (ICD-10) H/O section ?Z98.891 - History of uterine scar from previous surgery (ICD-10) History of hysterectomy ?Z90.710 - Acquired absence of both cervix and uterus (ICD-10) Social History Smoking status: Current every day smoker Little interest or pleasure in doing things: not at all Feeling down, depressed, or hopeless: not at all Exam Narrative Exam Narrative: General: No distress, age-appropriate Skin: Warm, dry, no pallor. No rash. Head: Normocephalic, atraumatic. Neck: Supple, non-tender. Eye: Pupils are equal, round and EOMI. No scleral icterus. Ears, Nose, Mouth, and Throat: No nasal mucosal hypertrophy. Oral mucosa is moist, no posterior oropharynx erythema, uvula is mid-line Cardiovascular: Regular Rate and Rhythm without murmur, gallop or rub. Respiratory: No accessory muscle use or respiratory distress. Back: No midline thoracic tenderness, midline lumbar tenderness, left SI joint tenderness with palpation. 5/5 bilateral lower extremity strength. Sensation intact distally with light touch to bilateral lower extremities. Positive straight leg raise on the left. Negative clonus bilaterally. Musculoskeletal: Full ROM of all extremities, no calf or popliteal tenderness Neurological: A&O x4. No cranial nerve dysfunction observed. No truncal ataxia. Moves all extremities. Sensation intact. Psychiatric: Cooperative and interactive. Normal mood and affect. Constitutional Vital Signs, click to edit/add: Last Vital Signs Temp 98.0 F 08/11/25 17:42 Pulse 69 08/11/25 17:42 Resp 16 08/11/25 17:42 BP 106/72 08/11/25 17:42 Pulse Ox 98 08/11/25 17:42 O2 Del Method Room Air 08/11/25 17:42 Documenting provider has reviewed patient's vital signs: yes Course Vital Signs Vital signs: Vital Signs Temperature 98.0 F 08/11/25 17:42 Pulse Rate 69 08/11/25 17:42 Respiratory Rate 16 08/11/25 17:42 Blood Pressure 106/72 08/11/25 17:42 Pulse Oximetry 98 08/11/25 17:42 Oxygen Delivery Method Room Air 08/11/25 17:42 Temperature 98.0 F 08/11/25 17:42 Pulse Rate 69 08/11/25 17:42 Respiratory Rate 16 08/11/25 17:42 Blood Pressure 106/72 08/11/25 17:42 Pulse Oximetry 98 08/11/25 17:42 Oxygen Delivery Method Room Air 08/11/25 17:42 Medical Decision Making MDM Narrative Medical decision making narrative: This is a 39-year-old female with a history of chronic back pain and left-sided lumbar radiculopathy who presents with an acute exacerbation of her symptoms. Her complaints of increasing low back pain radiating down the left leg to the toes, associated with throbbing and shooting pain, are concerning for possible recurrent radiculopathy or a new herniated disc. On physical examination, there are no red flags for cauda equina syndrome, and motor strength is 5/5 bilaterally in the lower extremities with intact distal sensation to light touch. The patient denies bowel or bladder dysfunction, saddle anesthesia, or significant leg weakness. In the emergency department, the patient was treated with a combination of medications including a lidocaine patch, 30 mg IM Toradol, 60 mg IM Norflex, and 5 mg [place], which resulted in significant improvement in her pain. A short course of [place] 5 mg was prescribed for breakthrough pain until she is able to follow up with her primary care physician or see pain management on August 29. OAR[place] reviewed and no issues identified. The patient?s pain management regimen will be re-evaluated at that time. The decision to discharge the patient with prescribed pain medications was made after discussing the risks and benefits of continued use, and ensuring the patient understands the need for follow-up. Patient voices understanding, pain was controlled, and patient was discharged in stable condition with plans for follow-up with pain management. Differential Diagnosis Differential Diagnosis: Lumbar disc herniation, spinal stenosis, SI joint dysfunction Discharge Plan Discharge Chief Complaint: Back Pain/Injury Clinical Impression: Lumbar radiculopathy Patient Disposition: Home, Self-Care Time of Disposition Decision: 18:51 Condition: Good Mode of Transportation: Private Vehicle Prescriptions / Home Meds: New hydrocodone-acetaminophen 5-325 mg tablet 1 tab PO Q6H PRN (Reason: pain) Qty: 14 0RF No Action lisinopril 20 mg tablet 20 mg PO DAILY hydrochlorothiazide 25 mg tablet 25 mg PO DAILY metoprolol succinate 25 mg tablet extended release 24 hr 25 mg PO DAILY hydroxyzine HCl 25 mg tablet 25 mg PO TID PRN (Reason: anxiety) baclofen 10 mg tablet See Rx Instructions .ROUTE .COMPLEX Qty: 60 2RF Rx Instructions: 1-2 tabs daily meloxicam 15 mg tablet 15 mg PO DAILY Qty: 30 2RF gabapentin 300 mg capsule 300 mg PO BID Qty: 60 0RF acetaminophen-codeine 300-30 mg tablet See Rx Instructions .ROUTE .COMPLEX PRN (Reason: pain) Qty: 20 0RF Rx Instructions: 1 TABLET PO EVERYDAY PRN #20 TO LAST 30 DAYS bupropion HCl [Wellbutrin XL] 150 mg tablet extended release 24 hr 150 mg PO DAILY escitalopram oxalate [Lexapro] 10 mg tablet 10 mg PO DAILY acetaminophen-codeine 300-30 mg tablet See Rx Instructions .ROUTE .COMPLEX PRN (Reason: pain) Qty: 20 0RF Rx Instructions: 1 TABLET PO EVERYDAY PRN #20 MUST LAST 30 DAYS gabapentin 300 mg capsule 300 mg PO BID Qty: 60 0RF acetaminophen-codeine 300-30 mg tablet 1 tab PO DAILY PRN (Reason: pain) Qty: 20 0RF acetaminophen-codeine 300-30 mg tablet See Rx Instructions .ROUTE .COMPLEX PRN (Reason: pain) Qty: 20 0RF Rx Instructions: 1 TABLET PO EVERYDAY PRN #20 MUST LAST 30 DAYS meloxicam 15 mg tablet 15 mg PO DAILY Qty: 30 2RF gabapentin 300 mg capsule 300 mg PO BID Qty: 60 0RF Rx Instructions: MUST LAST 30 DAYS biotin 10,000 mcg capsule 10,000 mcg PO DAILY acetaminophen-codeine 300-30 mg tablet 1 tab PO BID PRN (Reason: pain) Qty: 45 0RF Rx Instructions: 1 tab po bid #45 ondansetron 4 mg tablet,disintegrating 4 mg PO Q6H PRN (Reason: nausea and vomiting) Qty: 12 0RF hydrocodone-acetaminophen 5-325 mg tablet 1 tab PO Q6H PRN (Reason: pain) 5 Days Qty: 20 0RF gabapentin 600 mg tablet 300 mg PO BID Print Language: Slovenian Instructions: Lumbar Radiculopathy (ED), Lower Back Exercises (ED) Referrals: MARIE HENRY [Primary Care Provider, Family Practice] - 1 week Discharge Date/Time: 08/11/25 19:16
--- OUTSIDE RECORDS SUMMARY | 2025-08-11 18:59 | XMS_ITS | CCD ---
Author Organization [facility] Care Team Providers Care Administrative Fellow Name Role Phone Unavailable Primary Care Provider UnavailVIANNEY Yadav Attending Unavailable BESSIE MOSES Referring Unavailable Kera, Physician Primary Care Provider UnavailMILANA Jorge Admitting Unavailable MILANA HENRY Attending Unavailable MILANA HENRY Primary Care Unavailable JOSHUA BAILEY Admitting Unavailable JOSHUA BAILEY Attending Unavailable MILANA HENRY Primary Care Unavailable DR RICARDO WEBB V Consulting Unavailable JOSHUA BAILEY Consulting Unavailable MILANA HENRY Primary Care Unavailable CATHERINE BAEZ Consulting Unavailable JOSHUA BAILEY Admitting Unavailable JOSHUA BAILEY Attending Unavailable UMBERTO SO Consulting Unavailable MILANA HENRY Primary Care Unavailable DR TERRANCE ALLISON [...] Unavailable Giashleyitis , Andrius Venessa Attending Unavailable Gironal BARROW, Andrius Vamanda Attending Unavailable Frances BARROW, Andrius Vamanda Attending Unavailable Frances BARROW, Andrius Venessa Attending Unavailable Frances BARROW, Andrius Vytsharda Attending Unavailable Frances BARROW, Andrius Vytsharda Attending Unavailable Frances BARROW, Andrius Venessa Attending Unavailable Frances BARROW, Andrius Venessa Attending Unavailable Laurel ALEXANDER Attending Unavailable Unavailable Primary Care Provider Unavailgianna Henry MD, Milana Unavailable Unallocated , Noms Provider Primary Care Provi chapis JULIO MORRISON Attending Unavailable JULIO MORRISON Referring Unavailable JULIO MORRISON Attending Unavailable Allergies Allergy ClassificationReported Allergen(s)Allergy TypeDate of OnsetReaction(s) Facility (8 sources)Acetaminophen / oxyCODONEDrug Rhauevn37-49-3066BxuowdlXyukt Health- [place], [place] (8 sources)busPIRoneDrug Xkrpasy18-74-3613Dpvfg: See Comments, Headache, Unknown [place], [place] (8 sources)Sulfamethoxazole / TrimethoprimDrug Uokkeun25-97-8175XgrbltowykbWswai Health- [place], [place] (2 sources)Acetaminophen / oxyCODONE; 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: [Percocet]Drug Allergy 11-84-2911[facility] (2 sources)Adhesive agentDrug allergy (disorder)31-83-4414Mfl [facility] (3 sources)busPIRone; 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: [BuSpar]Drug Egikkgn80-15-6012Fpp [facility] (2 sources)Latex; 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: [Latex]Drug allergy (disorder)[facility] (1 source)Sulfamethoxazole / TrimethoprimDrug AllergyThe [facility] (1 source)venlafaxineDrug AllergyThe [facility] (1 source)Adhesive bandage; 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: [Adhesive Bandage]Propensity to adverse reactions (disorder)[facility] Rep[facility] (1 source)Sulfamethoxazole / Trimethoprim; 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: [Bactrim]Drug Allergy [facility] (5 sources)LatexAllergy to ieahqwjzc05-56-1105[facility] Medications Current Medications MedicationDrug Class(es)DatesSig (Normalized)Sig (Original)24 hr buPROPion hydrochloride 300 mg extended release oral tablet (5 sources)Aminoketonetake 1 tablet by mouth once daily in the morningbuPROPion XL (Wellbutrin XL) 300 MG 24 hr tablet TAKE 1 TABLET BY MOUTH EVERY DAY IN THE MORNING FOR 30 DAYS Activecitalopram 40 mg oral tablet (2 sources)Serotonin Reuptake Inhibitorcitalopram (CELEXA) 40 MG tablet Take 60 mg by mouth daily 0 Activeescitalopram 10 mg oral tablet (5 sources)Serotonin Reuptake InhibitorStart: 41-52-0105ccku 1 tablet by mouth once dailyescitalopram (Lexapro) 10 MG tablet TAKE 1 TABLET BY MOUTH EVERY DAY FOR 30 DAYS 05/30/2024 Activegabapentin 100 mg oral capsule (5 sources)Anti-epileptic AgentStart: 03-22-1334ldwutmjaut (Neurontin) 100 MG capsule 04/07/2025 ActivehydroCHLOROthiazide 25 mg oral tablet (8 sources)Thiazide DiuretichydroCHLOROthiazide (HYDRODiuril) 25 MG tablet 1 (one) time each day at the same time ActiveComment on above:Take 25 mg by mouth once daily.lisinopril 20 mg oral tablet (8 sources)Angiotensin Converting Enzyme Inhibitortake 1 tablet by mouth in the morninglisinopril 20 MG tablet Take 20 mg by mouth in the morning. ActiveComment on above:Take 20 mg by mouth once daily.meloxicam 15 mg oral tablet (5 sources)Nonsteroidal Anti-inflammatory DrugStart: 97-15-2758hlipmdbdr (Mobic) 15 MG tablet 04/07/2025 Ykdwhj03 hr metoprolol succinate 25 mg extended release oral tablet (8 sources)beta-Adrenergic Blockermetoprolol succinate XL (Toprol-XL) 25 MG 24 hr tablet TAKE 1/2 TABLET BY MOUTH ONCE A DAY 30 Activetake 1 tablet by mouth once dailymetoprolol succinate (TOPROL XL) 50 MG extended release tablet Take 50 mg by mouth daily 0 ActiveComment on above:Take 25 mg by mouth once daily. predniSONE 20 mg oral tablet (2 sources)Start: 04-08-2025 End: 92-43-6626kagm 1 tablet by mouth once dailypredniSONE (Deltasone) 20 MG tablet Indications: Achilles tendinitis of right lower extremity Take 1 tablet (20 mg) by mouth Daily for 10 days 10 tablet 04/08/2025 04/18/2025 Active Problems Active Problems Problem ClassificationProblemDateDocumented DateEpisodic/ChronicAnxiety disorders (1 source)Anxiety disorder, unspecified; 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: [ANXIETY DISORDER UNSPECIFIED]Onset: 21-43-8255MvfodeqJcwurirxv hypertension (1 source)Essential hypertension; 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: [Essential (primary) hypertension]32-62-6504FgcfgulHvoabjlp cause codes: Natural/environment (1 source)Exposure to other specified factors, initial encounter; 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: [Exposure to needle, initial encounter]Headache; including migraine (5 sources)Headache; including migraine; 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: [HEADACHE UNSPECIFIED] Onset: 89-62-3894Wscduwozlwvyia (1 source)Unspecified osteoarthritis, unspecified site; 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: [UNSPECIFIED OSTEOARTHRITIS UNS SITE]Onset: 71-12-5314FjzjkoiWxjsq acquired deformities (2 sources)Contracture of joint of right ankle; 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: [Contracture, right ankle]71-66-4895NegatlsYgabd aftercare (1 source)Other detention (current) drug therapy; 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: [OTH MCFP CURRENT DRUG THERAPY]Onset: 67-60-2360GvieogcvDddaj connective tissue disease (1 source)Synovial cyst of popliteal space [Crowder], right knee; 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: [Synovial cyst of popliteal space (Crowder), right knee]Onset: 60-73-6605Ntlxvqrp Other connective tissue disease (1 source)Pain in right lower leg; 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: [Pain in right lower leg]Onset: 65-73-5268XnjoszorFunnx connective tissue disease (2 sources)Pain in right foot; 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: [Pain in right foot]04-08-2025 EpisodicOther connective tissue disease (4 sources)Right achilles tendonitis; 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: [Achilles tendinitis, right leg]06-28-0990TspvycgsNnlsm connective tissue disease (3 sources)Synovitis and tenosynovitis; 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: [Other synovitis and tenosynovitis, right ankle and foot]66-35-1152NljshshvSwcrk connective tissue disease (2 sources)Calcaneal spur of right foot; 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: [Calcaneal spur, right foot]16-75-9267UvcwuvfiEdqzy connective tissue disease (2 sources)Enthesopathy of lower limb; 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: [Other enthesopathy of right foot and ankle]54-93-4941FcvgniesQnlxa nervous system disorders (1 source)Other chronic pain; 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: [OTHER CHRONIC PAIN]Onset: 71-60-8884RzvmswfDinelchp codes; unclassified (1 source)Acquired absence of other specified parts of digestive tract; 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: [ACQ ABSENCE OTH PART DIGESTV TRACT]Onset: 70-97-6237Yirweisx Residual codes; unclassified (1 source)Acquired absence of both cervix and uterus; 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: [ACQUIRED ABSENCE BOTH CERVIX AND UTERUS]Onset: 13-30-9218XcmihhbtLtqgvichydm; intervertebral disc disorders; other back problems (1 source)Other intervertebral disc displacement, lumbar region; 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: [OTH IV DISC DISPLACEMENT LUMBAR RGN]Onset: 49-93-2662PivtdguIsqvhzgmt-related disorders (1 source)Nicotine dependence, cigarettes, uncomplicated; 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: [NICOTINE DEPEND CIGARETTES UNCOMP]Onset: 55-00-6526UfnlwdhItivzxeinjnz (4 sources)LOW BACK PAIN, UNSPECIFIED; 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: [LOW BACK PAIN, UNSPECIFIED]Onset: 10-02-2021 Past or Other Problems Problem ClassificationProblemDateDocumented DateEpisodic/ChronicConditions associated with dizziness or vertigo (3 sources)Dizziness and giddiness; 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: [DIZZINESS AND GIDDINESS] Onset: 83-16-8623TnepgvqzZqtkb injuries and conditions due to external causes (1 source)History of falling; 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: [HISTORY OF FALLING]Onset: 70-38-3056DdcioyqnVpmzcyw (1 source)Syncope and collapse; 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: [SYNCOPE AND COLLAPSE]Onset: 31-19-5421QsqssqudZzqatoiscwyk (1 source)LOW BACK PAIN, UNSPECIFIED; 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: [LOW BACK PAIN, UNSPECIFIED] Onset: 06-28-2022 Results Test NameValueInterpretationReference RangeFacilityXR Foot - right 3 Viewson 91-08-0562Wbgeraj Result: Radiographs: AP, MO, and lateral views obtained. AP/MO/LAT: pedal radiographs demonstrate intact cortical margins and anatomic alignment. Joint spaces are maintained throughout the midfoot forefoot and hindfoot without evidence of acute fracture dislocation or arthropathy Large spur slightly fractionated right site 3 of the calcaneusLake Regional Health System HealthcareRadiology Study observation (narrative)NOMS HealthcareCNOVon 80-77-7950BEBYNxvtri Visit (WALKMN) SILVER ANDUJAR ([id number]) 1985 F Date Time Provider Department 07/15/23 1:45 PM PRISCILLA ALBERT During your visit today, we recorded the following information about you: Temperature Pulse Blood pressure 98 degrees 89/minute 131/81 Priscilla Albert, LINUX SYSTEM ENGINEER.SPECTROSCOPIST 07/15/2023 4:34 PM Signed CC: Headache and [...] seek emergency care Gayatri Tony, MSN, RN- LINUX SYSTEM ENGINEER Student Gayatri Tony, student nurse practitioner, and myself have interviewed the patient. I re-performed the HPI and physical exam. Assessment and plan was developed together. I spent a total of 30 minutes on the date of the service which included preparing to see the patient, mgur-tj-jzjc patient care, completing clinical documentation, obtaining and/or reviewing separately obtained history, performing a medically appropriate examination, counseling and educating the patient/family/caregiver, and ordering medications, tests, or procedures. Priscilla Albert APRN.SPECTROSCOPIST Referring Provider: SELF [[id number]] Allergies As of Date: 07/15/2023 Noted Allergy Reaction BUSPIRONE 04/21/2018 14 - Other: See Comments OXYCODONE-ACETAMINOPHEN 04/21/2018 9 - Itching SULFAMETHOXAZOLE-TRIMETHOPRIM 04/21/2018 10 - Anaphylaxis Date Reviewed: 07/15/2023 Reviewed by: Priscilla Albert APRN.SPECTROSCOPIST - Fully Assessed Reason for Visit: Headache [...] Text Encounter Status:Closed by PRISCILLA ALBERT on [facility]/23[facility] DUP LOWER EXTREMITY RIGHT VENon 04-63-0293LV DUP LOWER EXTREMITY RIGHT VENEXAMINATION: DUPLEX VENOUS ULTRASOUND OF THE RIGHT LOWER [...] Signed by: Henrry Sweeney MD 08/26/22 Final resultNormChristian HospitalComment on above:Order Comment: Reason for exam:->pain What reading provider will be dictating this exam?->CRCXR KNEE RIGHT (3 VIEWS)on 07-88-3308MR KNEE RIGHT (3 VIEWS)EXAMINATION: THREE XRAY VIEWS OF THE RIGHT KNEE [...] Interpreted by: Henrry Sweeney MD Signed by: Hernry Sweeney MD 08/26/22 Final resultNormChristian HospitalComment on above:Order Comment: Reason for exam:->painXR LSPINE 2_3 VIEWSon 70-02-2713SR LSPINE 2_3 VIEWS EXAMINATION: XR LSPINE 2_3 VIEWS HISTORY: Low back pain COMPARISON: No relevant comparison available. FINDINGS: BONES: No acute fracture or dislocation. Mild degenerative spondylosis and facet osteoarthropathy DISC SPACES: Normal. No significant disc height narrowing, subluxation, or endplate abnormality. PARASPINOUS: Negative. No paraspinous abnormality is seen. OTHER: Negative. IMPRESSION: Mild degenerative changes Electronically authenticated by: RICARDO WEBB Date: 2022-06-28 14:32NoCleveland Clinic Mentor HospitalCULTURE URINEon [id number] URINECulture Observations: MODERATE GROWTH OF MIXED SKIN CHARLY. NO POTENTIAL PATHOGENS SEEN.NormalThe Kittanning HospitalComment on above:Performed By: #### URCX #### [facility] [address] [place] [address] Dr. Reba Altamirano W MANUAL DIFFon [id number] LYMPH #NormalUc Health HospitalComment on above:Performed By: #### HARDY #### [facility] [address] [place] [address] Dr. Reba SwainATYPICAL LYMPH %NormalUc Health HospitalComment on above: Performed By: #### MILLICENTMAN #### [facility] [address] [place] [address] Dr. Reba Irwin #Normal0.0-0.3The [facility] HospitalComment on above: Performed By: #### HARDY #### [facility] [address] [place] [address] Dr. Reba Irwin %Normal0-5The [facility] HospitalComment on above:Performed By: #### HARDY #### [facility] [address] [place] [address] Dr. Reba Cavanaugh #0.08 103/ulNormal0.00-0.10The [facility] HospitalComment on above:Performed By: #### HARDY #### [facility] [address] [place] [address] Dr. Reba Cavanaugh %1.0 %Normal0.2-2.0The [facility] HospitalComment on above: Performed By: #### HARDY #### [facility] [address] [place] [address] Dr. Reba Nichole #NormalUc Health HospitalComment on above:Performed By: #### CBCNIKI #### [facility] [address] [place] [address] Dr. Reba Nichole %NormalCrystal Clinic Orthopedic CenterComment on above:Performed By: #### HARDY #### [facility] [address] [place] [address] Dr. Reba SwainCORRECTED WBCNormal4.0-11.0The [facility] HospitalComment on above: Performed By: #### CBCMAN #### [facility] [address] [address] [address] Reba Shaa #0.08 103/ulNormal0.00-0.70The [facility] HospitalComment on above:Performed By: #### CBCNIKI #### [facility] [address] [address] [address] Reba Saha%1.0 %Normal0.9-7.0The [facility] HospitalComment on above: Performed By: #### CBCNIKI #### [facility] [address] [address] [address] Reba SwainHCT42.3 %Btvaiw82.0-48.0The [facility] HospitalComment on above: Performed By: #### CBCNIKI #### [facility] [address] [place] [address] Dr. Reba SwainHGB14.0 g/rbWpwtdq82.0-16.0The [facility] HospitalComment on above: Performed By: #### CBCNIKI #### [facility] [address] [address] [address] Reba Norris #0.83 103/ulCritically low1.20-3.80The [facility] on above:Performed By: #### CBCNIKI #### [facility] [address] [address] [address] Reba Norris%10.0 %Critically low20.5-60.0The [facility] HospitalComment on above:Performed By: #### CBCNIKI #### [facility] [address] [place] [address] Dr. Reba TreadwellH30.6 viMucreq47.7-34.0The [facility] HospitalComment on above: Performed By: #### CBCMAN #### [facility] [address] [address] [address] Reba TreadwellHC33.1 g/wnAetdtj58.9-35.2The [facility] HospitalComment on above:Performed By: #### HARDY #### [facility] [address] [address] [address] Reba TreadwellV92.4 vDPpbiaq48.0-99.0The [facility] HospitalComment on above: Performed By: #### HARDY #### [facility] [address] [address] [address] Reba SernaOCYTE #NormalThe [facility] HospitalComment on above: Performed By: #### HARDY #### [facility] [address] [address] [address] Reba SernaOCYTE %NormalCrystal Clinic Orthopedic CenterComment on above: Performed By: #### HARDY #### [facility] [address] [address] [address] Reba De La Rosa#0.25 103/ulCritically low0.30-0.80The [facility] Comment on above:Performed By: #### HARDY #### [facility] [address] [place] [address] Dr. Reba De La Rosa%3.0 %Normal1.7-12.0The [facility] HospitalComment on above: Performed By: #### HARDY #### [facility] [address] [place] [address] Dr. Reba SwainMPV10.3 fLNormal9.5-13.5The [facility] HospitalComment on above: Performed By: #### HARDY #### [facility] [address] [place] [address] Dr. Reba Solomon #NormalCrystal Clinic Orthopedic CenterComment on above:Performed By: #### HARDY #### [facility] [address] [place] [address] Dr. Reba BullockOCYTE %NormalCrystal Clinic Orthopedic CenterComment on above:Performed By: #### HARDY #### [facility] [address] [place] [address] Dr. Reba CasianoBCNormalThe [facility] HospitalComment on above:Performed By: #### HARDY #### [facility] [address] [address] [address] Reba SwainPLT190 103/ijCjofig836-489Lml [facility] HospitalComment on above: Performed By: #### HARDY #### [facility] [address] [address] [address] Reba SwainRBC4.58 106/ulNormal4.20-5.40The [facility] HospitalComment on above:Performed By: #### HARDY #### [facility] [address] [address] [address] Reba SwainRDW13.3 %Ujucnm00.0-15.0The [facility] HospitalComment on above: Performed By: #### HARDY #### [facility] [address] [place] [address] Dr. Reba Miller #7.06 103/ulCritically high1.40-6.50The [facility] Comment on above:Performed By: #### HARDY #### [facility] [address] [place] [address] Dr. Reba Miller %85.0 %Critically high43.0-75.0The [facility] HospitalComment on above:Performed By: #### HARDY #### [facility] [address] [place] [address] Dr. Reba SwainWBC8.3 103/ulNormal4.0-11.0The [facility] HospitalComment on above: Performed By: #### HARDY #### [facility] [address] [place] [address] Dr. Reba Lindsey HEAD WO CONon [id number] HEAD WO CONHEAD CT WITHOUT CONTRAST, 12/21/2021 6:23 PM EDT: [...] Electronically authenticated by: Joe SO Date: 2021-12-21 19:59[facility] URINE PROFILEon 54-77-8869Gqpswbvtf Ql (U)NegativeNormal NEGATIVECrystal Clinic Orthopedic CenterComment on above:Performed By: #### MAGALY UMICRO #### [facility] [address] [address] [address] Reba SwainClarity (U)CLEARNormalCLEARCrystal Clinic Orthopedic CenterComment on above: Performed By: #### MAGALY UMICRO #### [facility] [address] [place] [address] Dr. Reba Kraftlor (U)YELLOWNormalYELLOWCrystal Clinic Orthopedic CenterComment on above: Performed By: #### MAGALY UMICRO #### [facility] [address] [place] [address] Dr. Reba Fuchs micrscopic examination will be performed if indicated. NormalCrystal Clinic Orthopedic CenterComment on above:Performed By: #### MGAALY UMICRO #### [facility] [address] [address] [address] Reba SwainGlucose Ql (U)NegativeNormalNEGATIVECrystal Clinic Orthopedic CenterComment on above:Performed By: #### MAGALY UMICRO #### [facility] [address] [address] [address] Reba SwainHemoglobin Ql (U)NegativeNormalNEGATIVECrystal Clinic Orthopedic Center Comment on above:Performed By: #### MAGALY UMICRO #### [facility] [address] [address] [address] Reba SwainKetones Ql (U)NegativeNormalNEGATIVECrystal Clinic Orthopedic CenterComment on above:Performed By: #### MAGALY UMICRO #### [facility] [address] [address] [address] Reba SwainLEUKOCYTESNegativeNormalNEGATIVEThe [facility] HospitalComment on above:Performed By: #### ESTEPHANIA MCKENZIE #### [facility] [address] [place] [address] Dr. Reba Matrite Ql (U)NegativeNormalNEGATIVEThe [facility] HospitalComment on above:Performed By: #### WESLEY MCKENZIERO #### [facility] [address] [place] [address] Dr. Reba SwainpH (U)7.0 [pH]Normal5-9The [facility] HospitalComment on above: Performed By: #### WESLEY MCKENZIERO #### [facility] [address] [place] [address] Dr. Reba SwainProtein (U) [Mass/Vol]100 mg/dLAbnormalNEGATIVE/ TRACEThe [facility] HospitalComment on above:Performed By: #### WESLEY MCKENZIERO #### [facility] [address] [place] [address] Dr. Reba SwainSPEC GRAVITY1.044Cynrvb9.005-<=1.025The [facility] HospitalComment on above:Performed By: #### WESLEY MCKENZIERO #### [facility] [address] [place] [address] Dr. Reba Shaffer MICRO INDINDICATEDNormalThe [facility] HospitalComment on above: Performed By: #### ESTEPHANIA MCKENZIE #### [facility] [address] [place] [address] Dr. Reba Archuletabilinogen Qn (U)0.2 {Tamia'U}/dLNormal0.2 - 1.0The [facility] HospitalComment on above:Performed By: #### WESLEY MCKENZIERO #### [facility] [address] [place] [address] Dr. Reba SwainPROF CHEM 8 (BAS METB)on 41-42-5215Xzbtf gap [Moles/Vol]14.8 mmol/LNormalThe [facility] HospitalComment on above:Performed By: #### BMP #### [facility] [address] [address] [address] Reba SwainCalcium [Mass/Vol]8.5 mg/dLNormal8.5-10.1The [facility] Comment on above:Performed By: #### BMP #### [facility] [address] [address] [address] Reba SwainChloride [Moles/Vol]100 mmol/JOyiply10-704Ydb [facility] Comment on above:Performed By: #### BMP #### [facility] [address] [address] [address] Reba SwainCO2 [Moles/Vol]23.7 mmol/FNcjfyt18.0-32.0The [facility] Comment on above:Performed By: #### BMP #### [facility] [address] [address] [address] Reba SwainCreatinine [Mass/Vol]0.79 mg/dLNormal0.55-1.02The [facility] HospitalComment on above:Performed By: #### BMP #### [facility] [address] [address] [address] Britton ChangEGFR-AF JAPANESE>60Normal>=60The [facility] HospitalComment on above:Performed By: #### BMP #### [facility] [address] [address] [address] Reba LrGFR-NON AF JAPANESE>60Normal>=60The [facility] HospitalComment on above:Performed By: #### BMP #### [facility] [address] [address] [address] Reba SwainGlucose [Mass/Vol]107 mg/dLCritically whvu09-916Wsm [facility] HospitalComment on above:Performed By: #### BMP #### [facility] [address] [address] [address] Reba SwainPotassium [Moles/Vol]3.5 mmol/LNormal3.5-5.1The [facility] Comment on above:Performed By: #### BMP #### [facility] [address] [address] [address] Reba SwainSodium [Moles/Vol]135 mmol/LCritically nzj621-214Ucf [facility] on above:Performed By: #### BMP #### [facility] [address] [place] [address] Dr. Reba Petit nitrogen [Mass/Vol]9.0 mg/dLNormal7.0-18.0The [facility] on above:Performed By: #### BMP #### [facility] [address] [place] [address] Dr. Reba Petit nitrogen/Creatinine [Mass ratio]11.4 mg/mgNoCleveland Clinic Mentor HospitalCompine rest [facility] services on above:Performed By: #### BMP #### [facility] [address] [place] [address] Dr. Reba Flaherty, HIGH SENSITIVITYon 07-72-0651KMZRXN3.3 pg/mLNormal 4.0-51.3The [facility] on above:Result Comment: CUT-OFF POINTS HAVE BEEN ESTABLISHED BASED ON THE FOURTH UNIVERSAL DEFINITIONS OF MYOCARDIAL INFARCTION. THE UPPER REFERENCE LIMIT (URL) OF TROPONIN, DEFINED THE 99TH PERCENTILE OF cTnI DISTRIBUTION IN A REFERENCE POPULATION, HAS BEEN CONFIRMED THE DECISION THRESHOLD FOR NC DIAGNOSIS.Performed By: #### HSTROPN #### [facility] [address] [place] [address] Dr. Reba Dove MICROSCOPIC ONLYon 50-91-2219GHAEIMSDECKSALbgdbenoVUNQ SEEN [facility] on above:Performed By: #### MAGALY UMICRO #### [facility] [address] [place] [address] Dr. Reba Lucas identified Cx Nom (U)INDICATEDCleveland Clinic South Pointe HospitalCompine rest [facility] mental [facility] services on above:Performed By: #### MAGALY UMICRO #### [facility] [address] [place] [address] Dr. Reba PrattSEENAbnormalNONE SEENSamaritan North Health Center on above: Performed By: #### MAGALY UMICRO #### [facility] [address] [address] [address] Reba SwainCrystals LM Nom (Urine sed)NONE SEENNormalNONE SEENThe [facility] HospitalCompine rest [facility] on above:Performed By: #### ERUR, UMICRO #### [facility] [address] [address] [address] Britton ChangEpithelial cells LM Ql (Urine sed)FEWAbnormalNONE SEEN /RAREThe Flower HospitalCompine rest [facility] services on above:Performed By: #### ERUR, UMICRO #### [facility] [address] [address] [address] Reba SwainMUCOUSTRACEAbnormalNONE SEENThe Flower HospitalCompine rest [facility] services on above:Performed By: #### ERUR, UMICRO #### [facility] [address] [address] [address] Reba SwainOsxzwRHT3-3Qlwcuz7-6Ler [facility]Comp[facility] on above:Performed By: #### ERUR, UMICRO #### [facility] [address] [address] [address] Reba SwainWBC2-5AbnormalNONE SEENThe [facility] HospitalCompine rest [facility] on above: Performed By: #### ERUR, UMICRO #### [facility] [address] [place] [address] Dr. Reba SwainXR lumbar spine min 4V*on 78-82-3701WL lumbar spine min 4V* [facility] [place] [address] [place] [address] XRay Report Signed Patient: Silver Andujar MR#: [id number] : 1985 Acct:[id number] Age/Sex: 35 / F ADM Date: 01/14/21 Loc: [place] Room: Type: [facility] CLI Attending Dr: Madonna Torrez NP [...] Sweeney Jr., M.D.01/14/2021 6:46 PM Dictation Location: [place] [address] Transcribed By: [facility] 01/14/211845 Dictated By: Henrry Sweeney Jr, MD 01/14/211840 Signed By: 01/14/211845[facility] HospitalARS-CoV-2on 02-16-2020 SFQQ-BpL-8Ugw DetectedNormalNot DetectedMercy Memorial HospitalComment on above:Result Comment: (NOTE) Testing was performed using the Aptima SARS-CoV-2 assay. This test was developed and its performance characteristics determined by [facility]. This test has not been FDA cleared [...] detected) result in this assay. Performed At: =[address] [place] [id number] Macy Ortega MD Ph:[phone] By: #### ACOV #### [facility] [address] [place], [place] [id number] Assurance Senior Manager Insurance: Bronson Webster MD Vital Signs Date TimeVital SignValuePerforming HuwagqlvpSrvwksob67-20-5222 10:59-0400Body .3 cmMarc Dolce DPM FACFAS Work Phone: [phone] [place], [place] 9492309-08-2025 10:59-0400Body mass index (BMI) [Ratio]39.05 kg/m2Marc Dolce DPM FACFAS Work Phone: [phone] [place], [place] 9492309-08-2025 10:59-0400Body qvfjet972.01 kgMarc Dolce DPM FACFAS Work Phone: [phone] [place], [place] 9492308-25-2025 09:45-0400Body .3 cmMarc Dolce DPM FACFAS Work Phone: [phone] [place], [place] [address]492308-25-2025 09:45-0400Body mass index (BMI) [Ratio]39.05 kg/m2Marc Dolce DPM FACFAS Work Phone: [phone] [place], [place] 9492308-25-2025 09:45-0400Body .01 kgMarc Dolce DPM FACFAS Work Phone: [phone] [place], [place] [address]492312-01-2023 13:44-0500Body temperature 98.01 [degF]Priscilla Albert APRN.SPECTROSCOPIST Work Phone: [facility]12-01-2023 13:44-0500Diastolic blood prravuzw45 mm[Hg]Priscilla Albert APRN.SPECTROSCOPIST Work Phone: [facility]12-01-2023 13:44-0500Heart rate89 /min Priscilla Albert APRN.SPECTROSCOPIST Work Phone: [facility]12-01-2023 13:44-0500Systolic blood coktnkwu802 mm[Hg]Priscilla Albert APRN.SPECTROSCOPIST Work Phone: [facility]05-16-2020 05:16-0400BMI (Body Mass Index)37.24 kg/r4CeoqlmnSchwenksville, [place]05-16-[place] 05:16-0400Body Yjerqruqqpi15.3 [degF][place], [place]05-16-2020 05:16-0400Body bcyzhb596.11 kgStSchwenksville, [place]05-16-[place] 05:16-0400BP Mhvnarurj17 mm[Hg][place], [place]05-16-2020 05:16-0400BP Isazyqoh976 mm[Hg][place], [place]05-[place] 05:16-0400Height 180.3 cmSteBangor, [place]05-16-[place] 05:16-0400Pulse (Heart Rate) 60 /minSteBangor, [place]05-[place] 05:16-0400Pulse Tgxdddup31 % [place], [place]05-16-2020 05:16-0400Respiratory Rate18 /min [facility], [place] Encounters Encounter DateEncounter TypeCare ProviderFacilityStart: 04-22-2025 End: 47-63-0041Bjlsnp flowsheetMarc D Dolce DPM FACFAS Work Phone: [facility]nStart: 04-22-2025 End: 09-82-7429Sfwlpu flowsheetMarc D Dolce DPM FACFAS Work Phone: noms [facility] HospitalnStart: 04-22-2025 End: 08-27-4819wvwpastbazHGGW D DOLCENot AvailableStart: 04-22-2025 End: 88-50-8192Nyhhln outpatient visit 15 minutesMarc D Dolce DPM FACFAS Work Phone: noms NMA PODComment on above:Achilles tendinitis of right lower extremity (Primary Dx)Start: 04-08-2025 End: 96-53-5403Lxyhbw flowsheetMarc D Dolce DPM FACFAS Work Phone: noms [facility] AustintownStart: 04-08-2025 End: 71-67-0077Uzgtlm flowsheetMarc D Dolce DPM FACFAS Work Phone: noms [facility]ownStart: 04-08-2025 End: 29-26-3073Olbnixdcm encounterMarc D Dolce DPM FACFAS Work Phone: noms NMA PODComment on above:Foot OrthoticsStart: 04-08-2025 End: 64-10-6163mwqqivfnlfRXRZ D DOLCENot AvailableStart: 04-08-2025 End: 58-05-5199Nuvjvf outpatient new 30 minutesMarc D Dolce DPM FACFAS Work Phone: noms NMA PODComment on above:Right foot pain (Primary Dx); Achilles tendinitis of right lower extremity; Other synovitis and tenosynovitis, right ankle and foot; Calcaneal spur of foot, right; Ankle contracture, right; Other enthesopathy of right foot and ankle [M77.51]Start: 08-16-2024 End: 12-93-1758qqnaculagpPrfc T AMESFacility:[facility] Start: 06-25-2024 End: 76-36-5765kqdjveqljyGqjqfvr Vytautas Giedraitis MDFacility:PM [place] Start: 05-28-2024 End: 74-73-6971rwagtsitinTfdjdol Vytautas Giedraitis MDFacility:PM [place] Start: 04-30-2024 End: 70-89-3234upawzaerfaCxchsdn Vytautas Giedraitis MDFacility:PM [place] Start: 03-26-2024 End: 79-98-1864oobwblifiiPsfiszp Vytautas Giedraitis MDFacility:PM [place] Start: 03-12-2024 End: 90-15-0344yvweevswbeXstcmqn Vytautas Giedraitis MDFacility:PM [place] Start: 08-22-2023 End: 85-38-4045riruecxrtqHytaaqs Vytautas Giedraitis MDFacility:PM [place] Start: 08-01-2023 End: 82-03-7984efnqvnbbrjCcmquwn Vytautas Giedraitis MDFacility:PM [place] Start: 07-18-2023 End: 35-32-7199ljfvmexgnfBltjhfr Vytautas Giedraitis MDFacility:PM [place] Start: 07-15-2023 End: 85-79-2121gdsnkazpnrSDDBNDY WILLIAM TOBEYFacility:[facility] Start: 07-15-2023 End: 07-11-0168Lnqwkoq encounter procedurePriscilla Albert APRN.CNP Work Phone: walk In ClinicComment on above:Primary hypertension (Primary Dx)Start: 08-26-2022 End: 93-40-8912Ddbifxpjs department patient visitTHFreeman Neosho Hospitaltart: 06-28-2022 End: 09-17-9260hqpdoyxuwrIFXVIC CRAMERFacility:K1Fyuhn: 12-21-2021 End: 98-86-4266jsrptxqaydSGXMVR CRAMERFacility:F6Fytcr: 47-62-6356vxcpglzmlm MILANA CRAMERFacility:O0Qaufj: 09-27-2021 End: 44-25-1688dqngcldsykRRUUEZ RODRIGUEZFacility:X0Kipvk: 08-11-2021 End: 16-53-0870fcvwucfuzrLU MARJAN HAILEFacility:W3Zhnhk: 09-22-2020 End: 53-72-1676Cfrokoa encounter procedureJaz Iglesias Work Phone: [facility] [employer] [facility] Start: 08-25-2020 End: 69-73-6643Yorbaoa encounter procedureJean-Claude RedmondKettering Memorial Hospitaler [facility] Centertart: 02-12-2020 End: 38-53-5750Tdzkxaa encounter procedureMOSHANIA FERRARAMercer County Community Hospitaltart: 02-12-2020 End: 71-38-0324Mwveankdwd hospital visit by physicianSSUSIE LaboratoryStart: 12-29-2019 End: 15-93-9357Rqwfycniz department patient visitSTEAultman Alliance Community Hospitaltart: 12-29-2019 End: 02-87-1600Gozqmvkgy department patient visitStearanza Jackson Work Phone: [facility]oh [facility] EDComment on above:Exposure to needle, initial encounter (Primary Dx) Procedures DateProcedureProcedure DetailPerforming ClinicianStart: 94-61-3322Bevxj foot complete minimum 3 viewsMarc D Dolce DPM FACFAS Work Phone: Start: 87-85-2583YMORMMNZXOM ORTHOPEDIC SUPPLIESTHOMAS DAWSON SPRINGSStart: 35-84-5453RIRGZ DEAN WRAPTHOMAS DAWSON SPRINGSStart: 83-47-4782Koxnvrgjay examination knee 3 viewsTHOMAS DAWSON SPRINGSStart: 81-56-7351Asb-scan xtr veins unilateral/limited studyTHOMAS [facility] Hospitalart: 84-09-5719CEVHG-19 AMBULATORY VIANNEY JACKSON Plan of Treatment DateCare ActivityDetailAuthorStart: 55-02-9616Yiyzxmk vaccinationTetanus: Every 10yrsOhioHealthStart: 85-87-2901Wbuho microalbumin profileDTaP,Tdap,Td Vaccine (2 - Td or Tdap)[facility] Rehabilitationtart: 05-06-2025 End: 88-17-2987Zwaffrb encounter fejxrwbdz13/22/2025 1:40 PM EDT Office Visit [facility] [address] [place] [phone] Julio Morrison, DPM FACFAS [address] [place] [address] [facility] NMA PODStart: 04-22-2025 End: 66-20-0787Hkoirntz Jdnjwvu5904/22/2025 10:40 AM EDT Clinical Support [facility] [address] [facility] [place] [phone] Julio Morrison, DPM FACFAS [address] [place] [address] [facility] NMA PODStart: 67-92-3700Thuwxubvw vaccinationInfluenza Vaccine (#1)[facility] HealthcareStart: 18-81-0181Njvnayjhp for malignant neoplasm of breastMammogram [facility] HealthcareStart: 72-58-4028Lrlrg-19 Vaccine ( season)Covid-19 Vaccine ()[facility] [facility] Rehabilitationtart: 77-16-8700Hnelmvuvf vaccinationInfluenza Vaccine (#1)[facility] [facility] Rehabilitationtart: 44-22-1214Mfnyxacgul AssessmentDepression AssessmentCleveland Clinic [facility] Hospital for Rehabilitationtart: 26-06-3932LQJIM-19 Vaccine (Moderna) (#2)COVID-19 Vaccine (Moderna) (#2)[facility] CarolinaHealthStart: 09-22-2020 End: 43-80-5327Aaulwnfqrxfy22/08/2021 Immunization Primary Care Jaz Iglesias MD [address] [place] [address] [phone] [facility] [employer] [facility] Hospitaltart: 26-87-7950Iywkoxklo vaccinationRockvale, [place] Start: 43-17-6402Jjhtzsmfs vaccination givenSequential Influenza Vaccine (#1) [facility] CarolinaHealthStart: 76-66-8995KNO TestingHPV TestingCleveland Clinic [facility] Hospital for Rehabilitationtart: 52-94-2813Coxtmtjnq for malignant neoplasm of cervixNOMS HealthcareStart: 38-89-1585Dgq TestingPap TestingCleveland Clinic [facility] Hospital for Rehabilitationtart: 06-26-7966Nfcdngvge for malignant neoplasm of cervixPap SmearNOMS HealthcareStart: 82-30-4534Fpsbcurxm C antibody, confirmatory testHepatitis C ScreeningOhioHealthStart: 2001 Hepatitis C ScreeningHepatitis C ScreeningCleveland Clinic [facility] Hospital for Rehabilitationtart: 07-87-3173JGG ScreeningHIV ScreeningCleveland Clinic Children's Hospital for Rehabilitationtart: 88-66-7717LIJ screeningHIV ScreeningOhHealthStart: 64-56-7460Njzgypmqdh depression screening assessment Depression Screening (PHQ9)OhioHealthStart: 16-31-4456Rozadtxxcahl vaccination Pneumococcal Vaccine (1 - PCV)[facility] Rehabilitationtart: 15-83-8844Yomxznp and physical examination, annual for health maintenanceHospital Corporation Of America VisitMsioHealth Start: 27-61-1916Tabzvrlkgt measurementCreatinine monitoringRockvale, [place] Start: 95-27-9947Clrxqbngp B Vaccine (1 of 3 - 3-dose series)Hepatitis B Vaccine (1 of 3 - 3-dose series)[facility] Rehabilitationtart: 60-16-3101Mkcmjqiwc monitoring Potassium monitoringRockvale, KYStart: 13-65-4397Bxshujakj for malignant neoplasm of cervixPap SmearOhioHealthStart: 83-80-6105Obcwcuw vaccination Tetanus: Every 10yrsOhioHealth End: 81-68-7970Tflqf-19 AmbulatoryCovid-19 Ambulatory Lab Routine Once for 1 Occurrences starting 02/12/2020 until 02/12/2020[place], KYComment on above:Once for 1 Occurrences starting 02/12/2020 until 02/12/2020Covid-19 AmbulatoryCovid-19 Ambulatory Lab Routine 02/12/2020 7:08 AM [place], [place] Immunizations Immunization DateImmunizationNotesCare KvrslmgoJrvtahoq20-03-2887sculwtfks virus vaccine, unspecified formulationJulio Morrison DPM FACFAS Work Phone: [facility] CenterVoemezlshj18-51-6951nbiagpwnr virus vaccine, unspecified formulationPriscilla Albert LINUX SYSTEM ENGINEER.SPECTROSCOPIST Work Phone: [facility] HospitalSlhwkh01-45-7970Jgvhlfn SARS-CoV-2 VaccinationMolly VegtnmWgitUauwde26-04-7522Lueuwer SARS-CoV-2 VaccinationJeGalion Community Hospital Payers DatePayer CategoryPayerPolicy [id number] VA Medical CenterBCBS [id number] [id number]-0590[id number] 2.840.1.630957.3.57[id number] 2.0.1.044548.3.579.2.415 [id number] 2.0.1.762594.3.57[id number] 2.0.1.734161.3.57[id number] 2.0.1.213063.3.57[id number] 2.0.1.031618.3.57[id number] 2.840.1.341694.3.57[id number] 2.0.1.440710.3.57[id number] 2.0.1.414564.3.57[id number] 2.0.1.204436.3.57[id number] 2.840.1.270328.3.57[id number] 2.840.1.046151.3.57[id number] 2.16.840.1.332340.3.57[id number] 2.16.840.1.361416.3.57[id number] 2.16.840.1.275546.3.57[id number] 2.16.840.1.373463.3.57[id number] 2.16.840.1.161405.3.57[id number] 2.16.840.1.895799.3.579.2.269505-32-2302Neuk-[id number]-kkc Social History DateTypeDetailFacilityStart: 12-29-2019 End: 94-09-5199Dzzgvhn smoking status NHISCurrent every day smokerCleveland Clinic Children's Hospital for Rehabilitationtart: 12-29-2019 End: 54-98-2169Anvnfmrhii smoked current (pack per day) - ReportedRockvale, KYStart: 83-14-9815Rlftkqq intakeLifetime non-drinker (finding)[place], KYStart: 90-37-6649Heouoae SDOH Alcohol Tpxdhekrp6WwlfmRockvale, [place] Start: 03-46-3422Hro Assigned At BirthNot on fileRockvale, KYExposure to SARS-CoV-2 (event)Unable to assessRockvale, KYExposure to SARS-CoV-2 (event)Not sureOhioHealthHistory of tobacco useCigarette SmokerMercy Memorial Hospital Start: 99-55-8447Miasenu use and exposureUser of smokeless tobaccoCleveland Clinic Children's Hospital for Rehabilitationtart: 07-15-2023 End: 95-97-0792Ersgzqo use panelCleveland Clinic Children's Hospital for Rehabilitationtart: 21-73-3045Umjoaqi smoking status NHISTobacco smoking consumption unknownNOAZ HealthcareStart: 04-08-2025 Tobacco use and exposureSmokeless tobacco non-userMoberly Regional Medical Center Clinical Notes 09-27-2021 to 04-22-2025 Note Date & LnyfHzpmUrzbtejw78-75-5673 Telephone encounter Note* Telephone Encounter - Keisha Heard - 04/22/2025 11:19 AM EDT Pt states she will get powersteps in 2 weeks [facility] Hvpseszmck78-90-6664 Miscellaneous Notes* Telephone Encounter - Keisha Heard - 04/22/2025 11:19 AM EDT Pt states she will get powersteps in 2 weeks * Telephone Encounter - Keisha Heard - 04/22/2025 10:54 AM EDT Pt notified of benefits, may think about powersteps * Telephone Encounter - Keisha Heard - 04/18/2025 2:25 PM EDT Note in appt screen - 04/22/25 * Telephone Encounter - Keisha Heard - 04/18/2025 2:23 PM EDT Per LJ with Gia Ref # [id number] Calendar year plan L3020 Dx: M76.61 Covered @ 80% after ded DED: $2000 0 applied OOP: $7000 $238.66 applied No PA, no exclusions, 1 pair per year $450 SELF PAY * Telephone Encounter - Keisha Heard - 04/11/2025 9:52 AM EDT Pt scanned * Telephone Encounter - MAIK Jimenez - 04/08/2025 10:56 AM EDT orthotics documented in this encounterMoberly Regional Medical CenterNgltnmtnmj27-38-3014 Telephone encounter Note* Telephone Encounter - Keisha Heard - 04/22/2025 10:54 AM EDT Pt notified of benefits, may think about powersteps [facility] CenterWknjcudtuy39-52-6712 History of Present illness Narrative* MAIK Jimenez - 04/22/2025 10:40 AM EDT Patient: Silver Andujar : 1985 PCP: Noms Provider MD Feli PCP: Noms Provider MD Feli SUBJECTIVE This individual presents with a chief complaint of painful right Achilles tendon. The pain is localized to the posterior aspect of the left calcaneus at the Achilles tendon insertion on the posteriorheel. These areas feeling significantly better with the cortisone injection. Allergies: Allergies Allergen Reactions Sulfamethoxazole-Trimethoprim Anaphylaxis Buspirone Headache and Unknown Latex Oxycodone-Acetaminophen Itching Past Medical History: Active Ambulatory Problems Diagnosis Date Noted No Active Ambulatory Problems Resolved Ambulatory Problems Diagnosis Date Noted No Resolved Ambulatory Problems No Additional Past Medical History Medications: Current Outpatient Medications: buPROPion XL (Wellbutrin XL) 300 MG 24 hr tablet, TAKE 1 TABLET BY MOUTH EVERY DAY IN THE MORNING FOR 30 DAYS, Disp: , Rfl: escitalopram (Lexapro) 10 MG tablet, TAKE 1 TABLET BY MOUTH EVERY DAY FOR 30 DAYS, Disp: , Rfl: gabapentin (Neurontin) 100 MG capsule, , Disp: , Rfl: hydroCHLOROthiazide (HYDRODiuril) 25 MG tablet, 1 (one) time each day at the same time, Disp: , Rfl: lisinopril 20 MG tablet, Take 20 mg by mouth in the morning., Disp: , Rfl: meloxicam (Mobic) 15 MG tablet, , Disp: , Rfl: metoprolol succinate XL (Toprol-XL) 25 MG 24 hr tablet, TAKE 1/2 TABLET BY MOUTH ONCE A DAY 30, Disp: , Rfl: Review of Systems: Constitutional: Denies fever, chills, nausea, vomiting. Gastrointestinal: Denies abdominal pain, cramping, diarrhea, or gastric ulcers. Musculoskeletal: Denies low back pain, knee pain, or systemic arthritis. Neurologic: Denies burning, tingling, or transient paralysis. OBJECTIVE Physical Examination: Dermatologic: Hair growth present bilaterally on feet with good skin turgor. No skin openings observed. Vascular: Dorsalis pedis and posterior tibial pulses palpable bilaterally. Capillary refill time less than 3 seconds in digits 1-5 bilaterally. Neurologic: [place]-Samir 5.07 monofilament testing intact bilaterally. Vibratory sensation intact bilaterally. Musculoskeletal: Muscle strength graded 5/5 in all intrinsic and extrinsic muscles tested. Less tenderness on direct palpation of the posterior superior lateral aspect of the right Achilles tendon insertion on the posterior calcaneus. A palpable bursa is present in this region. Mild gastrocnemius-soleus equinus deformity with mild tenderness at the Achilles tendon level. No palpable defects within the Achilles tendon. No pain elicited with ankle or subtalar joint range of motion. Diagnostic Ultrasound: Performed with 12 MHz linear probe. Findings consistent with hypoechoic Achilles tendinitis on the left with insertional bursitis at the posterior superior lateral aspect of the right heel. Small retrocalcaneal exostosis identified in this region. ASSESSMENT 1. Achilles tendinitis of right lower extremity PLAN The patient was educated regarding the pathophysiology of right Achilles tendinitis with insertional bursitis. Instructions were provided on regular stretching exercises and icing of the posterior Achilles tendon insertion. I dispensed 2 heel lifts the patient to be worn bilaterally we will recommended orthotic devices once her deductible has been met she will follow up with me in 2 weeks for reassessment. MAIK Jimenez documented in this encounterMoberly Regional Medical CenterXvwoepjvlm89-68-8750 Telephone encounter Note* Telephone Encounter - Keisha Heard - 04/18/2025 2:25 PM EDT Note in appt screen - 04/22/25 [facility] CenterTmmnbvzkrr03-37-6474 Telephone encounter Note* Telephone Encounter - Keisha Heard - 04/18/2025 2:23 PM EDT Per VARINDER with Gia Ref # [id number] Calendar year plan L3020 Dx: M76.61 Covered @ 80% after ded DED: $2000 0 applied OOP: $7000 $238.66 applied No PA, no exclusions, 1 pair per year $450 SELF PAY [facility] CenterNdnciropjk09-16-4438 Telephone encounter Note* Telephone Encounter - Keisha Heard - 04/11/2025 9:52 AM EDT Pt scanned [facility] CenterAyxdxwuotg26-81-7793 Telephone encounter Note* Telephone Encounter - MAIK Jimenez - 04/08/2025 10:56 AM EDT orthotics [facility] CenterKqkcystlbk95-58-6374 History of Present illness Narrative* MAIK Jimenez - 04/08/2025 9:20 AM EDT Patient: Silver Andujar : 1985 PCP: Noms Provider MD Feli PCP: Noms Provider MD Feli SUBJECTIVE This individual presents with a chief complaint of painful right Achilles tendon. The pain is localized to the posterior aspect of the left calcaneus at the Achilles tendon insertion on the posteriorheel. The patient reports pain and swelling persisting for over two months. A prominent exostosis is also noted in this region. The patient denies any history of significant trauma. Multiple conservative treatments have been attempted, including nonsteroidal anti- inflammatory drugs, footwear modifications, ice application, and ggmk-aly-ytfqrdm orthotic devices, without symptomatic improvement. Allergies: Allergies Allergen Reactions Sulfamethoxazole-Trimethoprim Anaphylaxis Buspirone Headache and Unknown Latex Oxycodone-Acetaminophen Itching Past Medical History: Active Ambulatory Problems Diagnosis Date Noted No Active Ambulatory Problems Resolved Ambulatory Problems Diagnosis Date Noted No Resolved Ambulatory Problems No Additional Past Medical History Medications: Current Outpatient Medications: escitalopram (Lexapro) 10 MG tablet, TAKE 1 TABLET BY MOUTH EVERY DAY FOR 30 DAYS, Disp: , Rfl: gabapentin (Neurontin) 100 MG capsule, , Disp: , Rfl: meloxicam (Mobic) 15 MG tablet, , Disp: , Rfl: buPROPion XL (Wellbutrin XL) 300 MG 24 hr tablet, TAKE 1 TABLET BY MOUTH EVERY DAY IN THE MORNING FOR 30 DAYS, Disp: , Rfl: hydroCHLOROthiazide (HYDRODiuril) 25 MG tablet, 1 (one) time each day at the same time, Disp: , Rfl: lisinopril 20 MG tablet, Take 20 mg by mouth in the morning., Disp: , Rfl: metoprolol succinate XL (Toprol-XL) 25 MG 24 hr tablet, TAKE 1/2 TABLET BY MOUTH ONCE A DAY 30, Disp: , Rfl: predniSONE (Deltasone) 20 MG tablet, Take 1 tablet (20 mg) by mouth Daily for 10 days, Disp: 10 tablet, Rfl: 0 Review of Systems: Constitutional: Denies fever, chills, nausea, vomiting. Gastrointestinal: Denies abdominal pain, cramping, diarrhea, or gastric ulcers. Musculoskeletal: Denies low back pain, knee pain, or systemic arthritis. Neurologic: Denies burning, tingling, or transient paralysis. OBJECTIVE Physical Examination: Dermatologic: Hair growth present bilaterally on feet with good skin turgor. No skin openings observed. Vascular: Dorsalis pedis and posterior tibial pulses palpable bilaterally. Capillary refill time less than 3 seconds in digits 1-5 bilaterally. Neurologic: [place]-Samir 5.07 monofilament testing intact bilaterally. Vibratory sensation intact bilaterally. Musculoskeletal: Muscle strength graded 5/5 in all intrinsic and extrinsic muscles tested. Significant tenderness on direct palpation of the posterior superior lateral aspect of the right Achilles tendon insertion on the posterior calcaneus. A palpable bursa is present in this region. Mild gastrocnemius-soleus equinus deformity with mild tenderness at the Achilles tendon level. No palpable defects within the Achilles tendon. No pain elicited with ankle or subtalar joint range of motion. Radiographs: AP, MO, and lateral views obtained. AP/MO/LAT: pedal radiographs demonstrate intact cortical margins and anatomic alignment. Joint spaces are maintained throughout the midfoot forefoot and hindfoot without evidence of acute fracture dislocation or arthropathy Large spur slightly fractionated right site 3 of the calcaneus Diagnostic Ultrasound: Performed with 12 MHz linear probe. Findings consistent with hypoechoic Achilles tendinitis on the left with insertional bursitis at the posterior superior lateral aspect of the right heel. Small retrocalcaneal exostosis identified in this region. ASSESSMENT 1. Achilles tendinitis of right lower extremity 2. Right foot pain 3. Other synovitis and tenosynovitis, right ankle and foot 4. Calcaneal spur of foot, right 5. Ankle contracture, right PLAN The patient was educated regarding the pathophysiology of right Achilles tendinitis with insertional bursitis. Instructions were provided on regular stretching exercises and icing of the posterior Achilles tendon insertion. An injection consisting of 1 cc of 2% lidocaine plain and 1 cc of Kenalog 10 was administered under ultrasound guidance into the posterior superior lateral aspect of the left Achilles tendon bursa to ensure accurate placement and avoid intratendinous injection. Custom-moldedorthotic devices were recommended. The patient underwent digital scanning for orthotic fabrication,with care taken to position the subtalar joint in neutral. The orthotics will include a 1/16 inch heel lift bilaterally to offload Achilles tendon tension. The patient was informed that orthotic fabrication will require approximately three weeks. A prescription for a Medrol Dosepak was provided with instructions for use. I dispensed a prescription for prednisone 20 mg 1 pill p.o. every day for 10days. MAIK Jimenez documented in this encounterMoberly [facility] Medical [id number] NoteHNO ID: [id number] Author: Priscilla Albert APRN.SPECTROSCOPIST Service: ? Author Type: Nurse Practitioner Type: Progress Notes Filed: 07/15/2023 4:34 PM Note Text: CC: Headache and high BP HPI: Silver Andujar is a 37 year old female who presents to the [facility] walk in clinic for the above chief [...] seek emergency care Gayatri Tony, MSN, RN- LINUX SYSTEM ENGINEER Student Gayatri Tony, student nurse practitioner, and myself have interviewed the patient. I re-performed the HPI and physical exam. Assessment and plan was developed together. I spent a total of 30 minutes on the date of the service which included preparing to see the patient, sawx-mw-ovpx patient care, completing clinical documentation, obtaining and/or reviewing separately obtained history, performing a medically appropriate examination, counseling and educating the patient/family/caregiver, and ordering medications, tests, or procedures. Priscilla Albert APRN.[facility]12-01-2023 History of Present illness Narrative* Priscilla Albert APRN.PABLO - 07/15/2023 1:49 PM EST CC: Headache and high BP HPI: Silver Andujar is a 37 year old female who presents to the [facility] walk in clinic for the above [...] seek emergency care Gayatri Tony, MSN, RN- LINUX SYSTEM ENGINEER Student Gayatri Tony, student nurse practitioner, and myself have interviewed the patient. I re-performed the HPI and physical exam. Assessment and plan was developed together. I spent a total of 30 minutes on the date of the service which included preparing to see the patient, gxzp-dq-xspd patient care, completing clinical documentation, obtaining and/or reviewing separately obtained history, performing a medically appropriate examination, counseling and educating the pat ient/family/caregiver, and ordering medications, tests, or procedures. Priscilla Albert APRN.SPECTROSCOPIST [facility] NotePROCEDURE: CT LSPINE WO CON COMPARISON: None. HISTORY: [...] Electronically authenticated by: RICARDO WEBB Date: 2021-09-27 13:13[facility] Primary hypertension- Primary Unspecified essential hypertension [facility] Diagnosis Right foot pain- Primary Pain in soft tissues of limb Achilles tendinitis of right lower extremity Other synovitis and tenosynovitis, right ankle and foot Calcaneal spur of foot, right Ankle contracture, right Other enthesopathy of right foot and ankle [M77.51] documented in this encounter [facility]* Diagnosis Achilles tendinitis of right lower extremity- Primary documented in this encounter [facility] HealthcareEvaluation [facility]* Diagnosis Achilles tendinitis of right lower extremity- Primary Other synovitis and tenosynovitis, right ankle and foot documented in this encounter [facility] Discharge Instructions * Instructions* Crystal Little MD - 12/29/2019 Thank you for visiting [facility] Emergency Department. You need to call No primary care provider on file. to make an appointment as directed for follow up. Should you have any questions regarding your care or further treatment, please call [facility] Emergency Department at [phone]. Take any medications as prescribed, if given [...] Exposure to needle, initial encounter Advance Directives TypeDate RecordedPatient RepresentativeExplanationAdvance Directives and Living WillPower of AttorneyTypeDate RecordedPatient RepresentativeExplanationAdvance Directives and Living Will Summary Purpose Family History No Family History Records FoundNo Family History Records FoundNo Family History Records FoundNo Family History Records FoundNo Family History Records FoundNo Family History Records FoundNo Family History Records FoundNo Family History Records Found Additional Source Comments Reason for Visit (unrecogniz ed section and content) ReasonCommentsBody Fluid ExposureReasonCommentsHeadachePt is here for a headache and high blood pressure that started a couple days agoReasonCommentsHeel PainRT heel painReasonCommentsAchilles PainF/U RT foot achilles inj q6NjtiqvYmivh Date CommentsFoot Kqjwbosdf96/25/2025 INFORMATION SOURCE (unrecogn ized section and content) DATE CREATED AUTHOR 03/06/2020 [facility] DATE CREATED AUTHOR AUTHOR'S ORGANIZ ATION 01/30/2021 [facility] DATE CREATED AUTHOR AUTHOR'S ORGANIZ ATION 06/30/2022 [facility] DATE CREATED AUTHOR AUTHOR'S ORGANIZ ATION 08/26/[address] [facility] DATE CREATED AUTHOR AUTHOR'S ORGANIZ ATION 07/18/2023 [facility] DATE CREATED AUTHOR AUTHOR'S ORGANIZ ATION 07/03/2024 [facility] DATE CREATED AUTHOR AUTHOR'S ORGANIZ ATION 08/17/2024 [facility] DATE CREATED AUTHOR AUTHOR'S ORGANIZ ATION 04/23/2025 [facility] EPIC Source Comments (unrecognize d section and content) In the event this informatio n is protected by the Federal Confidentiality of Alcohol and Drug Abuse Patient Records regulations: The Federal rules restrict any use of the information to criminally investigate or prosecute any alcohol or drug abuse patient.[facility] Care Teams (unrecognized sec tion and content) Team MemberRelationshipSpecialtyStart DateEnd Date Henrry Vargas DO PCP - GeneralFamily Medicine10/21/16Team MemberRelationshipSpecialtyStart DateEnd Date Unallocated, Nomaileen Boyd MD [address] [place] [address] PCP - GeneralFamily Medicine04/08/25 Milana Henry MD [address] [place] [address] Referring [facility]icianCand[facility]04/08/25Team MemberRelationshipSpecialtyStart DateEnd Date Unallocated, Rabia Boyd MD [address] [place] [phone] PCP - Generalmily Medicine04/08/25 Milana Henry MD [address] [place] [address] Referring [facility]icianCandler Hospital04/08/25Team MemberRelationshipSpecialtyStart DateEnd Date Unallocated, Rabia Boyd MD [address] [place] [id number] PCP - [facility]mi[facility]04/08/25 Milana Henry MD [address] [place] [address] Referring [facility]icianCandler [facility]04/08/25Team MemberRelationshipSpecialtyStart DateEnd Date Unallocated, Rabia Boyd MD [address] [place] [address] PCP - Generalmily Medicine04/08/25 Milana Henry MD [address] [place] [address] Referring PhysicianCandler Hospital04/08/25 FOR RECORDS PERTAINING TO PATIENTS WHO ARE [...] BE BASED ON THE PRIMARY CLINICAL RECORDS. [facility]. provides no warranty or guarantee of the accuracy or completeness of information in this document.
--- OUTSIDE RECORDS SUMMARY | 2025-08-11 18:59 | XMS_ITS | Clinical Summary ---
Author Organization [employer] Address [id number] [address] [place] [address] Care Team Providers Care Emt I/99 Name Role Phone Henrry Lizarraga DO Primary Care Provider Unavaholli lable Allergies Active AllergyReactionsCriticalityNoted DateComments Sulfamethoxazole-Fupxtuybvpxk83/07/8302Gpirkzjgv98/07/2018 Oxycodone-Tsqafhshefvmd74/07/2018 Medications MedicationSigDispense QuantityRefillsLast FilledStart DateEnd DateStatus lisinopril (PRINIVIL,ZESTRIL) 20 mg tablet Take 20 mg by mouth daily.Active hydroCHLOROthiazide (HYDRODIURIL) 25 mg tablet Take 25 mg by mouth daily.Active dicyclomine (BENTYL) 10 mg capsule Take 10 mg by mouth 4 (four) times a day before meals and nightly.Active docusate sodium (COLACE) 100 mg capsule Take 100 mg by mouth 2 (two) times a day.Active loratadine (CLARITIN) 10 mg tablet Take 10 mg by mouth daily.Active predniSONE (DELTASONE) 20 mg tablet Take 20 mg by mouth daily.Active HYDROcodone-acetaminophen (NORCO) 5-325 mg per tablet Take 1 tablet by mouth every 6 (six) hours as needed for pain.Active metoprolol succinate XL (TOPROL-XL) 50 mg 24 hr tablet Take 50 mg by mouth daily.Active hydrocortisone-pramoxine (PROCTOFOAM-HS) rectal foam Insert 1 applicator into the rectum 2 (two) times a day.Active mybkiwm-oicbzxwli-ozgvagngiaoq (MIDRIN) 65-100-325 mg per capsule Take 1 capsule by mouth 4 (four) times a day as needed for headaches.Active sodium,potassium,mag sulfates (SUPREP BOWEL PREP KIT) 17.5-3.13-1.6 gram recon soln 177 ml,actual weight, 2 times daily, Oral 1 kit 04/21/2018Active hydrocortisone (ANUSOL-HC) 2.5 % rectal cream Insert 1 application into the rectum 2 (two) times a day. 30 g 04/21/2018Active Active Problems No known active problems Family History Medical HistoryRelationNameCommentsAlcohol abuseFatherDrug abuseFather HyperlipidemiaFatherHypertensionFatherAlcohol abuseMotherDrug abuseMother HyperlipidemiaMotherHypertensionMotherRelationNameStatusCommentsFatherMother Social History Tobacco UseTypesPacks/DayYears UsedDateSmoking Tobacco: FormerCigarettes Smokeless Tobacco: Never Comments:QUIT AUGUST Alcohol UseStandard Drinks/WeekCommentsYes0 (1 standard drink = 0.6 oz pure alcohol)VERY RAREChildcareAnswerDate WrspqqpcEuusbkntnMskbfzm58/13/2019 EmploymentAnswerDate KpqxiuwfStcwwbvfijUubpxsb27/13/2019Purpose - LifeAnswerDate RecordedPurpose and direction in mopiQzckztm24/11/2021CommentsNoSex and Gender InformationValueDate RecordedSex Assigned at BirthNot on fileLegal Sex Bzupjr4104/21/2018 9:20 AM EDTGender IdentityNot on fileSexual OrientationNot on file Last Filed Vital Signs Vital SignReadingTime TakenCommentsBlood Lgcmvnfl176/801 10:20 AM EDT Pulse--Temperature--Respiratory Rate--Oxygen Saturation--Inhaled Oxygen Concentration--Ckxgxn302.5 kg (281 lb)05/24/2018 10:20 AM JDMHyxhpn179.3 cm (5' 11 )05/24/2018 10:20 AM EDTBody Mass Index39.191 10:20 AM EDT Plan of Treatment Health MaintenanceDue DateLast DoneCommentsDepression Pxfeejvuq95/26/1996Tobacco Jedvymopp92/26/1996Adult BMI Ieemhldqy92/26/2002DTaP,Tdap and Td Vaccines (1 - Tdap)2002Pap Smear09/09/20049435Hkfwksydcls65Influenza Ebhwkom7304/15/2025 Medical Devices Not on file Procedures Procedure NamePriorityDate/TimeAssociated DiagnosisCommentsCOLONOSCOPYRoutine 05/03/2018 1:26 PM EDTfrom Last 3 Months or Most Recently Relevant to Health Maintenance Care Teams Team MemberRelationshipSpecialtyStart DateEnd Date Henrry Lizarraga DO PCP - [facility]04/13/18
--- OUTSIDE RECORDS SUMMARY | 2025-08-11 18:59 | XMS_ITS | Clinical Summary ---
Author Organization [facility] Address [address] [place] [address] Care Team Providers Care Smog Technician Name Role Phone Milana Tripp MD Unavailable [phone] Unallocated, Noms Provider Primary Care Provi chapis Allergies Active AllergyReactionsCriticalityNoted DateCommentsBuspironeHeadache,Unknown 04/21/20183482Nibtg16/25/2025Oxycodone-EpeibjftdzsukOixdftrBku09/07/2018 Sulfamethoxazole-PgfngnpomsgnNhcefqteimmGefp34/07/2018 Medications MedicationSigDispense QuantityRefillsLast FilledStart DateEnd DateStatus buPROPion XL (Wellbutrin XL) 300 MG 24 hr tablet TAKE 1 TABLET BY MOUTH EVERY DAY IN THE MORNING FOR 30 DAYSActive escitalopram (Lexapro) 10 MG tablet TAKE 1 TABLET BY MOUTH EVERY DAY FOR 30 DAYS05/30/2024ctive gabapentin (Neurontin) 100 MG capsule 5Active hydroCHLOROthiazide (HYDRODiuril) 25 MG tablet 1 (one) time each day at the same timeActive metoprolol succinate XL (Toprol-XL) 25 MG 24 hr tablet TAKE 1/2 TABLET BY MOUTH ONCE A DAY 30Active lisinopril 20 MG tablet Take 20 mg by mouth in the morning.Active meloxicam (Mobic) 15 MG tablet 5Active Active Problems No known active problems Social History Tobacco UseTypesPacks/DayYears UsedDateSmoking Tobacco: UnknownSmokeless Tobacco: Never Tobacco Cessation:Counseling Given: Yes CommentsUnknownSex and Gender InformationValueDate RecordedSex Assigned at BirthNot on fileLegal XnnSzivku41/15/2023 7:20 PM EDTGender IdentityNot on fileSexual OrientationNot on file Last Filed Vital Signs Vital SignReadingTime TakenCommentsBlood Pressure--Pulse--Temperature-- Respiratory Rate--Oxygen Saturation--Inhaled Oxygen Concentration--Sjfudx964 kg (280 lb)04/22/2025 10:59 AM NOIElgckb303.3 cm (5' 11 )04/22/2025 10:59 AM EDT Body Mass Index39.05004/22/2025 10:59 AM EDT Plan of Treatment Health MaintenanceDue DateLast DoneCommentsPap Smear2004Cervical Cancer Tmrkxnihf87/26/2014HPV/Zpmiyn8009/09/20132622Wdqaauplk04/26/2024Influenza Vaccine (#1) 51, 06/04/2022, 05/26/2021, Additional history exists Pneumococcal Vaccine: Pediatrics (0 to 5 Years) and At-Risk Patients (6 to 64 Years)Aged OutNo longer eligible based on patient's age to complete this topic Insurance Care Teams Team MemberRelationshipSpecialtyStart DateEnd Date Unallocated, Noms Deb, [address] [place] [address] PCP - GeneralFamily Medicine04/08/25 Milana Tripp MD [address] [place] [address] Referring PhysicianFamily Medicine04/08/25
--- OUTSIDE RECORDS SUMMARY | 2025-08-11 19:00 | XMS_ITS | Patient Health Record ---
Author Organization [facility] es Address [address] [place] [address] Care Team Providers Care Clamshell Engineer Name Role Phone Porfirio Howard Primary Care Provider [phone] Allergies Allergen (clinical drug ingredient) Drug/Non Drug Allergy documented on EMR Reaction Allergy Type Onset Date Status BuSpardizzinessDrug AllergyActiveacetaminophen / oxycodonePercocetanaphylaxis Drug AllergyActive Reason For Referral Reason PT CALLED / NO RESPO NSE Referral for CPAP mask refitting Diagnosis 1 STEPHANIE on CPAP (G47.33) Referral Organization [facility] Referring Provider First Name Porfirio Referring Provider Last Name Lee Referring Provider [facility], . Referred Provider Specialty Sleep Medici ne Referral Priority Routine Medications Medication SIG (Take, Route, Frequency, Duration) Notes Start Date End Date Status Mobic 15MG DAILYActivehydroCHLOROthiazide 25 MG Tablet1 tablet in the morning Orally Once a dayActiveGabapentin 300 MG Capsule1 capsule Orally Once a day2X A DAY ActiveVitamin U7CuvkgoCsqdgpxmzb 40 MG Capsule Delayed Release1 capsule 1/2 to 1 hour before morning meal Orally Once a dayActiveBiotinActiveWomens Multivitamin ActiveWellbutrin XL 300 MG Tablet Extended Release 24 Hour1 tablet in the morning Orally Once a dayActiveLisinopril 20 MG Tablet1 tablet Orally Once a day ActiveLexapro 20 MG Tablet1 tablet Orally Once a dayActive Social History Tobacco Use: Social History Observation Description Date Details (start date - stop date) Current Smoker NA - NA Social History GeneralSocial InfoQuestionAnswerNotesTransition of Care:ER//hospital since last office visit?NoSpecialist seen since last office visit?NoSubstance abuse/mental health issues of patient/familyPatient -DeniesAbility to understand healthcare/treatmentPatient:GoodSocial/Support Concerns:Patient:NoBehaviors affecting healthPoor/Risky Behaviors:Denies-Communication Barrier:Language Barrier?:NoDrug/Alcohol:Social InfoQuestionAnswerNotesAUDIT-C (Standard)Did you have a drink containing alcohol in the past year?ZmFmkelm4XwpnpclozwkekoOxbzenbv Tobacco Use:Social InfoQuestionAnswerNotesTobacco Control (Standard)Tobacco use: Current smoker? How often do you smoke cigarettes?Every day? How many cigarettes a day do you smoke?11-20? How soon after you wake up do you smoke your first cigarette?6-30 minutes? Are you interested in quitting?Not ready to quit Problems Problem Type SNOMED Code ICD Code Onset Dates Problem Status W/U Status Risk Notes Problem Hypoglycemia (994248205) Hypoglycemia, un specified (E16.2) ActiveconfirmedProblemObstructive sleep apnea syndrome (67727810)STEPHANIE on CPAP (G47.33)Activeconfirmed Vital Signs Heart Rate 77 /min 11/13/2024 Xlczfmbwlow29.5 degrees Sismheedom35/01/2025Respiratory Rate20 /min11/13/2024 Qgocdkut44 %11/13/2024lood pressure mm Hg11/13/20242765Rihzet8JW 10IN in11/13/2024lood pressure luddfpty402 mm Hg11/13/20249722Uiqpzr500.8 lbs11/13/2024 BMI39.71 kg/m211/13/2024 Encounters Encounter Location Date Provider Diagnosis [facility] [address] [place] [address] 11/13/2024 Porfirio Howard Encounter to establish care Z76.89 ; Routine lab draw Z01.89 ; Hypoglycemia, unspecified E16.2 ; STEPHANIE on CPAP G47.33 and 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 I will order a CBC, CMP with reflex to A1c, and lipid panel. I will also add a thyroid screen given her reported hypoglycemia since she has not had thischecked previously.11/13/2024Hypoglycemia, unspecified (ICD-10 - E16.2)Pt is having reported hypoglycemia. I will order a thyroid screen to rule out thyroid etiologies. Iwill also order a CMP with reflex to A1c to recheck her A1c. I advised her to drink plenty of fluids and eat a healthy diet high in protein and low in carbs. She should also keep glucose tablets withher if she does have symptoms from hypoglycemia. I also advised her to bring in the meters she usesto verify they are reading her blood sugars correctly.11/13/2024OSA on CPAP (ICD-10 - G47.33)Pt has not had her CPAP mask be checked for fit in years. Given her fatigue, her CPAP may not be fitting or working optimally. 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 Her mildly elevated A1c may also be related then. I will order an AM cortisol to rule out [place]'s. I advised the pt to have this done by 8am. If her cortisol is high, she may need referral to endocrinology.11/13/2024OtherPt voices understanding and agrees to the plan as listed above. She will f/u with me to review results in one month. Plan Of Treatment Pending Test Test Name Order Date Cortisol 11/13/2024 Lipid Panel 11/13/2024 THYROID SCREEN 11/13/2024 Complete Blood Count Auto Diff CMP with reflex to A1C 11/13/2024 Medical (General) History Medical History History ICD Code hypertension Anxiety disorderdepressionmigraine headachesEsophageal refluxcarpal tunnelDISC BUDGLINGRIGHT HEELSurgical History Surgery Date(Month/Year) C SECTION 2X PARTIAL HYSTERECTOMY2 DNC'SGALLBLADDERlymphectomy 2XSTERIOD INJECTIONS 2X Hospitalization History Reason Date(Month/Year) SEE SURGICAL
--- OUTSIDE RECORDS SUMMARY | 2025-08-11 19:00 | XMS_ITS | Clinical Summary ---
Author Organization [facility] Address [address] [place] [address] Care Team Providers Care Franchise Business Consultant Name Role Phone Henrry Lizarraga DO Primary Care Provider Allergies Active AllergyReactionsCriticalityNoted DateCommentsBuspironeOther: See Comments 04/21/2018Oxycodone-FrjuekrmlnhppOinksqo73/07/2018Sulfamethoxazole-Trimethoprim Kilpzqbioeb64/07/2018 Medications MedicationSigDispense QuantityRefillsLast FilledStart DateEnd DateStatus metoprolol succinate ER (TOPROL XL) 25 mg 24 hr tablet Take 25 mg by mouth once daily.Active lisinopril (ZESTRIL) 20 mg tablet Take 20 mg by mouth once daily.Active hydroCHLOROthiazide 25 mg tablet Take 25 mg by mouth once daily.Active Active Problems No known active problems Social History Tobacco UseTypesPacks/DayYears UsedDateSmoking Tobacco: Every DayCigarettes Smokeless Tobacco: Current Tobacco Cessation:Ready to Q uit: No; Counseling Given: Yes CommentsNoSex and Gender InformationValueDate RecordedSex Assigned at BirthNot on fileLegal QejLmqsub06/02/2012 8:15 AM ESTGender IdentityNot on file Sexual OrientationNot on file Last Filed Vital Signs Vital SignReadingTime TakenCommentsBlood Lkbxciqb684/8107/15/2023 1:44 PM EST Kentx699607/15/2023 1:44 PM HINMbgjqsvuxsq99.7 ??C (98 ??F)07/15/2023 1:44 PM EST Respiratory Rate--Oxygen Saturation--Inhaled Oxygen Concentration--Weight-- Height--Body Mass Index-- Plan of Treatment Health MaintenanceDue DateLast DoneCommentsAnxiety Eaditivlc23/26/2002Depression Burzfcrto64/26/2002HIV Wdvjmwhbg00/26/2002Hepatitis C Ddepmvgqz82/26/2002 Hepatitis B Vaccine (1 of 3 - 19+ 3-dose series)2002Pneumococcal Vaccine (1 of 2 - PCV)2002Cervical Cancer Ddckbjkvk51/26/2005HPV Vaccine (1 - 3- dose SCDM series)2010Mammogram Hhhkdihon18/26/2024Covid-19 Vaccine (3 - 2024- season)502/03/2021, 08/25/2020Influenza Vaccine (#1)2025 06/04/2022, 05/26/2021, 06/09/2020, Additional history existsDTaP,Tdap,Td Vaccine (2 - Td or Tdap) Insurance Care Teams Team MemberRelationshipSpecialtyStart DateEnd Date Henrry Lizarraga DO PCP - GeneralFamily Medicine10/21/16
--- OUTSIDE RECORDS SUMMARY | 2025-08-11 19:00 | XMS_ITS | Patient Health Record ---
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 Role Phone Qasim, Milana Primary Care Provider [phone] Allergies Allergen (clinical drug ingredient) Drug/Non Drug Allergy documented on EMR Reaction Allergy Type Onset Date Status sulfamethoxazole / trimethoprim Bactrim anaphylaxis Kendell g Allergy ActiveBuSparsevere headacheDrug AllergyActiveEffexorsyncopeDrug AllergyActive acetaminophen / oxycodonePercocetbug crawlingDrug AllergyActiveLatexLatexrash AllergyActive Results Component Value Reference Range Notes QuantiFERON-TB Gold Plus Reviewed date:10/04/2024 03:49:00 PM Interpretation: Performing Lab: Notes/Report: [facility] , QuantiFERON Incubation . Incubation performed. Reference Range: . QuantiFERON-TB Gold PlusNegativeNegative No response to M tuberculosis antigens detected. Infection with M tuberculosis is unlikely, but high risk individuals should be considered for additional testing (ATS/IDSA/CDC Clinical Practice Guidelines, 2017). The reference range is an Antigen minus Nil result of <0.35 IU/mL. Chemiluminescence immunoassay methodology Performed at: [facility] [address] [id number] Repairer Typewriter: Skyler Villagran PhD, Phone: [phone] QuantiFERON CriteriaComment. QuantiFERON-TB Gold Plus is a qualitative indirect test for M tuberculosis infection (including disease) and is intended for use in conjunction with risk assessment, radiography, and other medical and diagnostic evaluations. The QuantiFERON-TB Gold Plus result is determined by subtracting the Nil value from either TB antigen (Ag) value. The Mitogen tube serves as a control for the test. QuantiFERON TB1 Ag Value0.06. IU/mLQuantiFERON TB2 Ag Value0.04. IU/mL QuantiFERON Nil Value0.05. IU/mLQuantiFERON Mitogen Value>10.00. IU/mLPerforming Lab:see noteLC - [facility] LBGLYCOHEMOGLOBIN A1C Reviewed date:10/29/2024 03:04:45 PM Interpretation: Performing Lab: Notes/Report: [facility] ,Glycohemoglobin A1C5.64.5-6.2 % ADA RECOMMENDED LIMIT 4.0 - 6.0 ADA THERAPEUTIC TARGET < 7.0 ACTION SUGGESTED > 7.0 Estimated Average Vvmexkv130Yomkvfbhxd Lab:see noteML - [facility] LB XR ankle RT min 3V Reviewed date:02/19/2025 08:31:37 AM Interpretation: Performing Lab: Notes/Report: Source Facility: [place] [address] XRay Report Signed Patient: SILVER ANDUJAR MR#: [id number] : 1985 Acct:[id number] Age/Sex: 39 / F ADM Date: 02/18/25 Loc: ER Attending Dr: Ordering Physician: Angel Simmons Date of Service: 02/18/25 Procedure(s): XR ankle RT min 3V Accession Number(s): [id number] cc: MILANA TRIPP ; Angel Simmons [place] [address] Patient Name: SILVER ANDUJAR MRN: [id number] date: 1985 Sex: F Assigned Patient Location: ER Current Patient Location: ED.MAIN Accession/Order Number: [id number] Exam Date: 02/18/2025 19:25 Report Date: 02/18/2025 19:26 At the request of: ANGEL ALEXANDER Procedure: XR ankle RT min 3V RIGHT ANKLE - 3 views CLINICAL HISTORY: pain, injury COMPARISON: Right foot x-ray 11/02/2024 FINDINGS: Negative acute fracture or dislocation.. Moderate posterior calcaneal enthesophyte formation. Minimal plantar enthesophyte formation. XR/XR ankle RT min 3V IMPRESSION: NO ACUTE OSSEOUS FINDINGS. Impression dictated by: Trevor Hernandez M.D. 02/18/2025 7:26 PM Dictation Location: [place] [address] Electronically authenticated by: [id number] Y Date: 02/18/2025 19:26 Dictated By: Trevor Hernandez M.D. Signed By: 02/18/251928 DD/ 25 TD/TT: [place]:LAB TESTING Reviewed date:10/04/2024 03:49:00 PM Interpretation: Performing Lab: Notes/Report: [id number] Bordetella pertussis Antibodies, IgG [facility] ,Miscellaneous TestCOMMENT. Test Ordered: [id number] B pertussis IgG Ab B pertussis IgG Ab 2.16 [H ] index Reference Range: 0.00-0.94 Negative <0.95 Equivocal 0.95 - 1.04 Positive >1.04 Performed at: [facility] [address] [id number] Repairer Typewriter: Samy Saavedra MD, Phone: [phone] Performed at: [address] [id number] Repairer Typewriter: Skyler Villagran PhD, Phone: [phone] Performing Lab:[facility] noteProv[facility] LBLAB TESTING Reviewed date:10/05/2024 09:39:26 AM Interpretation: Performing Lab: Notes/Report: [id number] Tetanus/Diphtheria Antibody Profile [facility] ,Miscellaneous TestCOMMENT. Test Ordered: [id number] Tetanus/Diphtheria Ab Tetanus Antitoxoid IgG Ab 2.37 IU/mL BN Reference Range: <0.10 Interpretation: Non-Protective <0.10 Protective >=0.10 Results for this test are for research purposes only by the assay's senior care manager. The performance characteristics of this product have not been established. Results should not be used as a diagnostic procedure without confirmation of the diagnosis by another medically established diagnostic product or procedure. Diphtheria Antitoxoid Ab 0.60 IU/mL BN Reference Range: <0.10 Interpretation: Non-Protective <0.10 Protective >=0.10 For research use only. Performed at: [address] [id number] Repairer Typewriter: Samy Saavedra MD, Phone: [phone] Performed at: [address] [id number] Repairer Typewriter: Skyler Villagran PhD, Phone: [phone] Performing Lab:see noteProv[facility] LBMeasles/Mumps/Rubella Immunity Reviewed date:10/04/2024 03:49:00 PM Interpretation: Performing Lab: Notes/Report: [facility] ,Rubella Antibodies, IgG6.57Immune >0.99 index Non-immune <0.90 Equivocal 0.90 - 0.99 Immune >0.99 Measles Antibodies, LrS863.0Immune >16.4 AU/mL Negative <13.5 Equivocal 13.5 - 16.4 Positive >16.4 Presence of antibodies to Rubeola is presumptive evidence of immunity except when acute infection is suspected. Mumps Abs, IgG78.3Immune >10.9 AU/mL Negative <9.0 Equivocal 9.0 - 10.9 Positive >10.9 A positive result generally indicates past exposure to Mumps virus or previous vaccination. Performed at: [address] [id number] Repairer Typewriter: Skyler Villagran PhD, Phone: [phone] Performing Lab:see [facility] LBVaricella-Zoster V Ab, IgG Reviewed date:10/04/2024 03:49:00 PM Interpretation: Performing Lab: Notes/Report: [facility] ,Varicella-Zoster V Ab, IgGReactiveNon Reactive Please note reference interval change A Reactive result is considered evidence of immunity to VZV. Reactive indicates that VZV IgG was detected consistent with previous infection and/or vaccination. A Non Reactive result indicates that VZV IgG was not detected suggesting that immunity has not been acquired. Performed at: [address] [id number] Repairer Typewriter: Skyler Villagran PhD, Phone: [phone] Performing Lab:see [facility]Prov[facility] LBHepatitis B Surf Ab Quant Reviewed date:10/04/2024 03:49:00 PM Interpretation: Performing Lab: Notes/Report: [facility] ,Hepatitis B Surf Ab Quant<3.5Immunity>10 mIU/mL Status of Immunity Anti-HBs Level Inconsistent with Immunity 0.0 - 10.0 Consistent with Immunity >10.0 Performing Lab:see noteLC - [facility] LB Reason For Referral No Information Medications Medication SIG (Take, Route, Frequency, Duration) Notes Start Date End Date Status Varenicline Tartrate (Starter) 0.5 MG X 11 & 1 MG X 42 as directed Orally; Duration: 30 days Days 1 to 3: 0.5 mg once daily. Days 4 to 7: 0.5 mg twice daily. Maintenance (day 8 and later): 1 mg twice daily 07/03/2025 ActiveVarenicline Tartrate(Continue) 1 MG1 tablet Orally BID; Duration: 30 days 5ActiveMagnesium 400 MG1 capsule Orally Once a dayUnknownAdderall 10 MG 1 tablet Orally Twice a day; Duration: 30 5ActiveLisinopril 20 MG TAKE 1 TABLET BY MOUTH EVERY DAY; Duration: 30UnknownMetoprolol Succinate ER 25 MGTAKE 1/2 TABLET BY MOUTH ONCE A DAY; Duration: 30UnknownMeloxicam 15 MG1 tablet Orally Once a day; Duration: 30 03/07/2025UnknownhydroCHLOROthiazide 25 MGTAKE 1 TABLET BY MOUTH EVERY DAY IN THE MORNING FOR 90 DAYS; Duration: 90 UnknowntiZANidine HCl 4 MGTAKE 1 TABLET BY MOUTH TWICE A DAY; Duration: 90 days UnknownpredniSONE 20 MG2 tablet Orally Once a day; Duration: 5 06/06/2025 UnknownTopiramate 50 MGas directed Oral Once a day; Duration: 90 daystake 1 tablet am, 2 tablets pmActiveLevsin/SL 0.125 MG1 tablet under the tongue and allow to dissolve as needed Sublingual every 6 hrs11/25/2022UnknownWellbutrin XL 300 MG1 tablet in the morning Orally Once a day; Duration: 30 05/29/2024 UnknownhydrOXYzine HCl 25 MG1 tablet as needed Orally BID prn; Duration: 30 days 02/24/2024UnknownTylenol 325 MG1 tablet as needed Orally equals 1000 mg per day UnknownDicyclomine HCl 20 MGtake 1 tablet by mouth three times a day if needed; Duration: 30UnknownOmeprazole 40 MGTAKE 1 CAPSULE BY MOUTH TWICE A DAY; Duration: 30UnknownNaratriptan HCl 2.5 MG1 tablet Orally Once a day prn; Duration: 30 days05/04/2024UnknownGabapentin 100 MGtake capsule by mouth twice a day Orally bid; Duration: 30 daysUnknownPromethazine HCl 12.5 MG1 tablet as needed Orally twice a day; Duration: 10 days07/22/2025tiveEscitalopram Oxalate 20 MGTAKE 1 TABLET BY MOUTH EVERY DAY FOR 30 DAYS; Duration: 90Unknown Ondansetron HCl 4 MG1 tablet Orally BID prn; Duration: 14 days02/28/2024Unknown Immunizations Vaccine Route Administration Date Status Comme nts Flu, Flucelvax (5969-0255) (57980) 6 mos +, single-dose syringe IM Intramuscular 05/10/2023 Administered Social History Tobacco Use: Social History Observation Description Date Details (start date - stop date) Current Smoker 08/15/1998 - NA Tobacco Use/Smoking Question Answer Notes Patient is a current smoker When did you start smoking?08/15/1998How often do you smoke cigarettes?every day How many cigarettes a day do you smoke?11-20How soon after you wake up do you smoke your first cigarette?within 5 minutesAre you interested in quitting?Ready to quitAlcohol Screen (Audit-C) Question Answer Notes Did you have a drink containing alcohol in the p ast year? Yes How often did you have 6 or more drinks on one occasion in the past year?Never (0 point)How many drinks did you have on a typical day when you were drinking in the past year?3 or 4 drinks (1 point)How often did you have a drink containing alcohol in the past year?Less than monthly (1 point)Vikxhv5Bpyplsfjjcvnvi NegativeAUDIT-C (Standard) Question Answer Notes Did you have a drink containing alcohol in the p ast year? No Adupwg1FiariwqazxnamuHiqgvunt Problems Problem Type SNOMED Code ICD Code Onset Dates Problem Status W/U Status Risk Notes Problem Obstructive sleep ap fátima syndrome (disorder) (18803425) Obstructive sleep apnea (adult) (pediatric) (G47.33) ActiveconfirmedProblemChronic pain (41124965)Other chronic pain (G89.29)Active confirmedProblemIrritable bowel syndrome with diarrhea (281998464)Irritable bowel syndrome with diarrhea (K58.0)ActiveconfirmedProblemDegeneration of lumbar intervertebral disc (79191946)Other intervertebral disc degeneration, lumbar region (M51.36)ActiveconfirmedProblemSciatica (59842746)Lumbago with sciatica, left side (M54.42)ActiveconfirmedProblemChronic fatigue syndrome (disorder) (66346359)Chronic fatigue, unspecified (R53.82)ActiveconfirmedProblemBipolar disorder (47270421)Bipolar disorder (F31.9)ActiveconfirmedProblemSinusitis (97039930)Sinusitis (J32.9)ActiveconfirmedProblemmigraine (disorder) (36913751) Migraines (G43.909)ActiveconfirmedProblemHypoglycemia (976722862)Hypoglycemia (E16.2)ActiveconfirmedProblemAttention deficit hyperactivity disorder (626201596)Adult ADHD (F90.9)ActiveconfirmedProblemMixed anxiety and depressive disorder (790591021)Anxiety and depression (F41.8)ActiveconfirmedProblemObese class II (finding) (289442485093202)Class 2 obesity (E66.9)Activeconfirmed ProblemCOVID-19 (719161075)COVID-19 (U07.1)Activeconfirmed Vital Signs Heart Rate 97 /min 09/27/2024 Vzlcfljzejd85.8 degrees Lisoauayun28/13/2351Iabddnmn07 %09/27/2024lood pressure mm Hg06/06/20254589Cclalm04 in06/06/2025lood pressure wtijudsh746 mm Hg 06/06/20253359Yunpvi412 lbs1MI37.16 kg/m206/06/2025 Encounters Encounter Location Date Provider Diagnosis [facility] [address] [place] [address] 06/05/2025 Milana Tripp [facility] [place] [facility] [place] [place] [address] 06/16/2025[facility] [place] [facility] [place] [place] [address]/11/2024[facility] [address] [place] [facility] [place] [place] [address]/Pamela [facility] [place] [facility] [place] [place] [address]/03/2025 [facility] [place] [facility] [place] [place] [address]/Pamela PeggymerMigraines G43.909[facility] [place] [facility] [place] [address]/Pamela Qasim Hypoglycemia E16.2 and Hyperglycemia R73.9[facility] [place] [facility] [place] [address]/Pamela PeggymerAdult ADHD F90.9 [facility] [place] [facility] [place] [address] 06/06/2025Pamela PeggymerAdult ADHD F90.9 ; Pharyngitis J02.9 and Back pain M54.9 [facility] [place] [facility] [place] [address] 09/27/2024[facility] Z00.00 and Chronic fatigue, unspecified R53.82[facility] [place] [facility] [place] [address]/[facility] [place] [facility] [place] [address]/[facility] [place] [facility] [place] [address]/[facility] [place] [address] 10/24/2024[facility] [place] [address]/[facility] Z00.00[facility] [place] [address]/ [facility] [place] [address]/[facility] [place] [address]/[facility] [place] [address]/[facility] [place] [address] 02/01/2025Pa[facility] [place] [address]/[facility] [address] [place] [address]/[facility] [place] [address]/[facility] [place] [address]/04/2025Pa[facility] [place] [address]/[facility] [place] [address]/03/2025Milana [facility] F90.9[facility]VC[facility] [place] [address]/[facility] [facility] [place] [address]/Milana TrippMigraines G43.909[facility] [place] [address]/ Milana Kt ADHD F90.9[facility] [address] [place], [place] [address]/05/2025Milana Tripp Assessments Encounter Date Diagnosis (ICD Code) Assessment Notes Treatment Notes Treatment Clinical Notes Section Notes 08/30/2024 Migraines (ICD-10 - G43.909) has tried and failed amitriptyline, topamax, depakote and metoprolol more headache days than non headache days a month has had to call off work ER recently for migraine abortives not helping much wean off topamax 09/27/2024Wellness examination (ICD-10 - Z00.00)ok for mhnzui1209/27/2024hronic fatigue, unspecified (ICD-10 - R53.82) continue with cpap was working 2 jobs, stopped one in school as well 11/06/2024Hypoglycemia (ICD-10 - E16.2) small frequent meals protein with every meal bedtime snack with carbs and protein continue monitor have sugar on hand for lows 11/06/2024Hyperglycemia (ICD-10 - R73.9) work on healthy diet stop using CGM? repeat A1c 3-6m discussed Metformin 05/07/2025dult ADHD (ICD-10 - F90.9) CSA signed OARRS reviewed 06/06/2025dult ADHD (ICD-10 - F90.9) increase dose fu 3m 06/06/2025Pharyngitis (ICD-10 - J02.9) likely viral supportive care 10/26/2024Wellness examination (ICD-10 - Z00.00)05/22/2025dult ADHD (ICD-10 - F90.9)06/14/2025Migraines (ICD-10 - G43.909)07/02/2025dult ADHD (ICD-10 - F90.9)10/23/2025Back pain (ICD-10 - M54.9) kenalog 80 and toradol 60 prednisone burst start tomorrow Plan Of Treatment Pending Test Test Name Order Date UA (URINALYSIS, COMPLETE) 06/14/2023 HEMOGLOBIN A1C (GLYCO) 10/26/2024 HEPATITIS B SURFACE AB (HBSAB) C DIFFICILE BY PCR 02/29/2024 URINE CULTURE 06/14/2023 QUANTIFERON-TB GOLD 09/27/2024 MMR Immunity (LC) 09/27/2024 Varicella-Zoster V Ab, IgG 09/27/2024 STOOL CULTURE 02/29/2024 US PELVIS 08/19/2023 US PELVIS AND TRANSVAG 08/01/2023 BORDETELLA PERTUSSIS AB IGG 09/27/2024 DIPHTHERIA/TETANUS TITER 09/27/2024 Medications Administered Medication Instructions Date of Administration Dosage Notes Ketorolac Tromethamine 560 mgTriamcinolone 40 mg/ml580 mg Medical (General) History Medical History History ICD Code Acne L70.9 Acute vaginitis N76.0 Bipolar 1 disorder F31.9 Breast lump N63.0 COVID-19 U07.1 Degenerative joint disease M19.90 Depression F32.9 Headache R51 Hidradenitis suppurativa L73.2 Hyperinsulinemia E16.1 Hypertension I10 Low back pain at multiple sites M54.50 Migraine G43.909 Neuropathic pain M79.2 Palpitations R00.2 Sciatica M54.30 Surgical History Surgery Date(Month/Year) steroid injection right heel. Dr. Moran 04/08 medial branch block 05/08 Lumpectomy x 2 hysterectomyHemorrhoidectomyC-Section x 2gallbladderD&C g9Hrrnbm stoneSteroid injections to LS spine08/06
--- OUTSIDE RECORDS SUMMARY | 2025-08-11 19:00 | XMS_ITS | Clinical Summary ---
Author Organization [facility] Address [address], [address] [place] [address] Care Team Providers Care Manager Equity Name Role Phone Unavailable Primary Care Provider Unavailabl e Allergies Active AllergyReactionsCriticalityNoted DateComments Sulfamethoxazole-Ftrybdpeirbl87/16/0696Lkisvbifs02/16/2020 Oxycodone-Nurucfpjogllo93/16/2020 Medications MedicationSigDispense QuantityRefillsLast FilledStart DateEnd DateStatus lisinopril (PRINIVIL;ZESTRIL) 20 MG tablet Take 20 mg by mouth dailyActive metoprolol succinate (TOPROL XL) 50 MG extended release tablet Take 50 mg by mouth dailyActive hydroCHLOROthiazide (HYDRODIURIL) 25 MG tablet Take 25 mg by mouth dailyActive citalopram (CELEXA) 40 MG tablet Take 60 mg by mouth dailyActive ondansetron (ZOFRAN ODT) 4 MG disintegrating tablet Indications:NauseaTake 1 tablet by mouth every 8 hours as needed for Nausea or Vomiting 10 tablet 1Active Social History Tobacco UseTypesPacks/DayYears UsedDateSmoking Tobacco: Every DayCigarettes0.515 Smokeless Tobacco: NeverAlcohol UseStandard Drinks/WeekCommentsNever0 (1 standard drink = 0.6 oz pure alcohol)AUDIT-CAnswerDate RecordedFrequency of Alcohol EkpsqzcotujVfxkl96/16/2020Average Number of DrinksNot on file12/29/2019 Frequency of Binge DrinkingNot on file12/29/2019CommentsNoSex and Gender InformationValueDate RecordedSex Assigned at BirthNot on fileLegal SexFemale 02/26/2019 11:44 AM EDTGender IdentityNot on fileSexual OrientationNot on file Last Filed Vital Signs Vital SignReadingTime TakenCommentsBlood Xzeghird065/54008/26/2022 7:53 AM EST Jmyva463008/26/2022 7:32 AM OSJZxdgyntzvqw68.2 ??C (97.2 ??F)08/26/2022 7:32 AM ESTRespiratory Vygq016508/26/2022 7:32 AM ESTOxygen Uaduexdemk52%08/26/2022 7:32 AM ESTInhaled Oxygen Concentration--Vjhovf747.1 kg (267 lb)12/29/2019 5:16 AM ECIUjoqrk876.3 cm (5' 11 )12/29/2019 5:16 AM EDTBody Mass Index37.24012/29/2019 5:16 AM EDT Plan of Treatment Health MaintenanceDue DateLast DoneCommentsDepression Ayrwma3309/09/1995Varicella vaccine (1 of 2 - 13+ 2-dose series)1996HIV dhxklf9009/09/1998Hepatitis C wwwlil9709/09/2001Hepatitis B vaccine (1 of 3 - 19+ 3-dose series)2002 Pneumococcal 0-49 years Vaccine (1 of 2 - PCV)2002Breast cancer screen 09/09/20238459Tbpumt41/26/2024Flu vaccine (#1)510/, 05/26/2021, 06/09/2020, Additional history existsCOVID-19 Vaccine (3 - season) 502/03/2021, 1DTaP/Tdap/Td vaccine (2 - Td or Tdap)08/17/2026 08/17/2016HPV vaccine (No Doses Required)CompletedHepatitis A vaccineAged OutNo longer eligible based on patient's age to complete this topicHib vaccineAged Out No longer eligible based on patient's age to complete this topicMeningococcal (ACWY) vaccineAged OutNo longer eligible based on patient's age to complete this topicMeningococcal B vaccineAged OutNo longer eligible based on patient's age to complete this topicPolio vaccineAged OutNo longer eligible based on patient's age to complete this topic
--- OUTSIDE RECORDS SUMMARY | 2025-08-11 19:00 | XMS_ITS | Clinical Summary ---
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 Role Phone No, Physician Primary Care Provider Unavailabl e Immunizations ImmunizationAdministration DatesNext DueModerna SARS-CoV-2 Oppibdzqyly09/08/2021 ,08/25/2020 Social History Tobacco UseTypesPacks/DayYears UsedDateSmoking Tobacco: Never Assessed CommentsUnknownSex and Gender InformationValueDate RecordedSex Assigned at Not on fileLegal FfoMtbpnb28/11/2021 1:02 PM ESTGender IdentityNot on fileSexual OrientationNot on file Plan of Treatment Health MaintenanceDue DateLast DoneCommentsWellness Visit1986Depression Screening/Follow-Up (PHQ-2/9)1995Varicella Vaccines (1 of 2 - 13+ 2-dose series)1996HIV Dzwabawdn01/26/1999Hepatitis C Ngwxplhru12/26/2002Hepatitis B Vaccines (1 of 3 - 19+ 3-dose series)2002Pap Smear2004HPV Vaccines (1 - 3-dose SCDM series)2010Cervical Cancer Vebptdaav73/26/2014HPV/Cotest 2013COVID-19 Vaccine (3 - 2024- season)/03/2021, 08/25/2020 Influenza Vaccine (#1), 04/30/2017 Tetanus/Diphtheria/Pertussis (2 - Td or Tdap)Zoster Vaccines (1 of 2)4RSV Vaccines (1 - 1-dose 75+ series)2058HIB VaccinesAged OutNo longer eligible based on patient's age to complete this topicHepatitis A VaccinesAged OutNo longer eligible based on patient's age to complete this topic IPV VaccinesAged OutNo longer eligible based on patient's age to complete this topicMeningococcal ACWY VaccineAged OutNo longer eligible based on patient's age to complete this topicMeningococcal B VaccineAged OutNo longer eligible based on patient's age to complete this topicPneumococcal VaccineAged OutNo longer eligible based on patient's age to complete this topicRotavirus VaccinesAged Out No longer eligible based on patient's age to complete this topic Insurance Care Teams Team MemberRelationshipSpecialtyStart DateEnd Date No, Physician [facility] PCP - General08/25/20
== END 2025-08-11 19:16 | disposition home or self-care (01) ==
LOC: ER 18:57
PROVIDERS: Emergency Provider Student in an Organized Health Care Education/Training Program; PCP Nurse Practitioner Family
DX: M54.16 Radiculopathy, lumbar region (principal); Z79.899 Other long term (current) drug therapy; I10 Essential (primary) hypertension
CPT/HCPCS: 96372; 99284; J1885; J2360